=== PATIENT | female | born 1955 | race Caucasian/White ===

== ENCOUNTER 2016-11-28 22:41 | Emergency (ER) | payer BC, OTHER ==
[~2016-11-28] VITALS: Ht 161.3 cm; Wt 67.1 kg
[~2016-11-28 22:41] MED LIST: ALPR1TAB3 PO; ASPI325T39 PO; ATV5 PO; CALCTAB65 PO; EFF75 PO; GABA-112 PO; LEVO50TA PO; MULT-506 PO; ONDA4TAB46 PO; POTA10CA28 PO; PRLSR20 PO; RANI150T3 PO; TOPI200T14 PO; TRAM-10 PO; VALA500T60 PO; VENL150C56 PO
[2016-11-28 22:42] VITALS: TEMP 37.3; Ht 161.3 cm; Wt 67.1 kg
--- NOTE | 2016-11-28 23:17 | EMERGENCY ROOM VISIT NOTE ---
History Report prepared by Jairo: Marlon Rosado Under the Supervision of: Dr. Leanna Chery M.D. First contact with patient: 23:07 Chief Complaint: HEADACHE Stated Complaint: HEADACHE, NAUSEA, VOMITING History of Present Illness The patient is a 61 year old female who presents to the Emergency Room with complaints of a severe and worsening migraine headache that began yesterday. The patient states that her headache began yesterday, as her headaches usually do but it worsened significantly today. This headache is unlike her usual headaches in severity and its radiation. She states that the headache pain covered her entire head initially, and then concentrated to the left side. This afternoon the pain began to radiate into her jaw and down the back of her neck, which is unusual. The patient also vomited today secondary to the pain, which she has never experienced with her headaches before. There was no blood in her vomit. The patient received pain medications from EMS prior to arrival, which improved her condition slightly. The patient does have a history of a migraine induced stroke. Source of History: patient Onset: One day [employer] Position: head Symptom Intensity: severe Timing: worsening Associated Symptoms: + neck pain, + vomiting Note: Pain radiating into her jaw Review of Systems See HPI for pertinent positives & negatives. A total of 10 systems reviewed and were otherwise negative. Past Medical & Surgical Medical Problems: (1) Anxiety State Nos (2) Appendectomy (3) CVA (cerebral vascular accident) (4) Cystocele (5) Depressive Disorder Nec (6) Ectopic (7) Facial paresthesia (8) Hx-Venous Thrombosis&Embolism (9) Hysterectomy (10) Irritable Bowel Syndrome (11) Migraine Unspecified W/O Intractable Migraine (12) Mitral Valve Disorder (13) Old Myocardial Infarct (14) Paresthesia of both lower extremities (15) Pure Hypercholesterolem (16) RECTOCELE (17) Removal of ovarian cyst (18) Restless Legs Syndrome Family History Diabetes mellitus FHx: heart disease Social History Smoking Status: Never Smoker Drug Use: none Marital Status: Occupation Status: employed Current/Historical Medications Scheduled Aspirin (Aspirin Ec), 325 MG PO DAILY Calcium Carbonate-Vitamin D (Calcium 500 + D), 2 TAB PO DAILY Gabapentin (Gabapentin), 300 MG PO AMHS Gabapentin (Gabapentin), 200 MG PO AMHS Gabapentin (Neurontin), 200 MG PO BIDM Gabapentin (Neurontin), 100 MG PO QPM Levothyroxine Sodium (Synthroid), 50 MCG PO DAILY Multivitamin (Multivitamin), 1 TAB PO DAILY Omeprazole (Prilosec), 20 MG PO BID Potassium Chloride (Potassium Chloride Sr), 10 MEQ PO DAILY Ranitidine Hcl (Zantac), 150 MG PO BID Valacyclovir (Valtrex), 500 MG PO HS Venlafaxine Hcl (Effexor), 75 MG PO QPM Venlafaxine Hcl (Effexor Extended Rel), 150 MG PO QAM Scheduled PRN Alprazolam (Xanax), 1 MG PO DAILY PRN for Anxiety Lorazepam (Lorazepam), 0.5-1 MG PO HS PRN for Sleep Ondansetron Hcl (Zofran), 4 MG PO Q8 PRN for Nausea Tramadol (Ultram), 100 MG PO Q6H PRN for Pain Allergies Coded Allergies: Erythromycin (Unverified Allergy, Unknown, UNKNOWN, 11/28/16) Macrolides (Verified Adverse Reaction, Unknown, STOMACH UPSET, 11/28/16) Physical Exam Vital Signs Date Time Temp Pulse Resp B/P Pulse Ox O2 Delivery O2 Flow Rate FiO2 11/29/16 05:03 64 14 95 11/29/16 04:59 106/80 11/29/16 04:58 63 22 96 11/29/16 04:53 64 13 95 11/29/16 04:48 63 17 95 11/29/16 04:43 63 17 95 11/29/16 04:38 65 14 95 11/29/16 04:33 62 14 95 11/29/16 04:28 63 14 95 11/29/16 04:23 62 18 94 11/29/16 04:18 60 17 94 11/29/16 04:13 59 17 95 11/29/16 04:09 61 11/29/16 04:08 61 16 94 11/29/16 04:03 62 18 94 11/29/16 03:58 62 13 117/68 94 11/29/16 03:53 65 14 94 11/29/16 03:48 70 14 94 11/29/16 03:43 62 15 93 11/29/16 03:38 64 15 93 11/29/16 03:33 65 18 93 Room Air 11/29/16 03:03 63 15 96 Room Air 11/29/16 02:58 118/64 11/29/16 02:46 65 15 94 Room Air 11/29/16 02:41 64 17 94 Room Air 11/29/16 01:58 126/77 11/29/16 01:41 69 22 93 Room Air 11/29/16 01:31 63 16 127/74 94 Room Air 11/29/16 01:25 127/74 11/29/16 00:41 65 21 95 11/29/16 00:14 60 11/29/16 00:11 62 19 148/83 96 Room Air 11/29/16 00:09 148/83 11/28/16 22:42 37.3 69 18 153/83 96 Room Air Physical Exam Vital signs reviewed. General: Elderly well-appearing female, in some discomfort. No meningeal sings. HEENT: No scleral icterus, PERRLA, neck supple. Atraumatic. Cardiovascular: Regular rate and rhythm, no extra sounds. Pulmonary: Clear to auscultation bilaterally, normal work of breathing. Abdomen: Soft, nontender, nondistended, positive bowel sounds. Musculoskeletal: Atraumatic, no peripheral edema. Neurologic: Patient awake alert and oriented x 3, full strength in all 4 extremities. Cranial nerves 2 through 12 grossly intact. Skin: Warm, dry, no rash Medical Decision & Procedures ER Provider Diagnostic Interpretation: Radiology results as stated below per my interpretation and radiologist interpretation. Other radiology results as stated below per my review and radiologist interpretation: CT HEAD: No acute intracranial abnormality. No ICH, mass effect or edema. No evidence of acute cortical stroke. Cortical atrophy and white matter changes most consistent with chronic small vessel disease. Radiologist Poli Crawford MD Study ready at 0009 and initial results transmitted at 0035. Laboratory Results 11/28/16 21:56 Red Blood Count 4.12, Mean Corpuscular Volume 91.3, Mean Corpuscular Hemoglobin 31.3, Mean Corpuscular Hemoglobin Concent 34.3, Mean Platelet Volume 9.7, Neutrophils (%) (Auto) 87.3, Lymphocytes (%) (Auto) 9.6, Monocytes (%) (Auto) 2.5, Eosinophils (%) (Auto) 0.0, Basophils (%) (Auto) 0.3, Neutrophils # (Auto) 6.58, Lymphocytes # (Auto) 0.72, Monocytes # (Auto) 0.19, Eosinophils # (Auto) 0.00, Basophils # (Auto) 0.02 11/28/16 21:56 Test 11/28/16 21:56 White Blood Count 7.53 K/uL (4.8-10.8) Red Blood Count 4.12 M/uL (4.2-5.4) Hemoglobin 12.9 g/dL (12.0-16.0) Hematocrit 37.6 % (37-47) Mean Corpuscular Volume 91.3 fL (80-100) Mean Corpuscular Hemoglobin 31.3 pg (25-34) Mean Corpuscular Hemoglobin Concent 34.3 g/dl (32-36) Platelet Count 279 K/uL (130-400) Mean Platelet Volume 9.7 fL (7.4-10.4) Neutrophils (%) (Auto) 87.3 % Lymphocytes (%) (Auto) 9.6 % Monocytes (%) (Auto) 2.5 % Eosinophils (%) (Auto) 0.0 % Basophils (%) (Auto) 0.3 % Neutrophils # (Auto) 6.58 K/uL (1.4-6.5) Lymphocytes # (Auto) 0.72 K/uL (1.2-3.4) Monocytes # (Auto) 0.19 K/uL (0.11-0.59) Eosinophils # (Auto) 0.00 K/uL (0-0.5) Basophils # (Auto) 0.02 K/uL (0-0.2) RDW Standard Deviation 42.9 fL (36.4-46.3) RDW Coefficient of Variation 12.8 % (11.5-14.5) Immature Granulocyte % (Auto) 0.3 % Immature Granulocyte # (Auto) 0.02 K/uL (0.00-0.02) Anion Gap 12.0 mmol/L (3-11) Est Creatinine Clear Calc Drug Dose 74.3 ml/min Estimated GFR () 100.4 Estimated GFR (Non- 86.6 BUN/Creatinine Ratio 9.9 (10-20) Calcium Level 9.6 mg/dl (8.5-10.1) Total Bilirubin 0.2 mg/dl (0.2-1) Direct Bilirubin < 0.1 mg/dl (0-0.2) Aspartate Amino Transf (AST/SGOT) 16 U/L (15-37) Alanine Aminotransferase (ALT/SGPT) 28 U/L (12-78) Alkaline Phosphatase 111 U/L (45-117) Total Protein 7.7 gm/dl (6.4-8.2) Albumin 4.1 gm/dl (3.4-5.0) Laboratory results per my review. Medications Administered Medications (Trade) Dose Ordered Sig/Liane Route Start Time Stop Time Status Last Admin Dose Admin Sodium Chloride (Nss 1000ml) 1,000 ml @ 150 mls/hr Q6H40M STAT IV 11/28/16 23:27 11/29/16 05:37 DC 11/29/16 00:08 150 MLS/HR Morphine Sulfate 2 mg 2 mg NOW STAT IV 11/29/16 00:56 11/29/16 00:57 DC 11/29/16 01:25 2 MG Promethazine HCl/ Sodium Chloride (Phenergan Inj/ Nss 50ml) 50.5 ml @ 204 mls/hr NOW STAT IV 11/29/16 01:13 11/29/16 01:27 DC 11/29/16 01:25 204 MLS/HR ED Course 2310: Past medical records reviewed. The patient was evaluated in room A10. A complete history and physical examination was performed. 2327: Ordered Sodium Chloride 1000 mL @ 150 mL/hr IV. 0051: I reevaluated the patient at this time. Her headachy symptoms have improved, but her son has left for work. The patient does not have a way home without her son and she lives 30 minutes away from the hospital. We are trying to find transportation home for the patient. 0056: Ordered Morphine Sulfate 2 mg IV. 0113: Ordered Promethazine HCl 50.5 mL @ 204 mL/hr IV. 0144: Upon reevaluation the patient has shown improvement of her symptoms and is ready for discharge. The patient will wait in the Emergency Department until her son arrives to pick her up. The patient will be discharged home under self- care. Medical Decision The patient's history was concerning for headache. Differential diagnosis: Etiologies such as migraine headache, meningitis, sinusitis, CO exposure, ICH, SAH, infection, tumor, headache, sinus thrombosis, arterial dissection, as well as others were entertained. This patient was evaluated and appeared to be in some discomfort. IV access was obtained and laboratory work was drawn. The patient was hydrated with normal saline solution. She was medicated with IV morphine and Phenergan for her headache. CT scan of the head was obtained and is negative for acute intracranial abnormality. The patient was informed of the findings. She had significant relief of her symptoms. The patient was discharged follow-up with her primary care provider and to return to the ER for worsening of symptoms or any medical concerns. Impression Primary Impression: Headache, migraine, intractable Scribe Attestation The scribe's documentation has been prepared under my direction and personally reviewed by me in its entirety. I confirm that the note above accurately reflects all work, treatment, procedures, and medical decision making performed by me. Departure Information Dispostion Home / Self-Care Referrals Angelina Hobbs C.R.N.P (PCP) Forms HOME CARE DOCUMENTATION FORM, IMPORTANT VISIT INFORMATION Patient Instructions My [facility] Additional Instructions Diagnosis: Migraine headache Drink plenty of clear fluids. Continue your medications as prescribed. Follow-up with your physician for reevaluation this week. Return to the ER for worsening symptoms or any medical concerns. Problem Qualifiers Primary Impression: Headache, migraine, intractable Migraine type: unspecified Status migrainosus presence: with status migrainosus Qualified Codes: G43.911 - Migraine, unspecified, intractable, with status migrainosus
[2016-11-28] MEDS ORDERED: SODIUM CHLORIDE 0.9% 1000ML 1,000 ML IV STA (23:27)
[2016-11-28 23:36] LABS: BASO % 0.3 %; BASO ABS # 0.02 K/uL (0-0.2); COMPLETE YES; HEMATOCRIT 37.6 % (37-47); IG% 0.3 %; LYMPH % 9.6 %; LYMPH ABS # 0.72 K/uL (1.2-3.4); MEAN CELL VOLUME 91.3 fL (80-100); MEAN CORPUSCULAR HEMOGLOBIN 31.3 pg (25-34); MEAN CORPUSCULAR HGB CONC 34.3 g/dl (32-36); MEAN PLATELET VOLUME 9.7 fL (7.4-10.4); MONO % 2.5 %; NEUT % 87.3 %; PLATELET COUNT 279 K/uL (130-400); RED BLOOD COUNT 4.12 M/uL (4.2-5.4); WHITE BLOOD COUNT 7.53 K/uL (4.8-10.8)
[2016-11-28] MEDS ORDERED: POTA10TA33 PO (23:45)
[2016-11-28] MEDS ORDERED: ATV5X PO (23:46)
[2016-11-28] MEDS ORDERED: GABA1CAP4 PO (23:50)
[2016-11-28] MEDS ORDERED: NRN100 PO (23:50)
[2016-11-28 23:54] LABS: ALT/SGPT 28 U/L (12-78); AST/SGOT 16 U/L (15-37); BLOOD UREA NITROGEN 7 mg/dl (7-18); BUN/CREATININE RATIO 9.9 (10-20); CALCIUM 9.6 mg/dl (8.5-10.1); CARBON DIOXIDE 28 mmol/L (21-32); CHLORIDE 102 mmol/L (98-107); CREATININE 0.75 mg/dl (0.60-1.20); GLUCOSE 116 mg/dl (70-99); POTASSIUM 3.9 mmol/L (3.5-5.1); SODIUM 142 mmol/L (136-145)
[2016-11-28] MEDS ORDERED: GABA-112 PO ×2 (23:54)
[2016-11-28 23:57] LABS: ALKALINE PHOSPHATASE 111 U/L (45-117)
[2016-11-29] MEDS ORDERED: MoRPHine SULFATE 2 MG/ML CARP IV STA (00:56)
[2016-11-29] MEDS ORDERED: PROMETHAZINE HCL INJ 12.5 MG in SODIUM CHLORIDE 0.9% 50ML 50 ML IV STA (01:13)
[2016-11-29 04:59] VITALS: BP 106/80
[2016-11-29 05:03] VITALS: PULSE 64; O2SAT 95
--- NOTE | 2016-11-29 06:35 | DIAGNOSTIC IMAGING REPORT ---
CT HEAD WITHOUT CONTRAST (CT) CLINICAL HISTORY: Severe headache COMPARISON STUDY: 07/31/2016 TECHNIQUE: Axial CT of the brain is performed from the vertex to the skull base. IV contrast was not administered for this examination. CT DOSE: 537.48 mGy.cm FINDINGS: No intra or extra-axial mass lesions are visualized. There is no CT evidence of acute cortical infarction. There is no evidence of midline shift. There is no acute hemorrhage. No calvarial fractures are visualized. There are patchy white matter hypodensities likely on a small vessel basis. There is no evidence of pathologic ventricular dilatation. There is no evidence of acute sinusitis IMPRESSION: No acute intracranial findings Electronically signed by: Benny Rosales M.D. 11/29/2016 6:33 AM Dictated Date/Time: 11/29/2016 6:30 AM
[2017-03-17] MEDS ORDERED: VERA120T65 PO (13:37)
== END 2016-11-29 05:10 | disposition home or self-care (01) ==
LOC: EDBD 22:41 → C.EDA 22:44
DX: G43.919 Migraine, unspecified, intractable, without status migrainosus (principal); E78.00 Pure hypercholesterolemia, unspecified; Z86.73 Personal history of transient ischemic attack (TIA), and cerebral infarction without residual deficits; K58.9 Irritable bowel syndrome, unspecified; I25.2 Old myocardial infarction; Z79.82 Long term (current) use of aspirin

== ENCOUNTER → 2017-03-10 | Outpatient (CLI) | payer BC, OTHER ==
[~2017-03-10] MED LIST changes: +AMX875 PO; +ASPI-589 PO; -ATV5 PO; +ATV5X PO; +CALC-20 PO; +FLUT0.15 NAE; +GABA1CAP4 PO; +GABA1CAP5 PO; +GNTOPO OP; +LORA-741 PO; +MAGN400T6 PO; +MELATAB2 PO; +NRN100 PO; +OMEG10007 PO; -POTA10CA28 PO; +POTA10TA32 PO; +POTA10TA33 PO; +RIBO1TAB4 PO; -TOPI200T14 PO; +VERA120T65 PO
== END | disposition home or self-care (01) ==
LOC: C.LABPVFM 11:24
PROVIDERS: ATTEND Family Medicine
DX: J02.9 Acute pharyngitis, unspecified (principal)

== ENCOUNTER 2017-03-13 22:15 | Inpatient (IN) | payer OTHER ==
[~2017-03-13] VITALS: Ht 160 cm; Wt 64.4 kg
[~2017-03-13 22:15] MED LIST changes: -AMX875 PO; -ASPI-589 PO; -CALC-20 PO; -FLUT0.15 NAE; -GABA1CAP5 PO; -GNTOPO OP; -LORA-741 PO; -MAGN400T6 PO; -MELATAB2 PO; -OMEG10007 PO; -POTA10TA32 PO; -RIBO1TAB4 PO; -VERA120T65 PO
[2017-03-13] MEDS ORDERED: SODIUM CHLORIDE 0.9% 1000ML 1,000 ML IV SCH (22:34)
--- NOTE | 2017-03-13 22:38 | EMERGENCY ROOM VISIT NOTE ---
History Report prepared by Jairo: Ish Blas Under the Supervision of: Dr. Jignesh Mclaughlin D.O. First contact with patient: 22:29 Chief Complaint: STROKE SYMPTOMS Stated Complaint: LF ARM NUMBNESS, WEAKNESS History of Present Illness The patient is a 61 year old female who presents to the Emergency Room with complaints of persistent neurologic symptoms that started at approximately 2100 tonight. The patient complains of facial numbness and some tingling in her left leg. She denies headache, speech slurring, or changes in her vision. The patient has a history of CVA. She is not currently on blood thinners but does take aspirin daily. She did take aspirin earlier today. Source of History: patient Onset: 2100 tonight Position: other (facial) Quality: numbness (numbness) Timing: other (persistent) Associated Symptoms: No headache Review of Systems See HPI for pertinent positives and negatives. A total of ten systems were reviewed and were otherwise negative. Past Medical & Surgical Medical Problems: (1) Anxiety State Nos (2) Appendectomy (3) CVA (cerebral vascular accident) (4) Cystocele (5) Depressive Disorder Nec (6) Ectopic (7) Facial paresthesia (8) Hx-Venous Thrombosis&Embolism (9) Hysterectomy (10) Irritable Bowel Syndrome (11) Migraine Unspecified W/O Intractable Migraine (12) Mitral Valve Disorder (13) Old Myocardial Infarct (14) Paresthesia of both lower extremities (15) Pure Hypercholesterolem (16) RECTOCELE (17) Removal of ovarian cyst (18) Restless Legs Syndrome Family History Diabetes mellitus FHx: heart disease Social History Smoking Status: Never Smoker Drug Use: none Marital Status: Occupation Status: employed Current/Historical Medications Scheduled Amoxicillin (Amoxicillin), 1 TAB PO Q12 Aspirin (Aspirin Adult Low Dose), 81 MG PO DAILY Calcium Carbonate-Vitamin D (Calcium 600 + D), 1 TAB PO DAILY Fish Oil ([place]-3), 1-2 CAP PO DAILY Fluticasone Propionate (Nasal) (Flonase Allergy Relief), 1 SPRAY DENA BID Gabapentin (Neurontin), 400 MG PO QID Gentamicin Sulfate (Gentak), 1 APPLN OP TID Levothyroxine Sodium (Synthroid), 50 MCG PO DAILY Magnesium Oxide (Mag-Ox), 400 MG PO DAILY Melatonin (Melatonin Maximum Strengt), 10 MG PO HS Multivitamin (Multivitamin), 1 TAB PO DAILY Omeprazole (Prilosec), 20 MG PO BID Potassium Chloride Microencaps (Potassium Chloride Er), 10 MEQ PO DAILY Ranitidine Hcl (Zantac), 150 MG PO BID Riboflavin (Riboflavin), 400 MG PO DAILY Valacyclovir (Valtrex), 500 MG PO HS Venlafaxine Hcl (Effexor), 75 MG PO QPM Venlafaxine Hcl (Effexor Extended Rel), 150 MG PO QAM Scheduled PRN Lorazepam (Lorazepam), 0.5-1 MG PO HS PRN for Sleep Lorazepam (Ativan), 0.5 MG PO DAILY PRN for Anxiety Ondansetron Hcl (Zofran), 4 MG PO Q8 PRN for Nausea Allergies Coded Allergies: Erythromycin (Unverified Allergy, Unknown, UNKNOWN, 11/28/16) Macrolides (Verified Adverse Reaction, Unknown, STOMACH UPSET, 11/28/16) Physical Exam Vital Signs Date Time Temp Pulse Resp B/P Pulse Ox O2 Delivery O2 Flow Rate FiO2 03/13/17 23:07 98 Room Air 03/13/17 22:26 37.0 68 16 167/98 97 Room Air 03/13/17 22:21 73 Physical Exam GENERAL: Awake, alert, well-appearing, in no distress HENT: Normocephalic, atraumatic. Oropharynx unremarkable. EYES: Normal conjunctiva. Sclera non-icteric. NECK: Supple. No nuchal rigidity. FROM. No JVD. RESPIRATORY: Clear to auscultation. CARDIAC: Regular rate, normal rhythm. Extremities warm and well perfused. Pulses equal. ABDOMEN: Soft, non-distended. No tenderness to palpation. No rebound or guarding. No masses. RECTAL: Deferred. MUSCULOSKELETAL: Chest examination reveals no tenderness. The back is symmetrical on inspection without obvious abnormality. There is no CVA tenderness to palpation. No joint edema. LOWER EXTREMITIES: Calves are equal size bilaterally and non-tender. No edema. No discoloration. NEURO: Normal sensorium. No sensory or motor deficits noted. NIH 0. SKIN: No rash or jaundice noted. Medical Decision & Procedures ER Provider Diagnostic Interpretation: CT: Radiology results as stated below per my review and radiologist interpretation CT OF THE HEAD WITHOUT CONTRAST CLINICAL HISTORY: Left arm numbness and weakness. Stroke. COMPARISON STUDY: Head CT November 29, 2016. CT DOSE: 537.48 mGy.cm TECHNIQUE: Helical axial images of the head were obtained without IV contrast. Automated exposure control was utilized for the study. FINDINGS: No acute intracranial hemorrhage, midline shift or mass effect is present. Ventricular system is normal. Basilar cisterns are patent. There are no extra-axial collections. Cruz-white differentiation is preserved. White matter hypodensities are unchanged. There are no findings to suggest acute dural sinus thrombosis or acute territorial infarct. There are no calvarial abnormalities. Visualized portions of the sinuses and the mastoid air cells are clear. IMPRESSION: No acute intracranial findings. Electronically signed by: Nathaniel Hamilton M.D. 03/13/2017 10:57 PM Dictated Date/Time: 03/13/2017 10:52 PM Laboratory Results 03/13/17 21:57 Red Blood Count 4.14, Mean Corpuscular Volume 91.1, Mean Corpuscular Hemoglobin 30.4, Mean Corpuscular Hemoglobin Concent 33.4, Mean Platelet Volume 9.4, Neutrophils (%) (Auto) 34.5, Lymphocytes (%) (Auto) 51.0, Monocytes (%) (Auto) 11.7, Eosinophils (%) (Auto) 2.2, Basophils (%) (Auto) 0.4, Neutrophils # (Auto ) 1.70, Lymphocytes # (Auto) 2.52, Monocytes # (Auto) 0.58, Eosinophils # (Auto ) 0.11, Basophils # (Auto) 0.02 03/13/17 21:57 Test 03/13/17 21:57 03/13/17 23:06 03/13/17 23:30 White Blood Count 4.94 K/uL (4.8-10.8) Red Blood Count 4.14 M/uL (4.2-5.4) Hemoglobin 12.6 g/dL (12.0-16.0) Hematocrit 37.7 % (37-47) Mean Corpuscular Volume 91.1 fL (80-100) Mean Corpuscular Hemoglobin 30.4 pg (25-34) Mean Corpuscular Hemoglobin Concent 33.4 g/dl (32-36) Platelet Count 253 K/uL (130-400) Mean Platelet Volume 9.4 fL (7.4-10.4) Neutrophils (%) (Auto) 34.5 % Lymphocytes (%) (Auto) 51.0 % Monocytes (%) (Auto) 11.7 % Eosinophils (%) (Auto) 2.2 % Basophils (%) (Auto) 0.4 % Neutrophils # (Auto) 1.70 K/uL (1.4-6.5) Lymphocytes # (Auto) 2.52 K/uL (1.2-3.4) Monocytes # (Auto) 0.58 K/uL (0.11-0.59) Eosinophils # (Auto) 0.11 K/uL (0-0.5) Basophils # (Auto) 0.02 K/uL (0-0.2) RDW Standard Deviation 43.5 fL (36.4-46.3) RDW Coefficient of Variation 13.1 % (11.5-14.5) Immature Granulocyte % (Auto) 0.2 % Immature Granulocyte # (Auto) 0.01 K/uL (0.00-0.02) Red Blood Cell Morphology Unremarkable Prothrombin Time 9.9 SECONDS (9.0-12.0) Prothromb Time International Ratio 0.9 (0.9-1.1) Activated Partial Thromboplast Time 26.3 SECONDS (21.0-31.0) Partial Thromboplastin Ratio 1.0 Anion Gap 7.0 mmol/L (3-11) Est Creatinine Clear Calc Drug Dose 70.5 ml/min Estimated GFR () 95.8 Estimated GFR (Non- 82.6 BUN/Creatinine Ratio 17.8 (10-20) Calcium Level 9.1 mg/dl (8.5-10.1) Troponin I < 0.015 ng/ml (0-0.045) Bedside Prothrombin Time INR 0.9 (0.9-1.1) Bedside Glucose 99 mg/dl (70-90) Laboratory results reviewed by me Medications Administered Medications (Trade) Dose Ordered Sig/Liane Route Start Time Stop Time Status Last Admin Dose Admin Sodium Chloride (Nss 1000ml) 1,000 ml @ 50 mls/hr Q20H IV 03/13/17 22:34 04/12/17 22:33 03/13/17 23:48 50 MLS/HR ECG Indication: other (numbness) Rate (beats per minute): 72 Rhythm: normal sinus Findings: no acute ischemic change, other (normal axis) ED Course 2230: The patient was evaluated in room A11A. A complete history and physical exam was performed. 2234: NSS 1000 ml @ 50 mls/hr. 5: Aspirin 162 mg PO. 0000: [facility] The [facility] be [facility]. Medical Decision Differential diagnosis includes TIA, CVA, paraesthesias, anxiety, metabolic derangement. Patient has an NIH score of 0, patient is not a TPA candidate at this time. Patient was given aspirin. Patient was admitted to the hospitalist for further evaluation of neurologic symptoms at 12:05 AM Consults Time Called: 2350 Consulting Physician[facility] Return[facility] Call: 0000 The patient will be evaluated. Impression Primary Impression: TIA (transient ischemic attack) Scribe Attestation The scribe's documentation has been prepared under my direction and personally reviewed by me in its entirety. I confirm that the note above accurately reflects all work, treatment, procedures, and medical decision making performed by me. Departure Information Dispostion Being Evaluated By Hospitalist Referrals No Doctor, Assigned (PCP) Patient Instructions My [facility] Stroke t-PA Criteria Reviewed Does NOT meet criteria for t-PA Reason t-PA Not Given Treatment not indicated Problem Qualifiers Primary Impression: TIA (transient ischemic attack) Transient cerebral ischemia type: unspecified Qualified Codes: G45.9 - Transient cerebral ischemic attack, unspecified
[2017-03-13 22:46] LABS: HEMATOCRIT 37.7 % (37-47); MEAN CELL VOLUME 91.1 fL (80-100); MEAN CORPUSCULAR HEMOGLOBIN 30.4 pg (25-34); MEAN CORPUSCULAR HGB CONC 33.4 g/dl (32-36); MEAN PLATELET VOLUME 9.4 fL (7.4-10.4); PLATELET COUNT 253 K/uL (130-400); RED BLOOD COUNT 4.14 M/uL (4.2-5.4); WHITE BLOOD COUNT 4.94 K/uL (4.8-10.8)
[2017-03-13 22:57] LABS: INR 0.9 (0.9-1.1); PROTHROMBIN TIME (PATIENT) 9.9 SECONDS (9.0-12.0)
--- NOTE | 2017-03-13 22:58 | DIAGNOSTIC IMAGING REPORT ---
CT OF THE HEAD WITHOUT CONTRAST CLINICAL HISTORY: Left arm numbness and weakness. Stroke. COMPARISON STUDY: Head CT November 29, 2016. CT DOSE: 537.48 mGy.cm TECHNIQUE: Helical axial images of the head were obtained without IV contrast. Automated exposure control was utilized for the study. FINDINGS: No acute intracranial hemorrhage, midline shift or mass effect is present. Ventricular system is normal. Basilar cisterns are patent. There are no extra-axial collections. Cruz-white differentiation is preserved. White matter hypodensities are unchanged. There are no findings to suggest acute dural sinus thrombosis or acute territorial infarct. There are no calvarial abnormalities. Visualized portions of the sinuses and the mastoid air cells are clear. IMPRESSION: No acute intracranial findings. Electronically signed by: Nathaniel Hamilton M.D. 03/13/2017 10:57 PM Dictated Date/Time: 03/13/2017 10:52 PM
[2017-03-13 23:02] LABS: BLOOD UREA NITROGEN 14 mg/dl (7-18); BUN/CREATININE RATIO 17.8 (10-20); CALCIUM 9.1 mg/dl (8.5-10.1); CARBON DIOXIDE 31 mmol/L (21-32); CHLORIDE 105 mmol/L (98-107); CREATININE 0.78 mg/dl (0.60-1.20); GLUCOSE 97 mg/dl (70-99); POTASSIUM 3.8 mmol/L (3.5-5.1); SODIUM 143 mmol/L (136-145)
[2017-03-13 23:06] LABS: BASO % 0.4 %; BASO ABS # 0.02 K/uL (0-0.2); COMPLETE YES; EOS % 2.2 %; IG% 0.2 %; LYMPH ABS # 2.52 K/uL (1.2-3.4); MONO % 11.7 %; NEUT % 34.5 %
[2017-03-13] MEDS ORDERED: LORA-741 PO (23:24)
[2017-03-13] MEDS ORDERED: POTA10TA32 PO (23:27)
[2017-03-13] MEDS ORDERED: MELATAB2 PO (23:32)
[2017-03-13] MEDS ORDERED: GABA1CAP5 PO (23:32)
[2017-03-13] MEDS ORDERED: MAGN400T6 PO (23:33)
[2017-03-13] MEDS ORDERED: CALC-20 PO (23:33)
[2017-03-13] MEDS ORDERED: AMX875 PO (23:40)
[2017-03-13] MEDS ORDERED: ASPI-589 PO (23:41)
[2017-03-13] MEDS ORDERED: FLUT0.15 NAE (23:42)
[2017-03-13] MEDS ORDERED: OMEG10007 PO (23:42)
[2017-03-13] MEDS ORDERED: GNTOPO OP (23:43)
[2017-03-13] MEDS ORDERED: RIBO1TAB4 PO (23:44)
[2017-03-13] MEDS ORDERED: ASPIRIN 81 MG CHEW PO SCH (23:45)
[2017-03-14] VITALS (11 sets, daily range): BP systolic 130–173; BP diastolic 80–95; PULSE 62–75; TEMP 36.4–36.8; O2SAT 93–100; Ht 160 cm; Wt 64.4 kg
--- NOTE | 2017-03-14 00:36 | History and Physical ---
History & Physical Date & Time of Service: March 14, 2017 at 00:31 Chief Complaint: Lf Arm Numbness, Weakness Primary Care Physician: Angelina Hobbs C.R.N.P History of Present Illness Source: patient 61 y/o F w/Hx SLE and complex migraines. She reports a history of 3 prior CVAs the last of which was in 07/30. She presents with acute L sided numbness and parasthesias which began on the L side of her face and then extended to her L arm and L leg. She denies weakness although she does have a degree of facial asymmetry on arrival involving the L side of her mouth. She denies any CP, SOB , N/V or fevers. She has not recently had a migraine. In 07/30 the pt was admitted with L numbness and additionally had an impaired gait with LLE weakness. An MRI was most consistent with an acute parietal CVA however a demyelinating process was viewed as an alternative diagnosis. She has not been treated for SLE for 2 years. She takes daily ASA and fish oil. She is Statin intolerant. Past Medical/Surgical History Medical Problems: (1) Anxiety State Nos Status: Chronic (2) Appendectomy Status: Resolved (3) Cystocele Status: Resolved (4) Depressive Disorder Nec Status: Chronic (5) Ectopic Status: Resolved (6) Hx-Venous Thrombosis&Embolism Status: Resolved (7) Hysterectomy Status: Resolved (8) Irritable Bowel Syndrome Status: Chronic (9) Migraine Unspecified W/O Intractable Migraine Status: Chronic (10) Mitral Valve Disorder Status: Chronic (11) Old Myocardial Infarct Status: Chronic (12) Pure Hypercholesterolem Status: Chronic (13) RECTOCELE Status: Resolved (14) Removal of ovarian cyst Status: Resolved (15) Restless Legs Syndrome Status: Chronic 16) CVA x 3 - age 32 - states she lost sight for 3 days - age 56 - foot drop - 07/30 - impaired gait Family History Diabetes mellitus FHx: heart disease Mother owing to a CVA at age 81 Father alive - dementia Grandmother with CVA at age 62 Social History Smoking Status: Never Smoker Drug Use: none Marital Status: Housing status: lives with family Occupational Status: employed Immunizations History of Influenza Vaccine: No History of Tetanus Vaccine?: Yes Tetanus Immunization Date: Feb 24, 2004 History of Pneumococcal: No History of Hepatitis B Vaccine: No Multi-Drug Resistant Organisms History of MDRO: No Allergies Coded Allergies: Erythromycin (Unverified Allergy, Unknown, UNKNOWN, 11/28/16) Macrolides (Verified Adverse Reaction, Unknown, STOMACH UPSET, 11/28/16) Home Medications Scheduled Amoxicillin (Amoxicillin), 1 TAB PO Q12 Aspirin (Aspirin Adult Low Dose), 81 MG PO DAILY Calcium Carbonate-Vitamin D (Calcium 600 + D), 1 TAB PO DAILY Fish Oil ([place]-3), 1-2 CAP PO DAILY Fluticasone Propionate (Nasal) (Flonase Allergy Relief), 1 SPRAY DENA BID Gabapentin (Neurontin), 400 MG PO QID Gentamicin Sulfate (Gentak), 1 APPLN OP TID Levothyroxine Sodium (Synthroid), 50 MCG PO DAILY Magnesium Oxide (Mag-Ox), 400 MG PO DAILY Melatonin (Melatonin Maximum Strengt), 10 MG PO HS Multivitamin (Multivitamin), 1 TAB PO DAILY Omeprazole (Prilosec), 20 MG PO BID Potassium Chloride Microencaps (Potassium Chloride Er), 10 MEQ PO DAILY Ranitidine Hcl (Zantac), 150 MG PO BID Riboflavin (Riboflavin), 400 MG PO DAILY Valacyclovir (Valtrex), 500 MG PO HS Venlafaxine Hcl (Effexor), 75 MG PO QPM Venlafaxine Hcl (Effexor Extended Rel), 150 MG PO QAM Scheduled PRN Lorazepam (Lorazepam), 0.5-1 MG PO HS PRN for Sleep Lorazepam (Ativan), 0.5 MG PO DAILY PRN for Anxiety Ondansetron Hcl (Zofran), 4 MG PO Q8 PRN for Nausea Review of Systems Constitutional: No chills, No fever, No sweats Eyes: No worsening of vision ENT: No hearing loss, No nasal symptoms, No unusual epistaxis Respiratory: No cough, No sputum, No wheezing Cardiovascular: No PND, No chest pain, No orthopnea Abdomen: No nausea, No pain, No vomiting Musculoskeletal: No joint pain, No muscle pain Genitourinary - Female: No dysuria, No urinary frequency, No urinary urgency Neurologic: + numbness/tingling, No memory loss, No paralysis, No weakness Psychiatric: + depression symptoms Endocrine: No fatigue Hematologic / Lymphatic: No abnormal bleeding/bruising Integumentary: No rash Allergic / Immunologic: No environmental allergies Physical Exam Vital Signs Date Time Temp Pulse Resp B/P Pulse Ox O2 Delivery O2 Flow Rate FiO2 03/13/17 23:07 98 Room Air 03/13/17 22:26 37.0 68 16 167/98 97 Room Air 03/13/17 22:21 73 General Appearance: WD/WN, no apparent distress Head: normocephalic, atraumatic Eyes: normal inspection, PERRL, EOMI ENT: normal ENT inspection, hearing grossly normal, TMs normal, pharynx normal Neck: supple, no JVD Respiratory/Chest: chest non-tender, lungs clear, normal breath sounds, no respiratory distress, no accessory muscle use Cardiovascular: regular rate, rhythm, no edema, no gallop, no JVD, no murmur, normal peripheral pulses Abdomen/GI: normal bowel sounds, non tender, soft Back: normal inspection, no CVA tenderness, no muscle spasm, normal range of motion Extremities/Musculoskelatal: normal inspection, no calf tenderness, normal capillary refill, no pedal edema, normal range of motion Neurologic/Psych: + pertinent finding (Pertinent findings: AAO x 3, L lower facial doop - mild, no pronator drift or LE weakness, numbness to light touch L extremities, impaired coordination with intention tremor of LUE) Skin: normal color, warm/dry, no rash Diagnostics Laboratory Results Results Past 24 Hours Test 03/13/17 21:57 03/13/17 23:06 03/13/17 23:30 Range/Units White Blood Count 4.94 4.8-10.8 K/uL Red Blood Count 4.14 4.2-5.4 M/uL Hemoglobin 12.6 12.0-16.0 g/dL Hematocrit 37.7 37-47 % Mean Corpuscular Volume 91.1 80-100 fL Mean Corpuscular Hemoglobin 30.4 25-34 pg Mean Corpuscular Hemoglobin Concent 33.4 32-36 g/dl Platelet Count 253 130-400 K/uL Mean Platelet Volume 9.4 7.4-10.4 fL Neutrophils (%) (Auto) 34.5 % Lymphocytes (%) (Auto) 51.0 % Monocytes (%) (Auto) 11.7 % Eosinophils (%) (Auto) 2.2 % Basophils (%) (Auto) 0.4 % Neutrophils # (Auto) 1.70 1.4-6.5 K/uL Lymphocytes # (Auto) 2.52 1.2-3.4 K/uL Monocytes # (Auto) 0.58 0.11-0.59 K/uL Eosinophils # (Auto) 0.11 0-0.5 K/uL Basophils # (Auto) 0.02 0-0.2 K/uL RDW Standard Deviation 43.5 36.4-46.3 fL RDW Coefficient of Variation 13.1 11.5-14.5 % Immature Granulocyte % (Auto) 0.2 % Immature Granulocyte # (Auto) 0.01 0.00-0.02 K/uL Red Blood Cell Morphology Unremarkable Prothrombin Time 9.9 9.0-12.0 SECONDS Prothromb Time International Ratio 0.9 0.9-1.1 Activated Partial Thromboplast Time 26.3 21.0-31.0 SECONDS Partial Thromboplastin Ratio 1.0 Sodium Level 143 136-145 mmol/L Potassium Level 3.8 3.5-5.1 mmol/L Chloride Level 105 98-107 mmol/L Carbon Dioxide Level 31 21-32 mmol/L Anion Gap 7.0 3-11 mmol/L Blood Urea Nitrogen 14 7-18 mg/dl Creatinine 0.78 0.60-1.20 mg/dl Est Creatinine Clear Calc Drug Dose 70.5 ml/min Estimated GFR () 95.8 Estimated GFR (Non- 82.6 BUN/Creatinine Ratio 17.8 10-20 Random Glucose 97 70-99 mg/dl Calcium Level 9.1 8.5-10.1 mg/dl Troponin I < 0.015 0-0.045 ng/ml Bedside Prothrombin Time INR 0.9 0.9-1.1 Bedside Glucose 99 70-90 mg/dl Diagnostic Radiology CT brain: No acute findings Previous MRI 07/30 1. Nonspecific 7 mm focus of restricted water diffusion within the right anterior parietal white matter. This demonstrates post gadolinium enhancement. This could represent either an enhancing subacute infarct, or enhancing demyelinating plaque. Neoplasm is considered much less likely. 2. Progressive foci of increased T2 and FLAIR signal within the white matter.The findings are nonspecific and could be on a small vessel basis or secondary to other leukoencephalopathies. Clinical correlation and short-term follow-up MRI scanning is recommended. EKG NSR Impression Assessment and Plan 61 y/o F w/Hx SLE and complex migraines. She reports a history of 3 prior CVAs the last of which was in 07/30. She presents with acute L sided numbness and parasthesias which began on the L side of her face and then extended to her L arm and L leg. She denies weakness although she does have a degree of facial asymmetry on arrival involving the L side of her mouth. She denies any CP, SOB , N/V or fevers. She has not recently had a migraine. In 07/30 the pt was admitted with L numbness and additionally had an impaired gait with LLE weakness. An MRI was most consistent with an acute parietal CVA however a demyelinating process was viewed as an alternative diagnosis. She has not been treated for SLE for 2 years. She takes daily ASA and fish oil. She is Statin intolerant. 1) CVA - similar symptoms to previous admission 07/30 - Likely had a CVA at the time although diagnosis was not definitive. As demyelination was a possible diagnosis, we will obtain an MRI with and without Isak. A neurology consult is requested and she is admitted to telemetry under a CVA protocol. As she is taking daily ASA we have started her on Plavix as well. She is statin intolerant. The pt has a history of SLE - her current presentation is not consistent with vasculitis however we will obtain an ESR. 2) SLE - does not have typical flare symptoms - she was last treated 2 years prior. 3) Hypothyroidism - TSH pending - cont Synthroid 4) Depression - cont Venlafaxine 5) Record states history of NH - we could not confirm this Full code - Heparin prophylaxis - total time for this admit including review of records, meds, labs, CT, EKG - discussion with pt and ER attending - 40 min Level of Care Telemetry Resuscitation Status FULL RESUSCITATION VTE Prophylaxis Given or contraindicated: Unfractionated heparin SQ
[2017-03-14] MEDS ORDERED: LORAZEPAM 1 MG TAB PO PRN (01:00)
[2017-03-14] MEDS ORDERED: PHARMACIST DISCHARGE MED REC CONSULT PRN ×2 (01:00→10:15)
[2017-03-14] MEDS ORDERED: POLYETHYLENE (MIRALAX) 17 GM PACK PO PRN (01:00)
[2017-03-14] MEDS ORDERED: ALUMINUM/MAGNESIUM/SIMETH (MAALOX MAX) 30 ML UDC PO PRN (01:00)
[2017-03-14] MEDS ORDERED: MAGNESIUM HYDROXIDE SUSP 30 ML UDC PO PRN (01:00)
[2017-03-14] MEDS ORDERED: PNEUMOCOCCAL ADMINISTRATION CHARGE ONE (03:15)
[2017-03-14] MEDS ORDERED: PNEUMOCOCCAL POLYSACCHARIDES 25 MCG/0.5 ML VIAL/SYR IM. ONE (03:15)
[2017-03-14] MEDS: HEPARIN SOD 5000 UNIT/0.5 ML CARP SQ SCH ×3 (06:07→23:29)
[2017-03-14 08:29] LABS: BUN/CREATININE RATIO 17.5 (10-20); CREATININE 0.64 mg/dl (0.60-1.20)
[2017-03-14 08:30] LABS: CALCIUM 8.6 mg/dl (8.5-10.1)
[2017-03-14] MEDS ORDERED: CLOPIDOGREL BISULFATE 75 MG TAB PO SCH (09:00)
--- NOTE | 2017-03-14 09:22 | Neurology Consultation ---
Neurology Consultation Date of Consultation: March 14, 2017. Attending Physician: Lizy Fuller M.D. Primary Care Physician: Angelina Hobbs C.R.N.P Reason for Consultation: Numbness History of Present Illness Source: patient, hospital records The patient is a 61-year-old female who presented to the emergency department yesterday with a chief complaint of numbness. He complains of numbness affecting the left side of her face as well as the left arm and leg. These symptoms began acutely, last night at around 8:30. She also reports some associated left arm heaviness and discomfort as well as a subtle feeling of weakness affecting the left side of her face. Although the symptoms were reportedly mild, they have been fairly persistent since their onset. She does report a vague frontal headache with some associated nausea as well. She denies photophobia or sonophobia at this time. The patient does report a past medical history of complex migraine but feels that her current episode is somewhat different as her current headache is not that severe. Upon further questioning, she does complain of some associated blurry vision with the left eye only. She denies illness or fever. She denies significant neck or spinal pain. The patient was admitted to [facility] this past July with headache, left-sided weakness, and perhaps some confusion. A brain MRI at that time revealed a subtle area of restricted diffusion within the subcortical right parietal lobe potentially consistent with a subacute ischemic infarct versus focus of demyelination. I did review these images as well as the radiologist's interpretation. There also is evidence of chronic-appearing, confluent, patchy, white matter hyperintensity within both cerebral hemispheres , especially in the periventricular regions but some subcortical distribution as well, greater on the right. Past medical history also notable for lupus for which she has followed with rheumatology. In addition to last falls brain MRI reviewed the images pertaining to the recent CT of the head. There is no evidence of acute pathology. No hemorrhage, no hydrocephalus. There is some periventricular white matter lucency consistent with the previous MRI findings. Past Medical/Surgical History Medical Problems: (1) Ataxia Status: Acute (2) Headache Status: Acute (3) Headache, migraine, intractable Status: Acute (4) Left sided chest pain Status: Acute (5) Migraine Status: Acute (6) Precordial chest pain Status: Acute (7) TIA (transient ischemic attack) Status: Acute (8) Vomiting Status: Acute Family History Family history notable for stroke and dementia. Father: pertinent history of Mother: heart disease, pertinent history of Sibling(s): no pertinent history Grandmother: heart disease, pertinent history of Social History Smoking Status: Former smoker Drug Use: none Marital Status: Occupation Status: employed Allergies Coded Allergies: Erythromycin (Unverified Allergy, Unknown, UNKNOWN, 11/28/16) Macrolides (Verified Adverse Reaction, Unknown, STOMACH UPSET, 11/28/16) Current Inpatient Medications Current Inpatient Medications Medications (Trade) Dose Ordered Sig/Liane Route Start Time Stop Time Status Last Admin Dose Admin Aspirin (Ecotrin Tab) 162 mg QAM PO 03/14/17 09:00 04/13/17 08:59 Miscellaneous Information (Pharmacist Discharge Med Rec Consult) 1 ea UD PRN N/A 03/14/17 01:00 04/13/17 00:59 Heparin Sodium (Porcine) (Heparin Sq 5000 Unit/0.5ml) 5,000 unit Q8H SQ 03/14/17 06:00 04/13/17 05:59 03/14/17 06:07 5,000 UNIT Acetaminophen (Tylenol Tab) 650 mg Q4H PRN PO 03/14/17 01:00 04/13/17 00:59 Al Hydrox/Mg Hydrox/Simethicone (Maalox Max Susp) 15 ml Q4H PRN PO 03/14/17 01:00 04/13/17 00:59 Magnesium Hydroxide (Milk Of Magnesia Susp) 30 ml Q12H PRN PO 03/14/17 01:00 04/13/17 00:59 Ondansetron HCl (Zofran Inj) 4 mg Q6H PRN IV 03/14/17 01:00 04/13/17 00:59 Polyethylene (Miralax Powder Packet) 17 gm DAILY PRN PO 03/14/17 01:00 04/13/17 00:59 Fish Oil ([place]-3 (Purified Fish Oil) Cap) 2 gm DAILY PO 03/14/17 09:00 04/13/17 08:59 Gabapentin (Neurontin Cap) 400 mg QID PO 03/14/17 09:00 04/13/17 08:59 Levothyroxine Sodium (Synthroid Tab) 50 mcg DAILYBB PO 03/14/17 06:00 04/13/17 05:59 Lorazepam (Ativan Tab) 1 mg HS PRN PO 03/14/17 01:00 04/13/17 00:59 Lorazepam (Ativan Tab) 0.5 mg DAILY PRN PO 03/14/17 01:00 04/13/17 00:59 Magnesium Oxide (Mag-Ox Tab) 400 mg DAILY PO 03/14/17 09:00 04/13/17 08:59 Potassium Chloride (Klor-Con M10) 10 meq DAILY PO 03/14/17 09:00 04/13/17 08:59 Ranitidine HCl (zANTac TAB) 150 mg BID PO 03/14/17 09:00 04/13/17 08:59 Valacyclovir HCl (Valtrex Tab) 500 mg HS PO 03/14/17 21:00 03/24/17 20:59 Venlafaxine HCl (effeXOR EXTENDED REL CAP) 150 mg QAM PO 03/14/17 09:00 04/13/17 08:59 Venlafaxine HCl (effeXOR TAB) 75 mg QPM PO 03/14/17 21:00 04/13/17 20:59 Calcium/Vitamin D (Caltrate Plus Tab) 1 tab DAILY PO 03/14/17 09:00 04/13/17 08:59 Pantoprazole Sodium (Protonix Tab) 40 mg BID PO 03/14/17 09:00 04/13/17 08:59 Clopidogrel Bisulfate (plAVix TAB) 75 mg QAM PO 03/14/17 09:00 04/13/17 08:59 Review of Systems The patient denies fever, chills, hearing loss, vertigo, chest pain, palpitations, shortness of breath, coughing, wheezing, abdominal pain, diarrhea , dysuria, incontinence, muscle pain, spinal pain, rash, skin lesion, swollen glands, depression or anxiety. A full 10 point review of systems was obtained from this patient with pertinent positives and negatives described in the history of present illness and otherwise listed above. Physical Exam Vital Signs (Past 24 Hrs): Date Time Temp Pulse Resp B/P Pulse Ox O2 Delivery O2 Flow Rate FiO2 03/14/17 07:27 36.8 64 16 157/84 95 Room Air 03/14/17 04:00 Room Air 03/14/17 03:50 62 149/90 03/14/17 03:24 36.6 62 16 173/95 97 Room Air 03/14/17 02:00 36.4 18 150/80 97 Room Air 03/14/17 01:15 64 18 98 03/14/17 01:00 153/82 03/14/17 00:45 64 16 97 03/14/17 00:37 148/57 03/14/17 00:15 66 19 03/13/17 23:45 22 03/13/17 23:15 65 19 03/13/17 23:07 98 Room Air 03/13/17 22:26 37.0 68 16 167/98 97 Room Air 03/13/17 22:21 73 03/13/17 22:17 167/98 The patient is a well-developed elderly female, well-nourished, no acute distress. She is alert and oriented to person place and time and exhibits normal attention and concentration. She is able to name objects and repeat phrases without difficulty. She reads text without difficulty. Speech is fluent. She exhibits an age-appropriate fund of knowledge and normal vocabulary as well as intact recent and remote memory. Visual leigh full to confrontation. Visual acuity normal. Pupils equal round reactive to light and accommodation. Eye movements normal. No nystagmus. There is subtle relative diminished sensation along the left side of the face, primarily upper and mid face as compared to the left. There is subtle flattening of the left nasolabial fold although inconsistently observed. Palate elevates to midline. Tongue protrudes to midline. Shoulder shrug and hearing intact bilaterally. Sensation intact in all 4 limbs to light touch, temperature, proprioception, and vibration. Deep tendon reflexes are 2+ for the triceps, biceps, and brachial radialis bilaterally. 3+ at the patellar tendons bilaterally, 2+ at the Achilles tendons bilaterally. Plantar responses downgoing bilaterally. The patient has subtle difficulty with finger to nose on the left as compared to the right. She performs heel to saucedo normal bilaterally. No difficulty with rapid alternating movements. Ophthalmoscopic examination reveals normal- appearing optic nerves and posterior elements. No papilledema, no hemorrhages. Carotid pulses normal bilaterally, no bruits to auscultation. Musculoskeletal examination reveals normal strength in all 4 limbs proximally and distally. Muscle tone normal throughout. No atrophy. No abnormal movements observed. Gait and station normal. Laboratory Results Past 24 Hours: 03/14/17 07:05 Test 03/13/17 21:57 03/13/17 23:06 03/13/17 23:30 03/14/17 07:05 RDW Standard Deviation 43.5 fL (36.4-46.3) RDW Coefficient of Variation 13.1 % (11.5-14.5) White Blood Count 4.94 K/uL (4.8-10.8) Red Blood Count 4.14 M/uL (4.2-5.4) Hemoglobin 12.6 g/dL (12.0-16.0) Hematocrit 37.7 % (37-47) Mean Corpuscular Volume 91.1 fL (80-100) Mean Corpuscular Hemoglobin 30.4 pg (25-34) Mean Corpuscular Hemoglobin Concent 33.4 g/dl (32-36) Platelet Count 253 K/uL (130-400) Mean Platelet Volume 9.4 fL (7.4-10.4) Neutrophils (%) (Auto) 34.5 % Lymphocytes (%) (Auto) 51.0 % Monocytes (%) (Auto) 11.7 % Eosinophils (%) (Auto) 2.2 % Basophils (%) (Auto) 0.4 % Neutrophils # (Auto) 1.70 K/uL (1.4-6.5) Lymphocytes # (Auto) 2.52 K/uL (1.2-3.4) Monocytes # (Auto) 0.58 K/uL (0.11-0.59) Eosinophils # (Auto) 0.11 K/uL (0-0.5) Basophils # (Auto) 0.02 K/uL (0-0.2) Immature Granulocyte % (Auto) 0.2 % Immature Granulocyte # (Auto) 0.01 K/uL (0.00-0.02) Red Blood Cell Morphology Unremarkable Prothrombin Time 9.9 SECONDS (9.0-12.0) Prothromb Time International Ratio 0.9 (0.9-1.1) Activated Partial Thromboplast Time 26.3 SECONDS (21.0-31.0) Partial Thromboplastin Ratio 1.0 Troponin I < 0.015 ng/ml (0-0.045) Bedside Prothrombin Time INR 0.9 (0.9-1.1) Bedside Glucose 99 mg/dl (70-90) Anion Gap 7.0 mmol/L (3-11) Est Creatinine Clear Calc Drug Dose 84.2 ml/min Estimated GFR () 112.4 Estimated GFR (Non- 97.0 BUN/Creatinine Ratio 17.5 (10-20) Calcium Level 8.6 mg/dl (8.5-10.1) Test 03/14/17 07:26 Impression Fairly mild but persistent left-sided numbness and subtle weakness beginning yesterday evening at around 8:30 with an associated headache frontal headache and nausea. These symptoms could be consistent with either a small ischemic right hemispheric stroke or possibly complex migraine in light of her history. Demyelinating disease is also possible. TEMPLATE CUTTER lupus could also be considered given her past medical history although this diagnosis is not strongly suspected. Cerebritis probably unlikely. Plan MRI of the brain with and without contrast. Continue antiplatelet therapy. However, patient should probably be transitioned to a single antiplatelet agent in the long run. Transthoracic echocardiogram. Would obtain an up-to-date lab work for lupus and other associated autoimmune diseases. Include sedimentation rate. Case discussed with hospitalist resident physician. As this patient completed an MRA of the head and neck this past fall, I do not think she needs additional angiography at this time. I will make further recommendations pending my review of the MRI.
--- NOTE | 2017-03-14 10:23 | Family Medicine Progress Note ---
Progress Note Date of Service March 14, 2017. Subjective Pt evaluation today including: conversation w/ patient, physical exam, chart review, lab review Pain: denies pain PO Intake: NPO for now Voiding: no voiding problems 61-year-old female with past medical history of SLE, completed migraines, 3 prior CVAs presents with left-sided numbness and paresthesias which started on the face and progressed to her arm and leg which started last night. She was admitted last July with a headache, left-sided weakness and pain MRI at that time was consistent with subacute ischemic infarct versus demyelinating process . Today, she complained of left-sided facial numbness but the numbness in her arm and leg had resolved. Denied any weakness, slurring of speech. She complained about vague headache but she felt that was secondary to not eating. Continued to have some blurriness in her left eye. Denied any fevers/ chills, tick bites, rashes. Denied any chest pain, palpitations, shortness of breath, dizziness or lightheadedness Constitutional: No chills, No fever Eyes: + problem reported (blurriness in left eye improved from yesterday) ENT: + problem reported (headache), No hearing loss Respiratory: No cough, No shortness of breath, No sputum, No wheezing Cardiovascular: No chest pain Abdomen: No nausea, No pain, No vomiting Female : No dysuria Neurologic: + numbness/tingling (left side of face. ), No memory loss, No paralysis, No vertigo, No weakness Psychiatric: No depression symptoms Heme: No abnormal bleeding/bruising Medications Current Inpatient Medications Medications (Trade) Dose Ordered Sig/Liane Route Start Time Stop Time Status Last Admin Dose Admin Aspirin (Ecotrin Tab) 162 mg QAM PO 03/14/17 09:00 04/13/17 08:59 Miscellaneous Information (Pharmacist Discharge Med Rec Consult) 1 ea UD PRN N/A 03/14/17 01:00 04/13/17 00:59 Heparin Sodium (Porcine) (Heparin Sq 5000 Unit/0.5ml) 5,000 unit Q8H SQ 03/14/17 06:00 04/13/17 05:59 03/14/17 06:07 5,000 UNIT Acetaminophen (Tylenol Tab) 650 mg Q4H PRN PO 03/14/17 01:00 04/13/17 00:59 Al Hydrox/Mg Hydrox/Simethicone (Maalox Max Susp) 15 ml Q4H PRN PO 03/14/17 01:00 04/13/17 00:59 Magnesium Hydroxide (Milk Of Magnesia Susp) 30 ml Q12H PRN PO 03/14/17 01:00 04/13/17 00:59 Ondansetron HCl (Zofran Inj) 4 mg Q6H PRN IV 03/14/17 01:00 04/13/17 00:59 Polyethylene (Miralax Powder Packet) 17 gm DAILY PRN PO 03/14/17 01:00 04/13/17 00:59 Fish Oil (Benedict-3 (Purified Fish Oil) Cap) 2 gm DAILY PO 03/14/17 09:00 04/13/17 08:59 Gabapentin (Neurontin Cap) 400 mg QID PO 03/14/17 09:00 04/13/17 08:59 Levothyroxine Sodium (Synthroid Tab) 50 mcg DAILYBB PO 03/14/17 06:00 04/13/17 05:59 Lorazepam (Ativan Tab) 1 mg HS PRN PO 03/14/17 01:00 04/13/17 00:59 Lorazepam (Ativan Tab) 0.5 mg DAILY PRN PO 03/14/17 01:00 04/13/17 00:59 Magnesium Oxide (Mag-Ox Tab) 400 mg DAILY PO 03/14/17 09:00 04/13/17 08:59 Potassium Chloride (Klor-Con M10) 10 meq DAILY PO 03/14/17 09:00 04/13/17 08:59 Ranitidine HCl (zANTac TAB) 150 mg BID PO 03/14/17 09:00 04/13/17 08:59 Valacyclovir HCl (Valtrex Tab) 500 mg HS PO 03/14/17 21:00 03/24/17 20:59 Venlafaxine HCl (effeXOR EXTENDED REL CAP) 150 mg QAM PO 03/14/17 09:00 04/13/17 08:59 Venlafaxine HCl (effeXOR TAB) 75 mg QPM PO 03/14/17 21:00 04/13/17 20:59 Calcium/Vitamin D (Caltrate Plus Tab) 1 tab DAILY PO 03/14/17 09:00 04/13/17 08:59 Pantoprazole Sodium (Protonix Tab) 40 mg BID PO 03/14/17 09:00 04/13/17 08:59 Clopidogrel Bisulfate (plAVix TAB) 75 mg QAM PO 03/14/17 09:00 04/13/17 08:59 Objective Vital Signs Date Time Temp Pulse Resp B/P Pulse Ox O2 Delivery O2 Flow Rate FiO2 03/14/17 07:27 36.8 64 16 157/84 95 Room Air 03/14/17 04:00 Room Air 03/14/17 03:50 62 149/90 03/14/17 03:24 36.6 62 16 173/95 97 Room Air 03/14/17 02:00 36.4 18 150/80 97 Room Air 03/14/17 01:15 64 18 98 03/14/17 01:00 153/82 03/14/17 00:45 64 16 97 03/14/17 00:37 148/57 03/14/17 00:15 66 19 03/13/17 23:45 22 03/13/17 23:15 65 19 03/13/17 23:07 98 Room Air 03/13/17 22:26 37.0 68 16 167/98 97 Room Air 03/13/17 22:21 73 03/13/17 22:17 167/98 Physical Exam General Appearance: WD/WN, no apparent distress Eyes: normal inspection ENT: normal ENT inspection, hearing grossly normal Neck: supple Respiratory/Chest: lungs clear, normal breath sounds, no respiratory distress, no accessory muscle use Cardiovascular: regular rate, rhythm Abdomen: normal bowel sounds, non tender, soft 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: 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, alert, normal mood/affect, oriented x 3, + facial droop (left sided), + sensory deficit (on left side of face) Skin: normal color, warm/dry Laboratory Results 03/14/17 07:05 Test 03/13/17 21:57 03/13/17 23:06 03/13/17 23:30 03/14/17 07:05 RDW Standard Deviation 43.5 fL (36.4-46.3) RDW Coefficient of Variation 13.1 % (11.5-14.5) White Blood Count 4.94 K/uL (4.8-10.8) Red Blood Count 4.14 M/uL (4.2-5.4) Hemoglobin 12.6 g/dL (12.0-16.0) Hematocrit 37.7 % (37-47) Mean Corpuscular Volume 91.1 fL (80-100) Mean Corpuscular Hemoglobin 30.4 pg (25-34) Mean Corpuscular Hemoglobin Concent 33.4 g/dl (32-36) Platelet Count 253 K/uL (130-400) Mean Platelet Volume 9.4 fL (7.4-10.4) Neutrophils (%) (Auto) 34.5 % Lymphocytes (%) (Auto) 51.0 % Monocytes (%) (Auto) 11.7 % Eosinophils (%) (Auto) 2.2 % Basophils (%) (Auto) 0.4 % Neutrophils # (Auto) 1.70 K/uL (1.4-6.5) Lymphocytes # (Auto) 2.52 K/uL (1.2-3.4) Monocytes # (Auto) 0.58 K/uL (0.11-0.59) Eosinophils # (Auto) 0.11 K/uL (0-0.5) Basophils # (Auto) 0.02 K/uL (0-0.2) Immature Granulocyte % (Auto) 0.2 % Immature Granulocyte # (Auto) 0.01 K/uL (0.00-0.02) Red Blood Cell Morphology Unremarkable Prothrombin Time 9.9 SECONDS (9.0-12.0) Prothromb Time International Ratio 0.9 (0.9-1.1) Activated Partial Thromboplast Time 26.3 SECONDS (21.0-31.0) Partial Thromboplastin Ratio 1.0 Troponin I < 0.015 ng/ml (0-0.045) Bedside Prothrombin Time INR 0.9 (0.9-1.1) Bedside Glucose 99 mg/dl (70-90) Anion Gap 7.0 mmol/L (3-11) Est Creatinine Clear Calc Drug Dose 84.2 ml/min Estimated GFR () 112.4 Estimated GFR (Non- 97.0 BUN/Creatinine Ratio 17.5 (10-20) Calcium Level 8.6 mg/dl (8.5-10.1) Hepatitis C Antibody Screen NEG (NEG) Test 03/14/17 07:26 03/14/17 10:05 03/14/17 10:15 Assessment and Plan 61-year-old female with past medical history of SLE, completed migraines, 3 prior CVAs presents with left-sided numbness and paresthesias which started on the face and progressed to her arm and leg which started last night. She was admitted last July with a headache, left-sided weakness and pain MRI at that time was consistent with subacute ischemic infarct versus demyelinating process . Left sided facial numbness ,CVA versus demyelination vs complex migraine -Head CT: no acute intracranial findings. - Neurology consult: Appreciate recommendations - MRI brain and MRI cervical and thoracic spine ordered - Lyme serology pending - Lupus anticoagulant, homocystinemia, beta 2 microglobulin, antiphospholipid antibody studies pending - B12 level, TSH pending - Echo ordered - Continue aspirin and Plavix for now. Will likely be d/gentry home on one antiplatelet - She is statin intolerant History of SLE: - Was last treated 2 years ago - Positive OLEKSANDR titers - Lupus anticoagulant, homocystinemia, beta 2 microglobulin, antiphospholipid antibodies pending - ESR 20 Run of Narrow complex tachycardia on monitor - asymptomatic - Continue monitoring on tele - electrolytes normal. Hypothyroidism: - Continue Synthroid Depression: -Continue Effexor DVT prophylaxis: Heparin Full code Disposition: Monitor in telemetry Resident Tracking Resident Involvement: Resident Care Provided Care Provided: Adult Hospital Medicine (room) Reviewed: Pt Seen/Exam by Me History persistent left facial numbness also complaining of headache nonsustained beats of narrow complex tachycardia on monitor Constitutional: denies: fever Cardiovascular: denies chest pain, denies palpitations Gastrointestinal/Abdominal: negative: abdominal pain General Appearance: no apparent distress Respiratory: lungs clear, no respiratory distress Cardiovascular: regular rate, rhythm 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: no motor/sensory deficits, alert, oriented x 3 Skin Characteristics: warm/dry Assessment/Plan I have reviewed the medical record and performed a history and physical examination of this patient today. I have discussed the case with Dr. Chung. The above note reflects my findings, conclusions, and recommendations.
[2017-03-14] MEDS: LEVOTHYROXINE 50 MCG TAB PO SCH (10:24)
[2017-03-14] MEDS: CALCIUM 600MG + VIT D 400 IU TAB PO SCH (10:25)
[2017-03-14] MEDS: CLOPIDOGREL BISULFATE 75 MG TAB PO SCH (10:25)
[2017-03-14] MEDS: PANTOprazole SOD 40 MG TAB PO SCH ×2 (10:25→23:30)
[2017-03-14] MEDS: OMEGA-3 (PURIFIED FISH OIL) 1 GM CAP PO SCH (10:25)
[2017-03-14] MEDS: ASPIRIN 81 MG ECTAB PO SCH (10:26)
[2017-03-14] MEDS: MAGNESIUM OXIDE 400 MG TAB PO SCH (10:26)
[2017-03-14] MEDS: POTASSIUM CHLORIDE 10 MEQ TABCR PO SCH (10:26)
[2017-03-14] MEDS: RANITIDINE HCL 150 MG TAB PO SCH ×2 (10:27→23:30)
[2017-03-14] MEDS: VENLAFAXINE HCL XR 150 MG CAPXR PO SCH (10:27)
[2017-03-14] MEDS: GABAPENTIN 400 MG CAP PO SCH ×4 (10:27→23:30)
[2017-03-14 10:43] LABS: BASO % 0.6 %; BASO ABS # 0.03 K/uL (0-0.2); COMPLETE YES; EOS % 1.6 %; HEMATOCRIT 39.7 % (37-47); IG% 0.2 %; LYMPH % 31.8 %; LYMPH ABS # 1.55 K/uL (1.2-3.4); MEAN CELL VOLUME 89.8 fL (80-100); MEAN CORPUSCULAR HEMOGLOBIN 29.4 pg (25-34); MEAN CORPUSCULAR HGB CONC 32.7 g/dl (32-36); MEAN PLATELET VOLUME 9.2 fL (7.4-10.4); MONO % 8.6 %; NEUT % 57.2 %; PLATELET COUNT 212 K/uL (130-400); RED BLOOD COUNT 4.42 M/uL (4.2-5.4); WHITE BLOOD COUNT 4.88 K/uL (4.8-10.8)
--- NOTE | 2017-03-14 12:11 | ECHOCARDIOGRAM REPORT ---
*NOTICE TO RECEIVING [employer] This information is strictly Confidential and protected under [place] law. [place] law prohibits you from making any further disclosure of this information unless further disclosure is expressly permitted by the written consent of the person to whom it pertains or is authorized by law. A general authorization for the release of medical or other information is not sufficient for this purpose. Hospital accepts no responsibility if the information is made available to any other person, INCLUDING THE PATIENT. Interpretation Summary * Name: JUAN LUIS GUEVARA Study Date: 03/14/2017 10:24 AM BP: 157/84 mmHg * Patient Location: .2T\S\E222\S\1 HR: 67 * : 1955 (M/d/yyyy) Gender: Female Height: 63 in * Age: 61 yrs Ethnicity: CA Weight: 141 lb * Ordering Physician: Maryse Chung * Referring Physician: Self, Referred * Performed By: Margy Llanos, [facility] * * Reason For Study: R/O CVA * BSA: 1.7 m2 * -- Conclusions -- * 1. Normal LV size. Borderline concentric LVH. * 2. Normal LV systolic function. LVEF 60-65%. No regional wall motion abnormalities. * 3. Normal RV size and function. * 4. Mild aortic regurgitation. Trace mitral regurgitation. * 5. Negative saline contrast study for interatrial shunt. * 6. Compared with prior study on 09/21/2011: No significant changes. Procedure Details * A complete two-dimensional transthoracic echocardiogram was performed (2D, M-mode, Doppler and color flow Doppler). * A saline contrast injection was performed to assess for cardiac shunting. * The injection was performed through an intravenous line in the right arm. * The attending nurse who injected the saline contrast was RICARDO LEAL CPL, RN. * A total of 20 cc of agitated saline was given. Left Ventricle * The left ventricle is grossly normal size. * There is borderline concentric left ventricular hypertrophy. * Ejection Fraction = 60-65%. * No regional wall motion abnormalities noted. Right Ventricle * The right ventricle is grossly normal size. * The right ventricular systolic function is normal as assessed by tricuspid annular plane systolic excursion (TAPSE) (normal >1.5 cm). Atria * The left atrial size is normal. * Borderline right atrial enlargement. * Injection of contrast documented no interatrial shunt. Mitral Valve * The mitral valve is grossly normal. * There is no mitral valve stenosis. * There is mild mitral regurgitation. Tricuspid Valve * The tricuspid valve is not well visualized, but is grossly normal. * There is no tricuspid stenosis. * Significant tricuspid regurgitation is absent. Aortic Valve * The aortic valve opens well. * The aortic valve is trileaflet. * No hemodynamically significant valvular aortic stenosis. * Mild aortic regurgitation. Pulmonic Valve * The pulmonary valve is inadequately visualized, but the Doppler data is adequate for interpretation. * Pulmonic stenosis is absent. * There is no significant pulmonary regurgitation. Great Vessels * The aortic root and proximal ascending aorta are normal sized. * No Doppler or imaging evidence of an aortic coarctation. Pericardium/Pleural * There is no pericardial effusion. Great Vessels * There is no evidence of pulmonary hypertension. The PA systolic pressure is less than 36 mmHg. * Normal inferior vena cava size and collapsability with sniff indicates a normal right atrial pressure of 3 mmHg MMode 2D Measurements and Calculations IVSd 1.2 cm IVSs 1.1 cm LVIDd 4.2 cm LVIDs 3.0 cm LVPWd 0.95 cm LVPWs 1.1 cm IVS/LVPW 1.2 FS 29.5 % EDV(Teich) 80.8 ml ESV(Teich) 34.8 ml EF(Teich) 56.9 % EDV(cubed) 76.7 ml ESV(cubed) 26.8 ml EF(cubed) 65.0 % % IVS thick -3.87 % % LVPW thick 14.1 % LV mass(C)d 150.5 grams LV mass(C)dI 90.3 grams/m\S\2 LV mass(C)s 94.6 grams LV mass(C)sI 56.8 grams/m\S\2 SV(Teich) 45.9 ml SI(Teich) 27.5 ml/m\S\2 SV(cubed) 49.9 ml SI(cubed) 29.9 ml/m\S\2 Ao root diam 3.3 cm Ao root area 8.5 cm\S\2 ACS 1.9 cm LA dimension 2.5 cm LA/Ao 0.75 LVOT diam 1.9 cm LVOT area 2.9 cm\S\2 Doppler Measurements and Calculations MV E max ashley 62.0 cm/sec MV A max ashley 65.8 cm/sec MV E/A 0.94 MV P1/2t max ashley 77.6 cm/sec MV P1/2t 106.8 msec MVA(P1/2t) 2.1 cm\S\2 MV dec slope 213.0 cm/sec\S\2 MV dec time 0.38 sec Ao V2 max 138.7 cm/sec Ao max PG 7.7 mmHg Ao max PG (full) 1.8 mmHg CHRISTEL(V,A) 2.6 cm\S\2 CHRISTEL(V,D) 2.6 cm\S\2 AI max ashley 546.1 cm/sec AI max PG 119.3 mmHg AI dec slope 198.7 cm/sec\S\2 AI P1/2t 805.2 msec LV V1 max PG 5.9 mmHg LV V1 max 121.3 cm/sec MR max ashley 590.7 cm/sec MR max PG 139.6 mmHg
[2017-03-14] MEDS: LORAZEPAM 0.5 MG TAB PO PRN ×2 (13:37→18:03)
[2017-03-14] MEDS: ACETAMINOPHEN 325 MG TAB PO PRN (13:37)
[2017-03-14 15:32] LABS: LYME DISEASE AB IGG NEG (NEG); LYME DISEASE AB IGM NEG (NEG)
[2017-03-14] MEDS ORDERED: KETOROLAC TROMETHAMINE 30 MG/ML VIAL IV STA (16:20)
[2017-03-14] MEDS: ONDANSETRON INJ 2 MG/ML 2 ML VIAL IV PRN (18:02)
--- NOTE | 2017-03-14 21:18 | DIAGNOSTIC IMAGING REPORT ---
ORBIT RADIOGRAPHS 3 VIEWS HISTORY: pre-MRI screening. COMPARISON: None. FINDINGS: There are no radiopaque foreign bodies identified within the orbits. IMPRESSION: No radiopaque foreign bodies identified within the orbits. Electronically signed by: Nathaniel Hamilton M.D. 03/14/2017 9:16 PM Dictated Date/Time: 03/14/2017 9:15 PM
[2017-03-14] MEDS ORDERED: GADAVIST IV PRN (23:00)
[2017-03-15] VITALS (15 sets, daily range): BP systolic 124–165; BP diastolic 74–96; PULSE 55–73; TEMP 36.5–36.8; O2SAT 93–100
[2017-03-15] MEDS: VENLAFAXINE HCL 50 MG TAB PO SCH ×2 (00:07→20:56)
[2017-03-15] MEDS: LEVOTHYROXINE 50 MCG TAB PO SCH (06:15)
[2017-03-15] MEDS: HEPARIN SOD 5000 UNIT/0.5 ML CARP SQ SCH ×3 (06:16→21:00)
[2017-03-15 06:35] LABS: BASO % 1.1 %; BASO ABS # 0.05 K/uL (0-0.2); COMPLETE YES; IG% 0.2 %; LYMPH % 36.4 %; LYMPH ABS # 1.64 K/uL (1.2-3.4); MEAN CELL VOLUME 89.6 fL (80-100); MEAN CORPUSCULAR HEMOGLOBIN 29.6 pg (25-34); MEAN CORPUSCULAR HGB CONC 33.1 g/dl (32-36); MEAN PLATELET VOLUME 8.9 fL (7.4-10.4); MONO % 11.3 %; PLATELET COUNT 230 K/uL (130-400); RED BLOOD COUNT 4.02 M/uL (4.2-5.4)
--- NOTE | 2017-03-15 06:42 | DIAGNOSTIC IMAGING REPORT ---
MRI CERVICAL SPINE COMBO CLINICAL HISTORY: Numbness in the left body and face. TECHNIQUE: Sagittal and axial T1, T2 and STIR images were obtained. Imaging was performed before and after the administration of 6 cc of intravenous Gadavist COMPARISON STUDY: No previous studies for comparison. There are no suspicious areas of marrow replacement. No intrinsic cervical cord lesions are visualized. C2-3: There is no evidence of disc bulge or focal herniation. There is no spinal or foraminal stenosis. C3-4: There is no evidence of disc bulge or focal herniation. There is no spinal or foraminal stenosis. C4-5: There are no disc bulges or focal herniations. There is no spinal or foraminal stenosis. C5-6 :There are no disc bulges or focal herniations. There is no spinal or foraminal stenosis. C6-7: There is no evidence of disc bulge or focal herniation. There is no evidence of spinal or foraminal stenosis. C7-T1: There is no evidence of disc bulge or focal herniation. There is no evidence of spinal or foraminal stenosis. Post gadolinium images reveal no pathologic enhancement. IMPRESSION:Normal MRI of the cervical spine. Electronically signed by: Benny Rosales M.D. 03/15/2017 6:41 AM Dictated Date/Time: 03/15/2017 6:38 AM
[2017-03-15 07:06] LABS: BUN/CREATININE RATIO 17.7 (10-20); CALCIUM 8.8 mg/dl (8.5-10.1); CREATININE 0.67 mg/dl (0.60-1.20); POTASSIUM 3.9 mmol/L (3.5-5.1)
--- NOTE | 2017-03-15 07:09 | DIAGNOSTIC IMAGING REPORT ---
Brain MRI WITH AND WITHOUT CONTRAST HISTORY: Mental status change with and without contrast - eval for CVA vs demyelination TECHNIQUE: Multiplanar multisequence MRI of the brain was performed both before and after the intravenous administration of contrast. COMPARISON STUDY: 07/31/2016 FINDINGS: Multiple foci of increased signal within the periventricular deep white matter regions. This is in general is similar as compared to the prior study. There are no new or interval findings. Produces described 7 mm focus of signal within the right anterior parietal region is not identified. There are no new or interval plaques. There is no abnormal postcontrast enhancement. IMPRESSION: Stable MRI of the brain compared to the prior exam with no major change. Electronically signed by: Adithya George M.D. 03/15/2017 7:08 AM Dictated Date/Time: 03/15/2017 6:58 AM
--- NOTE | 2017-03-15 07:11 | DIAGNOSTIC IMAGING REPORT ---
THORACIC SPINE MRI WITH AND WITHOUT CONTRAST HISTORY: Mental status change CVA. ?demyelinating Dz. TECHNIQUE: Multiplanar multisequence MRI of the thoracic spine was performed both before and after the intravenous administration of contrast. COMPARISON: None. FINDINGS: Alignment and curvature are intact. No fracture or subluxation. No significant central canal or neural foraminal narrowing. IMPRESSION: Negative study Electronically signed by: Adithya George M.D. 03/15/2017 7:10 AM Dictated Date/Time: 03/15/2017 7:08 AM
[2017-03-15] MEDS: VENLAFAXINE HCL XR 150 MG CAPXR PO SCH (07:52)
[2017-03-15] MEDS: GABAPENTIN 400 MG CAP PO SCH ×4 (07:52→20:57)
[2017-03-15] MEDS: CALCIUM 600MG + VIT D 400 IU TAB PO SCH (07:53)
[2017-03-15] MEDS: OMEGA-3 (PURIFIED FISH OIL) 1 GM CAP PO SCH (07:53)
[2017-03-15] MEDS: POTASSIUM CHLORIDE 10 MEQ TABCR PO SCH (07:53)
[2017-03-15] MEDS: MAGNESIUM OXIDE 400 MG TAB PO SCH (07:54)
[2017-03-15] MEDS: ASPIRIN 81 MG ECTAB PO SCH (07:54)
[2017-03-15] MEDS: CLOPIDOGREL BISULFATE 75 MG TAB PO SCH (07:54)
[2017-03-15] MEDS: PANTOprazole SOD 40 MG TAB PO SCH ×2 (07:54→20:56)
[2017-03-15] MEDS: RANITIDINE HCL 150 MG TAB PO SCH ×2 (07:54→20:57)
[2017-03-15] MEDS: ACETAMINOPHEN 325 MG TAB PO PRN ×3 (08:10→23:58)
--- NOTE | 2017-03-15 10:55 | Neurology Progress Notes ---
Neurology Progress Note Date of Service March 15, 2017. Subjective Follow-up for numbness and weakness The patient reports modest improvement in her left-sided numbness and weakness compared with yesterday. She did experience a significant frontal headache with associated nausea and light sensitivity yesterday afternoon as well. The patient has had this constellation of symptoms before, consistent with her diagnosis of complex migraine. The patient completed the requested brain MRI yesterday. I reviewed the images as well as the radiologist's interpretation of this test. There is evidence of extensive, confluent and patchy increased signal on T2 and FLAIR sequences is unchanged from her previous MRI done last year. The finding is nonspecific. Differential diagnosis includes demyelinating disease, chronic small vessel ischemic change, sequelae of complex migraine. C-spine and T-spine MRI is also completed, no evidence of spinal cord demyelination or significant pathology. Objective Date Time Temp Pulse Resp B/P Pulse Ox O2 Delivery O2 Flow Rate FiO2 03/15/17 08:00 99 Room Air 03/15/17 07:30 36.8 66 18 124/74 99 Room Air 03/15/17 04:00 Room Air 03/15/17 03:10 36.7 66 16 135/83 98 Room Air 03/14/17 23:59 Room Air 03/14/17 23:53 36.4 62 16 130/80 97 Room Air 03/14/17 20:00 Room Air 03/14/17 19:06 36.8 67 18 149/82 93 Room Air 03/14/17 16:00 98 Room Air 03/14/17 15:38 36.6 75 16 153/86 98 Room Air 03/14/17 12:06 36.8 65 18 155/89 100 Room Air 03/14/17 12:00 97 Room Air Last 24 Hours Test 03/14/17 12:49 03/15/17 06:11 Erythrocyte Sedimentation Rate 20 mm/hr Vitamin B12 Level 554 pg/mL Thyroid Stimulating Hormone (TSH) 1.400 uIu/ml Lyme Disease IgG Antibody NEG Lyme Disease IgM Antibody NEG White Blood Count 4.50 K/uL Red Blood Count 4.02 M/uL Hemoglobin 11.9 g/dL Hematocrit 36.0 % Mean Corpuscular Volume 89.6 fL Mean Corpuscular Hemoglobin 29.6 pg Mean Corpuscular Hemoglobin Concent 33.1 g/dl Platelet Count 230 K/uL Mean Platelet Volume 8.9 fL Neutrophils (%) (Auto) 47.0 % Lymphocytes (%) (Auto) 36.4 % Monocytes (%) (Auto) 11.3 % Eosinophils (%) (Auto) 4.0 % Basophils (%) (Auto) 1.1 % Neutrophils # (Auto) 2.11 K/uL Lymphocytes # (Auto) 1.64 K/uL Monocytes # (Auto) 0.51 K/uL Eosinophils # (Auto) 0.18 K/uL Basophils # (Auto) 0.05 K/uL RDW Standard Deviation 42.4 fL RDW Coefficient of Variation 12.9 % Immature Granulocyte % (Auto) 0.2 % Immature Granulocyte # (Auto) 0.01 K/uL Sodium Level 140 mmol/L Potassium Level 3.9 mmol/L Chloride Level 107 mmol/L Carbon Dioxide Level 26 mmol/L Anion Gap 7.0 mmol/L Blood Urea Nitrogen 12 mg/dl Creatinine 0.67 mg/dl Est Creatinine Clear Calc Drug Dose 80.4 ml/min Estimated GFR () 110.7 Estimated GFR (Non- 95.5 BUN/Creatinine Ratio 17.7 Random Glucose 99 mg/dl Calcium Level 8.8 mg/dl Exam: The patient is a well-appearing, well-nourished female, no acute distress. She is alert and oriented to person place and time. Attention and concentration normal. She is able to name objects and repeat phrases. She reads text without difficulty. Recent and remote memory intact. Vocabulary and fund of knowledge normal. Visual leigh full to confrontation. Visual acuity normal. Pupils equal round reactive to light and accommodation. Eye movements normal. No nystagmus. Facial sensation intact. There is no facial droop or facial weakness observed. Shoulder shrug and hearing intact bilaterally. Sensation intact to light touch, vibration, and temperature for all 4 limbs. There is no pronator drift with outstretched arms. No dysmetria or ataxia with finger to nose or heel to saucedo. No difficulty with rapid alternating movements. Strength normal for all 4 limbs. No hemiparesis. Muscle tone normal. No abnormal movements. Current Inpatient Medications Medications (Trade) Dose Ordered Sig/Liane Route Start Time Stop Time Status Last Admin Dose Admin Aspirin (Ecotrin Tab) 162 mg QAM PO 03/14/17 09:00 04/13/17 08:59 03/15/17 07:54 162 MG Heparin Sodium (Porcine) (Heparin Sq 5000 Unit/0.5ml) 5,000 unit Q8H SQ 03/14/17 06:00 04/13/17 05:59 03/15/17 06:16 5,000 UNIT Acetaminophen (Tylenol Tab) 650 mg Q4H PRN PO 03/14/17 01:00 04/13/17 00:59 03/15/17 08:10 650 MG Al Hydrox/Mg Hydrox/Simethicone (Maalox Max Susp) 15 ml Q4H PRN PO 03/14/17 01:00 04/13/17 00:59 Magnesium Hydroxide (Milk Of Magnesia Susp) 30 ml Q12H PRN PO 03/14/17 01:00 04/13/17 00:59 Ondansetron HCl (Zofran Inj) 4 mg Q6H PRN IV 03/14/17 01:00 04/13/17 00:59 03/14/17 18:02 4 MG Polyethylene (Miralax Powder Packet) 17 gm DAILY PRN PO 03/14/17 01:00 04/13/17 00:59 Fish Oil ([place]-3 (Purified Fish Oil) Cap) 2 gm DAILY PO 03/14/17 09:00 04/13/17 08:59 03/15/17 07:53 2 GM Gabapentin (Neurontin Cap) 400 mg QID PO 03/14/17 09:00 04/13/17 08:59 03/15/17 07:52 400 MG Levothyroxine Sodium (Synthroid Tab) 50 mcg DAILYBB PO 03/14/17 06:00 04/13/17 05:59 03/15/17 06:15 50 MCG Lorazepam (Ativan Tab) 1 mg HS PRN PO 03/14/17 01:00 04/13/17 00:59 03/14/17 23:37 1 MG Lorazepam (Ativan Tab) 0.5 mg DAILY PRN PO 03/14/17 01:00 04/13/17 00:59 03/14/17 18:03 0.5 MG Magnesium Oxide (Mag-Ox Tab) 400 mg DAILY PO 03/14/17 09:00 04/13/17 08:59 03/15/17 07:54 400 MG Potassium Chloride (Klor-Con M10) 10 meq DAILY PO 03/14/17 09:00 04/13/17 08:59 03/15/17 07:53 10 MEQ Ranitidine HCl (zANTac TAB) 150 mg BID PO 03/14/17 09:00 04/13/17 08:59 03/15/17 07:54 150 MG Valacyclovir HCl (Valtrex Tab) 500 mg HS PO 03/14/17 21:00 03/24/17 20:59 03/14/17 23:30 500 MG Venlafaxine HCl (effeXOR EXTENDED REL CAP) 150 mg QAM PO 03/14/17 09:00 04/13/17 08:59 03/15/17 07:52 150 MG Venlafaxine HCl (effeXOR TAB) 75 mg QPM PO 03/14/17 21:00 04/13/17 20:59 03/15/17 00:07 75 MG Calcium/Vitamin D (Caltrate Plus Tab) 1 tab DAILY PO 03/14/17 09:00 04/13/17 08:59 03/15/17 07:53 1 TAB Pantoprazole Sodium (Protonix Tab) 40 mg BID PO 03/14/17 09:00 04/13/17 08:59 03/15/17 07:54 40 MG Clopidogrel Bisulfate (plAVix TAB) 75 mg QAM PO 03/14/17 09:00 04/13/17 08:59 03/15/17 07:54 75 MG Miscellaneous Information (Pharmacist Discharge Med Rec Consult) 1 ea UD PRN N/A 03/14/17 10:15 04/13/17 10:14 Gadobutrol (Gadavist) 6 mmol UD PRN IV 03/14/17 23:00 03/18/17 22:59 Impression This patient's left-sided numbness and weakness seems to be largely resolved this morning. I do not find any focal deficits on this morning's neurological examination. Patient's recently completed brain MRI is potentially consistent with an underlying demyelinating disease. Recent lab work not suggestive of vasculitis. This patient does have a history of lupus, however. Presentation not suggestive of cerebritis. The observed white matter changes could also be consistent with patient's history of complex migraine phenomena. Plan At this point, I would recommend a lumbar puncture with MS profile to further evaluate possible demyelinating disease. I discussed this recommendation with the patient and she is agreeable to proceed. My preference would be for this procedure to be completed in radiology. This patient may also benefit from a trial of verapamil for treatment of complex migraine. I would typically start with verapamil SR 120 mg at bedtime. Monitor for symptomatic bradycardia or other side effects.
--- NOTE | 2017-03-15 14:51 | DIAGNOSTIC IMAGING REPORT ---
FLUOROSCOPICALLY GUIDED DIAGNOSTIC LUMBAR PUNCTURE CLINICAL HISTORY: demyelinating disease COMPARISON STUDY: No previous studies for comparison. FINDINGS: A timeout was performed. The risks the procedure were explained the patient and informed consent was obtained. The patient was prepped and draped in sterile fashion. The skin was anesthetized with 1% lidocaine. Under fluoroscopic guidance, lumbar puncture was performed the L4-5 level with a 22-gauge spinal needle. Approximate 6 cc of clear CSF was removed under gravity drip and into 4 tubes. The fluid was sent for laboratory analysis as specified by the referring clinician. There were no immediate locations. IMPRESSION: Successful fluoroscopically guided diagnostic lumbar puncture performed at the L4-5 level. Electronically signed by: Benny Rosales M.D. 03/15/2017 2:50 PM Dictated Date/Time: 03/15/2017 2:48 PM
[2017-03-15 15:03] LABS: CSF CHEMISTRY TUBE # #1
[2017-03-15] MEDS: LORAZEPAM 0.5 MG TAB PO PRN ×2 (15:24→19:36)
[2017-03-15 15:29] LABS: CSF APPEARANCE CLEAR; CSF COLOR COLORLESS; CSF XANTHOCHROMIC NO XANTHOCHROMIA
[2017-03-15 15:36] LABS: CSF TOTAL PROTEIN 56.8 mg/dl (15.0-45.0)
--- NOTE | 2017-03-15 18:31 | Family Medicine Progress Note ---
Progress Note Date of Service March 15, 2017. Subjective Pt evaluation today including: conversation w/ patient, physical exam, chart review, lab review Pain: has a mild headache PO Intake: good Voiding: no voiding problems 61-year-old female with past medical history of SLE, completed migraines, 3 prior CVAs presents with left-sided numbness and paresthesias which started on the face and progressed to her arm and leg which started last night. She was admitted last July with a headache, left-sided weakness and pain MRI at that time was consistent with subacute ischemic infarct versus demyelinating process . Yesterday afternoon she complained about a headache which was a 10 on 10 in severity which had improved after Toradol. Today she continues to complain of a mild headache with nausea. Numbness on the left side of face is improved and stated that she developed numbness in her left arm while in the MRI yesterday. Blurriness in her left eye is also improved. Denies any weakness, slurring of speech, chest pain, palpitations, fevers/chills Constitutional: No chills, No fever Eyes: + problem reported (blurriness in her left eye improved) ENT: No hearing loss Respiratory: No cough, No sputum Cardiovascular: No chest pain Abdomen: No nausea, No pain, No vomiting Female : No dysuria Neurologic: + numbness/tingling (left face), No memory loss Psychiatric: No depression symptoms Heme: No abnormal bleeding/bruising Skin: No rash Medications Current Inpatient Medications Medications (Trade) Dose Ordered Sig/Liane Route Start Time Stop Time Status Last Admin Dose Admin Aspirin (Ecotrin Tab) 162 mg QAM PO 03/14/17 09:00 04/13/17 08:59 03/15/17 07:54 162 MG Heparin Sodium (Porcine) (Heparin Sq 5000 Unit/0.5ml) 5,000 unit Q8H SQ 03/14/17 06:00 04/13/17 05:59 03/15/17 06:16 5,000 UNIT Acetaminophen (Tylenol Tab) 650 mg Q4H PRN PO 03/14/17 01:00 04/13/17 00:59 03/15/17 15:25 650 MG Al Hydrox/Mg Hydrox/Simethicone (Maalox Max Susp) 15 ml Q4H PRN PO 03/14/17 01:00 04/13/17 00:59 Magnesium Hydroxide (Milk Of Magnesia Susp) 30 ml Q12H PRN PO 03/14/17 01:00 04/13/17 00:59 Ondansetron HCl (Zofran Inj) 4 mg Q6H PRN IV 03/14/17 01:00 04/13/17 00:59 03/14/17 18:02 4 MG Polyethylene (Miralax Powder Packet) 17 gm DAILY PRN PO 03/14/17 01:00 04/13/17 00:59 Fish Oil ([place]-3 (Purified Fish Oil) Cap) 2 gm DAILY PO 03/14/17 09:00 04/13/17 08:59 03/15/17 07:53 2 GM Gabapentin (Neurontin Cap) 400 mg QID PO 03/14/17 09:00 04/13/17 08:59 03/15/17 15:26 400 MG Levothyroxine Sodium (Synthroid Tab) 50 mcg DAILYBB PO 03/14/17 06:00 04/13/17 05:59 03/15/17 06:15 50 MCG Lorazepam (Ativan Tab) 1 mg HS PRN PO 03/14/17 01:00 04/13/17 00:59 03/14/17 23:37 1 MG Lorazepam (Ativan Tab) 0.5 mg DAILY PRN PO 03/14/17 01:00 04/13/17 00:59 03/15/17 15:24 0.5 MG Magnesium Oxide (Mag-Ox Tab) 400 mg DAILY PO 03/14/17 09:00 04/13/17 08:59 03/15/17 07:54 400 MG Potassium Chloride (Klor-Con M10) 10 meq DAILY PO 03/14/17 09:00 04/13/17 08:59 03/15/17 07:53 10 MEQ Ranitidine HCl (zANTac TAB) 150 mg BID PO 03/14/17 09:00 04/13/17 08:59 03/15/17 07:54 150 MG Valacyclovir HCl (Valtrex Tab) 500 mg HS PO 03/14/17 21:00 03/24/17 20:59 03/14/17 23:30 500 MG Venlafaxine HCl (effeXOR EXTENDED REL CAP) 150 mg QAM PO 03/14/17 09:00 04/13/17 08:59 03/15/17 07:52 150 MG Venlafaxine HCl (effeXOR TAB) 75 mg QPM PO 03/14/17 21:00 04/13/17 20:59 03/15/17 00:07 75 MG Calcium/Vitamin D (Caltrate Plus Tab) 1 tab DAILY PO 03/14/17 09:00 04/13/17 08:59 03/15/17 07:53 1 TAB Pantoprazole Sodium (Protonix Tab) 40 mg BID PO 03/14/17 09:00 04/13/17 08:59 03/15/17 07:54 40 MG Clopidogrel Bisulfate (plAVix TAB) 75 mg QAM PO 03/14/17 09:00 04/13/17 08:59 03/15/17 07:54 75 MG Miscellaneous Information (Pharmacist Discharge Med Rec Consult) 1 ea UD PRN N/A 03/14/17 10:15 04/13/17 10:14 Gadobutrol (Gadavist) 6 mmol UD PRN IV 03/14/17 23:00 03/18/17 22:59 Objective Vital Signs Date Time Temp Pulse Resp B/P Pulse Ox O2 Delivery O2 Flow Rate FiO2 03/15/17 15:39 36.6 67 18 165/96 97 Room Air 03/15/17 14:57 36.6 66 18 149/92 97 Room Air 03/15/17 12:00 99 Room Air 03/15/17 11:19 70 100 03/15/17 11:09 36.6 70 18 135/85 100 Room Air 03/15/17 08:00 99 Room Air 03/15/17 07:30 36.8 66 18 124/74 99 Room Air 03/15/17 04:00 Room Air 03/15/17 03:10 36.7 66 16 135/83 98 Room Air 03/14/17 23:59 Room Air 03/14/17 23:53 36.4 62 16 130/80 97 Room Air 03/14/17 20:00 Room Air 03/14/17 19:06 36.8 67 18 149/82 93 Room Air Physical Exam General Appearance: WD/WN, no apparent distress Eyes: normal inspection ENT: normal ENT inspection, hearing grossly normal Neck: supple Respiratory/Chest: chest non-tender, lungs clear, normal breath sounds, no respiratory distress, no accessory muscle use Cardiovascular: regular rate, rhythm Abdomen: normal bowel sounds, non tender, soft Extremities: normal range of motion 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: team coordinator II-XII nml as tested, alert, normal mood/affect, oriented x 3, + sensory deficit (left side of face) Skin: normal color Laboratory Results 03/15/17 06:11 Red Blood Count 4.02, Mean Corpuscular Volume 89.6, Mean Corpuscular Hemoglobin 29.6, Mean Corpuscular Hemoglobin Concent 33.1, Mean Platelet Volume 8.9, Neutrophils (%) (Auto) 47.0, Lymphocytes (%) (Auto) 36.4, Monocytes (%) (Auto) 11.3, Eosinophils (%) (Auto) 4.0, Basophils (%) (Auto) 1.1, Neutrophils # (Auto ) 2.11, Lymphocytes # (Auto) 1.64, Monocytes # (Auto) 0.51, Eosinophils # (Auto ) 0.18, Basophils # (Auto) 0.05 03/15/17 06:11 03/15/17 15:13 Test 03/15/17 06:11 03/15/17 14:32 White Blood Count 4.50 K/uL (4.8-10.8) Red Blood Count 4.02 M/uL (4.2-5.4) Hemoglobin 11.9 g/dL (12.0-16.0) Hematocrit 36.0 % (37-47) Mean Corpuscular Volume 89.6 fL (80-100) Mean Corpuscular Hemoglobin 29.6 pg (25-34) Mean Corpuscular Hemoglobin Concent 33.1 g/dl (32-36) Platelet Count 230 K/uL (130-400) Mean Platelet Volume 8.9 fL (7.4-10.4) Neutrophils (%) (Auto) 47.0 % Lymphocytes (%) (Auto) 36.4 % Monocytes (%) (Auto) 11.3 % Eosinophils (%) (Auto) 4.0 % Basophils (%) (Auto) 1.1 % Neutrophils # (Auto) 2.11 K/uL (1.4-6.5) Lymphocytes # (Auto) 1.64 K/uL (1.2-3.4) Monocytes # (Auto) 0.51 K/uL (0.11-0.59) Eosinophils # (Auto) 0.18 K/uL (0-0.5) Basophils # (Auto) 0.05 K/uL (0-0.2) RDW Standard Deviation 42.4 fL (36.4-46.3) RDW Coefficient of Variation 12.9 % (11.5-14.5) Immature Granulocyte % (Auto) 0.2 % Immature Granulocyte # (Auto) 0.01 K/uL (0.00-0.02) Anion Gap 7.0 mmol/L (3-11) Est Creatinine Clear Calc Drug Dose 80.4 ml/min Estimated GFR () 110.7 Estimated GFR (Non- 95.5 BUN/Creatinine Ratio 17.7 (10-20) Calcium Level 8.8 mg/dl (8.5-10.1) CSF Color COLORLESS CSF Appearance CLEAR CSF WBC 0 /uL (0-5) CSF RBC 0 /uL (0) CSF Xanthrochromic NO XANTHOCHROMIA CSF Cell Count Tube # 3 CSF Chemistry Tube # #1 CSF Glucose 51 mg/dl (40-70) CSF Total Protein 56.8 mg/dl (15.0-45.0) Date/Time Source Procedure Growth Status 03/15/17 14:32 Cerebral Spinal Fluid Cryptococcal Antigen - Final NO CRYPTOCOCCAL ANTIGEN DETECTED Complete Assessment and Plan 61-year-old female with past medical history of SLE, complicated migraines, 3 prior CVAs presents with left-sided numbness and paresthesias which started on the face and progressed to her arm and leg which started last night. She was admitted last July with a headache, left-sided weakness and pain MRI at that time was consistent with subacute ischemic infarct versus demyelinating process . Left sided facial numbness ,CVA versus demyelination vs complex migraine -Head CT: no acute intracranial findings. - Neurology consult: Appreciate recommendations - MRI brain : confluent and patchy increased signal on T2 and FLAIR sequences is unchanged from her previous MRI done last year. The finding is nonspecific. - MRI cervical and thoracic spine: unremarkable - lyme serology negative - Lupus anticoagulant, homocystinemia, beta 2 microglobulin, antiphospholipid antibody studies pending - B12 level, TSH within normal limits - Echo ordered: * 1. Normal LV size. Borderline concentric LVH. * 2. Normal LV systolic function. LVEF 60-65%. No regional wall motion abnormalities. * 3. Normal RV size and function. * 4. Mild aortic regurgitation. Trace mitral regurgitation. * 5. Negative saline contrast study for interatrial shunt. - Continue aspirin and Plavix for now. Will likely be d/gentry home on one antiplatelet - She is statin intolerant Lumbar puncture under fluoroscopy done today- CSF studies pending - Verapamil 120 mg at bedtime ordered History of SLE: - Was last treated 2 years ago - Positive OLEKSANDR titers - Lupus anticoagulant, homocystinemia, beta 2 microglobulin, antiphospholipid antibodies pending - ESR 20 Run of Narrow complex tachycardia on monitor - asymptomatic - Continue monitoring on tele - electrolytes normal. Hypothyroidism: - Continue Synthroid Depression: -Continue Effexor DVT prophylaxis: Heparin Full code Disposition: Monitor in telemetry Resident Tracking Resident Involvement: Resident Care Provided Care Provided: Adult Hospital Medicine Reviewed: Pt Seen/Exam by Me History still having headache. left facial numbness still present Constitutional: denies: fever Respiratory: negative: short of breath Cardiovascular: denies chest pain Neurological/Psych: positive: headache General Appearance: no apparent distress Respiratory: no respiratory distress Cardiovascular: regular rate, rhythm 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: no motor/sensory deficits, alert, oriented x 3 Skin Characteristics: warm/dry Assessment/Plan I have reviewed the medical record and performed a history and physical examination of this patient today. I have discussed the case with Dr. Chung. The above note reflects my findings, conclusions, and recommendations.
[2017-03-15] MEDS: VERAPAMIL HCL 120 MG TABCR PO SCH (20:55)
[2017-03-16 03:21] VITALS: BP 119/74; PULSE 70; TEMP 36.7; O2SAT 96
[2017-03-16] MEDS: ACETAMINOPHEN 325 MG TAB PO PRN ×2 (05:26→18:44)
[2017-03-16] MEDS: LEVOTHYROXINE 50 MCG TAB PO SCH (05:26)
[2017-03-16] MEDS: HEPARIN SOD 5000 UNIT/0.5 ML CARP SQ SCH ×3 (05:27→20:55)
[2017-03-16 07:37] LABS: BASO % 0.7 %; BASO ABS # 0.03 K/uL (0-0.2); COMPLETE YES; EOS % 4.1 %; HEMATOCRIT 35.1 % (37-47); IG% 0.2 %; LYMPH % 41.7 %; LYMPH ABS # 1.72 K/uL (1.2-3.4); MEAN CELL VOLUME 88.9 fL (80-100); MEAN CORPUSCULAR HEMOGLOBIN 29.9 pg (25-34); MEAN CORPUSCULAR HGB CONC 33.6 g/dl (32-36); MEAN PLATELET VOLUME 9.1 fL (7.4-10.4); MONO % 9.7 %; NEUT % 43.6 %; PLATELET COUNT 224 K/uL (130-400); RED BLOOD COUNT 3.95 M/uL (4.2-5.4); WHITE BLOOD COUNT 4.12 K/uL (4.8-10.8)
[2017-03-16] MEDS: VENLAFAXINE HCL XR 150 MG CAPXR PO SCH (07:46)
[2017-03-16] MEDS: RANITIDINE HCL 150 MG TAB PO SCH ×2 (07:46→20:52)
[2017-03-16] MEDS: CALCIUM 600MG + VIT D 400 IU TAB PO SCH (07:46)
[2017-03-16] MEDS: PANTOprazole SOD 40 MG TAB PO SCH ×2 (07:47→20:53)
[2017-03-16] MEDS: POTASSIUM CHLORIDE 10 MEQ TABCR PO SCH (07:47)
[2017-03-16] MEDS: OMEGA-3 (PURIFIED FISH OIL) 1 GM CAP PO SCH (07:47)
[2017-03-16] MEDS: GABAPENTIN 400 MG CAP PO SCH ×4 (07:48→20:53)
[2017-03-16] MEDS: CLOPIDOGREL BISULFATE 75 MG TAB PO SCH (07:48)
[2017-03-16] MEDS: MAGNESIUM OXIDE 400 MG TAB PO SCH (07:48)
[2017-03-16] MEDS: ASPIRIN 81 MG ECTAB PO SCH (07:48)
[2017-03-16 07:54] VITALS: BP 146/81; PULSE 59; TEMP 36.6; O2SAT 96
[2017-03-16] MEDS: ONDANSETRON INJ 2 MG/ML 2 ML VIAL IV PRN (07:56)
[2017-03-16 08:43] LABS: BUN/CREATININE RATIO 15.8 (10-20); CALCIUM 8.7 mg/dl (8.5-10.1); CREATININE 0.73 mg/dl (0.60-1.20)
[2017-03-16] MEDS ORDERED: KETOROLAC TROMETHAMINE 30 MG/ML VIAL IV ONE (08:45)
[2017-03-16] MEDS ORDERED: SODIUM CHLORIDE 0.9% IV ONE (09:45)
[2017-03-16] MEDS ORDERED: METHYLPREDNISOLONE IV ONE (09:45)
--- NOTE | 2017-03-16 10:02 | Neurology Progress Notes ---
Neurology Progress Note Date of Service March 16, 2017. Subjective Follow up for weakness/ numbness the patient's weakness and numbness of the UE and left face has resolved however she is suffering from an exacerbation of her "typical" migraine headache. The headache involves the frontal region and is currently an 8/10. it is described as throbbing and did slightly worsen when sitting up. Did not worsen in the supine position. She was treated in the past with short courses of prednisone and compazine for her migraines which have been able to abort the migraine in the past. She is s/p lumbar puncture. She had been up and walking around this morning with assistance. Objective Date Time Temp Pulse Resp B/P Pulse Ox O2 Delivery O2 Flow Rate FiO2 03/16/17 08:00 Room Air 03/16/17 07:54 36.6 59 18 146/81 96 Room Air 03/16/17 04:00 Room Air 03/16/17 03:21 36.7 70 16 119/74 96 Room Air 03/15/17 23:59 Room Air 03/15/17 22:56 36.5 55 18 136/74 96 Room Air 03/15/17 19:30 36.7 65 16 163/90 93 Room Air 03/15/17 18:00 64 159/81 96 Room Air 03/15/17 17:00 73 142/77 97 Room Air 03/15/17 16:30 68 149/93 99 Room Air 03/15/17 16:00 98 Room Air 03/15/17 16:00 66 151/87 100 Room Air 03/15/17 15:45 67 137/79 99 Room Air 03/15/17 15:39 36.6 67 18 165/96 97 Room Air 03/15/17 14:57 36.6 66 18 149/92 97 Room Air 03/15/17 12:00 99 Room Air 03/15/17 11:19 70 100 03/15/17 11:09 36.6 70 18 135/85 100 Room Air Last 24 Hours Test 03/15/17 14:32 03/15/17 15:13 03/16/17 07:20 CSF Color COLORLESS CSF Appearance CLEAR CSF WBC 0 /uL CSF RBC 0 /uL CSF Xanthrochromic NO XANTHOCHROMIA CSF Cell Count Tube # 3 CSF Chemistry Tube # #1 CSF Glucose 51 mg/dl CSF Total Protein 56.8 mg/dl Random Glucose 89 mg/dl 92 mg/dl White Blood Count 4.12 K/uL Red Blood Count 3.95 M/uL Hemoglobin 11.8 g/dL Hematocrit 35.1 % Mean Corpuscular Volume 88.9 fL Mean Corpuscular Hemoglobin 29.9 pg Mean Corpuscular Hemoglobin Concent 33.6 g/dl Platelet Count 224 K/uL Mean Platelet Volume 9.1 fL Neutrophils (%) (Auto) 43.6 % Lymphocytes (%) (Auto) 41.7 % Monocytes (%) (Auto) 9.7 % Eosinophils (%) (Auto) 4.1 % Basophils (%) (Auto) 0.7 % Neutrophils # (Auto) 1.79 K/uL Lymphocytes # (Auto) 1.72 K/uL Monocytes # (Auto) 0.40 K/uL Eosinophils # (Auto) 0.17 K/uL Basophils # (Auto) 0.03 K/uL RDW Standard Deviation 42.1 fL RDW Coefficient of Variation 12.9 % Immature Granulocyte % (Auto) 0.2 % Immature Granulocyte # (Auto) 0.01 K/uL Sodium Level 140 mmol/L Potassium Level 4.0 mmol/L Chloride Level 107 mmol/L Carbon Dioxide Level 27 mmol/L Anion Gap 6.0 mmol/L Blood Urea Nitrogen 12 mg/dl Creatinine 0.73 mg/dl Est Creatinine Clear Calc Drug Dose 73.5 ml/min Estimated GFR () 103.8 Estimated GFR (Non- 89.5 BUN/Creatinine Ratio 15.8 Calcium Level 8.7 mg/dl Exam: General: ambulatory however with assistance, not in acute distress, oriented x3 Skin: no rashes noted, no suspicious lesions, no areas of inflammations/ lacerations/ erythema noted, bandage on lower back is noted from LP Neck: inspection WNL, full ROM of neck MSK: inspection of all limbs WNL, motor and sensation intact in all limbs, no swelling of joints NVS: PERRL, EOMI, sensation intact in all extremities, no dysdiadochokinesia, no pronator drift, coordination intact, no facial drooping noted, facial sensation intact Current Inpatient Medications Medications (Trade) Dose Ordered Sig/Liane Route Start Time Stop Time Status Last Admin Dose Admin Aspirin (Ecotrin Tab) 162 mg QAM PO 03/14/17 09:00 04/13/17 08:59 5/3/17 07:48 162 MG Heparin Sodium (Porcine) (Heparin Sq 5000 Unit/0.5ml) 5,000 unit Q8H SQ 03/14/17 06:00 04/13/17 05:59 03/16/17 05:27 5,000 UNIT Acetaminophen (Tylenol Tab) 650 mg Q4H PRN PO 03/14/17 01:00 04/13/17 00:59 03/16/17 05:26 650 MG Al Hydrox/Mg Hydrox/Simethicone (Maalox Max Susp) 15 ml Q4H PRN PO 03/14/17 01:00 04/13/17 00:59 Magnesium Hydroxide (Milk Of Magnesia Susp) 30 ml Q12H PRN PO 03/14/17 01:00 04/13/17 00:59 Ondansetron HCl (Zofran Inj) 4 mg Q6H PRN IV 03/14/17 01:00 04/13/17 00:59 03/16/17 07:56 4 MG Polyethylene (Miralax Powder Packet) 17 gm DAILY PRN PO 03/14/17 01:00 04/13/17 00:59 Fish Oil ([place]-3 (Purified Fish Oil) Cap) 2 gm DAILY PO 03/14/17 09:00 04/13/17 08:59 03/16/17 07:47 2 GM Gabapentin (Neurontin Cap) 400 mg QID PO 03/14/17 09:00 04/13/17 08:59 03/16/17 07:48 400 MG Levothyroxine Sodium (Synthroid Tab) 50 mcg DAILYBB PO 03/14/17 06:00 04/13/17 05:59 03/16/17 05:26 50 MCG Lorazepam (Ativan Tab) 1 mg HS PRN PO 03/14/17 01:00 04/13/17 00:59 03/14/17 23:37 1 MG Lorazepam (Ativan Tab) 0.5 mg DAILY PRN PO 03/14/17 01:00 04/13/17 00:59 03/15/17 19:36 0.5 MG Magnesium Oxide (Mag-Ox Tab) 400 mg DAILY PO 03/14/17 09:00 04/13/17 08:59 03/16/17 07:48 400 MG Potassium Chloride (Klor-Con M10) 10 meq DAILY PO 03/14/17 09:00 04/13/17 08:59 03/16/17 07:47 10 MEQ Ranitidine HCl (zANTac TAB) 150 mg BID PO 03/14/17 09:00 04/13/17 08:59 03/16/17 07:46 150 MG Valacyclovir HCl (Valtrex Tab) 500 mg HS PO 03/14/17 21:00 03/24/17 20:59 03/15/17 20:57 500 MG Venlafaxine HCl (effeXOR EXTENDED REL CAP) 150 mg QAM PO 03/14/17 09:00 04/13/17 08:59 03/16/17 07:46 150 MG Venlafaxine HCl (effeXOR TAB) 75 mg QPM PO 03/14/17 21:00 04/13/17 20:59 03/15/17 20:56 75 MG Calcium/Vitamin D (Caltrate Plus Tab) 1 tab DAILY PO 03/14/17 09:00 04/13/17 08:59 03/16/17 07:46 1 TAB Pantoprazole Sodium (Protonix Tab) 40 mg BID PO 03/14/17 09:00 04/13/17 08:59 03/16/17 07:47 40 MG Clopidogrel Bisulfate (plAVix TAB) 75 mg QAM PO 03/14/17 09:00 04/13/17 08:59 03/16/17 07:48 75 MG Gadobutrol (Gadavist) 6 mmol UD PRN IV 03/14/17 23:00 03/18/17 22:59 Verapamil HCl ([place]-Sr Tab) 120 mg HS PO 03/15/17 21:00 04/14/17 20:59 03/15/17 20:55 120 MG Impression Patient is s/p lumbar puncture and was completed to evaluate to rule out a demyelinating disorder. She does have a slight elevation in her protein however may be incidental. Will have to wait for final CSF results to determine if this is demyelinating. Based on the patient's symptoms however this may very well be a complex migraine and we believe she will have improved control of these headaches with the Verapamil. Patient can follow up her final CSF results in the office. She has an ongoing headache this morning however it is unlikely related to the lumbar puncture based on characteristics. Patient may benefit from a high dose of steroids to help break the migraine. Plan 1. Weakness/ numbness in the presence of white matter changes on imaging- improved weakness - LP results are pending - ok to follow up these results in the office 2. Complex migraine - verapamil for prophylaxis - 250mg methylpred x 1 - otherwise pain control per primary team Resident Physician Supervision Note: I was present with Dr. Walker during the history and exam. I discussed the case with the resident and agree with the findings and plan as documented in the note. Any exceptions or clarifications are listed here: [None] Documented By: Stevie Neely Patient likely has a persistent migraine headache. Does not have a postural component. Spinal headache probably unlikely. I have recommended methylprednisolone 250 mg IV as a treatment for her refractory headache. Plan to follow with a Medrol Dosepak taper depending on clinical response at time of discharge. May treat associated nausea with appropriate anti-emetics. Have patient continue with verapamil for complex migraine prevention. Further dosage adjustments may be made in the outpatient setting. Initial CSF analysis is generally unremarkable, mild elevation in protein noted. MS profile pending, results will likely be available early next week. Again, patient should follow-up in the outpatient clinic for ongoing management. She does not really have a history of relapses and remissions or progressive accumulation of neurological disability that would otherwise suggest a progressive demyelinating condition such as multiple sclerosis.
[2017-03-16 12:03] VITALS: BP 126/71; PULSE 66; TEMP 36.5; O2SAT 95
[2017-03-16 15:15] VITALS: BP 124/72; PULSE 67; TEMP 36.8; O2SAT 96
--- NOTE | 2017-03-16 16:08 | Family Medicine Progress Note ---
Progress Note Date of Service March 16, 2017. Subjective Pt evaluation today including: conversation w/ patient, physical exam, chart review, lab review Pain: complains of a headache PO Intake: dictated Voiding: no voiding problems 61-year-old female with past medical history of SLE, completed migraines, 3 prior CVAs presents with left-sided numbness and paresthesias which started on the face and progressed to her arm and leg which started last night. She was admitted last July with a headache, left-sided weakness and pain MRI at that time was consistent with subacute ischemic infarct versus demyelinating process . Underwent a lumbar puncture yesterday which she tolerated well. Continues to complain of headache. Also received verapamil last night. Numbness on the left side of her face is improved but she still complains about left hand" feeling thick" Denies any weakness, blurriness of vision, slurring of speech. Denies chest pain, palpitations, dizziness, gait disturbance Constitutional: No chills, No fever Eyes: + problem reported (headache), No worsening of vision ENT: No hearing loss Respiratory: No cough, No sputum Cardiovascular: No chest pain Abdomen: + nausea, No pain, No vomiting Musculoskeletal: No joint pain Female : No dysuria Medications Current Inpatient Medications Medications (Trade) Dose Ordered Sig/Liane Route Start Time Stop Time Status Last Admin Dose Admin Aspirin (Ecotrin Tab) 162 mg QAM PO 03/14/17 09:00 04/13/17 08:59 03/16/17 07:48 162 MG Heparin Sodium (Porcine) (Heparin Sq 5000 Unit/0.5ml) 5,000 unit Q8H SQ 03/14/17 06:00 04/13/17 05:59 03/16/17 13:38 5,000 UNIT Acetaminophen (Tylenol Tab) 650 mg Q4H PRN PO 03/14/17 01:00 04/13/17 00:59 03/16/17 05:26 650 MG Al Hydrox/Mg Hydrox/Simethicone (Maalox Max Susp) 15 ml Q4H PRN PO 03/14/17 01:00 04/13/17 00:59 Magnesium Hydroxide (Milk Of Magnesia Susp) 30 ml Q12H PRN PO 03/14/17 01:00 04/13/17 00:59 Ondansetron HCl (Zofran Inj) 4 mg Q6H PRN IV 03/14/17 01:00 04/13/17 00:59 03/16/17 07:56 4 MG Polyethylene (Miralax Powder Packet) 17 gm DAILY PRN PO 03/14/17 01:00 04/13/17 00:59 Fish Oil ([place]-3 (Purified Fish Oil) Cap) 2 gm DAILY PO 03/14/17 09:00 04/13/17 08:59 03/16/17 07:47 2 GM Gabapentin (Neurontin Cap) 400 mg QID PO 03/14/17 09:00 04/13/17 08:59 03/16/17 16:24 400 MG Levothyroxine Sodium (Synthroid Tab) 50 mcg DAILYBB PO 03/14/17 06:00 04/13/17 05:59 03/16/17 05:26 50 MCG Lorazepam (Ativan Tab) 1 mg HS PRN PO 03/14/17 01:00 04/13/17 00:59 03/14/17 23:37 1 MG Lorazepam (Ativan Tab) 0.5 mg DAILY PRN PO 03/14/17 01:00 04/13/17 00:59 03/15/17 19:36 0.5 MG Magnesium Oxide (Mag-Ox Tab) 400 mg DAILY PO 03/14/17 09:00 04/13/17 08:59 03/16/17 07:48 400 MG Potassium Chloride (Klor-Con M10) 10 meq DAILY PO 03/14/17 09:00 04/13/17 08:59 03/16/17 07:47 10 MEQ Ranitidine HCl (zANTac TAB) 150 mg BID PO 03/14/17 09:00 04/13/17 08:59 03/16/17 07:46 150 MG Valacyclovir HCl (Valtrex Tab) 500 mg HS PO 03/14/17 21:00 03/24/17 20:59 03/15/17 20:57 500 MG Venlafaxine HCl (effeXOR EXTENDED REL CAP) 150 mg QAM PO 03/14/17 09:00 04/13/17 08:59 03/16/17 07:46 150 MG Venlafaxine HCl (effeXOR TAB) 75 mg QPM PO 03/14/17 21:00 04/13/17 20:59 03/15/17 20:56 75 MG Calcium/Vitamin D (Caltrate Plus Tab) 1 tab DAILY PO 03/14/17 09:00 04/13/17 08:59 03/16/17 07:46 1 TAB Pantoprazole Sodium (Protonix Tab) 40 mg BID PO 03/14/17 09:00 04/13/17 08:59 03/16/17 07:47 40 MG Clopidogrel Bisulfate (plAVix TAB) 75 mg QAM PO 03/14/17 09:00 04/13/17 08:59 03/16/17 07:48 75 MG Gadobutrol (Gadavist) 6 mmol UD PRN IV 03/14/17 23:00 03/18/17 22:59 Verapamil HCl (Calan-Sr Tab) 120 mg HS PO 03/15/17 21:00 04/14/17 20:59 03/15/17 20:55 120 MG Objective Vital Signs Date Time Temp Pulse Resp B/P Pulse Ox O2 Delivery O2 Flow Rate FiO2 03/16/17 15:15 36.8 67 18 124/72 96 Room Air 03/16/17 12:03 36.5 66 18 126/71 95 Room Air 03/16/17 12:00 Room Air 03/16/17 08:00 Room Air 03/16/17 07:54 36.6 59 18 146/81 96 Room Air 03/16/17 04:00 Room Air 03/16/17 03:21 36.7 70 16 119/74 96 Room Air 03/15/17 23:59 Room Air 03/15/17 22:56 36.5 55 18 136/74 96 Room Air 03/15/17 19:30 36.7 65 16 163/90 93 Room Air 03/15/17 18:00 64 159/81 96 Room Air 03/15/17 17:00 73 142/77 97 Room Air 03/15/17 16:30 68 149/93 99 Room Air Physical Exam General Appearance: WD/WN, + mild distress Eyes: normal inspection ENT: normal ENT inspection, hearing grossly normal Neck: supple Respiratory/Chest: chest non-tender, lungs clear, normal breath sounds, no respiratory distress, no accessory muscle use Cardiovascular: regular rate, rhythm Abdomen: normal bowel sounds, non tender, soft 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: 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, alert, normal mood/affect, oriented x 3, + sensory deficit (left-sided numbness improved) Skin: normal color Laboratory Results 03/16/17 07:20 Red Blood Count 3.95, Mean Corpuscular Volume 88.9, Mean Corpuscular Hemoglobin 29.9, Mean Corpuscular Hemoglobin Concent 33.6, Mean Platelet Volume 9.1, Neutrophils (%) (Auto) 43.6, Lymphocytes (%) (Auto) 41.7, Monocytes (%) (Auto) 9.7, Eosinophils (%) (Auto) 4.1, Basophils (%) (Auto) 0.7, Neutrophils # (Auto) 1.79, Lymphocytes # (Auto) 1.72, Monocytes # (Auto) 0.40, Eosinophils # (Auto) 0.17, Basophils # (Auto) 0.03 03/16/17 07:20 Test 03/16/17 07:20 White Blood Count 4.12 K/uL (4.8-10.8) Red Blood Count 3.95 M/uL (4.2-5.4) Hemoglobin 11.8 g/dL (12.0-16.0) Hematocrit 35.1 % (37-47) Mean Corpuscular Volume 88.9 fL (80-100) Mean Corpuscular Hemoglobin 29.9 pg (25-34) Mean Corpuscular Hemoglobin Concent 33.6 g/dl (32-36) Platelet Count 224 K/uL (130-400) Mean Platelet Volume 9.1 fL (7.4-10.4) Neutrophils (%) (Auto) 43.6 % Lymphocytes (%) (Auto) 41.7 % Monocytes (%) (Auto) 9.7 % Eosinophils (%) (Auto) 4.1 % Basophils (%) (Auto) 0.7 % Neutrophils # (Auto) 1.79 K/uL (1.4-6.5) Lymphocytes # (Auto) 1.72 K/uL (1.2-3.4) Monocytes # (Auto) 0.40 K/uL (0.11-0.59) Eosinophils # (Auto) 0.17 K/uL (0-0.5) Basophils # (Auto) 0.03 K/uL (0-0.2) RDW Standard Deviation 42.1 fL (36.4-46.3) RDW Coefficient of Variation 12.9 % (11.5-14.5) Immature Granulocyte % (Auto) 0.2 % Immature Granulocyte # (Auto) 0.01 K/uL (0.00-0.02) Anion Gap 6.0 mmol/L (3-11) Est Creatinine Clear Calc Drug Dose 73.5 ml/min Estimated GFR () 103.8 Estimated GFR (Non- 89.5 BUN/Creatinine Ratio 15.8 (10-20) Calcium Level 8.7 mg/dl (8.5-10.1) Assessment and Plan 61-year-old female with past medical history of SLE, complicated migraines, 3 prior CVAs presents with left-sided numbness and paresthesias which started on the face and progressed to her arm and leg which started last night. She was admitted last July with a headache, left-sided weakness and pain. MRI at that time was consistent with subacute ischemic infarct versus demyelinating process . Left sided facial numbness : - CVA ruled out. LP - mild elevation in protein noted. MS profile pending, results will likely be available early next week. To f/u with neurology as outpatient -Head CT: neg - MRI brain : confluent and patchy increased signal on T2 and FLAIR sequences is unchanged from her previous MRI done last year. The finding is nonspecific. - MRI cervical and thoracic spine: unremarkable - lyme serology negative - Lupus anticoagulant, homocystinemia, beta 2 microglobulin, antiphospholipid antibody studies pending - B12 level, TSH within normal limits - Echo neg - Continue aspirin and Plavix for now. Will likely be d/gentry home on one antiplatelet - She is statin intolerant Complex Headaches - Verapamil 120 mg at bedtime ordered - worse today but not postural - likely not spinal headache. - continue Toradol, - 250 mg methylprednisone given as per neurology - follow History of SLE: - Was last treated 2 years ago - Positive OLEKSANDR titers - Lupus anticoagulant, homocystinemia, beta 2 microglobulin, antiphospholipid antibodies pending - ESR 20 Run of [place] complex tachycardia on monitor - asymptomatic - Continue monitoring on tele - electrolytes normal. Hypothyroidism: - Continue Synthroid Depression: -Continue Effexor PT/OT DVT prophylaxis: Heparin Full code Disposition: Monitor in telemetry Anticipate d/c home in am if headache improved Resident Tracking Resident Involvement: Resident Care Provided Care Provided: Adult Hospital Medicine Reviewed: Pt Seen/Exam by Me History pounding headache - worse today Constitutional: denies: fever Respiratory: negative: short of breath Cardiovascular: denies chest pain General Appearance: no apparent distress Respiratory: lungs clear, no respiratory distress Cardiovascular: regular rate, rhythm 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: no motor/sensory deficits, alert, oriented x 3 Skin Characteristics: warm/dry Assessment/Plan I have reviewed the medical record and performed a history and physical examination of this patient today. I have discussed the case with Dr. Chung. The above note reflects my findings, conclusions, and recommendations.
[2017-03-16] MEDS: LORAZEPAM 0.5 MG TAB PO PRN (16:37)
[2017-03-16 18:56] VITALS: BP 125/73; PULSE 73; TEMP 36.5; O2SAT 97
[2017-03-16] MEDS: VERAPAMIL HCL 120 MG TABCR PO SCH (20:52)
[2017-03-16] MEDS: VENLAFAXINE HCL 50 MG TAB PO SCH (20:53)
[2017-03-16 23:31] LABS: B2 GLYCOPROTEIN IGA <9 SAU (<=20); B2 GLYCOPROTEIN IGG <9 SGU (<=20); B2 GLYCOPROTEIN IGM <9 SMU (<=20); DRVVT MIX INTERPRETAION Not Indicated; LAC PTT SCREEN 39 sec (<=40); LUPUS ANTICOAGULANT** TC36573X Negative (Negative); PHOSPHATIDYLSERINE IGA <20 U/mL (<20); PHOSPHATIDYLSERINE IGG <10 U/mL (<10); PHOSPHATIDYLSERINE IGM <25 U/mL (<25)
[2017-03-17] VITALS: BP 130/80; PULSE 70; TEMP 36.3; O2SAT 96
[2017-03-17 04:00] VITALS: BP 130/71; PULSE 75; TEMP 36.8; O2SAT 95
[2017-03-17 06:07] LABS: BASO % 0.1 %; BASO ABS # 0.01 K/uL (0-0.2); COMPLETE YES; EOS % 0.1 %; HEMATOCRIT 34.7 % (37-47); IG% 0.2 %; LYMPH % 14.6 %; LYMPH ABS # 1.27 K/uL (1.2-3.4); MEAN CELL VOLUME 88.5 fL (80-100); MEAN CORPUSCULAR HEMOGLOBIN 29.3 pg (25-34); MEAN CORPUSCULAR HGB CONC 33.1 g/dl (32-36); MEAN PLATELET VOLUME 9.1 fL (7.4-10.4); MONO % 8.9 %; NEUT % 76.1 %; PLATELET COUNT 232 K/uL (130-400); RED BLOOD COUNT 3.92 M/uL (4.2-5.4); WHITE BLOOD COUNT 8.72 K/uL (4.8-10.8)
[2017-03-17] MEDS: HEPARIN SOD 5000 UNIT/0.5 ML CARP SQ SCH ×2 (06:13→13:22)
[2017-03-17] MEDS: LEVOTHYROXINE 50 MCG TAB PO SCH (06:13)
[2017-03-17 06:36] LABS: BUN/CREATININE RATIO 19.9 (10-20); CALCIUM 9.3 mg/dl (8.5-10.1); CREATININE 0.73 mg/dl (0.60-1.20); POTASSIUM 4.4 mmol/L (3.5-5.1)
[2017-03-17] MEDS: OMEGA-3 (PURIFIED FISH OIL) 1 GM CAP PO SCH (08:08)
[2017-03-17] MEDS: CALCIUM 600MG + VIT D 400 IU TAB PO SCH (08:08)
[2017-03-17] MEDS: PANTOprazole SOD 40 MG TAB PO SCH (08:08)
[2017-03-17] MEDS: VENLAFAXINE HCL XR 150 MG CAPXR PO SCH (08:08)
[2017-03-17] MEDS: RANITIDINE HCL 150 MG TAB PO SCH (08:09)
[2017-03-17] MEDS: GABAPENTIN 400 MG CAP PO SCH ×3 (08:09→16:25)
[2017-03-17] MEDS: POTASSIUM CHLORIDE 10 MEQ TABCR PO SCH (08:09)
[2017-03-17] MEDS: CLOPIDOGREL BISULFATE 75 MG TAB PO SCH (08:09)
[2017-03-17] MEDS: MAGNESIUM OXIDE 400 MG TAB PO SCH (08:09)
[2017-03-17] MEDS: ASPIRIN 81 MG ECTAB PO SCH (08:10)
[2017-03-17 08:19] VITALS: BP 138/63; PULSE 76; TEMP 37; O2SAT 98
[2017-03-17 12:06] VITALS: BP 129/66; PULSE 64; TEMP 36.5; O2SAT 99
[2017-03-17] MEDS ORDERED: VERA120T65 PO (13:37)
--- NOTE | 2017-03-17 13:46 | Discharge Instructions ---
Discharge Instructions Date of Service March 17, 2017. Admission Reason for Admission: CVA Discharge Discharge Diagnosis / Problem: Weakness and numbness of Upper extremity and face, ruled out stroke Discharge Goals Goal(s): Improve disease control (Work up pending on discharge) Activity Recommendations Activity Limitations: as noted below (Limit use of strairs - Has falled multiple times on the stairs) Physical recommends home health therapy services since there is safety concerns as you have fallen multiple times on them since the stairs are high and very narrow. . Instructions / Follow-Up Instructions / Follow-Up With family physician in one week With neurology - Dr. Neely in 2 weeks Current Hospital Diet Patient's current hospital diet: AHA Diet (Heart Healthy) Discharge Diet Recommended Diet: AHA Diet (Heart Healthy) Pending Studies Studies pending at discharge: yes List of pending studies: CSF studies Medical Emergencies . Who to Call and When: Medical Emergencies: If at any time you feel your situation is an emergency, please call 911 immediately. . Non-Emergent Contact Non-Emergency issues call your: Primary Care Provider . . "Provider Documentation" section prepared by Lizy Fuller. . VTE Core Measure Inpt VTE Proph given/why not?: Unfractionated heparin SQ
--- NOTE | 2017-03-17 13:48 | Discharge Summary ---
Discharge Summary Date of Service March 17, 2017. Discharge Summary Admission Date: March 14, 2017 at 00:55 Discharge Date: March 17, 2017 Discharge Disposition: Home with services Principal Diagnosis: Weakness and numbness in UE and face, work up pending. r/ o stroke Immunizations: Have You Had Influenza Vaccine: No History of Tetanus Vaccine?: Yes Tetanus Immunization Date: Feb 24, 2004 History of Pneumococcal: No History of Hepatitis B Vaccine: No [place] [facility] [place] Medication Reconciliation New Medications: Verapamil HCl (Verapamil HCl ER) 120 Mg Tabcr 120 MG PO HS for 30 Days, #30 TAB Continued Medications: Aspirin (Aspirin Adult Low Dose) 81 Mg Tab 81 MG PO DAILY Calcium Carbonate-Vitamin D (Calcium 600 + D) 1 Tab Tab 1 TAB PO DAILY Fish Oil ([place]-3) 1 Ea Cap 1-2 CAP PO DAILY, CAP Fluticasone Propionate (Nasal) (Flonase Allergy Relief) 50 Mcg/Act Spr 1 SPRAY DENA BID Gabapentin (Neurontin) 400 Mg Cap 400 MG PO QID, CAP Gentamicin Sulfate (Gentak) 12 Appln/3.5 Gm Oint 1 APPLN OP TID APPLY A SMALL AMOUNT TO AFFECTED EYES Levothyroxine Sodium (Synthroid) 50 Mcg Tab 50 MCG PO DAILY Lorazepam (Lorazepam) 0.5 Mg Tab 0.5-1 MG PO HS PRN for Sleep Lorazepam (Ativan) 0.5 Mg Tab 0.5 MG PO DAILY PRN for Anxiety, TAB Magnesium Oxide (Mag-Ox) 400 Mg Tab 400 MG PO DAILY, TAB Melatonin (Melatonin Maximum Strengt) 5 Mg Tab 10 MG PO HS, #30 TAB 1 Refill Multivitamin (Multivitamin) Tab 1 TAB PO DAILY, 0 Refills Omeprazole (Prilosec) 20 Mg Capcr 20 MG PO BID Ondansetron Hcl (Zofran) 4 Mg Tab 4 MG PO Q8 PRN for Nausea, TAB Potassium Chloride Microencaps (Potassium Chloride Er) 10 Meq Tab 10 MEQ PO DAILY Ranitidine Hcl (Zantac) 150 Mg Tab 150 MG PO BID, TAB Riboflavin (Riboflavin) 400 Mg Tab 400 MG PO DAILY Valacyclovir (Valtrex) 500 Mg Tab 500 MG PO HS Venlafaxine Hcl (Effexor) 75 Mg Tab 75 MG PO QPM Venlafaxine Hcl (Effexor Extended Rel) 150 Mg Cap 150 MG PO QAM Discontinued Medications: Amoxicillin (Amoxicillin) 875 Mg Tab 1 TAB PO Q12 for 10 Days START MARCH 14, 2017 FOR 10 DAYS Discharge Exam Review of Systems: Constitutional: No fever Respiratory: No shortness of breath Cardiovascular: No chest pain Abdomen: No nausea, No pain Neurologic: No paralysis, No weakness Endocrine: No fatigue Physical Exam: General Appearance: no apparent distress Respiratory/Chest: lungs clear, no respiratory distress Cardiovascular: regular rate, rhythm Abdomen / GI: normal bowel sounds, non tender, soft 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: alert, oriented x 3 Skin: warm/dry Hospital Course 61-year-old female with past medical history of SLE, complicated migraines, 3 prior CVAs presents with left-sided numbness and paresthesias which started on the face and progressed to her arm and leg which started last night. She was admitted last July with a headache, left-sided weakness and pain. MRI at that time was consistent with subacute ischemic infarct versus demyelinating process . Kept on PCU. Had Head CT: neg. Neurology consulted. Had MRI brain showing confluent and patchy increased signal on T2 and FLAIR sequences is unchanged from her previous MRI done last year. The finding is nonspecific. MRI cervical and thoracic spine were neg. Lyme test came back negative and B12, TSH within normal range. Echo was negative as well. Lupus anticoagulant, homocystinemia, beta 2 microglobulin, antiphospholipid antibody studies pending LP - mild elevation in protein noted. MS profile pending, results will likely be available early next week. To f/u with neurology as outpatient She also had Headaches which were complex migraines. - Added Verapamil 120 mg at bedtime - Also received 250 mg methylprednisone with significant improvement in headaches. History of SLE: - Was last treated 2 years ago - Positive OLEKSANDR titers - Lupus anticoagulant, homocystinemia, beta 2 microglobulin, antiphospholipid antibodies pending - ESR 20 PAT on monitor - asymptomatic Total Time Spent: Greater than 30 minutes (40) This includes examination of the patient, discharge planning, medication reconciliation, and communication with other providers. Discharge Instructions Please refer to the electronic Patient Visit Report (Discharge Instructions) for additional information. Additional Copies To Margret Alejandro M.D.
[2017-03-17 13:58] VITALS: BP 129/66; PULSE 64; TEMP 36.5; O2SAT 99
[2017-03-19 11:32] LABS: ALBUMIN 3.6 g/dL (3.5-4.9); IGG CSF 2.7 mg/dL (0.8-7.7); IGG SERUM 758 mg/dL (694-1618); LYME DNA PCR CSF OR SYNOVIAL Not detected (Not Detected); LYME DNA SOURCE CSF; MYELIN BASIC PROTEIN 663 <2.0 mcg/L (0.0-4.0)
--- NOTE | 2017-03-20 09:21 | EDITING REQUIRED CODING QUERY ---
CODING QUERY To promote full compliance with coding requirements relating to patient care, provider participation is requested in all cases of appeals and generalist clerk uncertainty. Please assist us with the question(s) below: Coding Question(s): Patient admitted with weakness and numbness of upper extremity and face. Stroke ruled out per 03/16 progress note. Cerebrospinal studies negative. Please document, if known or suspected the etiology of the patient's presenting symptoms. Thank you . Chago Rene [facility] Physician's Response(s): Would like to defer to neurology. Thanks. Thank you Chago Rene Principal Diagnosis: "_that condition established after study, to be chiefly responsible for occasioning the admission of the patient to the hospital for care." Co-Existing Principal Diagnosis: "_when two or more diagnoses equally meet the criteria for principal diagnosis as determined by the circumstances of admission, diagnostic work up, and/or therapy provided, and the Alphabetic Index, Tabular List, or another coding guideline does not provide sequencing direction, any one of the diagnoses may be sequenced first." "When the physician has documented what appears to be a current diagnosis in the body of the record, but has not included the diagnosis in the final diagnostic statement, the physician should be asked whether the diagnosis should be added." (Source [facility]oding [facility] 2 QTR90. p3-4)
--- NOTE | 2017-03-23 12:05 | EDITING REQUIRED CODING QUERY ---
CODING QUERY To promote full compliance with coding requirements relating to patient care, provider participation is requested in all cases of mixer whipped topping uncertainty. Please assist us with the question(s) below: Coding Question(s): Patient admitted with weakness and numbness of upper extremity and face. Stroke ruled out per 03/16 progress note. Cerebrospinal fluid negative. Please document, if known or suspected, the etiology of the patient's presenting symptoms. Thanks for your help! Chago CHAVEZ [facility] Physician's Response(s): Suspect complex migraine Principal Diagnosis: "_that condition established after study, to be chiefly responsible for occasioning the admission of the patient to the hospital for care." Co-Existing Principal Diagnosis: "_when two or more diagnoses equally meet the criteria for principal diagnosis as determined by the circumstances of admission, diagnostic work up, and/or therapy provided, and the Alphabetic Index, Tabular List, or another coding guideline does not provide sequencing direction, any one of the diagnoses may be sequenced first." "When the physician has documented what appears to be a current diagnosis in the body of the record, but has not included the diagnosis in the final diagnostic statement, the physician should be asked whether the diagnosis should be added." (Source Coding Clinic 2 QTR90. p3-4)
== END 2017-03-17 17:16 | disposition home health service (06) | DRG 103 ==
LOC: ENRESERVTM → ENRESERVDT → EDBD 22:15 → C.EDA 22:15 → C.2T 03-14 00:55
PROVIDERS: ADMIT Internal Medicine; ATTEND Family Medicine
DX: G43.109 Migraine with aura, not intractable, without status migrainosus (principal); F32.9 Major depressive disorder, single episode, unspecified; G25.81 Restless legs syndrome; I25.2 Old myocardial infarction; Z83.3 Family history of diabetes mellitus; I34.8 Other nonrheumatic mitral valve disorders; M32.9 Systemic lupus erythematosus, unspecified; E03.9 Hypothyroidism, unspecified; Z86.73 Personal history of transient ischemic attack (TIA), and cerebral infarction without residual deficits; Z86.718 Personal history of other venous thrombosis and embolism

== ENCOUNTER → 2017-03-22 | Outpatient (CLI) | payer OTHER ==
[~2017-03-22] MED LIST changes: -ALPR1TAB3 PO; +ASPI-589 PO; -ASPI325T39 PO; +CALC-20 PO; -CALCTAB65 PO; +FLUT0.15 NAE; -GABA-112 PO; -GABA1CAP4 PO; +GABA1CAP5 PO; +GNTOPO OP; +LORA-741 PO; +MAGN400T6 PO; +MELATAB2 PO; -NRN100 PO; +OMEG10007 PO; +POTA10TA32 PO; -POTA10TA33 PO; +RIBO1TAB4 PO; -TRAM-10 PO; +VERA120T65 PO
--- NOTE | 2017-03-22 16:13 | DIAGNOSTIC IMAGING REPORT ---
LEFT HAND MIN 3 VIEWS ROUTINE CLINICAL HISTORY: LEUKOPENIA, POSITIVE OLEKSANDR pain COMPARISON: None. DISCUSSION: Generalized decrease in bony mineralization. Mild degenerative change of the interphalangeal joints. No significant marginal erosions. Minimal degenerative change of the articular services of the wrist. There is no evidence for soft tissue swelling. IMPRESSION: Moderate generalized osteopenia. Mild degenerative change. Electronically signed by: Adithya George M.D. 03/22/2017 4:12 PM Dictated Date/Time: 03/22/2017 4:11 PM
--- NOTE | 2017-03-22 16:14 | DIAGNOSTIC IMAGING REPORT ---
RIGHT HAND MIN 3 VIEWS ROUTINE CLINICAL HISTORY: LEUKOPENIA, POSITIVE OLEKSANDR, right hand pain COMPARISON: None. DISCUSSION: The bones are osteopenic. No acute fractures are visualized. There are no erosive or destructive changes. IMPRESSION: Osteopenia. No evidence of erosive disease. Electronically signed by: Benny Rosales M.D. 03/22/2017 4:12 PM Dictated Date/Time: 03/22/2017 4:12 PM
[2017-03-22 17:27] LABS: C-REACTIVE PROTEIN < 0.29 mg/dl (0-0.29); RHEUMATOID FACTOR < 10.0 U/mL (0-15)
[2017-03-27 16:11] LABS: ANTI-CENTROMERE AB <1.0 NEG AI (<1.0 NEG); ANTI-SS-A <1.0 NEG AI (<1.0 NEG); ANTI-SS-B <1.0 NEG AI (<1.0 NEG); DNA ds CRITHIDIA NEGATIVE (NEGATIVE); MICROSOMAL AB 2 IU/ML (<9); Sm Antibody <1.0 NEG AI (<1.0 NEG)
== END | disposition home or self-care (01) ==
LOC: C.LAB1850 15:43
PROVIDERS: ATTEND Internal Medicine Rheumatology
DX: D72.819 Decreased white blood cell count, unspecified (principal); R76.8 Other specified abnormal immunological findings in serum; M85.842 Other specified disorders of bone density and structure, left hand

== ENCOUNTER → 2017-04-14 | Outpatient (CLI) | payer OTHER ==
[2017-04-14 15:45] LABS: URINE APPEARANCE CLEAR (CLEAR); URINE BILIRUBIN NEG (NEG); URINE COLOR YELLOW; URINE EPITHELIAL CELL AUTO 0-5 /lpf (0-5); URINE NITRITE NEG (NEG); URINE PH 6.5 (4.5-7.5); URINE SPECIFIC GRAVITY 1.009 (1.000-1.030); UROBILINOGEN NEG (NEG)
[2017-04-14 15:51] LABS: MANUAL MICROSCOPIC REQUIRED? NO; REVIEW REQ? NO
== END | disposition home or self-care (01) ==
LOC: C.LAB1850 14:18
PROVIDERS: ATTEND Internal Medicine Rheumatology
DX: R76.8 Other specified abnormal immunological findings in serum (principal)

== ENCOUNTER → 2017-08-26 | Outpatient (CLI) | payer OTHER ==
--- NOTE | 2017-08-26 13:40 | DIAGNOSTIC IMAGING REPORT ---
KUB CLINICAL HISTORY: CONSTIPATION K59.00 COMPARISON STUDY: CT scan dated 10/02/2013 FINDINGS: There is scattered stool within the colon. There are no transition zones indicate bowel obstruction. There are nonspecific pelvic basin calcifications likely resulting a phlebolith. The renal shadows are largely obscured. IMPRESSION: 1. No evidence of pathologic bowel dilatation 2. Mild fecal retention. Electronically signed by: Benny Rosales M.D. 08/26/2017 1:39 PM Dictated Date/Time: 08/26/2017 1:39 PM
== END | disposition home or self-care (01) ==
LOC: C.RADPV 13:22
PROVIDERS: ATTEND Nurse Practitioner
DX: K59.00 Constipation, unspecified (principal)

== ENCOUNTER 2017-12-10 18:58 | Emergency (ER) | payer OTHER ==
[~2017-12-10] VITALS: Ht 160 cm; Wt 72.2 kg
[2017-12-10 19:08] VITALS: TEMP 36.8; Ht 160 cm; Wt 72.2 kg
[2017-12-10] MEDS ORDERED: ACETAMINOPHEN 500 MG TAB PO STA (19:31)
[2017-12-10] MEDS ORDERED: IBUPROFEN 600 MG TAB PO STA (19:31)
--- NOTE | 2017-12-10 20:13 | EMERGENCY ROOM VISIT NOTE ---
History First contact with patient: 19:15 Chief Complaint: RESPIRATORY PROBLEMS Stated Complaint: CAN'T BREATH, STUFFED UP,HEADACHE,HURT ALL OVER History of Present Illness The patient is a 62 year old female who presents to the Emergency Room with complaints of sinus congestion, productive cough, chills and body aches for approximately 1 week. The patient's [id number] has been sick with similar symptoms. She did not take her temperature at home. She has been trying [facility]- [place] with minimal relief. She denies any shortness of breath or chest pain. No significant headache or neck pain. Review of Systems 10 system review performed and negative unless noted in HPI or below Past Medical/Surgical History Medical Problems: (1) Anxiety State Nos (2) Appendectomy (3) CVA (cerebral vascular accident) (4) Cystocele (5) Depressive Disorder Nec (6) Ectopic (7) Facial paresthesia (8) Hx-Venous Thrombosis&Embolism (9) Hysterectomy (10) Irritable Bowel Syndrome (11) Migraine Unspecified W/O Intractable Migraine (12) Mitral Valve Disorder (13) Old Myocardial Infarct (14) Paresthesia of both lower extremities (15) Pure Hypercholesterolem (16) RECTOCELE (17) Removal of ovarian cyst (18) Restless Legs Syndrome Family History Diabetes mellitus FHx: heart disease Social History Smoking Status: Never Smoker Drug Use: none Marital Status: Occupation Status: employed Current/Historical Medications Scheduled Amitriptyline Hcl (Elavil), 25 MG PO HS Amoxicillin & Pot Clavulanate (Augmentin 875-125 mg), 1 TAB PO BID Aspirin (Aspirin Adult Low Dose), 81 MG PO DAILY Calcium Carbonate-Vitamin D (Calcium 600 + D), 1 TAB PO DAILY Fish Oil ([place]-3), 1-2 CAP PO DAILY Gabapentin (Neurontin), 400 MG PO QID Levothyroxine Sodium (Synthroid), 50 MCG PO DAILY Magnesium Oxide (Mag-Ox), 400 MG PO DAILY Melatonin (Melatonin Maximum Strengt), 10 MG PO HS Multivitamin (Multivitamin), 1 TAB PO DAILY Omeprazole (Prilosec), 20 MG PO BID Potassium Chloride Microencaps (Potassium Chloride Er), 10 MEQ PO DAILY Prednisone (Prednisone), 50 MG PO DAILY Riboflavin (Riboflavin), 400 MG PO DAILY Valacyclovir (Valtrex), 500 MG PO HS Venlafaxine Hcl (Effexor), 75 MG PO QPM Venlafaxine Hcl (Effexor Extended Rel), 150 MG PO QAM Verapamil HCl (Verapamil HCl ER), 120 MG PO HS Scheduled PRN Fluticasone Propionate (Nasal) (Flonase Allergy Relief), 1 SPRAY DENA BID PRN for Allergic Reaction Hydrocodone W/ Homatropine (Hycodan 5/1.5MG 5 Ml), 5-10 ML PO Q4H PRN for Cough Lorazepam (Lorazepam), 0.5-1 MG PO HS PRN for Sleep Lorazepam (Ativan), 0.5 MG PO DAILY PRN for Anxiety Ondansetron Hcl (Zofran), 4 MG PO Q8 PRN for Nausea Physical Exam Vital Signs Date Time Temp Pulse Resp B/P (MAP) Pulse Ox O2 Delivery O2 Flow Rate FiO2 12/10/17 21:40 79 20 129/83 98 12/10/17 19:08 36.8 72 20 118/75 97 Room Air Physical Exam VITALS: Vitals are noted on the nurse's note and reviewed by myself. Vital signs stable. GENERAL: 62-year-old female, mildly ill in appearance,, SKIN: The skin was without rashes, erythema, edema, or bruising. HEAD: Normocephalic atraumatic. EYES: . Conjunctivae without injection, sclerae without icterus. Extraocular movements intact. NOSE: Tenderness over the frontal and maxillary sinuses bilaterally. MOUTH: Mucous membranes moist. Tonsils are not enlarged. Pharynx without erythema or exudate. Uvula midline. Airway patent. Tongue does not deviate. NECK: Supple without nuchal rigidity. No lymphadenopathy. Cervical spine is nontender. No JVD. HEART: Regular rate and rhythm without murmurs gallops or rubs. LUNGS: Clear to auscultation bilaterally without wheezes, rales or rhonchi. No accessory muscle use. ABDOMEN: Positive bowel sounds x 4.Soft, nontender, without organomegaly. No guarding or rebound tenderness. MUSCULOSKELETAL: No muscle atrophy, erythema, or edema noted. Strength 5/5 throughout. NEURO: Patient was alert and oriented to person place and time. Normal sensation to touch. No focal neurological deficits. Medical Decision & Procedures ER Provider Diagnostic Interpretation: CXR IMPRESSION: No acute process. Electronically signed by: Jose Caban M.D. 12/10/2017 8:52 PM Dictated Date/Time: 12/10/2017 8:51 PM The status of this report is Signed. Draft = Not yet reviewed or approved by Radiologist. Signed = Reviewed and approved by Radiologist. Laboratory Results Test 12/10/17 19:30 Influenza Type A (RT-PCR) Neg for Influ A (NEG) Influenza Type B (RT-PCR) Neg for Influ B (NEG) Medications Administered Medications (Trade) Dose Ordered Sig/Liane Route Start Time Stop Time Status Last Admin Dose Admin Acetaminophen (Tylenol Tab) 1,000 mg NOW STAT PO 12/10/17 19:31 12/10/17 19:32 DC 12/10/17 19:41 1,000 MG Ibuprofen (Motrin Tab) 600 mg ONE STAT PO 12/10/17 19:31 12/10/17 19:32 DC 12/10/17 19:41 600 MG Amoxicillin/ Clavulanate Potassium (Augmentin Tab) 875 mg NOW ONCE PO 12/10/17 21:15 12/10/17 21:16 DC 12/10/17 21:36 875 MG Prednisone (PredniSONE TAB) 60 mg NOW STAT PO 12/10/17 21:06 12/10/17 21:07 DC 12/10/17 21:35 60 MG Amoxicillin/ Clavulanate Potassium (Augmentin 875MG Home Pack) 1 homepack UD ONCE PO 12/10/17 21:30 12/10/17 21:31 DC 12/10/17 21:35 1 HOMEPACK Prednisone (PredniSONE TAB) 60 mg NOW STAT PO 12/10/17 21:28 12/10/17 21:29 DC 12/10/17 21:35 60 MG ED Course The patient was seen and examined Imaging was performed She was given Tylenol and Motrin. She was also given a dose of Decadron and Augmentin. Upon reevaluation, the patient was resting comfortably in bed We reviewed her workup. She voiced understanding. Discharge instructions were reviewed, and she was discharged in good condition Medical Decision Differential diagnosis: Bronchitis, pneumonia, strep pharyngitis, viral pharyngitis, influenza , sinusitis This patient is a 62-year-old female that presents to the emergency department complaining of sinus congestion and productive cough for approximately 1 week. She is also complaining of fever. On exam, she was mildly acutely ill. She had some tenderness over his sinuses. Her lungs sounded clear. She was nontoxic in appearance. She did not have any nuchal rigidity. I did not find blood work necessary. The patient was negative for influenza. Chest x-ray is negative for pneumonia. I believe she likely has a sinusitis. She'll be treated with antibiotics in addition to steroids. She will also be given a short course of cough suppressant. She was encouraged to follow up closely with her primary care physician, and will return here with any new or worsening symptoms. This chart was completed in part utilizing [employer] Speech Voice Recognition software. Attempts were made to minimize the grammatical errors, random word insertions, pronoun errors and incomplete sentences. Any formal questions or concerns about the content, text or information contained within the body of this dictation should be directly addressed to the provider for clarification. Impression Primary Impression: Sinusitis Departure Information Dispostion Home / Self-Care Condition GOOD Prescriptions Hydrocodone W/ Homatropine (HYCODAN 5/1.5MG 5 ML) 1 Syp Syp 5-10 ML PO Q4H Y for Cough, #200 ML Prov: Teresa Soriano PA-C 12/10/17 Amoxicillin & Pot Clavulanate (Augmentin 875-125 mg) 1 Tab Tab 1 TAB PO BID, #19 TAB Prov: Teresa Soriano PA-C 12/10/17 Prednisone (Prednisone) 50 Mg Tab 50 MG PO DAILY for 4 Days, #4 TAB Prov: Teresa Soriano PA-C 12/10/17 Referrals Angelina Hobbs C.R.N.P (PCP) Patient Instructions ED Sinusitis Abx Tx, My [facility] Additional Instructions You have been evaluated in the emergency department for fever, cough and congestion. This is likely due to sinusitis. Chest x-ray did not show any signs of pneumonia. An influenza swab was also performed, and negative. Please take entire course of antibiotics Please take entire course of prednisone Please stay well hydrated. Increase fluid intake over the next several days Ibuprofen 800 mg and/or Tylenol 1000 mg every 8 hours for pain/fever You may also alternate these medications for more effective pain relief: Ibuprofen --4 HRS--> Tylenol --4 HRS--> ibuprofen --4 HRS--> Tylenol .... These follow up with your primary care physician as soon as possible. Call Tuesday for a follow-up appointment. Do not hesitate to return to the emergency department with any new, worsening or concerning symptoms; especially, severe headache, fever greater than 104F or difficulty breathing
--- NOTE | 2017-12-10 20:53 | DIAGNOSTIC IMAGING REPORT ---
CHEST 2 VIEWS ROUTINE HISTORY: productive cough, fever COMPARISON: Chest 07/31/2016. FINDINGS: The lungs are clear. Cardiac silhouette is normal in size. No pleural effusions. No pneumothorax. IMPRESSION: No acute process. Electronically signed by: Jose Caban M.D. 12/10/2017 8:52 PM Dictated Date/Time: 12/10/2017 8:51 PM
[2017-12-10 20:57] LABS: INFLUENZA A PCR Neg for Influ A (NEG); INFLUENZA B PCR Neg for Influ B (NEG)
[2017-12-10] MEDS ORDERED: PRED50TA PO (21:08)
[2017-12-10] MEDS ORDERED: AMOX875T PO (21:08)
[2017-12-10] MEDS ORDERED: AMOXICILLIN/CLAVULANATE TAB 875 MG TAB PO ONE (21:15)
[2017-12-10] MEDS ORDERED: AMIT25TA9 PO (21:27)
[2017-12-10] MEDS ORDERED: AMOXICIL/CLAVU 875MG HOME PACK PO ONE (21:30)
[2017-12-10] MEDS ORDERED: HYDR5SYP11 PO (21:30)
[2017-12-10 21:40] VITALS: BP 129/83; PULSE 79; O2SAT 98
== END 2017-12-10 21:41 | disposition home or self-care (01) ==
LOC: C.EDB 18:59 → C.EDC 21:41
DX: J32.9 Chronic sinusitis, unspecified (principal); F32.9 Major depressive disorder, single episode, unspecified; I25.2 Old myocardial infarction; Z86.73 Personal history of transient ischemic attack (TIA), and cerebral infarction without residual deficits; Z86.718 Personal history of other venous thrombosis and embolism; Z90.710 Acquired absence of both cervix and uterus; Z90.89 Acquired absence of other organs; Z83.3 Family history of diabetes mellitus; Z79.82 Long term (current) use of aspirin; Z79.899 Other long term (current) drug therapy

== ENCOUNTER → 2018-01-20 | Outpatient (CLI) | payer OTHER ==
[~2018-01-20] MED LIST changes: +AMIT25TA9 PO; +GABA-1220 PO; -GABA1CAP5 PO; -GNTOPO OP; -RANI150T3 PO
[2018-01-20 14:13] LABS: BLOOD UREA NITROGEN 11 mg/dl (7-18); CALCIUM 9.1 mg/dl (8.5-10.1); CARBON DIOXIDE 27 mmol/L (21-32); CHOLESTEROL 306 mg/dl (0-200); CREATININE 0.83 mg/dl (0.60-1.20); GLUCOSE 98 mg/dl (70-99); POTASSIUM 3.7 mmol/L (3.5-5.1); SODIUM 134 mmol/L (136-145)
[2018-01-20 14:17] LABS: LDL CHOLESTEROL CALCULATED 215 mg/dl
== END | disposition home or self-care (01) ==
LOC: C.LABPVFM 08:31
PROVIDERS: ATTEND Nurse Practitioner
DX: E78.00 Pure hypercholesterolemia, unspecified (principal); G45.9 Transient cerebral ischemic attack, unspecified

== ENCOUNTER 2018-01-28 16:48 | Observation (INO) | payer OTHER ==
[~2018-01-28] VITALS: Ht 160 cm; Wt 74.1 kg
[2018-01-28] MEDS ORDERED: ASPIRIN 81 MG CHEW PO STA (17:34)
[2018-01-28] MEDS ORDERED: ONDANSETRON INJ 2 MG/ML 2 ML VIAL IV STA (17:34)
--- NOTE | 2018-01-28 17:37 | EMERGENCY ROOM VISIT NOTE ---
History Report prepared by Jairo: Justina Workman Under the Supervision of: Dr. Urbano Paula M.D. First contact with patient: 17:28 Chief Complaint: CHEST PAIN Stated Complaint: SEVERE CHEST PAIN,CONSTIPATION Nursing Triage Summary: Constipated x3 weeks, last night finally moved bowels. This afternoon developed CP radiating to her back that feels "like a gas bubble". Hx [place]. Also c/o dyspnea that is worse with ambulation. History of Present Illness The patient is a 62 year old female who presents to the Emergency Room with complaints of chest pain beginning this afternoon. She rates the pain at a 9/10 and describes it as a sharp pain. The patient also reports having nausea, shortness of breath, and sweating. The patient reports that walking and bending over exacerbates her pain. The patient reports having constipation over the last 3 weeks and states that her abdomen feels full, but states that she has been urinating normally. The patient reports a history of a mini heart attack almost 30 years ago and states that she has had 4 strokes. She reports that she has hypertension and hyperlipidemia, but denies a history of diabetes. The patient states that she is not a smoker and has not had a recent stress test. Source of History: patient Onset: this afternoon Position: chest Symptom Intensity: rated at a 9/10 Quality: sharp Modifying Factors (Worsening): movement (walking, bending over ) Associated Symptoms: + diaphoresis, + SOB, + nausea Review of Systems See HPI for pertinent positives & negatives. A total of 10 systems reviewed and were otherwise negative. Past Medical & Surgical Medical Problems: (1) Anxiety State Nos (2) Appendectomy (3) CVA (cerebral vascular accident) (4) Cystocele (5) Depressive Disorder Nec (6) Ectopic (7) Facial paresthesia (8) Hx-Venous Thrombosis&Embolism (9) Hyperlipidemia (10) Hypertension (11) Hysterectomy (12) Irritable Bowel Syndrome (13) Migraine Unspecified W/O Intractable Migraine (14) Mitral Valve Disorder (15) Old Myocardial Infarct (16) Paresthesia of both lower extremities (17) Pure Hypercholesterolem (18) RECTOCELE (19) Removal of ovarian cyst (20) Restless Legs Syndrome Family History Diabetes mellitus FHx: heart disease Social History Smoking Status: Never Smoker Drug Use: none Marital Status: Occupation Status: employed Current/Historical Medications Scheduled Amitriptyline Hcl (Elavil), 25 MG PO HS Aspirin (Aspirin Adult Low Dose), 81 MG PO DAILY Gabapentin (Neurontin), 600 MG PO TID Levothyroxine Sodium (Synthroid), 50 MCG PO DAILY Magnesium Oxide (Mag-Ox), 400 MG PO DAILY Melatonin (Melatonin Maximum Strengt), 10 MG PO HS Riboflavin (Riboflavin), 400 MG PO DAILY Valacyclovir (Valtrex), 500 MG PO HS Venlafaxine Hcl (Effexor), 75 MG PO QAM Venlafaxine Hcl (Effexor Extended Rel), 150 MG PO QAM Verapamil (Calan), 120 MG PO HS Scheduled PRN Fluticasone Propionate (Nasal) (Flonase Allergy Relief), 1 SPRAY DENA BID PRN for Allergic Reaction Lorazepam (Lorazepam), 0.5-1 MG PO HS PRN for Sleep Lorazepam (Ativan), 0.5 MG PO DAILY PRN for Anxiety Ondansetron Hcl (Zofran), 4 MG PO Q8 PRN for Nausea Allergies Coded Allergies: Erythromycin (Verified Allergy, Unknown, UNKNOWN, 01/28/18) Macrolides (Verified Adverse Reaction, Unknown, STOMACH UPSET, 01/28/18) Physical Exam Vital Signs Date Time Temp Pulse Resp B/P (MAP) Pulse Ox O2 Delivery O2 Flow Rate FiO2 01/28/18 18:49 80 18 129/80 98 Room Air 01/28/18 17:51 69 01/28/18 16:53 36.6 70 18 120/78 96 Room Air Physical Exam GENERAL: Patient is in no acute distress. HEENT: No acute trauma, normocephalic atraumatic, mucous membranes moist, no nasal congestion, no scleral icterus. NECK: No stridor, no adenopathy, no meningismus, trachea is midline. LUNGS: Clear to auscultation bilaterally, no wheeze, no rhonchi, breath sounds equal. HEART: 2/6 systolic murmur, regular rate and rhythm Chest: Tender over the anterior mid sternum. ABDOMEN: Soft, tender primarily in epigastrium, bowel sounds positive, no hernias, no peritonitis. Some bloating noted. EXTREMITIES: No cyanosis or edema, full range of motion of all the joints without pain or difficulty, no signs for acute trauma. NEUROLOGIC: Oriented x 3, no acute motor or sensory deficits, no focal weakness. SKIN: No rash, no jaundice, no diaphoresis. Medical Decision & Procedures ER Provider Diagnostic Interpretation: Radiology results as stated below per my review and radiologist interpretation: CHEST ONE VIEW PORTABLE CLINICAL HISTORY: ABDOMINAL PAIN/GI pain COMPARISON STUDY: 12/10/2017 FINDINGS: The bones soft tissues and hemidiaphragms are normal. The cardiomediastinal silhouette is normal. The lungs are clear. The pulmonary vasculature is normal. IMPRESSION: Negative chest. The above report was generated using voice recognition software. It may contain grammatical, syntax or spelling errors. Electronically signed by: Adithya George M.D. 01/28/2018 5:48 PM Dictated Date/Time: 01/28/2018 5:48 PM ABD/PELVIS NO IV OR ORAL CONT CT DOSE: 451.05 mGy.cm HISTORY: Pain ABD PAIN, POSSIBLE OBSTRUCTION, NO CONTRAST TECHNIQUE: Multiaxial CT images of the abdomen and pelvis were performed without contrast. A dose lowering technique was utilized adhering to the principles of ALARA. COMPARISON STUDY: 10/02/2013 FINDINGS: The lung bases are clear. The unenhanced liver, spleen, gallbladder, pancreas, kidneys, and adrenal glands are within normal limits. No bowel wall thickening or obstruction. The pelvic organs are unremarkable. No suspicious lytic or blastic osseous lesions. IMPRESSION: No significant abnormality identified within the abdomen or pelvis. The above report was generated using voice recognition software. It may contain grammatical, syntax or spelling errors. Electronically signed by: Adithya George M.D. 01/28/2018 6:46 PM Dictated Date/Time: 01/28/2018 6:44 PM Laboratory Results 01/28/18 18:05 Red Blood Count 4.01, Mean Corpuscular Volume 88.5, Mean Corpuscular Hemoglobin 30.2, Mean Corpuscular Hemoglobin Concent 34.1, Mean Platelet Volume 8.5, Neutrophils (%) (Auto) 58.7, Lymphocytes (%) (Auto) 28.3, Monocytes (%) (Auto) 9.6, Eosinophils (%) (Auto) 2.5, Basophils (%) (Auto) 0.6, Neutrophils # (Auto) 3.98, Lymphocytes # (Auto) 1.92, Monocytes # (Auto) 0.65, Eosinophils # (Auto) 0.17, Basophils # (Auto) 0.04 01/28/18 18:05 Test 01/28/18 18:05 01/28/18 18:50 White Blood Count 6.78 K/uL (4.8-10.8) Red Blood Count 4.01 M/uL (4.2-5.4) Hemoglobin 12.1 g/dL (12.0-16.0) Hematocrit 35.5 % (37-47) Mean Corpuscular Volume 88.5 fL (80-100) Mean Corpuscular Hemoglobin 30.2 pg (25-34) Mean Corpuscular Hemoglobin Concent 34.1 g/dl (32-36) Platelet Count 252 K/uL (130-400) Mean Platelet Volume 8.5 fL (7.4-10.4) Neutrophils (%) (Auto) 58.7 % Lymphocytes (%) (Auto) 28.3 % Monocytes (%) (Auto) 9.6 % Eosinophils (%) (Auto) 2.5 % Basophils (%) (Auto) 0.6 % Neutrophils # (Auto) 3.98 K/uL (1.4-6.5) Lymphocytes # (Auto) 1.92 K/uL (1.2-3.4) Monocytes # (Auto) 0.65 K/uL (0.11-0.59) Eosinophils # (Auto) 0.17 K/uL (0-0.5) Basophils # (Auto) 0.04 K/uL (0-0.2) RDW Standard Deviation 44.8 fL (36.4-46.3) RDW Coefficient of Variation 13.7 % (11.5-14.5) Immature Granulocyte % (Auto) 0.3 % Immature Granulocyte # (Auto) 0.02 K/uL (0.00-0.02) Anion Gap 6.0 mmol/L (3-11) Est Creatinine Clear Calc Drug Dose 64.0 ml/min Estimated GFR () 81.1 Estimated GFR (Non- 70.0 BUN/Creatinine Ratio 14.8 (10-20) Calcium Level 8.7 mg/dl (8.5-10.1) Magnesium Level 2.4 mg/dl (1.8-2.4) Total Bilirubin 0.3 mg/dl (0.2-1) Aspartate Amino Transf (AST/SGOT) 20 U/L (15-37) Alanine Aminotransferase (ALT/SGPT) 38 U/L (12-78) Alkaline Phosphatase 137 U/L (45-117) Troponin I < 0.015 ng/ml (0-0.045) Total Protein 7.6 gm/dl (6.4-8.2) Albumin 4.1 gm/dl (3.4-5.0) Globulin 3.5 gm/dl (2.5-4.0) Albumin/Globulin Ratio 1.2 (0.9-2) Lipase 73 U/L (73-393) Thyroid Stimulating Hormone (TSH) 1.370 uIu/ml (0.300-4.500) Free Thyroxine 1.08 ng/dl (0.80-1.60) Urine Color YELLOW Urine Appearance CLEAR (CLEAR) Urine pH 7.5 (4.5-7.5) Urine Specific [place] 1.007 (1.000-1.030) Urine Protein NEG (NEG) Urine Glucose (UA) NEG (NEG) Urine Ketones NEG (NEG) Urine Occult Blood NEG (NEG) Urine Nitrite NEG (NEG) Urine Bilirubin NEG (NEG) Urine Urobilinogen NEG (NEG) Urine Leukocyte Esterase TRACE (NEG) Urine WBC (Auto) 1-5 /hpf (0-5) Urine RBC (Auto) 0-4 /hpf (0-4) Urine Hyaline Casts (Auto) 0 /lpf (0-5) Urine Epithelial Cells (Auto) 0-5 /lpf (0-5) Urine Bacteria (Auto) NEG (NEG) Laboratory results reviewed by me. Medications Administered Medications (Trade) Dose Ordered Sig/Liane Route Start Time Stop Time Status Last Admin Dose Admin Ondansetron HCl (Zofran Inj) 4 mg NOW STAT IV 18 17:34 18 17:37 DC 18 18:23 4 MG Aspirin (Aspirin Chew) 324 mg NOW STAT PO 01/28/18 17:34 18 17:37 DC 18 18:23 324 MG ECG Per My Interpretation Rate (beats per minute): 71 Rhythm: normal sinus Findings: other (some diffuse non-specific ST change, no ST elevation) Comparison ECG Date: no prior available ED Course 1729: The patient was evaluated in room B11B. A complete history and physical exam was performed. 1734: Ordered Aspirin 324 mg PO, Zofran Inj 4 mg IV. 1940: Upon reexamination the patient is resting. I discussed results and treatment plan with the patient. She verbalizes agreement and understanding. I spoke with Dr. Prather of the [facility] hospitalist service. We discussed the patient's results and findings. The patient will be evaluated by her for further management. Medical Decision The patient is a 62 year old female who presents to the ED with complaints of chest pain. Differential diagnoses considered include bowel obstruction, constipation, pancreatitis, reflux, ulcer, pneumonia, and cardiac ischemia. There is no leukocytosis or concerning anemia. No significant electrolyte abnormality, kidney failure or hepatitis. The patient appears to be in a euthyroid state. EKG shows a normal sinus rhythm with some nonspecific ST change, no acute ischemic change. Cardiac enzyme testing 1 is not consistent with acute cardiac injury. Abdominal and pelvis CT does not show bowel obstruction or significant constipation. No acute surgical process by CT. Chest film does not show pneumonia, free air or mediastinal widening. The patient presents with 2 complaints. She has had abdominal bloating and some epigastric pain. More recently, she has noted some chest pain especially, she has noticed some chest pain with exertion which does get better with rest. She has cardiac risk factors. With the patient's age, her complaints, her cardiac risk factors, I did think further cardiac workup was warranted. I spoke to the patient and case management. I discussed the case with the on-call hospitalist. Medication Reconcilliation Current Medication List: was personally reviewed by me Blood Pressure Screening Patient's blood pressure: Normal blood pressure Consults Time Called: 1928 Consulting Physician[facility] Returned Call: 1940 Discussed the patient's case. The patient will be evaluated for further management. Impression Primary Impression: Precordial chest pain Additional Impression: Abdominal distension Scribe Attestation The scribe's documentation has been prepared under my direction and personally reviewed by me in its entirety. I confirm that the note above accurately reflects all work, treatment, procedures, and medical decision making performed by me. Departure Information Dispostion Being Evaluated By Hospitalist Referrals Angelina Hobbs, C.R.N.P (PCP) Patient Instructions My [facility] Problem Qualifiers
--- NOTE | 2018-01-28 17:50 | DIAGNOSTIC IMAGING REPORT ---
CHEST ONE VIEW PORTABLE CLINICAL HISTORY: ABDOMINAL PAIN/GI pain COMPARISON STUDY: 12/10/2017 FINDINGS: The bones soft tissues and hemidiaphragms are normal. The cardiomediastinal silhouette is normal. The lungs are clear. The pulmonary vasculature is normal. IMPRESSION: Negative chest. The above report was generated using voice recognition software. It may contain grammatical, syntax or spelling errors. Electronically signed by: Adithya George M.D. 01/28/2018 5:48 PM Dictated Date/Time: 01/28/2018 5:48 PM
[2018-01-28] MEDS ORDERED: VERA120T15 PO (18:08)
[2018-01-28] MEDS ORDERED: GABA600T PO (18:08)
[2018-01-28 18:21] LABS: BASO % 0.6 %; BASO ABS # 0.04 K/uL (0-0.2); EOS % 2.5 %; EOS ABS # 0.17 K/uL (0-0.5); HEMATOCRIT 35.5 % (37-47); HEMOGLOBIN 12.1 g/dL (12.0-16.0); IG# 0.02 K/uL (0.00-0.02); LYMPH % 28.3 %; LYMPH ABS # 1.92 K/uL (1.2-3.4); MEAN CELL VOLUME 88.5 fL (80-100); MEAN CORPUSCULAR HEMOGLOBIN 30.2 pg (25-34); MEAN CORPUSCULAR HGB CONC 34.1 g/dl (32-36); MEAN PLATELET VOLUME 8.5 fL (7.4-10.4); MONO % 9.6 %; MONO ABS # 0.65 K/uL (0.11-0.59); NEUT % 58.7 %; NEUT ABS # 3.98 K/uL (1.4-6.5); PLATELET COUNT 252 K/uL (130-400); RED CELL DISTRIBUTION WIDTH CV 13.7 % (11.5-14.5); RED CELL DISTRIBUTION WIDTH SD 44.8 fL (36.4-46.3); WHITE BLOOD COUNT 6.78 K/uL (4.8-10.8)
[2018-01-28 18:38] LABS: ALBUMIN 4.1 gm/dl (3.4-5.0); ALT/SGPT 38 U/L (12-78); BLOOD UREA NITROGEN 13 mg/dl (7-18); CALCIUM 8.7 mg/dl (8.5-10.1); CARBON DIOXIDE 31 mmol/L (21-32); CREATININE 0.89 mg/dl (0.60-1.20); GLUCOSE 90 mg/dl (70-99); LIPASE 73 U/L (73-393); POTASSIUM 3.3 mmol/L (3.5-5.1); SODIUM 134 mmol/L (136-145)
[2018-01-28 18:47] LABS: ALKALINE PHOSPHATASE 137 U/L (45-117); AST/SGOT 20 U/L (15-37); TOTAL PROTEIN 7.6 gm/dl (6.4-8.2)
--- NOTE | 2018-01-28 18:48 | DIAGNOSTIC IMAGING REPORT ---
ABD/PELVIS NO IV OR ORAL CONT CT DOSE: 451.05 mGy.cm HISTORY: Pain ABD PAIN, POSSIBLE OBSTRUCTION, NO CONTRAST TECHNIQUE: Multiaxial CT images of the abdomen and pelvis were performed without contrast. A dose lowering technique was utilized adhering to the principles of ALARA. COMPARISON STUDY: 10/02/2013 FINDINGS: The lung bases are clear. The unenhanced liver, spleen, gallbladder, pancreas, kidneys, and adrenal glands are within normal limits. No bowel wall thickening or obstruction. The pelvic organs are unremarkable. No suspicious lytic or blastic osseous lesions. IMPRESSION: No significant abnormality identified within the abdomen or pelvis. The above report was generated using voice recognition software. It may contain grammatical, syntax or spelling errors. Electronically signed by: Adithya George M.D. 01/28/2018 6:46 PM Dictated Date/Time: 01/28/2018 6:44 PM
[2018-01-28] MEDS ORDERED: POLYETHYLENE (MIRALAX) 17 GM PACK PO PRN (20:00)
[2018-01-28] MEDS ORDERED: ONDANSETRON 4 MG TAB PO PRN (20:00)
[2018-01-28] MEDS ORDERED: ACETAMINOPHEN 325 MG TAB PO PRN (20:00)
[2018-01-28] MEDS ORDERED: NITROGLYCERIN 0.4 MG SL PER TAB CHARGE SL PRN (20:00)
[2018-01-28] MEDS ORDERED: ONDANSETRON INJ 2 MG/ML 2 ML VIAL IV PRN (20:00)
[2018-01-28] MEDS ORDERED: MAGNESIUM HYDROXIDE SUSP 30 ML UDC PO PRN (20:00)
[2018-01-28] MEDS ORDERED: MoRPHine SULFATE 2 MG/ML CARP IV PRN (20:00)
[2018-01-28] MEDS ORDERED: ALUMINUM/MAGNESIUM/SIMETH (MAALOX MAX) 30 ML UDC PO PRN (20:00)
[2018-01-28] MEDS ORDERED: LORAZEPAM 0.5 MG TAB PO PRN (20:00)
[2018-01-28] MEDS ORDERED: FLUTICASONE PROPIONATE NA SPR 16 GM BTL NAE PRN (20:00)
--- NOTE | 2018-01-28 20:10 | History and Physical ---
History & Physical Date & Time of Service: Jan 28, 2018 at 20:10 Chief Complaint: Severe Chest Pain,Constipation Primary Care Physician: Angelina Hobbs C.R.N.P History of Present Illness This is a 62 y/o F who presents with persistent chest pain that started 2 days ago. She describes it as a sharp pain and rates it a 9/10. She does also have some nausea and shortness of breath. Pain and shortness of breath is worse with exertion. She denies a history of smoking. She does have a hyperlipidemia but does not tolerate statins. Therefore her PCP no longer monitors her cholesterol. She does have a family history of CAD. She has a personal history of 3 strokes, with minimal residual deficits. Denies h/o diabetes. She also reports that she has had significant constipation over the last 3 weeks including bloating. She did see her PCP and was advised to take stool softeners. She did have a small bowel movement yesterday. She discloses that she's under a lot of stress because her is actively dying. He has a large aneurysm that can rupture at any time and was discharged from [facility] 2 days ago. Her was given 2 days to live and the "wait" has been stressful. Past Medical/Surgical History Medical Problems: (1) Anxiety State Nos (2) Appendectomy (3) Ataxia (4) CVA (cerebral vascular accident) (5) Cystocele (6) Depressive Disorder Nec (7) Ectopic (8) Facial paresthesia (9) Headache (10) Headache (11) Headache, migraine, intractable (12) Hx-Venous Thrombosis&Embolism (13) Hyperlipidemia (14) Hypertension (15) Hysterectomy (16) Irritable Bowel Syndrome (17) Left sided chest pain (18) Migraine (19) Migraine Unspecified W/O Intractable Migraine (20) Mitral Valve Disorder (21) Old Myocardial Infarct (22) Paresthesia of both lower extremities (23) Precordial chest pain (24) Pure Hypercholesterolem (25) RECTOCELE (26) Removal of ovarian cyst (27) Restless Legs Syndrome (28) Sinusitis (29) Sinusitis (30) TIA (transient ischemic attack) (31) Vomiting Family History Diabetes mellitus FHx: heart disease Social History Smoking Status: Never Smoker Drug Use: none Marital Status: Housing status: lives with family Occupational Status: employed Immunizations History of Influenza Vaccine: No History of Tetanus Vaccine?: Yes Tetanus Immunization Date: Feb 24, 2004 History of Pneumococcal: No History of Hepatitis B Vaccine: No Allergies Coded Allergies: Erythromycin (Verified Allergy, Unknown, UNKNOWN, 01/28/18) Macrolides (Verified Adverse Reaction, Unknown, STOMACH UPSET, 01/28/18) Home Medications Scheduled Amitriptyline Hcl (Elavil), 25 MG PO HS Aspirin (Aspirin Adult Low Dose), 81 MG PO DAILY Gabapentin (Neurontin), 600 MG PO TID Levothyroxine Sodium (Synthroid), 50 MCG PO DAILY Magnesium Oxide (Mag-Ox), 400 MG PO DAILY Melatonin (Melatonin Maximum Strengt), 10 MG PO HS Riboflavin (Riboflavin), 400 MG PO DAILY Valacyclovir (Valtrex), 500 MG PO HS Venlafaxine Hcl (Effexor), 75 MG PO QAM Venlafaxine Hcl (Effexor Extended Rel), 150 MG PO QAM Verapamil (Calan), 120 MG PO HS Scheduled PRN Fluticasone Propionate (Nasal) (Flonase Allergy Relief), 1 SPRAY DENA BID PRN for Allergic Reaction Lorazepam (Lorazepam), 0.5-1 MG PO HS PRN for Sleep Lorazepam (Ativan), 0.5 MG PO DAILY PRN for Anxiety Ondansetron Hcl (Zofran), 4 MG PO Q8 PRN for Nausea Review of Systems Constitutional: No fever, No chills, No sweats Eyes: No worsening of vision ENT: No hearing loss Respiratory: + shortness of breath, + dyspnea on exertion, No cough, No sputum Cardiovascular: No chest pain Abdomen: + pain, + nausea, + constipation Musculoskeletal: + joint pain, + swelling, No calf pain Genitourinary - Female: No dysuria, No urinary frequency, No urinary urgency Physical Exam Vital Signs Date Time Temp Pulse Resp B/P (MAP) Pulse Ox O2 Delivery O2 Flow Rate FiO2 01/28/18 18:49 80 18 129/80 98 Room Air 01/28/18 17:51 69 01/28/18 16:53 36.6 70 18 120/78 96 Room Air General Appearance: no apparent distress Head: normocephalic Eyes: normal inspection, PERRL, EOMI ENT: hearing grossly normal Respiratory/Chest: lungs clear, normal breath sounds, no respiratory distress, no accessory muscle use Cardiovascular: regular rate, rhythm, no murmur, normal peripheral pulses Abdomen/GI: normal bowel sounds, non tender, soft Back: no CVA tenderness Extremities/Musculoskelatal: no calf tenderness, + pedal edema (trace) Neurologic/Psych: no motor/sensory deficits, alert, normal reflexes, + depressed affect Diagnostics Laboratory Results Results Past 24 Hours Test 01/28/18 18:05 01/28/18 18:50 Range/Units White Blood Count 6.78 4.8-10.8 K/uL Red Blood Count 4.01 4.2-5.4 M/uL Hemoglobin 12.1 12.0-16.0 g/dL Hematocrit 35.5 37-47 % Mean Corpuscular Volume 88.5 80-100 fL Mean Corpuscular Hemoglobin 30.2 25-34 pg Mean Corpuscular Hemoglobin Concent 34.1 32-36 g/dl Platelet Count 252 130-400 K/uL Mean Platelet Volume 8.5 7.4-10.4 fL Neutrophils (%) (Auto) 58.7 % Lymphocytes (%) (Auto) 28.3 % Monocytes (%) (Auto) 9.6 % Eosinophils (%) (Auto) 2.5 % Basophils (%) (Auto) 0.6 % Neutrophils # (Auto) 3.98 1.4-6.5 K/uL Lymphocytes # (Auto) 1.92 1.2-3.4 K/uL Monocytes # (Auto) 0.65 0.11-0.59 K/uL Eosinophils # (Auto) 0.17 0-0.5 K/uL Basophils # (Auto) 0.04 0-0.2 K/uL RDW Standard Deviation 44.8 36.4-46.3 fL RDW Coefficient of Variation 13.7 11.5-14.5 % Immature Granulocyte % (Auto) 0.3 % Immature Granulocyte # (Auto) 0.02 0.00-0.02 K/uL Sodium Level 134 136-145 mmol/L Potassium Level 3.3 3.5-5.1 mmol/L Chloride Level 97 98-107 mmol/L Carbon Dioxide Level 31 21-32 mmol/L Anion Gap 6.0 3-11 mmol/L Blood Urea Nitrogen 13 7-18 mg/dl Creatinine 0.89 0.60-1.20 mg/dl Est Creatinine Clear Calc Drug Dose 64.0 ml/min Estimated GFR () 81.1 Estimated GFR (Non- 70.0 BUN/Creatinine Ratio 14.8 10-20 Random Glucose 90 70-99 mg/dl Calcium Level 8.7 8.5-10.1 mg/dl Magnesium Level 2.4 1.8-2.4 mg/dl Total Bilirubin 0.3 0.2-1 mg/dl Aspartate Amino Transf (AST/SGOT) 20 15-37 U/L Alanine Aminotransferase (ALT/SGPT) 38 12-78 U/L Alkaline Phosphatase 137 45-117 U/L Troponin I < 0.015 0-0.045 ng/ml Total Protein 7.6 6.4-8.2 gm/dl Albumin 4.1 3.4-5.0 gm/dl Globulin 3.5 2.5-4.0 gm/dl Albumin/Globulin Ratio 1.2 0.9-2 Lipase 73 73-393 U/L Thyroid Stimulating Hormone (TSH) 1.370 0.300-4.500 uIu/ml Free Thyroxine 1.08 0.80-1.60 ng/dl Urine Color YELLOW Urine Appearance CLEAR CLEAR Urine pH 7.5 4.5-7.5 Urine Specific [place] 1.007 1.000-1.030 Urine Protein NEG NEG Urine Glucose (UA) NEG NEG Urine Ketones NEG NEG Urine Occult Blood NEG NEG Urine Nitrite NEG NEG Urine Bilirubin NEG NEG Urine Urobilinogen NEG NEG Urine Leukocyte Esterase TRACE NEG Urine WBC (Auto) 1-5 0-5 /hpf Urine RBC (Auto) 0-4 0-4 /hpf Urine Hyaline Casts (Auto) 0 0-5 /lpf Urine Epithelial Cells (Auto) 0-5 0-5 /lpf Urine Bacteria (Auto) NEG NEG Impression Assessment and Plan This is a 62 y/o F who presents with chest pain. DDx includes, Angina (atypical) , Gerd, Pneumonia, Anxiety etc Chest pain r/o Initial troponin negative, trend x [address] abd/ pelvis unremarkable Dobutamine Stress echo Anxiety/depression/chronic pain Continue amitriptyline, gabapentin, effexor Ativan 1mg PRN hs HTN Verapamil Hypothyroid Levothyroxine DVT proph Heparin Sq 5000 u Code: Full Resident Physician Supervision Note: Pt evaluated independently. I discussed the case with the resident and agree with the findings and plan as documented in the note. Any exceptions or clarifications are listed here: 62 y/o F Hx CVA, HTN, HPL, hypothyroid. Presents with acute central CP. Initial labs, EKG do not support ischemia - pain resolved in ER and recurred - more mildly - when she ate something. OE AAO x 3 S1,2 R CTAB NT, ND, BS+ No CCE P: Monitor on tele - serial enzymes - ASA provided - NTG/Morphine PRN presumably she is statin-intolerant Cont Verapamil for HTN Cont Synthroid Would address GI etiology if she rules out Documented By: Moises Grier Resuscitation Status VTE Prophylaxis Will order VTE Prophylaxis: Yes
[2018-01-28 20:21] VITALS: BP 145/83; PULSE 65; TEMP 36.4; O2SAT 95; Ht 160 cm; Wt 74.1 kg
[2018-01-28] MEDS ORDERED: IV FLUIDS COMPLETED PRN (20:30)
[2018-01-28 20:33] VITALS: O2SAT 98
[2018-01-28] MEDS ORDERED: VERAPAMIL 120 MG PO SCH (21:00)
[2018-01-28] MEDS: AMITRIPTYLINE HCL 25 MG TAB PO SCH (21:38)
[2018-01-28] MEDS: GABAPENTIN 600 MG TAB PO SCH (21:38)
[2018-01-28] MEDS: LORAZEPAM 0.5 MG TAB PO PRN (21:39)
[2018-01-28] MEDS ORDERED: VERAPAMIL HCL 120 MG TABCR PO ONE (22:00)
[2018-01-28] MEDS: HEPARIN SOD 5000 UNIT/0.5 ML CARP SQ SCH (22:03)
[2018-01-28 23:47] VITALS: BP 111/71; PULSE 68; TEMP 36.7; O2SAT 95
[2018-01-29 02:33] LABS: BLOOD UREA NITROGEN 13 mg/dl (7-18); CALCIUM 8.9 mg/dl (8.5-10.1); CARBON DIOXIDE 30 mmol/L (21-32); CREATININE 0.89 mg/dl (0.60-1.20); GLUCOSE 103 mg/dl (70-99); POTASSIUM 3.3 mmol/L (3.5-5.1); SODIUM 137 mmol/L (136-145)
[2018-01-29 02:38] LABS: CHOLESTEROL 253 mg/dl (0-200); LDL CHOLESTEROL CALCULATED 167 mg/dl
[2018-01-29 03:05] VITALS: BP 99/63; PULSE 68; TEMP 36.5; O2SAT 93
[2018-01-29 07:19] VITALS: BP 109/67; PULSE 66; TEMP 36.7; O2SAT 93
[2018-01-29] MEDS: VENLAFAXINE HCL XR 150 MG CAPXR PO SCH (07:53)
[2018-01-29] MEDS: LEVOTHYROXINE 50 MCG TAB PO SCH (07:53)
[2018-01-29] MEDS: GABAPENTIN 600 MG TAB PO SCH ×3 (07:53→20:46)
[2018-01-29] MEDS: VENLAFAXINE HCL XR 75 MG CAPXR PO SCH (07:53)
[2018-01-29] MEDS: HEPARIN SOD 5000 UNIT/0.5 ML CARP SQ SCH ×2 (07:58→20:49)
[2018-01-29] MEDS: ASPIRIN 81 MG ECTAB PO SCH (08:58)
[2018-01-29] MEDS: MAGNESIUM OXIDE 400 MG TAB PO SCH (08:58)
[2018-01-29] MEDS ORDERED: VENLAFAXINE HCL 50 MG TAB PO SCH (09:00)
[2018-01-29 11:38] VITALS: BP 122/76; PULSE 68; O2SAT 93
[2018-01-29] MEDS ORDERED: POTASSIUM CHLORIDE 10 MEQ TABCR PO STA (13:57)
--- NOTE | 2018-01-29 13:58 | Family Medicine Progress Note ---
Progress Note Date of Service Jan 29, 2018. Subjective Pt evaluation today including: conversation w/ patient, physical exam, chart review, lab review Patient was seen and examined at bedside. Tele was sinus in the 70s and 80s. Pt had another episode of chest pressure this AM when she stood up. She was NPO for a dobutamine stress echo. She was resting comfortably. Stated that she has been stressed recently and the calm hospital room has been good for her . She is hungry. Otherwise no complaints. Constitutional: No fever, No chills, No sweats ENT: No hearing loss Respiratory: No cough, No sputum, No wheezing, No shortness of breath Cardiovascular: + chest pain Abdomen: No pain, No nausea, No vomiting, No diarrhea, No constipation Female : No dysuria Neurologic: No memory loss Psychiatric: No depression symptoms Objective Physical Exam Notes: General Appearance: no apparent distress Head: normocephalic Eyes: normal inspection, PERRL, EOMI ENT: hearing grossly normal Respiratory/Chest: lungs clear, normal breath sounds, no respiratory distress, no accessory muscle use Cardiovascular: regular rate, rhythm, no murmur, normal peripheral pulses Abdomen/GI: normal bowel sounds, non tender, soft Back: no CVA tenderness Extremities/Musculoskelatal: no calf tenderness, 1+ pedal edema Neurologic/Psych: no motor/sensory deficits, alert, normal reflexes, mood is good today. Assessment and Plan 62F with a PMHx of HLD, knee OA p/w a two day history of abrupt onset substernal chest pressure. Pt has had a previous cath that was normal. Pt has been under a lot of stress recently with the being diagnosed with a ?leaking AAA and been given a few days to live. Non specific T wave abnormality on EKG. Trops negative x 3. Pt will undergo a dobutamine stress echo on Tuesday. Chest Pain Rule Out Pt has been very stressed recently. Nonspecific EKG Changes. Trops negative x 3. CT abd/ pelvis unremarkable Dobutamine Stress echo on Tuesday (pt could not tolerate exercise stress test due to her knees) EKG tomorrow AM. Anxiety/depression/chronic pain Continue amitriptyline, gabapentin, effexor Ativan 1mg PRN QHS Hypokalemia given 40meq today, will check tomorrow. HTN Normotensive thus far. c/w Verapamil Pt states she takes Dyazide as well for HTN, she has been normotensive thus far so will hold. HLD Statin Intolerant. 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 FULL CODE Resident Involvement: Resident Care Provided Care Provided: Adult Hospital Medicine Reviewed: Pt Seen/Exam by Me History chest pain still present off and on in the mid-sternal area lasting Constitutional: denies: fever Respiratory: negative: short of breath General Appearance: no apparent distress Respiratory: lungs clear, no respiratory distress Cardiovascular: regular rate, rhythm 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: alert, oriented x 3 Skin Characteristics: warm/dry Assessment/Plan Resident Physician Supervision Note: I independently interviewed and examined the patient and verified the gonzalez history and physical, reviewed labs and image studies, discussed the case with the resident Dr. Bishop and agree with the findings and care plan.
[2018-01-29 14:54] VITALS: BP 125/69; PULSE 69; TEMP 35.8; O2SAT 91
[2018-01-29 19:05] VITALS: BP 127/55; PULSE 66; TEMP 36.6; O2SAT 92
[2018-01-29] MEDS: VERAPAMIL HCL 120 MG TABCR PO SCH (20:46)
[2018-01-29] MEDS: AMITRIPTYLINE HCL 25 MG TAB PO SCH (20:46)
[2018-01-29] MEDS: LORAZEPAM 0.5 MG TAB PO PRN (20:53)
[2018-01-29] MEDS ORDERED: TAMSULOSIN HCL 0.4 MG CAP PO SCH (21:00)
[2018-01-30] VITALS (7 sets, daily range): BP systolic 95–147; BP diastolic 55–82; PULSE 61–72; TEMP 36.4–37; O2SAT 91–96
[2018-01-30 06:59] LABS: HEMATOCRIT 35.1 % (37-47); HEMOGLOBIN 11.3 g/dL (12.0-16.0); MEAN CELL VOLUME 90.5 fL (80-100); MEAN CORPUSCULAR HEMOGLOBIN 29.1 pg (25-34); MEAN CORPUSCULAR HGB CONC 32.2 g/dl (32-36); MEAN PLATELET VOLUME 8.9 fL (7.4-10.4); PLATELET COUNT 242 K/uL (130-400); RED CELL DISTRIBUTION WIDTH CV 13.6 % (11.5-14.5); RED CELL DISTRIBUTION WIDTH SD 45.4 fL (36.4-46.3); WHITE BLOOD COUNT 3.92 K/uL (4.8-10.8)
[2018-01-30 07:17] LABS: CALCIUM 8.7 mg/dl (8.5-10.1); CREATININE 0.93 mg/dl (0.60-1.20); POTASSIUM 4.6 mmol/L (3.5-5.1)
[2018-01-30] MEDS ORDERED: METOPROLOL TARTRATE 1 MG/ML VIAL ONE ×2 (09:20)
[2018-01-30] MEDS ORDERED: DOBUTamine HCL 12.5 MG/ML 20 ML VIAL ONE (09:20)
[2018-01-30] MEDS ORDERED: ATROPINE SULFATE 0.1 MG/ML 5ML SYR ONE ×2 (09:20→09:21)
--- NOTE | 2018-01-30 10:57 | DOBUTAMINE ECHO ---
*NOTICE TO RECEIVING CONSTITUTION PARTY AGENCY This information is strictly Confidential and protected under [place] law. [place] law prohibits you from making any further disclosure of this information unless further disclosure is expressly permitted by the written consent of the person to whom it pertains or is authorized by law. A general authorization for the release of medical or other information is not sufficient for this purpose. Hospital accepts no responsibility if the information is made available to any other person, INCLUDING THE PATIENT. Interpretation Summary * Name: JUAN LUIS VELASQUEZ Study Date: 01/30/2018 08:35 AM BP: 138/58 mmHg * Patient Location: [facility]\S\N281\S\2 HR: 66 * : 1955 (M/d/yyyy) Gender: Female Height: 63 in * Age: 62 yrs Ethnicity: [place] Weight: 163 lb * Ordering Physician: Estefania Prather * Referring Physician: Self, Referred * Performed By: Roberto Lee RCS * * Reason For Study: Chest Pain * BSA: 1.8 m2 * -- Conclusions -- * Dobutamine Stress Echo: * 1. Negative Dobutamine stress echo for ischemia at 84 % MPHR; cannot rule out ischemic changes at faster heart rates. * 2. Nondiagnostic dobutamine ECG for ischemia as target heart rate was not attained. * 3. Appropriate blood pressure response. * 4. No arrhythmia. * 5. No chest pain reported. * Echo: * 1. Normal left ventricular size and systolic function. EF 65-70%. No regional wall motion abnormalities. No left ventricular hypertrophy. * 2. Mild mitral regurgitation. * 3. Normal estimated right ventricular systolic pressure. Procedure Details * DOBUTAMINE ECHO, CPT#[id number] * ECHO COLOR FLOW, CPT #[id number] * ECHO DOPPLER, CPT #[id number] Left Ventricle * The left ventricle is normal in size. * There is normal left ventricular wall thickness. * Ejection Fraction = 65-70%. * Resting wall motion: Normal. Stress wall motion: Appropriate increase in Left ventricular systolic function and decrease in cavity size. No stress induced segmental wall motion abnormalities. * The left ventricular ejection fraction increases normally with stress. The left ventricular end-systolic cavity size reduces post-stress (normal response). The left ventricular wall motion with stress is normal. Right Ventricle * The right ventricle is normal in size and function. Atria * The left atrial size is normal. * Right atrial size is normal. * There is no evidence of atrial septal defect, but resolution does not allow assessment for a patent foramen ovale. Mitral Valve * The mitral valve is grossly normal. * There is no mitral valve stenosis. * There is mild mitral regurgitation. Tricuspid Valve * The tricuspid valve is not well visualized, but is grossly normal. * There is no tricuspid stenosis. * There is trace tricuspid regurgitation. Aortic Valve * The aortic valve is trileaflet. * No hemodynamically significant valvular aortic stenosis. * Trace aortic regurgitation. Pulmonic Valve * The pulmonary valve is inadequately visualized, but the Doppler data is adequate for interpretation. * Trace pulmonic valvular regurgitation. Great Vessels * The aortic root is normal size. * Ascending aorta of normal dimension * Aortic arch of normal dimension. * Normal pulmonary venous flow pattern. Normal IVC size and inspiratory collapse. Pericardium * There is no pericardial effusion. Stress Parameters * Sinus rhythm at 66 bpm. * Stress ECG: No ST changes. No arrhythmias. * No arrhythmia were noted with stress. * Rest heart rate was '66' BPM. * Rest blood pressure was '138/58' * Maximum heart rate achieved was 134 bpm. * Maximum heart rate was 84 % of maximum age-predicted heart rate. * Maximum blood pressure was '138/58' * Maximum Dobutamine infusion rate was '50' mcg/kg/min. * A total of 1 mg of intravenous Atropine was used to supplement Dobutamine for heart rate response. * Dobutamine infusion was terminated due to achieving target heart rate * A total of 5 mg of IV Metoprolol was administered to reverse Dobutamine-induced tachycardia. MMode 2D Measurements and Calculations IVSd 1.0 cm IVSs 1.3 cm LVIDd 3.8 cm LVIDs 2.3 cm LVPWd 1.0 cm LVPWs 1.3 cm IVS/LVPW 1.0 FS 38.7 % EDV(Teich) 63.2 ml ESV(Teich) 19.1 ml EF(Teich) 69.8 % EDV(cubed) 56.3 ml ESV(cubed) 13.0 ml EF(cubed) 77.0 % % IVS thick 24.8 % % LVPW thick 25.7 % LV mass(C)d 122.1 grams LV mass(C)dI 68.9 grams/m\S\2 LV mass(C)s 87.8 grams LV mass(C)sI 49.5 grams/m\S\2 SV(Teich) 44.1 ml SI(Teich) 24.9 ml/m\S\2 SV(cubed) 43.4 ml SI(cubed) 24.5 ml/m\S\2 Ao root diam 2.9 cm Ao root area 6.5 cm\S\2 ACS 1.5 cm LA dimension 3.4 cm asc Aorta Diam 2.8 cm LA/Ao 1.2 LVAd ap4 26.0 cm\S\2 LVLd ap4 7.6 cm EDV(MOD-sp4) 78.6 ml EDV(sp4-el) 75.2 ml LVAs ap4 12.8 cm\S\2 LVLs ap4 5.8 cm ESV(MOD-sp4) 24.4 ml ESV(sp4-el) 23.9 ml EF(MOD-sp4) 69.0 % EF(sp4-el) 68.2 % EDV(MOD-sp2) 91.0 ml ESV(MOD-sp2) 30.0 ml EF(MOD-sp2) 67.0 % SV(MOD-sp4) 54.2 ml SI(MOD-sp4) 30.6 ml/m\S\2 SV(MOD-sp2) 61.0 ml SI(MOD-sp2) 34.4 ml/m\S\2 SV(sp4-el) 51.3 ml SI(sp4-el) 29.0 ml/m\S\2 Doppler Measurements and Calculations MV E max ashley 84.1 cm/sec MV A max ashley 80.9 cm/sec MV E/A 1.0 MV P1/2t max ashley 107.3 cm/sec MV P1/2t 78.9 msec MVA(P1/2t) 2.8 cm\S\2 MV dec slope 398.5 cm/sec\S\2 MV dec time 0.31 sec Ao V2 max 137.2 cm/sec Ao max PG 7.5 mmHg Ao max PG (full) 1.0 mmHg AI max ashley 432.9 cm/sec AI max PG 75.0 mmHg AI dec slope 189.0 cm/sec\S\2 AI P1/2t 670.9 msec LV V1 max PG 6.5 mmHg LV V1 max 127.4 cm/sec PA V2 max 94.5 cm/sec PA max PG 3.6 mmHg PI max ashley 163.1 cm/sec PI max PG 10.6 mmHg PI dec slope 164.7 cm/sec\S\2 PI P1/2t 289.9 msec TR max ashley 249.1 cm/sec RVSP(TR) 27.8 mmHg RAP systole 3.0 mmHg
[2018-01-30] MEDS: GABAPENTIN 600 MG TAB PO SCH ×3 (12:22→21:07)
[2018-01-30] MEDS: MAGNESIUM OXIDE 400 MG TAB PO SCH (12:23)
[2018-01-30] MEDS: HEPARIN SOD 5000 UNIT/0.5 ML CARP SQ SCH ×2 (12:23→21:19)
[2018-01-30] MEDS: VENLAFAXINE HCL XR 75 MG CAPXR PO SCH (12:23)
[2018-01-30] MEDS: LEVOTHYROXINE 50 MCG TAB PO SCH (12:23)
[2018-01-30] MEDS: VENLAFAXINE HCL XR 150 MG CAPXR PO SCH (12:23)
[2018-01-30] MEDS: ASPIRIN 81 MG ECTAB PO SCH (12:23)
--- NOTE | 2018-01-30 15:44 | Family Medicine Progress Note ---
Progress Note Date of Service Jan 30, 2018. Subjective Pt evaluation today including: conversation w/ patient, physical exam, chart review, lab review Pain: had some chest pain while eating Voiding: no voiding problems 62F with a PMHx of HLD, knee OA p/w a two day history of abrupt onset substernal chest pressure. Pt has had a previous cath that was normal. Non specific T wave abnormality on EKG. Trops negative x 3. underwent dobutamine stress test this morning and had no chest pain. c/o chest pain which started while eating lunch after the stress test. felt like something was stuck in her chest when she tried eating beef and hard fruit. states that her father has a h/o esophageal strictures and wonders if her pain is sec to those as well. also c/o constipation. last BM was 3 days ago Constitutional: No fever, No chills Eyes: No worsening of vision ENT: No hearing loss Respiratory: No cough, No sputum, No wheezing, No shortness of breath Cardiovascular: + chest pain (on eating , which is now resolved), No orthopnea, No PND, No edema Abdomen: + constipation, No nausea, No vomiting, No diarrhea Musculoskeletal: No joint pain Female : No dysuria Neurologic: No memory loss Psychiatric: + anxiety Medications Current Inpatient Medications Medications (Trade) Dose Ordered Sig/Liane Route Start Time Stop Time Status Last Admin Dose Admin Acetaminophen (Tylenol Tab) 650 mg Q4H PRN PO 01/28/18 20:00 02/27/18 19:59 Al Hydrox/Mg Hydrox/Simethicone (Maalox Max Susp) 15 ml Q4H PRN PO 01/28/18 20:00 02/27/18 19:59 Magnesium Hydroxide (Milk Of Magnesia Susp) 30 ml Q12H PRN PO 01/28/18 20:00 02/27/18 19:59 Ondansetron HCl (Zofran Inj) 4 mg Q6H PRN IV 01/28/18 20:00 02/27/18 19:59 Nitroglycerin (Nitrostat Tab) 0.4 mg UD PRN SL 01/28/18 20:00 02/27/18 19:59 Morphine Sulfate (MoRPHine SULFATE INJ) 2 mg Q30M PRN IV 01/28/18 20:00 02/11/18 19:59 Polyethylene (Miralax Powder Packet) 17 gm DAILY PRN PO 01/28/18 20:00 02/27/18 19:59 Fluticasone Propionate (Flonase Nasal [place]) 2 sprays BID PRN DENA 01/28/18 20:00 02/27/18 19:59 Gabapentin (Neurontin Tab) 600 mg TID PO 01/28/18 21:00 01/30/18 16:00 01/30/18 12:22 600 MG Lorazepam (Ativan Tab) 1 mg HS PRN PO 01/28/18 20:00 02/27/18 19:59 01/29/18 20:53 1 MG Lorazepam (Ativan Tab) 0.5 mg DAILY PRN PO 01/28/18 20:00 02/27/18 19:59 Ondansetron HCl (Zofran Tab) 4 mg Q8 PRN PO 01/28/18 20:00 02/27/18 19:59 Miscellaneous (Iv Fluids Completed) 1 ea PRN PRN N/A 01/28/18 20:30 01/28/19 20:29 Verapamil HCl (Calan-Sr Tab) 120 mg HS PO 01/29/18 21:00 02/27/18 20:59 01/29/18 20:46 120 MG Amitriptyline HCl (Elavil Tab) 25 mg HS PO 01/30/18 21:00 03/01/18 20:59 Aspirin (Ecotrin Tab) 81 mg DAILY PO 01/31/18 09:00 03/02/18 08:59 Heparin Sodium (Porcine) (Heparin Sq 5000 Unit/0.5ml) 5,000 unit Q12 SQ 01/30/18 21:00 03/01/18 20:59 Gabapentin (Neurontin Tab) 600 mg TID PO 01/30/18 21:00 03/01/18 20:59 Levothyroxine Sodium (Synthroid Tab) 50 mcg DAILY PO 01/31/18 09:00 03/02/18 08:59 Magnesium Oxide (Mag-Ox Tab) 400 mg DAILY PO 01/31/18 09:00 03/02/18 08:59 Valacyclovir HCl (Valtrex Tab) 500 mg HS PO 01/30/18 21:00 02/09/18 20:59 Venlafaxine HCl (effeXOR EXTENDED REL CAP) 150 mg QAM PO 01/31/18 09:00 03/02/18 08:59 Venlafaxine HCl (effeXOR EXTENDED REL CAP) 75 mg QAM PO 01/31/18 09:00 03/02/18 08:59 Tamsulosin HCl (Flomax Cap) 0.4 mg HS PO 01/30/18 21:00 03/01/18 20:59 Objective Vital Signs Date Time Temp Pulse Resp B/P (MAP) Pulse Ox O2 Delivery O2 Flow Rate FiO2 01/30/18 14:54 36.5 64 18 128/82 (97) 96 Room Air 01/30/18 12:30 Room Air 01/30/18 11:15 36.6 61 18 110/73 (85) 91 Room Air 01/30/18 08:30 Room Air 01/30/18 07:17 36.5 64 18 105/66 (79) 92 Room Air 01/30/18 04:57 36.7 62 16 95/55 (68) 94 Room Air 01/30/18 04:00 Room Air 01/30/18 04:00 36.4 63 20 105/68 (80) 94 Room Air 01/30/18 00:14 37.0 65 17 100/59 (73) 93 Room Air 01/30/18 00:00 Room Air 01/29/18 20:00 Room Air 01/29/18 19:05 36.6 66 20 127/55 (79) 92 Room Air 01/29/18 16:00 Room Air Physical Exam General Appearance: WD/WN, no apparent distress ENT: hearing grossly normal Neck: supple Respiratory/Chest: chest non-tender, lungs clear, normal breath sounds, no respiratory distress, no accessory muscle use Cardiovascular: regular rate, rhythm Abdomen: normal bowel sounds, non tender, soft Extremities: + pedal edema (trace) 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: alert, normal mood/affect, oriented x 3 Laboratory Results 01/30/18 06:28 01/30/18 06:28 Test 01/30/18 06:28 Red Blood Count 3.88 M/uL (4.2-5.4) Mean Corpuscular Volume 90.5 fL (80-100) Mean Corpuscular Hemoglobin 29.1 pg (25-34) Mean Corpuscular Hemoglobin Concent 32.2 g/dl (32-36) RDW Standard Deviation 45.4 fL (36.4-46.3) RDW Coefficient of Variation 13.6 % (11.5-14.5) Mean Platelet Volume 8.9 fL (7.4-10.4) Anion Gap 6.0 mmol/L (3-11) Est Creatinine Clear Calc Drug Dose 61.3 ml/min Estimated GFR () 76.9 Estimated GFR (Non- 66.3 BUN/Creatinine Ratio 17.6 (10-20) Calcium Level 8.7 mg/dl (8.5-10.1) Magnesium Level 2.4 mg/dl (1.8-2.4) * Dobutamine Stress Echo: * 1. Negative Dobutamine stress echo for ischemia at 84 % MPHR; cannot rule out ischemic changes at faster heart rates. * 2. Nondiagnostic dobutamine ECG for ischemia as target heart rate was not attained. * 3. Appropriate blood pressure response. * 4. No arrhythmia. * 5. No chest pain reported. * Echo: * 1. Normal left ventricular size and systolic function. EF 65-70%. No regional wall motion abnormalities. No left ventricular hypertrophy. * 2. Mild mitral regurgitation. * 3. Normal estimated right ventricular systolic pressure. Assessment and Plan 62F with a PMHx of HLD, knee OA p/w a two day history of abrupt onset substernal chest pressure. Pt has had a previous cath that was normal. Non specific T wave abnormality on EKG. Trops negative x 3. C/o chest pain on eating after the stress test today. concerned about esophageal stricture as her father was diagnosed with it Precordial chest pain: likely sec to esophageal spasms Nonspecific EKG Changes. Trops negative x 3. CT abd/ pelvis unremarkable Dobutamine stress echo: Negative Dobutamine stress echo for ischemia at 84 % MPHR; EF 65-70% , no wall motion abnormalities barium swallow in AM, NPO after midnight Constipation: h/o IBS - Continue Miralax Anxiety/depression/chronic pain Continue amitriptyline, gabapentin, effexor Ativan 1mg PRN QHS HTN c/w Verapamil Pt states she takes Dyazide as well for HTN, she has been normotensive thus far so will hold. 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 barium swallow tomorrow Full code Resident Physician Supervision Note: I interviewed and examined the patient. Discussed with Dr. Chung and agree with findings and plan as documented in the note. Any exceptions or clarifications are listed here: None Documented By: Kojo Plummer pain returned after eating vitals noted nad breathing unlabored no pallor or icterus dysphagia - chest pain appearing esophageal - barium swallow - GI eval constipation - miralax, more proactive approach otherwise as above Resident Tracking Resident Involvement: Resident Care Provided Care Provided: Adult Hospital Medicine
[2018-01-30] MEDS ORDERED: POLYETHYLENE (MIRALAX) 17 GM PACK PO PRN (19:30)
[2018-01-30] MEDS ORDERED: AMITRIPTYLINE HCL 25 MG TAB PO SCH (21:00)
[2018-01-30] MEDS ORDERED: TAMSULOSIN HCL 0.4 MG CAP PO SCH (21:00)
[2018-01-30] MEDS: VERAPAMIL HCL 120 MG TABCR PO SCH (21:09)
[2018-01-30] MEDS: LORAZEPAM 0.5 MG TAB PO PRN (22:33)
[2018-01-31 00:24] VITALS: BP 117/71; PULSE 66; TEMP 36.4; O2SAT 93
[2018-01-31 04:13] VITALS: BP 104/57; PULSE 66; TEMP 36.4; O2SAT 93
[2018-01-31 05:50] LABS: HEMATOCRIT 32.9 % (37-47); HEMOGLOBIN 11.1 g/dL (12.0-16.0); MEAN CELL VOLUME 89.2 fL (80-100); MEAN CORPUSCULAR HEMOGLOBIN 30.1 pg (25-34); MEAN CORPUSCULAR HGB CONC 33.7 g/dl (32-36); MEAN PLATELET VOLUME 8.6 fL (7.4-10.4); PLATELET COUNT 234 K/uL (130-400); RED CELL DISTRIBUTION WIDTH CV 13.5 % (11.5-14.5); RED CELL DISTRIBUTION WIDTH SD 44.5 fL (36.4-46.3); WHITE BLOOD COUNT 4.68 K/uL (4.8-10.8)
[2018-01-31 06:29] LABS: CALCIUM 8.3 mg/dl (8.5-10.1); CREATININE 0.79 mg/dl (0.60-1.20)
[2018-01-31 07:27] VITALS: BP 115/72; PULSE 70; TEMP 36.6; O2SAT 94
--- NOTE | 2018-01-31 08:02 | DIAGNOSTIC IMAGING REPORT ---
(BARIUM SWALLOW) ESOPHAGUS CLINICAL HISTORY: "something stuck " in esophagus feelingdysphagia COMPARISON STUDY: None FLUOROSCOPY TIME: 1.4 minutes. FINDINGS: Findings suggesting normal initiation of the swallowing function. Persistent moderate prominence the cricopharyngeus. Mild esophageal dysmotility/spasm.. Small lateral hernia. Mild reflux. Tablet passed to the stomach easily. IMPRESSION: 1. Mild/moderate cricopharyngeal achalasia. 2. Mild generalized esophageal spasm/irritability. 3. Small hiatal hernia. 4. Mild reflux. The above report was generated using voice recognition software. It may contain grammatical, syntax or spelling errors. Electronically signed by: Adithya George M.D. 01/31/2018 8:01 AM Dictated Date/Time: 01/31/2018 7:51 AM
[2018-01-31] MEDS ORDERED: AMLODIPINE BESYLATE 5 MG TAB PO SCH (09:00)
[2018-01-31] MEDS ORDERED: POLYETHYLENE (MIRALAX) 17 GM PACK PO SCH (09:00)
[2018-01-31] MEDS ORDERED: VENLAFAXINE HCL XR 75 MG CAPXR PO SCH (09:00)
[2018-01-31] MEDS ORDERED: VENLAFAXINE HCL XR 150 MG CAPXR PO SCH (09:00)
[2018-01-31] MEDS: HEPARIN SOD 5000 UNIT/0.5 ML CARP SQ SCH (09:00)
[2018-01-31] MEDS ORDERED: MAGNESIUM OXIDE 400 MG TAB PO SCH (09:00)
[2018-01-31] MEDS ORDERED: LEVOTHYROXINE 50 MCG TAB PO SCH (09:00)
[2018-01-31] MEDS ORDERED: ASPIRIN 81 MG ECTAB PO SCH (09:00)
[2018-01-31] MEDS: GABAPENTIN 600 MG TAB PO SCH ×2 (09:12→14:26)
[2018-01-31] MEDS ORDERED: NRV5 PO (10:43)
[2018-01-31 10:47] VITALS: BP 115/72; PULSE 70; TEMP 36.6; O2SAT 94
--- NOTE | 2018-01-31 11:30 | Discharge Instructions ---
Discharge Instructions Date of Service Jan 31, 2018. Admission Reason for Admission: Precordial Chest Pain Discharge Discharge Diagnosis / Problem: Precordial chest pian, esophageal spasm Discharge Goals Goal(s): Decrease discomfort Activity Recommendations Activity Limitations: resume your previous activity . Instructions / Follow-Up Instructions / Follow-Up You were admitted with chest pain and were monitored and evaluated for cardiac causes , dobutamine stress echo was done which was negative. It is likely the cause of your chest pain is esophageal spasm and motility issues with your food pipe as evidenced by the barium swallow. Esophageal spasm: please use amlodipine 2.5 mg daily to help relieve the spasm Modify your diet to eat more soft foods and try to avoid hard food like meat, toast etc follow up with gastroenterology as scheduled Constipation: h/o IBS - Continue to use Miralax as needed to avoid constipation. you may go up to 4 capfuls of miralax until you have a BM Anxiety/depression/chronic pain Continue amitriptyline, gabapentin, effexor Continue to use Ativan 1mg PRN QHS High blood pressure - Continue Verapamil as scheduled. - You are also on amlodipine which might affect your blood pressure. If you feel light headed or dizzy, discuss with your PCP to modify the dosage of your verapamil to better control your BP Stop using Dyazide Hyperlipidemia Would recommend to watch your diet and get plenty of exercise as you are intolerant Hypothyroid - Continue Levothyroxine Bladder Outlet Obstruction - Continue Flomax 0.4mg Please follow up with PCP in about a week Follow up with Gastroenterology for further evaluation as scheduled Current Hospital Diet Patient's current hospital diet: AHA Diet (Heart Healthy) Discharge Diet Recommended Diet: AHA Diet (Heart Healthy) (soft food ) Procedures Procedures Performed: Dobutamine stress echo Barium swallow Pending Studies Studies pending at discharge: no Laboratory Results Lipid Panel Test 01/29/18 01:57 Range/Units Triglycerides Level 228 H 0-150 mg/dl Cholesterol Level 253 H 0-200 mg/dl HDL Cholesterol 40 mg/dl Cholesterol/HDL Ratio 6.3 LDL Cholesterol, Calculated 167 mg/dl Medical Emergencies . Who to Call and When: Medical Emergencies: If at any time you feel your situation is an emergency, please call 911 immediately. . Non-Emergent Contact Non-Emergency issues call your: Primary Care Provider . . "Provider Documentation" section prepared by Maryse Chung. . Network Architect Recommendations Network Architect Recommendations:
--- NOTE | 2018-01-31 17:06 | Discharge Summary ---
Discharge Summary Date of Service Jan 31, 2018. Discharge Summary Admission Date: Jan 28, 2018 at 20:08 Discharge Date: Jan 31, 2018 Discharge Disposition: Home Principal Diagnosis: chest pain due to esophageal spasm/achalasia Immunizations: Have You Had Influenza Vaccine: No History of Tetanus Vaccine?: Yes Tetanus Immunization Date: Feb 24, 2004 History of Pneumococcal: No History of Hepatitis B Vaccine: No Procedures: stress echo: Interpretation Summary * Name: JUAN LUIS VELASQUEZ Study Date: 01/30/2018 08:35 AM BP: 138/58 mmHg * Patient Location: [facility]\\S\\[id number]\\[id number]\\[id number] HR: 66 * : 1955 (M/d/yyyy) Gender: Female Height: 63 in * Age: 62 yrs Ethnicity: [place] Weight: 163 lb * Ordering Physician: Estefania Prather * Referring Physician: Self, Referred * Performed By: Roberto Lee RCS * * Reason For Study: Chest Pain * BSA: 1.8 m2 * -- Conclusions -- * Dobutamine Stress Echo: * 1. Negative Dobutamine stress echo for ischemia at 84 % MPHR; cannot rule out ischemic changes at faster heart rates. * 2. Nondiagnostic dobutamine ECG for ischemia as target heart rate was not attained. * 3. Appropriate blood pressure response. * 4. No arrhythmia. * 5. No chest pain reported. * Echo: * 1. Normal left ventricular size and systolic function. EF 65-70%. No regional wall motion abnormalities. No left ventricular hypertrophy. * 2. Mild mitral regurgitation. * 3. Normal estimated right ventricular systolic pressure. Procedure Details * DOBUTAMINE ECHO, CPT#[id number] * ECHO COLOR FLOW, CPT #[id number] * ECHO DOPPLER, CPT #[id number] Left Ventricle * The left ventricle is normal in size. * There is normal left ventricular wall thickness. * Ejection Fraction = 65-70%. * Resting wall motion: Normal. Stress wall motion: Appropriate increase in Left ventricular systolic function and decrease in cavity size. No stress induced segmental wall motion abnormalities. * The left ventricular ejection fraction increases normally with stress. The left ventricular end-systolic cavity size reduces post-stress (normal response). The left ventricular wall motion with stress is normal. Right Ventricle * The right ventricle is normal in size and function. Atria * The left atrial size is normal. * Right atrial size is normal. * There is no evidence of atrial septal defect, but resolution does not allow assessment for a patent foramen ovale. Mitral Valve * The mitral valve is grossly normal. * There is no mitral valve stenosis. * There is mild mitral regurgitation. Tricuspid Valve * The tricuspid valve is not well visualized, but is grossly normal. * There is no tricuspid stenosis. * There is trace tricuspid regurgitation. Aortic Valve * The aortic valve is trileaflet. * No hemodynamically significant valvular aortic stenosis. * Trace aortic regurgitation. Pulmonic Valve * The pulmonary valve is inadequately visualized, but the Doppler data is adequate for interpretation. * Trace pulmonic valvular regurgitation. Great Vessels * The aortic root is normal size. * Ascending aorta of normal dimension * Aortic arch of normal dimension. * Normal pulmonary venous flow pattern. Normal IVC size and inspiratory collapse. Pericardium * There is no pericardial effusion. Stress Parameters * Sinus rhythm at 66 bpm. * Stress ECG: No ST changes. No arrhythmias. * No arrhythmia were noted with stress. * Rest heart rate was '66' BPM. * Rest blood pressure was '138/58' * Maximum heart rate achieved was 134 bpm. * Maximum heart rate was 84 % of maximum age-predicted heart rate. * Maximum blood pressure was '138/58' * Maximum Dobutamine infusion rate was '50' mcg/kg/min. * A total of 1 mg of intravenous Atropine was used to supplement Dobutamine for heart rate response. * Dobutamine infusion was terminated due to achieving target heart rate * A total of 5 mg of IV Metoprolol was administered to reverse Dobutamine- induced tachycardia. barium swallow: DIAGNOSTIC IMAGING [~ rep ct add3]] (BARIUM SWALLOW) ESOPHAGUS CLINICAL HISTORY: "something stuck " in esophagus feelingdysphagia COMPARISON STUDY: None FLUOROSCOPY TIME: 1.4 minutes. FINDINGS: Findings suggesting normal initiation of the swallowing function. Persistent moderate prominence the cricopharyngeus. Mild esophageal dysmotility/spasm.. Small lateral hernia. Mild reflux. Tablet passed to the stomach easily. IMPRESSION: 1. Mild/moderate cricopharyngeal achalasia. 2. Mild generalized esophageal spasm/irritability. 3. Small hiatal hernia. 4. Mild reflux. The above report was generated using voice recognition software. It may contain grammatical, syntax or spelling errors. Electronically signed by: Adithya George M.D. Lipid Panel Test 01/29/18 01:57 Range/Units Triglycerides Level 228 H 0-150 mg/dl Cholesterol Level 253 H 0-200 mg/dl HDL Cholesterol 40 mg/dl Cholesterol/HDL Ratio 6.3 LDL Cholesterol, Calculated 167 mg/dl ABD/PELVIS NO IV OR ORAL CONT CT DOSE: 451.05 mGy.cm HISTORY: Pain ABD PAIN, POSSIBLE OBSTRUCTION, NO CONTRAST TECHNIQUE: Multiaxial CT images of the abdomen and pelvis were performed without contrast. A dose lowering technique was utilized adhering to the principles of ALARA. COMPARISON STUDY: 10/02/2013 FINDINGS: The lung bases are clear. The unenhanced liver, spleen, gallbladder, pancreas, kidneys, and adrenal glands are within normal limits. No bowel wall thickening or obstruction. The pelvic organs are unremarkable. No suspicious lytic or blastic osseous lesions. IMPRESSION: No significant abnormality identified within the abdomen or pelvis. The above report was generated using voice recognition software. It may contain grammatical, syntax or spelling errors. Electronically signed by: Adithya George M.D. 01/28/2018 6:46 PM [~ rep ct add3]] CHEST ONE VIEW PORTABLE CLINICAL HISTORY: ABDOMINAL PAIN/GI pain COMPARISON STUDY: 12/10/2017 FINDINGS: The bones soft tissues and hemidiaphragms are normal. The cardiomediastinal silhouette is normal. The lungs are clear. The pulmonary vasculature is normal. IMPRESSION: Negative chest. The above report was generated using voice recognition software. It may contain grammatical, syntax or spelling errors. Electronically signed by: Adithya George M.D. 01/28/2018 5:48 PM cardiac enzymes were negative Last Resulted CBC 01/31/18 05:32 Last Resulted BMP 01/31/18 05:32 Medication Reconciliation New Medications: Amlodipine Besylate (Amlodipine Besylate) 5 Mg Tab 2.5 MG PO QAM for 30 Days, #15 TAB Continued Medications: Amitriptyline Hcl (Elavil) 25 Mg Tab 25 MG PO HS, TAB Aspirin (Aspirin Adult Low Dose) 81 Mg Tab 81 MG PO DAILY Fluticasone Propionate (Nasal) (Flonase Allergy Relief) 50 Mcg/Act Spr 1 SPRAY DENA BID PRN for Allergic Reaction Gabapentin (Neurontin) 600 Mg Tab 600 MG PO TID, TAB Levothyroxine Sodium (Synthroid) 50 Mcg Tab 50 MCG PO DAILY Lorazepam (Lorazepam) 0.5 Mg Tab 0.5-1 MG PO HS PRN for Sleep Lorazepam (Ativan) 0.5 Mg Tab 0.5 MG PO DAILY PRN for Anxiety, TAB Magnesium Oxide (Mag-Ox) 400 Mg Tab 400 MG PO DAILY, TAB Melatonin (Melatonin Maximum Strengt) 5 Mg Tab 10 MG PO HS, #30 TAB 1 Refill Ondansetron Hcl (Zofran) 4 Mg Tab 4 MG PO Q8 PRN for Nausea, TAB Riboflavin (Riboflavin) 400 Mg Tab 400 MG PO DAILY Valacyclovir (Valtrex) 500 Mg Tab 500 MG PO HS Venlafaxine Hcl (Effexor) 75 Mg Tab 75 MG PO QAM TOTAL DOSE 225 MG. Venlafaxine Hcl (Effexor Extended Rel) 150 Mg Cap 150 MG PO QAM TOTAL DOSE 225 MG. 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, alert, normal mood/affect Skin: normal color, warm/dry Hospital Course chest pain -admitted wt chest pain concern on ACS -cardiac enzymes were negative, stress echo negative for ischemia (not quite goal HR but otherwise negative test) -lunch after stress test pt got repeated sx - feeling like something stuck in chest - barium swallow confirmed esophageal motility issues - added amlodipine -since no stricture/food bolus - no indications for emergent EGD - GI f/u as outpt in near future arranged by KATRINA Becerra constipation -chronic sounding constipation -discussed using proactive approach rather than waiting until constipated and having to "catch up" - discussed use of miralax in this regard hyperlipid -noted to be statin intolerant - would have ongoing discussions w PCP in regards to alternative therapies given markedly elevated non-HDL; also would consider re-try of statin given risks/benefits and overall data suggesting statin intolerance may not be as common as believed. Total Time Spent: Less than 30 minutes This includes examination of the patient, discharge planning, medication reconciliation, and communication with other providers. Discharge Instructions Please refer to the electronic Patient Visit Report (Discharge Instructions) for additional information. Additional Copies To Angelina Hobbs C.R.N.P
== END 2018-01-31 14:38 | disposition home or self-care (01) ==
LOC: C.EDB 16:49 → C.MED 20:08 → ENRESERV 20:16
PROVIDERS: ADMIT Internal Medicine; ATTEND Family Medicine
DX: K22.4 Dyskinesia of esophagus (principal); F32.9 Major depressive disorder, single episode, unspecified; E78.5 Hyperlipidemia, unspecified; I10 Essential (primary) hypertension; I25.2 Old myocardial infarction; M17.10 Unilateral primary osteoarthritis, unspecified knee; Z90.89 Acquired absence of other organs; Z90.710 Acquired absence of both cervix and uterus; Z79.899 Other long term (current) drug therapy; Z79.82 Long term (current) use of aspirin; Z86.73 Personal history of transient ischemic attack (TIA), and cerebral infarction without residual deficits; Z88.1 Allergy status to other antibiotic agents; Z83.3 Family history of diabetes mellitus; Z82.49 Family history of ischemic heart disease and other diseases of the circulatory system

== ENCOUNTER 2019-06-12 12:03 | Observation (INO) ==
[2019-06-12 12:58] LABS: Basophils # (auto) 0.03 K/uL (0-0.2); Basophils % (auto) 0.8 %; Eosinophils # (auto) 0.08 K/uL (0-0.5); Eosinophils % (auto) 2.2 %; Hematocrit (blood only) 35.1 % (37-47); Immature Granulocytes # (auto) 0.01 K/uL (0.00-0.02); Immature Granulocytes % (auto) 0.3 %; Lymphocytes # (auto) 1.33 K/uL (1.2-3.4); Lymphocytes % (auto) 35.8 %; Mean Corpuscular Hgb Conc 34.2 g/dL (32-36); Mean Corpuscular Volume 89.1 fL (80-100); Mean Platelet Volume 8.7 fL (7.4-10.4); Monocytes # (auto) 0.39 K/uL (0.11-0.59); Monocytes % (auto) 10.5 %; Neutrophils # (auto) 1.87 K/uL (1.4-6.5); Neutrophils % (auto) 50.4 %; Platelet Count 245 K/uL (130-400); RDW Coefficient of Variation 13.2 % (11.5-14.5); RDW Standard Deviation 43.4 fL (36.4-46.3); Red Blood Count 3.94 M/uL (4.2-5.4); White Blood Count 3.71 K/uL (4.8-10.8)
[2019-06-12 13:07] LABS: Partial Thromboplastin Time 26.8 Seconds (21.0-31.0); Prothrombin Time 10.1 Seconds (9.0-12.0)
[2019-06-12 13:17] LABS: BUN Creatinine Ratio 11.2 (10-20); Calcium 9.1 mg/dl (8.5-10.1); Est GFR (African American) 75.4
[2019-06-12] MEDS ORDERED: OPTIRAY 320 125ml IV PRN (13:50)
[2019-06-12 13:54] LABS: Albumin Globulin Ratio 1.1 (0.9-2); Bilirubin,Total 0.3 mg/dl (0.2-1); Globulin 3.5 gm/dl (2.5-4.0); Potassium 3.5 mmol/L (3.5-5.1); Total Protein 7.5 gm/dl (6.4-8.2)
--- NOTE | 2019-06-12 14:03 | CT Scan Report ---
CT angio chest PE protocol HISTORY: 63 years-old Female with Chest Pain, eval for PE. Acute shortness of breath with chest rivera n TECHNIQUE: Multiple CTA images of the chest were obtained after the intravenous administration of 120 ml Optiray 320. Coronal and sagittal MIPS were obtained from the axial data set and were submitted for review. All measurements were obtained according to NASCET criteria. A dose lowering technique w as utilized adhering to the principles of ALARA. COMPARISON: Chest radiograph 01/28/2018, CT chest 10/02/2013. FINDINGS: CTA: Heart is normal in size without pericardial effusion. No thoracic aortic aneurysm or dissection. Ther e is patency of the imaged great vessels. The pulmonary arterial tree is opacified to the level of th e subsegmental branches and demonstrates no focal filling defects to suggest pulmonary thromboembolic disease. CT CHEST: No focal thyroid nodule or adenopathy. No pneumothorax or pleural effusion. Mild dependent bibasilar opacities suggest atelectasis. No overt pulmonary edema, suspicious pulmonary nodule or mass identifi ed. There is mild bibasilar bronchial wall thickening. Central airways appear to be patent. Decreased attenuation of the liver is suggestive of mild hepatic steatosis. No acute process of the i simran upper abdomen. Mild nonspecific wall thickening of the distal esophagus. Soft tissues and breas t parenchyma appear unremarkable. Bones of the chest appear unremarkable. There is mild degenerative changes about the shoulders and spine. IMPRESSION: 1. No evidence of pulmonary thromboembolic disease. 2. No adenopathy or focal airspace consolidation typical for pneumonia. 3. Mild bibasilar bronchial wall thickening suggests bronchitis or reactive airway disease with mild associated subsegmental bibasilar atelectasis. 4. Mild nonspecific wall thickening of the distal esophagus. The above report was generated using voice recognition software. It may contain grammatical, syntax o r spelling errors. Electronically signed by: Sha Knight M.D. 06/12/2019 2:02 PM
[2019-06-12] MEDS ORDERED: NITROGLYCERIN 2% OINTMENT 30GM TUBE EXT ONE (14:20)
--- NOTE | 2019-06-12 14:54 | Ultrasound Report ---
US venous doppler LE LT HISTORY: 63 years-old Female calf pain eval for dvt acute left-sided calf pain COMPARISON: CTA of the chest of same day TECHNIQUE: Multiple real time sonographic images of the left lower extremity deep venous structures w ere obtained assessing grayscale appearance and color flow FINDINGS: Normal flow, possibility, phasicity and augmentation of the left lower extremity deep venous structur es. Ill-defined area of increased echogenicity is noted about the left calf subcutaneous tissues, 2.2 x 2.1 x 0.9 cm deep to the area of patient's reported cutaneous bruising. IMPRESSION: 1. No sonographic evidence of deep venous thrombosis. 2. Ill-defined area of increased echogenicity about the subcutaneous tissues of the left calf, 2.2 cm is suggestive of a probable small hematoma. The above report was generated using voice recognition software. It may contain grammatical, syntax o r spelling errors. Electronically signed by: Sha Knight M.D. 06/12/2019 2:52 PM
--- NOTE | 2019-06-12 16:03 | History & Physical Report ---
Date of Service June 12, 2019 Assessment & Plan (1) Atypical chest pain: Clinically she has costochondritis. Observation with telemetry. Serial troponins and EKGs. Cardiac echo. Consult cardiology. Continue aspirin therapy and topical nitrates. Administer several doses of Solu-Medrol to see if the reproducible chest discomfort resolves Present on Admission?: Yes (2) Hypothyroidism: Continue thyroid replacement therapy Present on Admission?: Yes (3) Depression: Treated with amitriptyline, buspirone, venlafaxine Present on Admission?: Yes (4) DVT prophylaxis: Lovenox subcu History of Present Illness Chief Complaint: Chest pain Primary Care Provider: BRIEN Chahal 63-year-old female with vague upper chest discomfort that started Tuesday evening that she describes as tightness and heaviness associated with shortness of breath. The symptoms however are palpable and the symptoms wax and wane. No radiation. No diaphoresis. Again, the symptoms are reproducible with pressure on the left upper lateral sternal border. Chest CTA is negative for PE. EKG reveals no acute changes. Initial troponin negative. Venous Doppler study negative for DVT but she does have a left calf hematoma. I suspect she has costochondritis but will be placed in observation for further assessment. She will receive several doses of IV Solu-Medrol to see if the palpable chest dis comfort response to treatment. Allergies Allergy/AdvReac Type Severity Reaction Status Date / Time erythromycin base Allergy Unknown VOMITTING Verified 06/12/19 13:15 Macrolide Antibiotics AdvReac Unknown STOMACH Verified 06/12/19 13:15 UPSET Home Medications Home Medications Medication Instructions Recorded Confirmed Type [id number] 1 - 2 cap PO UD #20 cap 03/28/19 06/12/19 History 50 mg-325 mg-40 mg capsule ondansetron 4 mg disintegrating 4 mg PO Q6H PRN #20 tab 03/28/19 06/12/19 History tablet tamsulosin 0.4 mg capsule 0.4 mg PO DAILY #30 cap 03/28/19 06/12/19 History verapamil ER 240 mg 24 hr 240 mg PO DAILY #30 cap 03/28/19 06/12/19 History capsule,extended release amitriptyline 50 mg tablet 50 mg PO DAILY #30 tab 04/27/19 06/12/19 History fluticasone propionate 50 1 sprays INTRANASAL DAILY #16 gm 04/27/19 06/12/19 Rx mcg/actuation nasal spray,suspension levothyroxine 50 mcg tablet 50 mcg PO DAILY #30 tab 04/27/19 06/12/19 Rx polyethylene glycol 3350 17 17 gm PO DAILY #119 gm 04/27/19 06/12/19 Rx gram/dose oral powder venlafaxine ER 150 mg 150 mg PO QAM #30 cap 04/27/19 06/12/19 Rx capsule,extended release 24 hr fexofenadine 180 mg tablet 180 mg PO DAILY #30 tab 05/03/19 06/12/19 Rx pantoprazole 40 mg tablet,delayed 40 mg PO DAILY #30 tab 05/24/19 06/12/19 Rx release valacyclovir 500 mg tablet 500 mg PO DAILY #30 tab 05/24/19 06/12/19 Rx triamterene 37.5 1 cap PO DAILY #90 cap 05/28/19 06/12/19 Rx mg-hydrochlorothiazide 25 mg capsule aspirin 81 mg PO DAILY 06/12/19 06/12/19 History buspirone 10 mg PO BID 06/12/19 06/12/19 History lorazepam 0.5 mg PO DAILY 06/12/19 06/12/19 History lorazepam [Ativan] 1 mg PO HS 06/12/19 06/12/19 History Past Med/Surg History Medical History Vaginal prolapse (Acute) Urinary frequency (Acute) URTI (acute upper respiratory infection) (Acute) Slow transit constipation (Acute) Peripheral edema (Acute) Palpitations (Acute) Pain and numbness of right upper extremity (Acute) Osteoarthritis of hands, bilateral (Acute) Muscle pain (Acute) Incomplete bladder emptying (Acute) Hypokalemia (Acute) Headache, hemiplegic migraine (Acute) Grief reaction (Acute) Foot erythema (Acute) Fatigue (Acute) Esophageal dysmotility (Acute) Concussion (Acute) Chest tightness or pressure (Acute) Cervical radiculopathy (Acute) Bladder retention of urine (Acute) Arthralgia of multiple sites (Acute) Ankle swelling (Acute) Anemia (Acute) Acute bronchitis with bronchospasm (Acute) Acid reflux (Acute) Achalasia, esophageal (Acute) Abdominal pain of multiple sites (Acute) Surgical History H/O ovarian cystectomy H/O rectocele repair H/O varicose vein ligation and stripping History of appendectomy History of bladder surgery S/P total abdominal hysterectomy Social History Preferred Language: Romanian Feels Safe at Home: Yes Smoking Status: Never smoker Review of Systems Review of Systems: Constitutional-no fever or chills ENT-no blurred vision, no double vision, no epistaxis, no sore throat Respiratory-no cough, no wheezing, no shortness of breath Cardiac-no palpitations, no syncope. Chest discomfort as described above GI-no nausea, vomiting, diarrhea, melena, hematochezia -no urinary retention, no urinary incontinence, no dysuria, no hematuria Musculoskeletal-no joint pain, no muscle tenderness Skin-no bruising, no rashes, no pruritus Neuro-no isolated weakness, no paresthesia, no weakness Psych-no depression, no anxiety Physical Exam Physical Exam: General-alert and oriented x3, no fevers, no chills HEENT-head atraumatic and normocephalic, TMs intact bilaterally, pupils equal and reactive to light, extraocular muscles intact Neck-no lymphadenopathy or thyromegaly, trachea midline Chest-clear to auscultation percussion. No rales wheezing or rhonchi. Tender left upper parasternal area Cardiac-regular rate and rhythm, normal S1 and S2, no JVD. Grade 1/6 systolic murmur at the apex Abdomen-normal bowel sounds, nontender, no hepatosplenomegaly Extremities-no cyanosis, clubbing, or edema Neuro-cranial nerves II through XII intact, motor and sensory function within normal limits, strength symmetrical 5/5, no focal deficits Psych-normal affect, normal mood Results & Data Vital Signs (Past 12 Hours) Vital Signs Temp Pulse Pulse Resp BP BP Pulse Ox 06/12/19 14:23 75 18 135/66 97 06/12/19 12:50 98 06/12/19 12:08 36.7 C 63 18 120/73 96 Laboratory Results 06/12/19 12:42 06/12/19 12:42 PG Care Time/CCT Total # of Minutes Spent Total Time Spent with Patient: Total time spent is greater than 50% in coordination of care (as documented) at patient's floor/unit and/or counseling patient:
[2019-06-12] MEDS ORDERED: ONDANSETRON INJ 2 MG/ML 2 ML VIAL IV PRN (17:34)
[2019-06-12] MEDS ORDERED: ALUMINUM/MAGNESIUM SUSP 30 ML UDC PO PRN (17:34)
[2019-06-12] MEDS ORDERED: MoRPHine SULFATE 2 MG/ML CARP IV PRN (17:34)
[2019-06-12] MEDS ORDERED: ACETAMINOPHEN 325 MG TAB PO PRN (17:34)
[2019-06-12] MEDS: methylPREDNISolone 40 MG in SYRINGE 0 ML IV SCH (18:46)
[2019-06-12] MEDS: NITROGLYCERIN 2% OINTMENT 30GM TUBE EXT SCH ×2 (18:46→23:50)
[2019-06-12] MEDS ORDERED: ENOXAPARIN INJ 40 MG/0.4 ML SYR SQ SCH (20:00)
--- NOTE | 2019-06-12 20:35 | Emergency Department Note ---
Entered by Rosmery López acting as a scribe for History of Present Illness General Chief complaint: Chest Pain Stated complaint: POSS BLOOD CLOT IN L LEG, CHEST PAIN Source: patient History of Present Illness Onset (ago): day(s) 3 Location: chest (central) Radiation: non-radiation Pain Consistency: + constant Maximum Pain Intensity: 8 Exacerbated By: + movement; not by eating Associated symptoms: + shortness of breath and + other (+left leg discomfort; +lump/bruise on left calf; +red/warm/swollen left ankle; -diarrhea; -abdominal pain); no cough, no diaphoresis and no nausea/vomiting Treatments prior to arrival: aspirin The patient is a 63 year old female who presents to the Emergency Room with complaints of constant central chest pain that began 3 days ago. The patient states the chest pain began when she was sitting down, and she describes the chest pain as causing her chest to feel heavy. The patient reports that the chest pain worsens with exertion and and is associated with short of breath. The patient denies the chest pain worsening with eating or accompanied with diaphoresis. The patient also denies the chest pain radiating anywhere. The patient also reports of left leg discomfort. The patient notes a lump and bruise on left calf that she noticed last night. The patient reports her left ankle has been red, warm, and swollen for the past two weeks. She does have a history of left leg DVT many years ago which was provoked by hormone replacement therapy. She is not on any significant blood thinners at this time. She only takes aspirin. The patient denies coughing, vomiting, diarrhea, or abdominal pain. The patient reports that she has been icing her ankle to keep the pain down and to make it easier to walk. The patient denies a fever, cough, vomiting, diarrhea, or abdominal pain. Home Medications Home Medications Medication Instructions Recorded Confirmed Type [id number]-[id number] 1 - 2 cap PO UD #20 cap 03/28/19 06/12/19 History 50 mg-325 mg-40 mg capsule ondansetron 4 mg disintegrating 4 mg PO Q6H PRN #20 tab 03/28/19 06/12/19 History tablet tamsulosin 0.4 mg capsule 0.4 mg PO DAILY #30 cap 03/28/19 06/12/19 History verapamil ER 240 mg 24 hr 240 mg PO DAILY #30 cap 03/28/19 06/12/19 History capsule,extended release amitriptyline 50 mg tablet 50 mg PO DAILY #30 tab 04/27/19 06/12/19 History fluticasone propionate 50 1 sprays INTRANASAL DAILY #16 gm 04/27/19 06/12/19 Rx mcg/actuation nasal spray,suspension levothyroxine 50 mcg tablet 50 mcg PO DAILY #30 tab 04/27/19 06/12/19 Rx polyethylene glycol 3350 17 17 gm PO DAILY #119 gm 04/27/19 06/12/19 Rx gram/dose oral powder venlafaxine ER 150 mg 150 mg PO QAM #30 cap 04/27/19 06/12/19 Rx capsule,extended release 24 hr fexofenadine 180 mg tablet 180 mg PO DAILY #30 tab 05/03/19 06/12/19 Rx pantoprazole 40 mg tablet,delayed 40 mg PO DAILY #30 tab 05/24/19 06/12/19 Rx release valacyclovir 500 mg tablet 500 mg PO DAILY #30 tab 05/24/19 06/12/19 Rx triamterene 37.5 1 cap PO DAILY #90 cap 05/28/19 06/12/19 Rx mg-hydrochlorothiazide 25 mg capsule aspirin 81 mg PO DAILY 06/12/19 06/12/19 History buspirone 10 mg PO BID 06/12/19 06/12/19 History lorazepam 0.5 mg PO DAILY 06/12/19 06/12/19 History lorazepam [Ativan] 1 mg PO HS 06/12/19 06/12/19 History Allergies Allergy/AdvReac Type Severity Reaction Status Date / Time erythromycin base Allergy Unknown VOMITTING Verified 06/12/19 13:15 Macrolide Antibiotics AdvReac Unknown STOMACH Verified 06/12/19 13:15 UPSET Past Med/Surg History Medical History Depression (Chronic) Atypical chest pain (Acute) Hypothyroidism (Chronic) Vaginal prolapse (Acute) Urinary frequency (Acute) URTI (acute upper respiratory infection) (Acute) Slow transit constipation (Acute) Peripheral edema (Acute) Palpitations (Acute) Pain and numbness of right upper extremity (Acute) Osteoarthritis of hands, bilateral (Acute) Muscle pain (Acute) Incomplete bladder emptying (Acute) Hypokalemia (Acute) Headache, hemiplegic migraine (Acute) Grief reaction (Acute) Foot erythema (Acute) Fatigue (Acute) Esophageal dysmotility (Acute) Concussion (Acute) Chest tightness or pressure (Acute) Cervical radiculopathy (Acute) Bladder retention of urine (Acute) Arthralgia of multiple sites (Acute) Ankle swelling (Acute) Anemia (Acute) Acute bronchitis with bronchospasm (Acute) Acid reflux (Acute) Achalasia, esophageal (Acute) Abdominal pain of multiple sites (Acute) Surgical History H/O ovarian cystectomy H/O rectocele repair H/O varicose vein ligation and stripping History of appendectomy History of bladder surgery S/P total abdominal hysterectomy Social History Preferred Language: [place] Beliefs That Will Affect Care: None Current Living Situation: Family Current Living Situation Comment: lives w/ son Feels Safe at Home: Yes Smoking Status: Never smoker Hx Alcohol Use: No Hx Substance Use: No Review of Systems See HPI for pertinent positives & negatives. and A total of 10 systems reviewed and were otherwise negative Physical Exam Vital Signs Vital Signs - 24 hr 06/12/19 12:08 06/12/19 12:50 06/12/19 14:23 Temperature 36.7 C Temperature Source Oral Sepsis Recent Fever Within 48 Hours No Sepsis New/Unexplained Change in Mental Status No Sepsis Action Taken by Nursing No Action Required Pulse Rate 63 Pulse Rate [Apical] 75 Respiratory Rate 18 18 Respiratory Depth Normal Blood Pressure 120/73 Blood Pressure [Left Arm] 135/66 Blood Pressure Mean 88 Blood Pressure Mean [Left Arm] 89 Blood Pressure Position Sitting Pulse Oximetry 96 98 97 Oxygen Delivery Method Room Air Room Air Constitutional: Vital signs reviewed. Eyes: Pupils are equal round reactive to light. Conjunctiva are noninjected. ENT: Pharynx is clear without erythema or exudate. Mucous membranes are moist. Neck supple without meningeal signs. Respiratory: Clear to auscultation bilaterally. Breath sounds are equal bilaterally. Cardiovascular: Regular rate and rhythm. No rubs or gallops. GI: Soft, nondistended and nontender. Bowel sounds are present. Musculoskeletal: Edema to left ankle. Mild erythema to ankle without increased warmth and joint tenderness. FROM of left ankle. Normal distal pulse. Calf tenderness with bruising. Integumentary: No cyanosis. Neurological: The patient is awake and alert. No focal deficits. Psychiatric: Normal affect. Course 1220: Past medical records reviewed. The patient was evaluated in room C11. A complete history and physical exam was performed. 1528: I reevaluated the patient. The patient reports the chest pain has resolved after receiving NG. I discussed her test results with her. She is agreeable to hospitalization. 1531: I [facility] the [facility]. Lauren will further evaluate the patient. Consultations Consultation #1: I discussed the patient's [facility]. Lauren will further evaluate the patient. Time: 15:31 Administered Medications Buspirone HCl (Buspar) 10 mg PO BID@0800,1200 MILLI Stop: 07/13/19 07:59 Last Admin: 06/12/19 19:33 Dose: 10 mg Documented by: [id number] Enoxaparin Sodium (Lovenox) 40 mg SQ Q24H MILLI Stop: 07/12/19 19:59 Last Admin: 06/12/19 19:31 Dose: 40 mg Documented by: [id number] Methylprednisolone 40 mg/ (Syringe) 0.64 mls @ 1.5 mls/min IV Q8H MILLI Stop: 06/13/19 10:01 Last Admin: 06/12/19 18:46 Dose: 1.5 mls/min Documented by: [id number] Ioversol (Optiray 320 125ml) 120 ml IV ONCE PRN PRN Reason: Interaction Checking Stop: 06/16/19 13:49 Last Admin: 06/12/19 13:50 Dose: 120 ml Documented by: [id number] Lorazepam (Ativan) 1 mg PO HS MILLI Stop: 07/12/19 20:59 Last Admin: 06/12/19 20:09 Dose: 1 mg Documented by: [id number] Nitroglycerin (Nitro-Bid 2%) 1 inch EXT Q6 MILLI Stop: 07/12/19 17:59 Last Admin: 06/12/19 18:46 Dose: 1 inch Documented by: [id number] Discontinued Medications Nitroglycerin (Nitro-Bid 2%) 0.5 inch EXT NOW ONE Stop: 06/12/19 14:21 Last Admin: 06/12/19 14:29 Dose: 0.5 inch Documented by: [id number] Medical Decision Making Differential Diagnosis Differential diagnoses include pulmonary embolism, deep vein thrombosis, Roberts's cyst, superficial thrombophlebitis, ACS, GERD, amongst others. Medical Records Attestation: I reviewed the patient's medical records. The patient was admitted in January 2018. She came in for chest pain that was found to be from esophageal spasms and achalasia. Home Medications Current Medication List: was personally reviewed by me Laboratory Data Attestation: I reviewed the patient's lab results. Result diagrams: 06/12/19 12:42 06/12/19 12:42 Lab Results 06/12/19 06/12/19 06/12/19 Range/Units 12:42 12:42 12:42 WBC 3.71 L (4.8-10.8) K/uL RBC 3.94 L (4.2-5.4) M/uL Hgb 12.0 (12.0-16.0) g/dL Hct 35.1 L (37-47) % MCV 89.1 (80-100) fL MCH 30.5 (25-34) pg MCHC 34.2 (32-36) g/dL RDW Std Deviation 43.4 (36.4-46.3) fL RDW Coeff of Ana 13.2 (11.5-14.5) % Plt Count 245 (130-400) K/uL MPV 8.7 (7.4-10.4) fL Immature Gran % (Auto) 0.3 % Neut % (Auto) 50.4 % Lymph % (Auto) 35.8 % [place] % (Auto) 10.5 % Eos % (Auto) 2.2 % Baso % (Auto) 0.8 % Immature Gran # (Auto) 0.01 (0.00-0.02) K/uL Neut # (Auto) 1.87 (1.4-6.5) K/uL Lymph # (Auto) 1.33 (1.2-3.4) K/uL [place] # (Auto) 0.39 (0.11-0.59) K/uL Eos # (Auto) 0.08 (0-0.5) K/uL Baso # (Auto) 0.03 (0-0.2) K/uL PT 10.1 (9.0-12.0) Seconds INR 1.0 (0.9-1.1) APTT 26.8 (21.0-31.0) Seconds PTT Ratio 1.0 POC D-Dimer (0-450) ng/mlFEU Sodium 132 L (136-145) mmol/L Potassium 3.5 (3.5-5.1) mmol/L Chloride 98 (98-107) mmol/L Carbon Dioxide 29 (21-32) mmol/L Anion Gap 5.0 (3-11) BUN 11 (7-18) mg/dl Creatinine 0.94 (0.6-1.2) mg/dl Est Cr Clr Drug Dosing 58.0 ml/min Est GFR ( Amer) 75.4 Est GFR (Non-Af Amer) 65.0 BUN/Creatinine Ratio 11.2 (10-20) Glucose 102 H (70-99) mg/dl Calcium 9.1 (8.5-10.1) mg/dl Total Bilirubin 0.3 (0.2-1) mg/dl AST 24 (15-37) U/L ALT 38 (12-78) U/L Alkaline Phosphatase 104 (45-117) U/L POC Troponin I (0-0.045) ng/ml Total Protein 7.5 (6.4-8.2) gm/dl Albumin 4.0 (3.4-5.0) gm/dl Globulin 3.5 (2.5-4.0) gm/dl Albumin/Globulin Ratio 1.1 (0.9-2) 06/12/19 Range/Units 12:52 WBC (4.8-10.8) K/uL RBC (4.2-5.4) M/uL Hgb (12.0-16.0) g/dL Hct (37-47) % MCV (80-100) fL MCH (25-34) pg MCHC (32-36) g/dL RDW Std Deviation (36.4-46.3) fL RDW Coeff of Ana (11.5-14.5) % Plt Count (130-400) K/uL MPV (7.4-10.4) fL Immature Gran % (Auto) % Neut % (Auto) % Lymph % (Auto) % [place] % (Auto) % Eos % (Auto) % Baso % (Auto) % Immature Gran # (Auto) (0.00-0.02) K/uL Neut # (Auto) (1.4-6.5) K/uL Lymph # (Auto) (1.2-3.4) K/uL [place] # (Auto) (0.11-0.59) K/uL Eos # (Auto) (0-0.5) K/uL Baso # (Auto) (0-0.2) K/uL PT (9.0-12.0) Seconds INR (0.9-1.1) APTT (21.0-31.0) Seconds PTT Ratio POC D-Dimer > 450 H* (0-450) ng/mlFEU Sodium (136-145) mmol/L Potassium (3.5-5.1) mmol/L Chloride (98-107) mmol/L Carbon Dioxide (21-32) mmol/L Anion Gap (3-11) BUN (7-18) mg/dl Creatinine (0.6-1.2) mg/dl Est Cr Clr Drug Dosing ml/min Est GFR ( Amer) Est GFR (Non-Af Amer) BUN/Creatinine Ratio (10-20) Glucose (70-99) mg/dl Calcium (8.5-10.1) mg/dl Total Bilirubin (0.2-1) mg/dl AST (15-37) U/L ALT (12-78) U/L Alkaline Phosphatase (45-117) U/L POC Troponin I < 0.03 (0-0.045) ng/ml Total Protein (6.4-8.2) gm/dl Albumin (3.4-5.0) gm/dl Globulin (2.5-4.0) gm/dl Albumin/Globulin Ratio (0.9-2) Imaging Data Radiologist's Impression: Radiology results as stated below per my review and the radiologist's interpretation: CT angio chest PE protocol HISTORY: 63 years-old Female with Chest Pain, eval for PE. Acute shortness of breath with chest pain TECHNIQUE: Multiple CTA images of the chest were obtained after the intravenous administration of 120 ml Optiray 320. Coronal and sagittal MIPS were obtained from the axial data set and were submitted for review. All measurements were obtained according to NASCET criteria. A dose lowering technique was utilized adhering to the principles of ALARA. COMPARISON: Chest radiograph 01/28/2018, CT chest 10/02/2013. FINDINGS: CTA: Heart is normal in size without pericardial effusion. No thoracic aortic aneurysm or dissection. There is patency of the imaged great vessels. The pulmonary arterial tree is opacified to the level of the subsegmental branches and demonstrates no focal filling defects to suggest pulmonary thromboembolic disease. CT CHEST: No focal thyroid nodule or adenopathy. No pneumothorax or pleural effusion. Mild dependent bibasilar opacities suggest atelectasis. No overt pulmonary edema, suspicious pulmonary nodule or mass identified. There is mild bibasilar bronchial wall thickening. Central airways appear to be patent. Decreased attenuation of the liver is suggestive of mild hepatic steatosis. No acute process of the imaged upper abdomen. Mild nonspecific wall thickening of the distal esophagus. Soft tissues and breast parenchyma appear unremarkable. Bones of the chest appear unremarkable. There is mild degenerative changes about the shoulders and spine. IMPRESSION: 1. No evidence of pulmonary thromboembolic disease. 2. No adenopathy or focal airspace consolidation typical for pneumonia. 3. Mild bibasilar bronchial wall thickening suggests bronchitis or reactive airway disease with mild associated subsegmental bibasilar atelectasis. 4. Mild nonspecific wall thickening of the distal esophagus. The above report was generated using voice recognition software. It may contain grammatical, syntax or spelling errors. Electronically signed by: Sha Knight M.D. 06/12/2019 2:02 PM US venous doppler LE HISTORY: 63 years-old Female calf pain eval for dvt acute left-sided calf pain COMPARISON: CTA of the chest of same day TECHNIQUE: Multiple real time sonographic images of the left lower extremity deep venous structures were obtained assessing grayscale appearance and color flow FINDINGS: Normal flow, possibility, phasicity and augmentation of the left lower extremity deep venous structures. Ill-defined area of increased echogenicity is noted about the left calf subcutaneous tissues, 2.2 x 2.1 x 0.9 cm deep to the area of patient's reported cutaneous bruising. IMPRESSION: 1. No sonographic evidence of deep venous thrombosis. 2. Ill-defined area of increased echogenicity about the subcutaneous tissues of the left calf, 2.2 cm is suggestive of a probable small hematoma. The above report was generated using voice recognition software. It may contain grammatical, syntax or spelling errors. Electronically signed by: Sha Knight M.D. 06/12/2019 2:52 PM ECG Data Attestation: I personally reviewed and interpreted this ECG as follows: Indication: chest pain Rate (beats per minute): 58 Rhythm: sinus bradycardia Findings: no PVC and no ST elevation Blood Pressure Blood Pressure Findings: Normal blood pressure MDM Narrative I did evaluate the patient as noted above. The patient is presenting with exertional chest pain for the past several days. There is no radiation of pain but she does have shortness of breath. She has a prior history of DVT and states that she has had leg pain and swelling as well as shortness of breath. IV access was established. The patient was placed on a continuous esthetician/owner. I did order and personally review the patient's 12-lead EKG as described above. She has no evidence of STEMI on twelve-lead EKG. she does have some nonspecific ST changes. I did order and review the patient's blood work as noted in the electronic medical record. Troponin is negative. White count is 3.7. Sodium is 132. D-dimer is elevated. I did order a CT angiogram of the chest. I did review the images myself as well as the radiology report as described above. There is no evidence of pulmonary embolism. I did order a Doppler ultrasound of the left leg. She does not have any signs of DVT. She does have a small hematoma where her bruises. I did discuss the test results with the patient. I did treat her with nitroglycerin paste. She had complete resolution of her chest discomfort with the nitroglycerin. I did recommend hospitalization for further evaluation as well as repeat cardiac biomarkers. I did discuss case with the hospitalist and therapeutic case manager. Impression & Plan Chest pain, exertional, Abnormal ECG, Hematoma of left lower extremity, Acute hyponatremia Discharge Plan Visit Data *Final* Discharge Date/Time: 06/12/19 17:20 Chief Complaint: Chest Pain Stated Complaint: POSS BLOOD CLOT IN L LEG, CHEST PAIN ED Provider: Scott Reed Discharge Problem: Chest pain, exertional, Abnormal ECG, Hematoma of left lower extremity, Acute hyponatremia Patient Disposition: Admitted As Inpatient Discharge Instructions Interventions: ED Discharge Assessment Last Done: 06/12/19 17:20 Discharge Problem: Hematoma of left lower extremity Qualifiers: Encounter type: initial encounter Qualified Code(s): S80.12XA - Contusion of left lower leg, initial encounter The scribe's documentation has been prepared under my direction and personally reviewed by me in its entirety. I confirm that the note above accurately ref lects all work, treatment, procedures, and medical decision making performed by me.
[2019-06-12] MEDS ORDERED: LORazepam 1 MG TAB PO SCH (21:00)
[2019-06-12] MEDS: NITROGLYCERIN SL 0.4 MG/TAB TAB SL PRN ×4 (21:08→21:25)
[2019-06-12] MEDS ORDERED: FAMOTIDINE 20MG/5ML IV PUSH IV STA (21:30)
[2019-06-12] MEDS ORDERED: FAMOTIDINE 20 MG in SYRINGE 3 ML IV ONE (21:45)
[2019-06-12] MEDS ORDERED: ALUMINUM/MAGNESIUM SUSP 18 ML, LIDOCAINE HCL VISCOUS 2% 6 ML, BARCODE IDENTIFIER 1 EA PO ONE (22:00)
--- NOTE | 2019-06-12 22:10 | XRay Report ---
XR chest 1V portable CLINICAL HISTORY: chest pain pain COMPARISON STUDY: 01/28/2018 FINDINGS: The bones soft tissues and hemidiaphragms are normal. The cardiomediastinal silhouette is n ormal. The lungs are clear. The pulmonary vasculature is normal. IMPRESSION: Negative chest. The above report was generated using voice recognition software. It may contain grammatical, syntax or spelling errors. Electronically signed by: Adithya George M.D. 06/12/2019 10:09 PM
[2019-06-13] MEDS: methylPREDNISolone 40 MG in SYRINGE 0 ML IV SCH ×2 (02:00→08:15)
[2019-06-13 04:52] LABS: BUN Creatinine Ratio 9.8 (10-20); Blood Urea Nitrogen 11 mg/dl (7-18); Carbon Dioxide 25 mmol/L (21-32); Chloride 97 mmol/L (98-107); Creatinine Clr Calc Pharmacy 49.6 ml/min; Est GFR (African American) 62.3; Est GFR (Non-African American) 53.8; Glucose 151 mg/dl (70-99); Potassium 4.5 mmol/L (3.5-5.1); Sodium 133 mmol/L (136-145); Troponin I < 0.015 ng/ml (0-0.045)
[2019-06-13] MEDS: NITROGLYCERIN 2% OINTMENT 30GM TUBE EXT SCH ×2 (06:08→12:29)
[2019-06-13] MEDS ORDERED: LEVOTHYROXINE SODIUM 50 MCG TABLET PO SCH (06:30)
[2019-06-13] MEDS ORDERED: ASPIRIN 81 MG ECTAB PO SCH (09:00)
[2019-06-13] MEDS ORDERED: AMITRIPTYLINE HCL 50 MG TAB PO SCH (09:00)
[2019-06-13] MEDS ORDERED: TAMSULOSIN HCL 0.4 MG CAP PO SCH (09:00)
[2019-06-13] MEDS ORDERED: FLUTICASONE PROPIONATE NA SPR 16 GM BTL NAE SCH (09:00)
[2019-06-13] MEDS ORDERED: FEXOFENADINE HCL 180 MG TAB PO SCH (09:00)
[2019-06-13] MEDS ORDERED: LORazepam 0.5 MG TAB PO SCH (09:00)
[2019-06-13] MEDS ORDERED: VENLAFAXINE HCL XR 150 MG CAPXR PO SCH (09:00)
[2019-06-13] MEDS ORDERED: PANTOprazole 40 MG TAB PO SCH (09:00)
[2019-06-13] MEDS ORDERED: VALACYCLOVIR HCL 500 MG TABLET PO SCH (09:00)
[2019-06-13] MEDS ORDERED: POLYETHYLENE (MIRALAX) 17 GM PACK PO SCH (09:00)
[2019-06-13] MEDS ORDERED: VERAPAMIL HCL 240 MG TABCR PO SCH (09:00)
[2019-06-13] MEDS ORDERED: TRIAMTERENE/HCTZ 37.5/25MG CAP PO SCH (09:00)
--- NOTE | 2019-06-13 10:41 | Cardiology Consultation ---
Date of Consultation June 13, 2019 Assessment & Plan (1) Atypical chest pain: Her chest discomfort was somewhat prolonged and has resolved, there is no evidence of this being ischemic and that her electrocardiogram, echocardiogram and troponin measurements are all normal. In addition her dobutamine echo shows no ischemia. I would not pursue any further ischemic evaluation, I do not believe her symptoms were cardiac in origin. History of Present Illness Reason for Consultation: Chest discomfort Attending Physician: Nish Lauren MD History of Present Illness This is a 63-year-old woman who has a history of hypothyroidism and depression and presents with atypical chest discomfort. Her symptoms began 3 days prior to admission, wax and wane and are described as a heaviness in association with shortness of breath. At the time of my evaluation today she was feeling better, her chest heaviness had resolved and she is not experiencing shortness of breath. Her emergency room visit on June 12, 2019 included a negative venous Doppler study and a negative chest CT for PE. Initial electrocardiography and troponin measurements were unremarkable. Allergies Allergy/AdvReac Type Severity Reaction Status Date / Time erythromycin base Allergy Unknown VOMITTING Verified 06/12/19 13:15 Macrolide Antibiotics AdvReac Unknown STOMACH Verified 06/12/19 13:15 UPSET Home Medications Home Medications Medication Instructions Recorded Confirmed Type tqkfwuyzua-odtwxufzzhadb-cyrvilul 1 - 2 cap PO UD #20 cap 03/28/19 06/12/19 History 50 mg-325 mg-40 mg capsule ondansetron 4 mg disintegrating 4 mg PO Q6H PRN #20 tab 03/28/19 06/12/19 History tablet tamsulosin 0.4 mg capsule 0.4 mg PO DAILY #30 cap 03/28/19 06/12/19 History verapamil ER 240 mg 24 hr 240 mg PO DAILY #30 cap 03/28/19 06/12/19 History capsule,extended release amitriptyline 50 mg tablet 50 mg PO DAILY #30 tab 04/27/19 06/12/19 History fluticasone propionate 50 1 sprays INTRANASAL DAILY #16 gm 04/27/19 06/12/19 Rx mcg/actuation nasal spray,suspension levothyroxine 50 mcg tablet 50 mcg PO DAILY #30 tab 04/27/19 06/12/19 Rx polyethylene glycol 3350 17 17 gm PO DAILY #119 gm 04/27/19 06/12/19 Rx gram/dose oral powder venlafaxine ER 150 mg 150 mg PO QAM #30 cap 04/27/19 06/12/19 Rx capsule,extended release 24 hr fexofenadine 180 mg tablet 180 mg PO DAILY #30 tab 05/03/19 06/12/19 Rx pantoprazole 40 mg tablet,delayed 40 mg PO DAILY #30 tab 05/24/19 06/12/19 Rx release valacyclovir 500 mg tablet 500 mg PO DAILY #30 tab 05/24/19 06/12/19 Rx triamterene 37.5 1 cap PO DAILY #90 cap 05/28/19 06/12/19 Rx mg-hydrochlorothiazide 25 mg capsule aspirin 81 mg PO DAILY 06/12/19 06/12/19 History buspirone 10 mg PO BID 06/12/19 06/12/19 History lorazepam 0.5 mg PO DAILY 06/12/19 06/12/19 History lorazepam [Ativan] 1 mg PO HS 06/12/19 06/12/19 History Patient History Medical History Depression (Chronic) Atypical chest pain (Acute) Hypothyroidism (Chronic) Vaginal prolapse (Acute) Urinary frequency (Acute) URTI (acute upper respiratory infection) (Acute) Slow transit constipation (Acute) Peripheral edema (Acute) Palpitations (Acute) Pain and numbness of right upper extremity (Acute) Osteoarthritis of hands, bilateral (Acute) Muscle pain (Acute) Incomplete bladder emptying (Acute) Hypokalemia (Acute) Headache, hemiplegic migraine (Acute) Grief reaction (Acute) Foot erythema (Acute) Fatigue (Acute) Esophageal dysmotility (Acute) Concussion (Acute) Chest tightness or pressure (Acute) Cervical radiculopathy (Acute) Bladder retention of urine (Acute) Arthralgia of multiple sites (Acute) Ankle swelling (Acute) Anemia (Acute) Acute bronchitis with bronchospasm (Acute) Acid reflux (Acute) Achalasia, esophageal (Acute) Abdominal pain of multiple sites (Acute) Surgical History H/O ovarian cystectomy H/O rectocele repair H/O varicose vein ligation and stripping History of appendectomy History of bladder surgery S/P total abdominal hysterectomy Social History Preferred Language: Occitan Beliefs That Will Affect Care: None Current Living Situation: Family Current Living Situation Comment: lives w/ son Feels Safe at Home: Yes Smoking Status: Never smoker Hx Alcohol Use: No Hx Substance Use: No Physical Exam Physical Exam: Constitutional: Alert, cooperative and in no distress. HEENT: Unremarkable Neck: No jugular venous distention, carotid pulses are normal and equal bilaterally without bruits. Pulmonary: Clear to auscultation bilaterally. Cardiac: Regular rhythm with no murmur, gallop or rub. Abdomen: Soft, nontender with normal bowel sounds. Extremities: No edema. Distal pulses intact. Neurologic: No focal findings. Gait is steady. Skin: No rash, ecchymoses or petechiae. Results & Data Vital Signs (Past 12 Hours) Vital Signs Temp Pulse Pulse Resp BP Pulse Ox 06/13/19 10:23 36.9 C 80 19 135/76 93 06/13/19 07:20 36.8 C 73 18 163/81 H 95 06/13/19 03:17 36.9 C 58 L 16 112/68 95 06/13/19 00:00 36.9 C 58 L 71 18 113/66 94 Laboratory Results Abnormal lab results 06/13/19 Range/Units 04:18 Sodium 133 L (136-145) mmol/L Chloride 97 L (98-107) mmol/L BUN/Creatinine Ratio 9.8 L (10-20) Glucose 151 H (70-99) mg/dl Troponin measurements x3 are normal. Diagnostic Findings Her electrocardiogram on June 12, 2019 at 12:18 PM shows sinus bradycardia at 58 bpm but is otherwise unremarkable. This was repeated at 2054 on June 12, 2019 with similar findings, and again this morning at 7 AM and is very similar with a heart rate slightly higher at 63 bpm. An echocardiogram done this morning shows normal left ventricular size and function with no regional wall motion abnormalities and no pericardial effusion. A dobutamine stress echo was negative for ischemia.
[2019-06-13] MEDS ORDERED: DOBUTamine HCL 12.5 MG/ML 20 ML VIAL IV ONE (10:56)
[2019-06-13] MEDS ORDERED: METOPROLOL TARTRATE 1 MG/ML VIAL IV ONE (10:56)
[2019-06-13] MEDS ORDERED: ATROPINE SULFATE 0.1 MG/ML 10ML SYR IV ONE (10:57)
--- NOTE | 2019-06-13 17:49 | Discharge Summary ---
Date of Service June 13, 2019 Admission HPI Per Admitting Provider 63-year-old female with vague upper chest discomfort that started Tuesday evening that she describes as tightness and heaviness associated with shortness of breath. The symptoms however are palpable and the symptoms wax and wane. No radiation. No diaphoresis. Again, the symptoms are reproducible with pressure on the left upper lateral sternal border. Chest CTA is negative for PE. EKG reveals no acute changes. Initial troponin negative. Venous Doppler study negative for DVT but she does have a left calf hematoma. I suspect she has costochondritis but will be placed in observation for further assessment. She will receive several doses of IV Solu-Medrol to see if the palpable chest discomfort response to treatment. Principal Diagnosis Musculoskeletal chest pain Discharge Exam In general she is awake and alert pleasant no distress. HEENT normocephalic atraumatic mucous members are moist. Breathing unlabored no accessory muscle use good effort. Skin shows no rashes no pallor or icterus. Neuro shows no focal deficits. Mental status shows good recent and remote recall normal mood and affect good judgment and insight. Discharge Data Allergies Allergy/AdvReac Type Severity Reaction Status Date / Time erythromycin base Allergy Unknown VOMITTING Verified 06/12/19 13:15 Macrolide Antibiotics AdvReac Unknown STOMACH Verified 06/12/19 13:15 UPSET Consultations 06/12/19 15:41 ED Decision to Admit Stat 06/12/19 17:34 Consult Cardiology Routine Ordered Studies 06/12/19 12:26 US venous doppler LE LT Stat no DVT 06/12/19 12:27 CT angio chest PE protocol Stat no PE Stress echo shows a degree of ischemic type ST depressions, but her wall motion augments well with absolutely no ischemic type wall motion abnormalities. Resting echo with no wall motion abnormalities Hospital Course (1) Atypical chest pain: Presented with atypical chest pain most consistent with biomechanical/rib related pain -With prior venous thromboembolic disease history, ER appropriately ruled out DVT/PE -With risk factors, UT was ruled out with serial enzymes. Her EKG showed some nonspecific T wave changes. Stress echo was echo portion negative for ischemia, EKG with some ischemic type changes, but given that the echo not only was not showing any wall motion abnormalities but augmented well, as well as the fact that her pain was much more characteristic of rib pain that ischemic chest pain, she was quite stable for discharge home. -Outpatient follow-up Total Time Total Time Spent Total Time Spent (In Minutes): Less than 30 Discharge Plan Discharge Items Patient Disposition: Home - Self-Care Reason For Visit: CHEST PAIN Discharge Diagnosis: Atypical Chest Pain Condition: Good Discharge Goals: Decrease discomfort and Improve disease control Activity: Resume your previous activity Non-emergency contact: Primary Care Provider Call non-emergency contact if: you have any medication questions, your symptoms worsen and you have a fever Follow-up/Referrals: Angelina Hobbs CRNP [Nurse Practitioner] - 06/21/19 10:30 am (Please, follow up at [facility] with Angelina TESFAYE on June 21 at 10:30 am. *If you need to change this appointment, call the office at [phone].) Diet: Heart Healthy Addtl Provider Instructions: Ms. Correa you had presented to the ED on 06/12/19 with chief complaint of chest pain and L leg pain and swelling. While there you underwent imaging studies of CT of your chest and Doppler studies of your Left leg. Both of the studies showed negative signs for you having a Pulmonary Embolism (clot in your lungs) or a DVT (clot in your leg). You were transferred to a room in the hospital and given medication to help with your pain and steroids to help with inflammation and pain. You were also put on Telemetry to record your heart which showed you to have Sinus Rhythm at rate 60-70bpm throughout the night. You also underwent a Stress Echocardiogram to rule out any angina or ischemia of your heart. Since your chest pain is reproducible to the touch on the lower left sternal border, it is likely that your pain was more associated with Costochondritis (rib pain). -Please follow up with your PCP in the next 2-3 days. -Please continue your home medications as prescribed. -If you have any signs or symptoms of your chest pain worsening, changing, or returning, please contact your PCP or come to the ED. Prescriptions: Continued pantoprazole 40 mg tablet,delayed release (DR/EC) 40 mg PO DAILY Qty: 30 RF: 5 valacyclovir 500 mg tablet 500 mg PO DAILY Qty: 30 RF: 5 triamterene-hydrochlorothiazid 37.5-25 mg capsule 1 cap PO DAILY Qty: 90 RF: 1 verapamil 240 mg capsule,ext rel. pellets 24 hr 240 mg PO DAILY Qty: 30 RF: 0 tamsulosin 0.4 mg capsule 0.4 mg PO DAILY Qty: 30 RF: 0 oarfdxhcei-yxqcohviqcxxn-kbwk 50-325-40 mg capsule 1 - 2 cap PO UD Qty: 20 RF: 0 ondansetron 4 mg tablet,disintegrating 4 mg PO Q6H PRN (Reason: Nausea And Vomiting) Qty: 20 RF: 0 amitriptyline 50 mg tablet 50 mg PO DAILY Qty: 30 RF: 0 fluticasone propionate 50 mcg/actuation spray,suspension 1 sprays intranasal DAILY Qty: 16 RF: 2 levothyroxine 50 mcg tablet 50 mcg PO DAILY Qty: 30 RF: 5 polyethylene glycol 3350 17 gram/dose powder 17 gm PO DAILY Qty: 119 RF: 5 venlafaxine 150 mg capsule,extended release 24hr 150 mg PO QAM Qty: 30 RF: 5 fexofenadine [[place] Allergy] 180 mg tablet 180 mg PO DAILY Qty: 30 RF: 3 aspirin 81 mg Tablet,Delayed Release (Dr/Ec) 81 mg PO DAILY RF: 0 lorazepam [Ativan] 1 mg Tablet 1 mg PO HS RF: 0 lorazepam 0.5 mg tablet 0.5 mg PO DAILY RF: 0 buspirone 10 mg tablet 10 mg PO BID RF: 0 Stand-Alone Forms: Call Back Authorization Discharge Orders: Discharge Order (Routine); Ordered 06/13/19 Ordered By: Kojo Plummer Admission Data Admit Date/Time: 06/12/19 16:00 Attending Provider: Nish Lauren Admit Provider: Nish Lauren Primary Care Provider: Kojo Plummer Other Providers: Nish Lauren ; Vernon To ; Ever Hanley ; Everton Jhaveri ; Jerry Wiley ; Cornell Skaggs Jr ; Alfonso Ann ; Kate Pittman ; Adilene Brewer ; Miguel Abbasi ; Miguel Connolly ; Fawad Brown ; Nish Manley ; Alejandra Storey ; Brittany Harmon ; Angelina Hobbs Service: Telemetry Other Interventions: Discharge Summary Assessment (RN) Last Done: 06/13/19 14:27 DC Date/Time DO NOT enter until pt leaves facility: 06/13/19 14:40
== END 2019-06-13 14:40 | disposition home or self-care (01) ==
LOC: ED 12:03 → 2S 12:03 → SUPCPDRO 16:00 → 2S 17:20

== ENCOUNTER 2021-10-22 14:59 | Inpatient (IN) ==
--- NOTE | 2021-10-22 15:20 | CT Scan Report ---
CT head/brain wo con CLINICAL HISTORY: Stroke Like Symptoms .*Speech COMPARISON STUDY: No previous studies for comparison. CT DOSE: 638.56 mGycm TECHNIQUE: Standard CT of the Brain was performed without IV contrast. A dose lowering technique was utilized adhering to the principles of ALARA. FINDINGS: Extraaxial space: There is no evidence for subdural hematoma. There are no extra-axial fluid collecti ons. Ventricles and cisterns: The ventricles are normal in size and configuration. There is no evidence f or midline shift or mass effect. Parenchyma: There is no subarachnoid or intraparenchymal hemorrhage. There is no evidence for an acu te infarct or cerebral edema. There is mild cerebral cortical atrophy and decreased attenuation in th e periventricular white matter representing remote small vessel disease. There are no gross mass lesi ons. Osseous structures: There is no evidence for an acute fracture. The visualized paranasal sinuses are clear. The mastoid air cells are clear bilaterally. Soft tissues: There is no evidence for focal soft tissue swelling. IMPRESSION: No acute intracerebral pathology. Cerebral cortical atrophy and remote small vessel disea se. ACT 112: Negative or not required by law. Electronically signed by: Rakesh Hernandez M.D. 10/22/2021 3:18 PM
[2021-10-22] MEDS ORDERED: OPTIRAY 320 125ml IV ONE (15:27)
--- NOTE | 2021-10-22 15:30 | Emergency Department Note ---
Impression & Plan AMS (altered mental status), Leukopenia, Acute hyponatremia, Slurring of speech ED Provider Note NAME: JUAN LUIS VELASQUEZ AGE: 65 SEX: F : 1955 ARRIVES VIA: Ambulance INFORMANT: Patient ED PROVIDER(S): Kojo Bailey DO CHIEF COMPLAINT: Confusion and expressive aphasia HPI: Patient is a 65-year-old female with a past medical history significant for anxiety, migraines, anemia and previous CVA as well as hyperlipidemia presents the ER for confusion which started around 2 PM. EMS was able to initially talked with her and she was conversing but they note she was slightly confused. She admits to a mild headache. She denies any chest pain or shortness of breath. No nausea, vomiting, or diarrhea. She denies any focal weakness of her arms or legs. EMS notes that her speech deteriorated throughout transport but she had no focal deficit. They believe that she did come back from the doctor's office somewhere around 1:00 and she was in fact found to be confused by a neighbor per report. ROS: See above HPI for pertinent positives & negatives. A total of 10 systems reviewed and were otherwise negative. PAST MEDICAL HISTORY:See Below PAST SURGICAL HISTORY:See Below FAMILY HISTORY:See Below SOCIAL HISTORY:See Below HOME MEDICATIONS:See Below ALLERGIES:See Below VITALS:See Below PHYSICAL EXAMINATION: GENERAL: Sitting up in bed, alert, well appearing, well nourished, no distress, non-toxic EYE EXAM: normal conjunctiva. PERRL and EOM's intact. OROPHARYNX: no exudate, no erythema, lips, buccal mucosa, and tongue normal and mucous membranes are moist NECK: supple, no nuchal rigidity, no adenopathy, non-tender LUNGS: Clear to auscultation. Normal chest wall mechanics HEART: no murmurs, S1 normal and S2 normal ABDOMEN: abdomen soft, non-tender, normo-active bowel sounds, no masses, no rebound or guarding. BACK: Back is symmetrical on inspection and there is no deformity, no midline tenderness, no CVA tenderness. SKIN: no rashes and no bruising UPPER EXTREMITIES: upper extremities are grossly normal. LOWER EXTREMITIES: No pitting edema. NEURO EXAM: Awake oriented to person but not place or year, cranial nerves II- XII intact, garbled speech and difficulty following commands no weakness of arms, no weakness of legs. No drift. MEDICAL DECISION MAKING: Patient is a 65-year-old female who presents the ER brought in by EMS who was made a stroke alert for confusion and slurred speech. IV was established blood work was obtained. Labs show mild leukopenia 4000. No significant anemia. BMP with mild hyponatremia at 133. LFTs bilirubin and troponin was negative. UA was clean. Covid influenza and RSV was negative. CT as well as CT angios the head and neck showed concern for possible vasospasm. Patient was seen and evaluated by [facility] (formerly [facility] They believe that this is likely consistent wi th a stroke. She does have an extensive history of migraines and takes multiple anxiety medications. Last known well was indeterminable and she was not a TPA candidate. She was discussed with the hospitalist admitted for further work-up. She was hypertensive and we did allow for permissive hypertensive as neurology did favor that this was likely a stroke. Aspirin was held initially secondary to confusion and trouble speaking.ASA was held initially secondary to the confusion and trouble talking. Triage Nursing notes reviewed. Limited review of prior medical records performed Vital Signs: reviewed and remarkable for no significant abnormalities Differential diagnosis: Differential Diagnosis includes but is not limited to ischemic Stroke, hemorrhagic stroke, bells palsy, mass, neoplasm, migraine headache, seizure, subarachnoid hemorrhage, TIA, and transient global amnesia. ER treatment provided: See below Diagnostics interpreted by me: ECG: Sinus rhythm rate 86 Normal axis No PVCs Nonspecific ST wave changes in lateral leads Poor baseline in lateral leads Does not appear to be significantly changed from August 17 2021 Cardiac Monitoring: An order was placed for continuous cardiac monitoring. The monitor shows a rate of 72 with sinus rhythm. Laboratory studies: As stated above and show below. Imaging studies: CT of the head as well as angios of the head and neck showed possible vasospasm Portable AP upright 1 view the chest was unremarkable Consultation(s): Patient was seen evaluated by [facility] ([facility] neurologist who reviewed the images and does believe that this is a stroke. Recommended conservative management. Discussed with Dr. Rafael Suero for further evaluation Procedures: none Critical Care: None Past Med/Surg History Medical History Abnormal brain MRI Achalasia, esophageal Acid reflux Arthralgia of multiple sites Bladder retention of urine Cervical radiculopathy Esophageal dysmotility Headache, hemiplegic migraine Hx of venous thrombosis and embolism (09/20/11) Incomplete bladder emptying Old myocardial infarct (09/20/11) Osteoarthritis of hands, bilateral Peripheral edema Plantar fasciitis Slow transit constipation Vaginal prolapse Surgical History H/O hysterectomy for benign disease (09/20/11) H/O ovarian cystectomy H/O rectocele repair H/O varicose vein ligation and stripping History of appendectomy (09/20/11) History of appendectomy History of bladder surgery History of removal of ovarian cyst (09/20/11) S/P total abdominal hysterectomy Family History Mother Myocardial infarction Denies family history of Ovarian cancer Prostate cancer Breast cancer Colorectal cancer Social History Smoking Status: Never smoker Second Hand Exposure: No; Hx Alcohol Use: No Hx Substance Use: No Preferred Language: Yemeni Overnight Caregiver Required: No Beliefs That Will Affect Care: None marital status: / Current Living Situation: Alone current occupational status: employed 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 How many Children do You have: 2 Feels Safe at Home: Yes Childhood Exposure to Second-Hand Smoke: No caffeine: Yes Dental Care, Regularly: No Physical Activity Frequency: Daily Seatbelt Use: always Sunscreen Use: Yes (sometimes) Assistive Devices: None Allergies Allergies Allergy/AdvReac Type Severity Reaction Status Date / Time erythromycin base Allergy Unknown VOMITTING Verified 10/22/21 15:37 ciprofloxacin [From Cipro] AdvReac Severe nausea Verified 10/22/21 15:37 Macrolide Antibiotics AdvReac Unknown STOMACH Verified 10/22/21 15:37 UPSET Home Meds Home Medications Medication Instructions Recorded Confirmed aspirin 81 mg tablet,delayed 81 mg PO HS 06/12/19 10/22/21 release cyanocobalamin (vitamin B-12) 1,000 mcg SUBLINGUAL QAM 05/03/20 10/22/21 1,000 mcg sublingual lozenge latanoprost 0.005 % eye drops 1 drp OPHTHALMIC (EYE) UD 10/22/21 10/22/21 Previous Rx's Medication Instructions Recorded famotidine 20 mg tablet 20 mg PO DAILY #30 tab 12/11/20 levothyroxine 50 mcg tablet 50 mcg PO QAM #30 tab 12/11/20 meclizine 25 mg tablet 25 mg PO TID PRN #30 tab 12/30/20 tamsulosin 0.4 mg capsule 0.4 mg PO HS #30 cap 01/13/21 venlafaxine 225 mg tablet,extended 225 mg PO DAILY #30 tab 01/13/21 release 24 hr ondansetron 4 mg disintegrating 4 mg PO Q8H PRN #30 tab 02/05/21 tablet pantoprazole 40 mg tablet,delayed 40 mg PO QAM #30 tab 03/12/21 release valacyclovir 500 mg tablet 500 mg PO HS #30 tab 03/12/21 furosemide 20 mg tablet 10 mg PO DAILY #30 tab 04/10/21 estradiol (Estrace) 1 g VAGINAL .COMPLEX #42.5 g 05/19/21 fexofenadine 180 mg tablet 180 mg PO QAM #30 tab 05/25/21 (Gaviota Allergy) verapamil 240 mg 24 hr 240 mg PO HS 30 Days #30 cap 06/17/21 capsule,extended release fremanezumab-vfrm 225 mg/1.5 mL 675 mg SQ .COMPLEX #4.5 ml 07/01/21 subcutaneous auto-injector (Ajovy) amitriptyline 50 mg tablet 50 mg PO HS #30 tab 09/09/21 potassium chloride 10 mEq 10 meq PO DAILY #30 tab 10/12/21 tablet,extended release (Klor-Con) lorazepam 0.5 mg tablet 0.5 mg PO QID PRN #120 tab 10/13/21 fluticasone propionate 50 1 spray INTRANASAL QAM PRN #16 g 10/15/21 mcg/actuation nasal spray,suspension rkeljbmrch-tffghwiowvbkg-wcnfozfy 1 - 2 cap PO UD PRN #20 cap 10/16/21 50 mg-325 mg-40 mg capsule buspirone 15 mg tablet 15 mg PO TID #90 tab 10/19/21 Results & Data (ED) Vital Signs Vital Signs - 24 hr 10/22/21 15:38 10/22/21 16:00 10/22/21 16:30 Temperature 36.7 C Temperature Source Oral Pulse Rate 90 75 Pulse Rate [Finger] 64 Pulse Rate from SpO2 Sensor Respiratory Rate 20 19 16 Respiratory Effort / Characteristics Respiratory Depth Respiratory Pattern Blood Pressure 196/114 H 165/108 H Blood Pressure [Left Arm] 188/92 H Blood Pressure Mean 141 127 Blood Pressure Mean [Left Arm] 124 Pulse Oximetry 100 99 Oxygen Delivery Method Room Air Room Air Sepsis Recent Fever Within 48 Hours No Sepsis New/Unexplained Change in Mental Status No Sepsis Action Taken by Nursing No Action Required 10/22/21 17:00 10/22/21 17:31 10/22/21 18:00 Temperature Temperature Source Pulse Rate 74 Pulse Rate [Finger] 73 76 Pulse Rate from SpO2 Sensor 73 Respiratory Rate 20 18 24 Respiratory Effort / Characteristics Non-Labored Spontaneous Respiratory Depth Normal Respiratory Pattern Regular Blood Pressure 186/94 H Blood Pressure [Left Arm] 201/103 H 189/91 H Blood Pressure Mean 124 Blood Pressure Mean [Left Arm] 135 123 Pulse Oximetry 99 98 Oxygen Delivery Method Room Air Room Air Room Air Sepsis Recent Fever Within 48 Hours Sepsis New/Unexplained Change in Mental Status Sepsis Action Taken by Nursing Laboratory Data Result diagrams: 10/22/21 15:25 10/22/21 15:25 Lab Results 10/22/21 10/22/21 10/22/21 Range/Units 15:25 15:25 15:25 WBC 4.00 L (4.8-10.8) K/uL RBC 3.98 L (4.2-5.4) M/uL Hgb 12.4 (12.0-16.0) g/dL Hct 36.8 L (37-47) % MCV 92.5 (80-100) fL MCH 31.2 (25-34) pg MCHC 33.7 (32-36) g/dL RDW Std Deviation 44.8 (36.4-46.3) fL RDW Coeff of Ana 13.2 (11.5-14.5) % Plt Count 250 (130-400) K/uL MPV 8.8 (7.4-10.4) fL Immature Gran % (Auto) 0.3 % Neut % (Auto) 51.2 % Lymph % (Auto) 35.0 % [place] % (Auto) 11.0 % Eos % (Auto) 2.0 % Baso % (Auto) 0.5 % Neut # (Auto) 2.05 (1.4-6.5) K/uL Lymph # (Auto) 1.40 (1.2-3.4) K/uL [place] # (Auto) 0.44 (0.11-0.59) K/uL Eos # (Auto) 0.08 (0-0.5) K/uL Baso # (Auto) 0.02 (0-0.2) K/uL Immature Gran # (Auto) 0.01 (0.00-0.02) K/uL PT 10.4 (9.0-12.0) Seconds INR 1.0 (0.9-1.1) APTT 28.2 (21.0-31.0) Seconds PTT Ratio 1.1 Sodium 133 L (136-145) mmol/L Potassium 3.6 (3.5-5.1) mmol/L Chloride 102 (98-107) mmol/L Carbon Dioxide 26 (21-32) mmol/L Anion Gap 5.0 (3-11) BUN 13 (7-18) mg/dl Creatinine 0.97 (0.6-1.2) mg/dl Est Cr Clr Drug Dosing 61.2 ml/min Est GFR ( Amer) 71.5 ml/min Est GFR (Non-Af Amer) 61.7 ml/min BUN/Creatinine Ratio 13.4 (10-20) Glucose 103 H (70-99) mg/dl POC Glucose (70-99) mg/dl Calcium 8.6 (8.5-10.1) mg/dl Total Bilirubin 0.3 (0.2-1) mg/dl AST 18 (15-37) U/L ALT 32 (12-78) Alkaline Phosphatase 96 (45-117) U/L Troponin I < 0.015 (0-0.045) ng/ml Total Protein 7.3 (6.4-8.2) gm/dl Albumin 3.8 (3.4-5.0) gm/dl Globulin 3.5 (2.5-4.0) gm/dl Albumin/Globulin Ratio 1.1 (0.9-2) Urine Color Urine Appearance (Clear) Urine pH (4.5-7.5) Ur Specific [place] (1.000-1.030) Urine Protein (Negative) Urine Glucose (UA) (Negative) Urine Ketones (Negative) Urine Blood (Negative) Urine Nitrite (Negative) Urine Bilirubin (Negative) Urine Urobilinogen (Negative) Ur Leukocyte Esterase (Negative) SARS-CoV-2 (PCR) (Negative) Influenza Type A (PCR) (Neg) Influenza Type B (PCR) (Neg) RSV (RT-PCR) (Neg) 10/22/21 10/22/21 10/22/21 Range/Units 15:27 15:38 16:25 WBC (4.8-10.8) K/uL RBC (4.2-5.4) M/uL Hgb (12.0-16.0) g/dL Hct (37-47) % MCV (80-100) fL MCH (25-34) pg MCHC (32-36) g/dL RDW Std Deviation (36.4-46.3) fL RDW Coeff of Ana (11.5-14.5) % Plt Count (130-400) K/uL MPV (7.4-10.4) fL Immature Gran % (Auto) % Neut % (Auto) % Lymph % (Auto) % [place] % (Auto) % Eos % (Auto) % Baso % (Auto) % Neut # (Auto) (1.4-6.5) K/uL Lymph # (Auto) (1.2-3.4) K/uL [place] # (Auto) (0.11-0.59) K/uL Eos # (Auto) (0-0.5) K/uL Baso # (Auto) (0-0.2) K/uL Immature Gran # (Auto) (0.00-0.02) K/uL PT (9.0-12.0) Seconds INR (0.9-1.1) APTT (21.0-31.0) Seconds PTT Ratio Sodium (136-145) mmol/L Potassium (3.5-5.1) mmol/L Chloride (98-107) mmol/L Carbon Dioxide (21-32) mmol/L Anion Gap (3-11) BUN (7-18) mg/dl Creatinine (0.6-1.2) mg/dl Est Cr Clr Drug Dosing ml/min Est GFR ( Amer) ml/min Est GFR (Non-Af Amer) ml/min BUN/Creatinine Ratio (10-20) Glucose (70-99) mg/dl POC Glucose 101 H (70-99) mg/dl Calcium (8.5-10.1) mg/dl Total Bilirubin (0.2-1) mg/dl AST (15-37) U/L ALT (12-78) Alkaline Phosphatase (45-117) U/L Troponin I (0-0.045) ng/ml Total Protein (6.4-8.2) gm/dl Albumin (3.4-5.0) gm/dl Globulin (2.5-4.0) gm/dl Albumin/Globulin Ratio (0.9-2) Urine Color Yellow Urine Appearance Clear (Clear) Urine pH 8.0 H (4.5-7.5) Ur Specific [place] 1.019 (1.000-1.030) Urine Protein Negative (Negative) Urine Glucose (UA) Negative (Negative) Urine Ketones Negative (Negative) Urine Blood Negative (Negative) Urine Nitrite Negative (Negative) Urine Bilirubin Negative (Negative) Urine Urobilinogen Negative (Negative) Ur Leukocyte Esterase Negative (Negative) SARS-CoV-2 (PCR) NEGATIVE (Negative) Influenza Type A (PCR) Negative (Neg) Influenza Type B (PCR) Negative (Neg) RSV (RT-PCR) Negative (Neg) Administered Medications Discontinued Medications Ioversol (Optiray 320 125ml) 120 ml IV ONCE ONE Stop: 10/22/21 15:28 Last Admin: 10/22/21 15:27 Dose: 120 ml Documented by: [id number] Ondansetron HCl (Ondansetron Inj 2 Mg/Ml 2 Ml Vial) 4 mg IV NOW STA Stop: 10/22/21 17:39 Last Admin: 10/22/21 17:42 Dose: 4 mg Documented by: [id number] Imaging Data Radiologist's Impression: Chest X-Ray 10/22/21 15:09 XR chest 1V portable CLINICAL HISTORY: Stroke Like Symptoms TECHNIQUE: Single frontal radiograph of the chest was obtained. Comparison: Comparison is made to chest one view 05/03/2020 FINDINGS: No lines and tubes are seen. The cardiomediastinal silhouette is normal. The lungs are clear. No evidence of pleural effusion or pneumothorax. IMPRESSION: No acute chest disease. ACT 112: Negative or not required by law. Electronically signed by: Diogenes Kurtz M.D. 10/22/2021 3:[address] 10/22/21 15:09 CT head/brain wo con CLINICAL HISTORY: Stroke Like Symptoms .*Speech COMPARISON STUDY: No previous studies for comparison. CT DOSE: 638.56 mGycm TECHNIQUE: Standard CT of the Brain was performed without IV contrast. A dose lowering technique was utilized adhering to the principles of ALARA. FINDINGS: Extraaxial space: There is no evidence for subdural hematoma. There are no extra-axial fluid collections. Ventricles and cisterns: The ventricles are normal in size and configuration. There is no evidence for midline shift or mass effect. Parenchyma: There is no subarachnoid or intraparenchymal hemorrhage. There is no evidence for an acute infarct or cerebral edema. There is mild cerebral cortical atrophy and decreased attenuation in the periventricular white matter representing remote small vessel disease. There are no gross mass lesions. Osseous structures: There is no evidence for an acute fracture. The visualized paranasal sinuses are clear. The mastoid air cells are clear bilaterally. Soft tissues: There is no evidence for focal soft tissue swelling. IMPRESSION: No acute intracerebral pathology. Cerebral cortical atrophy and remote small vessel disease. ACT 112: Negative or not required by law. Electronically signed by: Rakesh Hernandez M.D. 10/22/2021 3:18 PM Head CTA 10/22/21 15:09 HEAD CTA HISTORY: Slurred speech. Stroke Like Symptoms TECHNIQUE: Multiaxial CT images of the head were performed both before and after the intravenous administration of contrast to evaluate the major cerebral vessels. Maximum intensity projection images were also obtained. A dose lowering technique was utilized adhering to the principles of ALARA. COMPARISON: Head CT 8 08/17/2021. FINDINGS: There is no mass, hematoma, midline shift, or acute infarct. Visualized intracranial internal carotid arteries, distal vertebral arteries, and basilar artery are widely patent. There is no occlusion or aneurysm within the bilateral ACAs, MCAs, administrative dietitian. There is near diffuse moderate focal narrowing seen throughout the bilateral administrative dietitian. There is also mild near diffuse narrowing of the bilateral M2 segments. The bilateral ACAs are widely patent. The major dural venous sinuses are patent IMPRESSION: 1. Near diffuse mild to moderate narrowing of the bilateral administrative dietitian and distal MCAs. This is new from the prior study and suggests vasospasm. 2. No occlusion or aneurysm within the [place]. ACT 112: Negative or not required by law. Electronically signed by: Jose Caban M.D. 10/22/2021 3:50 PM Neck CTA 10/22/21 15:09 CT angio neck with con CLINICAL HISTORY: Stroke Like Symptoms COMPARISON STUDY: 08/17/2021 TECHNIQUE: CT Angio of the neck was performed.followed by image post processing with coronal, and sagittal MIP reformats.. Stenosis assessment by NASCET criteria. Contrast Volume: Optiray 320, 120 ml FINDINGS: Vascular findings: Right common carotid artery: Patent without significant stenosis. Right internal carotid artery: Patent without significant stenosis.Mild atherosclerotic calcification is seen at its origin. Right vertebral artery: Patent without significant stenosis. Incidental note is made of a dominant right vertebral artery when compared to the left. Left common carotid artery: Patent without significant stenosis. Left internal carotid artery: Patent without significant stenosis.Mild atherosclerotic calcification is seen at its origin. Left vertebral artery: Patent without significant stenosis. Nonvascular findings: The parotid and submandibular salivary glands appear normal. There is no enlarged cervical adenopathy noted. The airway appears patent. There is again evidence for a hypoechoic nodule of the right lobe of the thyroid. The lung apices appear within normal limits. Impression: 1. Essentially negative CTA of the neck with no significant interval change from the previous study. No evidence for significant atherosclerotic plaque or stenosis. ACT 112: Negative or not required by law. Electronically signed by: Rakesh Hernandez M.D. 10/22/2021 3:40 PM Brain MRI 10/22/21 16:32 MR brain wo con CLINICAL HISTORY: Altered mental status. Confusion, aphasia and slurred speech. COMPARISON STUDY: CT brain from 10/22/2021 TECHNIQUE: Multiplanar multisequence images of the Brain were performed without IV contrast. Diffusion weighted imaging and ADC mapping was also performed. FINDINGS: Extra-axial space: There is no evidence for a subdural hematoma, There are no extra-axial fluid collections. Ventricles and cisterns: The ventricles are normal in size and configuration. There is no evidence for midline shift or mass effect. Parenchyma: There is no evidence for an acute hemorrhage or infarct. No acute diffusion abnormalities are noted on diffusion weighted imaging or ADC mapping. There is normal presley-white differentiation. There is bright signal seen on FLAIR weighted sequences within the centrum semiovale and periventricular white matter characteristic of remote small vessel disease. The sulci and gyri appear normal without effacement. The midline structures are unremarkable. The posterior fossa structures appear normal. There is no evidence for mass lesion. Osseous structures: The paranasal sinuses are well aerated. The mastoid air c ells are well aerated. Soft tissues: No focal soft tissue abnormalities are identified. IMPRESSION: No acute intracranial abnormalities. Evidence for remote small vessel disease ACT 112: Negative or not required by law. Electronically signed by: Rakesh Hernandez M.D. 10/22/2021 6:51 PM Discharge Plan Visit Data Chief Complaint: Stroke/CVA Symptoms Stated Complaint: CONFUSION, DIZZINESS, ED Provider: Kojo Bailey Discharge Problem: AMS (altered mental status), Leukopenia, Acute hyponatremia, Slurring of speech Forms Stand Alone Forms: My [facility] [place] [employer] Prescriptions Prescriptions: No Action famotidine 20 mg tablet 20 mg PO DAILY Qty: 30 RF: 11 levothyroxine 50 mcg tablet 50 mcg PO QAM Qty: 30 RF: 11 meclizine 25 mg tablet 25 mg PO TID PRN (Reason: motion sickness) Qty: 30 RF: 1 tamsulosin 0.4 mg capsule 0.4 mg PO HS Qty: 30 RF: 11 venlafaxine 225 mg tablet extended release 24hr 225 mg PO DAILY Qty: 30 RF: 11 valacyclovir 500 mg tablet 500 mg PO HS Qty: 30 RF: 11 pantoprazole 40 mg tablet,delayed release (DR/EC) 40 mg PO QAM Qty: 30 RF: 11 verapamil 240 mg capsule,ext rel. pellets 24 hr 240 mg PO HS 30 Days Qty: 30 RF: 5 Ajovy Autoinjector 225 mg/1.5 mL auto-injector 675 mg SQ .COMPLEX Qty: 4.5 RF: 3 amitriptyline 50 mg tablet 50 mg PO HS Qty: 30 RF: 2 potassium chloride [Klor-Con 10] 10 mEq tablet extended release 10 meq PO DAILY Qty: 30 RF: 11 lorazepam 0.5 mg tablet 0.5 mg PO QID PRN (Reason: Anxiety) Qty: 120 RF: 0 fluticasone propionate 50 mcg/actuation spray,suspension 1 spray intranasal QAM PRN (Reason: Allergy Symptoms) Qty: 16 RF: 3 dtswxwkzax-mmkeypekmaclr-zpqm 50-325-40 mg capsule 1 - 2 cap PO UD PRN (Reason: pain) Qty: 20 RF: 0 buspirone 15 mg tablet 15 mg PO TID Qty: 90 RF: 0 estradiol [Estrace] 0.01 % (0.1 mg/gram) cream 1 g vaginal .COMPLEX Qty: 42.5 RF: 2 ondansetron 4 mg tablet,disintegrating 4 mg PO Q8H PRN (Reason: Nausea And Vomiting) Qty: 30 RF: 3 furosemide 20 mg tablet 10 mg PO DAILY Qty: 30 RF: 3 fexofenadine [Gaviota Allergy] 180 mg tablet 180 mg PO QAM Qty: 30 RF: 3 aspirin 81 mg Tablet,Delayed Release (Dr/Ec) 81 mg PO HS RF: 0 cyanocobalamin (vitamin B-12) 1,000 mcg Lozenge 1,000 mcg SUBLINGUAL QAM RF: 0 latanoprost 0.005 % drops 1 drp ophthalmic (eye) UD RF: 0 Referrals Referrals: Stacey Aguero MD [Primary Care Provider] - Discharge Problem: AMS (altered mental status) Qualifiers: Altered mental status type: unspecified Qualified Code(s): R41.82 - Altered mental status, unspecified Leukopenia Qualifiers: Leukopenia type: unspecified Qualified Code(s): D72.819 - Decreased white blood cell count, unspecified
[2021-10-22 15:39] LABS: Basophils # (auto) 0.02 K/uL (0-0.2); Basophils % (auto) 0.5 %; Eosinophils # (auto) 0.08 K/uL (0-0.5); Hematocrit (blood only) 36.8 % (37-47); Hemoglobin 12.4 g/dL (12.0-16.0); Immature Granulocytes # (auto) 0.01 K/uL (0.00-0.02); Immature Granulocytes % (auto) 0.3 %; Mean Corpuscular Hemoglobin 31.2 pg (25-34); Mean Corpuscular Hgb Conc 33.7 g/dL (32-36); Mean Corpuscular Volume 92.5 fL (80-100); Mean Platelet Volume 8.8 fL (7.4-10.4); Monocytes # (auto) 0.44 K/uL (0.11-0.59); Neutrophils # (auto) 2.05 K/uL (1.4-6.5); Neutrophils % (auto) 51.2 %; Platelet Count 250 K/uL (130-400); RDW Coefficient of Variation 13.2 % (11.5-14.5); RDW Standard Deviation 44.8 fL (36.4-46.3); Red Blood Count 3.98 M/uL (4.2-5.4)
--- NOTE | 2021-10-22 15:41 | XRay Report ---
XR chest 1V portable CLINICAL HISTORY: Stroke Like Symptoms TECHNIQUE: Single frontal radiograph of the chest was obtained. Comparison: Comparison is made to chest one view 05/03/2020 FINDINGS: No lines and tubes are seen. The cardiomediastinal silhouette is normal. The lungs are clear. No evid ence of pleural effusion or pneumothorax. IMPRESSION: No acute chest disease. ACT 112: Negative or not required by law. Electronically signed by: Diogeens Kurtz M.D. 10/22/2021 3:40 PM
--- NOTE | 2021-10-22 15:41 | CT Scan Report ---
CT angio neck with con CLINICAL HISTORY: Stroke Like Symptoms COMPARISON STUDY: 08/17/2021 TECHNIQUE: CT Angio of the neck was performed.followed by image post processing with coronal, and sa gittal MIP reformats.. Stenosis assessment by NASCET criteria. Contrast Volume: Optiray 320, 120 ml FINDINGS: Vascular findings: Right common carotid artery: Patent without significant stenosis. Right internal carotid artery: Patent without significant stenosis.Mild atherosclerotic calcification is seen at its origin. Right vertebral artery: Patent without significant stenosis. Incidental note is made of a dominant ri ght vertebral artery when compared to the left. Left common carotid artery: Patent without significant stenosis. Left internal carotid artery: Patent without significant stenosis.Mild atherosclerotic calcification is seen at its origin. Left vertebral artery: Patent without significant stenosis. Nonvascular findings: The parotid and submandibular salivary glands appear normal. There is no enlarged cervical adenopathy noted. The airway appears patent. There is again evidence for a hypoechoic nodule of the right lobe of the thyroid. The lung apices appear within normal limits. Impression: 1. Essentially negative CTA of the neck with no significant interval change from the previous study. No evidence for significant atherosclerotic plaque or stenosis. ACT 112: Negative or not required by law. Electronically signed by: Rakesh Hernandez M.D. 10/22/2021 3:40 PM
--- NOTE | 2021-10-22 15:51 | CT Scan Report ---
HEAD CTA HISTORY: Slurred speech. Stroke Like Symptoms TECHNIQUE: Multiaxial CT images of the head were performed both before and after the intravenous admi nistration of contrast to evaluate the major cerebral vessels. Maximum intensity projection images we re also obtained. A dose lowering technique was utilized adhering to the principles of ALARA. COMPARISON: Head CT 8 08/17/2021. FINDINGS: There is no mass, hematoma, midline shift, or acute infarct. Visualized intracranial r d internship al carotid arteries, distal vertebral arteries, and basilar artery are widely patent. There is no occ lusion or aneurysm within the bilateral ACAs, MCAs, alpaca farmer. There is near diffuse moderate focal narrow ing seen throughout the bilateral alpaca farmer. There is also mild near diffuse narrowing of the bilateral M2 segments. The bilateral ACAs are widely patent. The major dural venous sinuses are patent IMPRESSION: 1. Near diffuse mild to moderate narrowing of the bilateral alpaca farmer and distal MCAs. This is new from th e prior study and suggests vasospasm. 2. No occlusion or aneurysm within the [place]. ACT 112: Negative or not required by law. Electronically signed by: Jose Caban M.D. 10/22/2021 3:50 PM
[2021-10-22 15:52] LABS: Partial Thromboplastin Ratio 1.1; Partial Thromboplastin Time 28.2 Seconds (21.0-31.0); Prothrombin Time 10.4 Seconds (9.0-12.0)
[2021-10-22 15:57] LABS: Alanine Aminotransferase 32 (12-78); Albumin Level 3.8 gm/dl (3.4-5.0); Aspartate Aminotransferase 18 U/L (15-37); BUN Creatinine Ratio 13.4 (10-20); Blood Urea Nitrogen 13 mg/dl (7-18); Calcium 8.6 mg/dl (8.5-10.1); Carbon Dioxide 26 mmol/L (21-32); Chloride 102 mmol/L (98-107); Creatinine Clr Calc Pharmacy 61.2 ml/min; Est GFR (African American) 71.5 ml/min; Est GFR (Non-African American) 61.7 ml/min; Glucose 103 mg/dl (70-99); Potassium 3.6 mmol/L (3.5-5.1); Sodium 133 mmol/L (136-145)
[2021-10-22 16:01] LABS: Albumin Globulin Ratio 1.1 (0.9-2); Alkaline Phosphatase 96 U/L (45-117); Bilirubin,Total 0.3 mg/dl (0.2-1); Globulin 3.5 gm/dl (2.5-4.0); Total Protein 7.3 gm/dl (6.4-8.2); Troponin I < 0.015 ng/ml (0-0.045)
--- NOTE | 2021-10-22 16:15 | Medical Student Progress Note ---
Date of Service October 22, 2021 Results & Data ([facility]) Vital Signs (Past 12 Hours) Vital Signs Temp Pulse Resp BP Pulse Ox 10/22/21 15:38 36.7 C 90 20 196/114 H 100
[2021-10-22 16:40] LABS: Influenza A virus by PCR Negative (Neg); Influenza B virus by PCR Negative (Neg); RSV by PCR Negative (Neg); SARS CoV2 RNA(COVID-19) InHosp NEGATIVE (Negative)
[2021-10-22 16:44] LABS: Appearance Urine Clear (Clear); Bilirubin Urine Negative (Negative); Blood Urine Negative (Negative); Color Urine Yellow; Glucose Urine UA Negative (Negative); Ketones Urine Negative (Negative); Leukocyte Esterase Urine Negative (Negative); Nitrite Urine Negative (Negative); Protein Urine Negative (Negative); Specific Gravity Urine 1.019 (1.000-1.030); Urobilinogen Urine Negative (Negative)
--- NOTE | 2021-10-22 17:17 | History & Physical Report ---
Date of Service October 22, 2021 Assessment & Plan (1) Stroke-like symptoms: Plan: Symptoms most likely correlated with complex migraine given history of this, bilateral symptoms and associated with severe headache. We will complete stroke work-up per telemetry stroke recommendations with MRI brain without contrast, lipid panel, HbA1c with a.m. labs. Will defer consulting neurology unless MRI is positive. PT/OT eval's (2) Migraine: Plan: Defer migraine treatment pending MRI results. (3) AMS (altered mental status): Plan: As above (4) Slurring of speech: Plan: With expressive dysphagia. As above. Speech consult (5) Restless legs syndrome: Plan: Ferritin and transferrin saturation with a.m. labs On no specific medications for this (6) Depression with anxiety: Plan: Lorazepam 0.5 mg p.o. 4 times daily as needed Continue venlafaxine to 25 mg p.o. daily Continue BuSpar 15 mg p.o. 3 times daily (7) Hypothyroidism: Plan: TSH WNL March 2021 Continue levothyroxine 50 mcg p.o. daily Plan: VTE prophylaxis -chemical prophylaxis deferred pending clinical course, suspect low risk and short admission Diet -heart healthy Disposition -observation status to [facility] telemetry Admission and Anticipated Discharge Date Admission Date: October 22, 2021 History of Present Illness Chief Complaint: Confusion, slurred speech, bilateral hand weakness and numbness Primary Care Provider: Stacey Aguero MD Charley Correa is a 65 year old right-handed female with past medical history of TIAs and complex migraine who presents to the ER with confusion, slurred speech, intermittent weakness and numbness in both arms and legs. The patient reports getting her Ajovy injection today. She felt dizzy coming back to her house but was able to make herself some pork on the stove. While sitting down to eat this she remembers dropping the plate with a right hand due to weakness in this arm. She went to clean this up but was very unbalanced and fell onto the floor. She became very confused and was slurring her words. Her neighbor found her and called EMS. Per ER night EMS noted her speech deteriorating throughout the transport. Since coming to the emergency room she reports worsening severe pulsating headache bilaterally with associated nausea and vomiting. She is having intermittent bilateral extremity numbness more so in her right upper extremity. She denies any current weakness. She is still having some difficulty with word finding ability. No diplopia or loss of vision however lights aggravate her headache. She denies any chest pain, shortness of breath, fever, chills, urinary symptoms, abdominal pain, diarrhea, constipation, melena, bright red blood in stool. In the ER a stroke alert was called. Last known well was indeterminable therefore she was not a TPA candidate. Telestroke neurologist recommended further work-up for a stroke. She was referred to medicine for admission ongoing management of this. I suspect since the stroke call she is much less confused and I am able to gain a much more detailed history than the ER note. Allergies Allergy/AdvReac Type Severity Reaction Status Date / Time erythromycin base Allergy Unknown VOMITTING Verified 10/22/21 15:37 ciprofloxacin [From Cipro] AdvReac Severe nausea Verified 10/22/21 15:37 Macrolide Antibiotics AdvReac Unknown STOMACH Verified 10/22/21 15:37 UPSET Home Medications Medication Instructions Recorded Confirmed Type aspirin 81 mg tablet,delayed 81 mg PO HS 06/12/19 10/22/21 History release cyanocobalamin (vitamin B-12) 1,000 mcg SUBLINGUAL QAM 05/03/20 10/22/21 History 1,000 mcg sublingual lozenge famotidine 20 mg tablet 20 mg PO DAILY #30 tab 12/11/20 10/22/21 Rx levothyroxine 50 mcg tablet 50 mcg PO QAM #30 tab 12/11/20 10/22/21 Rx meclizine 25 mg tablet 25 mg PO TID PRN #30 tab 12/30/20 10/22/21 Rx tamsulosin 0.4 mg capsule 0.4 mg PO HS #30 cap 01/13/21 10/22/21 Rx venlafaxine 225 mg tablet,extended 225 mg PO DAILY #30 tab 01/13/21 10/22/21 Rx release 24 hr ondansetron 4 mg disintegrating 4 mg PO Q8H PRN #30 tab 02/05/21 10/22/21 Rx tablet pantoprazole 40 mg tablet,delayed 40 mg PO QAM #30 tab 03/12/21 10/22/21 Rx release valacyclovir 500 mg tablet 500 mg PO HS #30 tab 03/12/21 10/22/21 Rx furosemide 20 mg tablet 10 mg PO DAILY #30 tab 05/28/21 12/09/21 Rx estradiol (Estrace) 1 g VAGINAL .COMPLEX #42.5 g 05/19/21 10/22/21 Rx fexofenadine 180 mg tablet 180 mg PO QAM #30 tab 05/25/21 10/22/21 Rx ([facility]) verapamil 240 mg 24 hr 240 mg PO HS 30 Days #30 cap 06/17/21 10/22/21 Rx capsule,extended release fremanezumab-vfrm 225 mg/1.5 mL 675 mg SQ .COMPLEX #4.5 ml 07/01/21 10/22/21 Rx subcutaneous auto-injector (Ajovy) amitriptyline 50 mg tablet 50 mg PO HS #30 tab 09/09/21 10/22/21 Rx potassium chloride 10 mEq 10 meq PO DAILY #30 tab 10/12/21 10/22/21 Rx tablet,extended release (Klor-Con) lorazepam 0.5 mg tablet 0.5 mg PO QID PRN #120 tab 10/13/21 10/22/21 Rx fluticasone propionate 50 1 spray INTRANASAL QAM PRN #16 g 10/15/21 10/22/21 Rx mcg/actuation nasal spray,suspension onzhqqliku-mabxvcsnebqzi-anahbnvi 1 - 2 cap PO UD PRN #20 cap 10/16/21 10/22/21 Rx 50 mg-325 mg-40 mg capsule buspirone 15 mg tablet 15 mg PO TID #90 tab 10/19/21 10/22/21 Rx latanoprost 0.005 % eye drops 1 drp OPHTHALMIC (EYE) UD 10/22/21 10/22/21 History Past Med/Surg History Medical History Abnormal brain MRI Achalasia, esophageal Acid reflux Arthralgia of multiple sites Bladder retention of urine Cervical radiculopathy Esophageal dysmotility Headache, hemiplegic migraine Hx of venous thrombosis and embolism (09/20/11) Incomplete bladder emptying Old myocardial infarct (09/20/11) Osteoarthritis of hands, bilateral Peripheral edema Plantar fasciitis Slow transit constipation Vaginal prolapse Surgical History H/O hysterectomy for benign disease (09/20/11) H/O ovarian cystectomy H/O rectocele repair H/O varicose vein ligation and stripping History of appendectomy (09/20/11) History of appendectomy History of bladder surgery History of removal of ovarian cyst (09/20/11) S/P total abdominal hysterectomy Family History Mother Myocardial infarction Denies family history of Ovarian cancer Prostate cancer Breast cancer Colorectal cancer Social History Smoking Status: Never smoker Second Hand Exposure: No; Hx Alcohol Use: No Hx Substance Use: No Preferred Language: Telugu Gang Leader Required: No Beliefs That Will Affect Care: None marital status: / Current Living Situation: Alone current occupational status: employed 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 How many Children do You have: 2 Feels Safe at Home: Yes Childhood Exposure to Second-Hand Smoke: No caffeine: Yes Dental Care, Regularly: No Physical Activity Frequency: Daily Seatbelt Use: always Sunscreen Use: Yes (sometimes) Assistive Devices: None Review of Systems Review of Systems: All systems reviewed & are unremarkable except as noted in HPI & below Physical Exam Constitutional: well developed and + acute distress (Severe headache); + not well nourished Eyes: + anicteric sclerae and EOM intact bilaterally (No diplopia); + no PERRL (Unable to perform due to light sensitivity) and normal pupil size ENMT: external ear and nose normal, oropharynx normal Neck: trachea midline, no thyromegaly Respiratory: normal respiratory effort, lungs clear to auscultation Cardiovascular: RRR, no murmur, no edema Gastrointestinal (Abdomen): normal bowel sounds, soft, nontender, no hepatosplenomegaly Musculoskeletal: no cyanosis or clubbing, extremities motor strength 5/5 Skin: no rashes, warm and dry Neurologic: moves all extremities, awake and + confused; no focal motor deficits Motor/Sensory: + sensory deficit (Numbness of right arm from fingers to elbow); no pronator drift Cranial Nerves: EOM intact bilaterally (No diplopia), normal facial strength, tongue midline, able to rotate head bilaterally and able to elevate shoulders bilaterally; + no PERRL (Unable to test due to light sensitivity) Psychiatric: Orientation: alert and oriented x 3 Affect: + anxious affect and + tearful affect Results & Data Results & Data ([facility]) Vital Signs (Past 12 Hours) Vital Signs Temp Pulse Pulse Resp BP BP Pulse Ox 10/22/21 16:30 64 16 188/92 H 99 10/22/21 15:38 36.7 C 90 20 196/114 H 100 Laboratory Results Abnormal lab results 10/22/21 10/22/21 10/22/21 Range/Units 15:25 15:25 15:27 WBC 4.00 L (4.8-10.8) K/uL RBC 3.98 L (4.2-5.4) M/uL Hct 36.8 L (37-47) % Sodium 133 L (136-145) mmol/L Glucose 103 H (70-99) mg/dl POC Glucose 101 H (70-99) mg/dl Urine pH (4.5-7.5) 10/22/21 Range/Units 16:25 WBC (4.8-10.8) K/uL RBC (4.2-5.4) M/uL Hct (37-47) % Sodium (136-145) mmol/L Glucose (70-99) mg/dl POC Glucose (70-99) mg/dl Urine pH 8.0 H (4.5-7.5) Diagnostic Findings XR chest 1V portable CLINICAL HISTORY: Stroke Like Symptoms TECHNIQUE: Single frontal radiograph of the chest was obtained. Comparison: Comparison is made to chest one view 05/03/2020 FINDINGS: No lines and tubes are seen. The cardiomediastinal silhouette is normal. The lungs are clear. No evidence of pleural effusion or pneumothorax. IMPRESSION: No acute chest disease. CT head/brain wo con CLINICAL HISTORY: Stroke Like Symptoms .*Speech COMPARISON STUDY: No previous studies for comparison. CT DOSE: 638.56 mGycm TECHNIQUE: Standard CT of the Brain was performed without IV contrast. A dose lowering technique was utilized adhering to the principles of ALARA. FINDINGS: Extraaxial space: There is no evidence for subdural hematoma. There are no extra-axial fluid collections. Ventricles and cisterns: The ventricles are normal in size and configuration. There is no evidence for midline shift or mass effect. Parenchyma: There is no subarachnoid or intraparenchymal hemorrhage. There is no evidence for an acute infarct or cerebral edema. There is mild cerebral cortical atrophy and decreased attenuation in the periventricular white matter representing remote small vessel disease. There are no gross mass lesions. Osseous structures: There is no evidence for an acute fracture. The visualized paranasal sinuses are clear. The mastoid air cells are clear bilaterally. Soft tissues: There is no evidence for focal soft tissue swelling. IMPRESSION: No acute intracerebral pathology. Cerebral cortical atrophy and remote small vessel disease. HEAD CTA HISTORY: Slurred speech. Stroke Like Symptoms TECHNIQUE: Multiaxial CT images of the head were performed both before and after the intravenous administration of contrast to evaluate the major cerebral vessels. Maximum intensity projection images were also obtained. A dose lowering technique was utilized adhering to the principles of ALARA. COMPARISON: Head CT 8 08/17/2021. FINDINGS: There is no mass, hematoma, midline shift, or acute infarct. Visualized intracranial internal carotid arteries, distal vertebral arteries, and basilar artery are widely patent. There is no occlusion or aneurysm within the bilateral ACAs, MCAs, lift truck mechanic. There is near diffuse moderate focal narrowing seen throughout the bilateral lift truck mechanic. There is also mild near diffuse narrowing of the bilateral M2 segments. The bilateral ACAs are widely patent. The major dural venous sinuses are patent IMPRESSION: 1. Near diffuse mild to moderate narrowing of the bilateral lift truck mechanic and distal MCAs. This is new from the prior study and suggests vasospasm. 2. No occlusion or aneurysm within the [place]. CT angio neck with con CLINICAL HISTORY: Stroke Like Symptoms COMPARISON STUDY: 08/17/2021 TECHNIQUE: CT Angio of the neck was performed.followed by image post processing with coronal, and sagittal MIP reformats.. Stenosis assessment by NASCET criteria. Contrast Volume: Optiray 320, 120 ml FINDINGS: Vascular findings: Right common carotid artery: Patent without significant stenosis. Right internal carotid artery: Patent without significant stenosis.Mild atherosclerotic calcification is seen at its origin. Right vertebral artery: Patent without significant stenosis. Incidental note is made of a dominant right vertebral artery when compared to the left. Left common carotid artery: Patent without significant stenosis. Left internal carotid artery: Patent without significant stenosis.Mild atherosclerotic calcification is seen at its origin. Left vertebral artery: Patent without significant stenosis. Nonvascular findings: The parotid and submandibular salivary glands appear normal. There is no enlarged cervical adenopathy noted. The airway appears patent. There is again evidence for a hypoechoic nodule of the right lobe of the thyroid. The lung apices appear within normal limits. Impression: 1. Essentially negative CTA of the neck with no significant interval change from the previous study. No evidence for significant atherosclerotic plaque or stenosis. Medications Administered ER medications given: Ondansetron 4 mg IV ECG Indication: altered mental status Rate (beats per minute): 86 Rhythm: normal sinus Findings: + nonspecific-ST abn Comparison ECG Date: from (August 17, 2021) Change: no significant change Code Status & VTE Plan Code Status DNR/DNI per patient wishes VTE Prophylaxis Plan VTE Prophylaxis will be ordered: No Reason for no VTE drug order: Treatment not indicated Reason for no VTE mechanical prophylaxis: Treatment not indicated PG Care Time/CCT Total # of Minutes Spent Total Time Spent with Patient: Total time spent is greater than 50% in coordination of care (as documented) at patient's floor/unit and/or counseling patient: Coding Level of Care Code INT OBSERVATION CARE 70M LVL 3 Diagnoses AMS (altered mental status) R41.82 Altered mental status type: unspecified Slurring of speech R47.81 Restless legs syndrome G25.81 Migraine G43.009 Intractability: not intractable Migraine type: without aura Status migrainosus presence: without status migrainosus Depression with anxiety F41.8 Hypothyroidism E03.9 Stroke-like symptoms R29.90 (1) Migraine Intractability: not intractable Migraine type: without aura Status migrainosus presence: without status migrainosus Qualified Code(s): G43.009 - Migraine without aura, not intractable, without status migrainosus (2) AMS (altered mental status) Altered mental status type: unspecified Qualified Code(s): R41.82 - Altered mental status, unspecified
[2021-10-22] MEDS ORDERED: ONDANSETRON INJ 2 MG/ML 2 ML VIAL IV STA ×2 (17:38→20:01)
--- NOTE | 2021-10-22 18:53 | Magnetic Resonance Report ---
MR brain wo con CLINICAL HISTORY: Altered mental status. Confusion, aphasia and slurred speech. COMPARISON STUDY: CT brain from 10/22/2021 TECHNIQUE: Multiplanar multisequence images of the Brain were performed without IV contrast. Diffusi on weighted imaging and ADC mapping was also performed. FINDINGS: Extra-axial space: There is no evidence for a subdural hematoma, There are no extra-axial fluid benoit ections. Ventricles and cisterns: The ventricles are normal in size and configuration. There is no evidence f or midline shift or mass effect. Parenchyma: There is no evidence for an acute hemorrhage or infarct. No acute diffusion abnormalities are noted on diffusion weighted imaging or ADC mapping. There is normal presley-white differentiation. There is bright signal seen on FLAIR weighted sequences within the centrum semiovale and periventric ular white matter characteristic of remote small vessel disease. The sulci and gyri appear normal wit hout effacement. The midline structures are unremarkable. The posterior fossa structures appear giovanni l. There is no evidence for mass lesion. Osseous structures: The paranasal sinuses are well aerated. The mastoid air cells are well aerated. Soft tissues: No focal soft tissue abnormalities are identified. IMPRESSION: No acute intracranial abnormalities. Evidence for remote small vessel disease ACT 112: Negative or not required by law. Electronically signed by: Rakesh Hernandez M.D. 10/22/2021 6:51 PM
[2021-10-22 19:44] LABS: Magnesium 2.3 mg/dl (1.8-2.4)
[2021-10-22] MEDS ORDERED: SUMAtriptan succinate 6 MG/0.5 ML VIAL SQ STA (19:49)
[2021-10-22] MEDS ORDERED: BUTALBITAL/ACETAMIN/CAFFEINE TAB PO STA ×2 (19:49→22:09)
[2021-10-22] MEDS ORDERED: LORazepam 0.5 MG/1 ML VIAL IV STA (19:52)
[2021-10-22] MEDS ORDERED: PHARMACIST DISCHARGE MED REC CONSULT PRN (22:30)
[2021-10-22] MEDS ORDERED: ONDANSETRON 4 MG OD TAB PO PRN (23:10)
[2021-10-22] MEDS: AMITRIPTYLINE HCL 50 MG TAB PO SCH (23:35)
[2021-10-22] MEDS: busPIRone 15 MG TAB PO SCH (23:35)
[2021-10-22] MEDS: ASPIRIN 81 MG ECTAB PO SCH (23:35)
[2021-10-22] MEDS: TAMSULOSIN HCL 0.4 MG CAP PO SCH (23:36)
[2021-10-22] MEDS: valACYclovir HCL 500 MG TABLET PO SCH (23:36)
[2021-10-22] MEDS: VERAPAMIL HCL 240 MG TABCR PO SCH (23:37)
[2021-10-23] MEDS: LORazepam 0.5 MG TAB PO PRN ×2 (01:41→15:17)
--- NOTE | 2021-10-23 02:20 | Communication Note ---
Date of Service: October 22, 2021 MRI brain without contrast with no acute intracranial abnormalities. The patient has ongoing expressive dysphagia with severe pulsating headache made wo rse by light, nausea and vomiting mild right upper extremity numbness. Per prior neurology notes we will avoid triptans. Patient given Fioricet for migraine and lorazepam for anxiety/nausea. She appeared markedly improved after this although reports a burning, pulsating pain when she opens her left eye. Bilateral extremity numbness resolved. Headache still present but much improved. Will give second dose of Fioricet. Given negative MRI and improvement of symptoms with treatment for migraine I do not see a reason for neurology consult or further stroke work-up at this time.
[2021-10-23 05:46] LABS: Basophils # (auto) 0.02 K/uL (0-0.2); Basophils % (auto) 0.3 %; Eosinophils # (auto) 0.01 K/uL (0-0.5); Eosinophils % (auto) 0.1 %; Hemoglobin 13.1 g/dL (12.0-16.0); Immature Granulocytes # (auto) 0.01 K/uL (0.00-0.02); Immature Granulocytes % (auto) 0.1 %; Lymphocytes # (auto) 1.73 K/uL (1.2-3.4); Lymphocytes % (auto) 23.1 %; Mean Corpuscular Hemoglobin 30.8 pg (25-34); Mean Corpuscular Hgb Conc 33.6 g/dL (32-36); Mean Corpuscular Volume 91.8 fL (80-100); Mean Platelet Volume 9.1 fL (7.4-10.4); Monocytes # (auto) 0.71 K/uL (0.11-0.59); Monocytes % (auto) 9.5 %; Neutrophils # (auto) 5.02 K/uL (1.4-6.5); Neutrophils % (auto) 66.9 %; Platelet Count 288 K/uL (130-400); RDW Coefficient of Variation 13.3 % (11.5-14.5); RDW Standard Deviation 44.4 fL (36.4-46.3); Red Blood Count 4.25 M/uL (4.2-5.4)
[2021-10-23 06:08] LABS: BUN Creatinine Ratio 14.1 (10-20); Calcium 9.2 mg/dl (8.5-10.1); Creatinine Clr Calc Pharmacy 66.7 ml/min; Est GFR (African American) 79.4 ml/min; Est GFR (Non-African American) 68.5 ml/min; Potassium 3.4 mmol/L (3.5-5.1)
[2021-10-23 06:13] LABS: Ferritin 49.7 ng/ml (8-388)
[2021-10-23] MEDS: LEVOTHYROXINE SODIUM 50 MCG TABLET PO SCH (06:29)
[2021-10-23 06:31] LABS: Estimated Average Glucose 128 mg/dl; Hemoglobin A1C 6.1 % (4.5-5.6)
[2021-10-23] MEDS: VENLAFAXINE HCL XR 75 MG CAPXR PO SCH (09:33)
[2021-10-23] MEDS: PANTOprazole 40 MG TAB PO SCH (09:33)
[2021-10-23] MEDS: POTASSIUM CHLORIDE 10 MEQ TABCR PO SCH (09:34)
[2021-10-23] MEDS: CYANOCOBALAMIN 500 MCG TABLET (VITAMIN B-12) PO SCH (09:34)
[2021-10-23] MEDS: busPIRone 15 MG TAB PO SCH ×3 (09:34→20:29)
[2021-10-23] MEDS: FEXOFENADINE HCL 180 MG TAB PO SCH (09:34)
[2021-10-23] MEDS: FAMOTIDINE 20 MG TAB PO SCH (09:34)
[2021-10-23] MEDS: BUTALBITAL/ACETAMIN/CAFFEINE TAB PO PRN ×3 (09:37→18:18)
[2021-10-23] MEDS ORDERED: diphenhydrAMINE 50 MG/ML VIAL IV ONE (11:45)
[2021-10-23] MEDS ORDERED: diphenhydrAMINE 50 MG/ML VIAL ONE (11:56)
[2021-10-23] MEDS ORDERED: PROCHLORPERAZINE 5 MG/ML 2 ML VIAL ONE (11:57)
[2021-10-23] MEDS ORDERED: PROCHLORPERAZINE 10 MG in SYRINGE 8 ML IV ONE (12:15)
--- NOTE | 2021-10-23 14:49 | Electrocardiogram Report ---
Test Reason : Blood Pressure : / mmHG Vent. Rate : 086 BPM Atrial Rate : 086 BPM P-R Int : 158 ms QRS Dur : 082 ms QT Int : 400 ms P-R-T Axes : 062 010 039 degrees QTc Int : 478 ms Poor data quality, interpretation may be adversely affected Normal sinus rhythm Possible Left atrial enlargement Nonspecific ST and T wave abnormality Abnormal ECG When compared with ECG of 17-AUG-2021 12:35, No significant change was found Confirmed by Everton Jhaveri ([id number]) on 10/23/2021 2:49:25 PM Referred By: REFERRED SELF Confirmed By:Everton Jhaveri
--- NOTE | 2021-10-23 18:23 | Hospitalist Progress Note ---
Date of Service October 23, 2021 Assessment & Plan (1) Stroke-like symptoms: Plan: Patient with history of complex migraine, generally well controlled on Ajovy Symptoms improved last night, have again returned today persistent. Have not improved with Fioricet Trial Benadryl with Compazine infusion Vasospasm appreciated on CTA, avoid triptans Patient on verapamil 240 nightly - MRI: IMPRESSION: No acute intracranial abnormalities. Evidence for remote small vessel disease - CTA: 1. Essentially negative CTA of the neck with no significant interval change from the previous study. No evidence for significant atherosclerotic plaque or stenosis. - CTA-Head: 1. Near diffuse mild to moderate narrowing of the bilateral general agent and distal MCAs. This is new from the prior study and suggests vasospasm. 2. No occlusion or aneurysm within the [place]. Stroke work-up ordered admission. Triglycerides normal, cholesterol 369, LDL 279. -Patient with extremely high LDL, 379. On chart review was recently in 190s. Patient reports some family members with high cholesterol but that they do "okay with meds ". She reports that she has been trialed on multiple statins, developed severe myopathy and aches with severe proximal leg weakness that made it difficult for her to walk. Reports her district administrative assistant had attempted to try her on multiple formulations, 1 of which she tolerated for about 2 weeks before again developing severe muscle weakness and pain. 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 Recommend adding Zetia at this time, and follow-up for Repatha as an outpatient. Patient agreeable to this. -Remains with intermittent inadequate migraine control, but starting to improve. somewhat improving in evening. Continue Fioricet, IV Zofran versus Compazine plus Benadryl as needed. (2) Migraine: Plan: Defer migraine treatment pending MRI results. (3) AMS (altered mental status): Plan: As above (4) Slurring of speech: Plan: With expressive dysphagia. As above. Speech consult (5) Restless legs syndrome: Plan: Ferritin and transferrin saturation with a.m. labs On no specific medications for this (6) Depression with anxiety: Plan: Lorazepam 0.5 mg p.o. 4 times daily as needed Continue venlafaxine to 25 mg p.o. daily Continue BuSpar 15 mg p.o. 3 times daily (7) Hypothyroidism: Plan: TSH WNL March 2021 Continue levothyroxine 50 mcg p.o. daily Plan: VTE prophylaxis -chemical prophylaxis deferred pending clinical course, suspect low risk and short admission Diet -heart healthy Disposition -observation status to [facility] telemetry Admission and Anticipated Discharge Date Admission Date: October 22, 2021 Subjective She reports that she was okay overnight, and had a rate had started to improve but has again returned at near full intensity this morning at time of assessment. Taking Fioricet about an hour before provider visit, no benefit yet. She feels her headache is a pressure pain above her eyebrow. She has experienced vision change and a feeling of her eyes going sideways with migraines, this returned this morning although she feels her vision is relatively okay at time of assessment. Some nausea, no vomiting this morning. Reviewed MRI results, CT results. Patient is very concerned as the last time she had a very severe migraine attack she had a stroke follow-up after. Review of Systems Review of Systems: All systems reviewed & are unremarkable except as noted in Subjective Physical Exam Physical Exam: General: A&Ox3. NAD. Cooperative. Appears uncomfortable, light sensitive. HEENT: Atraumatic, normocephalic. Conjugate gaze. Pupils equal and reactive to light. Visual acuity and hearing grossly intact. Pulm: CTAB A&P. -wheezes, -rales, -rhonchi. Symmetrical chest rise. No increase work of breathing. No respiratory distress. Cardiac: RRR, -mrg. Radial pulses intact and symmetrical. Abdominal: Nontender, nondistended, soft. BS present. Extremities: Moving all extremities equally. Results & Data Results & Data ([facility]) Vital Signs (Past 12 Hours) Vital Signs Temp Pulse Pulse Resp BP BP BP 10/23/21 15:33 61 10/23/21 15:00 36.8 C 64 16 165/80 H 10/23/21 13:40 72 16 118/71 10/23/21 10:46 63 20 145/83 H 10/23/21 10:00 63 17 139/74 10/23/21 09:00 70 17 124/64 10/23/21 08:00 71 19 130/72 10/23/21 07:37 37.2 C 85 18 154/51 H 10/23/21 07:00 59 L 16 127/62 Pulse Ox 10/23/21 15:33 10/23/21 15:00 98 10/23/21 13:40 96 10/23/21 10:46 95 10/23/21 10:00 10/23/21 09:00 10/23/21 08:00 10/23/21 07:37 93 10/23/21 07:00 PG Care Time/CCT Total # of Minutes Spent Total Time Spent with Patient: Total time spent is greater than 50% in coordination of care (as documented) at patient's floor/unit and/or counseling patient: Coding Level of Care Code 24455 Subseq Hosp Care Lvl 2 Diagnoses Stroke-like symptoms R29.90 Migraine G43.009 Migraine type: without aura Status migrainosus presence: without status migrainosus Intractability: not intractable AMS (altered mental status) R41.82 Altered mental status type: unspecified Slurring of speech R47.81 Restless legs syndrome G25.81 Depression with anxiety F41.8 Hypothyroidism E03.9 (1) Migraine Migraine type: without aura Status migrainosus presence: without status migrainosus Intractability: not intractable Qualified Code(s): G43.009 - Migraine without aura, not intractable, without status migrainosus (2) AMS (altered mental status) Altered mental status type: unspecified Qualified Code(s): R41.82 - Altered mental status, unspecified
[2021-10-23] MEDS: VERAPAMIL HCL 240 MG TABCR PO SCH (19:46)
[2021-10-23] MEDS: valACYclovir HCL 500 MG TABLET PO SCH (20:28)
[2021-10-23] MEDS: ASPIRIN 81 MG ECTAB PO SCH (20:28)
[2021-10-23] MEDS: AMITRIPTYLINE HCL 50 MG TAB PO SCH (20:29)
[2021-10-23] MEDS: TAMSULOSIN HCL 0.4 MG CAP PO SCH (20:29)
[2021-10-24] MEDS: LEVOTHYROXINE SODIUM 50 MCG TABLET PO SCH (05:59)
[2021-10-24 06:57] LABS: Basophils # (auto) 0.03 K/uL (0-0.2); Basophils % (auto) 0.6 %; Eosinophils # (auto) 0.09 K/uL (0-0.5); Eosinophils % (auto) 1.8 %; Hematocrit (blood only) 37.8 % (37-47); Hemoglobin 12.5 g/dL (12.0-16.0); Immature Granulocytes # (auto) 0.01 K/uL (0.00-0.02); Immature Granulocytes % (auto) 0.2 %; Lymphocytes # (auto) 1.95 K/uL (1.2-3.4); Lymphocytes % (auto) 39.6 %; Mean Corpuscular Hgb Conc 33.1 g/dL (32-36); Mean Corpuscular Volume 93.8 fL (80-100); Mean Platelet Volume 9.1 fL (7.4-10.4); Monocytes # (auto) 0.53 K/uL (0.11-0.59); Monocytes % (auto) 10.8 %; Neutrophils # (auto) 2.32 K/uL (1.4-6.5); Platelet Count 267 K/uL (130-400); RDW Standard Deviation 45.1 fL (36.4-46.3); Red Blood Count 4.03 M/uL (4.2-5.4); White Blood Count 4.93 K/uL (4.8-10.8)
[2021-10-24 07:30] LABS: BUN Creatinine Ratio 15.8 (10-20); Calcium 8.8 mg/dl (8.5-10.1); Creatinine Clr Calc Pharmacy 61.6 ml/min; Est GFR (African American) 71.5 ml/min; Est GFR (Non-African American) 61.7 ml/min; Potassium 3.9 mmol/L (3.5-5.1)
[2021-10-24] MEDS: busPIRone 15 MG TAB PO SCH ×3 (08:34→20:24)
[2021-10-24] MEDS: CYANOCOBALAMIN 500 MCG TABLET (VITAMIN B-12) PO SCH (08:35)
[2021-10-24] MEDS: PANTOprazole 40 MG TAB PO SCH (08:35)
[2021-10-24] MEDS: FAMOTIDINE 20 MG TAB PO SCH (08:35)
[2021-10-24] MEDS: VENLAFAXINE HCL XR 75 MG CAPXR PO SCH (08:35)
[2021-10-24] MEDS: POTASSIUM CHLORIDE 10 MEQ TABCR PO SCH (08:35)
[2021-10-24] MEDS: FEXOFENADINE HCL 180 MG TAB PO SCH (08:35)
[2021-10-24] MEDS: EZETIMIBE 10 MG TABLET PO SCH (08:35)
[2021-10-24] MEDS: BUTALBITAL/ACETAMIN/CAFFEINE TAB PO PRN (10:28)
--- NOTE | 2021-10-24 11:11 | Hospitalist Progress Note ---
Date of Service October 24, 2021 Assessment & Plan (1) Complicated migraine with status migrainosus: Plan: refractory migraine despite prn fioricet and usual chronic migraine meds CTA head with multiple areas of narrowing c/w spasm will avoid triptans start solumedrol 40mg TID if no response consider IV depakote consider neurology consult if migraine persists NO MRI evidence of acute stroke (2) Hypothyroidism: Plan: TSH in 03/2021 wnl cont synthroid (3) Hyperlipidemia: Plan: long h/o severely elevated LDL but statin-intolerant previous MD ordered zetia cont such (4) Stroke-like symptoms: Plan: MRI brain neg for acute CVA neuro symptoms largely improved/resolved symptoms most c/w complicated migraine see #1 above (5) Acute metabolic encephalopathy: Plan: likely 2nd to #1 for severe delirium - haldol 0.5mg HS prn no evidence of any infectious process at this time (6) GERD (gastroesophageal reflux disease): Plan: PPI (7) Hx of venous thrombosis and embolism: Plan: should be on chemical DVT proph while here Plan: left message for family on voicemail this evening Admission and Anticipated Discharge Date Admission Date: October 22, 2021 Subjective patient still having bifrontal throbbing headache with photophobia and phonophobia not as severe as at admission but still present fiorcet prn does help b/l arm numbness resolved except for right hand numbness no weakness of any limb still with occasional thought blocking/word finding difficulty and feeling a bit off eating ok tele overnight wnl Review of Systems Review of Systems: gen - no fever cv - no cp pulm - no cough or dyspnea GI - no nausea or emesis Physical Exam Physical Exam: gen - NAD, awake, alert, occasional word finding difficulty face - no droop mouth - MM dry heart - RRR, s1 s2, no murmur lungs - mild dry rales bases abd - soft NT ND BS+ ext - no edema neuro - strength 5/5 x 4 exts sensation intact to light touch x 4 exts Results & Data Results & Data ([facility]) Vital Signs (Past 12 Hours) Vital Signs Temp Pulse Resp BP Pulse Ox 10/24/21 06:56 37.2 C 55 L 14 109/65 92 10/24/21 03:17 37 C 60 16 108/55 L 96 Laboratory Results Laboratory Results - last 24 hr 10/24/21 10/24/21 05:59 05:59 WBC 4.93 RBC 4.03 L Hgb 12.5 Hct 37.8 MCV 93.8 MCH 31.0 MCHC 33.1 RDW Std Deviation 45.1 RDW Coeff of Ana 13.0 Plt Count 267 MPV 9.1 Immature Gran % (Auto) 0.2 Neut % (Auto) 47.0 Lymph % (Auto) 39.6 Beckham % (Auto) 10.8 Eos % (Auto) 1.8 Baso % (Auto) 0.6 Neut # (Auto) 2.32 Lymph # (Auto) 1.95 Beckham # (Auto) 0.53 Eos # (Auto) 0.09 Baso # (Auto) 0.03 Immature Gran # (Auto) 0.01 Sodium 137 Potassium 3.9 Chloride 105 Carbon Dioxide 24 Anion Gap 7.0 BUN 15 Creatinine 0.97 Est Cr Clr Drug Dosing 61.6 Est GFR ( Amer) 71.5 Est GFR (Non-Af Amer) 61.7 BUN/Creatinine Ratio 15.8 Glucose 94 Calcium 8.8 PG Care Time/CCT Total # of Minutes Spent Total Time Spent with Patient: Total time spent is greater than 50% in coordination of care (as documented) at patient's floor/unit and/or counseling patient: Coding Level of Care Code 94721 Subseq Hosp Care Lvl 2 Diagnoses Complicated migraine with status migrainosus G43.101 Hypothyroidism E03.9 Hyperlipidemia E78.5 Stroke-like symptoms R29.90 Acute metabolic encephalopathy G93.41 GERD (gastroesophageal reflux disease) K21.9 Hx of venous thrombosis and embolism Z86.718
[2021-10-24] MEDS: SODIUM CHLORIDE 0.9% 1000ML 1,000 ML IV SCH (11:37)
--- NOTE | 2021-10-24 11:48 | XRay Report ---
XR chest 2V PA/lateral CLINICAL HISTORY: bibasilar rales. COMPARISON STUDY: 10/22/2021 TECHNIQUE: 2 views of the chest FINDINGS: Frontal and lateral radiographs of the chest demonstrate the cardiomediastinal silhouette to be withi n normal limits. The lungs are clear of alveolar opacities. There is no evidence for effusion bilater ally. There is no evidence for vascular congestion. There is no acute osseous pathology. IMPRESSION: No acute cardiopulmonary disease. ACT 112: Negative or not required by law. Electronically signed by: Rakesh Hernandez M.D. 10/24/2021 11:46 AM
[2021-10-24] MEDS: methylPREDNISolone 40 MG in SYRINGE 0 ML IV SCH ×2 (11:59→19:18)
[2021-10-24] MEDS ORDERED: haloperidoL 0.5 MG TAB PO PRN (19:30)
[2021-10-24] MEDS: valACYclovir HCL 500 MG TABLET PO SCH (20:23)
[2021-10-24] MEDS: VERAPAMIL HCL 240 MG TABCR PO SCH (20:23)
[2021-10-24] MEDS: ASPIRIN 81 MG ECTAB PO SCH (20:24)
[2021-10-24] MEDS: AMITRIPTYLINE HCL 50 MG TAB PO SCH (20:25)
[2021-10-24] MEDS: TAMSULOSIN HCL 0.4 MG CAP PO SCH (20:27)
[2021-10-25] MEDS: SODIUM CHLORIDE 0.9% 1000ML 1,000 ML IV SCH (01:25)
[2021-10-25] MEDS: methylPREDNISolone 40 MG in SYRINGE 0 ML IV SCH ×2 (04:34→13:08)
[2021-10-25] MEDS: LEVOTHYROXINE SODIUM 50 MCG TABLET PO SCH (05:47)
[2021-10-25 06:37] LABS: BUN Creatinine Ratio 16.9 (10-20); Calcium 9.2 mg/dl (8.5-10.1); Creatinine Clr Calc Pharmacy 71.8 ml/min; Est GFR (African American) 85.1 ml/min; Est GFR (Non-African American) 73.4 ml/min; Potassium 4.2 mmol/L (3.5-5.1)
[2021-10-25] MEDS: PANTOprazole 40 MG TAB PO SCH (08:12)
[2021-10-25] MEDS: VENLAFAXINE HCL XR 75 MG CAPXR PO SCH (08:12)
[2021-10-25] MEDS: CYANOCOBALAMIN 500 MCG TABLET (VITAMIN B-12) PO SCH (08:12)
[2021-10-25] MEDS: EZETIMIBE 10 MG TABLET PO SCH (08:12)
[2021-10-25] MEDS: FEXOFENADINE HCL 180 MG TAB PO SCH (08:13)
[2021-10-25] MEDS: FAMOTIDINE 20 MG TAB PO SCH (08:13)
[2021-10-25] MEDS: busPIRone 15 MG TAB PO SCH ×3 (08:13→20:51)
[2021-10-25] MEDS: POTASSIUM CHLORIDE 10 MEQ TABCR PO SCH (08:14)
[2021-10-25] MEDS ORDERED: HALOPERIDOL LACTATE 5 MG/ML 1 ML VIAL ONE ×2 (12:48→13:01)
[2021-10-25] MEDS ORDERED: HALOPERIDOL LACTATE 5 MG/ML 1 ML VIAL IM STA (13:07)
[2021-10-25] MEDS ORDERED: HALOPERIDOL LACTATE 5 MG/ML 1 ML VIAL IM PRN (13:08)
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
--- NOTE | 2021-10-25 13:19 | Communication Note ---
Date of Service: October 25, 2021 Patient seen after slick presley called when she attempted to elope. She was noted to be significantly confused and making illogical statements with significant psychomotor agitation, posturing, pacing around her room, forgetting recent events. Per discussion with Dr. Merlos she was admitted for complicated migraine and has been receiving treatment including with steroids.Abrupt change in behavior with mood lability starting this morning. A/P: Most likely psychoactive delirium in context of recent steroid use for complicated migraine. At this point she does not have decision making capacity to leave AMA due to acute delirium and cannot leave AMA. -Given behavioral emergency she was given haldol 2.5 mg x1. Can have up 10mg haldol in 24 hour period. Avoid ativan as this can worsen delirium. -Will assess further later today when she is better able to tolerate interview
[2021-10-25] MEDS: BUTALBITAL/ACETAMIN/CAFFEINE TAB PO PRN (14:41)
[2021-10-25] MEDS: AMITRIPTYLINE HCL 50 MG TAB PO SCH (20:50)
[2021-10-25] MEDS: VERAPAMIL HCL 240 MG TABCR PO SCH (20:51)
[2021-10-25] MEDS: LATANOPROST 0.005% OP SOLN 2.5 ML BTL OP SCH (20:51)
[2021-10-25] MEDS: ASPIRIN 81 MG ECTAB PO SCH (20:52)
[2021-10-25] MEDS: TAMSULOSIN HCL 0.4 MG CAP PO SCH (20:56)
[2021-10-25] MEDS: valACYclovir HCL 500 MG TABLET PO SCH (20:56)
[2021-10-26] MEDS: LEVOTHYROXINE SODIUM 50 MCG TABLET PO SCH (06:03)
[2021-10-26] MEDS: CYANOCOBALAMIN 500 MCG TABLET (VITAMIN B-12) PO SCH (08:01)
[2021-10-26] MEDS: FEXOFENADINE HCL 180 MG TAB PO SCH (08:02)
[2021-10-26] MEDS: FAMOTIDINE 20 MG TAB PO SCH (08:02)
[2021-10-26] MEDS: busPIRone 15 MG TAB PO SCH ×3 (08:02→21:44)
[2021-10-26] MEDS: EZETIMIBE 10 MG TABLET PO SCH (08:02)
[2021-10-26] MEDS: VENLAFAXINE HCL XR 75 MG CAPXR PO SCH (08:02)
[2021-10-26] MEDS: PANTOprazole 40 MG TAB PO SCH (08:02)
[2021-10-26] MEDS: BUTALBITAL/ACETAMIN/CAFFEINE TAB PO PRN ×3 (08:15→21:43)
[2021-10-26] MEDS: POTASSIUM CHLORIDE 10 MEQ TABCR PO SCH (09:47)
--- NOTE | 2021-10-26 10:52 | XRay Report ---
LEFT FOOT 3 VIEWS HISTORY: foot trauma,swelling COMPARISON: Left foot 05/15/2018. FINDINGS: The bones are osteopenic. The Lisfranc joint is intact. Mild soft tissue swelling at the fi fth MTP joint. There is nondisplaced fracture at the fifth metatarsal head/neck. No radiopaque foreig n bodies. Small plantar heel spur, unchanged. IMPRESSION: Nondisplaced fracture at the fifth metatarsal head/neck. No dislocation. ACT 112: Negative or not required by law. Electronically signed by: Jose Caban M.D. 10/26/2021 10:50 AM
--- NOTE | 2021-10-26 12:37 | Psychiatric Consultation ---
Date of Consultation October 26, 2021 Impression / Recommendations Impression Charley Correa is a 65 yo woman with history of anxiety, depression, CVAs, TIAs, complex migraines and mitral valve disease admitted medically for complex migraines. Diagnostically consistent with hyperactive delirium-likely steroid induced. Differential includes other medical causes leading to delirium versus acute monserrat though highly unlikely given no psychiatric history of monserrat and collateral information from hospitalist's discussion with family which supports that this is a dramatic change from her baseline. Given ongoing fluctuations in attention/confusion today consistent with persisting delirium it seems appropriate at this time to begin scheduled haldol. QTc from EKG on 10/22 was 478 ms and usually desire less than or equal to 480 ms so recommend repeat EKG and daily EKG while on haldol. Ok to continue her other psychiatric medications but hold ativan and other delirium-provoking medications. She is deemed to be at low acute and chronic risk of self-harm due to denial of SI and most significant modifiable risk factor is treatment of acute delirium which is leading to mood lability. She continues to have lack of decision making capacity regarding leaving AMA due to acute delirium/altered mental status. (1) Acute encephalopathy: -She may not leave AMA due to lack of decision making capacity in setting of acute delirium -Daily EKGs to monitor QTc interval (goal <480 ms/day) -Begin scheduled haldol 2.5 mg BID for delirium (Not to exceed maximum of 10 mg via all sources-po and IM in 24 hours) -For behavioral emergency haldol 2.5 mg IM x1 (Not to exceed maximum of 5 mg via IM in 24 hours) -Continue 1-on-1 for agitation -Continue delirium prevention/management strategies-frequent re-orientation, raising blinds during day/lowering at night, etc -Psych liason will attempt to contact patient's sister Annmarie for further collateral Risk Factors Assessment Do You Have Access To A Gun?: No Psych History Identifying Data 65 yo woman with history of anxiety, depression, CVAs, TIAs, complex migraines and mitral valve disease admitted medically for complex migraines. Psychiatry was consulted after code presley for behavioral agitation. Chief Complaint "We need to be quiet so they don't hear". History of Present Illness Charley Correa is a 65 yo woman with history of anxiety, depression, CVAs, TIAs, complex migraines and mitral valve disease admitted medically for complex migraines. She responded well to treatment, including use of steroids, but then suddenly had an abrupt change in mood and behavior yesterday morning with tearfulness then panic then agitation and attempted to leave believing that someone was waiting for her downstairs. This resulted in a code presley and on my assessment she was deemed to not have DMC to leave AMA due to acute hyperactive delirium. She received haldol 2.5 mg IM yesterday afternoon and then one additional haldol 0.5 mg po dose. Today she remains labile, going from tearfulness to paranoid to smiling and laughing and wanting to give me a hug. She remains confused, forgetting names and asking about people's phone numbers and is quite perseverative about calling a doctor that she believes saw her during her inpatient stay (name is unfamiliar to me and nursing staff). She makes statements about "I need to text my other grandma's grandma's grandma" and then becomes tearful. She is fully oriented. Significant psychomotor activation. Asks me to whisper at one point and only responds to me in whispers after she points to hallway and states "I don't want them to hear us". 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 Reviewed psychiatric history and she notes mood stability for the last 2-3 years, since her , on buspar and Effexor. She denies depressed mood today and adamantly denies SI stating "I would never do that" and "I could never do that to my grandbabies". Past Psychiatric History Outpatient Services: none currently, PCP manages her medications Previous Psych Admissions: none Do You Have Access To A Gun?: No History of Previous Suicide Attempt: No Allergies Allergy/AdvReac Type Severity Reaction Status Date / Time erythromycin base Allergy Unknown VOMITTING Verified 10/22/21 15:37 ciprofloxacin [From Cipro] AdvReac Severe nausea Verified 10/22/21 15:37 Macrolide Antibiotics AdvReac Unknown STOMACH Verified 10/22/21 15:37 UPSET Home Medications Medication Instructions Recorded Confirmed Type aspirin 81 mg tablet,delayed 81 mg PO HS 06/12/19 10/22/21 History release cyanocobalamin (vitamin B-12) 1,000 mcg SUBLINGUAL QAM 05/03/20 10/22/21 History 1,000 mcg sublingual lozenge famotidine 20 mg tablet 20 mg PO DAILY #30 tab 12/11/20 10/22/21 Rx levothyroxine 50 mcg tablet 50 mcg PO QAM #30 tab 12/11/20 10/22/21 Rx meclizine 25 mg tablet 25 mg PO TID PRN #30 tab 12/30/20 10/22/21 Rx tamsulosin 0.4 mg capsule 0.4 mg PO HS #30 cap 01/13/21 10/22/21 Rx venlafaxine 225 mg tablet,extended 225 mg PO DAILY #30 tab 01/13/21 10/22/21 Rx release 24 hr ondansetron 4 mg disintegrating 4 mg PO Q8H PRN #30 tab 02/05/21 10/22/21 Rx tablet pantoprazole 40 mg tablet,delayed 40 mg PO QAM #30 tab 03/12/21 10/22/21 Rx release valacyclovir 500 mg tablet 500 mg PO HS #30 tab 03/12/21 10/22/21 Rx furosemide 20 mg tablet 10 mg PO DAILY #30 tab 04/10/21 10/22/21 Rx estradiol (Estrace) 1 g VAGINAL .COMPLEX #42.5 g 05/19/21 10/22/21 Rx fexofenadine 180 mg tablet 180 mg PO QAM #30 tab 05/25/21 10/22/21 Rx (Gaviota Allergy) verapamil 240 mg 24 hr 240 mg PO HS 30 Days #30 cap 06/17/21 10/22/21 Rx capsule,extended release fremanezumab-vfrm 225 mg/1.5 mL 675 mg SQ .COMPLEX #4.5 ml 07/01/21 10/22/21 Rx subcutaneous auto-injector (Ajovy) amitriptyline 50 mg tablet 50 mg PO HS #30 tab 09/09/21 10/22/21 Rx potassium chloride 10 mEq 10 meq PO DAILY #30 tab 10/12/21 10/22/21 Rx tablet,extended release (Klor-Con) lorazepam 0.5 mg tablet 0.5 mg PO QID PRN #120 tab 10/13/21 10/22/21 Rx fluticasone propionate 50 1 spray INTRANASAL QAM PRN #16 g 10/15/21 10/22/21 Rx mcg/actuation nasal spray,suspension [id number]-xjhnzmezcvzzc-lbhfnqei 1 - 2 cap PO UD PRN #20 cap 10/16/21 10/22/21 Rx 50 mg-325 mg-40 mg capsule buspirone 15 mg tablet 15 mg PO TID #90 tab 10/19/21 10/22/21 Rx latanoprost 0.005 % eye drops 1 drp OPHTHALMIC (EYE) UD 10/22/21 10/22/21 History Family History Father with alzhemier's disease Substance Abuse History denies Personal History Living Arrangements: Home Highest Grade Completed: High School Graduate Beliefs That Will Affect Care: Orthodoxy Patient History Medical History Abnormal brain MRI Achalasia, esophageal Acid reflux Arthralgia of multiple sites Bladder retention of urine Cervical radiculopathy Esophageal dysmotility Headache, hemiplegic migraine Hx of venous thrombosis and embolism (09/20/11) Incomplete bladder emptying Old myocardial infarct (09/20/11) Osteoarthritis of hands, bilateral Peripheral edema Plantar fasciitis Slow transit constipation Vaginal prolapse Surgical History H/O hysterectomy for benign disease (09/20/11) H/O ovarian cystectomy H/O rectocele repair H/O varicose vein ligation and stripping History of appendectomy (09/20/11) History of appendectomy History of bladder surgery History of removal of ovarian cyst (09/20/11) S/P total abdominal hysterectomy Family History Mother Myocardial infarction Denies family history of Ovarian cancer Prostate cancer Breast cancer Colorectal cancer Social History Smoking Status: Never smoker Second Hand Exposure: No; Hx Alcohol Use: No Hx Substance Use: No Preferred Language: Romanian Communication Ability: Effective Transport Driver Required: No Beliefs That Will Affect Care: Orthodoxy Orthodoxy Beliefs: "God's missionary" marital status: / Current Living Situation: Alone current occupational status: employed 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 How many Children do You have: 2 Feels Safe at Home: Yes and No Is there a partner from a previous relationship who is making you feel unsafe now?: No Childhood Exposure to Second-Hand Smoke: No caffeine: Yes Dental Care, Regularly: No Physical Activity Frequency: Daily Seatbelt Use: always Sunscreen Use: Yes (sometimes) Assistive Devices: Glasses Physical Exam Psychiatric: Orientation: alert and oriented x 3 Apperance: + disheveled Eye Contact: good eye contact Motor Behavior: + psychomotor agitation Speech: normal rate/rhythm/volume of speech (whispering at times, talkative ) Affect: + labile affect Mood: + anxious mood; no depressed mood Thought Process: + tangential thought process and + looseness of associations Thought Content: + preoccupation and + paranoid Suicidal Thoughts: denies suicidal thoughts Homicidal Thoughts: denies homicidal thoughts Hallucinations: no auditory hallucinations and no visual hallucinations Cognition: recent memory grossly intact and language grossly intact; + attention not intact Insight: + impaired insight Judgement: + impaired judgement Vital Signs (Past 24 Hours): Last Vital Signs Temp 36.6 C 10/26/21 07:51 Pulse 70 10/26/21 07:51 Resp 20 10/26/21 07:51 BP 161/76 H 10/26/21 07:51 Pulse Ox 97 10/26/21 07:51 Review of Systems All systems reviewed & are unremarkable except as noted in HPI & below (she endorses left foot pain which she attributes to injury on door when she attempte d to elope yesterday) Results & Data (PSY) Medications Administered Acetaminophen/Butalbital/Caffeine (Butalbital/Acetamin/Caffeine Tab) 2 tab PO Q4H PRN PRN Reason: Headache Stop: 11/21/21 22:08 Last Admin: 10/26/21 08:15 Dose: 2 tab Documented by: [id number] Admin: 10/25/21 14:41 Dose: 2 tab Documented by: [id number] Admin: 10/24/21 10:28 Dose: 2 tab Documented by: [id number] Admin: 10/23/21 18:18 Dose: 2 tab Documented by: [id number] Admin: 10/23/21 13:45 Dose: 2 tab Documented by: [id number] Admin: 10/23/21 09:37 Dose: 2 tab Documented by: [id number] Amitriptyline HCl (Amitriptyline Hcl 50 Mg Tab) 50 mg PO [facility] Stop: 11/21/21 22:29 Last Admin: 10/25/21 20:50 Dose: 50 mg Documented by: [id number] Admin: 10/24/21 20:25 Dose: 50 mg Documented by: [id number] Admin: 10/23/21 20:29 Dose: 50 mg Documented by: [id number] Admin: 10/22/21 23:35 Dose: 50 mg Documented by: [id number] Aspirin (Aspirin 81 Mg Ectab) 81 mg PO [facility] Stop: 11/21/21 22:29 Last Admin: 10/25/21 20:52 Dose: 81 mg Documented by: [id number] Admin: 10/24/21 20:24 Dose: 81 mg Documented by: [id number] Admin: 10/23/21 20:28 Dose: 81 mg Documented by: [id number] Admin: 10/22/21 23:35 Dose: 81 mg Documented by: [id number] Buspirone HCl (Buspirone 15 Mg Tab) 15 mg PO TID [facility] Stop: 11/21/21 22:29 Last Admin: 10/26/21 08:02 Dose: 15 mg Documented by: [id number] Admin: 10/25/21 20:51 Dose: 15 mg Documented by: [id number] Admin: 10/25/21 14:41 Dose: 15 mg Documented by: [id number] Admin: 10/25/21 08:13 Dose: 15 mg Documented by: [id number] Admin: 10/24/21 20:24 Dose: 15 mg Documented by: [id number] Admin: 10/24/21 13:03 Dose: 15 mg Documented by: [id number] Admin: 10/24/21 08:34 Dose: 15 mg Documented by: [id number] Admin: 10/23/21 20:29 Dose: 15 mg Documented by: [id number] Admin: 10/23/21 13:45 Dose: 15 mg Documented by: [id number] Admin: 10/23/21 09:34 Dose: 15 mg Documented by: [id number] Admin: 10/22/21 23:35 Dose: 15 mg Documented by: [id number] Cyanocobalamin (Cyanocobalamin 500 Mcg Tablet (Vitamin B-12)) 1,000 mcg PO [facility] Stop: 11/22/21 08:59 Last Admin: 10/26/21 08:01 Dose: 1,000 mcg Documented by: [id number] Admin: 10/25/21 08:12 Dose: 1,000 mcg Documented by: [id number] Admin: 10/24/21 08:35 Dose: 1,000 mcg Documented by: [id number] Admin: 10/23/21 09:34 Dose: 1,000 mcg Documented by: [id number] Ezetimibe (Ezetimibe 10 Mg Tablet) 10 mg PO [facility] Stop: 11/23/21 08:59 Last Admin: 10/26/21 08:02 Dose: 10 mg Documented by: [id number] Admin: 10/25/21 08:12 Dose: 10 mg Documented by: [id number] Admin: 10/24/21 08:35 Dose: 10 mg Documented by: [id number] Famotidine (Famotidine 20 Mg Tab) 20 mg PO DAILY [facility] Stop: 11/22/21 08:59 Last Admin: 10/26/21 08:02 Dose: 20 mg Documented by: [id number] Admin: 10/25/21 08:13 Dose: 20 mg Documented by: [id number] Admin: 10/24/21 08:35 Dose: 20 mg Documented by: [id number] Admin: 10/23/21 09:34 Dose: 20 mg Documented by: [id number] Fexofenadine HCl (Fexofenadine Hcl 180 Mg Tab) 180 mg PO [facility] Stop: 11/22/21 08:59 Last Admin: 10/26/21 08:02 Dose: 180 mg Documented by: [id number] Admin: 10/25/21 08:13 Dose: 180 mg Documented by: [id number] Admin: 10/24/21 08:35 Dose: 180 mg Documented by: [id number] Admin: 10/23/21 09:34 Dose: 180 mg Documented by: [id number] Haloperidol (Haloperidol 0.5 Mg Tab) 0.5 mg PO HS PRN PRN Reason: confusion/delirium Stop: 11/23/21 19:29 Last Admin: 10/25/21 08:12 Dose: 0.5 mg Documented by: [id number] Latanoprost (Latanoprost 0.005% Op Soln 2.5 Ml Btl) 1 drops OP HS [facility] Stop: 11/24/21 20:59 Last Admin: 10/25/21 20:51 Dose: 1 drops Documented by: [id number] Levothyroxine Sodium ([facility]othyroxine Sodium 50 Mcg Tablet) [facility]: 11/22/21 06:29 Last Admin: 10/26/21 06:03 Dose: 50 mcg Documented by: [id number] Admin: 10/25/21 05:47 Dose: 50 mcg Documented by: [id number] Admin: 10/24/21 05:59 Dose: 50 mcg Documented by: [id number] Admin: 10/23/21 06:29 Dose: 50 mcg Documented by: [id number] Lorazepam (Lorazepam 0.5 Mg Tab) 0.5 mg PO QID PRN PRN Reason: Anxiety Stop: 11/21/21 22:29 Last Admin: 10/23/21 15:17 Dose: 0.5 mg Documented by: [id number] Admin: 10/23/21 01:41 Dose: 0.5 mg Documented by: [id number] Ondansetron HCl (Ondansetron 4 Mg Od Tab) 4 mg PO Q8H PRN PRN Reason: Nausea And Vomiting Stop: 11/21/21 23:09 Last Admin: 10/23/21 01:41 Dose: 4 mg Documented by: [id number] Pantoprazole Sodium (Pantoprazole 40 Mg Tab) [facility] Stop: 11/22/21 08:59 Last Admin: 10/26/21 08:02 Dose: 40 mg Documented by: [id number] Admin: 10/25/21 08:12 Dose: 40 mg Documented by: [id number] Admin: 10/24/21 08:35 Dose: 40 mg Documented by: [id number] Admin: 10/23/21 09:33 Dose: 40 mg Documented by: [id number] Potassium Chloride (Potassium Chloride 10 Meq Tabcr) 10 meq PO DAILY [facility] Stop: 11/22/21 08:59 Last Admin: 10/26/21 09:47 Dose: 10 meq Documented by: [id number] Admin: 10/25/21 08:14 Dose: 10 meq Documented by: [id number] Admin: 10/24/21 08:35 Dose: 10 meq Documented by: [id number] Admin: 10/23/21 09:34 Dose: 10 meq Documented by: [id number] Tamsulosin HCl (Tamsulosin Hcl 0.4 Mg Cap) 0.4 mg PO [facility] Stop: 11/21/21 22:29 Last Admin: 10/25/21 20:56 Dose: 0.4 mg Documented by: [id number] Admin: 10/24/21 20:27 Dose: 0.4 mg Documented by: [id number] Admin: 10/23/21 20:29 Dose: 0.4 mg Documented by: [id number] Admin: 10/22/21 23:36 Dose: 0.4 mg Documented by: [id number] Valacyclovir HCl (Valacyclovir Hcl 500 Mg Tablet) 500 mg PO [facility] Stop: 11/21/21 22:29 Last Admin: 10/25/21 20:56 Dose: 500 mg Documented by: [id number] Admin: 10/24/21 20:23 Dose: 500 mg Documented by: [id number] Admin: 10/23/21 20:28 Dose: 500 mg Documented by: [id number] Admin: 10/22/21 23:36 Dose: 500 mg Documented by: [id number] Venlafaxine HCl (Venlafaxine Hcl Xr 75 Mg Capxr) 225 mg PO DAILY [facility] Stop: 11/22/21 08:59 Last Admin: 10/26/21 08:02 Dose: 225 mg Documented by: [id number] Admin: 10/25/21 08:12 Dose: 225 mg Documented by: [id number] Admin: 10/24/21 08:35 Dose: 225 mg Documented by: [id number] Admin: 10/23/21 09:33 Dose: 225 mg Documented by: [id number] Verapamil HCl (Verapamil Hcl 240 Mg Tabcr) 240 mg PO [facility] Stop: 11/21/21 22:29 Last Admin: 10/25/21 20:51 Dose: 240 mg Documented by: [id number] Admin: 10/24/21 20:23 Dose: 240 mg Documented by: [id number] Admin: 10/23/21 19:46 Dose: 240 mg Documented by: [id number] Admin: 10/22/21 23:37 Dose: 240 mg Documented by: [id number] Coding Level of Care Code 68399 Inpt Consult Level 3 Diagnoses Acute encephalopathy G93.40
[2021-10-26] MEDS ORDERED: HALOPERIDOL LACTATE 5 MG/ML 1 ML VIAL IM PRN (13:31)
[2021-10-26] MEDS ORDERED: DOCUSATE SODIUM 100 MG CAP PO ONE (14:09)
[2021-10-26] MEDS ORDERED: bisacodyL 5 MG TABEC PO ONE (14:09)
--- NOTE | 2021-10-26 14:11 | Orthopedic Consultation ---
Date of Consultation October 26, 2021 Assessment & Plan (1) Nondisplaced fracture of fifth left metatarsal bone: X-rays reviewed. Nondisplaced fracture of the left fifth metatarsal head/neck. Ice to the left foot off and on. Elevation of the left foot when in bed. We will order her a cast shoe for ambulation. She can be weightbearing as tolerated on the left foot. If this is too uncomfortable, she can be heel weightbearing. He can follow-up with Dr. Osorio in 2 weeks for further x-rays and a checkup. History of Present Illness Reason for Consultation: Left fifth metacarpal head/neck nondisplaced fracture Attending Physician: Nan Barragan MD History of Present Illness Patient is a 65-year-old white female who was admitted for ruling out CVA. Stroke was ruled out with MRI and symptoms that she was having felt to be secondary to complicated migraine headache. She was being treated for this wh ich included IV steroids 3 times daily. Last night the patient became somewhat aggravated and combative. She apparently tried to leave and was very confused. She had developed acute encephalopathy which was felt to be possibly secondary to steroid psychosis. Her steroids were later discontinued. During the time that she was trying to leave her room, a code presley was called and several of the staff are keeping her from leaving. Psychiatry had come over to see her as well and felt that she was unable to leave AMA secondary to her mentation. At some point in time, either bumped her foot or her foot was stepped on however the patient developed bruising over the left foot at the fifth metatarsal and was complaining of discomfort. An x-ray was taken and it was found that she had a nondisplaced fracture of the fifth metatarsal head and neck. Currently, Dr. Barragan and a one-on-one nursing staff is present in the room. The patient is very pleasant and not combative. We discussed her foot and she also talks about previous surgery that she has had with our group. We have been asked to see her for her fracture. Allergies Allergy/AdvReac Type Severity Reaction Status Date / Time erythromycin base Allergy Unknown VOMITTING Verified 10/22/21 15:37 ciprofloxacin [From Cipro] AdvReac Severe nausea Verified 10/22/21 15:37 Macrolide Antibiotics AdvReac Unknown STOMACH Verified 10/22/21 15:37 UPSET Home Medications Medication Instructions Recorded Confirmed Type aspirin 81 mg tablet,delayed 81 mg PO HS 06/12/19 10/22/21 History release cyanocobalamin (vitamin B-12) 1,000 mcg SUBLINGUAL QAM 05/03/20 10/22/21 History 1,000 mcg sublingual lozenge famotidine 20 mg tablet 20 mg PO DAILY #30 tab 12/11/20 10/22/21 Rx levothyroxine 50 mcg tablet 50 mcg PO QAM #30 tab 12/11/20 10/22/21 Rx meclizine 25 mg tablet 25 mg PO TID PRN #30 tab 12/30/20 10/22/21 Rx tamsulosin 0.4 mg capsule 0.4 mg PO HS #30 cap 01/13/21 10/22/21 Rx venlafaxine 225 mg tablet,extended 225 mg PO DAILY #30 tab 01/13/21 10/22/21 Rx release 24 hr ondansetron 4 mg disintegrating 4 mg PO Q8H PRN #30 tab 02/05/21 10/22/21 Rx tablet pantoprazole 40 mg tablet,delayed 40 mg PO QAM #30 tab 03/12/21 10/22/21 Rx release valacyclovir 500 mg tablet 500 mg PO HS #30 tab 03/12/21 10/22/21 Rx furosemide 20 mg tablet 10 mg PO DAILY #30 tab 04/10/21 10/22/21 Rx estradiol (Estrace) 1 g VAGINAL .COMPLEX #42.5 g 05/19/21 10/22/21 Rx fexofenadine 180 mg tablet 180 mg PO QAM #30 tab 05/25/21 10/22/21 Rx (Gaviota Allergy) verapamil 240 mg 24 hr 240 mg PO HS 30 Days #30 cap 06/17/21 10/22/21 Rx capsule,extended release fremanezumab-vfrm 225 mg/1.5 mL 675 mg SQ .COMPLEX #4.5 ml 07/01/21 10/22/21 Rx subcutaneous auto-injector (Ajovy) amitriptyline 50 mg tablet 50 mg PO HS #30 tab 09/09/21 10/22/21 Rx potassium chloride 10 mEq 10 meq PO DAILY #30 tab 10/12/21 10/22/21 Rx tablet,extended release (Klor-Con) lorazepam 0.5 mg tablet 0.5 mg PO QID PRN #120 tab 10/13/21 10/22/21 Rx fluticasone propionate 50 1 spray INTRANASAL QAM PRN #16 g 10/15/21 10/22/21 Rx mcg/actuation nasal spray,suspension [id number]-myjznxqvjmtad-gwhwdpoj 1 - 2 cap PO UD PRN #20 cap 10/16/21 10/22/21 Rx 50 mg-325 mg-40 mg capsule buspirone 15 mg tablet 15 mg PO TID #90 tab 10/19/21 10/22/21 Rx latanoprost 0.005 % eye drops 1 drp OPHTHALMIC (EYE) UD 10/22/21 10/22/21 History Patient History Medical History Abnormal brain MRI Achalasia, esophageal Acid reflux Arthralgia of multiple sites Bladder retention of urine Cervical radiculopathy Esophageal dysmotility Headache, hemiplegic migraine Hx of venous thrombosis and embolism (09/20/11) Incomplete bladder emptying Old myocardial infarct (09/20/11) Osteoarthritis of hands, bilateral Peripheral edema Plantar fasciitis Slow transit constipation Vaginal prolapse Surgical History H/O hysterectomy for benign disease (09/20/11) H/O ovarian cystectomy H/O rectocele repair H/O varicose vein ligation and stripping History of appendectomy (09/20/11) History of appendectomy History of bladder surgery History of removal of ovarian cyst (09/20/11) S/P total abdominal hysterectomy Family History Mother Myocardial infarction Denies family history of Ovarian cancer Prostate cancer Breast cancer Colorectal cancer Social History Smoking Status: Never smoker Second Hand Exposure: No; Hx Alcohol Use: No Hx Substance Use: No Preferred Language: Portuguese Communication Ability: Effective Car Chaser Required: No Beliefs That Will Affect Care: Adventist Adventist Beliefs: "God's missionary" marital status: / Current Living Situation: Alone current occupational status: employed 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 She is pleasant and cooperative. She answers most questions appropriately but seems slightly confused at this point in time yet. She states that the top of her left foot is very painful. No other complaints. On examination of her left foot, she does have an ecchymotic area over the left fifth metatarsal. This area is quite tender on palpation. There is no er ythema. She has much less pain on palpation on the plantar aspect. Deeper palpation does cause her some discomfort near the fifth metatarsal head. Her fifth toe is pink and warm and cap refill is less than 2 seconds. She states she does have some slight decrease sensation of the left fifth toe compared to the right. He has no pain on palpation over the dorsum of the foot incorporating the fourth third second and first toes. No obvious pain on palpation going proximally to the ankle. Results & Data ([facility]) Vital Signs (Past 12 Hours) Vital Signs Temp Pulse Resp BP Pulse Ox 10/26/21 07:51 36.6 C 70 20 161/76 H 97 Diagnostic Findings Patient:JUAN LUIS VELASQUEZ Admit Date:10/24/21 MR#:[id number] Address1:[address] [place] [address] Acct ID:[id number] Address2:[facility] [address] Date:1955 [facility] Zip:[place] [address] Age:65 Location:3E Sex:F Room/Bed:[facility] Att Phy:Nan Barragan MD Diagnosis:STROKE-LIKE SYMPTOMS Breanne Phy:Stacey Aguero MD Service Date:10/26/21 Fam Phy: Interpreting Phy:Jose Caban [facility] Phy:Rafael Suero MD Ordering Phy:Nan Barragan MD cc: ~ LEFT FOOT 3 VIEWS HISTORY: foot trauma,swelling COMPARISON: Left foot 05/15/2018. FINDINGS: The bones are osteopenic. The Lisfranc joint is intact. Mild soft tissue swelling at the fifth MTP joint. There is nondisplaced fracture at the fifth metatarsal head/neck. No radiopaque foreign bodies. Small plantar heel s pur, unchanged. IMPRESSION: Nondisplaced fracture at the fifth metatarsal head/neck. No dislocation.
--- NOTE | 2021-10-26 14:14 | Hospitalist Progress Note ---
Date of Service October 26, 2021 Assessment & Plan (1) Acute encephalopathy: Plan: Toxic and/or metabolic patient was confused on 10/25 with word finding difficulties/thought blocking, etc. she appeared to be in the midst of an ongoing complicated status migraine and was treated with IV steroids which seems to be the likely cause of her encephalopathy Solumedrol has been completely discontinued and she has been treated with haloperidol on 2 occasions-seems certainly improved today but still with psychomotor agitation, flight of ideas, and paranoia -Currently does not have capacity to make informed medical decisions - due to her encephalopathy/delirium - and she is unsafe to leave the hospital. -It is also noted that she typically takes lorazepam 4 times a day scheduled at home long-term and has not received any lorazepam since 10/23-starting to develop some hypertension but no tachycardia-could be having some benzodiazepine withdrawal Could give lorazepam sparingly as needed for anxiety-discussed with psychiatry -Start Haldol 2.5 mg p.o. twice daily scheduled and can give 2.5 mg IM every 12 hours as needed severe agitation -Check daily ECG-QTC today is normal at 439 -Continue to provide supportive care, one-on-one sitter for safety (2) Complicated migraine with status migrainosus: Plan: refractory migraine despite prn fioricet and usual chronic migraine meds CTA head with multiple areas of narrowing c/w spasm avoiding triptans solumedrol 40mg TID given x24 hours with successful resolution of her headache, but because steroid psychosis as above-steroids now discontinued NO MRI evidence of acute stroke neuro exam remains normal/stable today -Continue Fioricet as needed Continue verapamil (3) Hypothyroidism: Plan: TSH in 03/2021 wnl cont synthroid (4) Hyperlipidemia: Plan: long h/o severely elevated LDL but statin-intolerant Total cholesterol 369, LDL 279 Continue zetia Consider adding on gemfibrozil as an outpatient (5) Stroke-like symptoms: Plan: MRI brain neg for acute CVA neuro symptoms resolved symptoms most c/w complicated migraine see above (6) GERD (gastroesophageal reflux disease): Plan: PPI (7) Hx of venous thrombosis and embolism: Plan: Add on once daily Lovenox now that she is less agitated (8) Depression: Plan: appears to have underlying depression and/or anxiety patient alluded to multiple stressors including several people who have in her family in the last few years, difficulties with her 2 sons (poor relationship with both), etc I cannot rule out depression with psychosis but will defer that to psychiatry appreciate psych assistance typically takes ativan qid at home-none given here since 10/23, watch for benzo withdrawal -Continue venlafaxine, amitriptyline, buspirone (9) Nondisplaced fracture of fifth left metatarsal bone: Plan: -Nondisplaced, no surgery needed -Appreciate orthopedics consultation -Continue icing -Tylenol as needed for pain -Postop hard shoe to be ordered to be warm while walking -Weight-bear as tolerated or heel weightbearing (10) Anxiety: Plan: As above Plan: Patient is estranged from her sons and previous hospitalist tried to contact them without success Disposition-continued stay on medical/surgical until delirium resolves, will order PT/OT now that she has a broken foot and ensure that she is safe for discharged home in the next 1 to 2 days The patient's sister Annmarie (Annmarie's number - [phone]) would be her point of contact Admission and Anticipated Discharge Date Admission Date: October 24, 2021 Subjective Patient very pleasant talkative. Reports pain in her left foot with swelling that she thinks started at 3 in the morning. X-ray revealed a fracture of the left fifth metatarsal distally. She reports having a little bit of pain at times from the right side of her jaw to the back of her head but overall improved. Some occasional nausea. No headache. She states "my jaw popped out of joint" but she is able to chew and has no obvious deformity. When I asked her about her lorazepam use at home, she burst into tears and s tarted tell me about how her [id number]-vek then her son's best friend , and then her son was dependent on her financially because he could not work out of depression. She then cut him off financially as she was having trouble keeping up with working 70 hours and reports that her son then cut her out of his life. This is all set for her but she states that she feels she did the right thing but this causes her a lot of anxiety. I discussed her care with psychiatry today. I also discussed her care with the orthopedic surgery PA at the bedside. Review of Systems Review of Systems: All systems reviewed & are unremarkable except as noted in HPI & below Physical Exam Constitutional: WD/WN, vitals as above Eyes: PERRL, conjunctivae normal, anicteric sclerae ENMT: external ear and nose normal, oropharynx normal Neck: trachea midline, no thyromegaly Respiratory: normal respiratory effort, lungs clear to auscultation Cardiovascular: RRR, no murmur, no edema Chest (Breasts): Chest: normal inspection of chest Gastrointestinal (Abdomen): normal bowel sounds, soft, nontender, no hepatosplenomegaly Musculoskeletal: Extremities: + extremities abnormal to inspection (Left dorsal lateral foot with edema and bruising), no cyanosis and no clubbing Positive tenderness to palpation over distal left fifth metatarsal both dorsally and on plantar surface, mild decreased to light touch over the left fifth toe 2+ dorsalis pedis pulses bilaterally Skin: no rashes, warm and dry Neurologic: moves all extremities and awake; no focal motor deficits Psychiatric: Orientation: alert, oriented to person, oriented to place and cooperative Apperance: appropriately dressed Eye Contact: good eye contact Motor Behavior: + psychomotor agitation Speech: + pressured speech Affect: + labile affect Mood: + depressed mood and + anxious mood Thought Process: + flight of ideas Lymphatic: no lymphedema Results & Data Results & Data ([facility]) Vital Signs (Past 12 Hours) Vital Signs Temp Pulse Resp BP Pulse Ox 10/26/21 07:51 36.6 C 70 20 161/76 H 97 PG Care Time/CCT Total # of Minutes Spent Total Time Spent with Patient: Total time spent is greater than 50% in coordination of care (as documented) at patient's floor/unit and/or counseling patient: Coding Level of Care Code 72488 Subseq Hosp Care Lvl 3 Diagnoses Acute encephalopathy G93.40 Complicated migraine with status migrainosus G43.101 Hypothyroidism E03.9 Hyperlipidemia E78.5 Stroke-like symptoms R29.90 GERD (gastroesophageal reflux disease) K21.9 Hx of venous thrombosis and embolism Z86.718 Depression F32.A Nondisplaced fracture of fifth left metatarsal bone S92.355A Anxiety F41.9
[2021-10-26] MEDS: haloperidoL 5 MG TAB PO SCH ×2 (15:45→21:44)
[2021-10-26] MEDS: VERAPAMIL HCL 240 MG TABCR PO SCH (21:43)
[2021-10-26] MEDS: valACYclovir HCL 500 MG TABLET PO SCH (21:43)
[2021-10-26] MEDS: ASPIRIN 81 MG ECTAB PO SCH (21:44)
[2021-10-26] MEDS: TAMSULOSIN HCL 0.4 MG CAP PO SCH (21:44)
[2021-10-26] MEDS: AMITRIPTYLINE HCL 50 MG TAB PO SCH (21:45)
[2021-10-26] MEDS: LATANOPROST 0.005% OP SOLN 2.5 ML BTL OP SCH (21:45)
[2021-10-27] MEDS: LEVOTHYROXINE SODIUM 50 MCG TABLET PO SCH (05:53)
[2021-10-27] MEDS: EZETIMIBE 10 MG TABLET PO SCH (08:08)
[2021-10-27] MEDS: CYANOCOBALAMIN 500 MCG TABLET (VITAMIN B-12) PO SCH (08:08)
[2021-10-27] MEDS: VENLAFAXINE HCL XR 75 MG CAPXR PO SCH (08:08)
[2021-10-27] MEDS: FEXOFENADINE HCL 180 MG TAB PO SCH (08:08)
[2021-10-27] MEDS: haloperidoL 5 MG TAB PO SCH ×2 (08:10→20:01)
[2021-10-27] MEDS: busPIRone 15 MG TAB PO SCH ×3 (08:10→20:02)
[2021-10-27] MEDS: PANTOprazole 40 MG TAB PO SCH (08:10)
[2021-10-27] MEDS: POTASSIUM CHLORIDE 10 MEQ TABCR PO SCH (09:52)
[2021-10-27] MEDS: ENOXAPARIN INJ 40 MG/0.4 ML SYR SQ SCH (09:52)
[2021-10-27] MEDS: FAMOTIDINE 20 MG TAB PO SCH (09:52)
--- NOTE | 2021-10-27 11:20 | Psychiatric Progress Note ---
Date of Service October 27, 2021 Impression / Recommendations Impression Charley Correa is a 65 yo woman with history of anxiety, depression, CVAs, TIAs, complex migraines and mitral valve disease admitted medically for complex migraines. Diagnostically consistent with hyperactive delirium-likely steroid induced. Differential includes other medical causes leading to delirium versus acute monserrat though highly unlikely given no psychiatric history of monserrat and collateral information from hospitalist's discussion with family which supports that this is a dramatic change from her baseline. 10/27/21-Showing significant improvement, delirium appears to be resolving though still some mild mood lability. Continue with haldol for one more day. No EPS, akathisia noted. Anticholinergic effects from haldol could be contributing to urinary retention but apparently improving today. No concerns for acute risk of harm to self given no consistent reports of no SI as delirium has improved. (1) Acute encephalopathy: 10/27/21: -Improved decision making capacity as delirium improves -Daily EKGs -Continue haldol 2.5 mg BID -Will attempt to set her up with outpatient therapy after discharge 10/26/21: -She may not leave AMA due to lack of decision making capacity in setting of acute delirium -Daily EKGs to monitor QTc interval (goal <480 ms/day) -Begin scheduled haldol 2.5 mg BID for delirium (Not to exceed maximum of 10 mg via all sources-po and IM in 24 hours) -For behavioral emergency haldol 2.5 mg IM x1 (Not to exceed maximum of 5 mg via IM in 24 hours) -Continue 1-on-1 for agitation -Continue delirium prevention/management strategies-frequent re-orientation, raising blinds during day/lowering at night, etc -Psych liason will attempt to contact patient's sister Annmarie for further collateral Risk Factors Assessment Do You Have Access To A Gun?: No Interval History Identifying Information 65 yo woman with history of anxiety, depression, CVAs, TIAs, complex migraines and mitral valve disease admitted medically for complex migraines. Psychiatry was consulted after slick [facility]ley for behavioral agitation. Chief Complaint "I thought I was going crazy, I hadn't slept for two days". Review of Systems Notes Slept well. Having some urinary retention. No muscle stiffness or EPS. Subjective Subjective Patient was seen & assessed and interval progress reviewed. Slept well overnight. 1-on-1 discontinued. No behavioral events overnight. Today Charley is fully oriented and able to speak to the distress that occurred as she started to not sleep on the steroids and that she felt "crazy". She recalls that discussing delirium yesterday made her feel much better and she be comes tearful discussing this as well as some of the familial stressors she has been dealing with. She recalls seeing the tail end of a dog in her room two days and is relieved this has resolved. She's open to outpatient therapy. No side effects from haldol. Physical Exam Psychiatric Orientation: alert and oriented x 3 Apperance: appropriately dressed Eye Contact: good eye contact Motor Behavior: no abnormal motor movements; n EPS, n akathisia and n tremor Speech: normal rate/rhythm/volume of speech Affect: + tearful affect and + labile affect Mood: + anxious mood Thought Process: + circumstantial thought process Thought Content: reality based without delusions Suicidal Thoughts: denies suicidal thoughts Homicidal Thoughts: denies homicidal thoughts Hallucinations: no auditory hallucinations and no visual hallucinations Cognition: recent memory grossly intact and language grossly intact Insight: good insight Judgement: + fair judgement Vital Signs (Past 24 Hours) Last Vital Signs Temp 37.1 C 10/27/21 08:19 Pulse 66 10/27/21 08:19 Resp 16 10/27/21 08:19 BP 146/80 H 10/27/21 08:19 Pulse Ox 96 10/27/21 08:19 Results & Data ([facility]) Current Inpatient Medications Current Inpatient Medications: Current Inpatient Medications Acetaminophen/Butalbital/Caffeine (Butalbital/Acetamin/Caffeine Tab) 2 tab PO Q4H PRN PRN Reason: Headache Stop: 11/21/21 22:08 Last Admin: 10/26/21 21:43 Dose: 2 tab Documented by: Amitriptyline HCl (Amitriptyline Hcl 50 Mg Tab) 50 mg PO HS [facility] Stop: 11/21/21 22:29 Last Admin: 10/26/21 21:45 Dose: 50 mg Documented by: Aspirin (Aspirin 81 Mg Ectab) 81 mg PO HS [facility] Stop: 11/21/21 22:29 Last Admin: 10/26/21 21:44 Dose: 81 mg Documented by: Buspirone HCl (Buspirone 15 Mg Tab) 15 mg PO TID [facility]ILL[facility] Stop: 11/21/21 22:29 Last Admin: 10/27/21 08:10 Dose: 15 mg Documented by: Cyanocobalamin (Cyanocobalamin 500 Mcg Tablet (Vitamin B-12)) 1,000 mcg PO QAM [facility] Stop: 11/22/21 08:59 Last Admin: 10/27/21 08:08 Dose: 1,000 mcg Documented by: Ezetimibe (Ezetimibe 10 Mg Tablet) 10 mg PO QAM [facility] Stop: 11/23/21 08:59 Last Admin: 10/27/21 08:08 Dose: 10 mg Documented by: Enoxaparin Sodium (Enoxaparin Inj 40 Mg/0.4 Ml Syr) 40 mg SQ QAM [facility] Stop: 11/26/21 08:59 Last Admin: 10/27/21 09:52 Dose: 40 mg Documented by: Famotidine (Famotidine 20 Mg Tab) 20 mg PO DAILY [facility] Stop: 11/22/21 08:59 Last Admin: 10/27/21 09:52 Dose: 20 mg Documented by: Fexofenadine HCl (Fexofenadine Hcl 180 Mg Tab) 180 mg PO QAM [facility] Stop: 11/22/21 08:59 Last Admin: 10/27/21 08:08 Dose: 180 mg Documented by: Haloperidol (Haloperidol 0.5 Mg Tab) 0.5 mg PO HS PRN PRN Reason: confusion/delirium Stop: 11/23/21 19:29 Last Admin: 10/25/21 08:12 Dose: 0.5 mg Documented by: Haloperidol (Haloperidol 5 Mg Tab) 2.5 mg PO BID [facility] Stop: 11/25/21 13:34 Last Admin: 10/27/21 08:10 Dose: 2.5 mg Documented by: Haloperidol Lactate (Haloperidol Lactate 5 Mg/Ml 1 Ml Vial) 2.5 mg IM Q12 PRN PRN Reason: Agitation Stop: 11/24/21 13:07 Latanoprost (Latanoprost 0.005% Op Soln 2.5 Ml Btl) 1 drops OP HS [facility] Stop: 11/24/21 20:59 Last Admin: 10/26/21 21:45 Dose: 1 drops Documented by: Levothyroxine Sodium (Levothyroxine Sodium 50 Mcg Tablet) 50 mcg PO DAILYBB [facility] Stop: 11/22/21 06:29 Last Admin: 10/27/21 05:53 Dose: 50 mcg Documented by: Lorazepam (Lorazepam 0.5 Mg Tab) 0.5 mg PO QID PRN PRN Reason: Anxiety Stop: 11/21/21 22:29 Last Admin: 10/23/21 15:17 Dose: 0.5 mg Documented by: Ondansetron HCl (Ondansetron 4 Mg Od Tab) 4 mg PO Q8H PRN PRN Reason: Nausea And Vomiting Stop: 11/21/21 23:09 Last Admin: 10/23/21 01:41 Dose: 4 mg Documented by: Pantoprazole Sodium (Pantoprazole 40 Mg Tab) [facility] [place] Stop: 11/22/21 08:59 Last Admin: 10/27/21 08:10 Dose: 40 mg Documented by: Potassium Chloride (Potassium Chloride 10 Meq Tabcr) 10 meq PO DAILY [facility] Stop: 11/22/21 08:59 Last Admin: 10/27/21 09:52 Dose: 10 meq Documented by: Tamsulosin HCl (Tamsulosin Hcl 0.4 Mg Cap) 0.4 mg PO [facility] Stop: 11/21/21 22:29 Last Admin: 10/26/21 21:44 Dose: 0.4 mg Documented by: Valacyclovir HCl (Valacyclovir Hcl 500 Mg Tablet) 500 mg PO [facility] Stop: 11/21/21 22:29 Last Admin: 10/26/21 21:43 Dose: 500 mg Documented by: Venlafaxine HCl (Venlafaxine Hcl Xr 75 Mg Capxr) 225 mg PO DAILY [facility] Stop: 11/22/21 08:59 Last Admin: 10/27/21 08:08 Dose: 225 mg Documented by: Verapamil HCl (Verapamil Hcl 240 Mg Tabcr) 240 mg PO [facility] Stop: 11/21/21 22:29 Last Admin: 10/26/21 21:43 Dose: 240 mg Documented by:
[2021-10-27] MEDS ORDERED: ACETAMINOPHEN 325 MG TAB PO PRN (11:26)
[2021-10-27] MEDS ORDERED: DOCUSATE SODIUM 100 MG CAP PO ONE (11:50)
[2021-10-27] MEDS ORDERED: bisacodyL 5 MG TABEC PO ONE (11:50)
--- NOTE | 2021-10-27 11:59 | Hospitalist Progress Note ---
Date of Service October 27, 2021 Assessment & Plan (1) Acute encephalopathy: Plan: Toxic and/or metabolic patient was confused on 10/25 with word finding difficulties/thought blocking, etc. she appeared to be in the midst of an ongoing complicated status migraine and was treated with IV steroids which seems to be the likely cause of her encephalopathy Solumedrol has been completely discontinued and she has been treated with haloperidol on 2 occasions IM and then started on po haldol scheduled bid on 10/26--> significantly improved today -almost completely resolved psychomotor agitation, flight of ideas, pressured speech, and paranoia Now off 1:1 -It is also noted that she typically takes lorazepam 4 times a day scheduled at home long-term and has not received any lorazepam since 10/23-starting to develop some hypertension but no tachycardia-could be having some benzodiazepine withdrawal Could give lorazepam sparingly as needed for anxiety-discussed with psychiatry -cont Haldol 2.5 mg p.o. twice daily scheduled for 1 more day as per Psych -can give 2.5 mg IM every 12 hours as needed for severe agitation - ECG-QTC is normal at 439 -Continue to provide supportive care, but most likely can dc to home tomorrow (2) Complicated migraine with status migrainosus: Plan: refractory migraine despite prn fioricet and usual chronic migraine meds CTA head with multiple areas of narrowing c/w spasm avoiding triptans solumedrol 40mg TID given x24 hours with successful resolution of her headache, but because steroid psychosis as above-steroids now discontinued NO MRI evidence of acute stroke neuro exam remains normal/stable today -Continue Fioricet as needed Continue verapamil Migraine now completely resolved (3) Hypothyroidism: Plan: TSH in 03/2021 wnl cont synthroid (4) Hyperlipidemia: Plan: long h/o severely elevated LDL but statin-intolerant Total cholesterol 369, LDL 279 Continue zetia Consider adding on gemfibrozil as an outpatient (5) Stroke-like symptoms: Plan: MRI brain neg for acute CVA neuro symptoms resolved symptoms most c/w complicated migraine see above (6) GERD (gastroesophageal reflux disease): Plan: PPI (7) Hx of venous thrombosis and embolism: Plan: continue daily Lovenox (8) Depression: Plan: appears to have underlying depression and/or anxiety patient alluded to multiple stressors including several people who have in her family in the last few years, difficulties with her 2 sons (poor relationship with both), etc I cannot rule out depression with psychosis but will defer that to psychiatry appreciate psych assistance typically takes ativan qid at home-none given here since 10/23, watch for benzo withdrawal -Continue venlafaxine, amitriptyline, buspirone Psych consult appreciated-plans to get set up with outpt therapy (9) Nondisplaced fracture of fifth left metatarsal bone: Plan: -Nondisplaced, no surgery needed -Appreciate orthopedics consultation -Continue icing -Tylenol as needed for pain-ordered today -Postop hard shoe to be ordered to be warm while walking -Weight-bear as tolerated or heel weightbearing worked with PT (10) Anxiety: Plan: As above (11) Constipation: Plan: no BM since admission, is a chronic issue continue daily bisacodyl 5mg now and docusate 200mg daily which is what she takes at home (12) Urinary retention: Plan: straight cathed for 750mL on night of 05/25 no urine output today asked RN to bladder scan now and straight cath if needed for PVR>350 mL constipation and medication SE from haldol could be contributing Plan: Patient is estranged from her son and previous hospitalist tried to contact them without success Disposition-continued stay on medical/surgical until delirium resolves, but is overall much improved and likely can dc to home tomorrow The patient's sister Annmarie (Annmarie's number - [phone]) would be her point of contact Admission and Anticipated Discharge Date Admission Date: October 24, 2021 Subjective Feeling better today, was able to sleep all night, less anxious. Has not had a BM in many days and also reports she has not urinated since 8 PM last night. SHe has no urge to void and no abd pain. She is eating and drinking. Ambulated on her heel today with PT. Has some pain in left foot but is icing it and it feels better, wants tylenol. Has no headache at all, nausea resolved Review of Systems Review of Systems: All systems reviewed & are unremarkable except as noted in HPI & below Physical Exam Constitutional: WD/WN, vitals as above Eyes: + anicteric sclerae ENMT: external ear and nose normal, oropharynx normal Neck: trachea midline, no thyromegaly Respiratory: normal respiratory effort, lungs clear to auscultation Cardiovascular: RRR, no murmur, no edema Chest (Breasts): Chest: normal inspection of chest Gastrointestinal (Abdomen): normal bowel sounds, soft, nontender, no hepatosplenomegaly Musculoskeletal: Extremities: + extremities abnormal to inspection (Left dorsal lateral foot with edema and bruising but improved), no cyanosis and no clubbing Skin: no rashes, warm and dry Neurologic: moves all extremities and awake; no focal motor deficits Psychiatric: Orientation: alert, oriented x 3 and cooperative Apperance: appropriately dressed Eye Contact: good eye contact Motor Behavior: no psychomotor agitation (resolved) Speech: normal rate/rhythm/volume of speech; no pressured speech Affect: euthymic affect Thought Process: no flight of ideas Insight: good insight Lymphatic: no lymphedema Results & Data Results & Data ([facility]) Vital Signs (Past 12 Hours) Vital Signs Temp Pulse Pulse Resp BP Pulse Ox 10/27/21 08:19 37.1 C 66 16 146/80 H 96 10/27/21 04:34 83 131/78 95 PG Care Time/CCT Total # of Minutes Spent Total Time Spent with Patient: Total time spent is greater than 50% in coordination of care (as documented) at patient's floor/unit and/or counseling patient: Coding Level of Care Code 32941 Subseq Hosp Care Lvl 2 Diagnoses Acute encephalopathy G93.40 Complicated migraine with status migrainosus G43.101 Hypothyroidism E03.9 Hyperlipidemia E78.5 Stroke-like symptoms R29.90 GERD (gastroesophageal reflux disease) K21.9 Hx of venous thrombosis and embolism Z86.718 Depression F32.A Nondisplaced fracture of fifth left metatarsal bone S92.355A Anxiety F41.9 Constipation K59.00 Urinary retention R33.9
--- NOTE | 2021-10-27 16:30 | Electrocardiogram Report ---
Test Reason : Blood Pressure : / mmHG Vent. Rate : 077 BPM Atrial Rate : 077 BPM P-R Int : 144 ms QRS Dur : 080 ms QT Int : 388 ms P-R-T Axes : 044 -04 055 degrees QTc Int : 439 ms Normal sinus rhythm Normal ECG When compared with ECG of 22-OCT-2021 15:27, No significant change was found Confirmed by Jerry Wiley ([id number]) on 10/27/2021 4:30:29 PM Referred By: REFERRED SELF Confirmed By:Jerry Wiley
[2021-10-27] MEDS: ASPIRIN 81 MG ECTAB PO SCH (20:01)
[2021-10-27] MEDS: TAMSULOSIN HCL 0.4 MG CAP PO SCH (20:01)
[2021-10-27] MEDS: VERAPAMIL HCL 240 MG TABCR PO SCH (20:01)
[2021-10-27] MEDS: LATANOPROST 0.005% OP SOLN 2.5 ML BTL OP SCH (20:02)
[2021-10-27] MEDS: valACYclovir HCL 500 MG TABLET PO SCH (20:02)
[2021-10-27] MEDS: AMITRIPTYLINE HCL 50 MG TAB PO SCH (20:02)
[2021-10-28] MEDS: LEVOTHYROXINE SODIUM 50 MCG TABLET PO SCH (06:23)
[2021-10-28] MEDS: busPIRone 15 MG TAB PO SCH ×2 (07:48→12:47)
[2021-10-28] MEDS: haloperidoL 5 MG TAB PO SCH (07:48)
[2021-10-28] MEDS: FEXOFENADINE HCL 180 MG TAB PO SCH (07:49)
[2021-10-28] MEDS: EZETIMIBE 10 MG TABLET PO SCH (07:49)
[2021-10-28] MEDS: CYANOCOBALAMIN 500 MCG TABLET (VITAMIN B-12) PO SCH (07:50)
[2021-10-28] MEDS: ENOXAPARIN INJ 40 MG/0.4 ML SYR SQ SCH (07:50)
[2021-10-28] MEDS: VENLAFAXINE HCL XR 75 MG CAPXR PO SCH (07:50)
[2021-10-28] MEDS: PANTOprazole 40 MG TAB PO SCH (07:50)
[2021-10-28] MEDS: FAMOTIDINE 20 MG TAB PO SCH (07:59)
[2021-10-28] MEDS: POTASSIUM CHLORIDE 10 MEQ TABCR PO SCH (07:59)
--- NOTE | 2021-10-28 11:38 | Discharge Summary ---
Date of Service October 28, 2021 Admission HPI Per Admitting Provider Charley Correa is a 65 year old right-handed female with past medical history of TIAs and complex migraine who presents to the ER with confusion, slurred speech, intermittent weakness and numbness in both arms and legs. The patient reports getting her Ajovy injection today. She felt dizzy coming back to her house but was able to make herself some pork on the stove. While sitting down to eat this she remembers dropping the plate with a right hand due to weakness in this arm. She went to clean this up but was very unbalanced and fell onto the floor. She became very confused and was slurring her words. Her neighbor found her and called EMS. Per ER night EMS noted her speech deteriorating throughout the transport. Since coming to the emergency room she reports worsening severe pulsating headache bilaterally with associated nausea and vomiting. She is having intermittent bilateral extremity numbness more so in her right upper extremity. She denies any current weakness. She is still having some d ifficulty with word finding ability. No diplopia or loss of vision however lights aggravate her headache. She denies any chest pain, shortness of breath, fever, chills, urinary symptoms, abdominal pain, diarrhea, constipation, melena, bright red blood in stool. In the ER a stroke alert was called. Last known well was indeterminable therefore she was not a TPA candidate. Telestroke neurologist recommended further work-up for a stroke. She was referred to medicine for admission ongoing management of this. I suspect since the stroke call she is much less confused and I am able to gain a much more detailed history than the ER note. Principal Diagnosis Complex migraine, Steroid psychosis, left 5th metatarsal fracture Discharge Exam Constitutional WD/WN, vitals as above Eyes + anicteric sclerae ENMT external ear and nose normal, oropharynx normal Neck trachea midline, no thyromegaly Respiratory normal respiratory effort, lungs clear to auscultation Cardiovascular RRR, no murmur, no edema Chest (Breasts) Chest: normal inspection of chest Gastrointestinal (Abdomen) normal bowel sounds, soft, nontender, no hepatosplenomegaly Musculoskeletal Extremities: + extremities abnormal to inspection (Left dorsal lateral foot with edema and bruising but improved), no cyanosis and no clubbing Skin no rashes, warm and dry Neurologic moves all extremities and awake; no focal motor deficits Psychiatric Orientation: alert, oriented x 3 and cooperative Apperance: appropriately dressed Eye Contact: good eye contact Motor Behavior: no psychomotor agitation (resolved) Speech: normal rate/rhythm/volume of speech; no pressured speech Affect: euthymic affect Thought Process: no flight of ideas Insight: good insight Lymphatic no lymphedema Discharge Data Allergies Allergy/AdvReac Type Severity Reaction Status Date / Time erythromycin base Allergy Unknown VOMITTING Verified 10/22/21 15:37 ciprofloxacin [From Cipro] AdvReac Severe nausea Verified 10/22/21 15:37 methylprednisolone AdvReac Severe Psychosis Verified 10/28/21 11:26 Macrolide Antibiotics AdvReac Unknown STOMACH Verified 10/22/21 15:37 UPSET Consultations 10/22/21 16:25 ED Decision to Admit Stat 10/25/21 13:08 Consult Psychiatry Routine 10/26/21 11:26 Consult Orthopedic Surgery Routine Ordered Studies 10/22/21 15:09 CT angio head w con Stat CT angio neck with con Stat CT head/brain wo con Stat 10/22/21 16:32 MR brain wo con Stat Hospital Course (1) Acute encephalopathy: Toxic and/or metabolic patient was confused on 10/25 with word finding difficulties/thought blocking, etc. she appeared to be in the midst of an ongoing complicated status migraine and was treated with IV steroids which seems to be the likely cause of her encephalopathy -had psychomotor agitation, flight of ideas, pressured speech, and paranoia Now off 1:1 Solumedrol has been completely discontinued and she has been treated with haloperidol on 2 occasions IM and then started on po haldol scheduled bid on 10/26--> encephalopathy now resolved -It is also noted that she typically takes lorazepam 4 times a day scheduled at home long-term and has not received any lorazepam since 10/23-starting to develop some hypertension but no tachycardia-could be having some benzodiazepine withdrawal Gave po haldol x 2 days and now much improved, dc haldol - ECG-QTC is normal at 447 -stable for dc to home (2) Complicated migraine with status migrainosus: refractory migraine despite prn fioricet and usual chronic migraine meds CTA head with multiple areas of narrowing c/w spasm avoiding triptans solumedrol 40mg TID given x24 hours with successful resolution of her headache, but because steroid psychosis as above-steroids now discontinued NO MRI evidence of acute stroke neuro exam remains normal/stable today -Continue Fioricet as needed Continue verapamil Migraine now completely resolved f/u with Neuro as outpt (3) Hypothyroidism: TSH in 03/2021 wnl cont synthroid (4) Hyperlipidemia: long h/o severely elevated LDL but statin-intolerant Total cholesterol 369, LDL 279 started zetia Consider adding on gemfibrozil as an outpatient f/u PCP (5) Stroke-like symptoms: MRI brain neg for acute CVA neuro symptoms resolved symptoms most c/w complicated migraine see above (6) GERD (gastroesophageal reflux disease): PPI (7) Hx of venous thrombosis and embolism: received daily Lovenox (8) Depression: appears to have underlying depression and/or anxiety patient alluded to multiple stressors including several people who have in her family in the last few years, difficulties with her 2 sons (poor relationship with both), etc I cannot rule out depression with psychosis but will defer that to psychiatry appreciate psych assistance typically takes ativan qid at home-none given here since 10/23, watch for benzo withdrawal -Continue venlafaxine, amitriptyline, buspirone Psych consult appreciated-plans to get set up with outpt therapy (9) Nondisplaced fracture of fifth left metatarsal bone: -Nondisplaced, no surgery needed -Appreciate orthopedics consultation -Continue icing -Tylenol as needed for pain -Postop hard shoe to be ordered to be warm while walking -Weight-bear as tolerated or heel weightbearing worked with PT f/u with Ortho in 2 weeks for repeat xray (10) Anxiety: As above (11) Constipation: chronic issue finally had small BM on 10/28 with daily bisacodyl, docusate, and prune juice (12) Urinary retention: straight cathed for 750mL on night of 05/25 now resolved work on constipation does also take Flomax and sees [employer] for h/o bladder sling Disposition-dc to home today Total Time Total Time Spent Total Time Spent (In Minutes): 40 min Discharge Plan Discharge Items Patient Disposition: Home - Self-Care Reason For Visit: STROKE-LIKE SYMPTOMS Discharge Diagnosis: Complex migraine, steroid-induced psychosis/encephalopathy-resolved, left fractured metatarsal-nondisplaced, urinary retention Condition on Discharge: Good Activity: As commented below Bathing: No limitations Exercise Comment: Left foot heel weight bear as tolerated Non-emergency contact: Primary Care Provider, Surgeon and Therapist Call non-emergency contact if: you have any medication questions, your symptoms worsen, your pain is not controlled, your pain is worsening and your pain is unusual for you Follow-up/Referrals: Stacey Aguero MD [Primary Care Provider] - 11/04/21 11:30 am (APPT WITH DR STACEY FLORES) Maximilian Osorio DO [Surgeon] - (Follow up in 2 weeks for your left foot fracture) Diet: Regular Addtl Attending Provider Instructions: You were admitted for stroke-like symptoms and were found to NOT have a stroke. These symptoms were caused by a migraine headache which resolved with steroids. Your brain MRI was normal. Unfortunately, the steroids cause you to have a severe delirium which resolved with time and with a medication called Haldol. You no longer need to take Haldol, but it is recommended that you follow up with a therapist for counseling as an outpatient as we discussed. As part of your workup for stroke, your cholesterol was checked and was found to be severely elevated. Because you have had trouble with statin drugs in the past, you were started on a medication called Zetia to help lower your cholesterol. This drug does not tend to cause the same side effects as the statin drugs do. Please follow up with your PCP regarding this issue. Unfortunately, you also broke your left foot at some point during your hospitalization. This does not require surgery. Please continue icing the left foot, keep it elevated when you are sitting down, and take acetaminophen as needed for pain. Wear the cast shoe when you are walking, but it can be removed for sleeping/lying down. You can bear weight on the foot as tolerated or walk on your heel. Follow up with the Orthopedic Surgeon in 2 weeks. Pending Studies at Discharge: No Stand-Alone Forms: [employer], Smoking Cessation Medications and DC Order Prescriptions: New ezetimibe 10 mg Tablet 10 mg PO QAM Qty: 30 RF: 0 acetaminophen 325 mg Tablet 650 mg PO Q4H PRN (Reason: pain) Qty: 30 RF: 0 Continued famotidine 20 mg tablet 20 mg PO DAILY Qty: 30 RF: 11 levothyroxine 50 mcg tablet 50 mcg PO QAM Qty: 30 RF: 11 meclizine 25 mg tablet 25 mg PO TID PRN (Reason: motion sickness) Qty: 30 RF: 1 tamsulosin 0.4 mg capsule 0.4 mg PO HS Qty: 30 RF: 11 venlafaxine 225 mg tablet extended release 24hr 225 mg PO DAILY Qty: 30 RF: 11 valacyclovir 500 mg tablet 500 mg PO HS Qty: 30 RF: 11 pantoprazole 40 mg tablet,delayed release (DR/EC) 40 mg PO QAM Qty: 30 RF: 11 verapamil 240 mg capsule,ext rel. pellets 24 hr 240 mg PO HS 30 Days Qty: 30 RF: 5 Ajovy Autoinjector 225 mg/1.5 mL auto-injector 675 mg SQ .COMPLEX Qty: 4.5 RF: 3 amitriptyline 50 mg tablet 50 mg PO HS Qty: 30 RF: 2 potassium chloride [Klor-Con 10] 10 mEq tablet extended release 10 meq PO DAILY Qty: 30 RF: 11 lorazepam 0.5 mg tablet 0.5 mg PO QID PRN (Reason: Anxiety) Qty: 120 RF: 0 fluticasone propionate 50 mcg/actuation spray,suspension 1 spray intranasal QAM PRN (Reason: Allergy Symptoms) Qty: 16 RF: 3 [id number]-[id number]-hhkz 50-325-40 mg capsule 1 - 2 cap PO UD PRN (Reason: pain) Qty: 20 RF: 0 buspirone 15 mg tablet 15 mg PO TID Qty: 90 RF: 0 estradiol [Estrace] 0.01 % (0.1 mg/gram) cream 1 g vaginal .COMPLEX Qty: 42.5 RF: 2 ondansetron 4 mg tablet,disintegrating 4 mg PO Q8H PRN (Reason: Nausea And Vomiting) Qty: 30 RF: 3 furosemide 20 mg tablet 10 mg PO DAILY Qty: 30 RF: 3 fexofenadine [[place] Allergy] 180 mg tablet 180 mg PO QAM Qty: 30 RF: 3 aspirin 81 mg Tablet,Delayed Release (Dr/Ec) 81 mg PO HS RF: 0 cyanocobalamin (vitamin B-12) 1,000 mcg Lozenge 1,000 mcg SUBLINGUAL QAM RF: 0 latanoprost 0.005 % drops 1 drp ophthalmic (eye) UD RF: 0 Discharge Orders: Discharge Order (Routine); Ordered 10/28/21 Ordered By: Nan Barragan/Other Patient Handouts: Prediabetes, 5 Steps for Eating Healthier Admission Data Admit Date/Time: 10/24/21 11:10 Attending Provider: Nan Barragan Admit Provider: Rafael Suero Primary Care Provider: Stacey Aguero Other Providers: Rafael Suero ; Loulou Estrada ; Angelina Ventura ; Teresa Wong ; Jacky Cole ; Maximilian Osorio Coding Level of Care Code D/C DAY MANAGEMENT >30 MINS Diagnoses Acute encephalopathy G93.40 Complicated migraine with status migrainosus G43.101 Hypothyroidism E03.9 Hyperlipidemia E78.5 Stroke-like symptoms R29.90 GERD (gastroesophageal reflux disease) K21.9 Hx of venous thrombosis and embolism Z86.718 Depression F32.A Nondisplaced fracture of fifth left metatarsal bone S92.355A Anxiety F41.9 Constipation K59.00 Urinary retention R33.9
--- NOTE | 2021-10-28 11:48 | Communication Note ---
Date of Service: October 28, 2021 Attempted to see Charley multiple times this morning but she was in the bathroom getting ready for the day. Per review of chart and discussion with psych liaketty she continues to do well with only minimal confusion at one point overnight but behavior remains organized and appropriate. With renee liaketty this morning there was no confusion and she reported good sleep and mood stability. Delirium resolving so from a psychiatric standpoint stable for discharge once medically ready. Would discontinue haldol at discharge given resolution of delirium. Psychiatric liaketty has provided her with outpatient therapy resources as she wishes to set up her internet and then begin teletherapy rather than driving for in-person visits. Renee adam also communicated therapy recommendations to patient's PCP office so they can follow-up with her on this.
--- NOTE | 2021-10-30 19:59 | Electrocardiogram Report ---
Test Reason : Blood Pressure : / mmHG Vent. Rate : 069 BPM Atrial Rate : 069 BPM P-R Int : 148 ms QRS Dur : 080 ms QT Int : 418 ms P-R-T Axes : 062 048 079 degrees QTc Int : 447 ms Normal sinus rhythm Nonspecific T wave abnormality Abnormal ECG When compared with ECG of 26-OCT-2021 13:36, No significant change was found Confirmed by Jerry Wiley ([id number]) on 10/30/2021 7:59:14 PM Referred By: REFERRED SELF Confirmed By:Jerry Wiley
== END 2021-10-28 14:24 | disposition home or self-care (01) | DRG 102 ==
LOC: ED 14:59 → EDINP 14:59 → SUATTDRO 17:34 → EDINP 22:12 → 2S 10-23 15:01 → SUATTDRO 10-24 11:10 → 2S 10-25 13:51 → 3E 10-26 01:12

== ENCOUNTER 2021-12-20 17:49 | Observation (INO) ==
[2021-12-20] MEDS ORDERED: SODIUM CHLORIDE 0.9% 1000ML 1,000 ML IV SCH (18:15)
[2021-12-20 18:19] LABS: Basophils # (auto) 0.02 K/uL (0-0.2); Basophils % (auto) 0.4 %; Eosinophils # (auto) 0.08 K/uL (0-0.5); Eosinophils % (auto) 1.5 %; Hematocrit (blood only) 41.4 % (37-47); Hemoglobin 13.9 g/dL (12.0-16.0); Immature Granulocytes # (auto) 0.01 K/uL (0.00-0.02); Immature Granulocytes % (auto) 0.2 %; Lymphocytes # (auto) 1.63 K/uL (1.2-3.4); Mean Corpuscular Hemoglobin 31.4 pg (25-34); Mean Corpuscular Hgb Conc 33.6 g/dL (32-36); Mean Corpuscular Volume 93.5 fL (80-100); Mean Platelet Volume 9.2 fL (7.4-10.4); Monocytes % (auto) 7.4 %; Neutrophils % (auto) 60.5 %; Platelet Count 287 K/uL (130-400); RDW Coefficient of Variation 13.1 % (11.5-14.5); RDW Standard Deviation 45.4 fL (36.4-46.3); Red Blood Count 4.43 M/uL (4.2-5.4); White Blood Count 5.44 K/uL (4.8-10.8)
[2021-12-20 18:30] LABS: Partial Thromboplastin Time 26.5 Seconds (21.0-31.0); Prothrombin Time 9.8 Seconds (9.0-12.0)
--- NOTE | 2021-12-20 18:38 | XRay Report ---
XR chest 1V portable CLINICAL HISTORY: Stroke Like Symptoms. Evaluate cardiopulmonary status COMPARISON STUDY: 10/24/2021 TECHNIQUE: 1 view of the chest FINDINGS: Single frontal view of the chest demonstrates the cardiomediastinal silhouette to be within normal li mits. The lungs are clear of alveolar opacities. There is no evidence for pleural effusion. There is no evidence for vascular congestion. There is no acute osseous pathology. IMPRESSION: No acute cardiopulmonary disease. ACT 112: Negative or not required by law. Electronically signed by: Rakesh Hernandez M.D. 12/20/2021 6:37 PM
[2021-12-20 18:39] LABS: Alanine Aminotransferase 24 U/L (7-52); Albumin Globulin Ratio 1.7 (0.9-2); Albumin Level 4.8 gm/dl (3.4-5.0); Alkaline Phosphatase 101 U/L (34-104); Anion Gap 8 (3-11); Aspartate Aminotransferase 21 U/L (13-39); BUN Creatinine Ratio 10.9 (10-20); Bilirubin,Total 0.3 mg/dl (0.2-1.0); Blood Urea Nitrogen 10 mg/dl (6-23); Calcium 9.4 mg/dl (8.5-10.1); Carbon Dioxide 28 mmol/L (21-32); Chloride 100 mmol/L (98-107); Creatinine Clr Calc Pharmacy 58.9 ml/min; Est GFR (African American) 75.7 ml/min; Est GFR (Non-African American) 65.3 ml/min; Globulin 2.8 gm/dl (2.5-4.0); Glucose 93 mg/dl (70-99(Fasting)); Potassium 3.5 mmol/L (3.5-5.1); Sodium 136 mmol/L (136-145); Total Protein 7.6 gm/dl (6.0-8.3); Troponin I < 0.03 ng/ml (0-0.04)
[2021-12-20] MEDS ORDERED: VERAPAMIL HCL 120 MG TABCR PO STA (18:39)
[2021-12-20] MEDS ORDERED: lisinopril 5 MG TAB PO ONE (18:39)
--- NOTE | 2021-12-20 19:20 | Emergency Department Note ---
Impression & Plan Stroke-like symptoms, Right sided numbness, Acute right-sided weakness, Fall ED Provider Note INFORMANT: Patient ED PROVIDER(S): Austin Marin MD CHIEF COMPLAINT: Strokelike symptoms PLAN: Disposition: Admitted Condition: Good Outpatient prescription management: none Referral: None MEDICAL DECISION MAKING: Patient presented because of strokelike symptoms. They were resolved upon arrival. Her history was concerning. Patient was also very hypertensive. She has not taken her blood pressure medications due to the inability to get to the pharmacy secondary to the bad weather. ECG, blood work, and neuroimaging performed. Patient was given her verapamil and lisinopril. CT imaging including angiography was negative. Patient's blood work was unremarkable. Troponin negative. ECG did show some changes but the patient was not having any chest pain. Patient was given a dose of aspirin. Given her symptoms and situation further management in the hospital was felt to be appropriate. Consultation was made with Dr. Jonathan Dong of the [facility] service. Patient was evaluated in the ER for further management. . Triage Nursing notes reviewed and agree them. Vital Signs: reviewed and remarkable for significant hypertension Differential diagnosis: CVA, TIA, hypertensive emergency, complex migraine, infection, dehydration, metabolic abnormality, hypo/hyperglycemia, electrolyte disturbance, anemia, h ypoxia, cardiac sources, intracerebral event, toxicologic, neurologic, as well as other pathologies. Diagnostics interpreted by me: ECG: Twelve-lead ECG reveals a sinus rhythm with PVCs at 73 bpm. There is mild anterior T wave inversion present. No ST elevation. When compared to 28 October 2021 the T wave inversion and ectopy is new. Cardiac Monitoring: Cardiac monitoring ordered by me: The patient was placed on continuous cardiac monitoring and observed. It revealed a normal sinus rhythm at 62 beats per minute without ectopy or evidence of dysrhythmia. Imaging studies: Chest x-ray. Findings: A chest x-ray was performed and revealed no pneumothorax, effusion, infiltrate, pulmonary edema, free air under the diaphragm, or wide mediastinum. Impression: No acute disease. CT of the head and CT angiography of the head and neck negative for acute pathology. I refer you to the EMR for further details. HPI: The patient is a 66 year old female who presents to the Emergency Room with complaints of strokelike symptoms. This started around noon today and is currently resolved after about 5 hours. Patient states that she had right-sided numbness of her arm and leg. The patient also notes the following associated symptoms, weakness in the right side. Patient states that she developed the symptoms and that caused a fall. She did strike her head. She had headache afterwards. She does have a history of hypertension, TIA, and complex migraine. Patient states that she has had a stroke. She was recently hospitalized for similar issues. She was also followed up by her primary physician. The patient's prescription medications have not been refilled yet because she was unable to get to the pharmacy secondary to the icy conditions. She has not taken her blood pressure medication in several days and has not picked up her newer blood pressure prescription. Patient is supposed to be on verapamil daily as well as baby aspirin. She did not take those. Her PCP prescribed her lisinopril 10 mg. Upon arrival patient was significantly hypertensive. The patient has been given no medication prehospital for relieving factors. Current pain is rated as zero/10. Upon arrival her symptoms resolved and stroke scale was zero. Pt denies LOC, current headache, fevers, chills, diaphoresis, visual changes, neck pain, chest pain, breathing difficulties, nausea, vomiting, abdominal pain, back pain, melena, hematochezia, urinary symptoms, l ymphadenopathy, rash, or other complaints. ROS: See above HPI for pertinent positives & negatives. A total of 10 systems reviewed and were otherwise negative. PAST MEDICAL HISTORY:See Below , CVA, TIA PAST SURGICAL HISTORY:See Below, FAMILY HISTORY:See Below SOCIAL HISTORY:See Below, lives alone HOME MEDICATIONS:See Below ALLERGIES:See Below VITALS:See Below PHYSICAL EXAMINATION: GENERAL: Awake, alert, well appearing, no distress HENT: Normocephalic, atraumatic. Oropharynx unremarkable. EYES: PERRL. EOMI. Normal conjunctiva. Sclera non-icteric. NECK: Supple. Normal inspection. Non-tender. No nuchal rigidity. FROM. No bruit. RESPIRATORY: Breath sounds equal. No wheezes. No rhonchi. Normal respiratory effort. CARDIAC: Normal rate. Regular rhythm. No murmurs. No rubs. No JVD. GI: Soft, non distended. No tenderness to palpation. No rebound or guarding. No masses. RECTAL: Deferred. MUSCULOSKELETAL: Unremarkable. No edema. No discoloration. Gross motor strength symmetric. NEURO: Cranial nerves 2-12 grossly intact. Normal sensorium. No sensory or motor deficits noted. Speech normal. No pronator drift. SKIN: No rash or jaundice noted. LYMPH: No adenopathy. Austin Marin MD Past Med/Surg History Medical History Abnormal brain MRI Achalasia, esophageal Acid reflux Arthralgia of multiple sites Bladder retention of urine Cervical radiculopathy Esophageal dysmotility Headache, hemiplegic migraine Hx of venous thrombosis and embolism (09/20/11) Incomplete bladder emptying Old myocardial infarct (09/20/11) Osteoarthritis of hands, bilateral Peripheral edema Plantar fasciitis Slow transit constipation Vaginal prolapse Surgical History H/O hysterectomy for benign disease (09/20/11) H/O ovarian cystectomy H/O rectocele repair H/O varicose vein ligation and stripping History of appendectomy (09/20/11) History of appendectomy History of bladder surgery History of removal of ovarian cyst (09/20/11) S/P total abdominal hysterectomy Family History Mother Myocardial infarction Denies family history of Ovarian cancer Prostate cancer Breast cancer Colorectal cancer Social History Smoking Status: Never smoker Second Hand Exposure: No; Hx Alcohol Use: No Hx Substance Use: No Preferred Language: Peruvian Communication Ability: Effective Employment Training Specialist Required: No Beliefs That Will Affect Care: None marital status: / Current Living Situation: Alone current occupational status: employed 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 How many Children do You have: 2 Other Information That Helps Us Care for You: No Feels Safe at Home: Yes Safety Concerns: Feels Safe At This Time Childhood Exposure to Second-Hand Smoke: No caffeine: Yes Dental Care, Regularly: No Physical Activity Frequency: Daily Seatbelt Use: always Sunscreen Use: Yes (sometimes) Assistive Devices: Glasses Allergies Allergies Allergy/AdvReac Type Severity Reaction Status Date / Time erythromycin base Allergy Unknown VOMITTING Verified 12/20/21 18:52 ciprofloxacin [From Cipro] AdvReac Severe nausea Verified 12/20/21 18:52 methylprednisolone AdvReac Severe Psychosis Verified 12/20/21 18:52 Macrolide Antibiotics AdvReac Unknown STOMACH Verified 12/20/21 18:52 UPSET Home Meds Home Medications Medication Instructions Recorded Confirmed aspirin 81 mg tablet,delayed 81 mg PO HS 06/12/19 12/20/21 release cyanocobalamin (vitamin B-12) 1,000 mcg SUBLINGUAL QAM 05/03/20 12/20/21 1,000 mcg sublingual lozenge latanoprost 0.005 % eye drops 1 drp OPHTHALMIC (EYE) UD 10/22/21 12/20/21 Previous Rx's Medication Instructions Recorded famotidine 20 mg tablet 20 mg PO DAILY #30 tab 12/11/20 meclizine 25 mg tablet 25 mg PO TID PRN #30 tab 12/30/20 tamsulosin 0.4 mg capsule 0.4 mg PO HS #30 cap 01/13/21 venlafaxine 225 mg tablet,extended 225 mg PO DAILY #30 tab 01/13/21 release 24 hr ondansetron 4 mg disintegrating 4 mg PO Q8H PRN #30 tab 02/05/21 tablet pantoprazole 40 mg tablet,delayed 40 mg PO QAM #30 tab 03/12/21 release valacyclovir 500 mg tablet 500 mg PO HS #30 tab 03/12/21 estradiol (Estrace) 1 g VAGINAL .COMPLEX #42.5 g 05/19/21 fexofenadine 180 mg tablet 180 mg PO QAM #30 tab 05/25/21 ([facility]) fremanezumab-vfrm 225 mg/1.5 mL 675 mg SQ .COMPLEX #4.5 ml 07/01/21 subcutaneous auto-injector (Ajovy) potassium chloride 10 mEq 10 meq PO DAILY #30 tab 10/12/21 tablet,extended release (Klor-Con) fluticasone propionate 50 1 spray INTRANASAL QAM PRN #16 g 10/15/21 mcg/actuation nasal spray,suspension vpzdxfckuh-uvrfwkzrwtayn-esvryesa 1 - 2 cap PO UD PRN #20 cap 10/16/21 50 mg-325 mg-40 mg capsule ezetimibe 10 mg tablet 10 mg PO QAM #30 tab 10/28/21 buspirone 10 mg tablet 10 mg PO TID #90 tab 11/05/21 amitriptyline 50 mg tablet 50 mg PO HS #30 tab 12/03/21 furosemide 20 mg tablet 10 mg PO DAILY #30 tab 12/03/21 levothyroxine 50 mcg tablet 50 mcg PO QAM #30 tab 12/03/21 verapamil 240 mg 24 hr 240 mg PO HS 30 Days #30 cap 12/03/21 capsule,extended release lorazepam 0.5 mg tablet 0.5 mg PO TID PRN #60 tab 12/11/21 lisinopril 10 mg tablet 10 mg PO DAILY #30 tab 12/18/21 Results & Data (ED) Vital Signs Vital Signs - 24 hr 12/20/21 17:42 12/20/21 17:59 12/20/21 18:00 Temperature 36.8 C Temperature Source Oral Pulse Rate 80 74 76 Pulse Rate [Apical] Pulse Rate from SpO2 Sensor 75 77 Respiratory Rate 17 18 18 Respiratory Effort / Characteristics Non-Labored Respiratory Depth Normal Blood Pressure 190/101 H 173/99 H Blood Pressure [Left Arm] Blood Pressure Mean 130 123 Blood Pressure Mean [Left Arm] Blood Pressure Position Sitting Blood Pressure Position [Left Arm] Pulse Oximetry 98 96 96 Oxygen Delivery Method Room Air Sepsis Recent Fever Within 48 Hours No Sepsis New/Unexplained Change in Mental Status No Sepsis Action Taken by Nursing No Action Required 12/20/21 18:10 12/20/21 18:20 12/20/21 18:30 Temperature Temperature Source Pulse Rate 71 73 71 Pulse Rate [Apical] Pulse Rate from SpO2 Sensor 72 73 72 Respiratory Rate 20 24 24 Respiratory Effort / Characteristics Respiratory Depth Blood Pressure 167/92 H Blood Pressure [Left Arm] Blood Pressure Mean 117 Blood Pressure Mean [Left Arm] Blood Pressure Position Blood Pressure Position [Left Arm] Pulse Oximetry 100 98 97 Oxygen Delivery Method Sepsis Recent Fever Within 48 Hours Sepsis New/Unexplained Change in Mental Status Sepsis Action Taken by Nursing 12/20/21 18:40 12/20/21 18:50 12/20/21 19:30 Temperature Temperature Source Pulse Rate 70 74 77 Pulse Rate [Apical] Pulse Rate from SpO2 Sensor 70 70 Respiratory Rate 22 24 Respiratory Effort / Characteristics Respiratory Depth Blood Pressure Blood Pressure [Left Arm] Blood Pressure Mean Blood Pressure Mean [Left Arm] Blood Pressure Position Blood Pressure Position [Left Arm] Pulse Oximetry 98 96 Oxygen Delivery Method Sepsis Recent Fever Within 48 Hours Sepsis New/Unexplained Change in Mental Status Sepsis Action Taken by Nursing 12/20/21 19:33 12/20/21 19:37 12/20/21 19:40 Temperature Temperature Source Pulse Rate 74 70 71 Pulse Rate [Apical] Pulse Rate from SpO2 Sensor 73 70 71 Respiratory Rate 22 21 20 Respiratory Effort / Characteristics Respiratory Depth Blood Pressure 177/85 H 177/96 H Blood Pressure [Left Arm] Blood Pressure Mean 115 123 Blood Pressure Mean [Left Arm] Blood Pressure Position Blood Pressure Position [Left Arm] Pulse Oximetry 100 97 99 Oxygen Delivery Method Sepsis Recent Fever Within 48 Hours Sepsis New/Unexplained Change in Mental Status Sepsis Action Taken by Nursing 12/20/21 19:50 12/20/21 20:00 12/20/21 20:10 Temperature Temperature Source Pulse Rate 70 67 69 Pulse Rate [Apical] Pulse Rate from SpO2 Sensor 70 68 68 Respiratory Rate 20 21 25 H Respiratory Effort / Characteristics Respiratory Depth Blood Pressure 175/92 H Blood Pressure [Left Arm] Blood Pressure Mean 119 Blood Pressure Mean [Left Arm] Blood Pressure Position Blood Pressure Position [Left Arm] Pulse Oximetry 95 96 99 Oxygen Delivery Method Sepsis Recent Fever Within 48 Hours Sepsis New/Unexplained Change in Mental Status Sepsis Action Taken by Nursing 12/20/21 20:20 12/20/21 20:25 12/20/21 20:30 Temperature Temperature Source Pulse Rate 67 66 Pulse Rate [Apical] 62 Pulse Rate from SpO2 Sensor 68 66 Respiratory Rate 21 20 19 Respiratory Effort / Characteristics Respiratory Depth Blood Pressure 162/94 H Blood Pressure [Left Arm] 175/92 H Blood Pressure Mean 116 Blood Pressure Mean [Left Arm] 119 Blood Pressure Position Blood Pressure Position [Left Arm] Sitting Pulse Oximetry 96 98 96 Oxygen Delivery Method Room Air Sepsis Recent Fever Within 48 Hours Sepsis New/Unexplained Change in Mental Status Sepsis Action Taken by Nursing 12/20/21 20:40 12/20/21 20:54 12/20/21 21:00 Temperature Temperature Source Pulse Rate 66 70 62 Pulse Rate [Apical] Pulse Rate from SpO2 Sensor 65 68 63 Respiratory Rate 23 21 20 Respiratory Effort / Characteristics Respiratory Depth Blood Pressure 174/91 H Blood Pressure [Left Arm] Blood Pressure Mean 118 Blood Pressure Mean [Left Arm] Blood Pressure Position Blood Pressure Position [Left Arm] Pulse Oximetry 99 98 99 Oxygen Delivery Method Sepsis Recent Fever Within 48 Hours Sepsis New/Unexplained Change in Mental Status Sepsis Action Taken by Nursing 12/20/21 21:10 12/20/21 21:20 12/20/21 21:30 Temperature Temperature Source Pulse Rate 69 71 65 Pulse Rate [Apical] Pulse Rate from SpO2 Sensor 69 70 65 Respiratory Rate 17 19 17 Respiratory Effort / Characteristics Respiratory Depth Blood Pressure 159/91 H Blood Pressure [Left Arm] Blood Pressure Mean 113 Blood Pressure Mean [Left Arm] Blood Pressure Position Blood Pressure Position [Left Arm] Pulse Oximetry 98 98 98 Oxygen Delivery Method Sepsis Recent Fever Within 48 Hours Sepsis New/Unexplained Change in Mental Status Sepsis Action Taken by Nursing Laboratory Data Result diagrams: 12/20/21 18:00 12/20/21 18:00 Lab Results 12/20/21 12/20/21 12/20/21 Range/Units 18:00 18:00 18:00 WBC 5.44 (4.8-10.8) K/uL RBC 4.43 (4.2-5.4) M/uL Hgb 13.9 (12.0-16.0) g/dL Hct 41.4 (37-47) % MCV 93.5 (80-100) fL MCH 31.4 (25-34) pg MCHC 33.6 (32-36) g/dL RDW Std Deviation 45.4 (36.4-46.3) fL RDW Coeff of Ana 13.1 (11.5-14.5) % Plt Count 287 (130-400) K/uL MPV 9.2 (7.4-10.4) fL Immature Gran % (Auto) 0.2 % Neut % (Auto) 60.5 % Lymph % (Auto) 30.0 % Beauregard % (Auto) 7.4 % Eos % (Auto) 1.5 % Baso % (Auto) 0.4 % Neut # (Auto) 3.30 (1.4-6.5) K/uL Lymph # (Auto) 1.63 (1.2-3.4) K/uL Beauregard # (Auto) 0.40 (0.11-0.59) K/uL Eos # (Auto) 0.08 (0-0.5) K/uL Baso # (Auto) 0.02 (0-0.2) K/uL Immature Gran # (Auto) 0.01 (0.00-0.02) K/uL PT 9.8 (9.0-12.0) Seconds INR 1.0 (0.9-1.1) APTT 26.5 (21.0-31.0) Seconds PTT Ratio 1.0 Sodium 136 (136-145) mmol/L Potassium 3.5 (3.5-5.1) mmol/L Chloride 100 (98-107) mmol/L Carbon Dioxide 28 (21-32) mmol/L Anion Gap 8 (3-11) BUN 10 (6-23) mg/dl Creatinine 0.92 (0.6-1.2) mg/dl Est Cr Clr Drug Dosing 58.9 ml/min Est GFR ( Amer) 75.7 ml/min Est GFR (Non-Af Amer) 65.3 ml/min BUN/Creatinine Ratio 10.9 (10-20) Glucose 93 (70-99(Fasting)) mg/dl Calcium 9.4 (8.5-10.1) mg/dl Magnesium 2.0 (1.7-2.4) mg/dl Total Bilirubin 0.3 (0.2-1.0) mg/dl AST 21 (13-39) U/L ALT 24 (7-52) U/L Alkaline Phosphatase 101 (34-104) U/L Troponin I < 0.03 (0-0.04) ng/ml Total Protein 7.6 (6.0-8.3) gm/dl Albumin 4.8 (3.4-5.0) gm/dl Globulin 2.8 (2.5-4.0) gm/dl Albumin/Globulin Ratio 1.7 (0.9-2) SARS-CoV-2, RNA, NAAT (NEGATIVE) 12/20/21 Range/Units 19:32 WBC (4.8-10.8) K/uL RBC (4.2-5.4) M/uL Hgb (12.0-16.0) g/dL Hct (37-47) % MCV (80-100) fL MCH (25-34) pg MCHC (32-36) g/dL RDW Std Deviation (36.4-46.3) fL RDW Coeff of Ana (11.5-14.5) % Plt Count (130-400) K/uL MPV (7.4-10.4) fL Immature Gran % (Auto) % Neut % (Auto) % Lymph % (Auto) % Beauregard % (Auto) % Eos % (Auto) % Baso % (Auto) % Neut # (Auto) (1.4-6.5) K/uL Lymph # (Auto) (1.2-3.4) K/uL Beauregard # (Auto) (0.11-0.59) K/uL Eos # (Auto) (0-0.5) K/uL Baso # (Auto) (0-0.2) K/uL Immature Gran # (Auto) (0.00-0.02) K/uL PT (9.0-12.0) Seconds INR (0.9-1.1) APTT (21.0-31.0) Seconds PTT Ratio Sodium (136-145) mmol/L Potassium (3.5-5.1) mmol/L Chloride (98-107) mmol/L Carbon Dioxide (21-32) mmol/L Anion Gap (3-11) BUN (6-23) mg/dl Creatinine (0.6-1.2) mg/dl Est Cr Clr Drug Dosing ml/min Est GFR ( Amer) ml/min Est GFR (Non-Af Amer) ml/min BUN/Creatinine Ratio (10-20) Glucose (70-99(Fasting)) mg/dl Calcium (8.5-10.1) mg/dl Magnesium (1.7-2.4) mg/dl Total Bilirubin (0.2-1.0) mg/dl AST (13-39) U/L ALT (7-52) U/L Alkaline Phosphatase (34-104) U/L Troponin I (0-0.04) ng/ml Total Protein (6.0-8.3) gm/dl Albumin (3.4-5.0) gm/dl Globulin (2.5-4.0) gm/dl Albumin/Globulin Ratio (0.9-2) SARS-CoV-2, RNA, NAAT NEGATIVE (NEGATIVE) Administered Medications Sodium Chloride (Nss 1000ml) 1,000 mls @ 50 mls/hr IV .Q20H MILLI Stop: 01/19/22 18:14 Last Admin: 12/20/21 18:31 Dose: 50 mls/hr Documented by: [id number] Lorazepam (Lorazepam 0.5 Mg Tab) 0.5 mg PO TID PRN PRN Reason: Anxiety Stop: 01/19/22 22:29 Last Admin: 12/21/21 00:47 Dose: 0.5 mg Documented by: [id number] Miscellaneous (Estrace Cream - Order Awaiting Action) 1 ea N/A QS MILLI Stop: 01/20/22 00:00 Last Admin: 12/21/21 00:48 Dose: Not Given Documented by: [id number] Miscellaneous (Latanoprost 0.005% - Order Awaiting Action) 1 ea N/A QS MILLI Stop: 01/20/22 00:00 Last Admin: 12/21/21 00:48 Dose: Not Given Documented by: [id number] Discontinued Medications Aspirin (Aspirin Chew 324 Mg) 324 mg PO NOW STA Stop: 12/20/21 21:06 Last Admin: 12/20/21 21:15 Dose: 324 mg Documented by: [id number] Ioversol (Optiray 320 125ml) 121 ml IV ONCE ONE Stop: 12/20/21 19:23 Last Admin: 12/20/21 19:22 Dose: 121 ml Documented by: [id number] Lisinopril (Lisinopril 5 Mg Tab) 10 mg PO NOW ONE Stop: 12/20/21 18:40 Last Admin: 12/20/21 19:17 Dose: 10 mg Documented by: [id number] Verapamil HCl (Verapamil Hcl 120 Mg Tabcr) 240 mg PO NOW STA Stop: 12/20/21 18:40 Last Admin: 12/20/21 19:17 Dose: 240 mg Documented by: [id number] Imaging Data Radiologist's Impression: Chest X-Ray 12/20/21 18:07 XR chest 1V portable CLINICAL HISTORY: Stroke Like Symptoms. Evaluate cardiopulmonary status COMPARISON STUDY: 10/24/2021 TECHNIQUE: 1 view of the chest FINDINGS: Single frontal view of the chest demonstrates the cardiomediastinal silhouette to be within normal limits. The lungs are clear of alveolar opacities. There is no evidence for pleural effusion. There is no evidence for vascular congestion. There is no acute osseous pathology. IMPRESSION: No acute cardiopulmonary disease. ACT 112: Negative or not required by law. Electronically signed by: Rakesh Hernandez M.D. 12/20/2021 6:[address] 12/20/21 18:07 CT head/brain wo con CLINICAL HISTORY: Stroke Like Symptoms, right extremity numbness COMPARISON STUDY: 10/22/2021 CT DOSE: TECHNIQUE: Standard CT of the Brain was performed without IV contrast. A dose lowering technique was utilized adhering to the principles of ALARA. FINDINGS: Extraaxial space: There is no evidence for subdural hematoma. There are no extra-axial fluid collections. Ventricles and cisterns: The ventricles are normal in size and configuration. There is no evidence for midline shift or mass effect. Parenchyma: There is no subarachnoid or intraparenchymal hemorrhage. There is no evidence for an acute infarct or cerebral edema. There is mild cerebral cortical atrophy and decreased attenuation in the periventricular white matter representing remote small vessel disease. There are no gross mass lesions. Osseous structures: There is no evidence for an acute fracture. The visualized paranasal sinuses are clear. The mastoid air cells are clear bilaterally. Soft tissues: There is no evidence for focal soft tissue swelling. IMPRESSION: No acute intracerebral pathology. Cerebral cortical atrophy and remote small vessel disease are again seen. ACT 112: Negative or not required by law. Electronically signed by: Rakesh Hernandez M.D. 12/20/2021 7:58 PM Head CTA 12/20/21 18:07 CT angio head w con CLINICAL HISTORY: Stroke Like Symptoms . Right extremity weakness COMPARISON STUDY: CT brain without contrast from 12/20/2021 CT DOSE: TECHNIQUE: CT Angio of the brain was performed.followed by image post processing with coronal, and sagittal MIP reformats. Contrast Volume: Optiray 320, 121 ml FINDINGS: Vascular findings: There is normal enhancement within the internal carotid arteries bilaterally. There is normal enhancement noted within the anterior, middle and posterior cerebral arteries. Nonvascular findings: There is homogeneous attenuation of the brain parenchyma bilaterally. There is no evidence for an acute infarct or cerebral edema. IMPRESSION: Negative CT angiogram of the brain with contrast. ACT 112: Negative or not required by law. Electronically signed by: Rakesh Hernandez M.D. 12/20/2021 8:29 PM Neck CTA 12/20/21 18:07 CT angio neck with con CLINICAL HISTORY: Stroke Like Symptoms . Right-sided weakness COMPARISON STUDY: 10/22/2021 CT DOSE: 1048.24 mGy.cm TECHNIQUE: CT Angio of the neck was performed.followed by image post processing with coronal, and sagittal MIP reformats.. Stenosis assessment by NASCET criteria. Contrast Volume: Optiray 320, 120 ml FINDINGS: Vascular findings: Right common carotid artery: Patent without significant stenosis. Right internal carotid artery: Patent without significant stenosis.There is again mild atherosclerotic calcification at its origin. Right vertebral artery: Patent without significant stenosis. Right vertebral artery is again dominant when compared to the left. Left common carotid artery: Patent without significant stenosis. Left internal carotid artery: Patent without significant stenosis.There is again mild atherosclerotic calcification at its origin. Left vertebral artery: Patent without significant stenosis. There is also atherosclerotic calcification narrowing of the origin of the left subclavian artery. Nonvascular findings: The parotid and submandibular salivary glands appear normal. There is no enlarged cervical adenopathy noted. The airway appears patent. The thyroid gland appears within normal limits. The lung apices appear within normal limits. Impression: Essentially negative CT angiogram of the neck with contrast. No significant interval change from the previous study. ACT 112: Negative or not required by law. Electronically signed by: Rakesh Hernandez M.D. 12/20/2021 8:37 PM Discharge Plan Visit Data Chief Complaint: TIA Symptoms Stated Complaint: TIA Symptoms ED Provider: Austin Marin Discharge Problem: Stroke-like symptoms, Right sided numbness, Acute right-sided weakness, Fall Patient Disposition: Admitted As Inpatient Discharge Instructions Interventions: ED Discharge Assessment Last Done: 12/20/21 22:06
[2021-12-20] MEDS ORDERED: OPTIRAY 320 125ml IV ONE (19:22)
--- NOTE | 2021-12-20 20:00 | CT Scan Report ---
CT head/brain wo con CLINICAL HISTORY: Stroke Like Symptoms, right extremity numbness COMPARISON STUDY: 10/22/2021 CT DOSE: TECHNIQUE: Standard CT of the Brain was performed without IV contrast. A dose lowering technique was utilized adhering to the principles of ALARA. FINDINGS: Extraaxial space: There is no evidence for subdural hematoma. There are no extra-axial fluid collecti ons. Ventricles and cisterns: The ventricles are normal in size and configuration. There is no evidence f or midline shift or mass effect. Parenchyma: There is no subarachnoid or intraparenchymal hemorrhage. There is no evidence for an acu te infarct or cerebral edema. There is mild cerebral cortical atrophy and decreased attenuation in th e periventricular white matter representing remote small vessel disease. There are no gross mass lesi ons. Osseous structures: There is no evidence for an acute fracture. The visualized paranasal sinuses are clear. The mastoid air cells are clear bilaterally. Soft tissues: There is no evidence for focal soft tissue swelling. IMPRESSION: No acute intracerebral pathology. Cerebral cortical atrophy and remote small vessel disea se are again seen. ACT 112: Negative or not required by law. Electronically signed by: Rakesh Hernandez M.D. 12/20/2021 7:58 PM
--- NOTE | 2021-12-20 20:30 | CT Scan Report ---
CT angio head w con CLINICAL HISTORY: Stroke Like Symptoms . Right extremity weakness COMPARISON STUDY: CT brain without contrast from 12/20/2021 CT DOSE: TECHNIQUE: CT Angio of the brain was performed.followed by image post processing with coronal, and s agittal MIP reformats. Contrast Volume: Optiray 320, 121 ml FINDINGS: Vascular findings: There is normal enhancement within the internal carotid arteries bilaterally. The re is normal enhancement noted within the anterior, middle and posterior cerebral arteries. Nonvascular findings: There is homogeneous attenuation of the brain parenchyma bilaterally. There is no evidence for an acute infarct or cerebral edema. IMPRESSION: Negative CT angiogram of the brain with contrast. ACT 112: Negative or not required by law. Electronically signed by: Rakesh Hernandez M.D. 12/20/2021 8:29 PM
--- NOTE | 2021-12-20 20:39 | CT Scan Report ---
CT angio neck with con CLINICAL HISTORY: Stroke Like Symptoms . Right-sided weakness COMPARISON STUDY: 10/22/2021 CT DOSE: 1048.24 mGy.cm TECHNIQUE: CT Angio of the neck was performed.followed by image post processing with coronal, and sa gittal MIP reformats.. Stenosis assessment by NASCET criteria. Contrast Volume: Optiray 320, 120 ml FINDINGS: Vascular findings: Right common carotid artery: Patent without significant stenosis. Right internal carotid artery: Patent without significant stenosis.There is again mild atheroscleroti c calcification at its origin. Right vertebral artery: Patent without significant stenosis. Right vertebral artery is again dominant when compared to the left. Left common carotid artery: Patent without significant stenosis. Left internal carotid artery: Patent without significant stenosis.There is again mild atherosclerotic calcification at its origin. Left vertebral artery: Patent without significant stenosis. There is also atherosclerotic calcification narrowing of the origin of the left subclavian artery. Nonvascular findings: The parotid and submandibular salivary glands appear normal. There is no enlarged cervical adenopathy noted. The airway appears patent. The thyroid gland appears within normal limits. The lung apices ap pear within normal limits. Impression: Essentially negative CT angiogram of the neck with contrast. No significant interval rajni nge from the previous study. ACT 112: Negative or not required by law. Electronically signed by: Rakesh Hernandez M.D. 12/20/2021 8:37 PM
[2021-12-20] MEDS ORDERED: ASPIRIN CHEW 324 MG PO STA (21:05)
[2021-12-20] MEDS ORDERED: ONDANSETRON INJ 2 MG/ML 2 ML VIAL IV PRN (21:34)
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
[2021-12-20] MEDS ORDERED: ONDANSETRON 4 MG OD TAB PO PRN (22:30)
[2021-12-20] MEDS ORDERED: FLUTICASONE PROPIONATE NA SPR 16 GM BTL PRN (22:30)
[2021-12-20] MEDS ORDERED: MECLIZINE HCL 25 MG TAB PO PRN (22:38)
[2021-12-20] MEDS ORDERED: BUTALBITAL/ACETAMIN/CAFFEINE TAB PO PRN (22:49)
[2021-12-21] MEDS: LORazepam 0.5 MG TAB PO PRN ×2 (00:47→11:27)
[2021-12-21] MEDS ORDERED: LEVOTHYROXINE SODIUM 50 MCG TABLET PO SCH (06:30)
--- NOTE | 2021-12-21 06:36 | Electrocardiogram Report ---
Test Reason : Blood Pressure : / mmHG Vent. Rate : 073 BPM Atrial Rate : 073 BPM P-R Int : 166 ms QRS Dur : 082 ms QT Int : 406 ms P-R-T Axes : 049 021 070 degrees QTc Int : 447 ms Poor data quality, interpretation may be adversely affected Sinus rhythm with occasional Premature ventricular complexes and Premature atrial complexes Possible Left atrial enlargement Nonspecific ST and T wave abnormality Abnormal ECG When compared with ECG of 28-OCT-2021 10:00, Premature ventricular complexes are now Present Premature atrial complexes are now Present Nonspecific T wave abnormality is now present in anterior leads Confirmed by Alfonso Ann ([id number]) on 12/21/2021 6:36:11 AM Referred By: REFERRED SELF Confirmed By:Alfonso Ann
[2021-12-21 07:06] LABS: BUN Creatinine Ratio 13.6 (10-20); Chol HDL Ratio 6.4 (0-5); Creatinine Clr Calc Pharmacy 60.2 ml/min; Est GFR (African American) 79.9 ml/min; Est GFR (Non-African American) 68.9 ml/min; Potassium 3.9 mmol/L (3.5-5.1)
[2021-12-21 07:59] LABS: Estimated Average Glucose 126 mg/dl
[2021-12-21] MEDS: ACETAMINOPHEN 325 MG TAB PO PRN ×2 (08:17→13:13)
[2021-12-21] MEDS: busPIRone 5 MG TAB PO SCH ×2 (08:18→13:13)
[2021-12-21] MEDS ORDERED: FUROSEMIDE 20 MG TAB PO SCH (09:00)
[2021-12-21] MEDS ORDERED: VENLAFAXINE HCL XR 75 MG CAPXR PO SCH (09:00)
[2021-12-21] MEDS ORDERED: EZETIMIBE 10 MG TABLET PO SCH (09:00)
[2021-12-21] MEDS ORDERED: POTASSIUM CHLORIDE 10 MEQ TABCR PO SCH (09:00)
[2021-12-21] MEDS ORDERED: FAMOTIDINE 20 MG TAB PO SCH (09:00)
[2021-12-21] MEDS ORDERED: CYANOCOBALAMIN (B-12) 500 MCG TABLET PO SCH (09:00)
[2021-12-21] MEDS ORDERED: FEXOFENADINE HCL 180 MG TAB PO SCH (09:00)
[2021-12-21] MEDS ORDERED: PANTOprazole 40 MG TAB PO SCH (09:00)
[2021-12-21] MEDS ORDERED: lisinopril 10 MG TAB PO SCH (09:00)
[2021-12-21 11:55] VITALS: TEMP 98.1
--- NOTE | 2021-12-21 13:55 | Magnetic Resonance Report ---
MRI OF THE BRAIN WITHOUT CONTRAST CLINICAL HISTORY: RUE/RLE sensory abn, TIA COMPARISON STUDY: MRI of the brain October 22, 2021. Head CT and CTA of the head December 20, 2021. TECHNIQUE: Utilizing a 1.5 Cindy magnet and dedicated coil, multiplanar, multiecho imaging of the bra in was performed without IV contrast. FINDINGS: There are no foci of restricted diffusion to suggest acute infarct. No acute intracranial h emorrhage, midline shift or mass effect is present. Ventricular system is unremarkable. Basal cistern s are patent. There are no extra-axial collections. No intracranial masses are identified on this une nhanced exam. Moderate white matter T2 hyperintense foci are unchanged as MRI October 22, 2021. These have mildly increased since MRI of May 03, 2020. Calvarial signal is normal. Orbits are unremarkabl e on this unenhanced exam. No evidence for sinusitis. There is no mastoid fluid. Old right basal gang reina infarct is unchanged. T2 hyperintensity within the evan is unchanged. IMPRESSION: 1. No acute intracranial findings. No evidence for acute infarct. 2. Moderate white matter T2 hyperintense foci. These are unchanged since MRI November 01, 2021 but in creased since MRI of May 03, 2020. These statistically reflect small vessel disease but are indeterm inate. ACT 112: Negative or not required by law. Electronically signed by: Nathaniel Hamilton M.D. 12/21/2021 1:54 PM
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
[2021-12-21 15:49] VITALS: PULSE 67; O2SAT 98
[2021-12-21 16:18] VITALS: BP 101/63
[2021-12-21] MEDS ORDERED: VERAPAMIL HCL 240 MG TABCR PO SCH (21:00)
[2021-12-21] MEDS ORDERED: valACYclovir HCL 500 MG TABLET PO SCH (21:00)
[2021-12-21] MEDS ORDERED: ASPIRIN 81 MG ECTAB PO SCH (21:00)
[2021-12-21] MEDS ORDERED: TAMSULOSIN HCL 0.4 MG CAP PO SCH (21:00)
[2021-12-21] MEDS ORDERED: AMITRIPTYLINE HCL 50 MG TAB PO SCH (21:00)
[2021-12-23 06:14] LABS: B2 Glycoprotein IgG <2.0 U/mL (<20.0); B2 Glycoprotein IgM <2.0 U/mL (<20.0); Protein S Functional(Activity) 90 % (60-140)
[2021-12-25 00:16] LABS: Anti Cardiolipin Ab IgG <2.0 GPL-U/mL; Anti Cardiolipin Ab IgM <2.0 MPL-U/mL; Anti-Thrombin III Activity 118 % normal (80-135); PTT LA Screen 33 sec (<=40)
[2021-12-26 01:16] LABS: Factor 5 Mutation NEGATIVE
--- NOTE | 2021-12-28 19:40 | Billing Data ---
Date of Service December 28, 2021 Coding Level of Care Code INT OBSERVATION CARE 70M LVL 3
== END 2021-12-21 16:42 | disposition home or self-care (01) ==
LOC: ED 17:49 → 2S 17:49 → SUATTDRO 21:34 → 2S 22:06

== ENCOUNTER 2023-05-09 16:30 | Observation (INO) ==
--- NOTE | 2023-05-09 18:33 | XRay Report ---
XR chest 1V portable CLINICAL HISTORY: trauma TECHNIQUE: Single frontal radiograph of the chest was obtained. Comparison: Comparison is made to chest radiograph 12/20/2021 FINDINGS: No lines and tubes are seen. The cardiomediastinal silhouette is normal. The lungs are clear. No evid ence of pleural effusion or pneumothorax. IMPRESSION: No acute chest disease. ACT 112: Negative or not required by law. Electronically signed by: Diogenes Kurtz M.D. 05/09/2023 6:31 PM
--- NOTE | 2023-05-09 18:39 | XRay Report ---
XR pelvis 1-2V routine CLINICAL HISTORY: trauma TECHNIQUE: A single frontal view of the pelvis was obtained. Comparison: None available at the time of this dictation. FINDINGS: There is no evidence of an acute fracture. Degenerative changes are seen in the hip joints and lumbar spine. No soft tissue abnormality is seen. IMPRESSION: No evidence of acute osseous injury. ACT 112: Negative or not required by law. Electronically signed by: Diogenes Kurtz M.D. 05/09/2023 6:37 PM
[2023-05-09 18:54] LABS: Hematocrit (blood only) 30.8 % (37.0-47.0); Hemoglobin 10.8 g/dl (12.0-16.0); Mean Corpuscular Hemoglobin 30.9 pg (25.0-34.0); Mean Corpuscular Hgb Conc 35.1 g/dL (32.0-36.0); Mean Corpuscular Volume 88.3 fL (80.0-100.0); Mean Platelet Volume 8.9 fL (9.4-12.4); Platelet Count 147 K/uL (130-400); RDW Coefficient of Variation 13.3 % (11.5-14.5); RDW Standard Deviation 43.1 fL (36.4-46.3); Red Blood Count 3.49 M/uL (4.20-5.40); White Blood Count 1.96 K/ul (4.8-10.8)
[2023-05-09 19:12] LABS: Albumin Globulin Ratio 1.5 (0.9-2); Albumin Level 4.1 gm/dl (3.4-5.0); BUN Creatinine Ratio 18.6 (10-20); Bilirubin,Total 0.5 mg/dl (0.2-1.0); Calcium 8.6 mg/dl (8.6-10.3); Creatinine Clr Calc Pharmacy 51.2 ml/min; Est GFR (African American) 66.4 ml/min; Est GFR (Non-African American) 57.3 ml/min; Globulin 2.7 gm/dl (2.5-4.0); Magnesium 1.9 mg/dl (1.7-2.4); Potassium 3.7 mmol/L (3.5-5.1); Total Protein 6.8 gm/dl (6.0-8.3)
[2023-05-09 19:18] LABS: Basophils # (auto) 0.02 K/uL (0-0.2); Eosinophils # (auto) 0.04 K/uL (0-0.50); Immature Granulocytes # (auto) 0.01 K/uL (0.01-0.20); Immature Granulocytes % (auto) 0.5 %; Lymphocytes # (auto) 0.57 K/uL (1.2-3.4); Lymphocytes % (auto) 29.1 %; Monocytes # (auto) 0.23 K/uL (0.11-0.59); Monocytes % (auto) 11.7 %; Neutrophils # (auto) 1.09 K/uL (1.40-6.50); Neutrophils % (auto) 55.7 %
[2023-05-09 19:19] LABS: Troponin I High Sensitivity 3.9 pg/ml (0-14)
--- NOTE | 2023-05-09 19:30 | CT Scan Report ---
Exam(s): CT HEAD Without Contrast EXAM: CT Head Without Intravenous Contrast CLINICAL HISTORY: Reason for exam: trauma. TECHNIQUE: Axial computed tomography images of the head/brain without intravenous contrast. CTDI is 37.87 mGy and DLP is 546.36 mGy-cm. Automated exposure control was utilized for the study. A dose lowering technique was utilized adhering to the principles of ALARA. COMPARISON: MRI brain on 08/02/2022. CT head on 12/20/2021. FINDINGS: Brain: No acute infarct or hemorrhage identified. No extra-axial fluid collection. No mass effect or midline shift. Scattered areas of hypoattenuation in the supratentorial white matter likely represent chronic small vessel ischemic changes. Ventricles and sulci: Prominence of the ventricles and sulci is likely secondary to cerebral volume loss. Bones: Normal. No bony lesion or acute fracture. Subcutaneous tissues: Normal. Sinuses: Normal. No air-fluid levels or mucosal thickening. Mastoid air cells: Normal. Orbits: Grossly unremarkable. Other: Atherosclerotic calcifications in the intracranial vasculature. IMPRESSION: 1. No acute intracranial abnormality. 2. Chronic small vessel ischemic changes and cerebral volume loss. Electronically signed by: Frank Nieves M.D. 05/09/23 19:29 PM
--- NOTE | 2023-05-09 19:31 | CT Scan Report ---
Exam(s): CT C SPINE EXAM: CT Cervical Spine Without Intravenous Contrast CLINICAL HISTORY: Reason for exam: trauma. TECHNIQUE: Axial computed tomography images of the cervical spine without intravenous contrast. CTDI is 20.7 mGy and DLP is 447.85 mGy-cm. Automated exposure control was utilized for the study. A dose lowering technique was utilized adhering to the principles of ALARA. COMPARISON: None FINDINGS: Bones: Normal alignment. No acute fracture or bony lesion. Disc spaces: No subluxation. No spinal canal stenosis or neuroforaminal stenosis. Soft tissues: Normal. Other: Atherosclerotic changes of the vasculature. IMPRESSION: No acute traumatic abnormality. Electronically signed by: Frank Nieves M.D. 05/09/23 19:30 PM
--- NOTE | 2023-05-09 19:37 | Emergency Department Note ---
Impression & Plan Weakness, Parkinsonism, CHI (closed head injury), Falls, Hyponatremia, Anemia, Leukopenia, Abnormal LFTs ED Provider Note ED Provider Note NAME: JUAN LUIS VELASQUEZ AGE:67 SEX: Female : 1955 ARRIVES VIA: Private vehicle INFORMANT: Patient ED PROVIDER(s): Bryanna Calvin DO CHIEF COMPLAINT: Frequent falls HPI: This is a 67-year-old female presents emergency department due to concern for multiple falls over the course of the weekend. Patient states she has difficulty walking and becomes suddenly weak and will fall. She states this happened multiple times and was concerned as she lives by herself. Patient sta avery she does have a prior history of a stroke as well as Parkinson's disease. She follows with Dr. Neely of neurology. Patient also takes a blood thinner. Patient states she did see Dr. Neely recently and he wanted to repeat an MRI on her. She states she did call the office today due to her concern for all the falls and was referred here for additional evaluation and likely admission with MRI. Patient denies any recent fevers, chills, or illness. No recent change in any medications. Patient states she did hit her head 3 times over the course of the numerous falls this weekend. She denies any paresthesias. Denies any other concern for focal injury. PAST MEDICAL HISTORY:See Below PAST SURGICAL HISTORY:See Below FAMILY HISTORY:See Below SOCIAL HISTORY:See Below HOME MEDICATIONS:See Below ALLERGIES:See Below VITALS:See Below PHYSICAL EXAMINATION: GENERAL: alert, well appearing, well nourished, no distress, non-toxic HEAD: nc/at, no evidence of facial trauma, no christensen signs, no raccoon eyes EYE EXAM: normal conjunctiva, PERRL and EOM's grossly intact OROPHARYNX: no exudate, no erythema, lips, buccal mucosa, and tongue normal and mucous membranes are moist NECK: supple, no nuchal rigidity, no adenopathy, non-tender LUNGS: Clear to auscultation. Normal chest wall mechanics, no w/r/r HEART: no murmurs, S1 normal and S2 normal CHEST WALL: No crepitus, nontender with palpation ABDOMEN: abdomen soft, non-tender, normo-active bowel sounds, no masses, no rebound or guarding. BACK: Back is symmetrical on inspection and there is no deformity, no midline tenderness, no CVA tenderness. SKIN: no rashes, petechiae, orbruising UPPER EXTREMITIES: upper extremities are grossly normal. FROM, nml pulses b/l. No evidence of trauma or deformities LOWER EXTREMITIES: No pitting edema. FROM, nml pulses b/l. No evidence of trauma or deformities NEURO EXAM: Normal sensorium, cranial nerves II-XII grossly intact, normal speech, no facial droop,nogross weakness of arms, no gross weakness of legs. Gross sensation intact. No ataxia. Tremors noted in bilateral upper extremities. Vital Signs: reviewed and remarkable Differential Diagnosis: Closed head injury, worsening Parkinson, TIA/CVA, ICH, electrolyte abnormality, dehydration, UTI, as well as others were considered MEDICAL DECISION MAKING: This is a 67-year-old female presents emergency department due to multiple falls over the weekend. Patient afebrile and vital signs stable. No obvious evidence of trauma on exam. Labs drawn and sent, IV established, EKG and x-rays performed at bedside and interpreted by me and patient monitored on telemetry. She was sent for additional CT imaging as a precaution which was reassuring. Patient noted to have significant hyponatremia new for her on review of EMR. This may be contributing to some of her falls on top of her history of Parkinson's. Patient also noted to have leukopenia and anemia which is new compared to prior. She denies any prior history of anemia, denied any black or bloody stools. After noting this as well as mild elevation of her LFTs, tickbo rne labs were sent as a precaution. Due to concern for her hyponatremia as well as the recurrent falls and her safety as she lives alone, case discussed with the hospitalist for additional evaluation and management. Consultation(s): [] ER Treatment Provided: See below Diagnostics Interpreted By Me: -ECG: Sinus bradycardia 51, normal axis, normal intervals, no acute ST/T wave changes -Cardiac Monitoring: An order was placed for continuous cardiac monitoring. The monitor shows a rate of 56 with sinus bradycardia rhythm. -Laboratory studies: As stated above and show below. -Imaging studies: X-ray Chest: A single view study of the chest was reviewed and was negative for cardiomegaly, focal infiltrate, effusion, pulmonary edema, or wide mediastinum. No evidence of fracture or pneumothorax. X-ray pelvis: No acute fracture or dislocation Triage Nursing Note Reviewed Prior/Outside Records Reviewed Procedures: [] Critical Care: [] Past Med/Surg History Medical History Achalasia, esophageal Arthralgia of multiple sites Cervical radiculopathy Depression with anxiety Esophageal dysmotility GERD (gastroesophageal reflux disease) Glaucoma History of anesthesia reaction unsure of the medication drug; reports getting a locked jaw after a surgery (~) (unsure if it was vein stripping surgery or hysterectomy) History of COVID-19 Aug 17, 2020. no current issues History of shingles takes valtrex daily. no active shingles currently Hx of venous thrombosis and embolism (09/20/11) unsure of exact date. related to HRT. placed on anticoagulant since. Hypertension Hypothyroidism Irritable bowel syndrome (09/20/11) Memory impairment mild - alert and oriented x3 Nausea and vomiting after administration of anesthetic agent Old myocardial infarct (09/20/11) no stents -- no current cardiology, follows with pcp On anticoagulant therapy Osteoarthritis of hands, bilateral Osteoarthritis of right knee Palpitations "irreegular heart beat" Parkinson disease Peripheral edema Restless legs syndrome (09/20/11) Stroke migraine stroke (unsure of date -- within the last 7 years (since 2014) -> deficits include mild/minor dementia, finding right words, memory loss, right arm and leg weakness. follows with [facility]. Stroke October 22, 2021 -> treated at [facility]. right side weakness. December 21, 2021 Stroke-like symptoms Tear of medial meniscus of right knee Transient ischemic attack (TIA) August 2021. Vertigo Surgical History H/O ovarian cystectomy H/O rectocele repair cystocele and rectocele H/O varicose vein ligation and stripping History of appendectomy History of cardiac cath SYLVIA Salazar. no stents History of colonoscopy History of esophagogastroduodenoscopy (EGD) History of laparoscopy Hx of cataract extraction RT. S/P total abdominal hysterectomy with BSO Family History Mother Myocardial infarction Other No family history of adverse response to anesthesia Denies family history of Ovarian cancer Prostate cancer Breast cancer Colorectal cancer Social History Smoking Status: Never smoker Second Hand Exposure: No; Do You Dip or Chew Tobacco: No; Hx Alcohol Use: No Hx Substance Use: No Preferred Language: Mongolian Communication Ability: Effective Visual Impairment: No Limitations Skidway Worker Required: No Beliefs That Will Affect Care: None marital status: / Current Living Situation: Alone current occupational status: employed 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 How many Children do You have: 2 Feels Safe at Home: Yes Childhood Exposure to Second-Hand Smoke: No Diet: regular caffeine: Yes Dental Care, Regularly: No Physical Activity Frequency: Daily Seatbelt Use: always Sunscreen Use: Yes (sometimes) Assistive Devices: Cane, Glasses and Walker Allergies Allergies Allergy/AdvReac Type Severity Reaction Status Date / Time methylprednisolone AdvReac Severe Psychosis Verified 05/09/23 19:32 ciprofloxacin [From Cipro] AdvReac Intermediate nausea Verified 05/09/23 19:32 erythromycin base AdvReac Intermediate VOMITTING Verified 05/09/23 19:32 Macrolide Antibiotics AdvReac Intermediate STOMACH Verified 05/09/23 19:32 UPSET Home Meds Home Medications Medication Instructions Recorded Confirmed cyanocobalamin (vitamin B-12) 1,000 mcg sublingual QAM 05/03/20 05/09/23 1,000 mcg sublingual lozenge latanoprost 0.005 % eye drops 1 drp ophthalmic (eye) UD 10/22/21 05/09/23 diclofenac sodium 1 % topical gel 2 g topical QID PRN Pain 05/09/23 05/09/23 (Arthritis Pain (diclofenac)) venlafaxine 75 mg capsule,extended 75 mg PO QAM 05/09/23 05/09/23 release 24 hr Previous Rx's Medication Instructions Recorded fexofenadine 180 mg tablet 180 mg PO QAM #30 tabs 05/25/21 (Gaviota Allergy) compression stockings #1 ea 05/13/22 wheeled walker with seat #1 ea 07/22/22 huybvteznh-rjenknyyqycgh-xeiqqwoj 1 - 2 tab PO UD PRN pain #20 tabs 08/13/22 50 mg-325 mg-40 mg tablet ketoconazole 2 % topical cream 1 applic topical BID #30 grams 01/18/23 levothyroxine 50 mcg tablet 50 mcg PO QAM #30 tabs 02/25/23 lisinopril 10 mg tablet 10 mg PO QAM #90 tabs 02/25/23 meclizine 25 mg tablet 25 mg PO TID PRN motion sickness 02/25/23 #30 tabs pantoprazole 40 mg tablet,delayed 40 mg PO QAM #30 tabs 02/25/23 release potassium chloride 10 mEq 10 meq PO QAM #30 tabs 02/25/23 tablet,extended release (Klor-Con) tamsulosin 0.4 mg capsule 0.4 mg PO HS #30 caps 02/25/23 valacyclovir 500 mg tablet 500 mg PO HS #90 tabs 03/08/23 amitriptyline 50 mg tablet 50 mg PO HS #30 tabs 04/21/23 buspirone 15 mg tablet 15 mg PO .COMPLEX 90 days #90 tabs 04/21/23 clopidogrel 75 mg tablet (Plavix) 75 mg PO QAM #30 tabs 04/21/23 furosemide 20 mg tablet 20 mg PO QAM #30 tabs 04/21/23 venlafaxine 150 mg 150 mg PO QAM #90 caps 04/21/23 capsule,extended release 24 hr verapamil 240 mg 24 hr 240 mg PO HS 30 days #30 caps 04/21/23 capsule,extended release clonazepam 0.5 mg tablet 0.5 mg PO TID #90 tabs 04/28/23 fluticasone propionate 50 1 spray intranasal QAM PRN Allergy 05/02/23 mcg/actuation nasal Symptoms #16 grams spray,suspension Results & Data (ED) Vital Signs Vital Signs - 24 hr 05/09/23 16:40 05/09/23 18:50 05/09/23 19:27 Temperature 36.8 C Temperature Source Oral Pulse Rate 57 L 48 L Pulse Rate [Bilateral] 48 L Respiratory Rate 20 18 Respiratory Effort / Characteristics Non-Labored Spontaneous Respiratory Depth Normal Respiratory Pattern Regular Blood Pressure 101/65 Blood Pressure Mean 77 Pulse Oximetry 98 98 Oxygen Delivery Method Room Air Room Air Sepsis Recent Fever Within 48 Hours No Sepsis New/Unexplained Change in Mental Status N/A Sepsis Action Taken by Nursing No Action Required 05/09/23 23:27 05/09/23 22:57 Temperature Temperature Source Pulse Rate 55 L Pulse Rate [Bilateral] Respiratory Rate Respiratory Effort / Characteristics Respiratory Depth Respiratory Pattern Blood Pressure Blood Pressure Mean Pulse Oximetry Oxygen Delivery Method Room Air Sepsis Recent Fever Within 48 Hours Sepsis New/Unexplained Change in Mental Status Sepsis Action Taken by Nursing Laboratory Data 05/09/23 18:34 05/09/23 18:34 Lab Results 05/09/23 05/09/23 05/09/23 Range/Units 18:34 18:34 18:34 WBC 1.96 L (4.8-10.8) K/ul RBC 3.49 L (4.20-5.40) M/uL Hgb 10.8 L (12.0-16.0) g/dl Hct 30.8 L (37.0-47.0) % MCV 88.3 (80.0-100.0) fL MCH 30.9 (25.0-34.0) pg MCHC 35.1 (32.0-36.0) g/dL RDW Std Deviation 43.1 (36.4-46.3) fL RDW Coeff of Ana 13.3 (11.5-14.5) % Plt Count 147 (130-400) K/uL MPV 8.9 L (9.4-12.4) fL Immature Gran % (Auto) 0.5 % Neut % (Auto) 55.7 % Lymph % (Auto) 29.1 % Wise % (Auto) 11.7 % Eos % (Auto) 2.0 % Baso % (Auto) 1.0 % Neut # (Auto) 1.09 L (1.40-6.50) K/uL Lymph # (Auto) 0.57 L (1.2-3.4) K/uL Wise # (Auto) 0.23 (0.11-0.59) K/uL Eos # (Auto) 0.04 (0-0.50) K/uL Baso # (Auto) 0.02 (0-0.2) K/uL Immature Gran # (Auto) 0.01 (0.01-0.20) K/uL Sodium 123 L (136-145) mmol/L Potassium 3.7 (3.5-5.1) mmol/L Chloride 92 L (98-107) mmol/L Carbon Dioxide 24 (21-32) mmol/L Anion Gap 7 (3-11) BUN 19 (6-23) mg/dl Creatinine 1.02 (0.6-1.2) mg/dl Est Cr Clr Drug Dosing 51.2 ml/min Est GFR ( Amer) 66.4 ml/min Est GFR (Non-Af Amer) 57.3 ml/min BUN/Creatinine Ratio 18.6 (10-20) Glucose 97 (70-99(Fasting)) mg/dl Calcium 8.6 (8.6-10.3) mg/dl Magnesium 1.9 (1.7-2.4) mg/dl Total Bilirubin 0.5 (0.2-1.0) mg/dl AST 99 H (13-39) U/L ALT 134 H (7-52) U/L Alkaline Phosphatase 120 H (34-104) U/L Troponin I High Sens 3.9 (0-14) pg/ml Total Protein 6.8 (6.0-8.3) gm/dl Albumin 4.1 (3.4-5.0) gm/dl Globulin 2.7 (2.5-4.0) gm/dl Albumin/Globulin Ratio 1.5 (0.9-2) Lipase 8 L (11-82) U/L TSH 3.654 (0.300-4.500) uIu/ml Urine Color Urine Appearance (Clear) Urine pH (4.5-7.5) Ur Specific [place] (1.000-1.030) Urine Protein (Negative) Urine Glucose (UA) (Negative) Urine Ketones (Negative) Urine Blood (Negative) Urine Nitrite (Negative) Urine Bilirubin (Negative) Urine Urobilinogen (Negative) Ur Leukocyte Esterase (Negative) Adenovirus (PCR) (NotDetected) Anaplasma Smear B. pertussis DNA (PCR) (NotDetected) B.parapertussis DNA PCR (NotDetected) Lyme Disease IgG Ab (Negative) Lyme Disease IgM Ab (Negative) C. pneumoniae DNA (PCR) (NotDetected) Coronavirus OC43 (PCR) (NotDetected) Coronavirus HKU1 (PCR) (NotDetected) Coronavirus 229E (PCR) (NotDetected) SARS-CoV-2 (PCR) (NotDetected) Coronavirus NL63 (PCR) (NotDetected) Human Metapneumovir PCR (NotDetected) Influenza Type A (PCR) (NotDetected) Influenza Type B (PCR) (NotDetected) M. pneumoniae (PCR) (NotDetected) Parainfluenza 1 (PCR) (NotDetected) Parainfluenza 2 (PCR) (NotDetected) Parainfluenza 3 (PCR) (NotDetected) Parainfluenza 4 (PCR) (NotDetected) RSV (PCR) (NotDetected) Entero/Rhino (PCR) (NotDetected) 05/09/23 05/09/23 05/09/23 Range/Units 18:34 18:34 20:22 WBC (4.8-10.8) K/ul RBC (4.20-5.40) M/uL Hgb (12.0-16.0) g/dl Hct (37.0-47.0) % MCV (80.0-100.0) fL MCH (25.0-34.0) pg MCHC (32.0-36.0) g/dL RDW Std Deviation (36.4-46.3) fL RDW Coeff of Ana (11.5-14.5) % Plt Count (130-400) K/uL MPV (9.4-12.4) fL Immature Gran % (Auto) % Neut % (Auto) % Lymph % (Auto) % Wise % (Auto) % Eos % (Auto) % Baso % (Auto) % Neut # (Auto) (1.40-6.50) K/uL Lymph # (Auto) (1.2-3.4) K/uL Wise # (Auto) (0.11-0.59) K/uL Eos # (Auto) (0-0.50) K/uL Baso # (Auto) (0-0.2) K/uL Immature Gran # (Auto) (0.01-0.20) K/uL Sodium (136-145) mmol/L Potassium (3.5-5.1) mmol/L Chloride (98-107) mmol/L Carbon Dioxide (21-32) mmol/L Anion Gap (3-11) BUN (6-23) mg/dl Creatinine (0.6-1.2) mg/dl Est Cr Clr Drug Dosing ml/min Est GFR ( Amer) ml/min Est GFR (Non-Af Amer) ml/min BUN/Creatinine Ratio (10-20) Glucose (70-99(Fasting)) mg/dl Calcium (8.6-10.3) mg/dl Magnesium (1.7-2.4) mg/dl Total Bilirubin (0.2-1.0) mg/dl AST (13-39) U/L ALT (7-52) U/L Alkaline Phosphatase (34-104) U/L Troponin I High Sens (0-14) pg/ml Total Protein (6.0-8.3) gm/dl Albumin (3.4-5.0) gm/dl Globulin (2.5-4.0) gm/dl Albumin/Globulin Ratio (0.9-2) Lipase (11-82) U/L TSH (0.300-4.500) uIu/ml Urine Color Urine Appearance (Clear) Urine pH (4.5-7.5) Ur Specific [place] (1.000-1.030) Urine Protein (Negative) Urine Glucose (UA) (Negative) Urine Ketones (Negative) Urine Blood (Negative) Urine Nitrite (Negative) Urine Bilirubin (Negative) Urine Urobilinogen (Negative) Ur Leukocyte Esterase (Negative) Adenovirus (PCR) Not Detected (NotDetected) Anaplasma Smear See Comment B. pertussis DNA (PCR) Not Detected (NotDetected) B.parapertussis DNA PCR Not Detected (NotDetected) Lyme Disease IgG Ab Negative (Negative) Lyme Disease IgM Ab Negative (Negative) C. pneumoniae DNA (PCR) Not Detected (NotDetected) Coronavirus OC43 (PCR) Not Detected (NotDetected) Coronavirus HKU1 (PCR) Not Detected (NotDetected) Coronavirus 229E (PCR) Not Detected (NotDetected) SARS-CoV-2 (PCR) Not Detected (NotDetected) Coronavirus NL63 (PCR) Not Detected (NotDetected) Human Metapneumovir PCR Not Detected (NotDetected) Influenza Type A (PCR) Not Detected (NotDetected) Influenza Type B (PCR) Not Detected (NotDetected) M. pneumoniae (PCR) Not Detected (NotDetected) Parainfluenza 1 (PCR) Not Detected (NotDetected) Parainfluenza 2 (PCR) Not Detected (NotDetected) Parainfluenza 3 (PCR) Not Detected (NotDetected) Parainfluenza 4 (PCR) Not Detected (NotDetected) RSV (PCR) Not Detected (NotDetected) Entero/Rhino (PCR) Not Detected (NotDetected) 05/09/23 Range/Units 22:25 WBC (4.8-10.8) K/ul RBC (4.20-5.40) M/uL Hgb (12.0-16.0) g/dl Hct (37.0-47.0) % MCV (80.0-100.0) fL MCH (25.0-34.0) pg MCHC (32.0-36.0) g/dL RDW Std Deviation (36.4-46.3) fL RDW Coeff of Ana (11.5-14.5) % Plt Count (130-400) K/uL MPV (9.4-12.4) fL Immature Gran % (Auto) % Neut % (Auto) % Lymph % (Auto) % Wise % (Auto) % Eos % (Auto) % Baso % (Auto) % Neut # (Auto) (1.40-6.50) K/uL Lymph # (Auto) (1.2-3.4) K/uL Wise # (Auto) (0.11-0.59) K/uL Eos # (Auto) (0-0.50) K/uL Baso # (Auto) (0-0.2) K/uL Immature Gran # (Auto) (0.01-0.20) K/uL Sodium (136-145) mmol/L Potassium (3.5-5.1) mmol/L Chloride (98-107) mmol/L Carbon Dioxide (21-32) mmol/L Anion Gap (3-11) BUN (6-23) mg/dl Creatinine (0.6-1.2) mg/dl Est Cr Clr Drug Dosing ml/min Est GFR ( Amer) ml/min Est GFR (Non-Af Amer) ml/min BUN/Creatinine Ratio (10-20) Glucose (70-99(Fasting)) mg/dl Calcium (8.6-10.3) mg/dl Magnesium (1.7-2.4) mg/dl Total Bilirubin (0.2-1.0) mg/dl AST (13-39) U/L ALT (7-52) U/L Alkaline Phosphatase (34-104) U/L Troponin I High Sens (0-14) pg/ml Total Protein (6.0-8.3) gm/dl Albumin (3.4-5.0) gm/dl Globulin (2.5-4.0) gm/dl Albumin/Globulin Ratio (0.9-2) Lipase (11-82) U/L TSH (0.300-4.500) uIu/ml Urine Color Yellow Urine Appearance Clear (Clear) Urine pH 6.5 (4.5-7.5) Ur Specific [place] 1.009 (1.000-1.030) Urine Protein Negative (Negative) Urine Glucose (UA) Negative (Negative) Urine Ketones Negative (Negative) Urine Blood Negative (Negative) Urine Nitrite Negative (Negative) Urine Bilirubin Negative (Negative) Urine Urobilinogen Negative (Negative) Ur Leukocyte Esterase Negative (Negative) Adenovirus (PCR) (NotDetected) Anaplasma Smear B. pertussis DNA (PCR) (NotDetected) B.parapertussis DNA PCR (NotDetected) Lyme Disease IgG Ab (Negative) Lyme Disease IgM Ab (Negative) C. pneumoniae DNA (PCR) (NotDetected) Coronavirus OC43 (PCR) (NotDetected) Coronavirus HKU1 (PCR) (NotDetected) Coronavirus 229E (PCR) (NotDetected) SARS-CoV-2 (PCR) (NotDetected) Coronavirus NL63 (PCR) (NotDetected) Human Metapneumovir PCR (NotDetected) Influenza Type A (PCR) (NotDetected) Influenza Type B (PCR) (NotDetected) M. pneumoniae (PCR) (NotDetected) Parainfluenza 1 (PCR) (NotDetected) Parainfluenza 2 (PCR) (NotDetected) Parainfluenza 3 (PCR) (NotDetected) Parainfluenza 4 (PCR) (NotDetected) RSV (PCR) (NotDetected) Entero/Rhino (PCR) (NotDetected) Imaging Data Radiologist's Impression: Cervical Spine CT 05/09/23 18:04 Exam(s): CT C SPINE EXAM: CT Cervical Spine Without Intravenous Contrast CLINICAL HISTORY: Reason for exam: trauma. TECHNIQUE: Axial computed tomography images of the cervical spine without intravenous contrast. CTDI is 20.7 mGy and DLP is 447.85 mGy-cm. Automated exposure control was utilized for the study. A dose lowering technique was utilized adhering to the principles of ALARA. COMPARISON: None FINDINGS: Bones: Normal alignment. No acute fracture or bony lesion. Disc spaces: No subluxation. No spinal canal stenosis or neuroforaminal stenosis. Soft tissues: Normal. Other: Atherosclerotic changes of the vasculature. IMPRESSION: No acute traumatic abnormality. Electronically signed by: Frank Nieves M.D. 05/09/23 19:30 PM Chest X-Ray 05/09/23 18:04 XR chest 1V portable CLINICAL HISTORY: trauma TECHNIQUE: Single frontal radiograph of the chest was obtained. Comparison: Comparison is made to chest radiograph 12/20/2021 FINDINGS: No lines and tubes are seen. The cardiomediastinal silhouette is normal. The lungs are clear. No evidence of pleural effusion or pneumothorax. IMPRESSION: No acute chest disease. ACT 112: Negative or not required by law. Electronically signed by: Diogenes Kurtz M.D. 05/09/2023 6:[address] 05/09/23 18:04 Exam(s): CT HEAD Without Contrast EXAM: CT Head Without Intravenous Contrast CLINICAL HISTORY: Reason for exam: trauma. TECHNIQUE: Axial computed tomography images of the head/brain without intravenous contrast. CTDI is 37.87 mGy and DLP is 546.36 mGy-cm. Automated exposure control was utilized for the study. A dose lowering technique was utilized adhering to the principles of ALARA. COMPARISON: MRI brain on 08/02/2022. CT head on 12/20/2021. FINDINGS: Brain: No acute infarct or hemorrhage identified. No extra-axial fluid collection. No mass effect or midline shift. Scattered areas of hypoattenuation in the supratentorial white matter likely represent chronic small vessel ischemic changes. Ventricles and sulci: Prominence of the ventricles and sulci is likely secondary to cerebral volume loss. Bones: Normal. No bony lesion or acute fracture. Subcutaneous tissues: Normal. Sinuses: Normal. No air-fluid levels or mucosal thickening. Mastoid air cells: Normal. Orbits: Grossly unremarkable. Other: Atherosclerotic calcifications in the intracranial vasculature. IMPRESSION: 1. No acute intracranial abnormality. 2. Chronic small vessel ischemic changes and cerebral volume loss. Electronically signed by: Frank Nieves M.D. 05/09/23 19:29 PM Pelvis X-Ray 05/09/23 18:04 XR pelvis 1-2V routine CLINICAL HISTORY: trauma TECHNIQUE: A single frontal view of the pelvis was obtained. Comparison: None available at the time of this dictation. FINDINGS: There is no evidence of an acute fracture. Degenerative changes are seen in the hip joints and lumbar spine. No soft tissue abnormality is seen. IMPRESSION: No evidence of acute osseous injury. ACT 112: Negative or not required by law. Electronically signed by: Diogenes Kurtz M.D. 05/09/2023 6:37 PM Discharge Plan Visit Data Chief Complaint: Fall Stated Complaint: FALLEN A FEW TIMES,[place] ED Provider: Bryanna Calvin Discharge Problem: Weakness, Parkinsonism, CHI (closed head injury), Falls, Hyponatremia, Anemia, Leukopenia, Abnormal LFTs Discharge Instructions Interventions: ED Discharge Assessment Last Done: 05/09/23 23:27 Prescriptions Prescriptions: No Action ketoconazole 2 % cream 1 applic topical BID Qty: 30 0RF tamsulosin 0.4 mg capsule 0.4 mg PO HS Qty: 30 11RF Rx Instructions: TAKE 1 CAPSULE BY MOUTH DAILY potassium chloride [Klor-Con 10] 10 mEq tablet extended release 10 meq PO QAM Qty: 30 11RF meclizine 25 mg tablet 25 mg PO TID PRN (Reason: motion sickness) Qty: 30 3RF levothyroxine 50 mcg tablet 50 mcg PO QAM Qty: 30 11RF Rx Instructions: TAKE 1 TABLET DAILY. lisinopril 10 mg tablet 10 mg PO QAM Qty: 90 1RF pantoprazole 40 mg tablet,delayed release (DR/EC) 40 mg PO QAM Qty: 30 11RF valacyclovir 500 mg tablet 500 mg PO HS Qty: 90 4RF amitriptyline 50 mg tablet 50 mg PO HS Qty: 30 2RF venlafaxine 150 mg capsule,extended release 24hr 150 mg PO QAM Qty: 90 1RF Rx Instructions: TOTAL DOSE 225 MG--TAKES WITH 75 MG CAP. furosemide 20 mg tablet 20 mg PO QAM Qty: 30 2RF buspirone 15 mg tablet 15 mg PO .COMPLEX 90 Days Qty: 90 3RF Rx Instructions: 15 mg orally daily , mid afterrnoon; clopidogrel [Plavix] 75 mg tablet 75 mg PO QAM Qty: 30 2RF verapamil 240 mg capsule,ext rel. pellets 24 hr 240 mg PO HS 30 Days Qty: 30 5RF clonazepam 0.5 mg tablet 0.5 mg PO TID Qty: 90 0RF Rx Instructions: temp increase (DME) compression stockings See Rx Instructions .Route .MEDSUPPLY Qty: 1 0RF Rx Instructions: As directed fluticasone propionate 50 mcg/actuation spray,suspension 1 spray intranasal QAM PRN (Reason: Allergy Symptoms) Qty: 16 3RF fexofenadine [[place] Allergy] 180 mg tablet 180 mg PO QAM Qty: 30 3RF ywecavyzjs-dmbbwfneeatys-slnu 50-325-40 mg tablet 1 - 2 tab PO UD PRN (Reason: pain) Qty: 20 0RF Rx Instructions: every 4- 5 hours as needed for severe headache. No more than 2-3 days per week, max 6 tabs in 24 hours (DME) wheeled walker with seat See Rx Instructions .Route .MEDSUPPLY Qty: 1 0RF Rx Instructions: As directed cyanocobalamin (vitamin B-12) 1,000 mcg Lozenge 1,000 mcg SUBLINGUAL QAM venlafaxine 75 mg capsule,extended release 24hr 75 mg PO QAM Rx Instructions: TOTAL DOSE 225 MG--TAKES WITH 150 MG CAP. diclofenac sodium [Arthritis Pain (diclofenac)] 1 % gel 2 g topical QID PRN (Reason: Pain) Rx Instructions: apply to low back pain latanoprost 0.005 % drops 1 drp ophthalmic (eye) UD
[2023-05-09 19:39] LABS: Lyme Ab IgG w/WB Rflx Negative (Negative)
[2023-05-09 19:40] LABS: Lyme Ab IgM w/WB Rflx Negative (Negative)
--- NOTE | 2023-05-09 21:23 | History & Physical Report ---
Date of Service May 09, 2023 Assessment & Plan (1) Falls: Plan: 67yo female with history of frequent falls presenting with several days of generalized weakness, body aches and increased frequency of falls. She reports some head trauma associated with the falls. No focal deficits. Some concern for laboratory abnormalities - low Na, low blood counts and mildly elevated LFTs - ?tick illness, viral illness contributing to patients generalized weakness and increased frequency of falls. -Fall precautions -Await tick studies -Empiric doxycycline 100mg IV BID -Patient lives alone - PT/OT evaluation -Fall precautions -Check CK -Neuro checks with GCS q 4 hours given reported history of head trauma -Check MRI brain -Neurology consultation appreciated (2) Hyponatremia: Plan: [id number]. Unclear if this is contributing to patient's falls. She appears mildly dry on physical exam -Check urine and serum osmolality -Check Urine Na -NSS at 80mL/hr x 1L -Repeat chemistry in AM (3) Abnormal liver enzymes: Plan: AST=99, COU=944, FG=317 Normal bilirubin -Repeat LFTs in AM -If worse, obtain RUQUS, hepatitis panel (4) Abnormal CBC: Plan: Patient with bicytopenia. WBC=1.96 with neutropenia and lymphopenia, normochromic/normocytic anemia with Hgb=10.8, Hct=30.8. ?Tick borne illness vs viral illness. Workup pending -Repeat CBC in AM (5) Acid reflux: Plan: Chronic. Stable. -Protonix 40mg (6) Depression with anxiety: Plan: Chronic. Stable. -Buspirone 10mg po q afternoon -Clonazepam 0.5mg po TID -Venlafaxine 225mg po daily -Amitryptyline 50mg po qHS (7) Hypertension: Plan: Chronic. Blood pressure stable -Lisinopril 10mg po qAM -Verapamil 240mg po qHS F/E/N - NSS at 80mL/hr x 1 liter, monitor Na as above, remainder of electrolyte are WNL. Regular diet as tolerated Ppx - SCDs to bilateral LE Code - DNR/DNI per discussion with patient Dispo -Admit to medical History of Present Illness Chief Complaint: frequent falls Primary Care Provider: BRIEN Chahal Charley Correa is a 67yo female with history of GERD, HTN, HLP, and frequent falls. She follows with Neurology for her ongoing unspecified gait disorder and frequent falls. No formal diagnosis of Parkinson's Disease per review of most recent Neurology note 04/27/23. She has had multiple strokelike episodes in the past - possibly secondary to complicated migraine. She had an MRI of the brain on July 23, 2022 which revealed chronic microvascular ischemic changes and no acute process. Patient states she has not been feeling well all week. She has been very tired with body aches. She reports significant increase in her frequency of falls over the last 3-4 days. She states she fell 6 times on 05/07/23 and over 12 times yesterday 05/08/23. She doesn't think that she's tripping over things or losing her balance. She simply falls. She has no associated dizziness, lightheadedness, chest pain, palpitations, seizure activity preceding or following the falls. She has hit her head several times. No LOC. She reports some difficulty getting up due to weakness - states sometimes it takes her 15 - 20 minutes to get herself up off the floor. Patient was concerned that she was having another stroke-like episode due to the increased frequency of falls. She had some slurred speech but denies any focal numbness, tingling or weakness. No recent illness, travel or sick contacts. She denies any tick bites. She does have pets but has not noted any ticks on them. In the ER she is afebrile, sinus bradycardia at 48bpm Allergies Allergy/AdvReac Type Severity Reaction Status Date / Time methylprednisolone AdvReac Severe Psychosis Verified 05/09/23 19:32 ciprofloxacin [From Cipro] AdvReac Intermediate nausea Verified 05/09/23 19:32 erythromycin base AdvReac Intermediate VOMITTING Verified 05/09/23 19:32 Macrolide Antibiotics AdvReac Intermediate STOMACH Verified 05/09/23 19:32 UPSET Home Medications Medication Instructions Recorded Confirmed Type cyanocobalamin (vitamin B-12) 1,000 mcg sublingual QAM 05/03/20 05/09/23 History 1,000 mcg sublingual lozenge fexofenadine 180 mg tablet 180 mg PO QAM #30 tabs 05/25/21 05/09/23 Rx ([facility]) latanoprost 0.005 % eye drops 1 drp ophthalmic (eye) UD 10/22/21 05/09/23 History compression stockings #1 ea 05/13/22 05/02/23 Rx wheeled walker with seat #1 ea 07/22/22 05/02/23 Rx [id number] 1 - 2 tab PO UD PRN pain #20 tabs 08/13/22 05/09/23 Rx 50 mg-325 mg-40 mg tablet ketoconazole 2 % topical cream 1 applic topical BID #30 grams 01/18/23 05/09/23 Rx levothyroxine 50 mcg tablet 50 mcg PO QAM #30 tabs 02/25/23 05/09/23 Rx lisinopril 10 mg tablet 10 mg PO QAM #90 tabs 02/25/23 05/09/23 Rx meclizine 25 mg tablet 25 mg PO TID PRN motion sickness 02/25/23 05/09/23 Rx #30 tabs pantoprazole 40 mg tablet,delayed 40 mg PO QAM #30 tabs 02/25/23 05/09/23 Rx release potassium chloride 10 mEq 10 meq PO QAM #30 tabs 02/25/23 05/09/23 Rx tablet,extended release (Klor-Con) tamsulosin 0.4 mg capsule 0.4 mg PO HS #30 caps 02/25/23 05/09/23 Rx valacyclovir 500 mg tablet 500 mg PO HS #90 tabs 03/08/23 05/09/23 Rx amitriptyline 50 mg tablet 50 mg PO HS #30 tabs 04/21/23 05/09/23 Rx buspirone 15 mg tablet 15 mg PO .COMPLEX 90 days #90 tabs 04/21/23 05/09/23 Rx clopidogrel 75 mg tablet (Plavix) 75 mg PO QAM #30 tabs 04/21/23 05/09/23 Rx furosemide 20 mg tablet 20 mg PO QAM #30 tabs 04/21/23 05/09/23 Rx venlafaxine 150 mg 150 mg PO QAM #90 caps 04/21/23 05/09/23 Rx capsule,extended release 24 hr verapamil 240 mg 24 hr 240 mg PO HS 30 days #30 caps 04/21/23 05/09/23 Rx capsule,extended release clonazepam 0.5 mg tablet 0.5 mg PO TID #90 tabs 04/28/23 05/09/23 Rx fluticasone propionate 50 1 spray intranasal QAM PRN Allergy 05/02/23 05/09/23 Rx mcg/actuation nasal Symptoms #16 grams spray,suspension diclofenac sodium 1 % topical gel 2 g topical QID PRN Pain 05/09/23 05/09/23 History (Arthritis Pain (diclofenac)) venlafaxine 75 mg capsule,extended 75 mg PO QAM 05/09/23 05/09/23 History release 24 hr Past Med/Surg History Medical History Achalasia, esophageal Arthralgia of multiple sites Cervical radiculopathy Depression with anxiety Esophageal dysmotility GERD (gastroesophageal reflux disease) Glaucoma History of anesthesia reaction unsure of the medication drug; reports getting a locked jaw after a surgery (~) (unsure if it was vein stripping surgery or hysterectomy) History of COVID-19 Aug 17, 2020. no current issues History of shingles takes valtrex daily. no active shingles currently Hx of venous thrombosis and embolism (09/20/11) unsure of exact date. related to HRT. placed on anticoagulant since. Hypertension Hypothyroidism Irritable bowel syndrome (09/20/11) Memory impairment mild - alert and oriented x3 Nausea and vomiting after administration of anesthetic agent Old myocardial infarct (09/20/11) no stents -- no current cardiology, follows with pcp On anticoagulant therapy Osteoarthritis of hands, bilateral Osteoarthritis of right knee Palpitations "irreegular heart beat" Parkinson disease Peripheral edema Restless legs syndrome (09/20/11) Stroke migraine stroke (unsure of date -- within the last 7 years (since 2014) -> deficits include mild/minor dementia, finding right words, memory loss, right arm and leg weakness. follows with [facility]. Stroke October 22, 2021 -> treated at [facility]. right side weakness. December 21, 2021 Stroke-like symptoms Tear of medial meniscus of right knee Transient ischemic attack (TIA) August 2021. Vertigo Surgical History H/O ovarian cystectomy H/O rectocele repair cystocele and rectocele H/O varicose vein ligation and stripping History of appendectomy History of cardiac cath [facility] Salazar. no stents History of colonoscopy History of esophagogastroduodenoscopy (EGD) History of laparoscopy Hx of cataract extraction RT. S/P total abdominal hysterectomy with BSO Family History Mother Myocardial infarction Other No family history of adverse response to anesthesia Denies family history of Ovarian cancer Prostate cancer Breast cancer Colorectal cancer Social History Smoking Status: Never smoker Second Hand Exposure: No; Do You Dip or Chew Tobacco: No; Hx Alcohol Use: No Hx Substance Use: No Preferred Language: Vietnamese Communication Ability: Effective Visual Impairment: No Limitations Oracle Sql Developer Required: No Beliefs That Will Affect Care: None marital status: / Current Living Situation: Alone current occupational status: employed 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 How many Children do You have: 2 Feels Safe at Home: Yes Childhood Exposure to Second-Hand Smoke: No Diet: regular caffeine: Yes Dental Care, Regularly: No Physical Activity Frequency: Daily Seatbelt Use: always Sunscreen Use: Yes (sometimes) Assistive Devices: Cane, Glasses and Walker Review of Systems Review of Systems: All systems reviewed & are unremarkable except as noted in HPI & below Physical Exam Physical Exam: General: patient resting comfortably, NAD, non-toxic in appearance, AA&O x 4 Skin: warm, dry, intact, no rashes or lesions HEENT: NC/AT, PERRL, EOMI, anicteric sclera, conjunctiva without injection, external ear normal to inspection and nontender, nares patent, moist mucus membranes, dentition intact, no oropharyngeal lesions, neck supple, trachea midline, no LAD, no thyromegaly, no JVD Heart: +S1/S2, regular, bradycardic, no m/r/g Lungs: equal air entry bilaterally, no rales/rhonchi/wheezes Abd: +BS, soft, NT/ND, no masses/organomegaly/ascites Ext: warm, 2+ pulses in UE/LE bilaterally, no clubbing/cyanosis or edema Neuro: nonfocal, patient AA&O x 4, speech intact, no facial droop, moving all extremities on command with equal strength 5/5 Results & Data Results & Data Vital Signs (Past 12 Hours) Vital Signs Temp Pulse Pulse Resp BP Pulse Ox O2 Del Method 05/09/23 19:27 48 L 18 98 Room Air 05/09/23 18:50 48 L 05/09/23 16:40 36.8 C 57 L 20 101/65 98 Room Air Laboratory Results Laboratory Results WBC 1.96 K/ul (4.8-10.8) L 05/09/23 18:34 RBC 3.49 M/uL (4.20-5.40) L 05/09/23 18:34 Hgb 10.8 g/dl (12.0-16.0) L 05/09/23 18:34 Hct 30.8 % (37.0-47.0) L 05/09/23 18:34 MCV 88.3 fL (80.0-100.0) 05/09/23 18:34 MCH 30.9 pg (25.0-34.0) 05/09/23 18:34 MCHC 35.1 g/dL (32.0-36.0) 05/09/23 18:34 RDW Std Deviation 43.1 fL (36.4-46.3) 05/09/23 18:34 RDW Coeff of Ana 13.3 % (11.5-14.5) 05/09/23 18:34 Plt Count 147 K/uL (130-400) 05/09/23 18:34 MPV 8.9 fL (9.4-12.4) L 05/09/23 18:34 Immature Gran % (Auto) 0.5 % 05/09/23 18:34 Neut % (Auto) 55.7 % 05/09/23 18:34 Lymph % (Auto) 29.1 % 05/09/23 18:34 Waldo % (Auto) 11.7 % 05/09/23 18:34 Eos % (Auto) 2.0 % 05/09/23 18:34 Baso % (Auto) 1.0 % 05/09/23 18:34 Neut # (Auto) 1.09 K/uL (1.40-6.50) L 05/09/23 18:34 Lymph # (Auto) 0.57 K/uL (1.2-3.4) L 05/09/23 18:34 Waldo # (Auto) 0.23 K/uL (0.11-0.59) 05/09/23 18:34 Eos # (Auto) 0.04 K/uL (0-0.50) 05/09/23 18:34 Baso # (Auto) 0.02 K/uL (0-0.2) 05/09/23 18:34 Immature Gran # (Auto) 0.01 K/uL (0.01-0.20) 05/09/23 18:34 Sodium 123 mmol/L (136-145) L 05/09/23 18:34 Potassium 3.7 mmol/L (3.5-5.1) 05/09/23 18:34 Chloride 92 mmol/L (98-107) L 05/09/23 18:34 Carbon Dioxide 24 mmol/L (21-32) 05/09/23 18:34 Anion Gap 7 (3-11) 05/09/23 18:34 BUN 19 mg/dl (6-23) 05/09/23 18:34 Creatinine 1.02 mg/dl (0.6-1.2) 05/09/23 18:34 Est Cr Clr Drug Dosing 51.2 ml/min 05/09/23 18:34 Est GFR ( Amer) 66.4 ml/min 05/09/23 18:34 Est GFR (Non-Af Amer) 57.3 ml/min 05/09/23 18:34 BUN/Creatinine Ratio 18.6 (10-20) 05/09/23 18:34 Glucose 97 mg/dl (70-99(Fasting)) 05/09/23 18:34 Calcium 8.6 mg/dl (8.6-10.3) 05/09/23 18:34 Magnesium 1.9 mg/dl (1.7-2.4) 05/09/23 18:34 Total Bilirubin 0.5 mg/dl (0.2-1.0) 05/09/23 18:34 AST 99 U/L (13-39) H 05/09/23 18:34 ALT 134 U/L (7-52) H 05/09/23 18:34 Alkaline Phosphatase 120 U/L (34-104) H 05/09/23 18:34 Troponin I High Sens 3.9 pg/ml (0-14) 05/09/23 18:34 Total Protein 6.8 gm/dl (6.0-8.3) 05/09/23 18:34 Albumin 4.1 gm/dl (3.4-5.0) 05/09/23 18:34 Globulin 2.7 gm/dl (2.5-4.0) 05/09/23 18:34 Albumin/Globulin Ratio 1.5 (0.9-2) 05/09/23 18:34 Lipase 8 U/L (11-82) L 05/09/23 18:34 TSH 3.654 uIu/ml (0.300-4.500) 05/09/23 18:34 Anaplasma Smear See Comment 05/09/23 18:34 Lyme Disease IgG Ab Negative (Negative) 05/09/23 18:34 Lyme Disease IgM Ab Negative (Negative) 05/09/23 18:[address] 05/09/23 18:04 Exam(s): CT C SPINE EXAM: CT Cervical Spine Without Intravenous Contrast CLINICAL HISTORY: Reason for exam: trauma. TECHNIQUE: Axial computed tomography images of the cervical spine without intravenous contrast. CTDI is 20.7 mGy and DLP is 447.85 mGy-cm. Automated exposure control was utilized for the study. A dose lowering technique was utilized adhering to the principles of ALARA. COMPARISON: None FINDINGS: Bones: Normal alignment. No acute fracture or bony lesion. Disc spaces: No subluxation. No spinal canal stenosis or neuroforaminal stenosis. Soft tissues: Normal. Other: Atherosclerotic changes of the vasculature. IMPRESSION: No acute traumatic abnormality. Electronically signed by: Frank Nieves M.D. 05/09/23 19:30 PM Chest X-Ray 05/09/23 18:04 XR chest 1V portable CLINICAL HISTORY: trauma TECHNIQUE: Single frontal radiograph of the chest was obtained. Comparison: Comparison is made to chest radiograph 12/20/2021 FINDINGS: No lines and tubes are seen. The cardiomediastinal silhouette is normal. The lungs are clear. No evidence of pleural effusion or pneumothorax. IMPRESSION: No acute chest disease. ACT 112: Negative or not required by law. Electronically signed by: Diogenes Kurtz M.D. 05/09/2023 6:[address] 05/09/23 18:04 Exam(s): CT HEAD Without Contrast EXAM: CT Head Without Intravenous Contrast CLINICAL HISTORY: Reason for exam: trauma. TECHNIQUE: Axial computed tomography images of the head/brain without intravenous contrast. CTDI is 37.87 mGy and DLP is 546.36 mGy-cm. Automated exposure control was utilized for the study. A dose lowering technique was utilized adhering to the principles of ALARA. COMPARISON: MRI brain on 08/02/2022. CT head on 12/20/2021. FINDINGS: Brain: No acute infarct or hemorrhage identified. No extra-axial fluid collection. No mass effect or midline shift. Scattered areas of hypoattenuation in the supratentorial white matter likely represent chronic small vessel ischemic changes. Ventricles and sulci: Prominence of the ventricles and sulci is likely secondary to cerebral volume loss. Bones: Normal. No bony lesion or acute fracture. Subcutaneous tissues: Normal. Sinuses: Normal. No air-fluid levels or mucosal thickening. Mastoid air cells: Normal. Orbits: Grossly unremarkable. Other: Atherosclerotic calcifications in the intracranial vasculature. IMPRESSION: 1. No acute intracranial abnormality. 2. Chronic small vessel ischemic changes and cerebral volume loss. Electronically signed by: Frank Nieves M.D. 05/09/23 19:29 PM Pelvis X-Ray 05/09/23 18:04 XR pelvis 1-2V routine CLINICAL HISTORY: trauma TECHNIQUE: A single frontal view of the pelvis was obtained. Comparison: None available at the time of this dictation. FINDINGS: There is no evidence of an acute fracture. Degenerative changes are seen in the hip joints and lumbar spine. No soft tissue abnormality is seen. IMPRESSION: No evidence of acute osseous injury. ACT 112: Negative or not required by law. Electronically signed by: Diogenes Kurtz M.D. 05/09/2023 6:37 PM ECG Additional Comments: EKG -per my interpretation - study reveals sinus bradycardia at 51bpm, normal axis, DK=201, QRS=84, LBe=605, no acute ischemic changes, no conduction abnormalities PG Care Time/CCT Total # of Minutes Spent Total Time Spent with Patient: Total time spent is greater than 50% in coordination of care (as documented) at patient's floor/unit and/or counseling patient: Coding Level of Care Code 03808 INT INP/OBS CARE 3/75MIN Diagnoses Falls W19.XXXA Hyponatremia E87.1 Abnormal liver enzymes R74.8 Abnormal CBC R79.89 Acid reflux K21.9 Depression with anxiety F41.8 Hypertension I10
[2023-05-09 22:09] LABS: Adenovirus PCR Not Detected (NotDetected); Bordetella parapertussis PCR Not Detected (NotDetected); Bordetella pertussis PCR Not Detected (NotDetected); Chlamydia pneumoniae PCR Not Detected (NotDetected); Coronavirus 229E PCR Not Detected (NotDetected); Coronavirus CoV-2 (COVID19)PCR Not Detected (NotDetected); Coronavirus HKU1 PCR Not Detected (NotDetected); Coronavirus NL63 PCR Not Detected (NotDetected); Coronavirus OC43PCR Not Detected (NotDetected); Human Metapneumovirus PCR Not Detected (NotDetected); Influenza A PCR Not Detected (NotDetected); Influenza B PCR Not Detected (NotDetected); Mycoplasma pneumoniae PCR Not Detected (NotDetected); Parainfluenza Virus 1 PCR Not Detected (NotDetected); Parainfluenza Virus 2 PCR Not Detected (NotDetected); Parainfluenza Virus 3 PCR Not Detected (NotDetected); Parainfluenza Virus 4 PCR Not Detected (NotDetected); Respiratory Syncytial VirusPCR Not Detected (NotDetected); Rhinovirus/Enterovirus PCR Not Detected (NotDetected)
[2023-05-09 22:47] LABS: Appearance Urine Clear (Clear); Bilirubin Urine Negative (Negative); Blood Urine Negative (Negative); Color Urine Yellow; Glucose Urine UA Negative (Negative); Ketones Urine Negative (Negative); Leukocyte Esterase Urine Negative (Negative); Nitrite Urine Negative (Negative); Protein Urine Negative (Negative); Specific Gravity Urine 1.009 (1.000-1.030); Urobilinogen Urine Negative (Negative); pH Urine 6.5 (4.5-7.5)
[2023-05-10] MEDS ORDERED: POLYETHYLENE (MIRALAX) 17 GM PACK PO PRN ×2 (00:51→19:50)
[2023-05-10] MEDS ORDERED: ONDANSETRON INJ 2 MG/ML 2 ML VIAL IV PRN (00:51)
[2023-05-10] MEDS ORDERED: SODIUM CHLORIDE 0.9% 1000ML 1,000 ML IV SCH (00:51)
[2023-05-10] MEDS: AMITRIPTYLINE HCL 50 MG TAB PO SCH ×2 (01:27→20:54)
[2023-05-10] MEDS: VERAPAMIL HCL 240 MG TABCR PO SCH ×2 (01:28→21:13)
[2023-05-10] MEDS: valACYclovir HCL 500 MG TABLET PO SCH ×2 (01:28→20:55)
[2023-05-10] MEDS: TAMSULOSIN HCL 0.4 MG CAP PO SCH ×2 (01:29→20:54)
[2023-05-10] MEDS: clonazePAM 0.5 MG TAB PO SCH ×4 (01:31→21:10)
[2023-05-10] MEDS ORDERED: DOXYCYCLINE HYCLATE 100 MG in DEXTROSE 5% 100 ML IV SCH (02:00)
[2023-05-10] MEDS ORDERED: GADOBUTROL 65ML VIAL IV ONE (04:56)
[2023-05-10 05:58] LABS: Hematocrit (blood only) 30.7 % (37.0-47.0); Hemoglobin 10.7 g/dl (12.0-16.0); Mean Corpuscular Hgb Conc 34.9 g/dL (32.0-36.0); Mean Platelet Volume 8.9 fL (9.4-12.4); Platelet Count 145 K/uL (130-400); RDW Coefficient of Variation 13.2 % (11.5-14.5); RDW Standard Deviation 43.7 fL (36.4-46.3); Red Blood Count 3.45 M/uL (4.20-5.40); White Blood Count 1.83 K/ul (4.8-10.8)
[2023-05-10 06:17] LABS: Albumin Level 3.6 gm/dl (3.4-5.0); BUN Creatinine Ratio 17.2 (10-20); Bilirubin Direct 0.1 mg/dl (0-0.2); Bilirubin,Total 0.4 mg/dl (0.2-1.0); Calcium 8.4 mg/dl (8.6-10.3); Est GFR (African American) 80.5 ml/min; Est GFR (Non-African American) 69.4 ml/min; Phosphorus 3.3 mg/dl (2.5-4.9); Potassium 4.2 mmol/L (3.5-5.1); Total Protein 6.1 gm/dl (6.0-8.3)
[2023-05-10] MEDS: ACETAMINOPHEN 325 MG TAB PO PRN ×3 (06:36→20:57)
[2023-05-10] MEDS: LEVOTHYROXINE SODIUM 50 MCG TABLET PO SCH (06:37)
--- NOTE | 2023-05-10 07:02 | Magnetic Resonance Report ---
MRI OF THE BRAIN WITHOUT AND WITH IV CONTRAST CLINICAL HISTORY: frequent falls - ?CVA COMPARISON STUDY: MRI of the brain July 23, 2022. Head CT May 09, 2023. TECHNIQUE: Utilizing a 1.5 Cindy magnet and dedicated coil, multiplanar, multiecho imaging of the br ain was performed pre and postcontrast administration. IV administration of 7 mL of Gadavist contras t was uneventful. FINDINGS: There are no foci of restricted diffusion to suggest acute infarct. No acute intracranial h emorrhage, midline shift or mass effect is present. Ventricular system is stable. Basal cisterns are patent. No extra-axial collections. Flow-voids for the major intracranial vessels are present. Modera te white matter T2 hyperintense foci are unchanged since MRI of July 23, 2022. There is no intrac ranial mass or pathologic enhancement. The appearance of the brain is unchanged. Calvarial signal is normal. IMPRESSION: 1. No acute intracranial findings. 2. No intracranial mass or pathologic enhancement. 3. No change in appearance of the brain since MRI of July 23, 2022. Stable white matter T2 hyperi ntense foci suggest small vessel disease. ACT 112: Negative or not required by law. Electronically signed by: Nathaniel Hamilton M.D. 05/10/2023 6:59 AM
[2023-05-10] MEDS: VENLAFAXINE HCL XR 75 MG CAPXR PO SCH (07:54)
[2023-05-10] MEDS: busPIRone 15 MG TAB PO SCH ×2 (07:54→13:42)
[2023-05-10] MEDS: VENLAFAXINE HCL XR 150 MG CAPXR PO SCH (07:54)
[2023-05-10] MEDS: CLOPIDOGREL BISULFATE 75 MG TAB PO SCH (07:55)
[2023-05-10] MEDS: PANTOprazole 40 MG TAB PO SCH (07:55)
[2023-05-10] MEDS: FEXOFENADINE HCL 180 MG TAB PO SCH (07:55)
[2023-05-10] MEDS ORDERED: lisinopril 10 MG TAB PO SCH (09:00)
--- NOTE | 2023-05-10 09:20 | Neurology Consultation ---
Date of Consultation May 10, 2023 Assessment & Plan (1) Falls: (2) Gait disorder: (3) Hyponatremia: (4) Anemia: (5) Leukopenia: (6) Abnormal LFTs: Plan 67-year-old female with a history of chronic gait disorder, frequent falls. Patient does not have Parkinson's disease. Her gait dysfunction may be related to chronic, moderately extensive cerebrovascular disease as depicted on MRI. Imaging not suggestive of normal pressure hydrocephalus. No cerebellar or other focal atrophy pattern. I do not think she has progressive supranuclear palsy or other atypical parkinsonian syndrome. Her recent imaging is negative for subdural hematoma, hemorrhage, or other acute process. She does not have a history suggestive of seizures. I do not think she is having drop attacks due to vertebrobasilar insufficiency. A CTA of the head and neck completed in July 2022 revealed stable moderate to high-grade focal stenosis of both posterior cerebral arteries but was otherwise unremarkable. It would not be unreasonable to obtain an up-to-date CTA of the head and neck to reassess her vertebrobasilar circulation. I do not think she needs an EEG. I would not recommend another trial of carbidopa levodopa. Continue medical management of hyponatremia, anemia, leukopenia, and abnormal LFTs. Patient may follow-up with either myself or one of our advanced practice providers in neurology clinic for ongoing monitoring of her gait dysfunction in 2 to 3 weeks. Please contact me if you have any questions regarding this neurological assessment. History of Present Illness Reason for Consultation: frequent falls, Parkinson's? Requesting Physician: Dr. Rodriguez Attending Physician: Royal Beatty MD History of Present Illness The patient is a 67-year-old female who is known to me. She has a history of gait disorder, flexed posture, frequent falls, strokelike episodes, chronic cerebrovascular disease, no hydrocephalus, no specific or focal atrophy pattern on MRI, no benefit with previous Sinemet trial. I last saw her in clinic April 27, 2023 and had referred her to physical therapy for gait and balance at that time. Her blood pressure does tend to run low at times. She had contacted our office yesterday complaining of several recent falls with associated head injury, no loss of consciousness, no associated dizziness. She indicates that her legs simply give out from under her, she either falls forward or backwards. She had difficulty getting up on her own. She denies any associated focal strokelike symptoms such as slurred speech, focal weakness, or vision disturbance. A CT of the head completed yesterday during her ED assessment was negative for hemorrhage or acute process. A follow-up brain MRI was also fairly unremarkable. I did independently review these images. No evidence of acute or subacute stroke. No evidence of hemorrhage. No hydrocephalus. No abnormal postcontrast enhancement. There is stable chronic small vessel ischemic disease. She has been afebrile. Her blood pressure does tend to run a little low, 95/57 this morning. Labs reveal a leukopenia, mild anemia, hyponatremia, mild elevation in transaminases, normal CK, normal TSH, low urine osmolality. An ECG revealed sinus bradycardia. This morning the patient is without specific or focal neurological complaint. No headache, vision disturbance, slurred speech, numbness or focal weakness. Her balance remains poor. She has a rolling walker at bedside, she needs assistance from nursing when using the bathroom. Allergies Allergy/AdvReac Type Severity Reaction Status Date / Time methylprednisolone AdvReac Severe Psychosis Verified 05/09/23 19:32 ciprofloxacin [From Cipro] AdvReac Intermediate nausea Verified 05/09/23 19:32 erythromycin base AdvReac Intermediate VOMITTING Verified 05/09/23 19:32 Macrolide Antibiotics AdvReac Intermediate STOMACH Verified 05/09/23 19:32 UPSET Home Medications Medication Instructions Recorded Confirmed Type cyanocobalamin (vitamin B-12) 1,000 mcg sublingual QAM 05/03/20 05/09/23 History 1,000 mcg sublingual lozenge fexofenadine 180 mg tablet 180 mg PO QAM #30 tabs 05/25/21 05/09/23 Rx ([facility]) latanoprost 0.005 % eye drops 1 drp ophthalmic (eye) UD 10/22/21 05/09/23 History compression stockings #1 ea 05/13/22 05/02/23 Rx wheeled walker with seat #1 ea 07/22/22 05/02/23 Rx ibkacyyryq-mebdhbtdkkdrg-kwsivdvg 1 - 2 tab PO UD PRN pain #20 tabs 08/13/22 05/09/23 Rx 50 mg-325 mg-40 mg tablet ketoconazole 2 % topical cream 1 applic topical BID #30 grams 01/18/23 05/09/23 Rx levothyroxine 50 mcg tablet 50 mcg PO QAM #30 tabs 02/25/23 05/09/23 Rx lisinopril 10 mg tablet 10 mg PO QAM #90 tabs 02/25/23 05/09/23 Rx meclizine 25 mg tablet 25 mg PO TID PRN motion sickness 02/25/23 05/09/23 Rx #30 tabs pantoprazole 40 mg tablet,delayed 40 mg PO QAM #30 tabs 02/25/23 05/09/23 Rx release potassium chloride 10 mEq 10 meq PO QAM #30 tabs 02/25/23 05/09/23 Rx tablet,extended release (Klor-Con) tamsulosin 0.4 mg capsule 0.4 mg PO HS #30 caps 02/25/23 05/09/23 Rx valacyclovir 500 mg tablet 500 mg PO HS #90 tabs 03/08/23 05/09/23 Rx amitriptyline 50 mg tablet 50 mg PO HS #30 tabs 04/21/23 05/09/23 Rx buspirone 15 mg tablet 15 mg PO .COMPLEX 90 days #90 tabs 04/21/23 05/09/23 Rx clopidogrel 75 mg tablet (Plavix) 75 mg PO QAM #30 tabs 04/21/23 05/09/23 Rx furosemide 20 mg tablet 20 mg PO QAM #30 tabs 04/21/23 05/09/23 Rx venlafaxine 150 mg 150 mg PO QAM #90 caps 04/21/23 05/09/23 Rx capsule,extended release 24 hr verapamil 240 mg 24 hr 240 mg PO HS 30 days #30 caps 04/21/23 05/09/23 Rx capsule,extended release clonazepam 0.5 mg tablet 0.5 mg PO TID #90 tabs 04/28/23 05/09/23 Rx fluticasone propionate 50 1 spray intranasal QAM PRN Allergy 05/02/23 05/09/23 Rx mcg/actuation nasal Symptoms #16 grams spray,suspension diclofenac sodium 1 % topical gel 2 g topical QID PRN Pain 05/09/23 05/09/23 History (Arthritis Pain (diclofenac)) venlafaxine 75 mg capsule,extended 75 mg PO QAM 05/09/23 05/09/23 History release 24 hr Patient History Medical History Achalasia, esophageal Arthralgia of multiple sites Cervical radiculopathy Depression with anxiety Esophageal dysmotility GERD (gastroesophageal reflux disease) Glaucoma History of anesthesia reaction unsure of the medication drug; reports getting a locked jaw after a surgery (~) (unsure if it was vein stripping surgery or hysterectomy) History of COVID-19 Aug 17, 2020. no current issues History of shingles takes valtrex daily. no active shingles currently Hx of venous thrombosis and embolism (09/20/11) unsure of exact date. related to HRT. placed on anticoagulant since. Hypertension Hypothyroidism Irritable bowel syndrome (09/20/11) Memory impairment mild - alert and oriented x3 Nausea and vomiting after administration of anesthetic agent Old myocardial infarct (09/20/11) no stents -- no current cardiology, follows with pcp On anticoagulant therapy Osteoarthritis of hands, bilateral Osteoarthritis of right knee Palpitations "irreegular heart beat" Parkinson disease Peripheral edema Restless legs syndrome (09/20/11) Stroke migraine stroke (unsure of date -- within the last 7 years (since 2014) -> deficits include mild/minor dementia, finding right words, memory loss, right arm and leg weakness. follows with [facility]. Stroke October 22, 2021 -> treated at [facility]. right side weakness. December 21, 2021 Stroke-like symptoms Tear of medial meniscus of right knee Transient ischemic attack (TIA) August 2021. Vertigo Surgical History H/O ovarian cystectomy H/O rectocele repair cystocele and rectocele H/O varicose vein ligation and stripping History of appendectomy History of cardiac cath [facility]. no stents History of colonoscopy History of esophagogastroduodenoscopy (EGD) History of laparoscopy Hx of cataract extraction RT. S/P total abdominal hysterectomy with BSO Family History Mother Myocardial infarction Other No family history of adverse response to anesthesia Denies family history of Ovarian cancer Prostate cancer Breast cancer Colorectal cancer Social History Smoking Status: Never smoker Second Hand Exposure: No; Do You Dip or Chew Tobacco: No; Hx Alcohol Use: No Hx Substance Use: No Preferred Language: Slovak Communication Ability: Effective Visual Impairment: No Limitations Switch Repairer Required: No Beliefs That Will Affect Care: None marital status: / Current Living Situation: Alone current occupational status: employed 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 How many Children do You have: 2 Feels Safe at Home: Yes Safety Concerns: Feels Safe At This Time Childhood Exposure to Second-Hand Smoke: No Diet: regular caffeine: Yes Dental Care, Regularly: No Physical Activity Frequency: Daily Seatbelt Use: always Sunscreen Use: Yes (sometimes) Assistive Devices: Wheelchair Review of Systems Constitutional: no fever and no chills Eyes: no blind spots and no diplopia Ear, Nose, Mouth, Throat: no hearing loss Respiratory: no cough and no dyspnea Cardiovascular: no chest pain and no palpitations Gastrointestinal: no nausea and no vomiting Genitourinary: no urinary incontinence Musculoskeletal: no neck pain and no myalgia Integumentary: no rash and no lesions Neurologic: as per Subjective / HPI, + gait abnormality and + falls; no tremor(s) Psychiatric: no depression and no anxiety Hematologic / Lymphatic: no easy bleeding and no easy bruising Exam (Neuro) Constitutional: + frail appearing; no acute distress Eyes: normal visual leigh by confrontation, PERRL and EOM intact bilaterally; no papilledema Cardiovascular: Vessels: no carotid bruit Neurologic: Oriented to:: Person, Place and Time Memory: Short Term Intact and Remote Intact Attention: Span Intact and Concentration Intact Speech Fluency: negative Dysarthria or Dysfluency Fund of Knowledge: Current Events, Past History and Vocabulary Cranial Nerves: Normal II, III, IV, , V, VII, VIII, IX, X, XI and XII Motor Strength: Normal Lower Extremities and Normal Upper Extremities Motor Tone: Normal Lower Extremities and Normal Upper Extremities Rigidity: None Muscle Bulk/Involuntary Movements: No Involuntary Movements; negative Muscle Atrophy Sensation: Light Touch Intact, Pain/Temperature Intact, Vibration Intact and Proprioception Intact Coordination: negative Finger-Nose Abnormal or Heel-Slaughter Abnormal Deep Tendon Reflexes: Rt Triceps: 2+, Lt Triceps: 2+, Rt Biceps: 2+, Lt Biceps: 2+, Rt Brachioradialis: 2+, Lt Brachioradialis: 2+, Rt Patellar: 2+, Lt Patellar: 2+, Rt Ankle: 1+ and Lt Ankle: 1+ Special Tests: negative Babinski Present Details: Mild intention tremor noted bilaterally with [id number]. Gait could not be safely tested. Results & Data Vital Signs (Past 12 Hours) Vital Signs Temp Pulse Pulse Resp BP Pulse Ox O2 Del Method 05/10/23 07:38 36.5 C 52 L 18 95/57 L 94 Room Air 05/10/23 00:55 36.3 C L 83 20 108/71 97 Room Air 05/09/23 22:57 55 L 05/09/23 23:27 Room Air Laboratory Results WBC 1.83, hemoglobin 10.7, hematocrit 30.7, platelet count 145, sodium 129, potassium 4.2, BUN 15, creatinine 0.87, glucose 99, osmolality 276, calcium 8.4, AST 98, ALT 135, total CK 75, TSH 3.654, urine osmolality 183 Coding Level of Care Code 40930 INT INP/OBS CARE 75MIN Diagnoses Falls W19.XXXA Gait disorder R26.9 Hyponatremia E87.1 Anemia D64.9 Leukopenia D72.819 Abnormal LFTs R79.89
--- NOTE | 2023-05-10 10:55 | Electrocardiogram Report ---
Test Reason : Blood Pressure : / mmHG Vent. Rate : 051 BPM Atrial Rate : 051 BPM P-R Int : 164 ms QRS Dur : 084 ms QT Int : 466 ms P-R-T Axes : 054 022 057 degrees QTc Int : 429 ms Sinus bradycardia Otherwise normal ECG When compared with ECG of 23-JUL-2022 12:46, Nonspecific T wave abnormality Anterior leads no longer present Confirmed by Ever Hanley ([id number]) on 05/10/2023 10:55:10 AM Referred By: Stevie Neely Confirmed By:Ever Hanley
--- NOTE | 2023-05-10 16:00 | Hospitalist Progress Note ---
Date of Service May 10, 2023 Assessment & Plan (1) Falls: Plan: 67yo female with history of frequent falls presenting with several days of generalized weakness, body aches and increased frequency of falls. According to patient, she says her legs just give and she drops to the floor, no dizziness or numbness. Etiology is uncertain, MRI brain shows evidence of chronic ischemic disease Followed by neurology, has been extensively worked up, no evidence of Parkinson, supranuclear palsy, NPH, seizure Patient claims her gait is stronger today following PT Outpatient follow up with neurology (2) Hyponatremia: Plan: Mild hyponatremia, could be SIADH Fluid restriction to 1.5L/24 hrs salt tablets Hold Lasix (3) Abnormal liver enzymes: Plan: AST=99, GBL=271, JL=720 Normal bilirubin will obtain hepatitis viral panel (4) Abnormal CBC: Plan: Patient with bicytopenia. WBC=1.96 with neutropenia and lymphopenia, normochromic/normocytic anemia with Hgb=10.8, Hct=30.8. ?Tick borne illness vs viral illness. Vitamin B12, Iron levels wnl (5) Acid reflux: Plan: Chronic. Stable. -Protonix 40mg (6) Depression with anxiety: Plan: Chronic. Stable. -Buspirone 10mg po q afternoon -Clonazepam 0.5mg po TID -Venlafaxine 225mg po daily -Amitryptyline 50mg po qHS (7) Hypertension: Plan: Low BP Will hold anti hypertensives -Lisinopril 10mg po qAM -Verapamil 240mg po qHS l Plan F/E/N - NSS at 80mL/hr x 1 liter, monitor Na as above, remainder of electrolyte are WNL. Regular diet as tolerated Ppx - SCDs to bilateral LE Code - DNR/DNI per discussion with patient Dispo -Patient will benefit from rehab Admission and Anticipated Discharge Date Admission Date: May 09, 2023 Subjective patient seen and examined, says her weakness is better, participating in PT Review of Systems Review of Systems: All systems reviewed are negative, apart from the ones contained in the history. Physical Exam Physical Exam: The patient is awake, alert and oriented 3, well developed and well nourished, normocephalic and atraumatic, lying in bed and in no acute distress. HEENT--PERRL, EOMI, mucous membranes and oropharynx mildly dry Neck--supple. No JVD. No bruits. Thyroid normal, trachea midline, no adenopathy. Heart--normal S1 and S2. No murmurs, rubs or gallops. Lungs--clear bilaterally, no respiratory distress, no accessory muscle use. Abdomen--normal bowel sounds and soft. Mild epigastric and left sided abdominal pain Extremities--no cyanosis or clubbing. No edema. Dermatologic--normal skin turgor, normal color, no abnormal lymph nodes, no rash. Neurologic--cranial nerves II through XII grossly intact. Rheumatologic--normal range of motion. Psychiatric--normal affect. Results & Data Results & Data Vital Signs (Past 12 Hours) Vital Signs Temp Pulse Resp BP Pulse Ox O2 Del Method 05/10/23 07:38 97.7 F 52 L 18 95/57 L 94 Room Air PG Care Time/CCT Total # of Minutes Spent Total Time Spent with Patient: Total time spent is greater than 50% in coordination of care (as documented) at patient's floor/unit and/or counseling patient: Coding Level of Care Code 81263 SUB INP/OBS CARE 2/35MIN Diagnoses Falls W19.XXXA Hyponatremia E87.1 Abnormal liver enzymes R74.8 Abnormal CBC R79.89 Acid reflux K21.9 Depression with anxiety F41.8 Hypertension I10 Time Spent (min) 35
[2023-05-10] MEDS ORDERED: ARTIFICIAL TEARS OP PRN (19:47)
[2023-05-10] MEDS: LATANOPROST 0.005% OP SOLN 2.5 ML BTL OP SCH (20:54)
[2023-05-10] MEDS: SODIUM CHLORIDE 1 GM TABLET PO SCH (20:57)
[2023-05-10] MEDS ORDERED: LATANOPROST 0.005% OP SOLN 2.5 ML BTL OP SCH (21:00)
[2023-05-11] MEDS: LEVOTHYROXINE SODIUM 50 MCG TABLET PO SCH (06:10)
[2023-05-11 07:18] LABS: BUN Creatinine Ratio 15.7 (10-20); Calcium 8.6 mg/dl (8.6-10.3); Creatinine Clr Calc Pharmacy 58.7 ml/min; Est GFR (African American) 78.3 ml/min; Est GFR (Non-African American) 67.5 ml/min; Potassium 4.6 mmol/L (3.5-5.1)
[2023-05-11 07:28] LABS: Hematocrit (blood only) 31.2 % (37.0-47.0); Mean Corpuscular Hemoglobin 31.1 pg (25.0-34.0); Mean Corpuscular Hgb Conc 35.3 g/dL (32.0-36.0); Mean Corpuscular Volume 88.1 fL (80.0-100.0); Mean Platelet Volume 9.2 fL (9.4-12.4); Platelet Count 176 K/uL (130-400); RDW Coefficient of Variation 13.5 % (11.5-14.5); RDW Standard Deviation 44.2 fL (36.4-46.3); Red Blood Count 3.54 M/uL (4.20-5.40)
[2023-05-11] MEDS: ACETAMINOPHEN 325 MG TAB PO PRN (08:12)
[2023-05-11] MEDS: LATANOPROST 0.005% OP SOLN 2.5 ML BTL OP SCH (08:15)
[2023-05-11] MEDS: busPIRone 15 MG TAB PO SCH ×2 (08:15→13:59)
[2023-05-11] MEDS: CLOPIDOGREL BISULFATE 75 MG TAB PO SCH (08:16)
[2023-05-11] MEDS: FEXOFENADINE HCL 180 MG TAB PO SCH (08:17)
[2023-05-11] MEDS: PANTOprazole 40 MG TAB PO SCH (08:17)
[2023-05-11] MEDS: SODIUM CHLORIDE 1 GM TABLET PO SCH (08:17)
[2023-05-11] MEDS: VENLAFAXINE HCL XR 75 MG CAPXR PO SCH (08:18)
[2023-05-11] MEDS: VENLAFAXINE HCL XR 150 MG CAPXR PO SCH (08:18)
[2023-05-11] MEDS: clonazePAM 0.5 MG TAB PO SCH ×2 (08:24→13:58)
--- NOTE | 2023-05-12 10:38 | Discharge Summary ---
Date of Service May 11, 2023 Admission HPI Per Admitting Provider Charley Correa is a 67yo female with history of GERD, HTN, HLP, and frequent falls. She follows with Neurology for her ongoing unspecified gait disorder and frequent falls. No formal diagnosis of Parkinson's Disease per review of most recent Neurology note 04/27/23. She has had multiple strokelike episodes in the past - possibly secondary to complicated migraine. She had an MRI of the brain on July 23, 2022 which revealed chronic microvascular ischemic changes and no acute process. Patient states she has not been feeling well all week. She has been very tired with body aches. She reports significant increase in her frequency of falls over the last 3-4 days. She states she fell 6 times on 05/07/23 and over 12 times yesterday 05/08/23. She doesn't think that she's tripping over things or losing her balance. She simply falls. She has no associated dizziness, lightheadedness, chest pain, palpitations, seizure activity preceding or following the falls. She has hit her head several times. No LOC. She reports some difficulty getting up due to weakness - states sometimes it takes her 15 - 20 minutes to get herself up off the floor. Patient was concerned that she was having another stroke-like episode due to the increased frequency of falls. She had some slurred speech but denies any focal numbness, tingling or weakness. No recent illness, travel or sick contacts. She denies any tick bites. She does have pets but has not noted any ticks on them. In the ER she is afebrile, sinus bradycardia at 48bpm Principal Diagnosis hyponatremia Discharge Exam The patient is awake, alert and oriented 3, well developed and well nourished, normocephalic and atraumatic, lying in bed and in no acute distress. HEENT--PERRL, EOMI, mucous membranes and oropharynx mildly dry Neck--supple. No JVD. No bruits. Thyroid normal, trachea midline, no adenopathy. Heart--normal S1 and S2. No murmurs, rubs or gallops. Lungs--clear bilaterally, no respiratory distress, no accessory muscle use. Abdomen--normal bowel sounds and soft. Mild epigastric and left sided abdominal pain Extremities--no cyanosis or clubbing. No edema. Dermatologic--normal skin turgor, normal color, no abnormal lymph nodes, no rash. Neurologic--cranial nerves II through XII grossly intact. Rheumatologic--normal range of motion. Psychiatric--normal affect. Discharge Data Allergies Allergy/AdvReac Type Severity Reaction Status Date / Time methylprednisolone AdvReac Severe Psychosis Verified 05/09/23 19:32 ciprofloxacin [From Cipro] AdvReac Intermediate nausea Verified 05/09/23 19:32 erythromycin base AdvReac Intermediate VOMITTING Verified 05/09/23 19:32 Macrolide Antibiotics AdvReac Intermediate STOMACH Verified 05/09/23 19:32 UPSET Consultations 05/09/23 20:18 ED Decision to Admit Stat 05/10/23 00:51 Consult Neurology Routine Ordered Studies 05/09/23 18:04 CT cervical spine wo con Stat CT head/brain wo con Stat 05/10/23 00:51 MRI Brain [MR brain wo/w con] Routine Hospital Course (1) Falls: 67yo female with history of frequent falls presenting with several days of generalized weakness, body aches and increased frequency of falls. According to patient, she says her legs just give and she drops to the floor, no dizziness or numbness. Etiology is uncertain, MRI brain shows evidence of chronic ischemic disease Followed by neurology, has been extensively worked up, no evidence of Parkinson, supranuclear palsy, NPH, seizure Patient claims her gait is stronger today following PT Outpatient follow up with neurology (2) Hyponatremia: Mild hyponatremia, could be SIADH Fluid restriction to 1.5L/24 hrs salt tablets Hold Lasix (3) Abnormal liver enzymes: AST=99, GCO=327, JR=378 Normal bilirubin will obtain hepatitis viral panel (4) Abnormal CBC: Patient with bicytopenia. WBC=1.96 with neutropenia and lymphopenia, normochromic/normocytic anemia with Hgb=10.8, Hct=30.8. ?Tick borne illness vs viral illness. Vitamin B12, Iron levels wnl (5) Acid reflux: Chronic. Stable. -Protonix 40mg (6) Depression with anxiety: Chronic. Stable. -Buspirone 10mg po q afternoon -Clonazepam 0.5mg po TID -Venlafaxine 225mg po daily -Amitryptyline 50mg po qHS (7) Hypertension: Resume your home meds Lisinopril Plan F/E/N - NSS at 80mL/hr x 1 liter, monitor Na as above, remainder of electrolyte are WNL. Regular diet as tolerated Ppx - SCDs to bilateral LE Code - DNR/DNI per discussion with patient Dispo -Patient will benefit from rehab Total Time Total Time Spent Total Time Spent (In Minutes): 35 Discharge Plan Discharge Items Patient Disposition: Home - Home Health Services Reason For Visit: FREQUENT FALLS Discharge Diagnosis: Osteoarthritis, frequent falls Activity: Resume your previous activity Non-emergency contact: Primary Care Provider Call non-emergency contact if: you have any medication questions Follow-up/Referrals: Angelina Hobbs CRNP [Primary Care Provider] - 05/16/23 11:00 am Diet: Regular Addtl Attending Provider Instructions: please follow up with your regular doctors Pending Studies at Discharge: No Stand-Alone Forms: My deskwolf, Smoking Cessation Medications and DC Order Prescriptions: New sodium chloride 1,000 mg Tablet,Soluble 1,000 mg PO BID Qty: 10 0RF Continued ketoconazole 2 % cream 1 applic topical BID Qty: 30 0RF tamsulosin 0.4 mg capsule 0.4 mg PO HS Qty: 30 11RF Rx Instructions: TAKE 1 CAPSULE BY MOUTH DAILY potassium chloride [Klor-Con 10] 10 mEq tablet extended release 10 meq PO QAM Qty: 30 11RF meclizine 25 mg tablet 25 mg PO TID PRN (Reason: motion sickness) Qty: 30 3RF levothyroxine 50 mcg tablet 50 mcg PO QAM Qty: 30 11RF Rx Instructions: TAKE 1 TABLET DAILY. lisinopril 10 mg tablet 10 mg PO QAM Qty: 90 1RF pantoprazole 40 mg tablet,delayed release (DR/EC) 40 mg PO QAM Qty: 30 11RF valacyclovir 500 mg tablet 500 mg PO HS Qty: 90 4RF amitriptyline 50 mg tablet 50 mg PO HS Qty: 30 2RF venlafaxine 150 mg capsule,extended release 24hr 150 mg PO QAM Qty: 90 1RF Rx Instructions: TOTAL DOSE 225 MG--TAKES WITH 75 MG CAP. buspirone 15 mg tablet 15 mg PO .COMPLEX 90 Days Qty: 90 3RF Rx Instructions: 15 mg orally daily , mid afterrnoon; clopidogrel [Plavix] 75 mg tablet 75 mg PO QAM Qty: 30 2RF verapamil 240 mg capsule,ext rel. pellets 24 hr 240 mg PO HS 30 Days Qty: 30 5RF clonazepam 0.5 mg tablet 0.5 mg PO TID Qty: 90 0RF Rx Instructions: temp increase (DME) compression stockings See Rx Instructions .Route .MEDSUPPLY Qty: 1 0RF Rx Instructions: As directed fluticasone propionate 50 mcg/actuation spray,suspension 1 spray intranasal QAM PRN (Reason: Allergy Symptoms) Qty: 16 3RF sudwjzbqus-fptbcvlzolhmh-wuqp 50-325-40 mg tablet 1 - 2 tab PO UD PRN (Reason: pain) Qty: 20 0RF Rx Instructions: every 4- 5 hours as needed for severe headache. No more than 2-3 days per week, max 6 tabs in 24 hours (DME) wheeled walker with seat See Rx Instructions .Route .MEDSUPPLY Qty: 1 0RF Rx Instructions: As directed cyanocobalamin (vitamin B-12) 1,000 mcg Lozenge 1,000 mcg SUBLINGUAL QAM venlafaxine 75 mg capsule,extended release 24hr 75 mg PO QAM Rx Instructions: TOTAL DOSE 225 MG--TAKES WITH 150 MG CAP. diclofenac sodium [Arthritis Pain (diclofenac)] 1 % gel 2 g topical QID PRN (Reason: Pain) Rx Instructions: apply to low back pain latanoprost 0.005 % drops 1 drp ophthalmic (eye) UD Discontinued furosemide 20 mg tablet 20 mg PO QAM Qty: 30 2RF Discharge Orders: Discharge Order (Routine); Ordered 05/11/23 Ordered By: Royal Barragan/Other Patient Handouts: ED Dehydration (Adult), ED Hyponatremia Admission Data Admit Date/Time: 05/09/23 20:58 Attending Provider: Royal Beatty Admit Provider: Carol Rodriguez Primary Care Provider: Angelina Hobbs. Other Providers: Carol Rodriguez ; Stevie Neely ; [facility],Home Health Other Interventions: Discharge Summary Assessment (RN) Last Done: 05/11/23 12:56 Coding Level of Care Code 09599 INP/OBS DISCH >30 MIN Diagnoses Falls W19.XXXA Hyponatremia E87.1 Abnormal liver enzymes R74.8 Abnormal CBC R79.89 Acid reflux K21.9 Depression with anxiety F41.8 Hypertension I10 Time Spent (min) 35
[2023-05-17 14:07] LABS: Ehrlichia chaff DNA Bld Negative (Negative)
== END 2023-05-11 14:11 | disposition home health service (06) ==
LOC: ED 16:30 → SUATTDRO 20:58 → 3W 20:58 → INTOOBSV 20:58 → 3W 23:27

== ENCOUNTER 2023-06-15 20:07 | Observation (INO) ==
[2023-06-15] MEDS ORDERED: ONDANSETRON INJ 2 MG/ML 2 ML VIAL IV STA (20:42)
[2023-06-15] MEDS ORDERED: MoRPHine SULFATE 4 MG/ML 1 ML CARP\\VIAL IV STA (20:42)
--- NOTE | 2023-06-15 20:45 | Emergency Department Note ---
Impression & Plan Numbness ADMIT ED Provider Note HPI: The patient is a 67-year-old female with history of hemiplegic migraines, TIA, parkinsonism, presents emergency department with a chief complaint of headache. Patient states that she developed a headache at around 5:30 PM. She states it was associated with some tingling and numbness on the R side of her lips, tongue, and the right part of her face and right upper extremity. Patient denies any motor weakness. On arrival here to the ED the patient is in no acute distress, she is alert, she is hemodynamically stable. She states her headache is improved from previous but she still does have a generalized headache. Patient denies any recent fevers. ROS: - Per HPI Differential Diagnosis: Complex migraine, acute ischemic stroke, intracranial hemorrhage to include subarachnoid hemorrhage, subdural hemorrhage, intr aparenchymal hemorrhage, amongst other potential pathologies. *Outpatient medications and allergy history reviewed. *Pertinent external medical records reviewed. PE: General: Alert HEENT: Normocephalic, trachea midline Eyes: Extraocular eye movement is intact, no scleral erythema Pulmonary: Clear to auscultation bilaterally, no wheezing Cardio: Regular rate and rhythm GI: Abdomen is soft to palpation : No suprapubic tenderness MSK: No evidence of trauma or malformation of the extremities, no edema Skin: No evidence of rash Neuro: Alert, no focal deficits, symmetrical facial movements are appreciated, no ataxia on finger-nose testing bilaterally, no drift of the upper extremities or lower extremities with testing against gravity Psychiatric: Cooperative potline monitor: (As interpreted by myself): - An order was placed for continuous cardiac monitoring - Patient was noted to be in sinus rhythm with a rate of 65 EKG: (As interpreted by myself): Rate: 54 Rhythm: Sinus bradycardia Intervals: Within normal limits ST changes: No ST elevation Time: 0028 Interventions provided in ED: -IV morphine, IV Zofran, aspirin Medical Decision Making: Shortly after the patient arrived IV was established and lab work obtained, patient was placed on nuclear monitoring technician. Patient has mild symptoms on arrival that are purely sensory, she does not have any motor deficits, she is not considered a tPA candidate as stroke is not the definitive diagnosis (history of hemiplegic migraine headaches) and symptoms at this time are mild. Lab work obtained shows no leukocytosis, hemoglobin is normal, platelet count is normal, CMP shows mild hyponatremia at 134 but otherwise no abnormalities. Troponin is negative, EKG shows sinus rhythm. CT imaging of the head and CT an giography of the head do not show any evidence of any acute ischemic stroke, no large vessel occlusion, there is noted to be some calcified plaque in the bilateral internal carotid arteries. Patient was given IV morphine and IV Zofran as well as aspirin here in the ED. On my reassessment she states she is feeling much improved but she still does feel somewhat off balance now when she gets up to go to the bathroom, headache is still present and she does still have some numbness sensation on the right side of her face and right upper extremity. Overall of low suspicion for acute ischemic stroke as a source of the symptoms with negative imaging and history of hemiplegic migraine headaches, however patient does have some evidence of calcification on CT imaging and if she is not feeling back to baseline I am in agreement for admission for further management and MRI of the brain. Patient s tated preference for this plan, case was discussed with the on-call [facility] hospitalist service admitting resident, and the patient was placed for admission in stable condition. Consultants: Hospitalist service, Dr. Dong Disposition discussion held by myself with: Patient Diagnosis: 1. Headache, acute, non-intractable 2. Right-sided numbness, acute 3. Carotid artery calcifications on CT angiography Disposition: Admission Adithya Ball DO Emergency Medicine Past Med/Surg History Medical History (Updated 06/16/23 @ 01:29 by Adithya Ball DO) Achalasia, esophageal Acid reflux Anemia Anemia Arthralgia of multiple sites Cervical radiculopathy Depression with anxiety Esophageal dysmotility GERD (gastroesophageal reflux disease) Glaucoma History of anesthesia reaction unsure of the medication drug; reports getting a locked jaw after a surgery (~1979's) (unsure if it was vein stripping surgery or hysterectomy) History of COVID-19 Aug 17, 2020. no current issues History of shingles takes valtrex daily. no active shingles currently Hx of venous thrombosis and embolism (09/20/11) unsure of exact date. related to HRT. placed on anticoagulant since. Hypertension Hypothyroidism Irritable bowel syndrome (09/20/11) Memory impairment mild - alert and oriented x3 Migraine Nausea and vomiting after administration of anesthetic agent Old myocardial infarct (09/20/11) no stents -- no current cardiology, follows with pcp On anticoagulant therapy Osteoarthritis of hands, bilateral Osteoarthritis of right knee Palpitations "irreegular heart beat" Parkinson disease Peripheral edema Restless legs syndrome (09/20/11) Stroke migraine stroke (unsure of date -- within the last 7 years (since 2014) -> deficits include mild/minor dementia, finding right words, memory loss, right arm and leg weakness. follows with [facility]. Stroke October 22, 2021 -> treated at [facility]. right side weakness. December 21, 2021 Stroke-like symptoms Tear of medial meniscus of right knee Transient ischemic attack (TIA) August 2021. Vertigo Surgical History H/O ovarian cystectomy H/O rectocele repair cystocele and rectocele H/O varicose vein ligation and stripping History of appendectomy History of cardiac cath [facility] [place]. no stents History of colonoscopy History of esophagogastroduodenoscopy (EGD) History of laparoscopy Hx of cataract extraction RT. S/P total abdominal hysterectomy with BSO Family History Mother Myocardial infarction Other No family history of adverse response to anesthesia Denies family history of Ovarian cancer Prostate cancer Breast cancer Colorectal cancer Social History Smoking Status: Never smoker Second Hand Exposure: No; Do You Dip or Chew Tobacco: No; Hx Alcohol Use: No Hx Substance Use: No Preferred Language: Georgian Communication Ability: Effective Visual Impairment: No Limitations C4 Planner Required: No Beliefs That Will Affect Care: None marital status: / Current Living Situation: Alone current occupational status: employed 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 How many Children do You have: 2 Feels Safe at Home: Yes Childhood Exposure to Second-Hand Smoke: No Diet: regular caffeine: Yes Dental Care, Regularly: No Physical Activity Frequency: Daily Seatbelt Use: always Sunscreen Use: Yes (sometimes) Assistive Devices: Cane, Glasses and Walker Allergies Allergies Allergy/AdvReac Type Severity Reaction Status Date / Time methylprednisolone AdvReac Severe Psychosis Verified 06/15/23 21:56 ciprofloxacin [From Cipro] AdvReac Intermediate nausea Verified 06/15/23 21:56 erythromycin base AdvReac Intermediate VOMITTING Verified 06/15/23 21:56 Macrolide Antibiotics AdvReac Intermediate STOMACH Verified 06/15/23 21:56 UPSET Home Meds Home Medications Medication Instructions Recorded Confirmed cyanocobalamin (vitamin B-12) 1,000 mcg sublingual QAM 05/03/20 06/15/23 1,000 mcg sublingual lozenge latanoprost 0.005 % eye drops 1 drp ophthalmic (eye) HS 10/22/21 06/15/23 diclofenac sodium 1 % topical gel 2 g topical QID PRN Pain 05/09/23 06/15/23 (Arthritis Pain (diclofenac)) venlafaxine 75 mg capsule,extended 75 mg PO HS 05/09/23 06/15/23 release 24 hr buspirone 15 mg tablet 15 mg PO TID 06/15/23 06/15/23 dagwbfhqgk-eehbnljdkpasp-axvljqar 1 - 2 tab PO DIRECTED PRN pain 06/15/23 06/15/23 50 mg-325 mg-40 mg tablet cyclosporine 0.05 % eye drops in a 1 drp OPB Q12H 06/15/23 06/15/23 dropperette (Restasis) ketoconazole 2 % topical cream 1 applic topical BID PRN FLARE UPS 06/15/23 06/15/23 peg 400-propylene glycol 0.4 %-0.3 1 drp OPB QID 06/15/23 06/15/23 % eye drops (Systane (propylene glycol)) Previous Rx's Medication Instructions Recorded compression stockings #1 ea 05/13/22 wheeled walker with seat #1 ea 07/22/22 levothyroxine 50 mcg tablet 50 mcg PO QAM #30 tabs 02/25/23 lisinopril 10 mg tablet 10 mg PO QAM #90 tabs 02/25/23 meclizine 25 mg tablet 25 mg PO TID PRN motion sickness 02/25/23 #30 tabs pantoprazole 40 mg tablet,delayed 40 mg PO QAM #30 tabs 02/25/23 release potassium chloride 10 mEq 10 meq PO QAM #30 tabs 02/25/23 tablet,extended release (Klor-Con) tamsulosin 0.4 mg capsule 0.4 mg PO HS #30 caps 02/25/23 valacyclovir 500 mg tablet 500 mg PO HS #90 tabs 03/08/23 amitriptyline 50 mg tablet 50 mg PO HS #30 tabs 04/21/23 venlafaxine 150 mg 150 mg PO QAM #90 caps 04/21/23 capsule,extended release 24 hr verapamil 240 mg 24 hr 240 mg PO HS 30 days #30 caps 04/21/23 capsule,extended release fluticasone propionate 50 1 spray intranasal QAM PRN Allergy 05/02/23 mcg/actuation nasal Symptoms #16 grams spray,suspension clonazepam 0.5 mg tablet 0.5 mg PO TID #90 tabs 05/30/23 Results & Data (ED) Vital Signs Vital Signs - 24 hr 06/15/23 20:23 06/15/23 20:23 06/15/23 20:30 Temperature 36.8 C Temperature Source Oral Pulse Rate 64 60 Pulse Rate [Apical] 64 Pulse Rate from SpO2 Sensor Pulse Rhythm Regular Pulse Rhythm [Apical] Regular Pulse Strength Normal Pulse Strength [Apical] Normal Respiratory Rate 20 20 Respiratory Effort / Characteristics Non-Labored Non-Labored Respiratory Depth Normal Normal Respiratory Pattern Regular Regular Blood Pressure 200/98 H Blood Pressure [Right Arm] 200/98 H Blood Pressure Mean 132 Blood Pressure Mean [Right Arm] 132 Blood Pressure Position Lying Pulse Oximetry 95 95 Oxygen Delivery Method Room Air Room Air Sepsis Recent Fever Within 48 Hours No Sepsis New/Unexplained Change in Mental Status No Sepsis Action Taken by Nursing No Action Required 06/15/23 22:00 06/15/23 23:00 06/15/23 23:44 Temperature Temperature Source Pulse Rate 57 L Pulse Rate [Apical] 58 L Pulse Rate from SpO2 Sensor 57 L Pulse Rhythm Pulse Rhythm [Apical] Pulse Strength Pulse Strength [Apical] Respiratory Rate 17 16 Respiratory Effort / Characteristics Non-Labored Spontaneous Respiratory Depth Normal Respiratory Pattern Blood Pressure 140/73 138/81 Blood Pressure [Right Arm] 150/85 H Blood Pressure Mean 109 108 Blood Pressure Mean [Right Arm] 106 Blood Pressure Position Pulse Oximetry 95 94 Oxygen Delivery Method Room Air Room Air Sepsis Recent Fever Within 48 Hours Sepsis New/Unexplained Change in Mental Status Sepsis Action Taken by Nursing 06/16/23 00:00 06/16/23 00:48 06/16/23 00:30 Temperature Temperature Source Pulse Rate 53 L 60 57 L Pulse Rate [Apical] Pulse Rate from SpO2 Sensor 53 L 57 L Pulse Rhythm Pulse Rhythm [Apical] Pulse Strength Pulse Strength [Apical] Respiratory Rate 19 13 Respiratory Effort / Characteristics Respiratory Depth Respiratory Pattern Blood Pressure 149/84 H 134/78 Blood Pressure [Right Arm] Blood Pressure Mean 115 101 Blood Pressure Mean [Right Arm] Blood Pressure Position Pulse Oximetry 97 97 Oxygen Delivery Method Room Air Room Air Sepsis Recent Fever Within 48 Hours Sepsis New/Unexplained Change in Mental Status Sepsis Action Taken by Nursing Laboratory Data 06/15/23 21:34 06/15/23 21:34 Lab Results 06/15/23 06/15/23 06/15/23 Range/Units 21:34 21:34 21:34 WBC 4.95 (4.8-10.8) K/ul RBC 4.02 L (4.20-5.40) M/uL Hgb 12.5 (12.0-16.0) g/dl Hct 36.1 L (37.0-47.0) % MCV 89.8 (80.0-100.0) fL MCH 31.1 (25.0-34.0) pg MCHC 34.6 (32.0-36.0) g/dL RDW Std Deviation 44.5 (36.4-46.3) fL RDW Coeff of Ana 13.5 (11.5-14.5) % Plt Count 266 (130-400) K/uL MPV 8.5 L (9.4-12.4) fL Immature Gran % (Auto) 0.2 % Neut % (Auto) 51.1 % Lymph % (Auto) 37.0 % [place] % (Auto) 8.5 % Eos % (Auto) 2.4 % Baso % (Auto) 0.8 % Neut # (Auto) 2.53 (1.40-6.50) K/uL Lymph # (Auto) 1.83 (1.2-3.4) K/uL [place] # (Auto) 0.42 (0.11-0.59) K/uL Eos # (Auto) 0.12 (0-0.50) K/uL Baso # (Auto) 0.04 (0-0.2) K/uL Immature Gran # (Auto) 0.01 (0.01-0.20) K/uL PT 10.7 (9.0-12.0) Seconds INR 1.0 (0.9-1.1) APTT 27.6 (21.0-31.0) Seconds PTT Ratio 1.0 Sodium 134 L (136-145) mmol/L Potassium 4.8 (3.5-5.1) mmol/L Chloride 101 (98-107) mmol/L Carbon Dioxide 27 (21-32) mmol/L Anion Gap 6 (3-11) BUN 10 (6-23) mg/dl Creatinine 0.87 (0.6-1.2) mg/dl Est Cr Clr Drug Dosing 52.6 ml/min Est GFR ( Amer) 80.5 ml/min Est GFR (Non-Af Amer) 69.4 ml/min BUN/Creatinine Ratio 11.5 (10-20) Glucose 95 (70-99(Fasting)) mg/dl Calcium 9.8 (8.6-10.3) mg/dl Magnesium 2.1 (1.7-2.4) mg/dl Total Bilirubin 0.3 (0.2-1.0) mg/dl AST 18 (13-39) U/L ALT 15 (7-52) U/L Alkaline Phosphatase 94 (34-104) U/L Troponin I High Sens 9.0 (0-14) pg/ml Total Protein 7.3 (6.0-8.3) gm/dl Albumin 4.5 (3.4-5.0) gm/dl Globulin 2.8 (2.5-4.0) gm/dl Albumin/Globulin Ratio 1.6 (0.9-2) Administered Medications Discontinued Medications Aspirin (Aspirin Chew 324 Mg) 324 mg PO NOW STA Stop: 06/15/23 23:49 Last Admin: 06/16/23 00:11 Dose: 324 mg Documented By: DALLIN Clonazepam (Clonazepam 0.5 Mg Tab) 0.5 mg PO NOW STA Stop: 06/16/23 01:15 Last Admin: 06/16/23 01:19 Dose: 0.5 mg Documented By: DALLIN Ioversol (Ioversol 350 Mg 125ml Prefilled Syringe) 117 ml IV ONCE ONE Stop: 06/15/23 22:33 Last Admin: 06/15/23 22:32 Dose: 117 ml Documented By: BRYANNA Morphine Sulfate (Morphine Sulfate 4 Mg/Ml 1 Ml Carp\\Vial) 4 mg IV NOW STA Stop: 06/15/23 20:43 Last Admin: 06/15/23 21:12 Dose: 4 mg Documented By: JOE Ondansetron HCl (Ondansetron Inj 2 Mg/Ml 2 Ml Vial) 4 mg IV NOW STA Stop: 06/15/23 20:43 Last Admin: 06/15/23 21:12 Dose: 4 mg Documented By: JOE Imaging Data Radiologist's Impression: Head CT 06/15/23 20:42 Exam(s): CT HEAD Without Contrast EXAM: CT Head Without Intravenous Contrast CLINICAL HISTORY: Reason for exam: neuro deficit, acute stroke suspected. TECHNIQUE: Axial computed tomography images of the head/brain without intravenous contrast. CTDI is 38.03 mGy and DLP is 546.36 mGy-cm. Automated exposure control was utilized for the study. A dose lowering technique was utilized adhering to the principles of ALARA. COMPARISON: 05/09/2023. FINDINGS: Brain: Mild generalized brain atrophy. Decreased attenuation within the periventricular and deep white matter compatible with microangiopathic white matter disease. No hemorrhage. Ventricles: Unremarkable. No ventriculomegaly. Bones/joints: Unremarkable. No acute fracture. Soft tissues: Unremarkable. Sinuses: Unremarkable as visualized. No acute sinusitis. Mastoid air cells: Unremarkable as visualized. No mastoid effusion. IMPRESSION: Chronic changes as described. No acute intracranial hemorrhage or space-occupying lesion. Electronically signed by: Dorita Lopez MD 06/15/23 23:12 PM Head CTA 06/15/23 20:42 Exam(s): CTA HEAD With Contrast IV Amt: 117ML OPTIRAY 350 EXAM: CT Angiography Head With Intravenous Contrast CLINICAL HISTORY: Reason for exam: neuro deficit, acute stroke suspected. TECHNIQUE: Axial computed tomographic angiography images of the head with intravenous contrast. CTDI is 38.03 mGy and DLP is 546.36 mGy-cm. Automated exposure control was utilized for the study. A dose lowering technique was utilized adhering to the principles of ALARA. MIP reconstructed images were created and reviewed. CONTRAST: Patient received 117ML OPTIRAY 350 of IV contrast COMPARISON: None. FINDINGS: Right internal carotid artery: No acute findings. Intracranial segment is patent with no significant stenosis. No aneurysm. Right anterior cerebral artery: Unremarkable. No occlusion or significant stenosis. No aneurysm. Right middle cerebral artery: Unremarkable. No occlusion or significant stenosis. No aneurysm. Right posterior cerebral artery: Unremarkable. No occlusion or significant stenosis. No aneurysm. Right vertebral artery: Unremarkable as visualized. Left internal carotid artery: No acute findings. Intracranial segment is patent with no significant stenosis. No aneurysm. Left anterior cerebral artery: Unremarkable. No occlusion or significant stenosis. No aneurysm. Left middle cerebral artery: Unremarkable. No occlusion or significant stenosis. No aneurysm. Left posterior cerebral artery: Unremarkable. No occlusion or significant stenosis. No aneurysm. Left vertebral artery: Unremarkable as visualized. Basilar artery: Unremarkable. No occlusion or significant stenosis. No aneurysm. IMPRESSION: Negative CT angiogram of the brain with no evidence of focal stenosis, occlusion or aneurysm involving the [place]. Electronically signed by: Dorita Lopez MD 06/15/23 23:16 PM Neck CTA 06/15/23 20:42 Exam(s): CTA NECK With Contrast IV Amt: 117ML OPTIRAY 350 EXAM: CT Angiography Neck With Intravenous Contrast CLINICAL HISTORY: Reason for exam: neuro deficit, acute stroke suspected. TECHNIQUE: Routine carotid CT angiography protocol was performed with intravenous contrast. NASCET criteria using the distal ICAs for comparison were used for evaluation of stenoses. CTDI is 11.35 mGy and DLP is 423.37 mGy-cm. Automated exposure control was utilized for the study. A dose lowering technique was utilized adhering to the principles of ALARA. MIP reconstructed images were created and reviewed. CONTRAST: Patient received 117ML OPTIRAY 350 of IV contrast COMPARISON: 07/23/2022. FINDINGS: VASCULATURE: Right common carotid artery: Unremarkable. No occlusion or significant stenosis. No dissection. Right internal carotid artery: Mild calcified plaque in the proximal right internal carotid artery with less than 50% diameter stenosis. No dissection. Right external carotid artery: Unremarkable. No occlusion. Right vertebral artery: Unremarkable. No occlusion or significant stenosis. No dissection. Left common carotid artery: Unremarkable. No occlusion or significant stenosis. No dissection. Left internal carotid artery: Mild calcified plaque within the proximal left internal carotid artery with less than 50% diameter stenosis. No dissection. Left external carotid artery: Unremarkable. No occlusion. Left vertebral artery: Dominant left-sided vertebral artery otherwise normal bilateral vertebral arteries. No occlusion or significant stenosis. No dissection. Aorta: Mild atherosclerotic disease throughout the aortic arch with no dissection or aneurysm. Mild calcified atherosclerotic disease throughout the origin of the left subclavian artery. NECK: Bones/joints: Unremarkable. Soft tissues: Unremarkable. Lung apices: Clear. CAROTID STENOSIS REFERENCE USING NASCET CRITERIA: % ICA stenosis = (1 - narrowest ICA diameter/diameter of distal cervical ICA) x 100. Mild - <50% stenosis. Moderate - 50-69% stenosis. Severe - 70-94% stenosis. Near occlusion - 95-99% stenosis. Occluded - 100% stenosis. IMPRESSION: Mild calcified plaque in the proximal bilateral internal carotid arteries otherwise no significant stenosis, occlusion or dissection involving the bilateral carotid and vertebral arteries. Electronically signed by: Dorita Lopez MD 06/15/23 23:14 PM Discharge Plan Visit Data Chief Complaint: Headache Stated Complaint: Headache, R Sided Numbness ED Provider: Adithya Ball Discharge Problem: Numbness Forms Stand Alone Forms: [facility] Prescriptions Prescriptions: No Action tamsulosin 0.4 mg capsule 0.4 mg PO HS Qty: 30 11RF Rx Instructions: TAKE 1 CAPSULE BY MOUTH DAILY potassium chloride [Klor-Con 10] 10 mEq tablet extended release 10 meq PO QAM Qty: 30 11RF meclizine 25 mg tablet 25 mg PO TID PRN (Reason: motion sickness) Qty: 30 3RF levothyroxine 50 mcg tablet 50 mcg PO QAM Qty: 30 11RF Rx Instructions: TAKE 1 TABLET DAILY. lisinopril 10 mg tablet 10 mg PO QAM Qty: 90 1RF pantoprazole 40 mg tablet,delayed release (DR/EC) 40 mg PO QAM Qty: 30 11RF valacyclovir 500 mg tablet 500 mg PO HS Qty: 90 4RF amitriptyline 50 mg tablet 50 mg PO HS Qty: 30 2RF venlafaxine 150 mg capsule,extended release 24hr 150 mg PO QAM Qty: 90 1RF verapamil 240 mg capsule,ext rel. pellets 24 hr 240 mg PO HS 30 Days Qty: 30 5RF clonazepam 0.5 mg tablet 0.5 mg PO TID Qty: 90 0RF Rx Instructions: temp increase (DME) compression stockings See Rx Instructions .Route .MEDSUPPLY Qty: 1 0RF Rx Instructions: As directed fluticasone propionate 50 mcg/actuation spray,suspension 1 spray intranasal QAM PRN (Reason: Allergy Symptoms) Qty: 16 3RF (DME) wheeled walker with seat See Rx Instructions .Route .MEDSUPPLY Qty: 1 0RF Rx Instructions: As directed cyanocobalamin (vitamin B-12) 1,000 mcg Lozenge 1,000 mcg SUBLINGUAL QAM venlafaxine 75 mg capsule,extended release 24hr 75 mg PO HS diclofenac sodium [Arthritis Pain (diclofenac)] 1 % gel 2 g topical QID PRN (Reason: Pain) Rx Instructions: apply to low back pain latanoprost 0.005 % drops 1 drp ophthalmic (eye) HS cyclosporine [Restasis] 0.05 % Dropperette 1 drp OPB Q12H Systane (propylene glycol) 0.4-0.3 % Drops 1 drp OPB QID xslqivwipd-vtvjmbhvsnftv-pszp 50-325-40 mg tablet 1 - 2 tab PO DIRECTED PRN (Reason: pain) Rx Instructions: every 4- 5 hours as needed for severe headache. No more than 2-3 days per week, max 6 tabs in 24 hours ketoconazole 2 % cream 1 applic topical BID PRN (Reason: FLARE UPS) buspirone 15 mg tablet 15 mg PO TID Referrals Referrals: Stacey Aguero MD [Primary Care Provider] -
[2023-06-15 21:46] LABS: Basophils # (auto) 0.04 K/uL (0-0.2); Basophils % (auto) 0.8 %; Eosinophils # (auto) 0.12 K/uL (0-0.50); Eosinophils % (auto) 2.4 %; Hematocrit (blood only) 36.1 % (37.0-47.0); Hemoglobin 12.5 g/dl (12.0-16.0); Immature Granulocytes # (auto) 0.01 K/uL (0.01-0.20); Immature Granulocytes % (auto) 0.2 %; Lymphocytes # (auto) 1.83 K/uL (1.2-3.4); Mean Corpuscular Hemoglobin 31.1 pg (25.0-34.0); Mean Corpuscular Hgb Conc 34.6 g/dL (32.0-36.0); Mean Corpuscular Volume 89.8 fL (80.0-100.0); Mean Platelet Volume 8.5 fL (9.4-12.4); Monocytes # (auto) 0.42 K/uL (0.11-0.59); Monocytes % (auto) 8.5 %; Neutrophils # (auto) 2.53 K/uL (1.40-6.50); Neutrophils % (auto) 51.1 %; Platelet Count 266 K/uL (130-400); RDW Coefficient of Variation 13.5 % (11.5-14.5); RDW Standard Deviation 44.5 fL (36.4-46.3); Red Blood Count 4.02 M/uL (4.20-5.40); White Blood Count 4.95 K/ul (4.8-10.8)
[2023-06-15 22:03] LABS: Albumin Globulin Ratio 1.6 (0.9-2); Albumin Level 4.5 gm/dl (3.4-5.0); BUN Creatinine Ratio 11.5 (10-20); Bilirubin,Total 0.3 mg/dl (0.2-1.0); Calcium 9.8 mg/dl (8.6-10.3); Creatinine Clr Calc Pharmacy 52.6 ml/min; Est GFR (African American) 80.5 ml/min; Est GFR (Non-African American) 69.4 ml/min; Globulin 2.8 gm/dl (2.5-4.0); Magnesium 2.1 mg/dl (1.7-2.4); Potassium 4.8 mmol/L (3.5-5.1); Total Protein 7.3 gm/dl (6.0-8.3)
[2023-06-15 22:23] LABS: Partial Thromboplastin Time 27.6 Seconds (21.0-31.0); Prothrombin Time 10.7 Seconds (9.0-12.0)
[2023-06-15] MEDS ORDERED: IOVERSOL 350 MG 125mL Prefilled Syringe IV ONE (22:32)
--- NOTE | 2023-06-15 23:13 | CT Scan Report ---
Exam(s): CT HEAD Without Contrast EXAM: CT Head Without Intravenous Contrast CLINICAL HISTORY: Reason for exam: neuro deficit, acute stroke suspected. TECHNIQUE: Axial computed tomography images of the head/brain without intravenous contrast. CTDI is 38.03 mGy and DLP is 546.36 mGy-cm. Automated exposure control was utilized for the study. A dose lowering technique was utilized adhering to the principles of ALARA. COMPARISON: 05/09/2023. FINDINGS: Brain: Mild generalized brain atrophy. Decreased attenuation within the periventricular and deep white matter compatible with microangiopathic white matter disease. No hemorrhage. Ventricles: Unremarkable. No ventriculomegaly. Bones/joints: Unremarkable. No acute fracture. Soft tissues: Unremarkable. Sinuses: Unremarkable as visualized. No acute sinusitis. Mastoid air cells: Unremarkable as visualized. No mastoid effusion. IMPRESSION: Chronic changes as described. No acute intracranial hemorrhage or space-occupying lesion. Electronically signed by: Dorita Lopez MD 06/15/23 23:12 PM
--- NOTE | 2023-06-15 23:15 | CT Scan Report ---
Exam(s): CTA NECK With Contrast IV Amt: 117ML OPTIRAY 350 EXAM: CT Angiography Neck With Intravenous Contrast CLINICAL HISTORY: Reason for exam: neuro deficit, acute stroke suspected. TECHNIQUE: Routine carotid CT angiography protocol was performed with intravenous contrast. NASCET criteria using the distal ICAs for comparison were used for evaluation of stenoses. CTDI is 11.35 mGy and DLP is 423.37 mGy-cm. Automated exposure control was utilized for the study. A dose lowering technique was utilized adhering to the principles of ALARA. MIP reconstructed images were created and reviewed. CONTRAST: Patient received 117ML OPTIRAY 350 of IV contrast COMPARISON: 07/23/2022. FINDINGS: VASCULATURE: Right common carotid artery: Unremarkable. No occlusion or significant stenosis. No dissection. Right internal carotid artery: Mild calcified plaque in the proximal right internal carotid artery with less than 50% diameter stenosis. No dissection. Right external carotid artery: Unremarkable. No occlusion. Right vertebral artery: Unremarkable. No occlusion or significant stenosis. No dissection. Left common carotid artery: Unremarkable. No occlusion or significant stenosis. No dissection. Left internal carotid artery: Mild calcified plaque within the proximal left internal carotid artery with less than 50% diameter stenosis. No dissection. Left external carotid artery: Unremarkable. No occlusion. Left vertebral artery: Dominant left-sided vertebral artery otherwise normal bilateral vertebral arteries. No occlusion or significant stenosis. No dissection. Aorta: Mild atherosclerotic disease throughout the aortic arch with no dissection or aneurysm. Mild calcified atherosclerotic disease throughout the origin of the left subclavian artery. NECK: Bones/joints: Unremarkable. Soft tissues: Unremarkable. Lung apices: Clear. CAROTID STENOSIS REFERENCE USING NASCET CRITERIA: % ICA stenosis = (1 - narrowest ICA diameter/diameter of distal cervical ICA) x 100. Mild - <50% stenosis. Moderate - 50-69% stenosis. Severe - 70-94% stenosis. Near occlusion - 95-99% stenosis. Occluded - 100% stenosis. IMPRESSION: Mild calcified plaque in the proximal bilateral internal carotid arteries otherwise no significant stenosis, occlusion or dissection involving the bilateral carotid and vertebral arteries. Electronically signed by: Dorita Lopez MD 06/15/23 23:14 PM
--- NOTE | 2023-06-15 23:17 | CT Scan Report ---
Exam(s): CTA HEAD With Contrast IV Amt: 117ML OPTIRAY 350 EXAM: CT Angiography Head With Intravenous Contrast CLINICAL HISTORY: Reason for exam: neuro deficit, acute stroke suspected. TECHNIQUE: Axial computed tomographic angiography images of the head with intravenous contrast. CTDI is 38.03 mGy and DLP is 546.36 mGy-cm. Automated exposure control was utilized for the study. A dose lowering technique was utilized adhering to the principles of ALARA. MIP reconstructed images were created and reviewed. CONTRAST: Patient received 117ML OPTIRAY 350 of IV contrast COMPARISON: None. FINDINGS: Right internal carotid artery: No acute findings. Intracranial segment is patent with no significant stenosis. No aneurysm. Right anterior cerebral artery: Unremarkable. No occlusion or significant stenosis. No aneurysm. Right middle cerebral artery: Unremarkable. No occlusion or significant stenosis. No aneurysm. Right posterior cerebral artery: Unremarkable. No occlusion or significant stenosis. No aneurysm. Right vertebral artery: Unremarkable as visualized. Left internal carotid artery: No acute findings. Intracranial segment is patent with no significant stenosis. No aneurysm. Left anterior cerebral artery: Unremarkable. No occlusion or significant stenosis. No aneurysm. Left middle cerebral artery: Unremarkable. No occlusion or significant stenosis. No aneurysm. Left posterior cerebral artery: Unremarkable. No occlusion or significant stenosis. No aneurysm. Left vertebral artery: Unremarkable as visualized. Basilar artery: Unremarkable. No occlusion or significant stenosis. No aneurysm. IMPRESSION: Negative CT angiogram of the brain with no evidence of focal stenosis, occlusion or aneurysm involving the [place]. Electronically signed by: Dorita Lopez MD 06/15/23 23:16 PM
[2023-06-15] MEDS ORDERED: ASPIRIN CHEW 324 MG PO STA (23:48)
--- NOTE | 2023-06-16 00:14 | History & Physical Report ---
Date of Service June 16, 2023 Assessment & Plan (1) Hypertension: Plan: 67 yo female with PMHx hemiplegic migraines, chronic gait disorder, cerebrovascular disease, frequent falls, depression, anxiety, hypothyroidism, HTN, and GERD presents with stroke like symptoms. #Stroke like symptoms #Cerebrovascular disease, chronic #Gait disorder, chronic #Frequent falls -presented with R face/arm numbness and weakness in the evening. Weakness resolved a few hours later but still with some numbness. She has had episodes such as this in the past without evidence of stroke on imaging although she does have chronic moderately extensive confluent and multifocal white matter hyperintensity likely consistent with age advanced cerebrovascular disease. She follows with [facility]. Ddx CVA, TIA, hemiplegic migraine. She was given ASA 324mg in ED. -CT head unremarkable -CTA head/neck unremarkable -MRI brain pending -echo pending -a1c, lipids pending; she is statin intolerant. Previous labs have been normal. -neuro checks, PT/OT, speech, NPO #H/o migraines, chronic -cont. amitriptyline, verapamil #Depression #Anxiety -cont. buspar, ativan, venlafaxine #HTN -cont. lisinopril, verapamil #Hypothyroidism -cont. levothyroxine #GERD -cont. pantoprazole DVT ppx: SCDs; anticipate short hospital stay FEN/GI: NPO, NSS @ 100 Code Status: DNR/DNI Dispo: PCU, obs (2) GERD (gastroesophageal reflux disease): (3) Hypothyroidism: (4) Depression with anxiety: (5) Gait disorder: (6) Complicated migraine with status migrainosus: (7) Headache, hemiplegic migraine: History of Present Illness Chief Complaint: stroke like symptoms Primary Care Provider: Stacey Aguero MD 67 yo female with PMHx hemiplegic migraines, chronic gait disorder, cerebrovascular disease, frequent falls, depression, anxiety, hypothyroidism, HTN, and GERD presents with stroke like symptoms. Around 630pm patient started feeling her whole face flushed and sob with subsequent R sided facial numbness/weakness which extended down her R neck to her R UE. Her weakness improved a few hours later while in the ED but still with some residual R sided numbness. Also now with R sided headache which started hours after symptoms started. She does have a h/o ?hemiplegic migraines. Denies fever, fatigue, vision changes, chest pain, abd pain, N/V/D, dysuria, LE numbness/weakness. She has reported similar symptoms in the distant past but per records brain MRI has only shown persistent small vessel disease without obvious CVA. She does follow with [facility] and was seen last week during that hospitalization. Neurology stated her chronic symptoms not compatible with Parkinsons. Allergies Allergy/AdvReac Type Severity Reaction Status Date / Time methylprednisolone AdvReac Severe Psychosis Verified 06/15/23 21:56 ciprofloxacin [From Cipro] AdvReac Intermediate nausea Verified 06/15/23 21:56 erythromycin base AdvReac Intermediate VOMITTING Verified 06/15/23 21:56 Macrolide Antibiotics AdvReac Intermediate STOMACH Verified 06/15/23 21:56 UPSET Home Medications Medication Instructions Recorded Confirmed Type cyanocobalamin (vitamin B-12) 1,000 mcg sublingual QAM 05/03/20 06/15/23 History 1,000 mcg sublingual lozenge latanoprost 0.005 % eye drops 1 drp ophthalmic (eye) HS 10/22/21 06/15/23 History compression stockings #1 ea 05/13/22 05/16/23 Rx wheeled walker with seat #1 ea 07/22/22 05/16/23 Rx levothyroxine 50 mcg tablet 50 mcg PO QAM #30 tabs 02/25/23 06/15/23 Rx lisinopril 10 mg tablet 10 mg PO QAM #90 tabs 02/25/23 06/15/23 Rx meclizine 25 mg tablet 25 mg PO TID PRN motion sickness 02/25/23 06/15/23 Rx #30 tabs pantoprazole 40 mg tablet,delayed 40 mg PO QAM #30 tabs 02/25/23 06/15/23 Rx release potassium chloride 10 mEq 10 meq PO QAM #30 tabs 02/25/23 06/15/23 Rx tablet,extended release (Klor-Con) tamsulosin 0.4 mg capsule 0.4 mg PO HS #30 caps 02/25/23 06/15/23 Rx valacyclovir 500 mg tablet 500 mg PO HS #90 tabs 03/08/23 06/15/23 Rx amitriptyline 50 mg tablet 50 mg PO HS #30 tabs 04/21/23 06/15/23 Rx venlafaxine 150 mg 150 mg PO QAM #90 caps 04/21/23 06/15/23 Rx capsule,extended release 24 hr verapamil 240 mg 24 hr 240 mg PO HS 30 days #30 caps 04/21/23 06/15/23 Rx capsule,extended release fluticasone propionate 50 1 spray intranasal QAM PRN Allergy 05/02/23 06/15/23 Rx mcg/actuation nasal Symptoms #16 grams spray,suspension diclofenac sodium 1 % topical gel 2 g topical QID PRN Pain 05/09/23 06/15/23 History (Arthritis Pain (diclofenac)) venlafaxine 75 mg capsule,extended 75 mg PO HS 05/09/23 06/15/23 History release 24 hr clonazepam 0.5 mg tablet 0.5 mg PO TID #90 tabs 05/30/23 06/15/23 Rx [id number]-otczxdstcjubf-lxofptjb 1 - 2 tab PO DIRECTED PRN pain 06/15/23 06/15/23 History 50 mg-325 mg-40 mg tablet cyclosporine 0.05 % eye drops in a 1 drp OPB Q12H 06/15/23 06/15/23 History dropperette (Restasis) ketoconazole 2 % topical cream 1 applic topical BID PRN FLARE UPS 06/15/23 06/15/23 History peg 400-propylene glycol 0.4 %-0.3 1 drp OPB QID 06/15/23 06/15/23 History % eye drops (Systane (propylene glycol)) buspirone 15 mg tablet 15 mg PO TID #90 tabs 06/16/23 Rx Past Med/Surg History Medical History (Updated 06/16/23 @ 01:29 by Adithya Ball DO) Achalasia, esophageal Acid reflux Anemia Anemia Arthralgia of multiple sites Cervical radiculopathy Depression with anxiety Esophageal dysmotility GERD (gastroesophageal reflux disease) Glaucoma History of anesthesia reaction unsure of the medication drug; reports getting a locked jaw after a surgery (~1979's) (unsure if it was vein stripping surgery or hysterectomy) History of COVID-19 Aug 17, 2020. no current issues History of shingles takes valtrex daily. no active shingles currently Hx of venous thrombosis and embolism (09/20/11) unsure of exact date. related to HRT. placed on anticoagulant since. Hypertension Hypothyroidism Irritable bowel syndrome (09/20/11) Memory impairment mild - alert and oriented x3 Migraine Nausea and vomiting after administration of anesthetic agent Old myocardial infarct (09/20/11) no stents -- no current cardiology, follows with pcp On anticoagulant therapy Osteoarthritis of hands, bilateral Osteoarthritis of right knee Palpitations "irreegular heart beat" Parkinson disease Peripheral edema Restless legs syndrome (09/20/11) Stroke migraine stroke (unsure of date -- within the last 7 years (since 2014) -> deficits include mild/minor dementia, finding right words, memory loss, right arm and leg weakness. follows with [facility]. Stroke October 22, 2021 -> treated at [facility]. right side weakness. December 21, 2021 Stroke-like symptoms Tear of medial meniscus of right knee Transient ischemic attack (TIA) August 2021. Vertigo Surgical History H/O ovarian cystectomy H/O rectocele repair cystocele and rectocele H/O varicose vein ligation and stripping History of appendectomy History of cardiac cath [facility]. no stents History of colonoscopy History of esophagogastroduodenoscopy (EGD) History of laparoscopy Hx of cataract extraction RT. S/P total abdominal hysterectomy with BSO Family History Mother Myocardial infarction Other No family history of adverse response to anesthesia Denies family history of Ovarian cancer Prostate cancer Breast cancer Colorectal cancer Social History Smoking Status: Never smoker Second Hand Exposure: No; Do You Dip or Chew Tobacco: No; Hx Alcohol Use: No Hx Substance Use: No Preferred Language: Yi Communication Ability: Effective Visual Impairment: No Limitations Concreting Supervisor Required: No Beliefs That Will Affect Care: Jewish marital status: / Current Living Situation: Alone current occupational status: employed 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 AOx3. Vitals as above. HEENT: No scleral injection or discharge.Moist mucous membranes. Neck: Supple without lymphadenopathy or thyromegaly. Trachea midline. Lungs: Clear to auscultation bilaterally with good effort. No wheezes/rale s/rhonchi Cardiac: Regular rate and rhythm.No murmurs.No extremity edema. 2+ distal peripheral pulses. Abdomen: Bowel sounds present. Soft, nontender, and nondistended.No guarding. No hepatosplenomegaly. MSK: No cyanosis or clubbing. Extremities motor strength 5/5. Skin: No abnormal rashes, warm, dry. Neurologic: Grossly intact motor cranial nerves. Does have decreased sensation on R face and R hand when compared with the left. Does have mild chronic R sided facial droop. No dysarthria. PERRL. Results & Data Results & Data Vital Signs (Past 12 Hours) Vital Signs Temp Pulse Pulse Resp BP BP Pulse Ox 06/16/23 00:00 53 L 19 149/84 H 97 06/15/23 23:44 138/81 06/15/23 23:00 57 L 16 140/73 94 06/15/23 22:00 58 L 17 150/85 H 95 06/15/23 20:30 60 06/15/23 20:23 64 20 200/98 H 95 06/15/23 20:23 36.8 C 64 20 200/98 H 95 O2 Del Method 06/16/23 00:00 Room Air 06/15/23 23:44 06/15/23 23:00 Room Air 06/15/23 22:00 Room Air 06/15/23 20:30 06/15/23 20:23 Room Air 06/15/23 20:23 Room Air Laboratory Results Laboratory Results WBC 4.95 K/ul (4.8-10.8) 06/15/23 21:34 RBC 4.02 M/uL (4.20-5.40) L 06/15/23 21:34 Hgb 12.5 g/dl (12.0-16.0) 06/15/23 21:34 Hct 36.1 % (37.0-47.0) L 06/15/23 21:34 MCV 89.8 fL (80.0-100.0) 06/15/23: MCH 31.1 pg (25.0-34.0) 06/15/23: MCHC 34.6 g/dL (32.0-36.0) 06/15/23: RDW Std Deviation 44.5 fL (36.4-46.3) 06/15/23 21: RDW Coeff of Ana 13.5 % (11.5-14.5) 06/15/23: Plt Count 266 K/uL (130-400) 06/15/23: MPV 8.5 fL (9.4-12.4) L 06/15/23: Immature Gran % (Auto) 0.2 % 06/15/23 21: Neut % (Auto) 51.1 % 06/15/23 21:34 Lymph % (Auto) 37.0 % 06/15/23 21:34 Ector % (Auto) 8.5 % 06/15/23 21:34 Eos % (Auto) 2.4 % 06/15/23:34 Baso % (Auto) 0.8 % 06/15/23: Neut # (Auto) 2.53 K/uL (1.40-6.50) 06/15/23 21: Lymph # (Auto) 1.83 K/uL (1.2-3.4) 06/15/23 21:34 Ector # (Auto) 0.42 K/uL (0.11-0.59) 06/15/23 21:34 Eos # (Auto) 0.12 K/uL (0-0.50) 06/15/23 21:34 Baso # (Auto) 0.04 K/uL (0-0.2) 06/15/23: Immature Gran # (Auto) 0.01 K/uL (0.01-0.20) 06/15/23 21: PT 10.7 Seconds (9.0-12.0) 06/15/23 21:34 INR 1.0 (0.9-1.1) 06/15/23 21:34 APTT 27.6 Seconds (21.0-31.0) 06/15/23 21:34 PTT Ratio 1.0 06/15/23 21:34 Sodium 134 mmol/L (136-145) L 06/15/23 21:34 Potassium 4.8 mmol/L (3.5-5.1) 06/15/23 21:34 Chloride 101 mmol/L (98-107) 06/15/23 21:34 Carbon Dioxide 27 mmol/L (21-32) 06/15/23 21:34 Anion Gap 6 (3-11) 06/15/23 21:34 BUN 10 mg/dl (6-23) 06/15/23 21:34 Creatinine 0.87 mg/dl (0.6-1.2) 06/15/23 21:34 Est Cr Clr Drug Dosing 52.6 ml/min 06/15/23 21:34 Est GFR ( Amer) 80.5 ml/min 06/15/23 21:34 Est GFR (Non-Af Amer) 69.4 ml/min 06/15/23 21:34 BUN/Creatinine Ratio 11.5 (10-20) 06/15/23 21:34 Glucose 95 mg/dl (70-99(Fasting)) 06/15/23 21:34 Calcium 9.8 mg/dl (8.6-10.3) 06/15/23 21:34 Magnesium 2.1 mg/dl (1.7-2.4) 06/15/23 21:34 Total Bilirubin 0.3 mg/dl (0.2-1.0) 06/15/23 21:34 AST 18 U/L (13-39) 06/15/23 21:34 ALT 15 U/L (7-52) 06/15/23 21:34 Alkaline Phosphatase 94 U/L (34-104) 06/15/23 21:34 Troponin I High Sens 9.0 pg/ml (0-14) 06/15/23 21:34 Total Protein 7.3 gm/dl (6.0-8.3) 06/15/23 21:34 Albumin 4.5 gm/dl (3.4-5.0) 06/15/23 21:34 Globulin 2.8 gm/dl (2.5-4.0) 06/15/23 21:34 Albumin/Globulin Ratio 1.6 (0.9-2) 06/15/23 21:[address] 06/15/23 20:42 Exam(s): CT HEAD Without Contrast EXAM: CT Head Without Intravenous Contrast CLINICAL HISTORY: Reason for exam: neuro deficit, acute stroke suspected. TECHNIQUE: Axial computed tomography images of the head/brain without intravenous contrast. CTDI is 38.03 mGy and DLP is 546.36 mGy-cm. Automated exposure control was utilized for the study. A dose lowering technique was utilized adhering to the principles of ALARA. COMPARISON: 05/09/2023. FINDINGS: Brain: Mild generalized brain atrophy. Decreased attenuation within the periventricular and deep white matter compatible with microangiopathic white matter disease. No hemorrhage. Ventricles: Unremarkable. No ventriculomegaly. Bones/joints: Unremarkable. No acute fracture. Soft tissues: Unremarkable. Sinuses: Unremarkable as visualized. No acute sinusitis. Mastoid air cells: Unremarkable as visualized. No mastoid effusion. IMPRESSION: Chronic changes as described. No acute intracranial hemorrhage or space-occupying lesion. Electronically signed by: Dorita Lopez MD 06/15/23 23:12 PM Head CTA 06/15/23 20:42 Exam(s): CTA HEAD With Contrast IV Amt: 117ML OPTIRAY 350 EXAM: CT Angiography Head With Intravenous Contrast CLINICAL HISTORY: Reason for exam: neuro deficit, acute stroke suspected. TECHNIQUE: Axial computed tomographic angiography images of the head with intravenous contrast. CTDI is 38.03 mGy and DLP is 546.36 mGy-cm. Automated exposure control was utilized for the study. A dose lowering technique was utilized adhering to the principles of ALARA. MIP reconstructed images were created and reviewed. CONTRAST: Patient received 117ML OPTIRAY 350 of IV contrast COMPARISON: None. FINDINGS: Right internal carotid artery: No acute findings. Intracranial segment is patent with no significant stenosis. No aneurysm. Right anterior cerebral artery: Unremarkable. No occlusion or significant stenosis. No aneurysm. Right middle cerebral artery: Unremarkable. No occlusion or significant stenosis. No aneurysm. Right posterior cerebral artery: Unremarkable. No occlusion or significant stenosis. No aneurysm. Right vertebral artery: Unremarkable as visualized. Left internal carotid artery: No acute findings. Intracranial segment is patent with no significant stenosis. No aneurysm. Left anterior cerebral artery: Unremarkable. No occlusion or significant stenosis. No aneurysm. Left middle cerebral artery: Unremarkable. No occlusion or significant stenosis. No aneurysm. Left posterior cerebral artery: Unremarkable. No occlusion or significant stenosis. No aneurysm. Left vertebral artery: Unremarkable as visualized. Basilar artery: Unremarkable. No occlusion or significant stenosis. No aneurysm. IMPRESSION: Negative CT angiogram of the brain with no evidence of focal stenosis, occlusion or aneurysm involving the [place]. Electronically signed by: Dorita Lopez MD 06/15/23 23:16 PM Neck CTA 06/15/23 20:42 Exam(s): CTA NECK With Contrast IV Amt: 117ML OPTIRAY 350 EXAM: CT Angiography Neck With Intravenous Contrast CLINICAL HISTORY: Reason for exam: neuro deficit, acute stroke suspected. TECHNIQUE: Routine carotid CT angiography protocol was performed with intravenous contrast. NASCET criteria using the distal ICAs for comparison were used for evaluation of stenoses. CTDI is 11.35 mGy and DLP is 423.37 mGy-cm. Automated exposure control was utilized for the study. A dose lowering technique was utilized adhering to the principles of ALARA. MIP reconstructed images were created and reviewed. CONTRAST: Patient received 117ML OPTIRAY 350 of IV contrast COMPARISON: 07/23/2022. FINDINGS: VASCULATURE: Right common carotid artery: Unremarkable. No occlusion or significant stenosis. No dissection. Right internal carotid artery: Mild calcified plaque in the proximal right internal carotid artery with less than 50% diameter stenosis. No dissection. Right external carotid artery: Unremarkable. No occlusion. Right vertebral artery: Unremarkable. No occlusion or significant stenosis. No dissection. Left common carotid artery: Unremarkable. No occlusion or significant stenosis. No dissection. Left internal carotid artery: Mild calcified plaque within the proximal left internal carotid artery with less than 50% diameter stenosis. No dissection. Left external carotid artery: Unremarkable. No occlusion. Left vertebral artery: Dominant left-sided vertebral artery otherwise normal bilateral vertebral arteries. No occlusion or significant stenosis. No dissection. Aorta: Mild atherosclerotic disease throughout the aortic arch with no dissection or aneurysm. Mild calcified atherosclerotic disease throughout the origin of the left subclavian artery. NECK: Bones/joints: Unremarkable. Soft tissues: Unremarkable. Lung apices: Clear. CAROTID STENOSIS REFERENCE USING NASCET CRITERIA: % ICA stenosis = (1 - narrowest ICA diameter/diameter of distal cervical ICA) x 100. Mild - <50% stenosis. Moderate - 50-69% stenosis. Severe - 70-94% stenosis. Near occlusion - 95-99% stenosis. Occluded - 100% stenosis. IMPRESSION: Mild calcified plaque in the proximal bilateral internal carotid arteries otherwise no significant stenosis, occlusion or dissection involving the bilateral carotid and vertebral arteries. Electronically signed by: Dorita Lopez MD 06/15/23 23:14 PM Supervising Physician Co-Signing Physician Notes Attending addendum: I have physically seen this patient, have supervised the medical residents activities, and agree with the H&P unless as otherwise noted. Assessment and Plan: Strokelike symptoms/Chronic cerebrovascular disease- The patient will be admitted to telemetry for serial cardiac enzymes, serial EKG's, cardiac rhythm monitoring and a 2-D echocardiogram with Dopplers. CT head negative CTA head neck negative MRI brain pending Stroke without tPA order set Consult PT/OT/speech N.p.o. until cleared by speech therapy Check hemoglobin A1c and fasting lipid panel Chronic migraines/depression/anxiety- Resume amitriptyline, verapamil, BuSpar, Ativan and venlafaxine when cleared by speech therapy Hypertension- Resume lisinopril and verapamil with hold parameters when able to take p.o. Hydralazine 10 mg IV every 4 hours as needed systolic blood pressure greater than 180-200 remaining orders and notations as noted Resident Activity Tracking Resident Involvement: Resident Care Provided Care Provided: Adult [facility]
[2023-06-16] MEDS ORDERED: clonazePAM 0.5 MG TAB PO STA (01:14)
[2023-06-16] MEDS ORDERED: PHARMACIST DISCHARGE MED REC CONSULT PRN (01:43)
[2023-06-16] MEDS ORDERED: ONDANSETRON INJ 2 MG/ML 2 ML VIAL IV PRN (01:43)
[2023-06-16] MEDS: SODIUM CHLORIDE 0.9% 1000ML 1,000 ML IV SCH ×3 (02:10→22:10)
[2023-06-16] MEDS: ACETAMINOPHEN 1,000 MG/100 ML VIAL IV PRN ×2 (04:02→21:25)
[2023-06-16 04:20] LABS: Basophils # (auto) 0.05 K/uL (0-0.2); Eosinophils # (auto) 0.14 K/uL (0-0.50); Eosinophils % (auto) 2.9 %; Hemoglobin 12.2 g/dl (12.0-16.0); Immature Granulocytes # (auto) 0.02 K/uL (0.01-0.20); Immature Granulocytes % (auto) 0.4 %; Lymphocytes # (auto) 1.85 K/uL (1.2-3.4); Lymphocytes % (auto) 38.5 %; Mean Corpuscular Hemoglobin 31.2 pg (25.0-34.0); Mean Corpuscular Hgb Conc 34.9 g/dL (32.0-36.0); Mean Corpuscular Volume 89.5 fL (80.0-100.0); Mean Platelet Volume 8.7 fL (9.4-12.4); Monocytes # (auto) 0.47 K/uL (0.11-0.59); Monocytes % (auto) 9.8 %; Neutrophils # (auto) 2.28 K/uL (1.40-6.50); Neutrophils % (auto) 47.4 %; Platelet Count 249 K/uL (130-400); RDW Coefficient of Variation 13.5 % (11.5-14.5); RDW Standard Deviation 44.4 fL (36.4-46.3); Red Blood Count 3.91 M/uL (4.20-5.40); White Blood Count 4.81 K/ul (4.8-10.8)
[2023-06-16 04:35] LABS: BUN Creatinine Ratio 11.1 (10-20); Calcium 9.1 mg/dl (8.6-10.3); Chol HDL Ratio 5.7 (0-5); Creatinine Clr Calc Pharmacy 50.9 ml/min; Est GFR (African American) 77.2 ml/min; Est GFR (Non-African American) 66.6 ml/min; Magnesium 2.1 mg/dl (1.7-2.4); Potassium 4.1 mmol/L (3.5-5.1)
[2023-06-16 04:51] LABS: Thyroid Stimulating Hormone 4.595 uIu/ml (0.300-4.500)
[2023-06-16 05:26] LABS: T4 Free Thyroxine 0.8 ng/dl (0.61-1.60)
[2023-06-16] MEDS: LEVOTHYROXINE SODIUM 50 MCG TABLET PO SCH (07:09)
--- NOTE | 2023-06-16 07:44 | Magnetic Resonance Report ---
MRI OF THE BRAIN WITHOUT CONTRAST CLINICAL HISTORY: Right arm and facial numbness. Evaluate for stroke. COMPARISON STUDY: MRI of the brain May 10, 2023. Head CT and CTA of the head June 15, 2023. TECHNIQUE: Utilizing a 1.5 Cindy magnet and dedicated coil, multiplanar, multiecho imaging of the bra in was performed without IV contrast. FINDINGS: There are no foci of restricted diffusion to suggest acute infarct. No acute intracranial h emorrhage, midline shift or mass effect is present. Ventricular system is stable. Basal cisterns are patent. There are no extra-axial collections. Flow-voids for the major intracranial vessels are prese nt. No intracranial masses identified on this unenhanced study. White matter T2 hyperintense foci are similar to MRI May 10, 2023. Appearance of the brain is unchanged since that exam. There is no evid ence for sinusitis. There is no mastoid fluid. IMPRESSION: No acute intracranial findings. No change in appearance of the brain since MRI of April 152022. ACT 112: Negative or not required by law. Electronically signed by: Nathaniel Hamilton M.D. 06/16/2023 7:43 AM
[2023-06-16 08:04] LABS: Estimated Average Glucose 128 mg/dl; Hemoglobin A1C 6.1 % (4.5-5.6)
[2023-06-16] MEDS: busPIRone 15 MG TAB PO SCH ×3 (09:08→22:09)
[2023-06-16] MEDS: VENLAFAXINE HCL XR 150 MG CAPXR PO SCH (09:09)
[2023-06-16] MEDS: lisinopril 10 MG TAB PO SCH (09:09)
[2023-06-16] MEDS: PANTOprazole 40 MG TAB PO SCH (09:09)
[2023-06-16] MEDS: clonazePAM 0.5 MG TAB PO SCH ×3 (09:09→22:09)
[2023-06-16] MEDS ORDERED: KETOROLAC TROMETHAMINE 15 MG/ML VIAL IV ONE (10:14)
[2023-06-16] MEDS ORDERED: diphenhydrAMINE 50 MG/ML VIAL IV STA (10:14)
[2023-06-16] MEDS ORDERED: BUTALBITAL/ACETAMIN/CAFFEINE TAB PO PRN (14:14)
--- NOTE | 2023-06-16 17:17 | XCELERA ---
[id number] [id number]___[id number]
[2023-06-16] MEDS: ARTIFICIAL TEARS OPB SCH (17:36)
[2023-06-16] MEDS ORDERED: VENLAFAXINE HCL XR 75 MG CAPXR PO SCH (21:00)
[2023-06-16] MEDS ORDERED: LATANOPROST 0.005% OP SOLN 2.5 ML BTL OP SCH (21:00)
[2023-06-16] MEDS ORDERED: TAMSULOSIN HCL 0.4 MG CAP PO SCH (21:00)
[2023-06-16] MEDS ORDERED: AMITRIPTYLINE HCL 50 MG TAB PO SCH (21:00)
[2023-06-16] MEDS ORDERED: VERAPAMIL HCL 240 MG TABCR PO SCH (21:00)
--- NOTE | 2023-06-17 00:54 | Billing Data ---
Date of Service June 17, 2023 Coding Level of Care Code 21243 INT INP/OBS CARE
[2023-06-17] MEDS: ARTIFICIAL TEARS OPB SCH (01:32)
[2023-06-17] MEDS: LEVOTHYROXINE SODIUM 50 MCG TABLET PO SCH (06:15)
[2023-06-17 06:50] LABS: Basophils # (auto) 0.06 K/uL (0-0.2); Basophils % (auto) 1.3 %; Eosinophils # (auto) 0.26 K/uL (0-0.50); Eosinophils % (auto) 5.8 %; Hematocrit (blood only) 34.8 % (37.0-47.0); Immature Granulocytes # (auto) 0.01 K/uL (0.01-0.20); Immature Granulocytes % (auto) 0.2 %; Lymphocytes # (auto) 1.57 K/uL (1.2-3.4); Lymphocytes % (auto) 35.2 %; Mean Corpuscular Hemoglobin 31.3 pg (25.0-34.0); Mean Corpuscular Hgb Conc 34.5 g/dL (32.0-36.0); Mean Corpuscular Volume 90.9 fL (80.0-100.0); Mean Platelet Volume 8.6 fL (9.4-12.4); Monocytes # (auto) 0.41 K/uL (0.11-0.59); Monocytes % (auto) 9.2 %; Neutrophils # (auto) 2.15 K/uL (1.40-6.50); Neutrophils % (auto) 48.3 %; Platelet Count 254 K/uL (130-400); RDW Coefficient of Variation 13.2 % (11.5-14.5); RDW Standard Deviation 44.3 fL (36.4-46.3); Red Blood Count 3.83 M/uL (4.20-5.40); White Blood Count 4.46 K/ul (4.8-10.8)
[2023-06-17 07:11] LABS: BUN Creatinine Ratio 16.1 (10-20); Calcium 8.8 mg/dl (8.6-10.3); Creatinine Clr Calc Pharmacy 47.2 ml/min; Est GFR (African American) 59.3 ml/min; Est GFR (Non-African American) 51.1 ml/min; Potassium 4.8 mmol/L (3.5-5.1)
--- NOTE | 2023-06-17 08:39 | Neurology Consultation ---
Date of Consultation June 17, 2023 Assessment & Plan (1) Complicated migraine: (2) Gait disorder: (3) Hypertension: (4) Hypothyroidism: (5) Memory impairment: Plan this patient has a longstanding history of intermittent classic migraine headaches. They involve more recently to common migraines however she has had a complicated (hemiplegic) migraine in the recent past. The symptoms of June 15 are consistent with a complicated migraine. MRI of the brain shows no stroke. It does show moderate old small vessel ischemic disease. The patient has a gait disorder felt to be secondary to her vascular [employer] changes. She does not, in my opinion, have any evidence of Parkinson's disease or parkinsonism. She is not rigid, bradykinetic, or with a rest tremor. Gait does not appear to be a Parkinson's gait Today. Patient has some mild (only) cognitive impairment likely secondary to her vascular disease. She has hypertension and was markedly elevated on admission. Recently, the verapamil has controlled her vasospasm but, most likely, the hypertension trigge red this complicated migraine. She has hypothyroidism not adequately controlled. Recommendations: 1. continue with clopidogrel 75 mg daily to prevent new stroke TIA. This is not listed on her medicine but the patient states that she takes it. This could be cleared up with Dr. Neely As an outpatient. 2. Recommend increasing levothyroxine to 75 mcg daily and rechecking TSH in 2-3 months. This also could be deferred to outpatient with her PCP. Controlling her thyroid disease more tightly could help with decreasing headaches. 3. The patient has an elevated cholesterol with cannot tolerate statins. Other medication for lipid control could be considered. This would decrease risk of stroke as well. 4. Control blood pressure as you are doing a me for a mean arterial pressure of 95-100. Verapamil is my drug of choice to prevent vasospasm. 5. I am not a fan of the combination of amitriptyline (a tricyclic ) and high doses of venlafaxine ( which also becomes like a tricyclic at higher doses). I will not make any changes but this could be addressed as an outpatient. 6. her glucose has been fairly well controlled and hemoglobin A1c is 6.1. 7. Follow up with Dr. Neely and her PCP as an outpatient. Please contact me if I can be of further assistance on this case. Overall, I spent a total of 90 minutes with this case including review of records, review of MRI films, direct evaluation the patient at bedside, report generation, and discussion of the case with the patient and RN at bedside and Dr. Beatty, including differential diagnosis and treatment options. History of Present Illness Reason for Consultation: patient is a 67-year-old, who I was asked to see the request of Dr. Beatty, for neurologic consultation regarding headaches and other issues. Requesting Physician: Dr. Beatty Attending Physician: Royal Beatty MD History of Present Illness the patient has a longstanding history of migraines. She started getting these in her late 20s after hysterectomy. They have varied over time but tends did to be classic migraines with visual aura followed by headache. More recently she was put on Ajovy for a couple years and this really decreased her headaches. For some reason she had been taken off Ajovy ( possible side effects). Over the last year she has been getting migrainous event perhaps once every 1-2 months. She would not get any auras now and there would be no triggers. She would start with a headache of a stabbing throbbing nature either bi occipitally, radiating around to bifrontally or perhaps 1 side of the head. She does not get nausea or vomiting anymore but still gets photophobia and phonophobia. Fioricet, as needed, does help. She has a history of hypertension and this is helped with verapamil ( which also prevents vaso spasm/migraine) and lisinopril. she has a history of hypothyroidism on levothyroxine 50 mcg daily The patient has been having anxiety and depression for years since the of her . She is currently on buspirone (15 mg 3 times a day), clonazepam (0.5 mg 3 times a day), amitriptyline (50 mg each evening ), and venlafaxine ( 225 mg each evening). In addition, the patient has a gait disturbance and has been labeled with Parkinson's. Dr. Neely, in his most recent note May 10, 2023, says there is no evidence of Parkinson's disease and that her gait disturbance is likely secondary to vascular changes. She has known old small vessel ischemic disease cerebrally. she will use a cane or walker for support. She can fall. On June 15, she was in her usual state of good health when at noon time she had a typical headache on the top of her head. She tolerated this throughout the afternoon and by 1729, she noted tingling of the right face including lips nose and cheek, the right side of the neck, and the right upper extremity diffusely. This numbness and tingling had no pain and there was no weakness on that side. The headache was still going on. She read the emergency room June 15 at 8:23 p.m., with a temperature of 36.8, pulse 64 regular, respiratory rate 20, blood pressure 200/98, and O2 saturation 95%. Her neurologic examination was unremarkable without focal findings. EKG showed sinus bradycardia. the numbness and tingling last most of the day June 15 and was gone by June 16 (and has not returned). CBC and Chem profile were largely unremarkable. Magnesium was normal. CT scan of the head was unremarkable for acute changes. CT angiography of the head showed no vascular stenoses or anomalies. CT angiography of the neck revealed some plaque without significant stenosis in the proximal internal carotid arteries bilaterally. MRI of the brain revealed no acute stroke. There was no change in the old (moderate) small vessel ischemic disease compared to May 10, 2023. she has mild atrophy. I reviewed all of these films. Echocardiogram was largely unremarkable. Laboratory studies also revealed hemoglobin A1c of 6.1, triglycerides 137, and total cholesterol of 304. The patient has a history of intolerance / side effects to statins. Repeat CBC and Chem profile were normal. TSH was elevated at 4.59. Repeat blood pressure today was 134/84 and she is in sinus rhythm in the 70s. Today her headache is mild (4/10) and Fioricet has helped. She has no numbness or tingling . She denies vision problems, cognitive changes, or any weakness or numbness of the arms or legs. Allergies Allergy/AdvReac Type Severity Reaction Status Date / Time methylprednisolone AdvReac Severe Psychosis Verified 06/15/23 21:56 ciprofloxacin [From Cipro] AdvReac Intermediate nausea Verified 06/15/23 21:56 erythromycin base AdvReac Intermediate VOMITTING Verified 06/15/23 21:56 Macrolide Antibiotics AdvReac Intermediate STOMACH Verified 06/15/23 21:56 UPSET Home Medications Medication Instructions Recorded Confirmed Type cyanocobalamin (vitamin B-12) 1,000 mcg sublingual QAM 05/03/20 06/15/23 History 1,000 mcg sublingual lozenge latanoprost 0.005 % eye drops 1 drp ophthalmic (eye) HS 10/22/21 06/15/23 History compression stockings #1 ea 05/13/22 05/16/23 Rx wheeled walker with seat #1 ea 07/22/22 05/16/23 Rx levothyroxine 50 mcg tablet 50 mcg PO QAM #30 tabs 02/25/23 06/15/23 Rx lisinopril 10 mg tablet 10 mg PO QAM #90 tabs 02/25/23 06/15/23 Rx meclizine 25 mg tablet 25 mg PO TID PRN motion sickness 02/25/23 06/15/23 Rx #30 tabs pantoprazole 40 mg tablet,delayed 40 mg PO QAM #30 tabs 02/25/23 06/15/23 Rx release potassium chloride 10 mEq 10 meq PO QAM #30 tabs 02/25/23 06/15/23 Rx tablet,extended release (Klor-Con) tamsulosin 0.4 mg capsule 0.4 mg PO HS #30 caps 02/25/23 06/15/23 Rx valacyclovir 500 mg tablet 500 mg PO HS #90 tabs 03/08/23 06/15/23 Rx amitriptyline 50 mg tablet 50 mg PO HS #30 tabs 04/21/23 06/15/23 Rx venlafaxine 150 mg 150 mg PO QAM #90 caps 04/21/23 06/15/23 Rx capsule,extended release 24 hr verapamil 240 mg 24 hr 240 mg PO HS 30 days #30 caps 04/21/23 06/15/23 Rx capsule,extended release fluticasone propionate 50 1 spray intranasal QAM PRN Allergy 05/02/23 06/15/23 Rx mcg/actuation nasal Symptoms #16 grams spray,suspension diclofenac sodium 1 % topical gel 2 g topical QID PRN Pain 05/09/23 06/15/23 History (Arthritis Pain (diclofenac)) venlafaxine 75 mg capsule,extended 75 mg PO HS 05/09/23 06/15/23 History release 24 hr clonazepam 0.5 mg tablet 0.5 mg PO TID #90 tabs 05/30/23 06/15/23 Rx zvvilsjgdy-fjckxxtnsnkhk-ejnckgpe 1 - 2 tab PO DIRECTED PRN pain 06/15/23 06/15/23 History 50 mg-325 mg-40 mg tablet cyclosporine 0.05 % eye drops in a 1 drp OPB Q12H 06/15/23 06/15/23 History dropperette (Restasis) ketoconazole 2 % topical cream 1 applic topical BID PRN FLARE UPS 06/15/23 06/15/23 History peg 400-propylene glycol 0.4 %-0.3 1 drp OPB QID 06/15/23 06/15/23 History % eye drops (Systane (propylene glycol)) buspirone 15 mg tablet 15 mg PO TID #90 tabs 06/16/23 Rx Patient History Medical History Achalasia, esophageal Acid reflux Anemia Anemia Arthralgia of multiple sites Cervical radiculopathy Depression with anxiety Esophageal dysmotility GERD (gastroesophageal reflux disease) Glaucoma History of anesthesia reaction unsure of the medication drug; reports getting a locked jaw after a surgery (~1979's) (unsure if it was vein stripping surgery or hysterectomy) History of COVID-19 Aug 17, 2020. no current issues History of shingles takes valtrex daily. no active shingles currently Hx of venous thrombosis and embolism (09/20/11) unsure of exact date. related to HRT. placed on anticoagulant since. Hypertension Hypothyroidism Irritable bowel syndrome (09/20/11) Memory impairment mild - alert and oriented x3 Migraine Nausea and vomiting after administration of anesthetic agent Old myocardial infarct (09/20/11) no stents -- no current cardiology, follows with pcp On anticoagulant therapy Osteoarthritis of hands, bilateral Osteoarthritis of right knee Palpitations "irreegular heart beat" Parkinson disease Peripheral edema Restless legs syndrome (09/20/11) Stroke migraine stroke (unsure of date -- within the last 7 years (since 2014) -> deficits include mild/minor dementia, finding right words, memory loss, right arm and leg weakness. follows with [place] [facility]. Stroke October 22, 2021 -> treated at [facility]. right side weakness. December 21, 2021 Stroke-like symptoms Tear of medial meniscus of right knee Transient ischemic attack (TIA) August 2021. Vertigo Surgical History H/O ovarian cystectomy H/O rectocele repair cystocele and rectocele H/O varicose vein ligation and stripping History of appendectomy History of cardiac cath [facility]. no stents History of colonoscopy History of esophagogastroduodenoscopy (EGD) History of laparoscopy Hx of cataract extraction RT. S/P total abdominal hysterectomy with BSO Family History Mother , age 81 of a stroke Myocardial infarction Stroke Heart disease Father , age 89 of a stroke Stroke Other No family history of adverse response to anesthesia Denies family history of Ovarian cancer Prostate cancer Breast cancer Colorectal cancer Social History (Updated 06/17/23 @ 08:53 by Naveed De Leon MD) Smoking Status: Never smoker Second Hand Exposure: No; Do You Dip or Chew Tobacco: No; Hx Alcohol Use: No Hx Substance Use: No Preferred Language: Azeri Communication Ability: Effective Visual Impairment: No Limitations [employer] Required: No Beliefs That Will Affect Care: Yazdanism marital status: / Current Living Situation: Alone current occupational status: retired 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 How many Children do You have: 2 Feels Safe at Home: Yes Childhood Exposure to Second-Hand Smoke: No Diet: regular caffeine: Yes Dental Care, Regularly: No Physical Activity Frequency: Daily Seatbelt Use: always Sunscreen Use: Yes (sometimes) Assistive Devices: Cane, Glasses and Walker Review of Systems Constitutional: no fever, no fatigue and no weakness Eyes: no diplopia, no eye pain and no worsening vision Ear, Nose, Mouth, Throat: no ear pain, no tinnitus, no hearing loss, no dizziness, no snoring, no hoarseness and no dysphagia Respiratory: no cough and no dyspnea Cardiovascular: no chest pain, no palpitations and no lightheadedness Gastrointestinal: no abdominal pain, no nausea and no vomiting Genitourinary: no dysuria, no urinary frequency and no urinary incontinence Musculoskeletal: no back pain, no neck pain, no radicular pain, no joint pain and no myalgia Integumentary: no rash and no lesions Neurologic: + gait abnormality and + headache(s); no localized weakness, no generalized weakness, no tingling, no numbness, no tremor(s), no abnormal movements, no abnormal speech, no confusion and no memory loss Psychiatric: no depression, no irritability, no anxiety, no difficulty concentrating, no confusion and no hallucinations Endocrine: no fatigue and no flushing Hematologic / Lymphatic: no easy bleeding and no easy bruising Allergy / Immunological: no urticaria and no problem reported Exam (Neuro) Physical Exam: The patient is right-handed. The patient is awake, alert, and attentive. Speech is normal without any aphasia or dysarthria. The patient can name objects, repeat phrases, and has normal spontaneous speech. Mentation and thought processes are intact, with orientation to person, place and time, and normal fund of knowledge. Attention and concentration are normal. Mood and affect are normal and appropriate. Gener al appearance and grooming are normal. Short and long-term memory are intact. Pupils are 4 mm bilaterally and reactive to light. Extraocular eye muscles are intact without nystagmus. Visual acuity and visual leigh seem normal grossly to confrontation. There are no deficits to sensation in the face in all 3 distributions of the fifth cranial nerve bilaterally. Corneal reflexes are positive bilaterally. Facial strength and symmetry was normal bilaterally. Hearing seems normal bilaterally. Palate moves well without asymmetry. There is normal sternocleidomastoid and trapezius (shoulder shrug) strength bilaterally. Tongue is midline with good strength bilaterally. Neck has a full range of motion without discomfort. There are no cervical bruits bilaterally. There are no cranial or ocular bruits. Heart is without murmur. There is a regular rhythm and rate. Cervical, thoracic, and lumbar spine are nontender to palpation. Gait is narrow based and very cautious. She has some decreased arm swing and turns very slowly , either needing a walker or the assistance of 1. stance with feet together is quite poor even with eyes open. With outstretched arms there is no drift. There are no resting, postural, or action tremors. There is no ataxia with finger to nose testing. There is good facility in the hands. No other abnormal involuntary movements are noted. Motor strength is 5/5 diffusely in the arms bilaterally including deltoids, biceps, triceps, brachioradialis, wrist flexors and extensors, rn house supervisor, and intrinsic hand muscles. Motor strength is 5/5 diffusely in the legs bilaterally including hip flexors, quadriceps, hamstrings, gastrocnemius, tibialis anterior, tibialis posterior, and Peroneii muscles. Toe extensors are normal and there is good bulk in the extensor digitorum brevis muscles bilaterally. The limbs have good tone without rigidity or spasticity. There is no atrophy noted in the muscles. Muscle bulk is normal, there is no tenderness to palpation, no myotonia to percussion, and no fasciculations seen. Sensory examination is intact to touch and pin throughout all 4 limbs diffusely. Reflexes are 2/4 in the biceps, triceps, brachioradialis, quadriceps, and A chilles tendons bilaterally. There is no clonus bilaterally. Toes are downgoing with plantar stimulation bilaterally. Peripheral pulses are present and of normal quality distally in all 4 limbs. T here is Mild peripheral edema noted in the ankles, left greater than right side. Results & Data Vital Signs (Past 12 Hours) Vital Signs Temp Pulse Pulse Resp BP Pulse Ox Pulse Ox 06/17/23 07:00 51 L 06/17/23 07:00 96 06/17/23 07:47 36.3 C L 67 19 134/84 92 06/17/23 03:00 36.3 C L 56 L 18 126/71 95 06/16/23 23:00 36.4 C L 54 L 18 161/78 H 94 06/16/23 22:56 54 L O2 Del Method O2 Del Method 06/17/23 07:00 06/17/23 07:00 Room Air 06/17/23 07:47 Room Air 06/17/23 03:00 Room Air 06/16/23 23:00 Room Air 06/16/23 22:56 PG Care Time/CCT Total # of Minutes Spent Total Time Spent with Patient: Total time spent is greater than 50% in coordination of care (as documented) at patient's floor/unit and/or counseling patient: Coding Level of Care Code 75583 INT INP/OBS CARE 3/75MIN Diagnoses Complicated migraine G43.109 Gait disorder R26.9 Hypertension I10 Hypothyroidism E03.9 Memory impairment R41.3 Time Spent (min) 90
[2023-06-17] MEDS: VENLAFAXINE HCL XR 150 MG CAPXR PO SCH (08:40)
[2023-06-17] MEDS: lisinopril 10 MG TAB PO SCH (08:40)
[2023-06-17] MEDS: busPIRone 15 MG TAB PO SCH (08:40)
[2023-06-17] MEDS: PANTOprazole 40 MG TAB PO SCH (08:42)
[2023-06-17] MEDS: clonazePAM 0.5 MG TAB PO SCH (08:42)
[2023-06-17] MEDS: SODIUM CHLORIDE 0.9% 1000ML 1,000 ML IV SCH (10:15)
--- NOTE | 2023-06-17 13:06 | Discharge Summary ---
Date of Service June 17, 2023 Admission HPI Per Admitting Provider 67 yo female with PMHx hemiplegic migraines, chronic gait disorder, cerebrovascular disease, frequent falls, depression, anxiety, hypothyroidism, HTN, and GERD presents with stroke like symptoms. Around 630pm patient started feeling her whole face flushed and sob with subsequent R sided facial numbness/weakness which extended down her R neck to her R UE. Her weakness improved a few hours later while in the ED but still with some residual R sided numbness. Also now with R sided headache which started hours after symptoms started. She does have a h/o ?hemiplegic migraines. Denies fever, fatigue, vision changes, chest pain, abd pain, N/V/D, dysuria, LE numbness/weakness. She has reported similar symptoms in the distant past but per records brain MRI has only shown persistent small vessel disease without obvious CVA. She does follow with [place] neurology and was seen last week during that hospitalization. Neurology stated her chronic symptoms not compatible with Parkinsons. Principal Diagnosis Complicated migraines Discharge Exam The patient is awake, alert and oriented 3, well developed and well nourished, normocephalic and atraumatic, lying in bed and in no acute distress. HEENT--PERRL, EOMI, mucous membranes and oropharynx mildly dry Neck--supple. No JVD. No bruits. Thyroid normal, trachea midline, no adenopathy. Heart--normal S1 and S2. No murmurs, rubs or gallops. Lungs--clear bilaterally, no respiratory distress, no accessory muscle use. Abdomen--normal bowel sounds and soft. Mild epigastric and left sided abdominal pain Extremities--no cyanosis or clubbing. No edema. Dermatologic--normal skin turgor, normal color, no abnormal lymph nodes, no rash. Neurologic--cranial nerves II through XII grossly intact. Rheumatologic--normal range of motion. Psychiatric--normal affect. Discharge Data Allergies Allergy/AdvReac Type Severity Reaction Status Date / Time methylprednisolone AdvReac Severe Psychosis Verified 06/15/23 21:56 ciprofloxacin [From Cipro] AdvReac Intermediate nausea Verified 06/15/23 21:56 erythromycin base AdvReac Intermediate VOMITTING Verified 06/15/23 21:56 Macrolide Antibiotics AdvReac Intermediate STOMACH Verified 06/15/23 21:56 UPSET Consultations 06/15/23 23:48 ED Decision to Admit Stat 06/16/23 14:14 Consult Neurology Routine Ordered Studies 06/15/23 20:42 CT angio head w con Stat CT angio neck with con Stat CT head/brain wo con Stat 06/16/23 01:43 MR brain wo con Routine Hospital Course (1) Complicated migraine with status migrainosus: Patient has a history of migraines, complicated migraine is the most likely reason for her symptoms of continued headache with aura and facial numbness CT scan of the head and CTA head and neck did not show any acute pathology. MRI brain also did not show any evidence of acute stroke. Has been evaluated by neurology, usually follows up with Dr. Hensley outpatient We will watch to continue following up with him (2) Hypertension: Blood pressures under good control 134/84 Continue home medications. (3) GERD (gastroesophageal reflux disease): (4) Hypothyroidism: (5) Depression with anxiety: (6) Gait disorder: (7) Headache, hemiplegic migraine: (8) Complicated migraine: Total Time Total Time Spent Total Time Spent (In Minutes): 35 minutes Discharge Plan Discharge Items Patient Disposition: Home - Self-Care Reason For Visit: STROKE LIKE SYMPTOMS Discharge Diagnosis: complicated migraine Activity: Resume your previous activity Non-emergency contact: Primary Care Provider and Neurologist Call non-emergency contact if: you have any medication questions and your symptoms worsen Follow-up/Referrals: Stacey Aguero MD [Primary Care Provider] - 06/21/23 11:30 am Ansley Jennings PA-C [Physician Tv Host] - 09/06/23 11:30 am Diet: Regular Addtl Attending Provider Instructions: please make appointment to follow up with your neurologist Pending Studies at Discharge: No Stand-Alone Forms: My [facility], Smoking Cessation Medications and DC Order Prescriptions: New levothyroxine [Synthroid] 50 mcg Tablet 75 mcg PO DAILYBB 30 Days Qty: 45 0RF Continued tamsulosin 0.4 mg capsule 0.4 mg PO HS Qty: 30 11RF Rx Instructions: TAKE 1 CAPSULE BY MOUTH DAILY potassium chloride [Klor-Con 10] 10 mEq tablet extended release 10 meq PO QAM Qty: 30 11RF meclizine 25 mg tablet 25 mg PO TID PRN (Reason: motion sickness) Qty: 30 3RF lisinopril 10 mg tablet 10 mg PO QAM Qty: 90 1RF pantoprazole 40 mg tablet,delayed release (DR/EC) 40 mg PO QAM Qty: 30 11RF valacyclovir 500 mg tablet 500 mg PO HS Qty: 90 4RF amitriptyline 50 mg tablet 50 mg PO HS Qty: 30 2RF venlafaxine 150 mg capsule,extended release 24hr 150 mg PO QAM Qty: 90 1RF verapamil 240 mg capsule,ext rel. pellets 24 hr 240 mg PO HS 30 Days Qty: 30 5RF clonazepam 0.5 mg tablet 0.5 mg PO TID Qty: 90 0RF Rx Instructions: temp increase buspirone 15 mg tablet 15 mg PO TID Qty: 90 8RF (DME) compression stockings See Rx Instructions .Route .MEDSUPPLY Qty: 1 0RF Rx Instructions: As directed fluticasone propionate 50 mcg/actuation spray,suspension 1 spray intranasal QAM PRN (Reason: Allergy Symptoms) Qty: 16 3RF (DME) wheeled walker with seat See Rx Instructions .Route .MEDSUPPLY Qty: 1 0RF Rx Instructions: As directed cyanocobalamin (vitamin B-12) 1,000 mcg Lozenge 1,000 mcg SUBLINGUAL QAM venlafaxine 75 mg capsule,extended release 24hr 75 mg PO HS diclofenac sodium [Arthritis Pain (diclofenac)] 1 % gel 2 g topical QID PRN (Reason: Pain) Rx Instructions: apply to low back pain latanoprost 0.005 % drops 1 drp ophthalmic (eye) HS cyclosporine [Restasis] 0.05 % Dropperette 1 drp OPB Q12H Systane (propylene glycol) 0.4-0.3 % Drops 1 drp OPB QID wvlahyiuas-qiwqiatwfgwey-snlz 50-325-40 mg tablet 1 - 2 tab PO DIRECTED PRN (Reason: pain) Rx Instructions: every 4- 5 hours as needed for severe headache. No more than 2-3 days per week, max 6 tabs in 24 hours ketoconazole 2 % cream 1 applic topical BID PRN (Reason: FLARE UPS) Discontinued levothyroxine 50 mcg tablet 50 mcg PO QAM Qty: 30 11RF Rx Instructions: TAKE 1 TABLET DAILY. Discharge Orders: Discharge Order (Routine); Ordered 06/17/23 Ordered By: oRyal Barragan/Other Patient Handouts: A1C, 5 Steps for Eating Healthier Admission Data Admit Date/Time: 06/16/23 01:13 Attending Provider: Royal Beatty Admit Provider: Herbert Gutierrez Primary Care Provider: Stacey Aguero Other Providers: Jonathan Dong ; Naveed De Leon Other Interventions: Discharge Summary Assessment (RN) Last Done: 06/17/23 09:51 Coding Level of Care Code 76310 INP/OBS DISCH >30 MIN Diagnoses Complicated migraine with status migrainosus G43.101 Hypertension I10 GERD (gastroesophageal reflux disease) K21.9 Hypothyroidism E03.9 Depression with anxiety F41.8 Gait disorder R26.9 Headache, hemiplegic migraine G43.409 Complicated migraine G43.109 Time Spent (min) 35
--- NOTE | 2023-06-17 20:08 | Electrocardiogram Report ---
Test Reason : Blood Pressure : / mmHG Vent. Rate : 062 BPM Atrial Rate : 062 BPM P-R Int : 176 ms QRS Dur : 078 ms QT Int : 410 ms P-R-T Axes : 043 026 060 degrees QTc Int : 416 ms Poor data quality, interpretation may be adversely affected Normal sinus rhythm Possible Left atrial enlargement Nonspecific ST abnormality Abnormal ECG When compared with ECG of 09-MAY-2023 18:22, No significant change was found Confirmed by Alfonso Ann ([id number]) on 06/17/2023 8:08:24 PM Referred By: REFERRED SELF Confirmed By:Alfonso Ann
--- NOTE | 2023-06-17 20:16 | Electrocardiogram Report ---
Test Reason : Blood Pressure : / mmHG Vent. Rate : 054 BPM Atrial Rate : 054 BPM P-R Int : 156 ms QRS Dur : 080 ms QT Int : 472 ms P-R-T Axes : 057 040 055 degrees QTc Int : 447 ms Sinus bradycardia Nonspecific ST abnormality Abnormal ECG When compared with ECG of 15-JUN-2023 20:20, No significant change was found Confirmed by Alfonso Ann ([id number]) on 06/17/2023 8:16:02 PM Referred By: REFERRED SELF Confirmed By:Alfonso Ann
== END 2023-06-17 13:10 | disposition home or self-care (01) ==
LOC: ED 20:07 → EDINP 20:07 → SUATTDRO 06-16 01:13 → 2S 06-16 01:43

== ENCOUNTER 2023-11-19 11:38 | Observation (INO) ==
--- NOTE | 2023-11-19 12:05 | Emergency Department Note ---
Impression & Plan Acute right-sided weakness, Headache, Visual disturbance ED Provider Note Name: JUAN LUIS VELASQUEZ Age: 67 Sex: Female Arrives Via: Walk-In Informant: Patient ED Provider: Yaniv Wilkerson MD Chief Complaint: strokelike symptoms Impression: as per impressions above Medical Decision Makin-year-old female arrives for evaluation of strokelike symptoms. Patient states she awoke this morning with right sided weakness and paresthesias associated with right visual changes and a headache. Similar to previous strokes but also similar to previous migraine headaches that have had stroke symptoms with them. States she had gone to bed last night feeling well. On evaluation patient does not have any significant weakness nor true neurodeficits appreciated on examination. She is uncomfortable appearing but not in extremis. Given symptoms were a wake-up stroke they have already been going on multiple hours and she notes some improvement in weakness I do not feel she would be a TNKase candidate. I did get a CT angiography which confirms no evidence of large vessel occlusion. Laboratory workup benign. She was at this point treated with migraine cocktail. She states she has had Decadron before without issue. In the setting of stroke symptoms and her history will have to bring her in for further management. Triage/Nursing Notes reviewed by Me Differential:Stroke, migraine, seizure, intracranial hemorrhage, dissection, electrolyte imbalance, many pathologies considered. Vital Signs: reviewed and remarkable for no significant abnormalities Interventions: Benadryl IV, Decadron IV, magnesium IV, Compazine IV, normal saline bolus Labs:ED labs Reviewed by me and remarkable for no significant abnormalities Imaging: CT of the head without contrast as per my informal interpretation reveals no intracranial hemorrhage or mass effect. Confirmed by radiologist. CT angiography of the head and cervical spine revealed no evidence of large vessel occlusion or dissection. This is per radiologist. EKG:As per my interpretation. Indication strokelike symptoms. Normal sinus rhythm at 62 bpm and a QTc of 416. There is no ectopy nor ischemia. When compared to EKG of June 16, 2023 there is no significant change Cardiac/Tele Monitoring: Cardiac Monitoring: An Order was placed for continuous cardiac monitoring. The monitor shows a rate of 60 with a normal sinus rhythm. Consults:Dr Octavio FONSECA Hospitalist Plan: Disposition:Hospitalization. Condition: Good History of Present Illness: 67-year-old female arrives for evaluation of weakness. Patient notes she awoke this morning with right-sided weakness. Associated with weakness in her right eye maybe her face. She states she is having trouble seeing out of her right eye. Associated with tingling throughout her entire right side of her body. The weakness has improved but she still has tingling. Patient with Parkinson's and states she is unsteady at baseline and follows regularly. She does not recall specific head injury recently. Patient states she does have a history of strokes and this feels similar but she also has history of migraines causing strokelike symptoms. No medication prior to arrival. Patient is on clopidogrel as antiplatelet medication no other anticoagulants. Past Medical History:See Below Home Medications:See Below Allergies:See Below Vitals:Blood Pressure: 127/74, Pulse 68, RR 20, T 36.6C, O2 96% on RA Physical Exam: GENERAL: Patient is mildly anxious appearing and in no acute distress. RESPIRATORY: No dyspnea. Clear to auscultation and equal bilaterally. CARDIOVASCULAR: Regular rate and rhythm.No murmur appreciated. GASTROINTESTINAL: Abdomen soft, non-tender, no peritonitis. EXTREMITIES: Normal motion all extremities, no cyanosis, no edema. NEUROLOGIC: Alert and oriented. Mild tremor. No focal neurologic deficits appreciated. Patient has intact cranial nerves. She has perceived decreased visual acuity in the right eye. She has perceived decreased sensation of the entire right side of her body. 5 out of 5 strength all 4 extremities. No ataxia appreciated. SKIN: No rash, no jaundice, no diaphoresis. PSYCH: Appropriate GCS: 15 ED Course: Times/Reassessments: Stable mildly improved agreeable to plan for hospitalization Yaniv Wilkerson MD Past Med/Surg History Medical History (Updated 11/19/23 @ 14:10 by Yaniv Wilkerson MD) Stroke-like symptoms Anemia Tear of medial meniscus of right knee Osteoarthritis of right knee Glaucoma History of shingles takes valtrex daily. no active shingles currently Vertigo Nausea and vomiting after administration of anesthetic agent On anticoagulant therapy Stroke October 22, 2021 -> treated at [facility]. right side weakness. December 21, 2021 Transient ischemic attack (TIA) August 2021. Stroke migraine stroke (unsure of date -- within the last 7 years (since 2014) -> deficits include mild/minor dementia, finding right words, memory loss, right arm and leg weakness. follows with CT Neurology. Parkinson disease History of COVID-19 Aug 17, 2020. no current issues History of anesthesia reaction unsure of the medication drug; reports getting a locked jaw after a surgery (~) (unsure if it was vein stripping surgery or hysterectomy) Hypertension GERD (gastroesophageal reflux disease) Palpitations "irreegular heart beat" Migraine Memory impairment mild - alert and oriented x3 Hypothyroidism Depression with anxiety Hx of venous thrombosis and embolism (09/20/11) unsure of exact date. related to HRT. placed on anticoagulant since. Irritable bowel syndrome (09/20/11) Old myocardial infarct (09/20/11) no stents -- no current cardiology, follows with pcp Restless legs syndrome (09/20/11) Peripheral edema Osteoarthritis of hands, bilateral Esophageal dysmotility Cervical radiculopathy Arthralgia of multiple sites Anemia Acid reflux Achalasia, esophageal Surgical History Hx of cataract extraction RT. History of cardiac cath [facility] Marie. no stents History of esophagogastroduodenoscopy (EGD) History of laparoscopy History of colonoscopy H/O varicose vein ligation and stripping S/P total abdominal hysterectomy with BSO H/O rectocele repair cystocele and rectocele H/O ovarian cystectomy History of appendectomy Family History Mother Myocardial infarction Stroke Heart disease Father Stroke Other No family history of adverse response to anesthesia Denies family history of Ovarian cancer Prostate cancer Breast cancer Colorectal cancer Social History Smoking Status: Never smoker Second Hand Exposure: No; Do You Dip or Chew Tobacco: No; Hx Alcohol Use: No Hx Substance Use: No Preferred Language: Mauritanian Communication Ability: Effective Visual Impairment: No Limitations Management Rep Required: No Beliefs That Will Affect Care: Hoahaoism marital status: / Current Living Situation: Alone current occupational status: retired 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 How many Children do You have: 2 Feels Safe at Home: Yes Childhood Exposure to Second-Hand Smoke: No Diet: regular caffeine: Yes Dental Care, Regularly: No Physical Activity Frequency: Daily Seatbelt Use: always Sunscreen Use: Yes (sometimes) Assistive Devices: Cane Allergies Allergies Allergy/AdvReac Type Severity Reaction Status Date / Time methylprednisolone AdvReac Severe Psychosis Verified 11/15/23 10:53 ciprofloxacin [From Cipro] AdvReac Intermediate nausea Verified 11/15/23 10:53 erythromycin base AdvReac Intermediate VOMITTING Verified 11/15/23 10:53 Macrolide Antibiotics AdvReac Intermediate STOMACH Verified 11/15/23 10:53 UPSET Home Meds Home Medications Medication Instructions Recorded Confirmed cyanocobalamin (vitamin B-12) 1,000 mcg sublingual QAM 05/03/20 11/19/23 1,000 mcg sublingual lozenge latanoprost 0.005 % eye drops 1 drp ophthalmic (eye) HS 10/22/21 11/19/23 pyifvmrxyd-gcwlulukgatsv-xxlhppza 1 - 2 tab PO DIRECTED PRN pain 06/15/23 11/19/23 50 mg-325 mg-40 mg tablet cyclosporine 0.05 % eye drops in a 1 drp OPB Q12H 06/15/23 11/19/23 dropperette (Restasis) ketoconazole 2 % topical cream 1 applic topical BID PRN FLARE UPS 06/15/23 11/19/23 peg 400-propylene glycol 0.4 %-0.3 1 drp OPB QID 06/15/23 11/19/23 % eye drops (Systane (propylene glycol)) Previous Rx's Medication Instructions Recorded compression stockings #1 ea 05/13/22 wheeled walker with seat #1 ea 07/22/22 amitriptyline 25 mg tablet 25 mg PO HS #90 tabs 08/23/23 buspirone 15 mg tablet 15 mg PO TID #90 tabs 08/23/23 clopidogrel 75 mg tablet 75 mg PO DAILY #90 tabs 08/23/23 diclofenac sodium 1 % topical gel 2 g topical QID PRN Pain #100 grams 08/23/23 (Arthritis Pain (diclofenac)) fluticasone propionate 50 1 spray intranasal QAM PRN Allergy 08/23/23 mcg/actuation nasal Symptoms #16 grams spray,suspension levothyroxine 75 mcg capsule 75 mcg PO DAILY #90 caps 08/23/23 lisinopril 10 mg tablet 10 mg PO QAM #90 tabs 08/23/23 meclizine 25 mg tablet 25 mg PO TID PRN motion sickness 08/23/23 #30 tabs potassium chloride 10 mEq 10 meq PO QAM #30 tabs 08/23/23 tablet,extended release (Klor-Con) tamsulosin 0.4 mg capsule 0.4 mg PO HS #90 caps 08/23/23 valacyclovir 500 mg tablet 500 mg PO HS #90 tabs 08/23/23 venlafaxine 150 mg 150 mg PO QAM #90 caps 08/23/23 capsule,extended release 24 hr venlafaxine 75 mg capsule,extended 75 mg PO HS #90 caps 08/23/23 release 24 hr verapamil 240 mg 24 hr 240 mg PO HS 30 days #30 caps 08/26/23 capsule,extended release sodium chloride 1,000 mg soluble 1,000 mg PO BID #60 tabs 10/20/23 tablet pantoprazole 40 mg tablet,delayed 40 mg PO BID #180 tabs 11/15/23 release tobramycin 0.3 % eye drops 1 drp ophthalmic (eye) Q4H 5 days 11/15/23 #5 mL clonazepam 0.5 mg tablet 0.5 mg PO TID #90 tabs 11/17/23 Results & Data (ED) Vital Signs Vital Signs - 24 hr 11/19/23 11:43 11/19/23 12:05 11/19/23 12:44 Temperature 36.6 C Temperature Source Temporal Artery Scan Pulse Rate 68 61 Pulse Rate [Apical] 56 L Pulse Rhythm [Apical] Pulse Strength [Apical] Respiratory Rate 20 18 Respiratory Effort / Characteristics Non-Labored Non-Labored Spontaneous Respiratory Depth Normal Normal Blood Pressure 127/74 Blood Pressure [Left Arm] 128/68 Blood Pressure Mean 91 Blood Pressure Mean [Left Arm] 88 Blood Pressure Position [Left Arm] Semi-fowlers Pulse Oximetry 96 95 Oxygen Delivery Method Room Air Room Air Sepsis Recent Fever Within 48 Hours No Sepsis New/Unexplained Change in Mental Status Yes Sepsis Action Taken by Nursing No Action Required 11/19/23 13:00 Temperature Temperature Source Pulse Rate Pulse Rate [Apical] 58 L Pulse Rhythm [Apical] Regular Pulse Strength [Apical] Normal Respiratory Rate 18 Respiratory Effort / Characteristics Non-Labored Spontaneous Respiratory Depth Normal Blood Pressure Blood Pressure [Left Arm] 116/75 Blood Pressure Mean Blood Pressure Mean [Left Arm] 88 Blood Pressure Position [Left Arm] Semi-fowlers Pulse Oximetry 95 Oxygen Delivery Method Room Air Sepsis Recent Fever Within 48 Hours Sepsis New/Unexplained Change in Mental Status Sepsis Action Taken by Nursing Laboratory Data 11/19/23 12:07 11/19/23 12:07 Lab Results 11/19/23 11/19/23 Range/Units 12:07 12:32 WBC 5.59 (4.8-10.8) K/ul RBC 3.81 L (4.20-5.40) M/uL Hgb 11.9 L (12.0-16.0) g/dl Hct 34.9 L (37.0-47.0) % MCV 91.6 (80.0-100.0) fL MCH 31.2 (25.0-34.0) pg MCHC 34.1 (32.0-36.0) g/dL RDW Std Deviation 42.8 (36.4-46.3) fL RDW Coeff of Ana 12.7 (11.5-14.5) % Plt Count 281 (130-400) K/uL MPV 9.1 L (9.4-12.4) fL Immature Gran % (Auto) 0.4 % Neut % (Auto) 62.8 % Lymph % (Auto) 27.0 % Wright % (Auto) 7.5 % Eos % (Auto) 1.8 % Baso % (Auto) 0.5 % Neut # (Auto) 3.51 (1.40-6.50) K/uL Lymph # (Auto) 1.51 (1.20-3.40) K/uL Wright # (Auto) 0.42 (0.11-0.59) K/uL Eos # (Auto) 0.10 (0.00-0.50) K/uL Baso # (Auto) 0.03 (0.00-0.20) K/uL Immature Gran # (Auto) 0.02 (0.01-0.20) K/uL PT 10.3 (9.0-12.0) Seconds INR 0.9 (0.9-1.1) Sodium 134 L (136-145) mmol/L Potassium 4.3 (3.5-5.1) mmol/L Chloride 101 (98-107) mmol/L Carbon Dioxide 25 (21-32) mmol/L Anion Gap 8 (3-11) BUN 13 (6-23) mg/dl Creatinine 0.85 (0.6-1.2) mg/dl Est Cr Clr Drug Dosing Not Reportable Est GFR ( Amer) 82.8 ml/min Est GFR (Non-Af Amer) 71.4 ml/min BUN/Creatinine Ratio 15.3 (10-20) Glucose 96 (70-99(Fasting)) mg/dl Calcium 9.1 (8.6-10.3) mg/dl Total Bilirubin 0.4 (0.2-1.0) mg/dl Direct Bilirubin 0.1 (0-0.2) mg/dl AST 17 (13-39) U/L ALT 14 (7-52) U/L Alkaline Phosphatase 88 (34-104) U/L Troponin I High Sens 2.5 (0-14) pg/ml Total Protein 7.1 (6.0-8.3) gm/dl Albumin 4.3 (3.4-5.0) gm/dl Lipase 6 L (11-82) U/L TSH 2.351 (0.300-4.500) uIu/ml Urine Color Yellow Urine Appearance Clear (Clear) Urine pH 6.5 (4.5-7.5) Ur Specific [place] 1.012 (1.000-1.030) Urine Protein Negative (Negative) Urine Glucose (UA) Negative (Negative) Urine Ketones Negative (Negative) Urine Blood Negative (Negative) Urine Nitrite Negative (Negative) Urine Bilirubin Negative (Negative) Urine Urobilinogen Negative (Negative) Ur Leukocyte Esterase Negative (Negative) Administered Medications Discontinued Medications Dexamethasone Sodium Phosphate (DexamethasonePf 10 Mg/Ml Vial) 10 mg IV NOW ONE Stop: 11/19/23 13:13 Last Admin: 11/19/23 13:40 Dose: 10 mg Documented By: AMS Diphenhydramine HCl (Diphenhydramine 50 Mg/Ml Vial) 25 mg IV NOW STA Stop: 11/19/23 13:13 Last Admin: 11/19/23 13:35 Dose: 25 mg Documented By: JOE Prochlorperazine (Compazine) 1 mls @ 1 mls/min IV ONE ONE Stop: 11/19/23 13:13 Last Admin: 11/19/23 13:38 Dose: 1 mls/min Documented By: JOE Magnesium Sulfate/Dextrose (Magnesium Sulfate / D5w) 1 gm in 100 mls @ 100 mls/hr IV NOW STA Stop: 11/19/23 14:11 Last Admin: 11/19/23 13:48 Dose: 100 mls/hr Documented By: JOE Sodium Chloride (Nss) 1,000 mls @ 999 mls/hr IV .Q1H1M ONE Stop: 11/19/23 14:12 Last Admin: 11/19/23 13:34 Dose: 999 mls/hr Documented By: JOE Ioversol (Optiray 320 125ml) 115 ml IV ONCE ONE Stop: 11/19/23 12:52 Last Admin: 11/19/23 12:51 Dose: 115 ml Documented By: BLACK Ketorolac Tromethamine (Ketorolac Tromethamine 15 Mg/Ml Vial) 15 mg IV NOW STA Stop: 11/19/23 13:13 Last Admin: 11/19/23 13:39 Dose: 15 mg Documented By: JOE Imaging Data Radiologist's Impression: Head CTA 11/19/23 11:55 CT angio head wo/w CLINICAL HISTORY: Right-sided weakness. Stroke symptoms. COMPARISON STUDY: Head CT August 05, 2023. MRI of the brain June 16, 2023. CTA of the head June 15, 2023. TECHNIQUE: Unenhanced and arterial phase imaging of the head was performed. Intravenous injection of 115 cc of Optiray 320 IV was uneventful. Sagittal and coronal reconstructions were viewed as well as maximal intensity projections on an independent 3-D workstation. Automated exposure control was utilized for the study. A dose lowering technique was utilized adhering to the principles of ALARA. FINDINGS: No acute intracranial hemorrhage, midline shift or mass effect is present. Ventricular system is normal. Basal cisterns are patent. There are no intra-axial collections. White matter hypodensities are unchanged and favor small vessel disease. There are no findings to suggest acute dural sinus thrombosis or acute territorial infarct. The bilateral M1, M2, A1 and A2 segments are patent. Moderate stenoses of the bilateral posterior cerebral arteries are similar to prior CTA. No vessel occlusion within the posterior circulation is present. There is no intracranial aneurysm. IMPRESSION: 1. No acute intracranial findings. No change in appearance of the brain. 2. No central vessel occlusion. No intracranial aneurysm. No change in moderate multifocal stenoses within the bilateral posterior cerebral arteries. ACT 112: Negative or not required by law. Electronically signed by: Nathaniel Hamilton M.D. 11/19/2023 1:16 PM Neck CTA 11/19/23 11:55 CT ANGIOGRAPHY OF THE NECK WITH CONTRAST CLINICAL HISTORY: Stroke. COMPARISON STUDY: CTA of the neck August 15, 2023. Technique: CT angiography of the carotid and vertebral arteries was obtained using Optiray and 3D reconstruction on an independent workstation. NASCET criteria was utilized. Automated exposure control was utilized for the study. A dose lowering technique was utilized adhering to the principles of ALARA. Findings: There is no cervical lymphadenopathy. No acute cervical spine fractures are present. The bilateral common carotid, cervical internal carotid and vertebral arteries are patent. There is mild stenosis at the origin of the left subclavian artery. The right vertebral is dominant and patent. There is no dissection or aneurysm within the neck. There is mild plaque within the proximal bilateral internal carotid arteries without significant stenosis. IMPRESSION: No stenosis or dissection within the bilateral common carotid, cervical internal carotid or vertebral arteries. ACT 112: Negative or not required by law. Electronically signed by: Nathaniel Hamilton M.D. 11/19/2023 1:21 PM Discharge Plan Visit Data Chief Complaint: TIA Symptoms Stated Complaint: RIGHT FACIAL NUMBNESS, LOSS OF VISI ED Provider: Yaniv Wilkerson Discharge Problem: Acute right-sided weakness, Headache, Visual disturbance Forms Stand Alone Forms: [facility] Prescriptions Prescriptions: No Action amitriptyline 25 mg tablet 25 mg PO HS Qty: 90 3RF buspirone 15 mg tablet 15 mg PO TID Qty: 90 8RF clopidogrel 75 mg tablet 75 mg PO DAILY Qty: 90 3RF diclofenac sodium [Arthritis Pain (diclofenac)] 1 % gel 2 g topical QID PRN (Reason: Pain) Qty: 100 11RF Rx Instructions: apply to low back pain fluticasone propionate 50 mcg/actuation spray,suspension 1 spray intranasal QAM PRN (Reason: Allergy Symptoms) Qty: 16 3RF levothyroxine 75 mcg capsule 75 mcg PO DAILY Qty: 90 3RF lisinopril 10 mg tablet 10 mg PO QAM Qty: 90 3RF meclizine 25 mg tablet 25 mg PO TID PRN (Reason: motion sickness) Qty: 30 3RF potassium chloride [Klor-Con 10] 10 mEq tablet extended release 10 meq PO QAM Qty: 30 11RF tamsulosin 0.4 mg capsule 0.4 mg PO HS Qty: 90 3RF Rx Instructions: TAKE 1 CAPSULE BY MOUTH DAILY valacyclovir 500 mg tablet 500 mg PO HS Qty: 90 4RF venlafaxine 150 mg capsule,extended release 24hr 150 mg PO QAM Qty: 90 3RF venlafaxine 75 mg capsule,extended release 24hr 75 mg PO HS Qty: 90 3RF verapamil 240 mg capsule,ext rel. pellets 24 hr 240 mg PO HS 30 Days Qty: 30 5RF sodium chloride 1,000 mg tablet,soluble 1,000 mg PO BID Qty: 60 5RF clonazepam 0.5 mg tablet 0.5 mg PO TID Qty: 90 0RF Rx Instructions: temp increase (DME) compression stockings See Rx Instructions .Route .MEDSUPPLY Qty: 1 0RF Rx Instructions: As directed tobramycin 0.3 % drops 1 drp ophthalmic (eye) Q4H 5 Days Qty: 5 0RF Rx Instructions: PLS DELIVER pantoprazole 40 mg tablet,delayed release (DR/EC) 40 mg PO BID Qty: 180 3RF (DME) wheeled walker with seat See Rx Instructions .Route .MEDSUPPLY Qty: 1 0RF Rx Instructions: As directed cyanocobalamin (vitamin B-12) 1,000 mcg Lozenge 1,000 mcg SUBLINGUAL QAM latanoprost 0.005 % drops 1 drp ophthalmic (eye) HS cyclosporine [Restasis] 0.05 % Dropperette 1 drp OPB Q12H Systane (propylene glycol) 0.4-0.3 % Drops 1 drp OPB QID aodqlxpaii-xntlxwcyatuhi-jwek 50-325-40 mg tablet 1 - 2 tab PO DIRECTED PRN (Reason: pain) Rx Instructions: every 4- 5 hours as needed for severe headache. No more than 2-3 days per week, max 6 tabs in 24 hours ketoconazole 2 % cream 1 applic topical BID PRN (Reason: FLARE UPS) Referrals Referrals: Angelina Hobbs CRNP [Primary Care Provider] - Discharge Problem: Headache Qualifiers: Headache type: unspecified Headache chronicity pattern: acute headache I ntractability: not intractable Qualified Code(s): R51.9 - Headache, unspecified
[2023-11-19 12:25] LABS: Basophils # (auto) 0.03 K/uL (0.00-0.20); Basophils % (auto) 0.5 %; Eosinophils % (auto) 1.8 %; Hematocrit (blood only) 34.9 % (37.0-47.0); Hemoglobin 11.9 g/dl (12.0-16.0); Immature Granulocytes # (auto) 0.02 K/uL (0.01-0.20); Immature Granulocytes % (auto) 0.4 %; Lymphocytes # (auto) 1.51 K/uL (1.20-3.40); Mean Corpuscular Hemoglobin 31.2 pg (25.0-34.0); Mean Corpuscular Hgb Conc 34.1 g/dL (32.0-36.0); Mean Corpuscular Volume 91.6 fL (80.0-100.0); Mean Platelet Volume 9.1 fL (9.4-12.4); Monocytes # (auto) 0.42 K/uL (0.11-0.59); Monocytes % (auto) 7.5 %; Neutrophils # (auto) 3.51 K/uL (1.40-6.50); Neutrophils % (auto) 62.8 %; Platelet Count 281 K/uL (130-400); RDW Coefficient of Variation 12.7 % (11.5-14.5); RDW Standard Deviation 42.8 fL (36.4-46.3); Red Blood Count 3.81 M/uL (4.20-5.40); White Blood Count 5.59 K/ul (4.8-10.8)
[2023-11-19 12:44] LABS: Alanine Aminotransferase 14 U/L (7-52); Albumin Level 4.3 gm/dl (3.4-5.0); Alkaline Phosphatase 88 U/L (34-104); Anion Gap 8 (3-11); Aspartate Aminotransferase 17 U/L (13-39); BUN Creatinine Ratio 15.3 (10-20); Bilirubin Direct 0.1 mg/dl (0-0.2); Bilirubin,Total 0.4 mg/dl (0.2-1.0); Blood Urea Nitrogen 13 mg/dl (6-23); Calcium 9.1 mg/dl (8.6-10.3); Carbon Dioxide 25 mmol/L (21-32); Chloride 101 mmol/L (98-107); Est GFR (African American) 82.8 ml/min; Est GFR (Non-African American) 71.4 ml/min; Glucose 96 mg/dl (70-99(Fasting)); Lipase 6 U/L (11-82); Potassium 4.3 mmol/L (3.5-5.1); Sodium 134 mmol/L (136-145); Total Protein 7.1 gm/dl (6.0-8.3)
[2023-11-19] MEDS ORDERED: OPTIRAY 320 125ml IV ONE (12:51)
[2023-11-19 12:52] LABS: Appearance Urine Clear (Clear); Bilirubin Urine Negative (Negative); Blood Urine Negative (Negative); Color Urine Yellow; Glucose Urine UA Negative (Negative); Ketones Urine Negative (Negative); Leukocyte Esterase Urine Negative (Negative); Nitrite Urine Negative (Negative); Protein Urine Negative (Negative); Specific Gravity Urine 1.012 (1.000-1.030); Urobilinogen Urine Negative (Negative); pH Urine 6.5 (4.5-7.5)
[2023-11-19 12:52] LABS: Troponin I High Sensitivity 2.5 pg/ml (0-14)
[2023-11-19 12:57] LABS: INR 0.9 (0.9-1.1); Prothrombin Time 10.3 Seconds (9.0-12.0)
[2023-11-19 13:01] LABS: Thyroid Stimulating Hormone 2.351 uIu/ml (0.300-4.500)
[2023-11-19] MEDS ORDERED: diphenhydrAMINE 50 MG/ML VIAL IV STA (13:12)
[2023-11-19] MEDS ORDERED: dexAMETHasone**PF** 10 MG/ML VIAL IV ONE (13:12)
[2023-11-19] MEDS ORDERED: MAGNESIUM SULFATE / D5W 1 GM/100 ML BAG IV STA (13:12)
[2023-11-19] MEDS ORDERED: SODIUM CHLORIDE 0.9% 1,000 ML IV ONE (13:12)
[2023-11-19] MEDS ORDERED: KETOROLAC TROMETHAMINE 15 MG/ML VIAL IV STA (13:12)
[2023-11-19] MEDS ORDERED: PROCHLORPERAZINE 1 ML IV ONE (13:12)
--- NOTE | 2023-11-19 13:18 | CT Scan Report ---
CT angio head wo/w CLINICAL HISTORY: Right-sided weakness. Stroke symptoms. COMPARISON STUDY: Head CT August 05, 2023. MRI of the brain June 16, 2023. CTA of the head Augus t 2022. TECHNIQUE: Unenhanced and arterial phase imaging of the head was performed. Intravenous injection of 115 cc of Optiray 320 IV was uneventful. Sagittal and coronal reconstructions were viewed as well as maximal intensity projections on an independent 3-D workstation. Automated exposure control was utili Glyde for the study. A dose lowering technique was utilized adhering to the principles of ALARA. FINDINGS: No acute intracranial hemorrhage, midline shift or mass effect is present. Ventricular syst em is normal. Basal cisterns are patent. There are no intra-axial collections. White matter hypodensi ties are unchanged and favor small vessel disease. There are no findings to suggest acute dural sinus thrombosis or acute territorial infarct. The bilateral M1, M2, A1 and A2 segments are patent. Modera te stenoses of the bilateral posterior cerebral arteries are similar to prior CTA. No vessel occlusio n within the posterior circulation is present. There is no intracranial aneurysm. IMPRESSION: 1. No acute intracranial findings. No change in appearance of the brain. 2. No central vessel occlusion. No intracranial aneurysm. No change in moderate multifocal stenoses w ithin the bilateral posterior cerebral arteries. ACT 112: Negative or not required by law. Electronically signed by: Nathaniel Hamilton M.D. 11/19/2023 1:16 PM
--- NOTE | 2023-11-19 13:22 | CT Scan Report ---
CT ANGIOGRAPHY OF THE NECK WITH CONTRAST CLINICAL HISTORY: Stroke. COMPARISON STUDY: CTA of the neck August 15, 2023. Technique: CT angiography of the carotid and vertebral arteries was obtained using Optiray and 3D rec onstruction on an independent workstation. NASCET criteria was utilized. Automated exposure control was utilized for the study. A dose lowering technique was utilized adhering to the principles of ALA RA. Findings: There is no cervical lymphadenopathy. No acute cervical spine fractures are present. The bi lateral common carotid, cervical internal carotid and vertebral arteries are patent. There is mild st enosis at the origin of the left subclavian artery. The right vertebral is dominant and patent. There is no dissection or aneurysm within the neck. There is mild plaque within the proximal bilateral int ernal carotid arteries without significant stenosis. IMPRESSION: No stenosis or dissection within the bilateral common carotid, cervical internal carotid or vertebral arteries. ACT 112: Negative or not required by law. Electronically signed by: Nathaniel Hamilton M.D. 11/19/2023 1:21 PM
--- NOTE | 2023-11-19 14:07 | History & Physical Report ---
Date of Service November 19, 2023 Assessment & Plan (1) Stroke-like symptoms: Plan: Right-sided weakness and paresthesias upon waking at 0800 on 11/19 LKW at 2100 on 11/18 before bed Patient would not be TNKase eligible given her window of symptoms Hx of multiple migraine strokes and TIAs within the last 7 years (patient reports residual right-sided deficits since 2015) Head CTA revealed no acute intracranial findings, occlusions, or aneurysms Neck CTA revealed no stenosis or dissection of carotids or vertebral arteries Brain MRI ordered, pending Patient takes Plavix 75 mg daily, and reports that she took it the morning of 11/19 Aspirin 324 mg given in the ED Recommend continuing aspirin 81 mg daily while inpatient Neurochecks q4h Continuous telemetry monitoring Dysphagia screen, then advance diet as tolerated Speech therapy eval given mildly slurred speech on arrival PT/OT consulted; she uses a walker/cane at baseline Acetaminophen as needed for pain Zofran as needed for nausea A.m. CBC, BMP, fasting lipid panel, A1c (2) Hypertension: Plan: Continue lisinopril (3) GERD (gastroesophageal reflux disease): Plan: Continue omeprazole or pharmacological equivalent (4) Hypothyroidism: Plan: Continue levothyroxine (5) Depression with anxiety: Plan: Continue venlafaxine, amitriptyline, buspirone (6) Esophageal dysmotility: Plan: Aspiration precautions HOB >30 degrees (7) History of shingles: Plan: x11 episodes Continue valacyclovir for prophylaxis (8) Parkinsonism: Plan Disposition: Admit to [facility] telemetry DNR/DNI Keep n.p.o. pending dysphagia screen, then advance diet as tolerated (aspiration precautions given esophageal dysmotility) VTE PPx: SCDs (hold chemical DVT PPx until brain MRI comes back) History of Present Illness Chief Complaint: TIA symptoms Primary Care Provider: BRIEN Chahal Charley is a 67-year-old female with PMH of HTN, GERD, hypothyroidism, memory impairment, depression, anxiety, TIAs, parkinsonism's, CVD, OA, and esophageal dysmotility. She woke up at 0800 on the morning of 11/19 with blurry vision, and difficulty seeing out of her right eye. She then developed right-sided facial numbness, and right arm numbness and weakness. She denies slurred speech, and facial droop. She denies involvement in the legs. She reports that she has had strokes in the past similar to this 1. She does not remember when her last stroke was. She has had multiple TIAs since 2014 when she lost part of her cogn ition; endorses residual right-sided deficits. Patient took all of her normal morning medications today. She manages her own medications at home. The only recent change in medications was started on sodium tablets twice daily as she had multiple episodes of falls several months ago. She denies recent injuries to the head or neck. She takes valacyclovir at night as she has had recurrence of shingles 11 times. At present, she still has a headache on the right side that is constant, achy. She did not take anything at home for the headache. She denies alcohol use, tobacco use, and recreational drug use. Of note, she had cataract surgery in June, and has had residual visual problems since. Vital stable at time of admission; patient is normotensive at 116/75. ED course: NSS 1000 mL IV Magnesium sulfate 1 g IV Toradol 50 mg IV Compazine 1 mL IV Benadryl 25 mg IV Decadron 10 mg IV ROS: Patient endorses cold intolerance, dry cough, dizziness, lightheadedness, QUARLES, R- sided chest pain, SOB (due to cold weather), nausea,, N/T in rightface and arms, intermittent burning with urination and dysuria. Patient denies fever, chills, nightsweats, vomiting, diarrhea, blood in the urine/stool, and N/T in right legs Allergies Allergy/AdvReac Type Severity Reaction Status Date / Time methylprednisolone AdvReac Severe Psychosis Verified 11/15/23 10:53 ciprofloxacin [From Cipro] AdvReac Intermediate nausea Verified 11/15/23 10:53 erythromycin base AdvReac Intermediate VOMITTING Verified 11/15/23 10:53 Macrolide Antibiotics AdvReac Intermediate STOMACH Verified 11/15/23 10:53 UPSET Home Medications Medication Instructions Recorded Confirmed Type cyanocobalamin (vitamin B-12) 1,000 mcg sublingual QAM 05/03/20 11/19/23 History 1,000 mcg sublingual lozenge latanoprost 0.005 % eye drops 1 drp ophthalmic (eye) HS 10/22/21 11/19/23 His tory compression stockings #1 ea 05/13/22 11/15/23 Rx wheeled walker with seat #1 ea 07/22/22 11/15/23 Rx [id number]-[id number]-[id number] 1 - 2 tab PO DIRECTED PRN pain 06/15/23 11/19/23 History 50 mg-325 mg-40 mg tablet cyclosporine 0.05 % eye drops in a 1 drp OPB Q12H 06/15/23 11/19/23 History dropperette (Restasis) ketoconazole 2 % topical cream 1 applic topical BID PRN FLARE UPS 06/15/23 11/19/23 History peg 400-propylene glycol 0.4 %-0.3 1 drp OPB QID 06/15/23 11/19/23 History % eye drops (Systane (propylene glycol)) amitriptyline 25 mg tablet 25 mg PO HS #90 tabs 08/23/23 11/19/23 Rx buspirone 15 mg tablet 15 mg PO TID #90 tabs 08/23/23 11/19/23 Rx clopidogrel 75 mg tablet 75 mg PO DAILY #90 tabs 08/23/23 11/19/23 Rx diclofenac sodium 1 % topical gel 2 g topical QID PRN Pain #100 grams 08/23/23 11/19/23 Rx (Arthritis Pain (diclofenac)) fluticasone propionate 50 1 spray intranasal QAM PRN Allergy 08/23/23 11/19/23 Rx mcg/actuation nasal Symptoms #16 grams spray,suspension levothyroxine 75 mcg capsule 75 mcg PO DAILY #90 caps 08/23/23 11/19/23 Rx lisinopril 10 mg tablet 10 mg PO QAM #90 tabs 08/23/23 11/19/23 Rx meclizine 25 mg tablet 25 mg PO TID PRN motion sickness 08/23/23 11/19/23 Rx #30 tabs potassium chloride 10 mEq 10 meq PO QAM #30 tabs 08/23/23 11/19/23 Rx tablet,extended release (Klor-Con) tamsulosin 0.4 mg capsule 0.4 mg PO HS #90 caps 08/23/23 11/19/23 Rx valacyclovir 500 mg tablet 500 mg PO HS #90 tabs 08/23/23 11/19/23 Rx venlafaxine 150 mg 150 mg PO QAM #90 caps 08/23/23 11/19/23 Rx capsule,extended release 24 hr venlafaxine 75 mg capsule,extended 75 mg PO HS #90 caps 08/23/23 11/19/23 Rx release 24 hr verapamil 240 mg 24 hr 240 mg PO HS 30 days #30 caps 08/26/23 11/19/23 Rx capsule,extended release sodium chloride 1,000 mg soluble 1,000 mg PO BID #60 tabs 10/20/23 11/19/23 Rx tablet pantoprazole 40 mg tablet,delayed 40 mg PO BID #180 tabs 11/15/23 11/19/23 Rx release tobramycin 0.3 % eye drops 1 drp ophthalmic (eye) Q4H 5 days 11/15/23 11/19/23 Rx #5 mL clonazepam 0.5 mg tablet 0.5 mg PO TID #90 tabs 11/17/23 11/19/23 Rx aspirin 81 mg tablet,delayed 81 mg PO QAM 30 days #30 tabs 11/20/23 Rx release Past Med/Surg History Medical History (Updated 11/19/23 @ 14:52 by Jose Wade PA-C) Stroke-like symptoms Anemia Tear of medial meniscus of right knee Osteoarthritis of right knee Glaucoma History of shingles takes valtrex daily. no active shingles currently Vertigo Nausea and vomiting after administration of anesthetic agent On anticoagulant therapy Stroke October 22, 2021 -> treated at [facility]. right side weakness. December 21, 2021 Transient ischemic attack (TIA) August 2021. Stroke migraine stroke (unsure of date -- within the last 7 years (since 2014) -> deficits include mild/minor dementia, finding right words, memory loss, right arm and leg weakness. follows with [facility]. Parkinson disease History of COVID-19 Aug 17, 2020. no current issues History of anesthesia reaction unsure of the medication drug; reports getting a locked jaw after a surgery (~1979's) (unsure if it was vein stripping surgery or hysterectomy) Hypertension GERD (gastroesophageal reflux disease) Palpitations "irreegular heart beat" Migraine Memory impairment mild - alert and oriented x3 Hypothyroidism Depression with anxiety Hx of venous thrombosis and embolism (09/20/11) unsure of exact date. related to HRT. placed on anticoagulant since. Irritable bowel syndrome (09/20/11) Old myocardial infarct (09/20/11) no stents -- no current cardiology, follows with pcp Restless legs syndrome (09/20/11) Peripheral edema Osteoarthritis of hands, bilateral Esophageal dysmotility Cervical radiculopathy Arthralgia of multiple sites Anemia Acid reflux Achalasia, esophageal Surgical History Hx of cataract extraction RT. History of cardiac cath [facility]. no stents History of esophagogastroduodenoscopy (EGD) History of laparoscopy History of colonoscopy H/O varicose vein ligation and stripping S/P total abdominal hysterectomy with BSO H/O rectocele repair cystocele and rectocele H/O ovarian cystectomy History of appendectomy Family History Mother Myocardial infarction Stroke Heart disease Father Stroke Other No family history of adverse response to anesthesia Denies family history of Ovarian cancer Prostate cancer Breast cancer Colorectal cancer Social History Smoking Status: Never smoker Second Hand Exposure: No; Do You Dip or Chew Tobacco: No; Hx Alcohol Use: No Hx Substance Use: No Preferred Language: German Communication Ability: Effective Visual Impairment: No Limitations Electronics Supervisor Required: No Beliefs That Will Affect Care: None marital status: / Current Living Situation: Alone current occupational status: retired 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 How many Children do You have: 2 Feels Safe at Home: Yes Childhood Exposure to Second-Hand Smoke: No Diet: regular caffeine: Yes Dental Care, Regularly: No Physical Activity Frequency: Daily Seatbelt Use: always Sunscreen Use: Yes (sometimes) Assistive Devices: Cane Review of Systems Review of Systems: See HPI above Physical Exam Physical Exam: General: no acute distress; non-toxic appearing; well-nourished; cooperative HEENT: normocephalic, atraumatic; no scleral icterus; PERRLA w/ EOMs intact; moist mucus membrane; vision and hearing grossly intact; patient demonstrates ability to protrude and wiggle tongue; patient raises eyebrows and smiles without unilateral deficits Neck: supple; no lymphadenopathy; trachea midline; patient is able to shrug shoulders against resistance Skin: warm, dry without signs of tenting; no cyanosis; no rashes, bruising, lesions, or erythema noted CV: chest wall NTP; RRR; S1/S2 normal; no murmurs/rubs/gallops; pulses intact and symmetric at radial, DP, and PT Lungs: no acute respiratory distress; symmetrical chest wall expansion; clear breath sounds across all lung leigh w/o adventitious sounds; no wheezing ABD: Soft, NTP; BS present; no rebound/guarding; no ascites; no distention; negative CVA tenderness MSK: no tics or fasciculations; nonpitting edema in the LLE, nonerythematous (patient reports it has been slightly larger ever since she had veins removed); RLE without edema, nonerythematous; 5/5 neonatal intensive care unit nurse strength bilaterally Neuro: A&Ox3; normal mood and affect; mildly slurred speech; decreased sensation in the right face, and right upper extremity; sensation bilateral, intact, symmetric in the LEs Results & Data Results & Data Vital Signs (Past 12 Hours) Vital Signs Temp Pulse Pulse Resp BP BP Pulse Ox 11/19/23 13:00 58 L 18 116/75 95 11/19/23 12:44 56 L 18 128/68 95 11/19/23 12:05 61 11/19/23 11:43 36.6 C 68 20 127/74 96 O2 Del Method 11/19/23 13:00 Room Air 11/19/23 12:44 Room Air 11/19/23 12:05 11/19/23 11:43 Room Air Laboratory Results Abnormal lab results 11/19/23 Range/Units 12:07 RBC 3.81 L (4.20-5.40) M/uL Hgb 11.9 L (12.0-16.0) g/dl Hct 34.9 L (37.0-47.0) % MPV 9.1 L (9.4-12.4) fL Sodium 134 L (136-145) mmol/L Lipase 6 L (11-82) U/L Diagnostic Findings Head CTA 11/19/23 11:55 CT angio head wo/w CLINICAL HISTORY: Right-sided weakness. Stroke symptoms. COMPARISON STUDY: Head CT August 05, 2023. MRI of the brain June 16, 2023. CTA of the head June 15, 2023. TECHNIQUE: Unenhanced and arterial phase imaging of the head was performed. Intr avenous injection of 115 cc of Optiray 320 IV was uneventful. Sagittal and coronal reconstructions were viewed as well as maximal intensity projections on an independent 3-D workstation. Automated exposure control was utilized for the study. A dose lowering technique was utilized adhering to the principles of ALARA. FINDINGS: No acute intracranial hemorrhage, midline shift or mass effect is pre sent. Ventricular system is normal. Basal cisterns are patent. There are no intra-axial collections. White matter hypodensities are unchanged and favor small vessel disease. There are no findings to suggest acute dural sinus thrombosis or acute territorial infarct. The bilateral M1, M2, A1 and A2 segments are patent. Moderate stenoses of the bilateral posterior cerebral arteries are similar to prior CTA. No vessel occlusion within the posterior circulation is present. There is no intracranial aneurysm. IMPRESSION: 1. No acute intracranial findings. No change in appearance of the brain. 2. No central vessel occlusion. No intracranial aneurysm. No change in moderate multifocal stenoses within the bilateral posterior cerebral arteries. ACT 112: Negative or not required by law. Electronically signed by: Nathaniel Hamilton M.D. 11/19/2023 1:16 PM Neck CTA 11/19/23 11:55 CT ANGIOGRAPHY OF THE NECK WITH CONTRAST CLINICAL HISTORY: Stroke. COMPARISON STUDY: CTA of the neck August 15, 2023. Technique: CT angiography of the carotid and vertebral arteries was obtained using Optiray and 3D reconstruction on an independent workstation. NASCET criteria was utilized. Automated exposure control was utilized for the study. A dose lowering technique was utilized adhering to the principles of ALARA. Findings: There is no cervical lymphadenopathy. No acute cervical spine fractures are present. The bilateral common carotid, cervical internal carotid and vertebral arteries are patent. There is mild stenosis at the origin of the left subclavian artery. The right vertebral is dominant and patent. There is no dissection or aneurysm within the neck. There is mild plaque within the proximal bilateral internal carotid arteries without significant stenosis. IMPRESSION: No stenosis or dissection within the bilateral common carotid, cervical internal carotid or vertebral arteries. ACT 112: Negative or not required by law. Electronically signed by: Nathaniel Hamilton M.D. 11/19/2023 1:21 PM Code Status & VTE Plan Code Status DNR/DNI VTE Prophylaxis Plan VTE Prophylaxis will be ordered: Yes Supervising Physician Co-Signing Physician Notes Patient seen and examined, chart reviewed, case discussed with Jose Wade PA-C and I agree with the assessment and plan as above except as otherwise noted . Labs and images reviewed. C7-year-old with history of hypertension, GERD, hypothyroidism, depression/anxiety, parkinsonism, CVD who presents with right- sided chest pain, shortness of breath, nausea, numbness and tingling in the right face and arms. R weakness this mornign + dysarthia, improved/improving by time of exam. Endorses tingling of the right face with some slurred speech increased from normal. CTA without acute findings, CThead without acute findings. MRI for stroke eval pending. Full dose aspirin given, continue DAPT and secondary stroke management. Permissive hypertension x 24 hours, may disc ontinue permissive hypertension if no stroke seen on MRI. DDx does include complex migraine. 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 PG Care Time/CCT Total # of Minutes Spent Total Time Spent with Patient: Total time spent is greater than 50% in coordination of care (as documented) at patient's floor/unit and/or counseling patient: Coding [place] [address] INT INP/OBS CARE 2/55MIN Patient Type Established Medical Decision Making Moderate Complexity Diagnoses Stroke-like symptoms R29.90 Primary hypertension I10 Hypertension type: primary hypertension Gastroesophageal reflux disease without esophagitis K21.9 Esophagitis presence: without esophagitis Acquired hypothyroidism E03.9 Hypothyroidism type: acquired Depression with anxiety F41.8 Esophageal dysmotility K22.4 History of shingles Z86.19 Parkinson's disease, unspecified whether dyskinesia present, unspecified whether manifestations fluctuate G20.A1 Dyskinesia presence: unspecified whether dyskinesia Fluctuating manifestations: unspecified whether manifestations fluctuate Parkinsonism type: Parkinson's disease (2) Hypertension Hypertension type: primary hypertension Qualified Code(s): I10 - Essential (primary) hypertension (3) GERD (gastroesophageal reflux disease) Esophagitis presence: without esophagitis Qualified Code(s): K21.9 - Gastro- esophageal reflux disease without esophagitis (4) Hypothyroidism Hypothyroidism type: acquired Qualified Code(s): E03.9 - Hypothyroidism, unspecified (8) Parkinsonism Dyskinesia presence: unspecified whether dyskinesia Fluctuating manifestations: unspecified whether manifestations fluctuate Parkinsonism type: Parkinson's disease Qualified Code(s): G20.A1 - Parkinson's disease without dyskinesia, without mention of fluctuations
[2023-11-19] MEDS ORDERED: ASPIRIN 81 MG CHEW PO ONE (14:32)
[2023-11-19] MEDS ORDERED: PHARMACIST DISCHARGE MED REC CONSULT PRN (14:32)
[2023-11-19] MEDS ORDERED: busPIRone 7.5 MG TAB PO ONE (15:01)
[2023-11-19] MEDS ORDERED: clonazePAM 0.5 MG TAB PO ONE (15:02)
[2023-11-19] MEDS ORDERED: ONDANSETRON INJ 2 MG/ML 2 ML VIAL IV PRN (15:17)
[2023-11-19] MEDS ORDERED: FLUTICASONE PROPIONATE NA SPR 16 GM BTL PRN (15:17)
[2023-11-19] MEDS ORDERED: ACETAMINOPHEN 325 MG TAB PO PRN (15:17)
[2023-11-19] MEDS ORDERED: MECLIZINE HCL 25 MG TAB PO PRN (15:17)
[2023-11-19] MEDS ORDERED: DICLOFENAC SOD 1% GEL 100 GM TUBE EXT PRN (15:17)
--- NOTE | 2023-11-19 16:13 | Magnetic Resonance Report ---
MRI OF THE BRAIN WITHOUT CONTRAST CLINICAL HISTORY: TIA symptoms COMPARISON STUDY: MRI of the brain June 16, 2023. CT and CT of the head performed earlier today. TECHNIQUE: Utilizing a 1.5 Cindy magnet and dedicated coil, multiplanar, multiecho imaging of the bra in was performed without IV contrast. FINDINGS: There are no foci of restricted diffusion to suggest acute infarct. No acute intracranial h emorrhage, midline shift or mass effect is present. Ventricular system is unremarkable. Basal cistern s are patent. There are no extra-axial collections. Flow-voids for the major intracranial vessels are present. Numerous white matter T2 hyperintense foci are similar to MRI of June 16, 2023. There has been no significant change in appearance of the brain since that study. Calvarial signal is normal. N o evidence for sinusitis. No mastoid fluid. IMPRESSION: No acute intracranial findings. No change in appearance of the brain since MRI of June 16, 2023. ACT 112: Negative or not required by law. Electronically signed by: Nathaniel Hamilton M.D. 11/19/2023 4:11 PM
[2023-11-19] MEDS: TOBRAMYCIN SULF 0.3% OP SOLN 5 ML BTL OP SCH ×2 (18:09→21:33)
[2023-11-19] MEDS: ARTIFICIAL TEARS OPB SCH (18:12)
[2023-11-19] MEDS: busPIRone 15 MG TAB PO SCH (20:09)
[2023-11-19] MEDS: valACYclovir HCL 500 MG TABLET PO SCH (20:09)
[2023-11-19] MEDS: AMITRIPTYLINE HCL 25 MG TAB PO SCH (20:09)
[2023-11-19] MEDS: SODIUM CHLORIDE 1 GM TABLET PO SCH (20:10)
[2023-11-19] MEDS: TAMSULOSIN HCL 0.4 MG CAP PO SCH (20:10)
[2023-11-19] MEDS: PANTOprazole 40 MG TAB PO SCH (20:10)
[2023-11-19] MEDS: VERAPAMIL HCL 240 MG TABCR PO SCH (20:11)
[2023-11-19] MEDS: VENLAFAXINE HCL XR 75 MG CAPXR PO SCH (20:11)
[2023-11-19] MEDS: LATANOPROST 0.005% OP SOLN 2.5 ML BTL OP SCH (20:11)
[2023-11-19] MEDS: clonazePAM 0.5 MG TAB PO SCH (21:34)
[2023-11-20] MEDS: TOBRAMYCIN SULF 0.3% OP SOLN 5 ML BTL OP SCH ×6 (02:08→21:13)
[2023-11-20 06:18] LABS: Basophils # (auto) 0.01 K/uL (0.00-0.20); Basophils % (auto) 0.2 %; Hematocrit (blood only) 32.3 % (37.0-47.0); Hemoglobin 10.9 g/dl (12.0-16.0); Immature Granulocytes # (auto) 0.03 K/uL (0.01-0.20); Immature Granulocytes % (auto) 0.5 %; Lymphocytes # (auto) 0.72 K/uL (1.20-3.40); Lymphocytes % (auto) 11.4 %; Mean Corpuscular Hemoglobin 31.1 pg (25.0-34.0); Mean Corpuscular Hgb Conc 33.7 g/dL (32.0-36.0); Mean Corpuscular Volume 92.3 fL (80.0-100.0); Mean Platelet Volume 9.1 fL (9.4-12.4); Monocytes # (auto) 0.21 K/uL (0.11-0.59); Monocytes % (auto) 3.3 %; Neutrophils # (auto) 5.36 K/uL (1.40-6.50); Neutrophils % (auto) 84.6 %; Platelet Count 255 K/uL (130-400); RDW Coefficient of Variation 12.5 % (11.5-14.5); White Blood Count 6.33 K/ul (4.8-10.8)
[2023-11-20 06:36] LABS: BUN Creatinine Ratio 21.9 (10-20); Calcium 8.5 mg/dl (8.6-10.3); Chol HDL Ratio 5.1 (0-5); Creatinine Clr Calc Pharmacy 62.7 ml/min; Est GFR (African American) 99.5 ml/min; Est GFR (Non-African American) 85.8 ml/min; Potassium 4.1 mmol/L (3.5-5.1)
[2023-11-20] MEDS: LEVOTHYROXINE SODIUM 75 MCG TABLET PO SCH (06:51)
[2023-11-20] MEDS: ARTIFICIAL TEARS OPB SCH ×2 (06:51→17:09)
[2023-11-20] MEDS: CLOPIDOGREL BISULFATE 75 MG TAB PO SCH ×3 (09:14→09:41)
[2023-11-20] MEDS: busPIRone 15 MG TAB PO SCH ×3 (09:14→20:36)
[2023-11-20] MEDS: POTASSIUM CHLORIDE 10 MEQ TABCR PO SCH ×3 (09:14→09:41)
[2023-11-20] MEDS: PANTOprazole 40 MG TAB PO SCH ×2 (09:14→20:37)
[2023-11-20] MEDS: clonazePAM 0.5 MG TAB PO SCH ×3 (09:14→20:35)
[2023-11-20] MEDS: ASPIRIN 81 MG ECTAB PO SCH (09:40)
[2023-11-20] MEDS: SODIUM CHLORIDE 1 GM TABLET PO SCH ×2 (09:40→20:37)
[2023-11-20] MEDS: VENLAFAXINE HCL XR 150 MG CAPXR PO SCH (09:40)
[2023-11-20] MEDS: lisinopril 10 MG TAB PO SCH (09:40)
--- NOTE | 2023-11-20 15:32 | Hospitalist Progress Note ---
Date of Service November 20, 2023 Assessment & Plan (1) Stroke-like symptoms: Plan: Right-sided weakness and paresthesias have resolved Not a candidate for TNKase History of multiple TIAs and migraine attacks in the past Head CTA negative Neck CTA negative Brain MRI negative Patient takes Plavix 75 mg daily Aspirin 81 mg daily has been added Patient complains of feeling unsteady PT/OT consulted Patient is not willing to go home today (2) Hypertension: Plan: Continue lisinopril (3) GERD (gastroesophageal reflux disease): Plan: Continue omeprazole or pharmacological equivalent (4) Hypothyroidism: Plan: Continue levothyroxine (5) Depression with anxiety: Plan: Continue venlafaxine, amitriptyline, buspirone (6) Esophageal dysmotility: Plan: Aspiration precautions HOB >30 degrees (7) History of shingles: Plan: x11 episodes Continue valacyclovir for prophylaxis (8) Parkinsonism: Plan Disposition: Admit to [facility] telemetry DNR/DNI VTE PPx: SCDs, Lovenox Admission and Anticipated Discharge Date Admission Date: November 19, 2023 Subjective Patient complains of feeling very weak and unsteady. She still has a little bit of headache. But her right arm weakness and facial numbness have resolved. Review of Systems Review of Systems: All systems reviewed & are unremarkable except as noted in Subjective Physical Exam Physical Exam: General: Awake, conversant Heart: S1, S2/regular rate and rhythm, no murmur rubs or gallops Lungs: Clear to auscultation bilaterally. Normal effort Abdomen: Soft/nontender/nondistended. No hepatosplenomegaly Extremities: No clubbing/cyanosis. No edema Behavior: Appropriate, cooperative Results & Data Results & Data Vital Signs (Past 12 Hours) Vital Signs Pulse Resp BP Pulse Ox Pulse Ox O2 Del Method O2 Flow Rate 11/20/23 15:15 66 11/20/23 13:00 96 0 11/20/23 12:00 141/80 H 11/20/23 12:00 63 16 94 11/20/23 11:40 94 11/20/23 11:30 61 17 93 11/20/23 11:00 130/69 11/20/23 11:00 58 L 20 96 11/20/23 10:30 54 L 17 94 11/20/23 10:01 58 L 21 95 11/20/23 10:01 132/73 11/20/23 10:00 55 L 21 94 11/20/23 09:42 62 20 122/68 94 Room Air 11/20/23 07:44 62 11/20/23 04:08 63 22 104/54 L 92 11/20/23 03:30 51 L 13 91 PG Care Time/CCT Total # of Minutes Spent Total Time Spent with Patient: Total time spent is greater than 50% in coordination of care (as documented) at patient's floor/unit and/or counseling patient: Coding Level of Care Code 00004 SUB INP/OBS CARE 2MIN Diagnoses Stroke-like symptoms R29.90 Primary hypertension I10 Hypertension type: primary hypertension Gastroesophageal reflux disease without esophagitis K21.9 Esophagitis presence: without esophagitis Acquired hypothyroidism E03.9 Hypothyroidism type: acquired Depression with anxiety F41.8 Esophageal dysmotility K22.4 History of shingles Z86.19 Parkinson's disease, unspecified whether dyskinesia present, unspecified whether manifestations fluctuate G20.A1 Parkinsonism type: Parkinson's disease Dyskinesia presence: unspecified whether dyskinesia Fluctuating manifestations: unspecified whether manifestations fluctuate (2) Hypertension Hypertension type: primary hypertension Qualified Code(s): I10 - Essential (primary) hypertension (3) GERD (gastroesophageal reflux disease) Esophagitis presence: without esophagitis Qualified Code(s): K21.9 - Gastro-esophageal reflux disease without esophagitis (4) Hypothyroidism Hypothyroidism type: acquired Qualified Code(s): E03.9 - Hypothyroidism, unspecified (8) Parkinsonism Parkinsonism type: Parkinson's disease Dyskinesia presence: unspecified whether dyskinesia Fluctuating manifestations: unspecified whether manifestations fluctuate Qualified Code(s): G20.A1 - Parkinson's disease without dyskinesia, without mention of fluctuations
[2023-11-20] MEDS: POLYETHYLENE (MIRALAX) 17 GM PACK PO SCH (17:08)
[2023-11-20] MEDS ORDERED: KETOROLAC TROMETHAMINE 15 MG/ML VIAL IV ONE (20:07)
[2023-11-20] MEDS: DOCUSATE SODIUM 100 MG CAP PO SCH (20:36)
[2023-11-20] MEDS: AMITRIPTYLINE HCL 25 MG TAB PO SCH (20:36)
[2023-11-20] MEDS: LATANOPROST 0.005% OP SOLN 2.5 ML BTL OP SCH (20:36)
[2023-11-20] MEDS: TAMSULOSIN HCL 0.4 MG CAP PO SCH (20:37)
[2023-11-20] MEDS: VENLAFAXINE HCL XR 75 MG CAPXR PO SCH (20:37)
[2023-11-20] MEDS: valACYclovir HCL 500 MG TABLET PO SCH (20:37)
[2023-11-20] MEDS: VERAPAMIL HCL 240 MG TABCR PO SCH (20:38)
--- NOTE | 2023-11-20 22:18 | Electrocardiogram Report ---
Test Reason : Blood Pressure : / mmHG Vent. Rate : 062 BPM Atrial Rate : 062 BPM P-R Int : 158 ms QRS Dur : 080 ms QT Int : 410 ms P-R-T Axes : 060 033 069 degrees QTc Int : 416 ms Normal sinus rhythm Normal ECG When compared with ECG of 16-JUN-2023 00:00, No significant change was found Confirmed by Alfonso Ann ([id number]) on 11/20/2023 10:17:28 PM Referred By: Confirmed By:Alfonso Ann
[2023-11-21] MEDS: TOBRAMYCIN SULF 0.3% OP SOLN 5 ML BTL OP SCH ×4 (01:27→14:17)
[2023-11-21] MEDS: ARTIFICIAL TEARS OPB SCH (06:03)
[2023-11-21 06:23] LABS: Basophils # (auto) 0.02 K/uL (0.00-0.20); Basophils % (auto) 0.3 %; Eosinophils # (auto) 0.06 K/uL (0.00-0.50); Hematocrit (blood only) 31.3 % (37.0-47.0); Hemoglobin 10.6 g/dl (12.0-16.0); Immature Granulocytes # (auto) 0.02 K/uL (0.01-0.20); Immature Granulocytes % (auto) 0.3 %; Lymphocytes # (auto) 2.37 K/uL (1.20-3.40); Lymphocytes % (auto) 38.9 %; Mean Corpuscular Hemoglobin 31.2 pg (25.0-34.0); Mean Corpuscular Hgb Conc 33.9 g/dL (32.0-36.0); Mean Corpuscular Volume 92.1 fL (80.0-100.0); Mean Platelet Volume 9.1 fL (9.4-12.4); Monocytes # (auto) 0.39 K/uL (0.11-0.59); Monocytes % (auto) 6.4 %; Neutrophils # (auto) 3.24 K/uL (1.40-6.50); Neutrophils % (auto) 53.1 %; Platelet Count 248 K/uL (130-400); RDW Coefficient of Variation 13.1 % (11.5-14.5); RDW Standard Deviation 43.6 fL (36.4-46.3)
[2023-11-21 06:32] LABS: BUN Creatinine Ratio 20.4 (10-20); Calcium 8.7 mg/dl (8.6-10.3); Creatinine Clr Calc Pharmacy 44.4 ml/min; Est GFR (African American) 65.6 ml/min; Est GFR (Non-African American) 56.6 ml/min; Potassium 4.4 mmol/L (3.5-5.1)
[2023-11-21] MEDS: LEVOTHYROXINE SODIUM 75 MCG TABLET PO SCH (06:41)
[2023-11-21 07:40] LABS: Estimated Average Glucose 131 mg/dl; Hemoglobin A1C 6.2 % (4.5-5.6)
[2023-11-21] MEDS: VENLAFAXINE HCL XR 150 MG CAPXR PO SCH (08:41)
[2023-11-21] MEDS: busPIRone 15 MG TAB PO SCH ×2 (08:41→14:17)
[2023-11-21] MEDS: lisinopril 10 MG TAB PO SCH (08:41)
[2023-11-21] MEDS: PANTOprazole 40 MG TAB PO SCH (08:41)
[2023-11-21] MEDS: SODIUM CHLORIDE 1 GM TABLET PO SCH (08:41)
[2023-11-21] MEDS: ASPIRIN 81 MG ECTAB PO SCH (08:41)
[2023-11-21] MEDS: POLYETHYLENE (MIRALAX) 17 GM PACK PO SCH (08:42)
[2023-11-21] MEDS: CLOPIDOGREL BISULFATE 75 MG TAB PO SCH (08:47)
[2023-11-21] MEDS: clonazePAM 0.5 MG TAB PO SCH ×2 (08:52→14:19)
[2023-11-21] MEDS: DOCUSATE SODIUM 100 MG CAP PO SCH (08:52)
[2023-11-21] MEDS: POTASSIUM CHLORIDE 10 MEQ TABCR PO SCH (08:53)
[2023-11-21] MEDS ORDERED: ENOXAPARIN INJ 40 MG/0.4 ML SYR SQ SCH (09:00)
[2023-11-21] MEDS ORDERED: STROKE PATIENT DISCHARGE STA (13:13)
--- NOTE | 2023-11-21 13:15 | Discharge Summary ---
Date of Service November 21, 2023 Admission HPI Per Admitting Provider Charley is a 67-year-old female with PMH of HTN, GERD, hypothyroidism, memory impairment, depression, anxiety, TIAs, parkinsonism's, CVD, OA, and esophageal dysmotility. She woke up at 0800 on the morning of 11/19 with blurry vision, and difficulty seeing out of her right eye. She then developed right-sided facial numbness, and right arm numbness and weakness. She denies slurred speech, and facial droop. She denies involvement in the legs. She reports that she has had strokes in the past similar to this 1. She does not remember when her last stroke was. She has had multiple TIAs since 2014 when she lost part of her cognition; endorses residual right-sided deficits. Patient took all of her normal morning medications today. She manages her own medications at home. The only recent change in medications was started on sodium tablets twice daily as she had multiple episodes of falls several months ago. She denies recent injuries to the head or neck. She takes valacyclovir at night as she has had recurrence of shingles 11 times. At present, she still has a headache on the right side that is constant, achy. She did not take anything at home for the headache. She denies alcohol use, tobacco use, and recreational drug use. Of note, she had cataract surgery in June, and has had residual visual problems since. Vital stable at time of admission; patient is normotensive at 116/75. ED course: NSS 1000 mL IV Magnesium sulfate 1 g IV Toradol 50 mg IV Compazine 1 mL IV Benadryl 25 mg IV Decadron 10 mg IV ROS: Patient endorses cold intolerance, dry cough, dizziness, lightheadedness, QUARLES, R-sided chest pain, SOB (due to cold weather), nausea,, N/T in rightface and arms, intermittent burning with urination and dysuria. Patient denies fever, chills, nightsweats, vomiting, diarrhea, blood in the urine/stool, and N/T in right legs Admission Exam Per Admitting Provider General: no acute distress; non-toxic appearing; well-nourished; cooperative HEENT: normocephalic, atraumatic; no scleral icterus; PERRLA w/ EOMs intact; moist mucus membrane; vision and hearing grossly intact; patient demonstrates ability to protrude and wiggle tongue; patient raises eyebrows and smiles without unilateral deficits Neck: supple; no lymphadenopathy; trachea midline; patient is able to shrug shoulders against resistance Skin: warm, dry without signs of tenting; no cyanosis; no rashes, bruising, lesions, or erythema noted CV: chest wall NTP; RRR; S1/S2 normal; no murmurs/rubs/gallops; pulses intact and symmetric at radial, DP, and PT Lungs: no acute respiratory distress; symmetrical chest wall expansion; clear breath sounds across all lung leigh w/o adventitious sounds; no wheezing ABD: Soft, NTP; BS present; no rebound/guarding; no ascites; no distention; negative CVA tenderness MSK: no tics or fasciculations; nonpitting edema in the LLE, nonerythematous (patient reports it has been slightly larger ever since she had veins removed); RLE without edema, nonerythematous; 5/5 screen printing paster strength bilaterally Neuro: A&Ox3; normal mood and affect; mildly slurred speech; decreased sensation in the right face, and right upper extremity; sensation bilateral, intact, symmetric in the LEs Principal Diagnosis TIA versus complicated migraine Discharge Exam General: Awake, conversant Heart: S1, S2/regular rate and rhythm, no murmur rubs or gallops Lungs: Clear to auscultation bilaterally. Normal effort Abdomen: Soft/nontender/nondistended. No hepatosplenomegaly Extremities: No clubbing/cyanosis. No edema Behavior: Appropriate, cooperative Discharge Data Allergies Allergy/AdvReac Type Severity Reaction Status Date / Time methylprednisolone AdvReac Severe Psychosis Verified 11/15/23 10:53 ciprofloxacin [From Cipro] AdvReac Intermediate nausea Verified 11/15/23 10:53 erythromycin base AdvReac Intermediate VOMITTING Verified 11/15/23 10:53 Macrolide Antibiotics AdvReac Intermediate STOMACH Verified 11/15/23 10:53 UPSET Consultations 11/19/23 14:02 ED Decision to Admit Stat Ordered Studies 11/19/23 11:55 CT angio head wo/w Stat CT angio neck with con Stat 11/19/23 14:32 MR brain wo con Stat Hospital Course (1) Stroke-like symptoms: Right-sided weakness and paresthesias upon waking at 0800 on 11/19 LKW at 2100 on 1 before bed Patient would not be TNKase eligible given her window of symptoms Hx of multiple migraine strokes and TIAs within the last 7 years (patient reports residual right-sided deficits since 2015) Head CTA negative Neck CTA negative Brain MRI negative Patient takes Plavix 75 mg daily Aspirin 81 mg has been added Patient is intolerant to statin. No statin ordered. Neurochecks q4h Continuous telemetry monitoring Patient is back to her baseline today. PT/OT cleared the patient for discharge to home with outpatient PT. Advised her to see her neurologist in 2 weeks and her PCP. (2) Hypertension: Continue lisinopril (3) GERD (gastroesophageal reflux disease): Continue omeprazole or pharmacological equivalent (4) Hypothyroidism: Continue levothyroxine (5) Depression with anxiety: Continue venlafaxine, amitriptyline, buspirone (6) Esophageal dysmotility: Aspiration precautions HOB >30 degrees (7) History of shingles: x11 episodes Continue valacyclovir for prophylaxis (8) Parkinsonism: Plan Discharge to home today Total Time Total Time Spent Total Time Spent (In Minutes): 35 Discharge Plan Discharge Items Patient Disposition: Home - Self-Care Reason For Visit: TIA SYMPTOMS Discharge Diagnosis: possible TIA versus migraine Activity: Resume your previous activity Non-emergency contact: Primary Care Provider Call non-emergency contact if: you have any medication questions and your symptoms worsen Follow-up/Referrals: Angelina Hobbs CRNP [Primary Care Provider] - 11/28/23 10:30 am Diet: Heart Healthy Addtl Attending Provider Instructions: - Advised to follow[facility]up [facility] PCP in 1 week - Advised to follow-up with neurologist in 2 weeks Pending Studies at Discharge: No Stand-Alone Forms: My [employer], Medications to Prevent Stroke Medications and DC Order Prescriptions: New aspirin 81 mg Tablet,Delayed Release (Dr/Ec) 81 mg PO QAM 30 Days Qty: 30 0RF Continued amitriptyline 25 mg tablet 25 mg PO HS Qty: 90 3RF buspirone 15 mg tablet 15 mg PO TID Qty: 90 8RF clopidogrel 75 mg tablet 75 mg PO DAILY Qty: 90 3RF diclofenac sodium [Arthritis Pain (diclofenac)] 1 % gel 2 g topical QID PRN (Reason: Pain) Qty: 100 11RF Rx Instructions: apply to low back pain fluticasone propionate 50 mcg/actuation spray,suspension 1 spray intranasal QAM PRN (Reason: Allergy Symptoms) Qty: 16 3RF levothyroxine 75 mcg capsule 75 mcg PO DAILY Qty: 90 3RF lisinopril 10 mg tablet 10 mg PO QAM Qty: 90 3RF meclizine 25 mg tablet 25 mg PO TID PRN (Reason: motion sickness) Qty: 30 3RF potassium chloride [Klor-Con 10] 10 mEq tablet extended release 10 meq PO QAM Qty: 30 11RF tamsulosin 0.4 mg capsule 0.4 mg PO HS Qty: 90 3RF Rx Instructions: TAKE 1 CAPSULE BY MOUTH DAILY valacyclovir 500 mg tablet 500 mg PO HS Qty: 90 4RF venlafaxine 150 mg capsule,extended release 24hr 150 mg PO QAM Qty: 90 3RF venlafaxine 75 mg capsule,extended release 24hr 75 mg PO HS Qty: 90 3RF verapamil 240 mg capsule,ext rel. pellets 24 hr 240 mg PO HS 30 Days Qty: 30 5RF sodium chloride 1,000 mg tablet,soluble 1,000 mg PO BID Qty: 60 5RF clonazepam 0.5 mg tablet 0.5 mg PO TID Qty: 90 0RF Rx Instructions: temp increase (DME) compression stockings See Rx Instructions .Route .MEDSUPPLY Qty: 1 0RF Rx Instructions: As directed tobramycin 0.3 % drops 1 drp ophthalmic (eye) Q4H 5 Days Qty: 5 0RF Rx Instructions: PLS DELIVER pantoprazole 40 mg tablet,delayed release (DR/EC) 40 mg PO BID Qty: 180 3RF (DME) wheeled walker with seat See Rx Instructions .Route .MEDSUPPLY Qty: 1 0RF Rx Instructions: As directed cyanocobalamin (vitamin B-12) 1,000 mcg Lozenge 1,000 mcg SUBLINGUAL QAM latanoprost 0.005 % drops 1 drp ophthalmic (eye) HS cyclosporine [Restasis] 0.05 % Dropperette 1 drp OPB Q12H Systane (propylene glycol) 0.4-0.3 % Drops 1 drp OPB QID [id number]-dloydpxdszbnp-wqrf 50-325-40 mg tablet 1 - 2 tab PO DIRECTED PRN (Reason: pain) Rx Instructions: every 4- 5 hours as needed for severe headache. No more than 2-3 days per week, max 6 tabs in 24 hours ketoconazole 2 % cream 1 applic topical BID PRN (Reason: FLARE UPS) Discharge Orders: Discharge Order (Routine); Ordered 11/21/23 Ordered By: Thea Barragan/Other Patient Handouts: Prediabetes, 5 Steps for Eating Healthier Admission Data Admit Date/Time: 11/19/23 14:43 Attending Provider: Thea Salas Admit Provider: Jacky Cunningham Primary Care Provider: Angelina Hobbs Other Providers: Jacky Cunningham Other Interventions: Discharge Summary Assessment (RN) Last Done: 11/21/23 14:02 Coding Level of Care Code 88017 INP/OBS DISCH >30 MIN Diagnoses Stroke-like symptoms R29.90 Primary hypertension I10 Hypertension type: primary hypertension Gastroesophageal reflux disease without esophagitis K21.9 Esophagitis presence: without esophagitis Acquired hypothyroidism E03.9 Hypothyroidism type: acquired Depression with anxiety F41.8 Esophageal dysmotility K22.4 History of shingles Z86.19 Parkinson's disease, unspecified whether dyskinesia present, unspecified whether manifestations fluctuate G20.A1 Dyskinesia presence: unspecified whether dyskinesia Fluctuating manifestations: unspecified whether manifestations fluctuate Parkinsonism type: Parkinson's disease
--- NOTE | 2023-11-21 14:21 | Pharmacy Report ---
- Date of Service November 21, 2023 - Pharmacy CVA/TIA Medication Review Medications to Prevent Stroke handout has been added to the patients discharge packet. Antiplatelet(s) * aspirin 81 mg PO daily + clopidogrel 75 mg PO daily Cholesterol * High intensity statin deferred due to intolerance DVT Prophylaxis * Enoxaparin SQ Therapeutic Anticoagulation * No history of Afib/Aflutter noted Type 2 Diabetes * Patient does not have T2DM
== END 2023-11-21 16:12 | disposition home or self-care (01) ==
LOC: ED 11:38 → EDINP 11:38 → SUATTDRO 14:43 → 2N 11-20 15:18

== ENCOUNTER 2024-03-25 11:47 | Observation (INO) ==
--- NOTE | 2024-03-25 13:31 | CT Scan Report ---
CT head/brain wo con CLINICAL HISTORY: fall, struck R head, on plavix Technique: Contiguous axial CT images of the head were acquired from the base of the skull to the nguyen mitra without intravenous contrast administration. Images were viewed in brain, subdural and bone windo ws. Automated dose lowering techniques and/or adjustment according to patient size were utilized for this exam. Comparison: Comparison is made to Findings: The ventricles, basal cisterns, and cerebral sulci are normal. There is no acute intracranial hemorrh age or evidence of acute territorial infarction. Neither mass effect, shift of the midline structures , nor abnormal extra-axial fluid collections are shown. Imaged portions of the paranasal sinuses and mastoid air cells are clear. The orbits appear normal. There are no acute fractures of the calvaria or scalp swelling. Impression: No acute intracranial hemorrhage, no evidence of acute territorial infarction or other acute intracra nial disease process. ACT 112: Negative or not required by law. Electronically signed by: Diogenes Kurtz M.D. 03/25/2024 1:30 PM
[2024-03-25 14:41] LABS: Basophils # (auto) 0.03 K/uL (0.00-0.20); Basophils % (auto) 0.6 %; Eosinophils # (auto) 0.01 K/uL (0.00-0.50); Eosinophils % (auto) 0.2 %; Hematocrit (blood only) 38.3 % (37.0-47.0); Hemoglobin 13.1 g/dl (12.0-16.0); Immature Granulocytes # (auto) 0.02 K/uL (0.01-0.20); Immature Granulocytes % (auto) 0.4 %; Lymphocytes # (auto) 0.99 K/uL (1.20-3.40); Lymphocytes % (auto) 18.6 %; Mean Corpuscular Hemoglobin 31.3 pg (25.0-34.0); Mean Corpuscular Hgb Conc 34.2 g/dL (32.0-36.0); Mean Corpuscular Volume 91.6 fL (80.0-100.0); Mean Platelet Volume 8.4 fL (9.4-12.4); Monocytes # (auto) 0.37 K/uL (0.11-0.59); Monocytes % (auto) 6.9 %; Neutrophils # (auto) 3.91 K/uL (1.40-6.50); Neutrophils % (auto) 73.3 %; Platelet Count 274 K/uL (130-400); RDW Coefficient of Variation 13.2 % (11.5-14.5); RDW Standard Deviation 44.8 fL (36.4-46.3); Red Blood Count 4.18 M/uL (4.20-5.40); White Blood Count 5.33 K/ul (4.8-10.8)
[2024-03-25 14:52] LABS: INR 0.9 (0.9-1.1); Prothrombin Time 10.3 Seconds (9.0-12.0)
[2024-03-25 15:09] LABS: Alanine Aminotransferase 17 U/L (7-52); Albumin Globulin Ratio 1.7 (0.9-2); Albumin Level 4.8 gm/dl (3.4-5.0); Alkaline Phosphatase 84 U/L (34-104); Anion Gap 9 (3-11); BUN Creatinine Ratio 9.9 (10-20); Bilirubin,Total 0.4 mg/dl (0.2-1.0); Blood Urea Nitrogen 10 mg/dl (6-23); Calcium 9.2 mg/dl (8.6-10.3); Carbon Dioxide 22 mmol/L (21-32); Chloride 95 mmol/L (98-107); Est GFR (African American) 66.7 ml/min; Est GFR (Non-African American) 57.6 ml/min; Globulin 2.8 gm/dl (2.5-4.0); Glucose 88 mg/dl (70-99(Fasting)); Sodium 126 mmol/L (136-145); Total Protein 7.6 gm/dl (6.0-8.3); Troponin I High Sensitivity 3.9 pg/ml (0-14)
[2024-03-25 15:16] LABS: Bilirubin Direct 0.1 mg/dl (0-0.2); Thyroid Stimulating Hormone 1.669 uIu/ml (0.300-4.500)
[2024-03-25 15:25] LABS: Aspartate Aminotransferase 17 U/L (13-39)
--- NOTE | 2024-03-25 16:01 | XRay Report ---
XR ribs LT min 2V w CXR1V CLINICAL HISTORY: fall, left rib pain, SOB, bruising anterolateral TECHNIQUE: 3 views of the left ribs were obtained. Single frontal view of the chest was obtained. Comparison: Comparison is made to chest radiograph 05/09/2023 FINDINGS: No acute fractures are seen. The chest wall and soft tissues are normal. No lines and tubes are seen. The cardiomediastinal silhouette is normal. The lungs are clear. No evid ence of pleural effusion or pneumothorax. IMPRESSION: No evidence of acute fracture or other acute abnormalities in the visualized portions of the chest. ACT 112: Negative or not required by law. Electronically signed by: Diogenes Kurtz M.D. 03/25/2024 3:59 PM
--- NOTE | 2024-03-25 16:40 | History & Physical Report ---
Date of Service March 25, 2024 Assessment & Plan (1) Weakness: Plan: Weakness Patient with weakness and 9 falls in 2 days Factorial including potential right knee cellulitis, acute on chronic hyponatremia, parkinsonism, TIA and deconditioning Patient reports chronic right hand deficits however at time of bedside assessment has no new focal neurologic deficits. She does endorse some transient numbness/tingling in her left hand but this is not present and has not had any speech change, facial droop, or other focal symptoms. She is already on Plavix and anticoagulation. MRI-B ordered to r/o recurrent CVA. (2) Hyponatremia: Plan: Hyponatremia Multiple causes. Patient does have chronic hyponatremia on salt tablets In addition to this she is on venlafaxine associated with hyponatremia, and has recently been on Bactrim for? Right knee infection which can cause moderate to severe hyponatremia Patient's knee has not been improving on Bactrim, switched to Rocephin/Dapto with a surface swab sent for culture Patient also reports she has a very high water/fluid intake at home. Fluid restrict to 1300 cc/day, continue sodium tablets. Urine osmolality, urine sodium, serum osmolality are all pending (3) Cellulitis: Plan: ? Right knee cellulitis. There is demarcated erythema which has increased in warmth, tenderness, and has more bright erythema in the last 2 days per patient she is not toxic appearing and does not have leukocytosis. Has been on Bactrim without improvement Bactrim discontinued both due to worsening while on this and risk of potentiating hyponatremia. Rocephin/Doxy added for cellulitis with MRSA coverage. Culture sent. (4) Chest pain: Plan: Progressive angina Patient reports she had a cath 25 years ago which was normal, has had stress test in the past but not recently. Denies history of stents and heart failure She reports over the last several weeks and very noticeably in the last week she has dyspnea limiting exertion after even 10 feet and this is associated with a squeezing-like chest discomfort/pressure/pain in her chest which resolves with rest. Denies any episodes of shortness of breath/chest pain at rest. She notes she does have some sternal/left parasternal pain since she has fallen which is reproducible on palpation, but this is different than the pain she feels when walking. Echo 2022 was with normal EF, no shunt, mild AR, mild MR, mild LAD Troponin is normal on admission and no acute ischemic EKG changes are seen dobutamine stress test tomorrow to risk stratify Plan Chronic Stable Issues: Hypothyroidism Continue Synthroid Hypertension Continue lisinopril/verapamil IBS Symptomatic care Parkinsonism Supportive care Patient is not on pramipexole which can cause salt wasting DVT prophylaxis: Anticoagulated Disposition: Medical telemetry CODE STATUS: DNR/DNI History of Present Illness Primary Care Provider: BRIEN Chahal Charley is a 68-year-old female with past medical history of parkinsonism, frequent falls, anxiety, IBS, TIA on Plavix, hypothyroidism on Synthroid, hypertension on lisinopril/verapamil who presents to the ER for evaluation of Chest x-ray is without acute findings CT of the chest is without acute findings She is with mild chronic hyponatremia around [id number], acute on chronic hyponatremia on admission 126 On sodium 2g daily with it. 9 falls x2 days. Not strong enough to return home. L rib bruise, ?10th rib fxr. Charley reports she fell Tuesday night. She reports she cut her finger on Tuesday and had some bleeding and was cleaning with a mop and went outside to empty the bucket and fell sideways. She did not lose conciousness. She feels her balance has been very poor, has difficulty maintaining balance. She has parkinsons disease but cannot take the medicine due to side effects. Had swelling in the hands and could not tolerate Sinemet and did not want to go on any inhalers. She reprots her tremors make her very off balance and easy to fall. She is also weaker than normal in the last 2 weeks. Cannot even lift her dog. Has had several strokes. R arm is always weak due to past TIA/CVA and has some numbness in it as well chronically.For the last 48 hours noticed her left arm was weak as well which is unusual for her. Has had some numbness/tingling in the L arm while in the shower. She is terrified of being in the shower and falling. No aphasia, dysarthria. No facial tingling. She is on eliquis DVT/PE. She also is o plaavis for stroke/TIA. Endorses L parasternal pain and tenderness with falls. Does endors she gets some chest pressure when trying to walk up a ramp/steps and this is associated with dyspnea. Strong family history of multiple strokes Did have heart problems 40 years ago. No history of stents or heart failure. Did have a cath with reynold 25 years ago which was normal. Dyspnea and chest pressure on exertion have progressively gotten worse and now cannot walk 10-20 feet without stopping due to pain Mother had to have 7 stents Does mix up words sometimes due to old strokes "I might call a refridgerator an air conditioner" but does not have speech deficits. Denies leg swelling St She is on venlafaxine. Medical History: Reviewed Medications: Reviewed Surgical History: Reviewed Family history: Reviewed Allergies: Reviewed Social History: Reviewed Code Status: DNR/DNI Allergies Allergy/AdvReac Type Severity Reaction Status Date / Time methylprednisolone AdvReac Severe Psychosis Verified 03/21/24 11:01 ciprofloxacin [From Cipro] AdvReac Intermediate nausea Verified 03/21/24 11:01 erythromycin base AdvReac Intermediate VOMITTING Verified 03/21/24 11:01 Macrolide Antibiotics AdvReac Intermediate STOMACH Verified 03/21/24 11:01 UPSET Home Medications Medication Instructions Recorded Confirmed Type cyanocobalamin (vitamin B-12) 1,000 mcg sublingual QAM 05/03/20 03/25/24 History 1,000 mcg sublingual lozenge latanoprost 0.005 % eye drops 1 drp ophthalmic (eye) HS 10/22/21 03/25/24 History mpmjwujput-woxtfrvrsixpm-pzxhnywr 1 - 2 tab PO .Q4-5H PRN pain 06/15/23 03/25/24 History 50 mg-325 mg-40 mg tablet cyclosporine 0.05 % eye drops in a 1 drp OPB Q12H 06/15/23 03/25/24 History dropperette (Restasis) ketoconazole 2 % topical cream 1 applic topical BID PRN FLARE UPS 06/15/23 03/25/24 History peg 400-propylene glycol 0.4 %-0.3 1 drp OPB QID 06/15/23 03/25/24 History % eye drops (Systane (propylene glycol)) amitriptyline 25 mg tablet 25 mg PO HS #90 tabs 08/23/23 03/25/24 Rx buspirone 15 mg tablet 15 mg PO TID #90 tabs 08/23/23 03/25/24 Rx clopidogrel 75 mg tablet 75 mg PO DAILY #90 tabs 08/23/23 03/25/24 Rx diclofenac sodium 1 % topical gel 2 g topical QID PRN Pain #100 grams 08/23/23 03/25/24 Rx (Arthritis Pain (diclofenac)) fluticasone propionate 50 1 spray intranasal QAM PRN Allergy 08/23/23 03/25/24 Rx mcg/actuation nasal Symptoms #16 grams spray,suspension levothyroxine 75 mcg capsule 75 mcg PO DAILY #90 caps 08/23/23 03/25/24 Rx lisinopril 10 mg tablet 10 mg PO QAM #90 tabs 08/23/23 03/25/24 Rx meclizine 25 mg tablet 25 mg PO TID PRN motion sickness 08/23/23 03/25/24 Rx #30 tabs potassium chloride 10 mEq 10 meq PO QAM #30 tabs 08/23/23 03/25/24 Rx tablet,extended release (Klor-Con) tamsulosin 0.4 mg capsule 0.4 mg PO HS #90 caps 08/23/23 03/25/24 Rx valacyclovir 500 mg tablet 500 mg PO HS #90 tabs 08/23/23 03/25/24 Rx venlafaxine 150 mg 150 mg PO QAM #90 caps 08/23/23 03/25/24 Rx capsule,extended release 24 hr venlafaxine 75 mg capsule,extended 75 mg PO HS #90 caps 08/23/23 03/25/24 Rx release 24 hr sodium chloride 1,000 mg soluble 1,000 mg PO BID #60 tabs 10/20/23 03/25/24 Rx tablet pantoprazole 40 mg tablet,delayed 40 mg PO BID #180 tabs 11/15/23 03/25/24 Rx release tobramycin 0.3 % eye drops 1 drp ophthalmic (eye) Q4H 5 days 11/15/23 03/25/24 Rx #5 mL verapamil 240 mg 24 hr 240 mg PO HS 30 days #30 caps 01/11/24 03/25/24 Rx capsule,extended release clonazepam 0.5 mg tablet 0.5 mg PO TID #90 tabs 03/08/24 03/25/24 Rx sulfamethoxazole 800 1 tab PO BID 7 days #14 tabs 03/21/24 03/25/24 Rx mg-trimethoprim 160 mg tablet Past Med/Surg History Medical History Stroke-like symptoms Anemia Tear of medial meniscus of right knee Osteoarthritis of right knee Glaucoma History of shingles takes valtrex daily. no active shingles currently Vertigo Nausea and vomiting after administration of anesthetic agent On anticoagulant therapy Stroke October 22, 2021 -> treated at [facility]. right side weakness. December 21, 2021 Transient ischemic attack (TIA) August 2021. Stroke migraine stroke (unsure of date -- within the last 7 years (since 2014) -> deficits include mild/minor dementia, finding right words, memory loss, right arm and leg weakness. follows with CT Neurology. Parkinson disease History of COVID-19 Aug 17, 2020. no current issues History of anesthesia reaction unsure of the medication drug; reports getting a locked jaw after a surgery (~) (unsure if it was vein stripping surgery or hysterectomy) Hypertension GERD (gastroesophageal reflux disease) Palpitations "irreegular heart beat" Migraine Memory impairment mild - alert and oriented x3 Hypothyroidism Depression with anxiety Hx of venous thrombosis and embolism (09/20/11) unsure of exact date. related to HRT. placed on anticoagulant since. Irritable bowel syndrome (09/20/11) Old myocardial infarct (09/20/11) no stents -- no current cardiology, follows with pcp Restless legs syndrome (09/20/11) Peripheral edema Osteoarthritis of hands, bilateral Esophageal dysmotility Cervical radiculopathy Arthralgia of multiple sites Anemia Acid reflux Achalasia, esophageal Surgical History Hx of cataract extraction RT. History of cardiac cath [facility]. no stents History of esophagogastroduodenoscopy (EGD) History of laparoscopy History of colonoscopy H/O varicose vein ligation and stripping S/P total abdominal hysterectomy with BSO H/O rectocele repair cystocele and rectocele H/O ovarian cystectomy History of appendectomy Family History Mother , age 81 of a stroke Myocardial infarction Stroke Heart disease Father , age 89 of a stroke Stroke Other No family history of adverse response to anesthesia Denies family history of Ovarian cancer Prostate cancer Breast cancer Colorectal cancer Social History Smoking Status: Never smoker Second Hand Exposure: No; Do You Dip or Chew Tobacco: No; Hx Alcohol Use: No Hx Substance Use: No Preferred Language: P[place]in[place] Communication Ability: Effective Visual Impairment: Limited Hearing Ability: Use of Hearing Aid Piano Regulator Required: No Beliefs That Will Affect Care: None marital status: / Current Living Situation: Alone current occupational status: retired 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 NAD. Cooperative. HEENT: Atraumatic, normocephalic. Vision and hearing grossly intact. Pupils equal and reactive to light Pulm: CTAB A&P. -wheezes, -rales, -rhonchi. Symmetrical chest rise. No increased work of breathing. No respiratory distress. Cardiac: RRR, -mrg. Radial pulses intact and symmetrical. L parasternal border TTP. Abdominal: Nontender, nondistended, soft. BS present. 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 Left creative writing professor strength, elbow flexion is intact without deficit. Patient denies paresthesias Right knee with anterior demarcated patch of erythema with overlying warmth and tenderness. Marked with surgical pen Results & Data Results & Data Vital Signs (Past 12 Hours) Vital Signs Temp Pulse Pulse Resp BP BP Pulse Ox 03/25/24 14:34 59 L 14 129/73 98 03/25/24 11:54 36.7 C 74 17 123/71 95 O2 Del Method 03/25/24 14:34 Room Air 03/25/24 11:54 Room Air PG Care Time/CCT Total # of Minutes Spent Total Time Spent with Patient: Total time spent is greater than 50% in coordination of care (as documented) at patient's floor/unit and/or counseling patient: Coding Level of Care Code 98743 INT INP/OBS CARE 3/75MIN Diagnoses Weakness R53.1 Hyponatremia E87.1 Cellulitis L03.90 Chest pain R07.9
[2024-03-25] MEDS ORDERED: NITROGLYCERIN SL 0.4 MG/TAB TAB SL PRN (17:22)
--- NOTE | 2024-03-25 17:23 | Emergency Department Note ---
History of Present Illness General Chief complaint: Rib Injury/Pain Stated complaint: RIB INJURY - FALL Time Seen by Provider: 03/25/24 12:25 History of Present Illness Maximum Pain Intensity: 10 This 68-year-old femaleWith a history of multiple strokes, TIAs, migraine headaches, history of hyponatremia, generalized weakness, osteoarthritis, ataxia, restless leg syndrome, IBS, depression with anxiety, hypothyroidism, and Parkinson's, presents today for evaluation of left-sided anterior rib pain after falling 2 days ago, as well as a right knee abrasion and right forehead injury. The patient has an underlying diagnosis of ataxia and Parkinson's. She states she has had more falls recently than she usually does. She estimates 9 falls in the last 14 days. She states the last time she had an increase in her fall rate, she was hyponatremic. She currently takes 1 g of sodium orally twice per day to correct it. During her last fall, she landed on her right knee as well as her left side and struck her right forehead. She denies any loss of consciousness. 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 She has a small area of ecchymosis under her right eye. She is concerned that she fractured a left rib. She is having difficulty taking a deep breath. She called the on-call nurse, and was instructed to bind her chest with an Oc wrap. She has been squeezing a pillow to her chest to assist with breathing and coughing. She denies any change in vision, speech, or hearing. No nausea or vomiting. No numbness or tingling. She states that the abrasion on her right knee occurred from a fall 10 days ago, and is tender. She wants to be sure it is not infected. She says her PCP instructed her to clean it with soap and water and apply Vaseline over it. She states that the Vaseline caused burning, and she switched to triple antibiotic ointment. It is currently bandaged. She denies any loss of motion of the knee. She has a history of several strokes. R arm is always weak due to past TIA/CVA and has some chronic numbness in it as well.For the last 48 hours she noticed her left arm was weak as well which is unusual for her. She takes Plavix daily. No additional complaints. Home Medications Medication Instructions Recorded Confirmed Type cyanocobalamin (vitamin B-12) 1,000 mcg sublingual QAM 05/03/20 03/29/24 History 1,000 mcg sublingual lozenge latanoprost 0.005 % eye drops 1 drp ophthalmic (eye) HS 10/22/21 03/29/24 History pjuppucfld-ipyjjlslsckls-nyeazewm 1 - 2 tab PO .Q4-5H PRN pain 06/15/23 03/29/24 History 50 mg-325 mg-40 mg tablet cyclosporine 0.05 % eye drops in a 1 drp OPB Q12H 06/15/23 03/29/24 History dropperette (Restasis) ketoconazole 2 % topical cream 1 applic topical BID PRN FLARE UPS 06/15/23 03/29/24 History peg 400-propylene glycol 0.4 %-0.3 1 drp OPB QID 06/15/23 03/29/24 History % eye drops (Systane (propylene glycol)) amitriptyline 25 mg tablet 25 mg PO HS #90 tabs 08/23/23 03/29/24 Rx buspirone 15 mg tablet 15 mg PO TID #90 tabs 08/23/23 03/29/24 Rx clopidogrel 75 mg tablet 75 mg PO DAILY #90 tabs 08/23/23 03/29/24 Rx diclofenac sodium 1 % topical gel 2 g topical QID PRN Pain #100 grams 08/23/23 03/29/24 Rx (Arthritis Pain (diclofenac)) fluticasone propionate 50 1 spray intranasal QAM PRN Allergy 08/23/23 03/29/24 Rx mcg/actuation nasal Symptoms #16 grams spray,suspension levothyroxine 75 mcg capsule 75 mcg PO DAILY #90 caps 08/23/23 03/29/24 Rx lisinopril 10 mg tablet 10 mg PO QAM #90 tabs 08/23/23 03/29/24 Rx meclizine 25 mg tablet 25 mg PO TID PRN motion sickness 08/23/23 03/29/24 Rx #30 tabs potassium chloride 10 mEq 10 meq PO QAM #30 tabs 08/23/23 03/29/24 Rx tablet,extended release (Klor-Con) tamsulosin 0.4 mg capsule 0.4 mg PO HS #90 caps 08/23/23 03/29/24 Rx valacyclovir 500 mg tablet 500 mg PO HS #90 tabs 08/23/23 03/29/24 Rx venlafaxine 150 mg 150 mg PO QAM #90 caps 08/23/23 03/29/24 Rx capsule,extended release 24 hr venlafaxine 75 mg capsule,extended 75 mg PO HS #90 caps 08/23/23 03/29/24 Rx release 24 hr sodium chloride 1,000 mg soluble 1,000 mg PO BID #60 tabs 10/20/23 03/29/24 Rx tablet pantoprazole 40 mg tablet,delayed 40 mg PO BID #180 tabs 11/15/23 03/29/24 Rx release tobramycin 0.3 % eye drops 1 drp ophthalmic (eye) Q4H 5 days 11/15/23 03/29/24 Rx #5 mL verapamil 240 mg 24 hr 240 mg PO HS 30 days #30 caps 01/11/24 03/29/24 Rx capsule,extended release clonazepam 0.5 mg tablet 0.5 mg PO TID #90 tabs 03/08/24 03/29/24 Rx cephalexin 500 mg capsule 500 mg PO BID 8 days #16 caps 03/27/24 03/29/24 Rx diclofenac sodium 1 % topical gel 2 g EXT QID #30 grams 03/27/24 03/29/24 Rx (Voltaren Arthritis Pain) doxycycline hyclate 100 mg capsule 100 mg PO BID 8 days #16 caps 03/27/24 03/29/24 Rx lidocaine 5 % topical patch 1 patch transdermal QAM #30 ea 03/27/24 03/29/24 Rx polyethylene glycol 3350 17 gram 17 g PO DAILY #100 ea 03/27/24 03/29/24 Rx oral powder packet (Miralax) Allergies Allergy/AdvReac Type Severity Reaction Status Date / Time methylprednisolone AdvReac Severe Psychosis Verified 03/29/24 10:02 ciprofloxacin [From Cipro] AdvReac Intermediate nausea Verified 03/29/24 10:02 erythromycin base AdvReac Intermediate VOMITTING Verified 03/29/24 10:02 Macrolide Antibiotics AdvReac Intermediate STOMACH Verified 03/29/24 10:02 UPSET Past Med/Surg History Medical History Anemia Glaucoma Vertigo Nausea and vomiting after administration of anesthetic agent On anticoagulant therapy Stroke October 22, 2021 -> treated at [facility]. right side weakness. December 21, 2021 Transient ischemic attack (TIA) August 2021. Parkinson disease History of COVID-19 Aug 17, 2020. no current issues History of anesthesia reaction unsure of the medication drug; reports getting a locked jaw after a surgery (~) (unsure if it was vein stripping surgery or hysterectomy) Migraine Old myocardial infarct (09/20/11) no stents -- no current cardiology, follows with pcp Cervical radiculopathy Arthralgia of multiple sites Anemia Acid reflux Surgical History Hx of cataract extraction RT. History of cardiac cath SYLVIA Salazar. no stents History of esophagogastroduodenoscopy (EGD) History of laparoscopy History of colonoscopy H/O varicose vein ligation and stripping S/P total abdominal hysterectomy with BSO H/O rectocele repair cystocele and rectocele H/O ovarian cystectomy History of appendectomy Family History Mother , age 81 of a stroke Myocardial infarction Stroke Heart disease Father , age 89 of a stroke Stroke Other No family history of adverse response to anesthesia Denies family history of Ovarian cancer Prostate cancer Breast cancer Colorectal cancer Social History Smoking Status: Never smoker Second Hand Exposure: No; Do You Dip or Chew Tobacco: No; Hx Alcohol Use: No Hx Substance Use: No Preferred Language: Citizen [place] Communication Ability: Effective Visual Impairment: Limited Hearing Ability: Use of Hearing Aid Asbestos Worker Required: No Beliefs That Will Affect Care: None marital status: / Current Living Situation: Alone current occupational status: retired 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 How many Children do You have: 2 Feels Safe at Home: Yes Childhood Exposure to Second-Hand Smoke: No Diet: regular caffeine: Yes during the past year weight has: remained stable Dental Care, Regularly: No Physical Activity Frequency: Daily Seatbelt Use: always Sunscreen Use: Yes (sometimes) Assistive Devices: Cane and Walker Review of Systems A total of 10 systems reviewed and were otherwise negative Physical Exam Vital Signs Vital Signs - 24 hr 03/25/24 11:54 03/25/24 14:34 Temperature 36.7 C Temperature Source Temporal Artery Scan Pulse Rate 74 Pulse Rate [Finger] 59 L Respiratory Rate 17 14 Blood Pressure 123/71 Blood Pressure [Right Arm] 129/73 Blood Pressure Mean 88 Blood Pressure Mean [Right Arm] 91 Pulse Oximetry 95 98 Oxygen Delivery Method Room Air Room Air Sepsis Recent Fever Within 48 Hours No Sepsis New/Unexplained Change in Mental Status N/A Sepsis Action Taken by Nursing No Action Required General: Well-developed, well-nourished, middle-aged female, who looks older than her stated age. Laying in bed. Alert and oriented. No acute distress. Skin: Warm and dry with good turgor. No rashes. No erythema. Small area of ecchymosis under her right eye. She also has ecchymosis present over the anterior lateral left chest wall at the tip of her rib. It is approximately the size of a quarter. The patient is not diaphoretic. There is an abrasion on the anterior aspect of her right knee. Scab is present. No purulent drainage. Mild erythema around the edges. HEENT: Normocephalic atraumatic. Eyes PERRLA, EOMI. No conjunctiva or scleral injection. Ears TMs intact bilaterally with good light reflexes. No erythema or bulging. No hemotympanum. Canals are patent. Nares patent bilaterally without turbinate enlargement. No significant drainage. No epistaxis. Oropharynx without erythema or exudate. Uvula midline, oral mucosa moist. No lesions present. Heart: Heart RRR. No MGR. Peripheral pulses are 2+. Lungs: Lungs are clear to auscultation. No crackles rhonchi or wheezing. Good air movement. The patient is able to take a deep breath. Abdomen: Abdomen was inspected, auscultated, and palpated. Bowel sounds present x 4. Soft, nontender to palpation. No hepato-splenomegaly. No masses noted. No rebound. No CVA tenderness. Musculoskeletal: Gross motor function of the upper and lower extremities is intact and unremarkable. 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 Good range of motion of her knees. There is focal pain with palpation over the anterior lateral left chest wall. No palpable crepitus. She has left- sided rib pain with AP compression of the chest as well as medial lateral compression of the chest. It is focal and reproducible. No pain with palpation over her cervical spine, thoracic spine, or lumbar spine. Supple motion of the hips, and knees, and ankles through passive and active motion. Neurologic: Gross sensation is intact across the upper and lower extremities by soft touch. Cranial nerves II through XII are intact. Course Administered Medications Discontinued Medications Acetaminophen (Acetaminophen 325 Mg Tab) 650 mg PO Q4H PRN PRN Reason: Pain or Fever Stop: 04/24/24 22:14 Last Admin: 03/26/24 20:25 Dose: 650 mg Documented By: Admin: 03/26/24 05:52 Dose: 650 mg Documented By: Admin: 03/25/24 22:28 Dose: 650 mg Documented By: BHARATH Acetaminophen/Butalbital/Caffeine (Butalbital/Acetamin/Caffeine Tab) 1 - 2 tab PO Q4H PRN PRN Reason: SEVERE HEADACHE Stop: 04/24/24 18:22 Last Admin: 03/26/24 11:33 Dose: 1 tab Documented By: CARLITOS Amitriptyline HCl (Amitriptyline Hcl 25 Mg Tab) 25 mg PO HS [facility] Stop: 04/24/24 20:59 Last Admin: 03/26/24 20:11 Dose: 25 mg Documented By: Admin: 03/25/24 20:21 Dose: 25 mg Documented By: BHARATH Atropine Sulfate (Atropine Sulfate 0.1 Mg/Ml 10ml Syr) Confirm Administered Dose 2 mg IV .STK-MED ONE Stop: 03/26/24 09:45 Last Admin: 03/26/24 11:06 Dose: 0.25 mg Documented By: VCORY Buspirone HCl (Buspirone 15 Mg Tab) 15 mg PO TID [facility] Stop: 04/24/24 20:59 Last Admin: 03/27/24 08:43 Dose: 15 mg Documented By: Admin: 03/26/24 20:11 Dose: 15 mg Documented By: Admin: 03/26/24 15:15 Dose: 15 mg Documented By: Admin: 03/26/24 11:32 Dose: 15 mg Documented By: Admin: 03/25/24 20:21 Dose: 15 mg Documented By: BHARATH Clonazepam (Clonazepam 0.5 Mg Tab) 0.5 mg PO TID [facility] Stop: 04/24/24 20:59 Last Admin: 03/27/24 08:43 Dose: 0.5 mg Documented By: Admin: 03/26/24 20:25 Dose: 0.5 mg Documented By: Admin: 03/26/24 15:14 Dose: 0.5 mg Documented By: Admin: 03/26/24 11:59 Dose: 0.5 mg Documented By: Admin: 03/25/24 20:29 Dose: 0.5 mg Documented By: BHARATH Clopidogrel Bisulfate (Clopidogrel Bisulfate 75 Mg Tab) 75 mg PO DAILY [facility] Stop: 04/25/24 08:59 Last Admin: 03/27/24 08:46 Dose: 75 mg Documented By: Admin: 03/26/24 11:35 Dose: 75 mg Documented By: CARLITOS Cyanocobalamin (Cyanocobalamin (B-12) 500 Mcg Tablet) 1,000 mcg PO QAM [facility] Stop: 04/25/24 08:59 Last Admin: 03/27/24 08:43 Dose: 1,000 mcg Documented By: Admin: 03/26/24 11:34 Dose: 1,000 mcg Documented By: CARLITOS Diclofenac Sodium (Diclofenac Sod 1% Gel 100 Gm Tube) 2 gm EXT QID [facility]; Protocol Stop: 04/25/24 08:59 Last Admin: 03/27/24 08:47 Dose: 2 gm Documented By: Admin: 03/26/24 20:10 Dose: 2 gm Documented By: Admin: 03/26/24 17:41 Dose: 2 gm Documented By: Admin: 03/26/24 15:15 Dose: 2 gm Documented By: Admin: 03/26/24 11:31 Dose: 2 gm Documented By: CARLITOS Dobutamine HCl (Dobutamine Hcl 12.5 Mg/Ml 20 Ml Vial) Confirm Administered Dose 250 mg IV .STK-MED ONE Stop: 03/26/24 09:45 Last Admin: 03/26/24 11:06 Dose: 1 dose Documented By: SILKE Ceftriaxone Sodium (Rocephin) 2,000 mg in 50 mls @ 100 mls/hr IV Q24H [facility] Stop: 04/01/24 18:44 Last Infusion: 03/26/24 18:16 Dose: Infused Documented By: Admin: 03/26/24 17:41 Dose: 100 mls/hr Documented By: Infusion: 03/25/24 21:22 Dose: Infused Documented By: Admin: 03/25/24 20:25 Dose: 100 mls/hr Documented By: BHARATH Doxycycline Hyclate 100 mg/ (Dextrose) 100 mls @ 50 mls/hr IV Q12H [facility] Stop: 04/01/24 18:59 Last Infusion: 03/27/24 08:47 Dose: Infused Documented By: Admin: 03/27/24 06:23 Dose: 50 mls/hr Documented By: Infusion: 03/26/24 20:25 Dose: Infused Documented By: Admin: 03/26/24 18:16 Dose: 50 mls/hr Documented By: Infusion: 03/26/24 08:55 Dose: Infused Documented By: Admin: 03/26/24 05:46 Dose: 50 mls/hr Documented By: Infusion: 03/25/24 22:41 Dose: Infused Documented By: Admin: 03/25/24 20:25 Dose: 50 mls/hr Documented By: BHARATH Latanoprost (Latanoprost 0.005% Op Soln 2.5 Ml Btl) 1 drops OP HS [facility] Stop: 04/24/24 20:59 Last Admin: 03/26/24 20:11 Dose: 1 drops Documented By: Admin: 03/25/24 20:25 Dose: 1 drops Documented By: BHARATH Levothyroxine Sodium (Levothyroxine Sodium 75 Mcg Tablet) 75 mcg PO DAILYBB [facility] Stop: 04/25/24 06:29 Last Admin: 03/27/24 06:07 Dose: 75 mcg Documented By: Admin: 03/26/24 05:48 Dose: 75 mcg Documented By: BHARATH Lidocaine (Lidocaine 5% 1 Patch) 1 patch TD QAM [facility] Stop: 04/25/24 08:59 Last Admin: 03/27/24 08:44 Dose: 1 patch Documented By: Admin: 03/26/24 11:37 Dose: 1 patch Documented By: CARLITOS Lisinopril (Lisinopril 10 Mg Tab) 10 mg PO QAM [facility] Stop: 04/25/24 08:59 Last Admin: 03/27/24 08:45 Dose: 10 mg Documented By: Admin: 03/26/24 11:35 Dose: 10 mg Documented By: CARLITOS Metoprolol Tartrate (Metoprolol Tartrate 1 Mg/Ml Vial) Confirm Administered Dose 10 mg IV .STK-MED ONE Stop: 03/26/24 09:45 Last Admin: 03/26/24 11:07 Dose: 2.5 mg Documented By: SILKE Miscellaneous (Remove Lidoderm Patch) 1 each N/A DAILY@2100 [facility] Stop: 04/25/24 20:59 Last Admin: 03/26/24 20:12 Dose: 1 each Documented By: BHARATH Morphine Sulfate (Morphine Sulfate 2 Mg/Ml Carp) 2 mg IV NOW STA Stop: 03/25/24 23:47 Last Admin: 03/26/24 00:23 Dose: 2 mg Documented By: BHARATH Pantoprazole Sodium (Pantoprazole 40 Mg Tab) 40 mg PO BID [facility] Stop: 04/24/24 20:59 Last Admin: 03/27/24 08:45 Dose: 40 mg Documented By: Admin: 03/26/24 20:11 Dose: 40 mg Documented By: Admin: 03/26/24 11:32 Dose: 40 mg Documented By: Admin: 03/25/24 20:19 Dose: 40 mg Documented By: BHARATH Polyethylene Glycol (Polyethylene (Miralax) 17 Gm Pack) 17 gm PO DAILY [facility] Stop: 04/25/24 14:29 Last Admin: 03/27/24 08:47 Dose: 17 gm Documented By: Admin: 03/26/24 15:15 Dose: 17 gm Documented By: CARLITOS Potassium Chloride (Potassium Chloride 10 Meq Tabcr) 10 meq PO QAM [facility] Stop: 04/25/24 08:59 Last Admin: 03/27/24 08:43 Dose: 10 meq Documented By: Admin: 03/26/24 11:35 Dose: 10 meq Documented By: CARLITOS Sodium Chloride (Sodium Chloride 1 Gm Tablet) 1 gm PO BID [facility] Stop: 04/24/24 20:59 Last Admin: 03/27/24 08:45 Dose: 1 gm Documented By: Admin: 03/26/24 20:12 Dose: 1 gm Documented By: Admin: 03/26/24 11:33 Dose: 1 gm Documented By: Admin: 03/25/24 20:21 Dose: 1 gm Documented By: BHARATH Tamsulosin HCl (Tamsulosin Hcl 0.4 Mg Cap) 0.4 mg PO HS [facility] Stop: 04/24/24 20:59 Last Admin: 03/26/24 20:11 Dose: 0.4 mg Documented By: Admin: 03/25/24 20:21 Dose: 0.4 mg Documented By: BHARATH Tobramycin Sulfate (Tobramycin Sulf 0.3% Op Soln 5 Ml Btl) 1 drops OP Q4H [facility] Stop: 04/04/24 18:59 Last Admin: 03/27/24 06:07 Dose: 1 drops Documented By: Admin: 03/27/24 02:42 Dose: 1 drops Documented By: Admin: 03/26/24 23:42 Dose: 1 drops Documented By: Admin: 03/26/24 18:17 Dose: 1 drops Documented By: Admin: 03/26/24 15:16 Dose: 1 drops Documented By: Admin: 03/26/24 11:36 Dose: 1 drops Documented By: Admin: 03/26/24 05:48 Dose: 1 drops Documented By: Admin: 03/26/24 03:31 Dose: Not Given Documented By: Admin: 03/26/24 00:23 Dose: 1 drops Documented By: Admin: 03/25/24 20:18 Dose: 1 drops Documented By: BHARATH Venlafaxine HCl (Venlafaxine Hcl Xr 75 Mg Capxr) 75 mg PO [facility] Stop: 04/24/24 20:59 Last Admin: 03/26/24 20:11 Dose: 75 mg Documented By: Admin: 03/25/24 20:21 Dose: 75 mg Documented By: BHARATH Venlafaxine HCl (Venlafaxine Hcl Xr 150 Mg Capxr) 150 mg PO QA [facility] Stop: 04/25/24 08:59 Last Admin: 03/27/24 08:46 Dose: 150 mg Documented By: Admin: 03/26/24 11:33 Dose: 150 mg Documented By: CARLITOS Verapamil HCl (Verapamil Hcl 240 Mg Tabcr) 240 mg PO HS [facility] Stop: 04/24/24 20:59 Last Admin: 03/26/24 20:26 Dose: Not Given Documented By: Admin: 03/25/24 20:20 Dose: 240 mg Documented By: BHARATH Medical Decision Making Differential Diagnosis Hyponatremia, rib fracture, pneumothorax, stroke, rib contusion, anemia, dizziness, worsening Parkinson's Medical Records Attestation: I reviewed the patient's medical records. Home Medications Current Medication List: was personally reviewed by me Laboratory Data CBC obtained today shows a white count of 5.33. H&H of 13.1 and 38.3. Platelets 274,000. INR 0.9. Sodium 126. Potassium 4.0. Chloride 95. Anion gap of 9. BUN 10 and creatinine 1.01. Normal LFTs. Normal TSH. Troponin is normal at 3.9. Osmolality is low at 266. 03/27/24 05:53 03/27/24 05:53 Lab Results 03/25/24 Range/Units 14:30 WBC 5.33 (4.8-10.8) K/ul RBC 4.18 L (4.20-5.40) M/uL Hgb 13.1 (12.0-16.0) g/dl Hct 38.3 (37.0-47.0) % MCV 91.6 (80.0-100.0) fL MCH 31.3 (25.0-34.0) pg MCHC 34.2 (32.0-36.0) g/dL RDW Std Deviation 44.8 (36.4-46.3) fL RDW Coeff of Ana 13.2 (11.5-14.5) % Plt Count 274 (130-400) K/uL MPV 8.4 L (9.4-12.4) fL Immature Gran % (Auto) 0.4 % Neut % (Auto) 73.3 % Lymph % (Auto) 18.6 % [place] % (Auto) 6.9 % Eos % (Auto) 0.2 % Baso % (Auto) 0.6 % Neut # (Auto) 3.91 (1.40-6.50) K/uL Lymph # (Auto) 0.99 L (1.20-3.40) K/uL [place] # (Auto) 0.37 (0.11-0.59) K/uL Eos # (Auto) 0.01 (0.00-0.50) K/uL Baso # (Auto) 0.03 (0.00-0.20) K/uL Immature Gran # (Auto) 0.02 (0.01-0.20) K/uL PT 10.3 (9.0-12.0) Seconds INR 0.9 (0.9-1.1) Sodium 126 L (136-145) mmol/L Potassium 4.0 (3.5-5.1) mmol/L Chloride 95 L (98-107) mmol/L Carbon Dioxide 22 (21-32) mmol/L Anion Gap 9 (3-11) BUN 10 (6-23) mg/dl Creatinine 1.01 (0.6-1.2) mg/dl Est Cr Clr Drug Dosing Not Reportable Est GFR ( Amer) 66.7 ml/min Est GFR (Non-Af Amer) 57.6 ml/min BUN/Creatinine Ratio 9.9 L (10-20) Glucose 88 (70-99(Fasting)) mg/dl Osmolality 266 L (280-300) mOsm/kg Calcium 9.2 (8.6-10.3) mg/dl Total Bilirubin 0.4 (0.2-1.0) mg/dl Direct Bilirubin 0.1 (0-0.2) mg/dl AST 17 (13-39) U/L ALT 17 (7-52) U/L Alkaline Phosphatase 84 (34-104) U/L Troponin I High Sens 3.9 (0-14) pg/ml Total Protein 7.6 (6.0-8.3) gm/dl Albumin 4.8 (3.4-5.0) gm/dl Globulin 2.8 (2.5-4.0) gm/dl Albumin/Globulin Ratio 1.7 (0.9-2) TSH 1.669 (0.300-4.500) uIu/ml Imaging Data My Impression: CT scan imaging of her head was obtained. This was reviewed by me and read by radiology. No acute intracranial hemorrhage or other abnormality. Chest x-ray with rib films was also obtained. These were reviewed by me and read by radiology. There is no evidence of acute fracture by radiology report. I am concerned about a left 10th rib fracture at the tip. No evidence of pneumothorax or pleural effusion. Radiologist's Impression: Head CT 03/25/24 12:42 CT head/brain wo con CLINICAL HISTORY: fall, struck R head, on plavix Technique: Contiguous axial CT images of the head were acquired from the base of the skull to the vertex without intravenous contrast administration. Images were viewed in brain, subdural and bone windows. Automated dose lowering techniques and/or adjustment according to patient size were utilized for this exam. Comparison: Comparison is made to Findings: The ventricles, basal cisterns, and cerebral sulci are normal. There is no acute intracranial hemorrhage or evidence of acute territorial infarction. Neither mass effect, shift of the midline structures, nor abnormal extra-axial fluid collections are shown. Imaged portions of the paranasal sinuses and mastoid air cells are clear. The orbits appear normal. There are no acute fractures of the calvaria or scalp swelling. Impression: No acute intracranial hemorrhage, no evidence of acute territorial infarction or other acute intracranial disease process. ACT 112: Negative or not required by law. Electronically signed by: Diogenes Kurtz M.D. 03/25/2024 1:30 PM Ribs w/Chest X-Ray 03/25/24 12:42 XR ribs LT min 2V w [id number] CLINICAL HISTORY: fall, left rib pain, SOB, bruising anterolateral TECHNIQUE: 3 views of the left ribs were obtained. Single frontal view of the chest was obtained. Comparison: Comparison is made to chest radiograph 05/09/2023 FINDINGS: No acute fractures are seen. The chest wall and soft tissues are normal. No lines and tubes are seen. The cardiomediastinal silhouette is normal. The lungs are clear. No evidence of pleural effusion or pneumothorax. IMPRESSION: No evidence of acute fracture or other acute abnormalities in the visualized portions of the chest. ACT 112: Negative or not required by law. Electronically signed by: Diogenes Kurtz M.D. 03/25/2024 3:59 PM Blood Pressure Blood Pressure Findings: Normal blood pressure MDM Narrative The patient was evaluated in room D4. Conservative care measures were discussed. IV was established. Labs were obtained. The patient was placed on a security monitor and remained in a normal sinus rhythm with a rate in the 70s. CT scan imaging of the head and radiographic imaging of the ribs was also obtained. CT was unremarkable. Ribs were concerning for a possible left 10th rib fracture at the tip. This is in the area of her current ecchymosis. The patient was found to be significantly hyponatremic. She normally has issues with sodium, but this is the lowest she has been in quite some time. This is despite her her supplementation of 2 g of sodium per day. Given her increase in falls, hyponatremia, and visible injuries, admission was recommended to her. She was in agreement. Consultation was obtained from the [facility] hospitalist. Please see Dr. Cunningham's dictation for final management. The patient remained stable while in the ED. Care plan was discussed with Dr. Calvin. Impression & Plan Hyponatremia, Falls Admission to the hospitalist service Discharge Plan Visit Data Chief Complaint: Rib Injury/Pain Stated Complaint: RIB INJURY - FALL ED Provider: Bryanna Calvin ED Midlevel Provider: Juan Manuel Cuba Discharge Problem: Hyponatremia, Falls Patient Disposition: Admitted As Inpatient Discharge Instructions Interventions: ED Discharge Assessment Last Done: 03/25/24 17:58 Discharge Problem: Falls Qualifiers: Encounter type: initial encounter Qualified Code(s): W19.XXXA - Unspecified fall, initial encounter
[2024-03-25] MEDS ORDERED: MECLIZINE HCL 25 MG TAB PO PRN (18:23)
[2024-03-25] MEDS ORDERED: ARTIFICIAL TEARS OP PRN (18:35)
[2024-03-25] MEDS: TOBRAMYCIN SULF 0.3% OP SOLN 5 ML BTL OP SCH (20:18)
[2024-03-25] MEDS: PANTOprazole 40 MG TAB PO SCH (20:19)
[2024-03-25] MEDS: VERAPAMIL HCL 240 MG TABCR PO SCH (20:20)
[2024-03-25] MEDS: TAMSULOSIN HCL 0.4 MG CAP PO SCH (20:21)
[2024-03-25] MEDS: busPIRone 15 MG TAB PO SCH (20:21)
[2024-03-25] MEDS: AMITRIPTYLINE HCL 25 MG TAB PO SCH (20:21)
[2024-03-25] MEDS: VENLAFAXINE HCL XR 75 MG CAPXR PO SCH (20:21)
[2024-03-25] MEDS: SODIUM CHLORIDE 1 GM TABLET PO SCH (20:21)
[2024-03-25] MEDS: cefTRIAXone SODIUM 2,000 MG/50 ML BAG IV SCH (20:25)
[2024-03-25] MEDS: DOXYCYCLINE HYCLATE 100 MG in DEXTROSE 5% MINI-B 100 ML IV SCH (20:25)
[2024-03-25] MEDS: LATANOPROST 0.005% OP SOLN 2.5 ML BTL OP SCH (20:25)
[2024-03-25] MEDS: clonazePAM 0.5 MG TAB PO SCH (20:29)
[2024-03-25] MEDS: ACETAMINOPHEN 325 MG TAB PO PRN (22:28)
[2024-03-25 23:42] LABS: Anion Gap 7 (3-11); Blood Urea Nitrogen 10 mg/dl (6-23); Calcium 8.9 mg/dl (8.6-10.3); Carbon Dioxide 22 mmol/L (21-32); Chloride 99 mmol/L (98-107); Creatinine Clr Calc Pharmacy 51.7 ml/min; Est GFR (African American) 67.5 ml/min; Est GFR (Non-African American) 58.3 ml/min; Glucose 93 mg/dl (70-99(Fasting)); Sodium 128 mmol/L (136-145)
--- NOTE | 2024-03-26 00:15 | Magnetic Resonance Report ---
Exam(s): MRI HEAD Without Contrast EXAM: MR Head Without Intravenous Contrast CLINICAL HISTORY: Reason for exam: CVA r/o. TECHNIQUE: Magnetic resonance images of the head/brain without intravenous contrast in multiple planes. COMPARISON: Comparison made to prior head CT from June 16, 2023. FINDINGS: Brain: Moderate nonspecific changes. There are dilated perivascular spaces or remote lacunar infarcts of the right basal ganglia. The flow voids at the base the brain are intact. No mass. No hemorrhage. No acute infarct. Ventricles: Mild ventriculomegaly. Bones/joints: Unremarkable. No acute fracture. Sinuses: Unremarkable as visualized. No acute sinusitis. Mastoid air cells: Unremarkable as visualized. No mastoid effusion. Orbits: Bilateral lens replacements. IMPRESSION: No evidence of acute intracranial pathology. Electronically signed by: Zuri Lange MD 03/26/24 00:14 AM
[2024-03-26] MEDS: MoRPHine SULFATE 2 MG/ML CARP IV STA (00:23)
[2024-03-26] MEDS: LEVOTHYROXINE SODIUM 75 MCG TABLET PO SCH (05:48)
[2024-03-26 08:12] LABS: Basophils # (auto) 0.03 K/uL (0.00-0.20); Basophils % (auto) 0.8 %; Eosinophils # (auto) 0.06 K/uL (0.00-0.50); Eosinophils % (auto) 1.6 %; Hematocrit (blood only) 34.9 % (37.0-47.0); Hemoglobin 11.7 g/dl (12.0-16.0); Immature Granulocytes # (auto) 0.01 K/uL (0.01-0.20); Immature Granulocytes % (auto) 0.3 %; Lymphocytes # (auto) 0.96 K/uL (1.20-3.40); Mean Corpuscular Hemoglobin 31.1 pg (25.0-34.0); Mean Corpuscular Hgb Conc 33.5 g/dL (32.0-36.0); Mean Corpuscular Volume 92.8 fL (80.0-100.0); Mean Platelet Volume 8.9 fL (9.4-12.4); Monocytes # (auto) 0.38 K/uL (0.11-0.59); Monocytes % (auto) 10.3 %; Neutrophils # (auto) 2.25 K/uL (1.40-6.50); Platelet Count 245 K/uL (130-400); RDW Coefficient of Variation 13.7 % (11.5-14.5); RDW Standard Deviation 47.3 fL (36.4-46.3); Red Blood Count 3.76 M/uL (4.20-5.40); White Blood Count 3.69 K/ul (4.8-10.8)
--- NOTE | 2024-03-26 08:29 | Electrocardiogram Report ---
Test Reason : Blood Pressure : / mmHG Vent. Rate : 062 BPM Atrial Rate : 062 BPM P-R Int : 158 ms QRS Dur : 084 ms QT Int : 428 ms P-R-T Axes : 044 011 068 degrees QTc Int : 434 ms Normal sinus rhythm Normal ECG When compared with ECG of 19-NOV-2023 11:52, No significant change was found Confirmed by Rick Connolly ([id number]) on 03/26/2024 8:29:42 AM Referred By: Angelina Hobbs Confirmed By:Logan Connolly
[2024-03-26] MEDS ORDERED: PNEUMOCOCCAL VACCINE (PCV20) 20-VAL CONJ-DIP CRM/PF 0.5 ML SYR IM ONE (09:00)
[2024-03-26 09:26] LABS: Anion Gap 8 (3-11); BUN Creatinine Ratio 9.2 (10-20); Blood Urea Nitrogen 10 mg/dl (6-23); Carbon Dioxide 23 mmol/L (21-32); Chloride 99 mmol/L (98-107); Creatinine Clr Calc Pharmacy 47.4 ml/min; Est GFR (African American) 60.8 ml/min; Est GFR (Non-African American) 52.5 ml/min; Glucose 107 mg/dl (70-99(Fasting)); Sodium 130 mmol/L (136-145)
--- NOTE | 2024-03-26 10:16 | Hospitalist Progress Note ---
Date of Service March 26, 2024 Assessment & Plan (1) Weakness: Plan: - Patient with weakness and 9 falls in 2 days Suspected multifactorial etiology including right knee cellulitis, acute on chronic hyponatremia, parkinsonism, TIA and deconditioning Chronic right hand deficits. No new focal neurologic deficits. Denies speech change, facial droop, or other focal symptoms. - On Plavix for antiplatelet therapy - MRI Brain without signs of recurrent CVA - Would recommend minimizing polypharmacy and sedating agents - Will consult PT and OT to determine pt's accessibility needs. (2) Chest pain: Plan: - Progressive angina - Denies history of stents and heart failure Pt reported dyspnea on exertion over the last several weeks. Denies any episodes of shortness of breath/chest pain at rest. - Sternal/left parasternal pain since fall, reproducible on palpation. This is different than the pain she feels when walking. Echo 2022 was with normal EF, no shunt, mild AR, mild MR, mild LAD Troponin is normal on admission and no acute ischemic EKG changes appreciated Stress test today was normal. - Will continue to monitor. (3) Hyponatremia: Plan: - Hx of chronic hyponatremia, on salt tablets On venlafaxine and recently Bactrim for right knee infection which can cause moderate to severe hyponatremia. Abx switched to Rocephin/Dapto. Surface swab sent for culture showed no growth. Fluid restrict to 1300 cc/day, continue sodium tablets. Pt's serum sodium up from 126 to 130 mmol/L at this time. - Will continue to monitor lab work. (4) Cellulitis: Plan: - Right knee cellulitis with demarcated erythema, warmth, tenderness. No leukocytosis. - Was on Bactrim without improvement. Bactrim discontinued both due to worsening while on this and risk of potentiating hyponatremia. - Now on Rocephin/Doxy for MRSA coverage. Surface swab sent for culture - NGTD x24, gram stain without organisms - Will continue to monitor lesion for improvement. Plan Chronic Stable Issues: Hypothyroidism Continue Synthroid Hypertension Continue lisinopril/verapamil IBS Symptomatic care Parkinsonism Supportive care Patient is not on pramipexole because it can cause salt wasting - did not tolerate Simemet DVT prophylaxis: Anticoagulated Disposition: Medical telemetry CODE STATUS: DNR/DNI Elmer Seals, MS2, contributed to the history taking, examination, and clinical decision making regarding this patient. Admission and Anticipated Discharge Date Admission Date: March 25, 2024 Supervising Physician Co-Signing Physician Notes I personally examined the patient and verified gonzalez points of history and exam, discussed case, and agree with decision making and plan documented by Dr. Fox with contribution from Moris GOODMAN. Patient lying comfortably in bed during exam. Reviewed that she has had multiple falls in the past few days where she has hit multiple parts of her body. Scabs on right anterior knee with surrounding erythema within marker lines. Patient remains on Rocephin and doxycycline for cellulitis that was not responsive to Bactrim therapy. Wound culture pending. Patient with multiple ecchymoses due to anticoagulation. Stress echo without significant ST or T wave segment changes during infusion, baseline echo with normal LV function and wall motion. Hyponatremia improving, current sodium 130, on fluid restriction and salt tabs. PT will continue while patient hospitalized. Arabella Whitehead is a 68yo Female w/ a pmh of parkinsonism, frequent falls, anxiety, IBS, TIA on Plavix, hypothyroidism on Synthroid, HTN on lisinopril/verapamil who presents to the ER for evaluation of chest and leg pain. Today she states she feels "absolutely horrible" due to her left sided rib pain and right knee cellulitis. Review of Systems 2 Review of Systems: All systems reviewed & are unremarkable except as noted in Subjective Physical Exam 2 Physical Exam: General Alert and oriented x 4, well appearing, in no acute distress. HEENT Normocephalic, atraumatic, pupil equal round reactive to light, moist mucous membranes, neck supple, trachea midline, no lymphadenopathy, no thyromegaly. Respiratory Chest is clear to auscultation bilaterally with no wheezing, rales, or rhonchi. Cardiovascular Heart has regular rate and rhythm with no rubs, murmurs, or gallops. No carotid bruits, JVD, or lower extremity edema. Abdomen Soft, nontender, nondistended, normal bowel sounds, no hepatosplenomegaly, no CVA tenderness. Musculoskeletal 2+ distal pulses palpated in all four ex tremities. No spinal abnormalities or step-offs. Unable to ambulate independently. Extremities: Weakness to right rejoiner strength. Left rejoiner strength, elbow flexion is intact without deficit. Patient denies paresthesias Right knee with anterior demarcated patch of erythema with overlying warmth and tenderness. Borders retreated by ~1cm from surgical pen outline of lesion upon admission. Neurologic Cranial nerves II through XII intact, deep tendon reflexes 2+ bilaterally, coordination, sensation to sharp and dull stimuli. Psychiatric Appropriate mood and affect. Results & Data Results & Data Vital Signs (Past 12 Hours) Vital Signs Temp Pulse Pulse Resp BP Pulse Ox O2 Del Method 03/26/24 07:54 36.7 C 56 L 14 117/76 97 Room Air 03/26/24 07:14 53 L 03/26/24 03:00 36.6 C 52 L 18 93/57 L 94 Room Air 03/26/24 02:32 60 03/25/24 23:17 36.3 C L 60 18 119/75 94 Room Air 03/25/24 21:42 Room Air Laboratory Results 03/26/24 07:31 03/26/24 11:[address] 03/25/24 12:42 CT head/brain wo con CLINICAL HISTORY: fall, struck R head, on plavix Impression: No acute intracranial hemorrhage, no evidence of acute territorial infarction or other acute intracranial disease process. Electronically signed by: Diogenes Kurtz M.D. 03/25/2024 1:30 PM Ribs w/Chest X-Ray 03/25/24 12:42 CLINICAL HISTORY: fall, left rib pain, SOB, bruising anterolateral FINDINGS: No acute fractures are seen. The chest wall and soft tissues are normal. No lines and tubes are seen. The cardiomediastinal silhouette is normal. The lungs are clear. No evidence of pleural effusion or pneumothorax. IMPRESSION: No evidence of acute fracture or other acute abnormalities in the visualized portions of the chest. Electronically signed by: Diogenes Kurtz M.D. 03/25/2024 3:59 PM Brain MRI 03/25/24 17:22 CLINICAL HISTORY: Reason for exam: CVA r/o. FINDINGS: Brain: Moderate nonspecific changes. There are dilated perivascular spaces or remote lacunar infarcts of the right basal ganglia. The flow voids at the base the brain are intact. No mass. No hemorrhage. No acute infarct. Ventricles: Mild ventriculomegaly. Bones/joints: Unremarkable. No acute fracture. Sinuses: Unremarkable as visualized. No acute sinusitis. Mastoid air cells: Unremarkable as visualized. No mastoid effusion. Orbits: Bilateral lens replacements. IMPRESSION: No evidence of acute intracranial pathology. Electronically signed by: Zuri Lange MD 03/26/24 00:14 AM Resident Activity Tracking Resident Involvement: Resident Care Provided Care Provided: Adult Hospital Medicine (2) Chest pain Chest pain type: unspecified Qualified Code(s): R07.9 - Chest pain, unspecified (4) Cellulitis Laterality: right Site of cellulitis: extremity Site of cellulitis of extremity: lower extremity Qualified Code(s): L03.115 - Cellulitis of right lower limb
[2024-03-26] MEDS: ATROPINE SULFATE 0.1 MG/ML 10ML SYR IV ONE (11:06)
[2024-03-26] MEDS: DOBUTamine HCL 12.5 MG/ML 20 ML VIAL IV ONE (11:06)
[2024-03-26] MEDS: METOPROLOL TARTRATE 1 MG/ML VIAL IV ONE (11:07)
[2024-03-26] MEDS: DICLOFENAC SOD 1% GEL 100 GM TUBE EXT SCH (11:31)
[2024-03-26] MEDS: VENLAFAXINE HCL XR 150 MG CAPXR PO SCH (11:33)
[2024-03-26] MEDS: BUTALBITAL/ACETAMIN/CAFFEINE TAB PO PRN (11:33)
[2024-03-26] MEDS: CYANOCOBALAMIN (B-12) 500 MCG TABLET PO SCH (11:34)
[2024-03-26] MEDS: CLOPIDOGREL BISULFATE 75 MG TAB PO SCH (11:35)
[2024-03-26] MEDS: POTASSIUM CHLORIDE 10 MEQ TABCR PO SCH (11:35)
[2024-03-26] MEDS: lisinopril 10 MG TAB PO SCH (11:35)
[2024-03-26] MEDS: LIDOCAINE 5% 1 PATCH TD SCH (11:37)
[2024-03-26] MEDS: POLYETHYLENE (MIRALAX) 17 GM PACK PO SCH (15:15)
--- NOTE | 2024-03-26 15:35 | XCELERA ---
[id number]\[id number]
[2024-03-27 06:53] LABS: Basophils # (auto) 0.03 K/uL (0.00-0.20); Basophils % (auto) 0.7 %; Eosinophils # (auto) 0.08 K/uL (0.00-0.50); Eosinophils % (auto) 1.8 %; Hematocrit (blood only) 34.3 % (37.0-47.0); Hemoglobin 11.5 g/dl (12.0-16.0); Immature Granulocytes # (auto) 0.01 K/uL (0.01-0.20); Immature Granulocytes % (auto) 0.2 %; Lymphocytes # (auto) 1.42 K/uL (1.20-3.40); Lymphocytes % (auto) 32.3 %; Mean Corpuscular Hemoglobin 31.1 pg (25.0-34.0); Mean Corpuscular Hgb Conc 33.5 g/dL (32.0-36.0); Mean Corpuscular Volume 92.7 fL (80.0-100.0); Mean Platelet Volume 8.6 fL (9.4-12.4); Monocytes # (auto) 0.55 K/uL (0.11-0.59); Monocytes % (auto) 12.5 %; Neutrophils % (auto) 52.5 %; Platelet Count 236 K/uL (130-400); RDW Coefficient of Variation 13.6 % (11.5-14.5); RDW Standard Deviation 46.3 fL (36.4-46.3); White Blood Count 4.39 K/ul (4.8-10.8)
[2024-03-27 07:50] LABS: Calcium 9.2 mg/dl (8.6-10.3); Creatinine Clr Calc Pharmacy 51.6 ml/min; Est GFR (African American) 67.5 ml/min; Est GFR (Non-African American) 58.3 ml/min; Potassium 4.9 mmol/L (3.5-5.1)
--- NOTE | 2024-03-27 11:14 | Discharge Summary ---
Date of Service March 27, 2024 Admission HPI Per Admitting Provider Charley is a 68-year-old female with past medical history of parkinsonism, frequent falls, anxiety, IBS, TIA on Plavix, hypothyroidism on Synthroid, hypertension on lisinopril/verapamil who presents to the ER for evaluation of Chest x-ray is without acute findings CT of the chest is without acute findings She is with mild chronic hyponatremia around [id number], acute on chronic hyponatremia on admission 126 On sodium 2g daily with it. 9 falls x2 days. Not strong enough to return home. L rib bruise, ?10th rib fxr. Charley reports she fell Tuesday night. She reports she cut her finger on Tuesday and had some bleeding and was cleaning with a mop and went outside to empty the bucket and fell sideways. She did not lose conciousness. She feels her balance has been very poor, has difficulty maintaining balance. She has parkinsons disease but cannot take the medicine due to side effects. Had swelling in the hands and could not tolerate Sinemet and did not want to go on any inhalers. She reprots her tremors make her very off balance and easy to fall. She is also weaker than normal in the last 2 weeks. Cannot even lift her dog. Has had several strokes. R arm is always weak due to past TIA/CVA and has some numbness in it as well chronically.For the last 48 hours noticed her left arm was weak as well which is unusual for her. Has had some numbness/tingling in the L arm while in the shower. She is terrified of being in the shower and falling. No aphasia, dysarthria. No facial tingling. She is on eliquis DVT/PE. She also is o plaavis for stroke/TIA. Endorses L parasternal pain and tenderness with falls. Does endors she gets some chest pressure when trying to walk up a ramp/steps and this is associated with dyspnea. Strong family history of multiple strokes Did have heart problems 40 years ago. No history of stents or heart failure. Did have a cath with reynold 25 years ago which was normal. Dyspnea and chest pressure on exertion have progressively gotten worse and now cannot walk 10-20 feet without stopping due to pain Mother had to have 7 stents Does mix up words sometimes due to old strokes "I might call a refridgerator an air conditioner" but does not have speech deficits. Denies leg swelling St She is on venlafaxine. Medical History: Reviewed Medications: Reviewed Surgical History: Reviewed Family history: Reviewed Allergies: Reviewed Social History: Reviewed Code Status: DNR/DNI Admission Exam Per Admitting Provider General: A&Ox3. NAD. Cooperative. HEENT: Atraumatic, normocephalic. Vision and hearing grossly intact. Pupils equal and reactive to light Pulm: CTAB A&P. -wheezes, -rales, -rhonchi. Symmetrical chest rise. No increased work of breathing. No respiratory distress. Cardiac: RRR, -mrg. Radial pulses intact and symmetrical. L parasternal border TTP. Abdominal: Nontender, nondistended, soft. BS present. Extremities: Weakness to right teacher asst strength, right hip flexion, ankle dorsiflexion/plantarflexion are intact. Left teacher asst strength, elbow flexion is intact without deficit. Patient denies paresthesias Right knee with anterior demarcated patch of erythema with overlying warmth and tenderness. Marked with surgical pen Principal Diagnosis cellulitis Discharge Exam Gen: well appearing patient in NAD HEENT: AT NC MMM Resp: CTAB no wheezing no increased work of breathing CV: RRR no m/r/g clinically well perfused Abd: non-distended MSK: no obvious deformities Skin: no rashes or bruising Neuro: alert and oriented Psych: appropriate mood and affect Discharge Data Allergies Allergy/AdvReac Type Severity Reaction Status Date / Time methylprednisolone AdvReac Severe Psychosis Verified 03/21/24 11:01 ciprofloxacin [From Cipro] AdvReac Intermediate nausea Verified 03/21/24 11:01 erythromycin base AdvReac Intermediate VOMITTING Verified 03/21/24 11:01 Macrolide Antibiotics AdvReac Intermediate STOMACH Verified 03/21/24 11:01 UPSET Consultations 03/25/24 16:24 ED Decision to Admit Stat Ordered Studies Head CT 03/25/24 12:42 Findings: The ventricles, basal cisterns, and cerebral sulci are normal. There is no acute intracranial hemorrhage or evidence of acute territorial infarction. Neither mass effect, shift of the midline structures, nor abnormal extra-axial fluid collections are shown. Imaged portions of the paranasal sinuses and mastoid air cells are clear. The orbits appear normal. There are no acute fractures of the calvaria or scalp swelling. Impression: No acute intracranial hemorrhage, no evidence of acute territorial infarction or other acute intracranial disease process. Ribs w/Chest X-Ray 03/25/24 12:42 FINDINGS: No acute fractures are seen. The chest wall and soft tissues are normal. No lines and tubes are seen. The cardiomediastinal silhouette is normal. The lungs are clear. No evidence of pleural effusion or pneumothorax. IMPRESSION: No evidence of acute fracture or other acute abnormalities in the visualized portions of the chest. Brain MRI 03/25/24 17:22 FINDINGS: Brain: Moderate nonspecific changes. There are dilated perivascular spaces or remote lacunar infarcts of the right basal ganglia. The flow voids at the base the brain are intact. No mass. No hemorrhage. No acute infarct. Ventricles: Mild ventriculomegaly. Bones/joints: Unremarkable. No acute fracture. Sinuses: Unremarkable as visualized. No acute sinusitis. Mastoid air cells: Unremarkable as visualized. No mastoid effusion. Orbits: Bilateral lens replacements. IMPRESSION: No evidence of acute intracranial pathology. Hospital Course (1) Weakness: Patient reportedly with multiple falls over the last few months. MRI without signs of new infarct. PT/OT did work with her and deemed her safe to return home. Unclear how many are true falls vs unsteadiness. May be merely progression of parkinsonism with some aspect of deconditioning. Would recommend minimizing polypharmacy and other sedating agents. Would also recommend outpatient PT for balance/strengthening. Would defer to PCP on medication changes. (2) Chest pain: Progressive angina symptoms with TSANG. No symptoms at rest. Stress ECHO without signs of ischemia. Continue to monitor. Patient is on Plavix outpatient. Does have MSK chest pain from where she struck the ground. There is no rib fracture on imaging. (3) Hyponatremia: Patient with chronic hyponatremia. Back at baseline. Likely acute on chronic hyponatremia complicated by Bactrim treatment and SNRI usage. Likely SIADH. Continue sodium tablets and fluid restriction. (4) Cellulitis: Right knee cellulitis non-responsive to outpatient MRSA coverage. Improvement with CTX/Doxy therapy. WCx NGTD x 48H. Likely streptococcal organism. Transition to PO abx with doxy 100 mg BID and keflex 500 mg BID. 10 days total. Plan Chronic Stable Issues: Hypothyroidism Continue Synthroid Hypertension Continue lisinopril/verapamil IBS Symptomatic care Parkinsonism Supportive care Patient is not on pramipexole because it can cause salt wasting - did not tolerate Simemet Total Time Total Time Spent Total Time Spent (In Minutes): See attending attestation Discharge Plan Discharge Items Patient Disposition: Home - Self-Care Reason For Visit: HYPONATREMIA, FALLS, WEAKNESS Discharge Diagnosis: cellulitis Activity: Per Instructions section Non-emergency contact: Primary Care Provider Call non-emergency contact if: your temperature is above 101, your wound has increased redness and your wound has increased drainage Follow-up/Referrals: Angelina Hobbs CRNP [Primary Care Provider] - 04/05/24 10:30 am Diet: Heart Healthy Fluids: 1200ml (5 cups) Addtl Attending Provider Instructions: You were seen here in the hospital for worsening pain/redness of your right knee wound. We started you on a different antibiotic and your symptoms improved. We will continue with 10 days total of antibiotics. You'll take doxycycline 100 mg every 12 hours. You will also take cefalexin (Keflex) 500 mg every 12 hours. Take the entire course of these antibiotics. We did also evaluate your weakness/frequent falls. MRI brain without any signs of new stroke. Stress ECHO without signs of ischemic/decreased flood supply to the heart. We had PT/OT come to see you. They worked with you and recommended return home. You might want to consider outpatient PT for balance/strengthening. Discuss this with your primary care provider. It will be important to follow up with your primary care provider within the next 1-2 weeks. Pending Studies at Discharge: No Stand-Alone Forms: My [facility], Smoking Cessation Medications and DC Order Prescriptions: New diclofenac sodium [Voltaren Arthritis Pain] 1 % Gel 2 g EXT QID Qty: 30 0RF lidocaine 5 % Adhesive Patch,Medicated 1 patch transdermal QAM Qty: 30 0RF cephalexin 500 mg capsule 500 mg PO BID 8 Days Qty: 16 0RF polyethylene glycol 3350 [Miralax] 17 gram Powder In Packet 17 g PO DAILY Qty: 100 0RF doxycycline hyclate 100 mg capsule 100 mg PO BID 8 Days Qty: 16 0RF Continued amitriptyline 25 mg tablet 25 mg PO HS Qty: 90 3RF buspirone 15 mg tablet 15 mg PO TID Qty: 90 8RF clopidogrel 75 mg tablet 75 mg PO DAILY Qty: 90 3RF diclofenac sodium [Arthritis Pain (diclofenac)] 1 % gel 2 g topical QID PRN (Reason: Pain) Qty: 100 11RF Rx Instructions: apply to low back pain fluticasone propionate 50 mcg/actuation spray,suspension 1 spray intranasal QAM PRN (Reason: Allergy Symptoms) Qty: 16 3RF levothyroxine 75 mcg capsule 75 mcg PO DAILY Qty: 90 3RF lisinopril 10 mg tablet 10 mg PO QAM Qty: 90 3RF meclizine 25 mg tablet 25 mg PO TID PRN (Reason: motion sickness) Qty: 30 3RF potassium chloride [Klor-Con 10] 10 mEq tablet extended release 10 meq PO QAM Qty: 30 11RF tamsulosin 0.4 mg capsule 0.4 mg PO HS Qty: 90 3RF Rx Instructions: TAKE 1 CAPSULE BY MOUTH DAILY valacyclovir 500 mg tablet 500 mg PO HS Qty: 90 4RF venlafaxine 150 mg capsule,extended release 24hr 150 mg PO QAM Qty: 90 3RF venlafaxine 75 mg capsule,extended release 24hr 75 mg PO HS Qty: 90 3RF sodium chloride 1,000 mg tablet,soluble 1,000 mg PO BID Qty: 60 5RF verapamil 240 mg capsule,ext rel. pellets 24 hr 240 mg PO HS 30 Days Qty: 30 5RF clonazepam 0.5 mg tablet 0.5 mg PO TID Qty: 90 0RF Rx Instructions: temp increase tobramycin 0.3 % drops 1 drp ophthalmic (eye) Q4H 5 Days Qty: 5 0RF Rx Instructions: PLS DELIVER pantoprazole 40 mg tablet,delayed release (DR/EC) 40 mg PO BID Qty: 180 3RF cyanocobalamin (vitamin B-12) 1,000 mcg Lozenge 1,000 mcg SUBLINGUAL QAM latanoprost 0.005 % drops 1 drp ophthalmic (eye) HS cyclosporine [Restasis] 0.05 % Dropperette 1 drp OPB Q12H Systane (propylene glycol) 0.4-0.3 % Drops 1 drp OPB QID qlipfxfryb-doymgxtngofiw-fevp 50-325-40 mg tablet 1 - 2 tab PO .Q4-5H PRN (Reason: pain) Rx Instructions: every 4- 5 hours as needed for severe headache. No more than 2-3 days per week, max 6 tabs in 24 hours ketoconazole 2 % cream 1 applic topical BID PRN (Reason: FLARE UPS) Discontinued sulfamethoxazole-trimethoprim 800-160 mg tablet 1 tab PO BID 7 Days Qty: 14 0RF Discharge Orders: Discharge Order (Routine); Ordered 03/27/24 Ordered By: Yamileth Fox Admission Data Admit Date/Time: 03/25/24 17:21 Attending Provider: Dot Hobbs Admit Provider: Jacky Cunningham Primary Care Provider: Angelina Hobbs Other Providers: Jacky Cunningham Other Interventions: Discharge Summary Assessment (RN) Last Done: 03/27/24 11:33 Supervising Physician Co-Signing Physician Notes I personally examined the patient and verified gonzalez points of history and exam, discussed case, and agree with decision making and plan documented by Dr. Fox. Patient referred ports feeling much better, denies any symptoms that brought her initially into the hospital. Sodium levels improved to 132. We discussed chronic hyponatremia and importance of fluid restriction and approach to salt. Recommended she monitor this closely, she does get symptomatic and feels like she is going to fall when her levels are low. She will follow-up w ith her PCP. Reviewed that her stress testing was encouraging. Patient did well with physical therapy and was recommended to return home, she states she feels safe on her feet. We reviewed wound care for her healing right knee cellulitis. Encouraged her to continue her antibiotics as recommended to complete course. Patient finding benefit with lidocaine patches for pain. Patient appears comfortable, lungs clear b/l to auscultation, regular rate and rhythm, no acute distress. She is recommended to follow-up with PCP. Resident Activity Tracking Resident Involvement: Resident Care Provided Care Provided: Adult Hospital Medicine
== END 2024-03-27 14:44 | disposition home or self-care (01) | DRG 603 ==
LOC: ED 11:47 → SUATTDRO 17:21 → 2N 17:21 → INTOOBSV 17:21 → 2N 17:58

== ENCOUNTER 2024-08-01 13:42 | Inpatient (IN) ==
--- NOTE | 2024-08-01 14:12 | Emergency Department Note ---
Impression & Plan Stroke-like symptoms, Left sided numbness ED Provider Note NAME: JUAN LUIS VELASQUEZ AGE: 68 SEX: F : 1955 ARRIVES VIA: Ambulance INFORMANT: Patient, EMS ED PROVIDER(S): Everton Malagon DO CHIEF COMPLAINT: Strokelike symptoms HPI: The patient is a 68-year-old female who presented to the emergency department for an evaluation of strokelike symptoms. The patient states that she was having a bowel movement. She was straining and then she felt an acute numbness over the left side of her body. She also noticed facial numbness but it was more bilateral. She was hyperventilating according to the prehospital personnel. She states that when she calmed down she noticed that some of the facial numbness started to improve but she was left with left-sided numbness. She normally has left-sided weakness and pain because of previous DVT history. The patient denies having any fever. She has been under a lot of stress recently because she has been put into a jail. ROS: See above HPI for pertinent positives & negatives. A total of 10 systems reviewed and were otherwise negative. PAST MEDICAL HISTORY: See Below PAST SURGICAL HISTORY: See Below FAMILY HISTORY: See Below SOCIAL HISTORY: See Below HOME MEDICATIONS: See Below ALLERGIES: See Below VITALS: See Below PHYSICAL EXAMINATION: GENERAL: The patient is awake and alert. She is somewhat anxious appearing. EYES: The conjunctivae are clear. The pupils are round and reactive. EARS, NOSE, MOUTH AND THROAT: The nose is without any evidence of any deformity. NECK: The neck is nontender and supple. RESPIRATORY: Normal respiratory effort is noted there is no evidence of wheezing rhonchi or rales CARDIOVASCULAR: Regular rate and rhythm noted there no murmurs rubs or gallops normal S1 normal S2. GASTROINTESTINAL: The abdomen is soft. Abdomen is nontender. MUSCULOSKELETAL/EXTREMITIES: There is no evidence of gross deformity full range of motion is noted in the hips and shoulders. SKIN: There is no obvious evidence of any rash. There are no petechiae, pallor or cyanosis noted. NEUROLOGIC: Patient is awake alert and oriented x3. There is no drift in the upper extremities. The patient is tremulous. Speech was clear. There is no facial droop. The patient is able to hold each leg off the bed but she appears to have more strength in the left leg. She states this is chronic. There was subjective numbness to sharp versus dull over the left upper extremity and left lower extremity compared to the right. MEDICAL DECISION MAKING: The patient is a 68-year-old female who presented to the emergency department for an evaluation of strokelike symptoms. The patient was made a stroke alert after I evaluated the patient. She complained of left-sided numbness and other strokelike symptoms. I did discuss the patient's condition with the on-call telestroke neurology group. At this time the patient does not appear to meet criteria for TNK. Her symptoms are very mild and she appears to be at her baseline. She still has some subjective numbness. Given the risk and benefits of the medication I do not feel she would be a good candidate. I discussed the patient's condition with the on-call [facility] hospitalist. They have agreed to evaluate the patient in the emergency department. The patient was treated with aspirin load in the emergency department. Triage Nursing notes reviewed. Prior medical records reviewed Vital Signs: reviewed and remarkable for no significant abnormalities Differential diagnosis: Infection, dehydration, metabolic abnormality, hypo/hyperglycemia, electrolyte disturbance, anemia, hypoxia, cardiac sources, intracerebral event, toxicologic, neurologic, as well as other pathologies. ER treatment provided: See below Diagnostics interpreted by me: ECG: EKG was obtained in the emergency department. My interpretation is sinus bradycardia at 57 bpm. There was no ectopy. Nonspecific ST segment abnormalities were noted. This was compared to a tracing from March 25, 2024. No changes were noted. Cardiac Monitoring: An order was placed for continuous cardiac monitoring. The monitor shows a rate of 63 bpm with sinus rhythm. Laboratory studies: As stated above and show below. Imaging studies: See below. Radiographic imaging was reviewed by myself Consultation(s): I discussed this case with Dr Olivier who was on for stroke neurology with [facility] ED COURSE: Procedures: none Critical Care: I have personally spent greater than 35 minutes of critical care time in the direct management of this patient. This includes bedside care, interpretation of diagnostic studies, and testing, discussion with consultants, patient, and family members, and other required patient management activities. This 35 minutes is in excess of all separately billable procedures. 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 no active shingles currently Visual disturbance (Acute) Osteoarthritis of left knee Stroke migraine stroke (unsure of date -- within the last 7 years (since 2014) -> deficits include mild/minor dementia, finding right words, memory loss, right arm and leg weakness. follows with [facility]. Complicated migraine Numbness (Acute) Statin intolerance Hyponatremia (Acute) Weakness (Acute) Falls (Acute) Tear of medial meniscus of right knee Osteoarthritis of right knee Cerebrovascular disease Pre-diabetes Hyperlipidemia (Chronic) Patient has hx of intolerance to statin, has tried statins several times even with Co Q 10, and no longer dillan zetia either Headache, hemiplegic migraine (Chronic) Mitral valve disorder (Acute 09/20/11) Neuropathic pain Cystocele with rectocele 2010 Ataxia Complicated migraine with status migrainosus Constipation Gait disorder Parkinsonism (Acute) Restless legs syndrome (Chronic 09/20/11) Irritable bowel syndrome (Chronic 09/20/11) Depression with anxiety (Chronic) Hypothyroidism (Chronic) Memory impairment (Acute) mild - alert and oriented x3 Palpitations "irreegular heart beat" GERD (gastroesophageal reflux disease) Hypertension Hx of venous thrombosis and embolism (09/20/11) unsure of exact date. related to HRT. placed on anticoagulant since. Peripheral edema (Chronic) Osteoarthritis of hands, bilateral (Chronic) Esophageal dysmotility (Chronic) Medical History Anemia Glaucoma Vertigo Nausea and vomiting after administration of anesthetic agent On anticoagulant therapy Stroke October 22, 2021 -> treated at [facility]. right side weakness. December 21, 2021 Transient ischemic attack (TIA) August 2021. Parkinson disease History of COVID-19 Aug 17, 2020. no current issues History of anesthesia reaction unsure of the medication drug; reports getting a locked jaw after a surgery (~1979's) (unsure if it was vein stripping surgery or hysterectomy) Migraine Old myocardial infarct (09/20/11) no stents -- no current cardiology, follows with pcp Cervical radiculopathy Arthralgia of multiple sites Anemia Acid reflux Surgical History Hx of cataract extraction RT. History of cardiac cath Lucie Salazar. no stents History of esophagogastroduodenoscopy (EGD) History of laparoscopy History of colonoscopy H/O varicose vein ligation and stripping S/P total abdominal hysterectomy with BSO H/O rectocele repair cystocele and rectocele H/O ovarian cystectomy History of appendectomy Family History Mother , age 81 of a stroke Myocardial infarction Stroke Heart disease Father , age 89 of a stroke Stroke Other No family history of adverse response to anesthesia Denies family history of Ovarian cancer Prostate cancer Breast cancer Colorectal cancer Social History Smoking Status: Former smoker Second Hand Exposure: No; Do You Dip or Chew Tobacco: No; Hx Alcohol Use: No Hx Substance Use: No Preferred Language: Czech Communication Ability: Effective Visual Impairment: Limited Hearing Ability: Use of Hearing Aid Target Man Required: No Beliefs That Will Affect Care: None marital status: / Current Living Situation: Alone current occupational status: retired 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 How many Children do You have: 2 Feels Safe at Home: Yes Childhood Exposure to Second-Hand Smoke: No Diet: regular caffeine: Yes during the past year weight has: remained stable Dental Care, Regularly: No Physical Activity Frequency: Daily Seatbelt Use: always Sunscreen Use: Yes (sometimes) Assistive Devices: Cane and Walker Allergies Allergies Allergy/AdvReac Type Severity Reaction Status Date / Time methylprednisolone AdvReac Severe Psychosis Verified 07/23/24 13:37 ciprofloxacin [From Cipro] AdvReac Intermediate nausea Verified 07/23/24 13:37 erythromycin base AdvReac Intermediate VOMITTING Verified 07/23/24 13:37 Macrolide Antibiotics AdvReac Intermediate STOMACH Verified 07/23/24 13:37 UPSET Home Meds Home Medications Medication Instructions Recorded Confirmed cyanocobalamin (vitamin B-12) 1,000 mcg sublingual QAM 05/03/20 07/23/24 1,000 mcg sublingual lozenge latanoprost 0.005 % eye drops 1 drp ophthalmic (eye) HS 10/22/21 07/23/24 [id number] 1 - 2 tab PO .Q4-5H PRN pain 06/15/23 07/23/24 50 mg-325 mg-40 mg tablet cyclosporine 0.05 % eye drops in a 1 drp OPB Q12H 06/15/23 07/23/24 dropperette (Restasis) ketoconazole 2 % topical cream 1 applic topical BID PRN FLARE UPS 06/15/23 07/23/24 peg 400-propylene glycol 0.4 %-0.3 1 drp OPB QID 06/15/23 07/23/24 % eye drops (Systane (propylene glycol)) Previous Rx's Medication Instructions Recorded fluticasone propionate 50 1 spray intranasal QAM PRN Allergy 08/23/23 mcg/actuation nasal Symptoms #16 grams spray,suspension levothyroxine 75 mcg capsule 75 mcg PO DAILY #90 caps 08/23/23 meclizine 25 mg tablet 25 mg PO TID PRN motion sickness 08/23/23 #30 tabs valacyclovir 500 mg tablet 500 mg PO HS #90 tabs 08/23/23 pantoprazole 40 mg tablet,delayed 40 mg PO BID #180 tabs 11/15/23 release tobramycin 0.3 % eye drops 1 drp ophthalmic (eye) Q4H 5 days 11/15/23 #5 mL diclofenac sodium 1 % topical gel 2 g EXT QID #30 grams 03/27/24 (Voltaren Arthritis Pain) lidocaine 5 % topical patch 1 patch transdermal QAM #30 ea 03/27/24 polyethylene glycol 3350 17 gram 17 g PO DAILY #100 ea 03/27/24 oral powder packet (Miralax) hospital bed #1 ea 03/30/24 potassium chloride 10 mEq 10 meq PO QAM #30 tabs 04/26/24 tablet,extended release (Klor-Con) buspirone 10 mg tablet 20 mg (2 x 10 mg) PO TID #180 tabs 05/14/24 sodium chloride 1,000 mg soluble 1,000 mg PO BID #60 tabs 05/30/24 tablet amitriptyline 25 mg tablet 25 mg PO HS #90 tabs 06/28/24 clopidogrel 75 mg tablet 75 mg PO DAILY #90 tabs 08/15/24 lisinopril 10 mg tablet 10 mg PO QAM #90 tabs 06/28/24 tamsulosin 0.4 mg capsule 0.4 mg PO HS #90 caps 06/28/24 venlafaxine 150 mg 150 mg PO QAM #90 caps 06/28/24 capsule,extended release 24 hr venlafaxine 75 mg capsule,extended 75 mg PO HS #90 caps 06/28/24 release 24 hr verapamil 240 mg 24 hr 240 mg PO HS 30 days #30 caps 06/28/24 capsule,extended release clonazepam 0.5 mg tablet 0.5 mg PO TID #90 tabs 07/24/24 Results & Data (ED) Vital Signs Vital Signs - 24 hr 08/01/24 13:33 08/01/24 13:33 08/01/24 14:01 Temperature 36.8 C Temperature Source Oral Pulse Rate 55 L Pulse Rate [Apical] 55 L 55 L Pulse Rate from SpO2 Sensor Pulse Rhythm Regular Pulse Rhythm [Apical] Regular Regular Pulse Strength Normal Pulse Strength [Apical] Normal Normal Respiratory Rate 20 20 20 Respiratory Effort / Characteristics Non-Labored Non-Labored Non-Labored Respiratory Depth Normal Normal Normal Respiratory Pattern Regular Regular Regular Blood Pressure 160/82 H Blood Pressure [Right Arm] 160/82 H 160/82 H Blood Pressure Mean 108 Blood Pressure Mean [Right Arm] 108 108 Blood Pressure Position [Right Arm] Lying Lying Pulse Oximetry 100 100 100 Oxygen Delivery Method Room Air Room Air Room Air Sepsis Recent Fever Within 48 Hours No Sepsis New/Unexplained Change in Mental Status No Sepsis Action Taken by Nursing No Action Required 08/01/24 14:25 08/01/24 14:27 08/01/24 14:30 Temperature Temperature Source Pulse Rate 59 L 57 L Pulse Rate [Apical] Pulse Rate from SpO2 Sensor 59 L 56 L Pulse Rhythm Pulse Rhythm [Apical] Pulse Strength Pulse Strength [Apical] Respiratory Rate 22 21 Respiratory Effort / Characteristics Respiratory Depth Respiratory Pattern Blood Pressure 160/100 H 149/80 H Blood Pressure [Right Arm] Blood Pressure Mean 119 103 Blood Pressure Mean [Right Arm] Blood Pressure Position [Right Arm] Pulse Oximetry 100 100 Oxygen Delivery Method Sepsis Recent Fever Within 48 Hours Sepsis New/Unexplained Change in Mental Status Sepsis Action Taken by Custodial Medications Current Medication List: was personally reviewed by me Laboratory Data Attestation: I reviewed the patient's lab results. 08/01/24 14:10 08/01/24 14:10 Lab Results 08/01/24 Range/Units 14:10 WBC 4.61 L (4.8-10.8) K/ul RBC 4.25 (4.20-5.40) M/uL Hgb 13.3 (12.0-16.0) g/dl Hct 38.2 (37.0-47.0) % MCV 89.9 (80.0-100.0) fL MCH 31.3 (25.0-34.0) pg MCHC 34.8 (32.0-36.0) g/dL RDW Std Deviation 40.7 (36.4-46.3) fL RDW Coeff of Ana 12.4 (11.5-14.5) % Plt Count 255 (130-400) K/uL MPV 8.7 L (9.4-12.4) fL Immature Gran % (Auto) 0.2 % Neut % (Auto) 56.6 % Lymph % (Auto) 31.7 % Cassia % (Auto) 10.2 % Eos % (Auto) 0.4 % Baso % (Auto) 0.9 % Neut # (Auto) 2.61 (1.40-6.50) K/uL Lymph # (Auto) 1.46 (1.20-3.40) K/uL Cassia # (Auto) 0.47 (0.11-0.59) K/uL Eos # (Auto) 0.02 (0.00-0.50) K/uL Baso # (Auto) 0.04 (0.00-0.20) K/uL Immature Gran # (Auto) 0.01 (0.01-0.20) K/uL PT 10.6 (9.0-12.0) Seconds INR 1.0 (0.9-1.1) APTT 26 (21-31) Seconds PTT Ratio 1.0 Sodium 132 L (136-145) mmol/L Potassium 3.7 (3.5-5.1) mmol/L Chloride 99 (98-107) mmol/L Carbon Dioxide 22 (21-32) mmol/L Anion Gap 11 (3-11) BUN 8 (6-23) mg/dl Creatinine 0.95 (0.6-1.2) mg/dl Est Cr Clr Drug Dosing 53.5 ml/min Est GFR ( Amer) 71.8 ml/min Est GFR (Non-Af Amer) 62.0 ml/min BUN/Creatinine Ratio 8.4 L (10-20) Glucose 100 H (70-99(Fasting)) mg/dl Calcium 9.7 (8.6-10.3) mg/dl Magnesium 1.9 (1.7-2.4) mg/dl Total Bilirubin 0.6 (0.2-1.0) mg/dl AST 16 (13-39) U/L ALT 19 (7-52) U/L Alkaline Phosphatase 95 (34-104) U/L Troponin I High Sens < 2.3 (0-14) pg/ml Total Protein 7.2 (6.0-8.3) gm/dl Albumin 4.8 (3.4-5.0) gm/dl Globulin 2.4 L (2.5-4.0) gm/dl Albumin/Globulin Ratio 2.0 (0.9-2) Administered Medications Discontinued Medications Aspirin (Aspirin Chew 324 Mg) 324 mg PO NOW STA Stop: 08/01/24 15:06 Last Admin: 08/01/24 15:29 Dose: 324 mg Documented By: HS Ioversol (Optiray 320 125ml) 112 ml IV ONCE ONE Stop: 08/01/24 14:16 Last Admin: 08/01/24 14:15 Dose: 112 ml Documented By: BLACK Imaging Data Attestation: I personally reviewed and interpreted this imaging study as follows: My Impression: CT the brain was obtained in the emergency department. My interpretation is no intracranial hemorrhage or mass effect, final report below. Radiologist's Impression: Head CT 08/01/24 14:01 CT OF THE HEAD WITHOUT CONTRAST CLINICAL HISTORY: neuro deficit, acute stroke suspected COMPARISON STUDY: MRI brain November 19, 2023 and March 25, 2024. Head CT 03/25/2024. TECHNIQUE: Helical axial images of the head were obtained without IV contrast. Automated exposure control was utilized for the study. A dose lowering technique was utilized adhering to the principles of ALARA. FINDINGS: No acute intracranial hemorrhage, midline shift or mass effect is present. White matter hypodensities are unchanged and favor small vessel disease. The ventricular system is unremarkable. The basal cisterns are patent. No extra-axial collections are present. There are no findings to suggest acute dural sinus thrombosis or acute territorial infarct. No significant calvarial abnormalities are present. Visualized portions of the sinuses and mastoid air cells are clear. IMPRESSION: No acute intracranial findings. ACT 112: Negative or not required by law. Electronically signed by: Nathaniel Hamilton M.D. 08/01/2024 2:30 PM Head CTA 08/01/24 14:01 HEAD CTA HISTORY: neuro deficit, acute stroke suspected TECHNIQUE: Multiaxial CT images of the head were performed both before and after the intravenous administration of contrast to evaluate the major cerebral vessels. 3D/MIP images were also obtained. Sagittal and coronal reformats were reviewed. A dose lowering technique was utilized adhering to the principles of ALARA. COMPARISON: Head CT 8 11/19/2023. FINDINGS: There is no mass, hematoma, midline shift, or acute infarct. Visualized intracranial internal carotid arteries, distal vertebral arteries, and basilar artery are widely patent. There is no significant stenosis, occlusion, or aneurysm seen within the bilateral ACAs or MCAs. No change in the moderate multifocal stenoses within the bilateral posterior cerebral arteries. IMPRESSION: 1. No significant stenosis, occlusion, or aneurysm within the bilateral ACAs or MCAs. 2. No change in the moderate multifocal stenoses within the bilateral posterior cerebral arteries. ACT 112: Negative or not required by law. Electronically signed by: Jose Caban M.D. 08/01/2024 2:52 PM Neck CTA 08/01/24 14:01 CT angio neck with con CLINICAL HISTORY: 68 years-old Female with neuro deficit, acute stroke suspected. Acute stroke like symptoms with right arm numbness COMPARISON STUDY: Head CT of same day, CTA neck 11/19/2023 TECHNIQUE: Following the IV administration of 112 mL of Optiray, CT angiogram of the neck was performed from the aortic arch to the skull base. Images are reviewed in the axial, sagittal, and coronal planes. 3-D MIPS images are created and assessed. IV contrast was administered without complication. All measurements were calculated based on NASCET criteria. A dose lowering technique was utilized adhering to the principles of ALARA. CT DOSE: 1112.04 mGy.cm FINDINGS: There is no cervical lymphadenopathy. No acute cervical spine fractures are present. The bilateral common carotid, cervical internal carotid and vertebral arteries are patent. There is mild stenosis at the origin of the left subclavian artery. The right vertebral is dominant and patent. There is no dissection or aneurysm within the neck. There is mild plaque within the proximal bilateral internal carotid arteries without significant stenosis. IMPRESSION:Unremarkable CTA of the neck. ACT 112: Negative or not required by law. The above report was generated using voice recognition software. It may contain grammatical, syntax or spelling errors. Electronically signed by: Fredy Knight M.D. 08/01/2024 2:37 PM Discharge Plan Visit Data Chief Complaint: TIA Symptoms ED Provider: Everton Malagon Discharge Problem: Stroke-like symptoms, Left sided numbness Patient Disposition: Being Evaluated by Hospitalist Forms Stand Alone Forms: [facility] [place] [employer] Prescriptions Prescriptions: No Action fluticasone propionate 50 mcg/actuation spray,suspension 1 spray intranasal QAM PRN (Reason: Allergy Symptoms) Qty: 16 3RF levothyroxine 75 mcg capsule 75 mcg PO DAILY Qty: 90 3RF meclizine 25 mg tablet 25 mg PO TID PRN (Reason: motion sickness) Qty: 30 3RF valacyclovir 500 mg tablet 500 mg PO HS Qty: 90 4RF potassium chloride [Klor-Con 10] 10 mEq tablet extended release 10 meq PO QAM Qty: 30 11RF sodium chloride 1,000 mg tablet,soluble 1,000 mg PO BID Qty: 60 11RF venlafaxine 150 mg capsule,extended release 24hr 150 mg PO QAM Qty: 90 3RF lisinopril 10 mg tablet 10 mg PO QAM Qty: 90 3RF clopidogrel 75 mg tablet 75 mg PO DAILY Qty: 90 3RF tamsulosin 0.4 mg capsule 0.4 mg PO HS Qty: 90 3RF Rx Instructions: TAKE 1 CAPSULE BY MOUTH DAILY venlafaxine 75 mg capsule,extended release 24hr 75 mg PO HS Qty: 90 3RF amitriptyline 25 mg tablet 25 mg PO HS Qty: 90 3RF verapamil 240 mg capsule,ext rel. pellets 24 hr 240 mg PO HS 30 Days Qty: 30 5RF clonazepam 0.5 mg tablet 0.5 mg PO TID Qty: 90 0RF Rx Instructions: temp increase tobramycin 0.3 % drops 1 drp ophthalmic (eye) Q4H 5 Days Qty: 5 0RF Rx Instructions: PLS DELIVER pantoprazole 40 mg tablet,delayed release (DR/EC) 40 mg PO BID Qty: 180 3RF buspirone 10 mg tablet 20 mg PO TID Qty: 180 3RF (DME) hospital bed See Rx Instructions .Route .MEDSUPPLY Qty: 1 0RF Rx Instructions: As directed cyanocobalamin (vitamin B-12) 1,000 mcg Lozenge 1,000 mcg SUBLINGUAL QAM latanoprost 0.005 % drops 1 drp ophthalmic (eye) HS cyclosporine [Restasis] 0.05 % Dropperette 1 drp OPB Q12H Systane (propylene glycol) 0.4-0.3 % Drops 1 drp OPB QID [id number]-[id number]-[id number] 50-325-40 mg tablet 1 - 2 tab PO .Q4-5H PRN (Reason: pain) Rx Instructions: every 4- 5 hours as needed for severe headache. No more than 2-3 days per week, max 6 tabs in 24 hours ketoconazole 2 % cream 1 applic topical BID PRN (Reason: FLARE UPS) diclofenac sodium [Voltaren Arthritis Pain] 1 % Gel 2 g EXT QID Qty: 30 0RF lidocaine 5 % Adhesive Patch,Medicated 1 patch transdermal QAM Qty: 30 0RF polyethylene glycol 3350 [Miralax] 17 gram Powder In Packet 17 g PO DAILY Qty: 100 0RF Referrals Referrals: Angelina Hobbs CRNP [Primary Care Provider] -
[2024-08-01] MEDS: OPTIRAY 320 125ml IV ONE (14:15)
[2024-08-01 14:21] LABS: Basophils # (auto) 0.04 K/uL (0.00-0.20); Basophils % (auto) 0.9 %; Eosinophils # (auto) 0.02 K/uL (0.00-0.50); Eosinophils % (auto) 0.4 %; Hematocrit (blood only) 38.2 % (37.0-47.0); Hemoglobin 13.3 g/dl (12.0-16.0); Immature Granulocytes # (auto) 0.01 K/uL (0.01-0.20); Immature Granulocytes % (auto) 0.2 %; Lymphocytes # (auto) 1.46 K/uL (1.20-3.40); Lymphocytes % (auto) 31.7 %; Mean Corpuscular Hemoglobin 31.3 pg (25.0-34.0); Mean Corpuscular Hgb Conc 34.8 g/dL (32.0-36.0); Mean Corpuscular Volume 89.9 fL (80.0-100.0); Mean Platelet Volume 8.7 fL (9.4-12.4); Monocytes # (auto) 0.47 K/uL (0.11-0.59); Monocytes % (auto) 10.2 %; Neutrophils # (auto) 2.61 K/uL (1.40-6.50); Neutrophils % (auto) 56.6 %; Platelet Count 255 K/uL (130-400); RDW Coefficient of Variation 12.4 % (11.5-14.5); RDW Standard Deviation 40.7 fL (36.4-46.3); Red Blood Count 4.25 M/uL (4.20-5.40); White Blood Count 4.61 K/ul (4.8-10.8)
--- NOTE | 2024-08-01 14:31 | CT Scan Report ---
CT OF THE HEAD WITHOUT CONTRAST CLINICAL HISTORY: neuro deficit, acute stroke suspected COMPARISON STUDY: MRI brain November 19, 2023 and March 25, 2024. Head CT 03/25/2024. TECHNIQUE: Helical axial images of the head were obtained without IV contrast. Automated exposure con trol was utilized for the study. A dose lowering technique was utilized adhering to the principles o f ALARA. FINDINGS: No acute intracranial hemorrhage, midline shift or mass effect is present. White matter hyp odensities are unchanged and favor small vessel disease. The ventricular system is unremarkable. The basal cisterns are patent. No extra-axial collections are present. There are no findings to suggest a cute dural sinus thrombosis or acute territorial infarct. No significant calvarial abnormalities are present. Visualized portions of the sinuses and mastoid air cells are clear. IMPRESSION: No acute intracranial findings. ACT 112: Negative or not required by law. Electronically signed by: Nathaniel Hamilton M.D. 08/01/2024 2:30 PM
[2024-08-01 14:33] LABS: Partial Thromboplastin Time 26 Seconds (21-31); Prothrombin Time 10.6 Seconds (9.0-12.0)
--- NOTE | 2024-08-01 14:39 | CT Scan Report ---
CT angio neck with con CLINICAL HISTORY: 68 years-old Female with neuro deficit, acute stroke suspected. Acute stroke lik e symptoms with right arm numbness COMPARISON STUDY: Head CT of same day, CTA neck 11/19/2023 TECHNIQUE: Following the IV administration of 112 mL of Optiray, CT angiogram of the neck was perform ed from the aortic arch to the skull base. Images are reviewed in the axial, sagittal, and coronal pl anes. 3-D MIPS images are created and assessed. IV contrast was administered without complication. Al l measurements were calculated based on NASCET criteria. A dose lowering technique was utilized adhe ring to the principles of ALARA. CT DOSE: 1112.04 mGy.cm FINDINGS: There is no cervical lymphadenopathy. No acute cervical spine fractures are present. The bilateral co mmon carotid, cervical internal carotid and vertebral arteries are patent. There is mild stenosis at the origin of the left subclavian artery. The right vertebral is dominant and patent. There is no dis section or aneurysm within the neck. There is mild plaque within the proximal bilateral internal amador tid arteries without significant stenosis. IMPRESSION:Unremarkable CTA of the neck. ACT 112: Negative or not required by law. The above report was generated using voice recognition software. It may contain grammatical, syntax o r spelling errors. Electronically signed by: Fredy Knight M.D. 08/01/2024 2:37 PM
[2024-08-01 14:43] LABS: Alanine Aminotransferase 19 U/L (7-52); Albumin Level 4.8 gm/dl (3.4-5.0); Alkaline Phosphatase 95 U/L (34-104); Anion Gap 11 (3-11); Aspartate Aminotransferase 16 U/L (13-39); BUN Creatinine Ratio 8.4 (10-20); Bilirubin,Total 0.6 mg/dl (0.2-1.0); Blood Urea Nitrogen 8 mg/dl (6-23); Calcium 9.7 mg/dl (8.6-10.3); Carbon Dioxide 22 mmol/L (21-32); Chloride 99 mmol/L (98-107); Creatinine Clr Calc Pharmacy 53.5 ml/min; Est GFR (African American) 71.8 ml/min; Globulin 2.4 gm/dl (2.5-4.0); Glucose 100 mg/dl (70-99(Fasting)); Magnesium 1.9 mg/dl (1.7-2.4); Potassium 3.7 mmol/L (3.5-5.1); Sodium 132 mmol/L (136-145); Total Protein 7.2 gm/dl (6.0-8.3)
[2024-08-01 14:49] LABS: Troponin I High Sensitivity < 2.3 pg/ml (0-14)
--- NOTE | 2024-08-01 14:54 | CT Scan Report ---
HEAD CTA HISTORY: neuro deficit, acute stroke suspected TECHNIQUE: Multiaxial CT images of the head were performed both before and after the intravenous admi nistration of contrast to evaluate the major cerebral vessels. 3D/MIP images were also obtained. Sag ittal and coronal reformats were reviewed. A dose lowering technique was utilized adhering to the cristela Ramirez. COMPARISON: Head CT 8 11/19/2023. FINDINGS: There is no mass, hematoma, midline shift, or acute infarct. Visualized intracranial psychology intern al carotid arteries, distal vertebral arteries, and basilar artery are widely patent. There is no sig nificant stenosis, occlusion, or aneurysm seen within the bilateral ACAs or MCAs. No change in the mo derate multifocal stenoses within the bilateral posterior cerebral arteries. IMPRESSION: 1. No significant stenosis, occlusion, or aneurysm within the bilateral ACAs or MCAs. 2. No change in the moderate multifocal stenoses within the bilateral posterior cerebral arteries. ACT 112: Negative or not required by law. Electronically signed by: Jose Caban M.D. 08/01/2024 2:52 PM
--- NOTE | 2024-08-01 15:18 | History & Physical Report ---
Date of Service August 01, 2024 Assessment & Plan (1) Stroke-like symptoms: Plan: Admit to the PCU on telemetry Currently stable, nontoxic-appearing, with improved but not resolved symptoms Presented to the ED via EMS on 08/01/2024 due to acute onset of left-sided paresthesias and subjective weakness in the left upper and lower extremities while straining to have a bowel movement this morning CT of the head/brain without contrast, CTA of the head/neck were read as negative for acute changes compared to previous Patient was evaluated by [facility] who did not recommend TNK administration but did recommend loading the patient with aspirin and continuing with dual antiplatelet therapy for now while ongoing CVA workup is obtained Per review of previous admissions and last neurology clinic note from 01/23/2024, patient has a history of strokelike symptoms and complicated migraine with status migrainosus on verapamil and venlafaxine > Patient explained that she did have a headache prior to admission which has nearly resolved, unsure at this time if presentation is a result of recurrent migraine versus new CVA at this time Patient was given 324 mg aspirin in the ED and confirm she had her a.m. dose of Plavix prior to ED arrival Patient is still experiencing subjective left-sided facial numbness, intermittent paresthesias at various spots of the left upper extremity which she reports changes since arrival, and left upper extremity/lower extremity weakness compared to right Patient does have a previous history of CVA Will plan to continue dual antiplatelet therapy at this time and allow permissive hypertension until MRI results are back Patient does not appear to be on a statin, will start 40 mg p.o. atorvastatin now then continue daily Follow MRI of the brain without contrast, if she has findings consistent with acute CVA will obtain TTE Follow a.m. fasting lipid panel and hemoglobin A1c Bilateral CHRISTIANA stockings for DVT prophylaxis for now Dysphagia screen, every 4 hours neurochecks Heart healthy diet with aspiration precautions and easy to chew texture AM CBC, BMP, mag, PT/INR, hemoglobin A1c, fasting lipid panel (2) Parkinsonism: Plan: Previously taken off pramipexole due to history of hyponatremia and reportedly did not tolerate Sinemet PT/OT consults, case management consult, fall/aspiration (3) Failure to thrive in adult: Plan: Patient was currently working with her PCP and outpatient showcase trimmer to try and find placement Will consult case maker and PT/OT to see if placement can be initiated at time of discharge (4) Bladder retention of urine: Plan: Patient was experiencing significant suprapubic discomfort at the time of exam and reported she has been having difficulty urinating over the past week Bedside bladder scan at the time of my exam shows approximately 900 cc of urinary retention Will place Becerra catheter at the time of admission as patient reports previous history of requiring Becerra catheter placement Will obtain UA at the time of Becerra catheter placement to monitor for signs of infection Should attempt voiding trial prior to discharge, consult urology with any complications or (5) Constipation: Plan: Patient has been experiencing approximately 4 days of constipation, this is an ongoing chronic issue Abdominal exam is benign with ongoing bowel sounds and passage of gas Will start scheduled MiraLAX and senna for now Monitor for consistent bowel movements moving forward (6) Depression with anxiety: Plan: Continue buspirone, amitriptyline, as needed clonazepam, and venlafaxine Plan The patient was discussed with Dr. Suero at the time of the admission History of Present Illness Chief Complaint: Strokelike symptoms Primary Care Provider: BRIEN Chahal Charley is a 68-year-old female with a past medical history significant for vascular parkinsonism, complicated/hemiplegic migraine, frequent falls, anxiety, IBS, previous CVA with right sided weakness on Plavix, hypothyroidism on Synthroid, hypertension on lisinopril/verapamil who presented to the [facility] ED via EMS from home due to acute onset of left-sided numbness/paresthesias and anxiety while attempting to have a bowel movement this morning. Patient was reportedly hyperventilating on EMS arrival. Was noted to be hypertensive on arrival with systolic blood pressure in the 160s and bradycardic with heart rate in the 50s but otherwise stable. Labs were significant for a sodium of 132 which appears near her chronic baseline. CT of the head/brain without contrast, CTA of the head, and CT of the neck were read as unchanged from previous. The patient was evaluated by [facility] who did not feel that she would be a TNK candidate but did recommend loading the patient with aspirin and admitting for ongoing TIA[facility] workup[facility] on [facility]/Plavix for now and allowing permissive hypertension until her MRI of the brain is obtained over the next 24 hours. Prior to admission the patient was given 324 mg aspirin. Patient was sitting in bed no significant distress but does appear anxious. Explains that she had woken up in her normal state of health which includes chronic right sided weakness due to previous CVA. States that she has been having issues with constipation and urinary retention over the past 1 to 2 weeks. She had been sitting on her home toilet trying to have a bowel movement and states that she had been straining hard for a few minutes when she had acute onset of feeling lightheaded then experiencing left-sided numbness on her left face, left upper extremity, and left lower extremity. When asked, she states that she did not have complete numbness on her entire left upper or left lower extremity but would experience the numbness/paresthesias in different parts of her extremities. States that the left side of her mouth and lips were significantly numb earlier. States that she feels as though her left upper extremity and left lower extremity are currently weaker than their baseline. Explains that her paresthesias on the left side of her body are significantly improved compared to arrival but not completely resolved at this time. Denies current headache, recent changes in vision, hearing, taste, smell, chest pain, shortness of breath, nausea/vomiting, dysuria/hematuria, diarrhea, and recent trauma. States that she is experiencing suprapubic discomfort at this time as she has not been able to urinate all day. Bedside bladder scan shows approximately 900 cc of urinary retention. She explains that she has been working with her PCP and outpatient showcase trimmer to be placed as she has been unable to safely care for self at home as she lives alone. She confirms that she is a DNR/DNI and that she would want her son to make medical decisions for her if she cannot make them herself. Confirms that she had all of her a.m. medications prior to ED arrival. Please refer to Dr. Suero's attestation for any changes to the treatment plan Allergies Allergy/AdvReac Type Severity Reaction Status Date / Time methylprednisolone AdvReac Severe Psychosis Verified 08/01/24 20:23 ciprofloxacin [From Cipro] AdvReac Intermediate nausea Verified 08/01/24 20:23 erythromycin base AdvReac Intermediate VOMITTING Verified 08/01/24 20:23 Macrolide Antibiotics AdvReac Intermediate STOMACH Verified 08/01/24 20:23 UPSET Home Medications Medication Instructions Recorded Confirmed Type cyanocobalamin (vitamin B-12) 1,000 mcg sublingual QAM 05/03/20 08/01/24 History 1,000 mcg sublingual lozenge latanoprost 0.005 % eye drops 1 drp ophthalmic (eye) HS 10/22/21 08/01/24 History ejltrqabls-jsweleonypwjj-sxbxixjq 1 - 2 tab PO .Q4-5H PRN pain 06/15/23 08/01/24 History 50 mg-325 mg-40 mg tablet cyclosporine 0.05 % eye drops in a 1 drp OPB Q12H 06/15/23 08/01/24 History dropperette (Restasis) peg 400-propylene glycol 0.4 %-0.3 1 drp OPB QID 06/15/23 08/01/24 History % eye drops (Systane (propylene glycol)) fluticasone propionate 50 1 spray intranasal QAM PRN Allergy 08/23/23 08/01/24 Rx mcg/actuation nasal Symptoms #16 grams spray,suspension levothyroxine 75 mcg capsule 75 mcg PO DAILY #90 caps 08/23/23 08/01/24 Rx valacyclovir 500 mg tablet 500 mg PO HS #90 tabs 08/23/23 08/01/24 Rx pantoprazole 40 mg tablet,delayed 40 mg PO BID #180 tabs 11/15/23 08/01/24 Rx release tobramycin 0.3 % eye drops 1 drp ophthalmic (eye) Q4H 5 days 11/15/23 08/01/24 Rx #5 mL lidocaine 5 % topical patch 1 patch transdermal QAM #30 ea 03/27/24 08/01/24 Rx hospital bed #1 ea 03/30/24 07/23/24 Rx potassium chloride 10 mEq 10 meq PO QAM #30 tabs 04/26/24 08/01/24 Rx tablet,extended release (Klor-Con) buspirone 10 mg tablet 20 mg (2 x 10 mg) PO TID #180 tabs 05/14/24 08/01/24 Rx sodium chloride 1,000 mg soluble 1,000 mg PO BID #60 tabs 05/30/24 08/01/24 Rx tablet amitriptyline 25 mg tablet 25 mg PO HS #90 tabs 06/28/24 08/01/24 Rx clopidogrel 75 mg tablet 75 mg PO DAILY #90 tabs 06/28/24 08/01/24 Rx lisinopril 10 mg tablet 10 mg PO QAM #90 tabs 06/28/24 08/01/24 Rx tamsulosin 0.4 mg capsule 0.4 mg PO HS #90 caps 06/28/24 08/01/24 Rx venlafaxine 150 mg 150 mg PO QAM #90 caps 06/28/24 08/01/24 Rx capsule,extended release 24 hr venlafaxine 75 mg capsule,extended 75 mg PO HS #90 caps 06/28/24 08/01/24 Rx release 24 hr verapamil 240 mg 24 hr 240 mg PO HS 30 days #30 caps 06/28/24 08/01/24 Rx capsule,extended release clonazepam 0.5 mg tablet 0.5 mg PO TID #90 tabs 07/24/24 08/01/24 Rx diclofenac sodium 1 % topical gel 2 g EXT QID PRN Pain 08/01/24 08/01/24 History (Voltaren Arthritis Pain) Past Med/Surg History Problem List (Updated 08/01/24 @ 16:02 by Blas Strong PA-C) Failure to thrive in adult Left sided numbness (Acute) Stroke-like symptoms (Acute) 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 no active shingles currently Visual disturbance (Acute) Osteoarthritis of left knee Stroke migraine stroke (unsure of date -- within the last 7 years (since 2014) -> deficits include mild/minor dementia, finding right words, memory loss, right arm and leg weakness. follows with [facility] Neu[facility]. Complicated migraine Numbness (Acute) Statin intolerance Hyponatremia (Acute) Weakness (Acute) Falls (Acute) Tear of medial meniscus of right knee Osteoarthritis of right knee Cerebrovascular disease Pre-diabetes Hyperlipidemia (Chronic) Patient has hx of intolerance to statin, has tried statins several times even with Co Q 10, and no longer dillan zetia either Headache, hemiplegic migraine (Chronic) Mitral valve disorder (Acute 09/20/11) Neuropathic pain Cystocele with rectocele 2010 Ataxia Complicated migraine with status migrainosus Constipation Gait disorder Parkinsonism (Acute) Restless legs syndrome (Chronic 09/20/11) Irritable bowel syndrome (Chronic 09/20/11) Depression with anxiety (Chronic) Hypothyroidism (Chronic) Memory impairment (Acute) mild - alert and oriented x3 Palpitations "irreegular heart beat" GERD (gastroesophageal reflux disease) Hypertension Hx of venous thrombosis and embolism (09/20/11) unsure of exact date. related to HRT. placed on anticoagulant since. Peripheral edema (Chronic) Osteoarthritis of hands, bilateral (Chronic) Esophageal dysmotility (Chronic) Medical History Anemia Glaucoma Vertigo Nausea and vomiting after administration of anesthetic agent On anticoagulant therapy Stroke October 22, 2021 -> treated at [facility]. right side weakness. December 21, 2021 Transient ischemic attack (TIA) August 2021. Parkinson disease History of COVID-19 Aug 17, 2020. no current issues History of anesthesia reaction unsure of the medication drug; reports getting a locked jaw after a surgery (~s) (unsure if it was vein stripping surgery or hysterectomy) Migraine Old myocardial infarct (09/20/11) no stents -- no current cardiology, follows with pcp Cervical radiculopathy Arthralgia of multiple sites Anemia Acid reflux Surgical History Hx of cataract extraction RT. History of cardiac cath [facility] Marie. no stents History of esophagogastroduodenoscopy (EGD) History of laparoscopy History of colonoscopy H/O varicose vein ligation and stripping S/P total abdominal hysterectomy with BSO H/O rectocele repair cystocele and rectocele H/O ovarian cystectomy History of appendectomy Family History Mother , age 81 of a stroke Myocardial infarction Stroke Heart disease Father , age 89 of a stroke Stroke Other No family history of adverse response to anesthesia Denies family history of Ovarian cancer Prostate cancer Breast cancer Colorectal cancer Social History Smoking Status: Never smoker Second Hand Exposure: No; Do You Dip or Chew Tobacco: No; Tobacco Cessation Education Requested by Patient: No Hx Alcohol Use: No Hx Substance Use: No Preferred Language: Estonian Communication Ability: Effective Visual Impairment: Limited Hearing Ability: Use of Hearing Aid Skin Care Consultant Required: No Beliefs That Will Affect Care: None marital status: / Current Living Situation: Alone current occupational status: retired 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 How many Children do You have: 2 Other Information That Helps Us Care for You: No Feels Safe at Home: Yes Safety Concerns: Feels Safe At This Time Childhood Exposure to Second-Hand Smoke: No Diet: regular caffeine: Yes during the past year weight has: remained stable Dental Care, Regularly: No Physical Activity Frequency: Daily Seatbelt Use: always Sunscreen Use: Yes (sometimes) Assistive Devices: Denture - Upper, Denture - Lower and Glasses Physical Exam Physical Exam: Physical Exam: General: Patient is anxious but in no significant distress, stated age, nontoxic-appearing HEENT: Normocephalic, atraumatic, no scleral icterus, pupils around round, symmetrical, and reactive to light, moist mucus membranes, trachea midline, no thyromegaly Chest/Pulm: No respiratory distress, symmetrical chest expansion, clear breath sounds throughout Cardiac: RRR, no murmurs noted Abdomen: Negative for ascites and bruising, normoactive bowel sounds, soft, mildly tender to palpation in the suprapubic area without rebound tenderness, otherwise nontender to palpation throughout Musculoskeletal: Symmetrical and without signs of acute trauma Extremities: Radial, dorsalis pedis, and posterior tibial pulses are intact and symmetrical, no edema noted in the BL LE's Skin: Warm, dry, no rashes , lesions, or scars noted Neuro: Alert and oriented to person, place, month, year, and president, no focal defects, CN II-XII tested with subjective decrease sensation on the left face compared to right otherwise cranial nerves are intact, negative pronator drift testing the bilateral upper extremities, patient with 4+ strength in the left upper extremity and 5 push strength in the right upper extremity, 5+ strength in the right lower extremity with 4+ strength in the left lower extremity, symmetrical sensation in the bilateral lower extremities no tremors noted Psych: Patient is anxious but polite and cooperative during the exam Results & Data Results & Data Vital Signs (Past 12 Hours) Vital Signs Temp Pulse Pulse Resp BP BP Pulse Ox 08/01/24 14:30 57 L 21 149/80 H 100 08/01/24 14:27 59 L 22 100 08/01/24 14:25 160/100 H 08/01/24 14:01 55 L 20 160/82 H 100 08/01/24 13:33 55 L 20 160/82 H 100 08/01/24 13:33 36.8 C 55 L 20 160/82 H 100 O2 Del Method 08/01/24 14:30 08/01/24 14:27 08/01/24 14:25 08/01/24 14:01 Room Air 08/01/24 13:33 Room Air 08/01/24 13:33 Room Air Laboratory Results Abnormal lab results 08/01/24 Range/Units 14:10 WBC 4.61 L (4.8-10.8) K/ul MPV 8.7 L (9.4-12.4) fL Sodium 132 L (136-145) mmol/L BUN/Creatinine Ratio 8.4 L (10-20) Glucose 100 H (70-99(Fasting)) mg/dl Globulin 2.4 L (2.5-4.0) gm/dl Diagnostic Findings Head CT 08/01/24 14:01 CT OF THE HEAD WITHOUT CONTRAST CLINICAL HISTORY: neuro deficit, acute stroke suspected COMPARISON STUDY: MRI brain November 19, 2023 and March 25, 2024. Head CT 03/25/2024. TECHNIQUE: Helical axial images of the head were obtained without IV contrast. Automated exposure control was utilized for the study. A dose lowering technique was utilized adhering to the principles of ALARA. FINDINGS: No acute intracranial hemorrhage, midline shift or mass effect is present. White matter hypodensities are unchanged and favor small vessel disease. The ventricular system is unremarkable. The basal cisterns are patent. No extra-axial collections are present. There are no findings to suggest acute dural sinus thrombosis or acute territorial infarct. No significant calvarial abnormalities are present. Visualized portions of the sinuses and mastoid air cells are clear. IMPRESSION: No acute intracranial findings. ACT 112: Negative or not required by law. Electronically signed by: Nathaniel Hamilton M.D. 08/01/2024 2:30 PM Head CTA 08/01/24 14:01 HEAD CTA HISTORY: neuro deficit, acute stroke suspected TECHNIQUE: Multiaxial CT images of the head were performed both before and after the intravenous administration of contrast to evaluate the major cerebral vessels. 3D/MIP images were also obtained. Sagittal and coronal reformats were reviewed. A dose lowering technique was utilized adhering to the principles of ALARA. COMPARISON: Head CT 8 11/19/2023. FINDINGS: There is no mass, hematoma, midline shift, or acute infarct. Visualized intracranial internal carotid arteries, distal vertebral arteries, and basilar artery are widely patent. There is no significant stenosis, occlusion, or aneurysm seen within the bilateral ACAs or MCAs. No change in the moderate multifocal stenoses within the bilateral posterior cerebral arteries. IMPRESSION: 1. No significant stenosis, occlusion, or aneurysm within the bilateral ACAs or MCAs. 2. No change in the moderate multifocal stenoses within the bilateral posterior cerebral arteries. ACT 112: Negative or not required by law. Electronically signed by: Jose Caban M.D. 08/01/2024 2:52 PM Neck CTA 08/01/24 14:01 CT angio neck with con CLINICAL HISTORY: 68 years-old Female with neuro deficit, acute stroke suspected. Acute stroke like symptoms with right arm numbness COMPARISON STUDY: Head CT of same day, CTA neck 11/19/2023 TECHNIQUE: Following the IV administration of 112 mL of Optiray, CT angiogram of the neck was performed from the aortic arch to the skull base. Images are reviewed in the axial, sagittal, and coronal planes. 3-D MIPS images are created and assessed. IV contrast was administered without complication. All measurements were calculated based on NASCET criteria. A dose lowering technique was utilized adhering to the principles of ALARA. CT DOSE: 1112.04 mGy.cm FINDINGS: There is no cervical lymphadenopathy. No acute cervical spine fractures are present. The bilateral common carotid, cervical internal carotid and vertebral arteries are patent. There is mild stenosis at the origin of the left subclavian artery. The right vertebral is dominant and patent. There is no dissection or aneurysm within the neck. There is mild plaque within the proximal bilateral internal carotid arteries without significant stenosis. IMPRESSION:Unremarkable CTA of the neck. ACT 112: Negative or not required by law. The above report was generated using voice recognition software. It may contain grammatical, syntax or spelling errors. Electronically signed by: Fredy Knight M.D. 08/01/2024 2:37 PM ECG Additional Comments: Sinus bradycardia without acute ST segment or T wave changes Code Status & VTE Plan Code Status DNR/DNI VTE Prophylaxis Plan VTE Prophylaxis will be ordered: Yes Supervising Physician Co-Signing Physician Notes I personally saw and examined the patient. I verified all gonzalez points and agree with Blas Strong PA-C with the following exceptions and/or additions: 68 year old female presents to the ER with left sided facial numbness and arm numbness. She denies any weakness to me but reported subjective weakness earlier of her left upper extremity. Multiple brain MRIs reviewed and reassured patient that none showed an acute stroke as she thought she was diagnosed with stroke on all her other occasions but on reading prior neurology consult this appears to b e more of a complex migraine without headache O/E numbness on left side of face in V1-V3 distribution. CN2-> 12 otherwise intact. no extremity weakness or numbness, HS RRR, no murmurs, Chest CTAB, Abdo SNT A/P Suspected complex migraine - multiple presentations with similar symptoms and negative MRIs, seen previously by neurology. Suspect etiology is complex migraine. Patient working on higher level of care placement regardless therefore will have PT/OT to assess her. PG Care Time/CCT Total # of Minutes Spent Total Time Spent with Patient: Total time spent is greater than 50% in coordination of care (as documented) at patient's floor/unit and/or counseling patient: Coding [place] [address] INT INP/OBS CARE 3/75MIN Patient Type Established Medical Decision Making High Complexity Diagnoses Stroke-like symptoms R29.90 Parkinson's disease, unspecified whether dyskinesia present, unspecified whether manifestations fluctuate G20.A1 Dyskinesia presence: unspecified whether dyskinesia Fluctuating manifestations: unspecified whether manifestations fluctuate Parkinsonism type: Parkinson's disease Failure to thrive in adult R62.7 Bladder retention of urine R33.9 Constipation K59.00 Depression with anxiety F41.8 (2) Parkinsonism Dyskinesia presence: unspecified whether dyskinesia Fluctuating manifestations: unspecified whether manifestations fluctuate Parkinsonism type: Parkinson's disease Qualified Code(s): G20.A1 - Parkinson's disease without dy skinesia, without mention of fluctuations
[2024-08-01] MEDS ORDERED: PHARMACIST DISCHARGE MED REC CONSULT PRN (15:19)
[2024-08-01] MEDS: ASPIRIN CHEW 324 MG PO STA (15:29)
--- NOTE | 2024-08-01 16:32 | XRay Report ---
XR chest 1V portable HISTORY: 68 years-old Female neuro deficit, acute stroke suspected acute stroke like symptoms COMPARISON: 03/25/2024 TECHNIQUE: AP view of the chest FINDINGS: Cardiac mediastinal and hilar silhouettes are within normal limits. No pneumothorax, pleural effusion or airspace consolidation. Bones of the chest appear grossly intact. IMPRESSION: No acute process. ACT 112: Negative or not required by law. The above report was generated using voice recognition software. It may contain grammatical, syntax o r spelling errors. Electronically signed by: Fredy Knight M.D. 08/01/2024 4:31 PM
[2024-08-01] MEDS: ATORVASTATIN 40 MG TAB PO STA (16:48)
[2024-08-01] MEDS: POLYETHYLENE (MIRALAX) 17 GM PACK PO SCH (16:48)
[2024-08-01] MEDS: SENNA 8.6 MG TAB PO SCH (16:48)
--- NOTE | 2024-08-01 18:40 | Magnetic Resonance Report ---
MR brain wo con HISTORY: 68 years-old Female stroke workup acute strokelike symptoms COMPARISON: Head CT of same day TECHNIQUE: Multiple and multisequence MRI of the brain was obtained without IV contrast FINDINGS: No restricted diffusion. Partially into sella. 3 mm pineal gland cyst. No acute intracranial hemorrha ge, midline shift, abnormal extra-axial collection, hydrocephalus or intra-axial mass. Involutional c hanges with moderate to extensive T2/FLAIR hyperintense foci throughout the white matter. Cerebral ve nous sinuses and major arterial flow voids appear patent. Prior bilateral lens repair. Mastoid air ce lls and paranasal sinuses are clear. IMPRESSION: 1. No acute intracranial abnormality, specifically there is no acute or subacute infarct. 2. Involutional changes with moderate to extensive chronic microvascular ischemic disease ACT 112: Negative or not required by law. The above report was generated using voice recognition software. It may contain grammatical, syntax o r spelling errors. Electronically signed by: Fredy Knight M.D. 08/01/2024 6:38 PM
[2024-08-01] MEDS ORDERED: ARTIFICIAL TEARS OP PRN (20:57)
[2024-08-01] MEDS: VENLAFAXINE HCL XR 75 MG CAPXR PO SCH (22:11)
[2024-08-01] MEDS: VERAPAMIL HCL 240 MG TABCR PO SCH (22:11)
[2024-08-01] MEDS: AMITRIPTYLINE HCL 25 MG TAB PO SCH (22:11)
[2024-08-01] MEDS: PANTOprazole 40 MG TAB PO SCH (22:12)
[2024-08-01] MEDS: SODIUM CHLORIDE 1 GM TABLET PO SCH (22:12)
[2024-08-01] MEDS: valACYclovir HCL 500 MG TABLET PO SCH (22:12)
[2024-08-01] MEDS: busPIRone 5 MG TAB PO SCH (22:13)
[2024-08-01] MEDS: TAMSULOSIN HCL 0.4 MG CAP PO SCH (22:13)
[2024-08-01] MEDS: clonazePAM 0.5 MG TAB PO SCH (22:15)
[2024-08-01 23:11] LABS: Appearance Urine Clear (Clear); Bacteria Urine Automated None Seen (None Seen); Bilirubin Urine Negative (Negative); Blood Urine 2+ (Negative); Cast Urine Automated 0-2 /lpf (0-2); Color Urine Yellow; Epithelial Cell Urine Auto 0-2 /hpf (0-2); Glucose Urine UA Negative (Negative); Ketones Urine Trace (Negative); Leukocyte Esterase Urine Trace (Negative); Nitrite Urine Negative (Negative); Protein Urine Trace (Negative); RBC Urine Automated >20 /hpf (0-2); Specific Gravity Urine > 1.045 (1.000-1.030); Urobilinogen Urine Negative (Negative)
[2024-08-02] MEDS: LEVOTHYROXINE SODIUM 75 MCG TABLET PO SCH (06:13)
--- NOTE | 2024-08-02 06:39 | Electrocardiogram Report ---
Test Reason : Blood Pressure : */* mmHG Vent. Rate : 57 BPM Atrial Rate : 57 BPM P-R Int : 162 ms QRS Dur : 84 ms QT Int : 446 ms P-R-T Axes : 53 29 53 degrees QTcB Int : 434 ms Sinus bradycardia Otherwise normal ECG When compared with ECG of 25-Mar-2024 17:40, No significant change was found Confirmed by Jerry Wiley ([id number]) on 08/02/2024 6:39:28 AM Referred By: Confirmed By: Jerry Wiley
[2024-08-02 07:03] LABS: Hematocrit (blood only) 37.6 % (37.0-47.0); Hemoglobin 12.6 g/dl (12.0-16.0); Mean Corpuscular Hemoglobin 31.2 pg (25.0-34.0); Mean Corpuscular Hgb Conc 33.5 g/dL (32.0-36.0); Mean Corpuscular Volume 93.1 fL (80.0-100.0); Mean Platelet Volume 8.6 fL (9.4-12.4); Platelet Count 240 K/uL (130-400); RDW Coefficient of Variation 12.8 % (11.5-14.5); RDW Standard Deviation 43.6 fL (36.4-46.3); Red Blood Count 4.04 M/uL (4.20-5.40)
[2024-08-02 07:31] LABS: Prothrombin Time 10.6 Seconds (9.0-12.0)
[2024-08-02 07:34] LABS: BUN Creatinine Ratio 10.4 (10-20); Calcium 9.3 mg/dl (8.6-10.3); Chol HDL Ratio 6.1 (0-5); Creatinine Clr Calc Pharmacy 47.1 ml/min; Est GFR (African American) 62.9 ml/min; Est GFR (Non-African American) 54.3 ml/min; Magnesium 2.1 mg/dl (1.7-2.4); Potassium 4.5 mmol/L (3.5-5.1)
[2024-08-02 07:50] LABS: Estimated Average Glucose 128 mg/dl; Hemoglobin A1C 6.1 % (4.5-5.6)
[2024-08-02] MEDS: lisinopril 10 MG TAB PO SCH (07:59)
[2024-08-02] MEDS: VENLAFAXINE HCL XR 150 MG CAPXR PO SCH (07:59)
[2024-08-02] MEDS: ATORVASTATIN 40 MG TAB PO SCH (07:59)
[2024-08-02] MEDS: CLOPIDOGREL BISULFATE 75 MG TAB PO SCH (08:00)
--- NOTE | 2024-08-02 09:58 | Neurology Consultation ---
Date of Consultation August 02, 2024 Assessment & Plan (1) Left sided numbness: History of Present Illness Attending Physician: Cj Wei History of Present Illness pt this morning feeling much better with left side. having abdominal cramps again and difficulty bowel movements. mri brain negative. chart reviewed. admission HPI: Charley is a 68-year-old female with a past medical history significant for vascular parkinsonism, complicated/hemiplegic migraine, frequent falls, anxiety, IBS, previous CVA with right sided weakness on Plavix, hypothyroidism on Synthroid, hypertension on lisinopril/verapamil who presented to the [facility] ED via EMS from home due to acute onset of left-sided numbness/paresthesias and anxiety while attempting to have a bowel movement this morning. Patient was reportedly hyperventilating on EMS arrival. Was noted to be hypertensive on arrival with systolic blood pressure in the 160s and bradycardic with heart rate in the 50s but otherwise stable. Labs were significant for a sodium of 132 which appears near her chronic baseline. CT of the head/brain without contrast, CTA of the head, and CT of the neck were read as unchanged from previous. The patient was evaluated by [facility] who did not feel that she would be a TNK candidate but did recommend loading the patient with aspirin and admitting for ongoing TIA/[facility] workup[facility] on [facility]/Plavix for now and allowing permissive hypertension until her MRI of the brain is obtained over the next 24 hours. Prior to admission the patient was given 324 mg aspirin. Patient was sitting in bed no significant distress but does appear anxious. Explains that she had woken up in her normal state of health which includes chronic right sided weakness due to previous CVA. States that she has been having issues with constipation and urinary retention over the past 1 to 2 weeks. She had been sitting on her home toilet trying to have a bowel movement and states that she had been straining hard for a few minutes when she had acute onset of feeling lightheaded then experiencing left-sided numbness on her left face, left upper extremity, and left lower extremity. When asked, she states that she did not have complete numbness on her entire left upper or left lower extremity but would experience the numbness/paresthesias in different parts of her extremities. States that the left side of her mouth and lips were significantly numb earlier. States that she feels as though her left upper extremity and left lower extremity are currently weaker than their baseline. Explains that her paresthesias on the left side of her body are significantly improved compared to arrival but not completely resolved at this time. Denies current headache, recent changes in vision, hearing, taste, smell, chest pain, shortness of breath, nausea/vomiting, dysuria/hematuria, diarrhea, and recent trauma. States that she is experiencing suprapubic discomfort at this time as she has not been able to urinate all day. Bedside bladder scan shows approximately 900 cc of urinary retention. She explains that she has been working with her PCP and outpatient residential case manager to be placed as she has been unable to safely care for self at home as she lives alone. She confirms that she is a DNR/DNI and that she would want her son to make medical decisions for her if she cannot make them herself. Confirms that she had all of her a.m. medications prior to ED arrival. Allergies Allergy/AdvReac Type Severity Reaction Status Date / Time methylprednisolone AdvReac Severe Psychosis Verified 08/01/24 20:23 ciprofloxacin [From Cipro] AdvReac Intermediate nausea Verified 08/01/24 20:23 erythromycin base AdvReac Intermediate VOMITTING Verified 08/01/24 20:23 Macrolide Antibiotics AdvReac Intermediate STOMACH Verified 08/01/24 20:23 UPSET Home Medications Medication Instructions Recorded Confirmed Type cyanocobalamin (vitamin B-12) 1,000 mcg sublingual QAM 05/03/20 08/01/24 History 1,000 mcg sublingual lozenge latanoprost 0.005 % eye drops 1 drp ophthalmic (eye) HS 10/22/21 08/01/24 History vfravvyxyw-wjxjfdoezcmnm-zxxldvnn 1 - 2 tab PO .Q4-5H PRN pain 06/15/23 08/01/24 History 50 mg-325 mg-40 mg tablet cyclosporine 0.05 % eye drops in a 1 drp OPB Q12H 06/15/23 08/01/24 History dropperette (Restasis) peg 400-propylene glycol 0.4 %-0.3 1 drp OPB QID 06/15/23 08/01/24 History % eye drops (Systane (propylene glycol)) fluticasone propionate 50 1 spray intranasal QAM PRN Allergy 08/23/23 08/01/24 Rx mcg/actuation nasal Symptoms #16 grams spray,suspension levothyroxine 75 mcg capsule 75 mcg PO DAILY #90 caps 08/23/23 08/01/24 Rx valacyclovir 500 mg tablet 500 mg PO HS #90 tabs 08/23/23 08/01/24 Rx pantoprazole 40 mg tablet,delayed 40 mg PO BID #180 tabs 11/15/23 08/01/24 Rx release tobramycin 0.3 % eye drops 1 drp ophthalmic (eye) Q4H 5 days 11/15/23 08/01/24 Rx #5 mL lidocaine 5 % topical patch 1 patch transdermal QAM #30 ea 03/27/24 08/01/24 Rx hospital bed #1 ea 03/30/24 07/23/24 Rx potassium chloride 10 mEq 10 meq PO QAM #30 tabs 04/26/24 08/01/24 Rx tablet,extended release (Klor-Con) buspirone 10 mg tablet 20 mg (2 x 10 mg) PO TID #180 tabs 05/14/24 08/01/24 Rx sodium chloride 1,000 mg soluble 1,000 mg PO BID #60 tabs 05/30/24 08/01/24 Rx tablet amitriptyline 25 mg tablet 25 mg PO HS #90 tabs 06/28/24 08/01/24 Rx clopidogrel 75 mg tablet 75 mg PO DAILY #90 tabs 06/28/24 08/01/24 Rx lisinopril 10 mg tablet 10 mg PO QAM #90 tabs 06/28/24 08/01/24 Rx tamsulosin 0.4 mg capsule 0.4 mg PO HS #90 caps 06/28/24 08/01/24 Rx venlafaxine 150 mg 150 mg PO QAM #90 caps 06/28/24 08/01/24 Rx capsule,extended release 24 hr venlafaxine 75 mg capsule,extended 75 mg PO HS #90 caps 06/28/24 08/01/24 Rx release 24 hr verapamil 240 mg 24 hr 240 mg PO HS 30 days #30 caps 06/28/24 08/01/24 Rx capsule,extended release clonazepam 0.5 mg tablet 0.5 mg PO TID #90 tabs 07/24/24 08/01/24 Rx diclofenac sodium 1 % topical gel 2 g EXT QID PRN Pain 08/01/24 08/01/24 History (Voltaren Arthritis Pain) Patient History Medical History Anemia Glaucoma Vertigo Nausea and vomiting after administration of anesthetic agent On anticoagulant therapy Stroke October 22, 2021 -> treated at [facility]. right side weakness. December 21, 2021 Transient ischemic attack (TIA) August 2021. Parkinson disease History of COVID-19 Aug 17, 2020. no current issues History of anesthesia reaction unsure of the medication drug; reports getting a locked jaw after a surgery (~) (unsure if it was vein stripping surgery or hysterectomy) Migraine Old myocardial infarct (09/20/11) no stents -- no current cardiology, follows with pcp Cervical radiculopathy Arthralgia of multiple sites Anemia Acid reflux Surgical History Hx of cataract extraction RT. History of cardiac cath Lucie Salazar. no stents History of esophagogastroduodenoscopy (EGD) History of laparoscopy History of colonoscopy H/O varicose vein ligation and stripping S/P total abdominal hysterectomy with BSO H/O rectocele repair cystocele and rectocele H/O ovarian cystectomy History of appendectomy Family History Mother , age 81 of a stroke Myocardial infarction Stroke Heart disease Father , age 89 of a stroke Stroke Other No family history of adverse response to anesthesia Denies family history of Ovarian cancer Prostate cancer Breast cancer Colorectal cancer Social History Smoking Status: Never smoker Second Hand Exposure: No; Do You Dip or Chew Tobacco: No; Tobacco Cessation Education Requested by Patient: No Hx Alcohol Use: No Hx Substance Use: No Preferred Language: Citizen Of [place] Communication Ability: Effective Visual Impairment: Limited Hearing Ability: Use of Hearing Aid Bilingual Medical Receptionist Required: No Beliefs That Will Affect Care: None marital status: / Current Living Situation: Alone current occupational status: retired 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 How many Children do You have: 2 Other Information That Helps Us Care for You: No Feels Safe at Home: Yes Safety Concerns: Feels Safe At This Time Childhood Exposure to Second-Hand Smoke: No Diet: regular caffeine: Yes during the past year weight has: remained stable Dental Care, Regularly: No Physical Activity Frequency: Daily Seatbelt Use: always Sunscreen Use: Yes (sometimes) Assistive Devices: Denture - Upper, Denture - Lower and Glasses Exam (Neuro) Physical Exam: HEENT: normocephalic grossly Neuro: Mental: AOx4, fluent speech, normal comprehension, no apraxia, no L/R confusion, no neglect CN: PERRL, Full EOM, symmetric face, midline T/U/P, Motor: No abnormal movements, normal tone, 5/5 t/o bilaterally Sens: intact to touch b/l grossly Coord: intact FNT b/l DTR: 2+ sym b/l Impression: 68 yo female with transient left limbs paresthesia resolved in setting of anxiety and abdominal GI symptoms and cramps. Does not appears to be stroke or TIA in nature. likely anxiety and GI symptoms contributing. Recommendations: no further stroke work up needed. improve anxiety and GI symptoms/cramps. not much add from neurology call again if new question. will sign off. Chart reviewed I have spent more than 50% educating patient about potential diagnosis and neurological evaluation and coordinating care with patient's treatment team. Total time spent (including chart review and coordination of care): 45 min (this includes chart review). Results & Data Vital Signs (Past 12 Hours) Vital Signs Temp Pulse Resp BP BP Pulse Ox O2 Del Method 08/02/24 08:05 36.8 C 62 18 103/68 95 Room Air 08/02/24 03:00 36.6 C 62 16 91/54 L 94 Room Air 08/01/24 23:29 36.7 C 66 18 105/68 96 Room Air PG Care Time/CCT Total # of Minutes Spent Total Time Spent with Patient: Total time spent is greater than 50% in coordination of care (as documented) at patient's floor/unit and/or counseling patient: Coding Level of Care Code 98285 IN/OBS CONSULT LVL 3,45M Diagnoses Left sided numbness R20.0
--- NOTE | 2024-08-02 23:31 | Hospitalist Progress Note ---
Date of Service August 02, 2024 Assessment & Plan (1) Stroke-like symptoms: Plan: Admit to the PCU on telemetry Currently stable, nontoxic-appearing, with improved but not resolved symptoms Presented to the ED via EMS on 08/01/2024 due to acute onset of left-sided paresthesias and subjective weakness in the left upper and lower extremities while straining to have a bowel movement this morning CT of the head/brain without contrast, CTA of the head/neck were read as negative for acute changes compared to previous Patient was evaluated by [facility] who did not recommend TNK administration but did recommend loading the patient with aspirin and continuing with dual antiplatelet therapy for now while ongoing CVA workup is obtained Per review of previous admissions and last neurology clinic note from 01/23/2024, patient has a history of strokelike symptoms and complicated migraine with status migrainosus on verapamil and venlafaxine > Patient explained that she did have a headache prior to admission which has nearly resolved, unsure at this time if presentation is a result of recurrent migraine versus new CVA at this time Patient was given 324 mg aspirin in the ED and confirm she had her a.m. dose of Plavix prior to ED arrival Patient is still experiencing subjective left-sided facial numbness, intermittent paresthesias at various spots of the left upper extremity which she reports changes since arrival, and left upper extremity/lower extremity weakness compared to right Patient does have a previous history of CVA Will plan to continue dual antiplatelet therapy at this time and allow permissive hypertension until MRI results are back Patient does not appear to be on a statin, will start 40 mg p.o. atorvastatin now then continue daily MRI of the brain was negative. -Consulted neurology: Appears to be transient left limb paresthesia in the setting of anxiety and abdominal GI symptoms. Does not appear to be a TIA in nature, stroke ruled out by MRI. (2) Parkinsonism: Plan: Previously taken off pramipexole due to history of hyponatremia and reportedly did not tolerate Sinemet PT/OT consults, case management consult, fall/aspiration (3) Failure to thrive in adult: Plan: Patient was currently working with her PCP and outpatient case loader operator to try and find placement Will consult case loader operator and PT/OT to see if placement can be initiated at time of discharge (4) Bladder retention of urine: Plan: Patient was experiencing significant suprapubic discomfort at the time of exam and reported she has been having difficulty urinating over the past week Bedside bladder scan at the time of my exam shows approximately 900 cc of urinary retention Will place Villatoro catheter at the time of admission as patient reports previous history of requiring Villatoro catheter placement removed villatoro on 08/02 will monitor. (5) Constipation: Plan: Patient has been experiencing approximately 4 days of constipation, this is an ongoing chronic issue Abdominal exam is benign with ongoing bowel sounds and passage of gas Will start scheduled MiraLAX and senna for now Monitor for consistent bowel movements moving forward (6) Depression with anxiety: Plan: Continue buspirone, amitriptyline, as needed clonazepam, and venlafaxine Admission and Anticipated Discharge Date Admission Date: August 01, 2024 Subjective Patient reports feeling well. Review of Systems Review of Systems: All systems reviewed & are unremarkable except as noted in HPI & below Physical Exam Physical Exam: General: Patient in NAD. HEENT: Normocephalic, atraumatic, no scleral icterus, pupils around round, symmetrical, and reactive to light, moist mucus membranes, trachea midline, no thyromegaly Chest/Pulm: No respiratory distress, symmetrical chest expansion, clear breath sounds throughout Cardiac: RRR, no murmurs noted Abdomen: Negative for ascites and bruising, normoactive bowel sounds, soft, mildly tender to palpation in the suprapubic area without rebound tenderness, otherwise nontender to palpation throughout Musculoskeletal: Symmetrical and without signs of acute trauma Extremities: Radial, dorsalis pedis, and posterior tibial pulses are intact and symmetrical, no edema noted in the BL LE's Skin: Warm, dry, no rashes , lesions, or scars noted Psych: Patient is anxious but polite and cooperative during the exam Results & Data Results & Data Vital Signs (Past 12 Hours) Vital Signs Temp Pulse Resp BP BP Pulse Ox O2 Del Method 08/02/24 20:02 36.8 C 64 17 127/72 95 Room Air 08/02/24 16:01 36.7 C 62 18 119/70 95 Room Air 08/02/24 12:26 36.6 C 66 18 118/67 96 Room Air PG Care Time/CCT Total # of Minutes Spent Total Time Spent with Patient: Total time spent is greater than 50% in coordination of care (as documented) at patient's floor/unit and/or counseling patient: Coding Level of Care Code 56921 SUB INP/OBS CARE MIN Diagnoses Stroke-like symptoms R29.90 Parkinson's disease, unspecified whether dyskinesia present, unspecified whether manifestations fluctuate G20.A1 Dyskinesia presence: unspecified whether dyskinesia Fluctuating manifestations: unspecified whether manifestations fluctuate Parkinsonism type: Parkinson's disease Failure to thrive in adult R62.7 Bladder retention of urine R33.9 Constipation K59.00 Depression with anxiety F41.8 (2) Parkinsonism Dyskinesia presence: unspecified whether dyskinesia Fluctuating manifestations: unspecified whether manifestations fluctuate Parkinsonism type: Parkinson's disease Qualified Code(s): G20.A1 - Parkinson's disease without dyskinesia, without mention of fluctuations
[2024-08-03 07:50] LABS: Hemoglobin 12.2 g/dl (12.0-16.0); Mean Corpuscular Hemoglobin 31.1 pg (25.0-34.0); Mean Corpuscular Hgb Conc 33.9 g/dL (32.0-36.0); Mean Corpuscular Volume 91.8 fL (80.0-100.0); Mean Platelet Volume 8.9 fL (9.4-12.4); Platelet Count 233 K/uL (130-400); RDW Coefficient of Variation 12.6 % (11.5-14.5); RDW Standard Deviation 42.4 fL (36.4-46.3); Red Blood Count 3.92 M/uL (4.20-5.40); White Blood Count 6.17 K/ul (4.8-10.8)
[2024-08-03 08:05] LABS: BUN Creatinine Ratio 11.4 (10-20); Creatinine Clr Calc Pharmacy 57.5 ml/min; Est GFR (African American) 78.8 ml/min; Magnesium 1.8 mg/dl (1.7-2.4); Potassium 4.1 mmol/L (3.5-5.1)
[2024-08-03 08:11] LABS: Prothrombin Time 10.4 Seconds (9.0-12.0)
[2024-08-03 08:42] VITALS: BP 127/74; PULSE 58; RESP 17; TEMP 97.9; O2SAT 94
--- NOTE | 2024-08-05 15:07 | Discharge Summary ---
Discharge Summary Date of Service August 03, 2024 Principal Dx & Hospital Course #1 = Principal Diagnosis (1) Stroke-like symptoms: Admit to the PCU on telemetry Currently stable, nontoxic-appearing, with improved but not resolved symptoms Presented to the ED via EMS on 08/01/2024 due to acute onset of left-sided paresthesias and subjective weakness in the left upper and lower extremities while straining to have a bowel movement this morning CT of the head/brain without contrast, CTA of the head/neck were read as negative for acute changes compared to previous Patient was evaluated by [facility] who did not recommend TNK administ ration but did recommend loading the patient with aspirin and continuing with dual antiplatelet therapy for now while ongoing CVA workup is obtained Per review of previous admissions and last neurology clinic note from 01/23/2024, patient has a history of strokelike symptoms and complicated migraine with status migrainosus on verapamil and venlafaxine > Patient explained that she did have a headache prior to admission which has nearly resolved, unsure at this time if presentation is a result of recurrent migraine versus new CVA at this time Patient was given 324 mg aspirin in the ED and confirm she had her a.m. dose of Plavix prior to ED arrival Patient is still experiencing subjective left-sided facial numbness, intermittent paresthesias at various spots of the left upper extremity which she reports changes since arrival, and left upper extremity/lower extremity weakness compared to right Patient does have a previous history of CVA Will plan to continue dual antiplatelet therapy at this time and allow permissive hypertension until MRI results are back Patient does not appear to be on a statin, will start 40 mg p.o. atorvastatin now then continue daily MRI of the brain was negative. -Consulted neurology: Appears to be transient left limb paresthesia in the setting of anxiety and abdominal GI symptoms. Does not appear to be a TIA in nature, stroke ruled out by MRI. Patient discharged on the . (2) Parkinsonism: Previously taken off pramipexole due to history of hyponatremia and reportedly did not tolerate Sinemet PT/OT consults, case management consult, fall/aspiration (3) Failure to thrive in adult: Patient was currently working with her PCP and outpatient rn case management to try and find placement DIscharged home. (4) Bladder retention of urine: Patient was experiencing significant suprapubic discomfort at the time of exam and reported she has been having difficulty urinating over the past week Bedside bladder scan at the time of my exam shows approximately 900 cc of urinary retention Will place Villatoro catheter at the time of admission as patient reports previous history of requiring Villatoro catheter placement removed villatoro on 08/02 will monitor. (5) Constipation: Patient has been experiencing approximately 4 days of constipation, this is an ongoing chronic issue Abdominal exam is benign with ongoing bowel sounds and passage of gas (6) Depression with anxiety: Continue buspirone, amitriptyline, as needed clonazepam, and venlafaxine Admission HPI Per Admitting Provider Charley is a 68-year-old female with a past medical history significant for vascular parkinsonism, complicated/hemiplegic migraine, frequent falls, anxiety, IBS, previous CVA with right sided weakness on Plavix, hypothyroidism on Synthroid, hypertension on lisinopril/verapamil who presented to the [facility] ED via EMS from home due to acute onset of left-sided numbness/paresthesias and anxiety while attempting to have a bowel movement this morning. Patient was reportedly hyperventilating on EMS arrival. Was noted to be hypertensive on arrival with systolic blood pressure in the 160s and bradycardic with heart rate in the 50s but otherwise stable. Labs were significant for a sodium of 132 which appears near her chronic baseline. CT of the head/brain without contrast, CTA of the head, and CT of the neck were read as unchanged from previous. The patient was evaluated by [facility] who did not feel that she would be a TNK candidate but did recommend loading the patient with aspirin and admitting for ongoing TIA[facility] workup[facility] on [facility]/Plavix for now and allowing permissive hypertension until her MRI of the brain is obtained over the next 24 hours. Prior to admission the patient was given 324 mg aspirin. Patient was sitting in bed no significant distress but does appear anxious. Explains that she had woken up in her normal state of health which includes chronic right sided weakness due to previous CVA. States that she has been having issues with constipation and urinary retention over the past 1 to 2 weeks. She had been sitting on her home toilet trying to have a bowel movement and states that she had been straining hard for a few minutes when she had acute onset of feeling lightheaded then experiencing left-sided numbness on her left face, left upper extremity, and left lower extremity. When asked, she states that she did not have complete numbness on her entire left upper or left lower extremity but would experience the numbness/paresthesias in different parts of her extremities. States that the left side of her mouth and lips were significantly numb earlier. States that she feels as though her left upper extremity and left lower extremity are currently weaker than their baseline. Explains that her paresthesias on the left side of her body are significantly improved compared to arrival but not completely resolved at this time. Denies current headache, recent changes in vision, hearing, taste, smell, chest pain, shortness of breath, nausea/vomiting, dysuria/hematuria, diarrhea, and recent trauma. States that she is experiencing suprapubic discomfort at this time as she has not been able to urinate all day. Bedside bladder scan shows approximately 900 cc of urinary retention. She explains that she has been w orking with her PCP and outpatient rn case management to be placed as she has been unable to safely care for self at home as she lives alone. She confirms that she is a DNR/DNI and that she would want her son to make medical decisions for her if she cannot make them herself. Confirms that she had all of her a.m. medications prior to ED arrival. Discharge Exam General: Patient in NAD. HEENT: Normocephalic, atraumatic, no scleral icterus, pupils around round, symmetrical, and reactive to light, moist mucus membranes, trachea midline, no thyromegaly Chest/Pulm: No respiratory distress, symmetrical chest expansion, clear breath sounds throughout Cardiac: RRR, no murmurs noted Abdomen: Negative for ascites and bruising, normoactive bowel sounds, soft, mildly tender to palpation in the suprapubic area without rebound tenderness, otherwise nontender to palpation throughout Musculoskeletal: Symmetrical and without signs of acute trauma Extremities: Radial, dorsalis pedis, and posterior tibial pulses are intact and symmetrical, no edema noted in the BL LE's Skin: Warm, dry, no rashes , lesions, or scars noted Psych: Patient is calm. Discharge Plan Discharge Items Patient Disposition: Home - Self-Care Reason For Visit: stroke like symptoms Discharge Diagnosis: stroke like symptoms. Activity: Resume your previous activity Non-emergency contact: Primary Care Provider Call non-emergency contact if: you have any medication questions Follow-up/Referrals: Angelina Hobbs CRNP [Primary Care Provider] - 08/06/24 10:30 am Diet: Heart Healthy Diet Texture: Easy to Chew Addtl Attending Provider Instructions: You were worked up for a possible stroke or mini stroke. Thankfully your imaging did not show a sign of a stroke. Neurology evaluated you and also agreed this was not stroke related. This may be due to cramps or anxiety. I will recommend you followup with your PCP in 1-2 weeks. Pending Studies at Discharge: No Stand-Alone Forms: [facility], Smoking Cessation Medications and DC Order Prescriptions: Continued fluticasone propionate 50 mcg/actuation spray,suspension 1 spray intranasal QAM PRN (Reason: Allergy Symptoms) Qty: 16 3RF levothyroxine 75 mcg capsule 75 mcg PO DAILY Qty: 90 3RF valacyclovir 500 mg tablet 500 mg PO HS Qty: 90 4RF potassium chloride [Klor-Con 10] 10 mEq tablet extended release 10 meq PO QAM Qty: 30 11RF sodium chloride 1,000 mg tablet,soluble 1,000 mg PO BID Qty: 60 11RF venlafaxine 150 mg capsule,extended release 24hr 150 mg PO QAM Qty: 90 3RF lisinopril 10 mg tablet 10 mg PO QAM Qty: 90 3RF clopidogrel 75 mg tablet 75 mg PO DAILY Qty: 90 3RF tamsulosin 0.4 mg capsule 0.4 mg PO HS Qty: 90 3RF Rx Instructions: TAKE 1 CAPSULE BY MOUTH DAILY venlafaxine 75 mg capsule,extended release 24hr 75 mg PO HS Qty: 90 3RF amitriptyline 25 mg tablet 25 mg PO HS Qty: 90 3RF verapamil 240 mg capsule,ext rel. pellets 24 hr 240 mg PO HS 30 Days Qty: 30 5RF clonazepam 0.5 mg tablet 0.5 mg PO TID Qty: 90 0RF Rx Instructions: temp increase tobramycin 0.3 % drops 1 drp ophthalmic (eye) Q4H 5 Days Qty: 5 0RF Rx Instructions: PLS DELIVER pantoprazole 40 mg tablet,delayed release (DR/EC) 40 mg PO BID Qty: 180 3RF buspirone 10 mg tablet 20 mg PO TID Qty: 180 3RF (DME) hospital bed See Rx Instructions .Route .MEDSUPPLY Qty: 1 0RF Rx Instructions: As directed cyanocobalamin (vitamin B-12) 1,000 mcg Lozenge 1,000 mcg SUBLINGUAL QAM latanoprost 0.005 % drops 1 drp ophthalmic (eye) HS cyclosporine [Restasis] 0.05 % Dropperette 1 drp OPB Q12H Systane (propylene glycol) 0.4-0.3 % Drops 1 drp OPB QID uyswagpecs-gaszsprelvcly-lsxl 50-325-40 mg tablet 1 - 2 tab PO .Q4-5H PRN (Reason: pain) Rx Instructions: every 4- 5 hours as needed for severe headache. No more than 2-3 days per week, max 6 tabs in 24 hours lidocaine 5 % Adhesive Patch,Medicated 1 patch transdermal QAM Qty: 30 0RF diclofenac sodium [Voltaren Arthritis Pain] 1 % gel 2 g EXT QID PRN (Reason: Pain) No Action nitrofurantoin monohyd/m-cryst [Macrobid] 100 mg capsule 100 mg PO BID Qty: 14 0RF Rx Instructions: must administer with a meal/food Discharge Orders: Discharge Order (Routine); Ordered 08/03/24 Ordered By: Cj Barragan/Other Patient Handouts: Managing Type 2 Diabetes Admission Data Admit Date/Time: 08/01/24 15:18 Attending Provider: Cj Wei Admit Provider: Rafael Suero Primary Care Provider: Angelina Hobbs Other Providers: Rafael Suero; Austin Morgan Other Interventions: Discharge Summary Assessment (RN) Last Done: 08/03/24 12:14 Hospital Stay Data Consultations 08/01/24 15:33 ED Decision to Admit Stat 08/02/24 08:20 Consult Neurology Routine Diagnostic Imagining Performed 08/01/24 14:01 CT angio head w con Stat CT angio neck with con Stat CT head/brain wo con Stat 08/01/24 15:33 MRI Brain [MR brain wo con] Stat Pending Results Patient Have Any Pending Studies at Discharge: No Discharge Instructions Given to Patient (Per Discharging Provider) You were worked up for a possible stroke or mini stroke. Thankfully your imaging did not show a sign of a stroke. Neurology evaluated you and also agreed this was not stroke related. This may be due to cramps or anxiety. I will recommend you followup with your PCP in 1-2 weeks. Total Time Total Time Spent Total Time Spent (In Minutes): 32 Coding Level of Care Code 22871 INP/OBS DISCH >30 MIN Diagnoses Stroke-like symptoms R29.90 Parkinson's disease, unspecified whether dyskinesia present, unspecified whether manifestations fluctuate G20.A1 Dyskinesia presence: unspecified whether dyskinesia Fluctuating manifestations: unspecified whether manifestations fluctuate Parkinsonism type: Parkinson's disease Failure to thrive in adult R62.7 Bladder retention of urine R33.9 Constipation K59.00 Depression with anxiety F41.8
== END 2024-08-03 13:36 | disposition home or self-care (01) | DRG 92 ==
LOC: ED 13:42 → EDINP 15:18 → SUATTDRO 15:18 → 2S 20:51 → 3N 08-03 00:21
DX: R20.0 Anesthesia of skin; K59.00 Constipation, unspecified; I69.351 Hemiplegia and hemiparesis following cerebral infarction affecting right dominant side; Z86.718 Personal history of other venous thrombosis and embolism; G43.909 Migraine, unspecified, not intractable, without status migrainosus; R62.7 Adult failure to thrive; I25.2 Old myocardial infarction; Z88.8 Allergy status to other drugs, medicaments and biological substances; F41.9 Anxiety disorder, unspecified; R33.9 Retention of urine, unspecified; Z85.828 Personal history of other malignant neoplasm of skin; Z82.3 Family history of stroke; Z79.890 Hormone replacement therapy; Z79.02 Long term (current) use of antithrombotics/antiplatelets; Z79.899 Other long term (current) drug therapy; F32.A Depression, unspecified; Z66 Do not resuscitate; G20.A1 Parkinson's disease without dyskinesia, without mention of fluctuations; I10 Essential (primary) hypertension; Z88.1 Allergy status to other antibiotic agents; E03.9 Hypothyroidism, unspecified; Z68.26 Body mass index [BMI] 26.0-26.9, adult; Z86.16 Personal history of COVID-19

== ENCOUNTER 2025-03-12 11:10 | Inpatient (IN) ==
[2025-03-12] MEDS: OPTIRAY 320 125ml IV ONE (11:38)
[2025-03-12 11:40] LABS: iSTAT Hemoglobin 11.9 g/dl (12.0-16.0); iSTAT Ionized Calcium 1.18 mmol/l (1.12-1.32)
[2025-03-12 11:48] LABS: Basophils # (auto) 0.03 K/uL (0.00-0.20); Basophils % (auto) 0.7 %; Eosinophils # (auto) 0.11 K/uL (0.00-0.50); Eosinophils % (auto) 2.6 %; Hematocrit (blood only) 34.8 % (37.0-47.0); Hemoglobin 11.7 g/dl (12.0-16.0); Immature Granulocytes # (auto) 0.01 K/uL (0.01-0.20); Immature Granulocytes % (auto) 0.2 %; Lymphocytes # (auto) 1.39 K/uL (1.20-3.40); Lymphocytes % (auto) 32.3 %; Mean Corpuscular Hemoglobin 31.1 pg (25.0-34.0); Mean Corpuscular Hgb Conc 33.6 g/dL (32.0-36.0); Mean Corpuscular Volume 92.6 fL (80.0-100.0); Mean Platelet Volume 9.3 fL (9.4-12.4); Monocytes # (auto) 0.42 K/uL (0.11-0.59); Monocytes % (auto) 9.7 %; Neutrophils # (auto) 2.35 K/uL (1.40-6.50); Neutrophils % (auto) 54.5 %; Platelet Count 258 K/uL (130-400); RDW Coefficient of Variation 13.2 % (11.5-14.5); RDW Standard Deviation 45.2 fL (36.4-46.3); Red Blood Count 3.76 M/uL (4.20-5.40); White Blood Count 4.31 K/ul (4.8-10.8)
--- NOTE | 2025-03-12 12:03 | Emergency Department Note ---
Impression & Plan Numbness on right side, History of CVA (cerebrovascular accident), Headache, Stroke-like symptoms ED Provider Note NAME: JUAN LUIS VELASQUEZ AGE: 69 SEX: F : 1955 ARRIVES VIA: Ambulance INFORMANT: [Patient][family] ED PROVIDER(S): [Urbano Paula MD] CHIEF COMPLAINT: TIA symptoms HISTORY OF PRESENT ILLNESS: The patient is a 69-year-old female with a history of CVA as well as complex migraine. She presents complaining of a headache that has been present for 12 days despite her outpatient meds. The headache was initially left-sided but is now right-sided. This morning, she awoke with a headache and shortly thereafter, noticed numbness to the right face, right arm and right leg. She tried to drink coffee and drooled on the right side. Her family thought her speech was a bit slurred. She presents for evaluation. She has not had cough or cold. No fever. She does take Plavix but no other stronger blood thinning agents. Patient has noticed numbness now for 4-1/2 hours. PMHx/PSHx/Social Hx: See Below PHYSICAL EXAM: GENERAL: Patient is in no acute distress. HEENT: No acute trauma, normocephalic atraumatic, mucous membranes moist, no nasal congestion. NECK: No stridor, no adenopathy, no meningismus, trachea is midline. LUNGS: Clear to auscultation bilaterally, no wheeze, no rhonchi, breath sounds equal. HEART: 2/6 systolic murmur, regular rate and rhythm. ABDOMEN: Soft, nontender, no peritonitis. EXTREMITIES: No cyanosis, full range of motion of all the joints without pain or difficulty. NEUROLOGIC: Awake and alert. There is some right upper and lower cerebellar dysfunction as well as some right upper and lower weakness. There is a very subtle speech slur, she does appear to have a subtle right facial droop with speaking that disappears when asked to smile. SKIN: No jaundice, no diaphoresis. DIFFERENTIAL DIAGNOSIS: Stroke, complex migraine, intracranial bleeding, electrolyte imbalance, among others. EMERGENCY DEPARTMENT PROCEDURES: MEDICAL DECISION MAKING: There is no leukocytosis. No worrisome anemia. There is a normal platelet count. No coagulopathy. No renal failure or significant electrolyte abnormality. No concerning liver enzyme elevation. The patient appears to be in a euthyroid state. ECG shows a sinus rhythm, no ischemia. Cardiac enzyme testing x 1 is not consistent with acute cardiac injury. Urinalysis does not show infection. Brain CT shows no acute bleed or mass effect. CTA of the neck and head were performed. There was no aneurysm, no clot. Stenosis of vessels noted previously was seen, the findings were stable. Chest x-ray did not show pneumonia or CHF. On exam, the patient had clear signs of weakness on the right and some subtle speech slur. I did have a stroke alert called. The patient was seen by [facility] neurology via telemedicine. The patient was not a candidate for TNK as she was out of the window. The stroke neurologist recommended a cocktail for potential migraine/complex migraine. If her symptoms did not resolve completely after the cocktail, she should be admitted for further stroke workup. The patient was given IV saline, IV Compazine, IV Benadryl, IV Zofran, IV Toradol, IV Tylenol. She did have some improvement but not complete improvement. The patient is to be hospitalized for further stroke workup. At this point, the true diagnosis is unknown, she will benefit from a neurology consult and further monitoring. I spoke with the patient and case management, the on-call hospitalist was consulted. Prior/Outside records/notes reviewed: None ECG per my interpretation: Indication was possible stroke. The ECG shows a normal sinus rhythm with a rate of 67. There is no ST elevation, no acute dysrhythmia. No PVCs. The QTc is 439. Continuous Cardiac Monitoring per my interpretation: An order was placed for continuous cardiac monitoring. The monitor shows a rate of 65 with normal sinus rhythm. Imaging/x-ray results per my interpretation: Chest x-ray does not show pneumonia or CHF. Chronic Medical/Social conditions affecting care: History of previous CVA Care/Management discussed with: [facility] neurology-Dr. Rojo. Case management and the on-call hospitalist. Level of care consideration(s): After review of the information above and other included data: --I believe the patient requires escalation of care to admission Critical Care Note: I have personally spent 52 minutes of critical care time in the direct management of this patient. This includes bedside care, interpretation of diagnostic studies, and testing, discussion with consultants, patient, and family members, and other required patient management activities. This 52 minutes is in excess of all separately billable procedures. 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 no active shingles currently Visual disturbance (Acute) Osteoarthritis of left knee Stroke migraine stroke (unsure of date -- within the last 7 years (since 2014) -> deficits include mild/minor dementia, finding right words, memory loss, right arm and leg weakness. follows with [facility]. Complicated migraine Numbness (Acute) Statin intolerance Hyponatremia (Acute) Weakness (Acute) Falls (Acute) Tear of medial meniscus of right knee Osteoarthritis of right knee Cerebrovascular disease Pre-diabetes Hyperlipidemia (Chronic) Patient has hx of intolerance to statin, has tried statins several times even with Co Q 10, and no longer dillan zetia either Headache, hemiplegic migraine (Chronic) Mitral valve disorder (Acute 09/20/11) Neuropathic pain Cystocele with rectocele 2010 Ataxia Complicated migraine with status migrainosus Constipation Gait disorder Parkinsonism (Acute) Restless legs syndrome (Chronic 09/20/11) Irritable bowel syndrome (Chronic 09/20/11) Depression with anxiety (Chronic) Hypothyroidism (Chronic) Memory impairment (Acute) mild - alert and oriented x3 Palpitations "irreegular heart beat" GERD (gastroesophageal reflux disease) Hypertension Hx of venous thrombosis and embolism (09/20/11) unsure of exact date. related to HRT. placed on anticoagulant since. Peripheral edema (Chronic) Osteoarthritis of hands, bilateral (Chronic) Esophageal dysmotility (Chronic) Medical History Anemia Glaucoma Vertigo Nausea and vomiting after administration of anesthetic agent On anticoagulant therapy Stroke October 22, 2021 -> treated at [facility]. right side weakness. December 21, 2021 Transient ischemic attack (TIA) August 2021. Parkinson disease History of COVID-19 Aug 17, 2020. no current issues History of anesthesia reaction unsure of the medication drug; reports getting a locked jaw after a surgery (~) (unsure if it was vein stripping surgery or hysterectomy) Migraine Old myocardial infarct (09/20/11) no stents -- no current cardiology, follows with pcp Cervical radiculopathy Arthralgia of multiple sites Anemia Acid reflux Surgical History Hx of cataract extraction History of cardiac cath History of esophagogastroduodenoscopy (EGD) History of laparoscopy History of colonoscopy H/O varicose vein ligation and stripping S/P total abdominal hysterectomy H/O rectocele repair H/O ovarian cystectomy History of appendectomy Family History Mother Myocardial infarction Stroke Heart disease Father Stroke Other No family history of adverse response to anesthesia Denies family history of Ovarian cancer Prostate cancer Breast cancer Colorectal cancer Social History Smoking Status: Never smoker Second Hand Exposure: No; Do You Dip or Chew Tobacco: No; Hx Alcohol Use: No Hx Substance Use: No Preferred Language: Argentine Communication Ability: Effective Visual Impairment: Limited Hearing Ability: Use of Hearing Aid Sales Lead Generator Required: No Beliefs That Will Affect Care: Alevism marital status: / Current Living Situation: Alone current occupational status: retired 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 How many Children do You have: 2 Feels Safe at Home: Yes Childhood Exposure to Second-Hand Smoke: No Diet: regular caffeine: Yes during the past year weight has: remained stable Dental Care, Regularly: No Physical Activity Frequency: Daily Seatbelt Use: always Sunscreen Use: Yes (sometimes) Assistive Devices: Cane and Walker Allergies Allergies Allergy/AdvReac Type Severity Reaction Status Date / Time methylprednisolone AdvReac Severe Psychosis Verified 12/06/24 13:27 ciprofloxacin [From Cipro] AdvReac Intermediate nausea Verified 12/06/24 13:27 erythromycin base AdvReac Intermediate VOMITTING Verified 12/06/24 13:27 Macrolide Antibiotics AdvReac Intermediate STOMACH Verified 12/06/24 13:27 UPSET Home Meds Home Medications Medication Instructions Recorded Confirmed cyanocobalamin (vitamin B-12) 1,000 mcg sublingual QAM 05/03/20 03/12/25 1,000 mcg sublingual lozenge latanoprost 0.005 % eye drops 1 drp ophthalmic (eye) HS 10/22/21 03/12/25 peg 400-propylene glycol 0.4 %-0.3 1 drp OPB UD 06/15/23 03/12/25 % eye drops (Systane (propylene glycol)) diclofenac sodium 1 % topical gel 2 g EXT QID PRN Pain 08/01/24 03/12/25 (Voltaren Arthritis Pain) tobramycin 0.3 % eye drops 1 drp ophthalmic (eye) UD 03/12/25 03/12/25 Previous Rx's Medication Instructions Recorded fluticasone propionate 50 1 spray intranasal QAM PRN Allergy 08/23/23 mcg/actuation nasal Symptoms #16 grams spray,suspension lidocaine 5 % topical patch 1 patch transdermal QAM #30 ea 03/27/24 hospital bed #1 ea 03/30/24 potassium chloride 10 mEq 10 meq PO QAM #30 tabs 04/26/24 tablet,extended release (Klor-Con) sodium chloride 1,000 mg soluble 1,000 mg PO BID #60 tabs 05/30/24 tablet lisinopril 10 mg tablet 10 mg PO QAM #90 tabs 06/28/24 levothyroxine 75 mcg capsule 75 mcg PO DAILY #90 caps 08/23/24 valacyclovir 500 mg tablet 500 mg PO HS #90 tabs 08/23/24 mirtazapine 15 mg tablet (Remeron) 15 mg PO DAILY #30 tabs 09/21/24 pantoprazole 40 mg tablet,delayed 40 mg PO BID #180 tabs 10/17/24 release clopidogrel 75 mg tablet 75 mg PO DAILY #90 tabs 11/13/24 tamsulosin 0.4 mg capsule 0.4 mg PO HS #90 caps 11/13/24 venlafaxine 150 mg 150 mg PO QAM #90 caps 11/13/24 capsule,extended release 24 hr venlafaxine 75 mg capsule,extended 75 mg PO HS #90 caps 11/13/24 release 24 hr amitriptyline 50 mg tablet 50 mg PO HS 30 days #30 tabs 12/06/24 verapamil 240 mg 24 hr 240 mg PO HS 30 days #30 caps 12/06/24 capsule,extended release buspirone 10 mg tablet 20 mg (2 x 10 mg) PO TID #180 tabs 12/12/24 clonazepam 0.5 mg tablet 0.5 mg PO TID #90 tabs 03/05/25 [id number]-[id number]-[id number] 1 - 2 tab PO .Q4-5H PRN pain #20 03/11/25 50 mg-325 mg-40 mg tablet tabs ondansetron HCl 4 mg tablet 4 mg PO TID PRN nausea and 03/11/25 vomiting #30 tabs Results & Data (ED) Vital Signs Vital Signs - 24 hr 03/12/25 11:21 03/12/25 12:00 03/12/25 12:00 Temperature 36.5 C Temperature Source Oral Pulse Rate 65 64 Pulse Rate [Left Finger] Pulse Rate from SpO2 Sensor 63 Respiratory Rate 20 30 H Respiratory Effort / Characteristics Non-Labored Spontaneous Respiratory Depth Normal Respiratory Pattern Regular Blood Pressure 151/84 H 151/84 H Blood Pressure [Left Arm] Blood Pressure Mean 106 94 Blood Pressure Mean [Left Arm] Pulse Oximetry 95 97 Oxygen Delivery Method Sepsis Recent Fever Within 48 Hours No Sepsis New/Unexplained Change in Mental Status N/A Sepsis Action Taken by Nursing No Action Required 03/12/25 12:00 03/12/25 12:05 03/12/25 14:00 Temperature Temperature Source Pulse Rate 71 Pulse Rate [Left Finger] 70 Pulse Rate from SpO2 Sensor Respiratory Rate 16 Respiratory Effort / Characteristics Respiratory Depth Respiratory Pattern Blood Pressure 151/84 H Blood Pressure [Left Arm] 144/79 H Blood Pressure Mean 94 Blood Pressure Mean [Left Arm] 100 Pulse Oximetry 98 Oxygen Delivery Method Room Air Sepsis Recent Fever Within 48 Hours Sepsis New/Unexplained Change in Mental Status Sepsis Action Taken by Nursing 03/12/25 16:01 Temperature Temperature Source Pulse Rate 62 Pulse Rate [Left Finger] Pulse Rate from SpO2 Sensor Respiratory Rate Respiratory Effort / Characteristics Respiratory Depth Respiratory Pattern Blood Pressure Blood Pressure [Left Arm] Blood Pressure Mean Blood Pressure Mean [Left Arm] Pulse Oximetry Oxygen Delivery Method Sepsis Recent Fever Within 48 Hours Sepsis New/Unexplained Change in Mental Status Sepsis Action Taken by Intermediate Medications Current Medication List: was personally reviewed by me Laboratory Data Attestation: I reviewed the patient's lab results. 03/12/25 11:20 03/12/25 11:20 Lab Results 04/03/12/25 03/12/25 Range/Units 11:20 11:29 12:47 WBC 4.31 L (4.8-10.8) K/ul RBC 3.76 L (4.20-5.40) M/uL Hgb 11.7 L (12.0-16.0) g/dl POC Hgb 11.9 L (12.0-16.0) g/dl Hct 34.8 L (37.0-47.0) % POC Hct 35 L (37-47) % MCV 92.6 (80.0-100.0) fL MCH 31.1 (25.0-34.0) pg MCHC 33.6 (32.0-36.0) g/dL RDW Std Deviation 45.2 (36.4-46.3) fL RDW Coeff of Ana 13.2 (11.5-14.5) % Plt Count 258 (130-400) K/uL MPV 9.3 L (9.4-12.4) fL Immature Gran % (Auto) 0.2 % Neut % (Auto) 54.5 % Lymph % (Auto) 32.3 % [place] % (Auto) 9.7 % Eos % (Auto) 2.6 % Baso % (Auto) 0.7 % Neut # (Auto) 2.35 (1.40-6.50) K/uL Lymph # (Auto) 1.39 (1.20-3.40) K/uL [place] # (Auto) 0.42 (0.11-0.59) K/uL Eos # (Auto) 0.11 (0.00-0.50) K/uL Baso # (Auto) 0.03 (0.00-0.20) K/uL Immature Gran # (Auto) 0.01 (0.01-0.20) K/uL PT 10.3 (9.0-12.0) Seconds INR 0.9 (0.9-1.1) APTT 25 (21-31) Seconds PTT Ratio 0.9 POC Sodium 139 (135-144) mmol/L Sodium 137 (136-145) mmol/L POC Potassium 4.0 (3.3-5.0) mmol/L Potassium 4.0 (3.5-5.1) mmol/L POC Chloride 103 (101-112) mmol/L Chloride 106 (98-107) mmol/L Carbon Dioxide 24 (21-32) mmol/L POC Total CO2 22 L (24-31) mmol/L Anion Gap 7 (3-11) POC Anion Gap 19.0 (16-25) mmol/L POC BUN 16 (7-18) mg/dl BUN 16 (6-23) mg/dl Creatinine 1.01 (0.6-1.2) mg/dl POC Creatinine 1.0 (0.6-1.3) mg/dl Est Cr Clr Drug Dosing 54.0 ml/min eGFR 60.64 BUN/Creatinine Ratio 15.8 (10-20) Glucose 108 H (70-99(Fasting)) mg/dl POC Glucose (other) 111 H (70-99) mg/dl Calcium 8.9 (8.6-10.3) mg/dl POC Ioniz Calcium [place] 1.18 (1.12-1.32) mmol/l Magnesium 1.9 (1.7-2.4) mg/dl Total Bilirubin 0.3 (0.2-1.0) mg/dl AST 16 (13-39) U/L ALT 19 (7-52) U/L Alkaline Phosphatase 102 (34-104) U/L Troponin I High Sens 3.4 (0-14) pg/ml Total Protein 7.1 (6.0-8.3) gm/dl Albumin 4.3 (3.4-5.0) gm/dl Globulin 2.8 (2.5-4.0) gm/dl Albumin/Globulin Ratio 1.5 (0.9-2) TSH 1.949 (0.300-4.500) uIu/ml Urine Color Yellow Urine Appearance Clear (Clear) Urine pH 6.0 (4.5-7.5) Ur Specific [place] 1.020 (1.000-1.030) Urine Protein Negative (Negative) Urine Glucose (UA) Negative (Negative) Urine Ketones Negative (Negative) Urine Blood Negative (Negative) Urine Nitrite Negative (Negative) Urine Bilirubin Negative (Negative) Urine Urobilinogen Negative (Negative) Ur Leukocyte Esterase 1+ H (Negative) Urine WBC (Auto) 0-5 (0-5) /hpf Urine RBC (Auto) 0-2 (0-2) /hpf U Hyaline Cast (Auto) 0-2 (0-2) /lpf U Epithel Cells (Auto) 0-2 (0-2) /hpf Urine Bacteria (Auto) None Seen (None Seen) Administered Medications Discontinued Medications Aspirin (Aspirin 81 Mg Chew) 324 mg PO NOW STA Stop: 03/12/25 15:53 Last Admin: 03/12/25 16:09 Dose: 324 mg Documented By: STEFAN Diphenhydramine HCl (Diphenhydramine 50 Mg/Ml Vial) 25 mg IV NOW STA Stop: 03/12/25 12:12 Last Admin: 03/12/25 12:43 Dose: 25 mg Documented By: STEFAN Sodium Chloride (Nss) 1,000 mls @ 999 mls/hr IV .Q1H1M ONE Stop: 03/12/25 13:11 Last Infusion: 03/12/25 13:40 Dose: Infused Documented By: Admin: 03/12/25 12:39 Dose: 999 mls/hr Documented By: STEFAN Prochlorperazine 10 mg/ (Syringe) 10 mls @ 5 mls/min IV ONE ONE Stop: 03/12/25 12:12 Last Admin: 03/12/25 12:44 Dose: Not Given Documented By: STEFAN Acetaminophen (Ofirmev) 1,000 mg in 100 mls @ 400 mls/hr IV NOW STA Stop: 03/12/25 12:25 Last Infusion: 03/12/25 12:58 Dose: Infused Documented By: Admin: 03/12/25 12:43 Dose: 400 mls/hr Documented By: STEFAN Magnesium Sulfate/Dextrose (Magnesium Sulfate / D5w) 1 gm in 100 mls @ 100 mls/hr IV NOW ONE Stop: 03/12/25 17:27 Last Admin: 03/12/25 18:22 Dose: 100 mls/hr Documented By: JOSHUA Ioversol (Optiray 320 125ml) 120 ml IV ONCE ONE Stop: 03/12/25 11:39 Last Admin: 03/12/25 11:38 Dose: 120 ml Documented By: STEPHANIE Ketorolac Tromethamine (Ketorolac Tromethamine 15 Mg/Ml Vial) 10 mg IV NOW ONE Stop: 03/12/25 12:12 Last Admin: 03/12/25 12:41 Dose: 10 mg Documented By: STEFAN Ondansetron HCl (Ondansetron Inj 2 Mg/Ml 2 Ml Vial) 4 mg IV NOW STA Stop: 03/12/25 12:12 Last Admin: 03/12/25 12:39 Dose: 4 mg Documented By: STEFAN Prochlorperazine (Prochlorperazine 5 Mg/Ml 2 Ml Vial) Confirm Administered Dose 10 mg .ROUTE .STK-MED ONE Stop: 03/12/25 12:18 Last Admin: 03/12/25 12:40 Dose: 10 mg Documented By: STEFAN Imaging Data Radiologist's Impression: Chest X-Ray 03/12/25 11:19 XR chest 1V portable HISTORY: 69 years-old Female Weakness COMPARISON: 08/01/2024 TECHNIQUE: AP view of the chest FINDINGS: Cardiac mediastinal and hilar silhouettes are within normal limits. No pneumothorax, pleural effusion or overt pulmonary edema. Chronic interstitial coarsening. Bones appear grossly intact. IMPRESSION: No acute process. ACT 112: Negative or not required by law. The above report was generated using voice recognition software. It may contain grammatical, syntax or spelling errors. Electronically signed by: Fredy Knight M.D. 03/12/2025 12:[address] 03/12/25 11:34 CT angio head w con, CT head/brain wo con CLINICAL HISTORY: 69 years-old Female with neuro deficit, acute stroke suspected. Acute strokelike symptoms with headache and right-sided weakness. History of multifocal stenoses within the posterior cerebral arteries. COMPARISON STUDY: Head CT and CTA head 08/01/2024 TECHNIQUE: Unenhanced axial CT scan of the brain is performed. Subsequently, following the IV administration of 120 cc of Optiray, CT angiogram of the brain was performed from the skull base to the vertex. Images are reviewed in the axial, sagittal, and coronal planes. 3-D MIPS images are created and assessed. IV contrast was administered without complication. All measurements were obtained according to NASCET criteria. A dose lowering technique was utilized adhering to the principles of ALARA. CT DOSE: 1057.7 mGy.cm FINDINGS: CT BRAIN: There is no acute intracranial hemorrhage, midline shift, hydrocephalus, intracranial mass, territorial ischemia or abnormal extra-axial collections. No abnormal intra-axial or extra-axial enhancement. Involutional changes with probable chronic microvascular ischemic disease. Prior bilateral repair. Mastoid air cells and middle ear cavities are clear. No calvarial fracture. Paranasal sinuses are clear. CT ANGIOGRAM OF THE BRAIN: The imaged bilateral internal carotid arteries are patent. The bilateral anterior and middle cerebral arteries are also patent. The right vertebral artery is dominant. Patent basilar artery. Moderate to severe multifocal stenoses again noted within the posterior cerebral arteries. No arterial occlusion identified. No abnormal intracranial enhancement. Dural sinuses appear patent. IMPRESSION: 1. No acute intracranial abnormality. 2. Multifocal moderate to severe high-grade stenoses again noted throughout the posterior cerebral arteries. 3. Otherwise unremarkable CTA of the head. ACT 112: Negative or not required by law. The above report was generated using voice recognition software. It may contain grammatical, syntax or spelling errors. Electronically signed by: Fredy Knight M.D. 03/12/2025 12:06 PM Head CTA 03/12/25 11:34 CT angio head w con, CT head/brain wo con CLINICAL HISTORY: 69 years-old Female with neuro deficit, acute stroke suspected. Acute strokelike symptoms with headache and right-sided weakness. History of multifocal stenoses within the posterior cerebral arteries. COMPARISON STUDY: Head CT and CTA head 08/01/2024 TECHNIQUE: Unenhanced axial CT scan of the brain is performed. Subsequently, following the IV administration of 120 cc of Optiray, CT angiogram of the brain was performed from the skull base to the vertex. Images are reviewed in the axial, sagittal, and coronal planes. 3-D MIPS images are created and assessed. IV contrast was administered without complication. All measurements were obtained according to NASCET criteria. A dose lowering technique was utilized adhering to the principles of ALARA. CT DOSE: 1057.7 mGy.cm FINDINGS: CT BRAIN: There is no acute intracranial hemorrhage, midline shift, hydrocephalus, intracranial mass, territorial ischemia or abnormal extra-axial collections. No abnormal intra-axial or extra-axial enhancement. Involutional changes with probable chronic microvascular ischemic disease. Prior bilateral repair. Mastoid air cells and middle ear cavities are clear. No calvarial fracture. Paranasal sinuses are clear. CT ANGIOGRAM OF THE BRAIN: The imaged bilateral internal carotid arteries are patent. The bilateral anterior and middle cerebral arteries are also patent. The right vertebral artery is dominant. Patent basilar artery. Moderate to severe multifocal stenoses again noted within the posterior cerebral arteries. No arterial occlusion identified. No abnormal intracranial enhancement. Dural sinuses appear patent. IMPRESSION: 1. No acute intracranial abnormality. 2. Multifocal moderate to severe high-grade stenoses again noted throughout the posterior cerebral arteries. 3. Otherwise unremarkable CTA of the head. ACT 112: Negative or not required by law. The above report was generated using voice recognition software. It may contain grammatical, syntax or spelling errors. Electronically signed by: Fredy Knight M.D. 03/12/2025 12:06 PM Neck CTA 03/12/25 11:34 CT ANGIOGRAPHY OF THE NECK WITH CONTRAST CLINICAL HISTORY: neuro deficit, acute stroke suspected. Headache. Right-sided weakness. Confusion. COMPARISON STUDY: CTA of the Neck August 01, 2024 Technique: CT angiography of the carotid and vertebral arteries was obtained using Optiray and 3D reconstruction on an independent workstation. NASCET criteria was utilized. Automated exposure control was utilized for the study. A dose lowering technique was utilized adhering to the principles of ALARA. Findings: Visualized portions of the lung apices are unremarkable. There is no cervical lymphadenopathy. There are no cervical spine fractures. Mild stenosis at the origin of the left subclavian artery is unchanged. The bilateral vertebral arteries are patent. The right vertebral artery is dominant. No aneurysm or dissection within the neck. There is mild plaque within the proximal bilateral internal carotid arteries. This does not result in significant stenosis. IMPRESSION: 1. Mild atherosclerotic plaque within the proximal bilateral internal carotid arteries without significant stenosis. 2. No change in mild stenosis at the origin of the left subclavian artery. 3. No dissection or aneurysm within the neck. ACT 112: Negative or not required by law. Electronically signed by: Nathaniel Hamilton M.D. 03/12/2025 12:02 PM Brain MRI 03/12/25 16:02 MRI of the brain performed without IV contrast History: Neurodeficit Comparison: 08/01/2024 Technique: Sagittal T1-weighted and axial T2-weighted, T2/FLAIR and diffusion-weighted with ADC map images of the brain were obtained without IV contrast. Findings: No evidence for intracranial mass lesion, mass-effect, midline shift, or abnormal extra-axial fluid collection. There is moderate to marked generalized cerebral atrophy, which appears somewhat parietal lobe predominant. Moderate scattered high signal intensity abnormality throughout the white matter on T2/FLAIR, is consistent with chronic small vessel ischemic disease. No abnormally reduced diffusion or evidence for acute infarct. Normal intravascular flow voids. Bilateral pseudophakia. Impression: No acute intracranial pathology Electronically signed by Rick Llanos 03-12-2025 6:18 PM Discharge Plan Visit Data Chief Complaint: TIA Symptoms ED Provider: Urbano Paula Discharge Problem: Numbness on right side, History of CVA (cerebrovascular accident), Headache, Stroke-like symptoms Patient Disposition: Admitted As Inpatient Condition: Serious Discharge Instructions Interventions: ED Discharge Assessment Last Done: 03/12/25 17:46 Discharge Problem: Headache Qualifiers: Headache type: unspecified Headache chronicity pattern: acute headache I ntractability: intractable Qualified Code(s): R51.9 - Headache, unspecified
[2025-03-12 12:06] LABS: INR 0.9 (0.9-1.1); Partial Thromboplastin Ratio 0.9; Partial Thromboplastin Time 25 Seconds (21-31); Prothrombin Time 10.3 Seconds (9.0-12.0)
--- NOTE | 2025-03-12 12:07 | CT Scan Report ---
CT angio head w con, CT head/brain wo con CLINICAL HISTORY: 69 years-old Female with neuro deficit, acute stroke suspected. Acute strokelike symptoms with headache and right-sided weakness. History of multifocal stenoses within the posterior cerebral arteries. COMPARISON STUDY: Head CT and CTA head 08/01/2024 TECHNIQUE: Unenhanced axial CT scan of the brain is performed. Subsequently, following the IV adminis tration of 120 cc of Optiray, CT angiogram of the brain was performed from the skull base to the vert ex. Images are reviewed in the axial, sagittal, and coronal planes. 3-D MIPS images are created and a ssessed. IV contrast was administered without complication. All measurements were obtained according to NASCET criteria. A dose lowering technique was utilized adhering to the principles of ALARA. CT DOSE: 1057.7 mGy.cm FINDINGS: CT BRAIN: There is no acute intracranial hemorrhage, midline shift, hydrocephalus, intracranial mass, territori al ischemia or abnormal extra-axial collections. No abnormal intra-axial or extra-axial enhancement. Involutional changes with probable chronic microvascular ischemic disease. Prior bilateral repair. M astoid air cells and middle ear cavities are clear. No calvarial fracture. Paranasal sinuses are julieta r. CT ANGIOGRAM OF THE BRAIN: The imaged bilateral internal carotid arteries are patent. The bilateral anterior and middle cerebral arteries are also patent. The right vertebral artery is dominant. Patent basilar artery. Moderate to severe multifocal stenoses again noted within the posterior cerebral arteries. No arterial occlusion identified. No abnormal intracranial enhancement. Dural sinuses appear patent. IMPRESSION: 1. No acute intracranial abnormality. 2. Multifocal moderate to severe high-grade stenoses again noted throughout the posterior cerebral ar teries. 3. Otherwise unremarkable CTA of the head. ACT 112: Negative or not required by law. The above report was generated using voice recognition software. It may contain grammatical, syntax o r spelling errors. Electronically signed by: Fredy Knight M.D. 03/12/2025 12:06 PM
[2025-03-12 12:10] LABS: Albumin Level 4.3 gm/dl (3.4-5.0); Bilirubin,Total 0.3 mg/dl (0.2-1.0); Calcium 8.9 mg/dl (8.6-10.3); Magnesium 1.9 mg/dl (1.7-2.4)
[2025-03-12 12:16] LABS: Albumin Globulin Ratio 1.5 (0.9-2); BUN Creatinine Ratio 15.8 (10-20); Globulin 2.8 gm/dl (2.5-4.0); Total Protein 7.1 gm/dl (6.0-8.3)
[2025-03-12 12:17] LABS: Troponin I High Sensitivity 3.4 pg/ml (0-14)
[2025-03-12 12:26] LABS: Thyroid Stimulating Hormone 1.949 uIu/ml (0.300-4.500)
--- NOTE | 2025-03-12 12:38 | XRay Report ---
XR chest 1V portable HISTORY: 69 years-old Female Weakness COMPARISON: 08/01/2024 TECHNIQUE: AP view of the chest FINDINGS: Cardiac mediastinal and hilar silhouettes are within normal limits. No pneumothorax, pleural effusion or overt pulmonary edema. Chronic interstitial coarsening. Bones appear grossly intact. IMPRESSION: No acute process. ACT 112: Negative or not required by law. The above report was generated using voice recognition software. It may contain grammatical, syntax o r spelling errors. Electronically signed by: Fredy Knight M.D. 03/12/2025 12:36 PM
[2025-03-12] MEDS: ONDANSETRON INJ 2 MG/ML 2 ML VIAL IV STA (12:39)
[2025-03-12] MEDS: SODIUM CHLORIDE 0.9% 1,000 ML IV ONE (12:39)
[2025-03-12] MEDS: PROCHLORPERAZINE 5 MG/ML 2 ML VIAL ONE (12:40)
[2025-03-12] MEDS: KETOROLAC TROMETHAMINE 15 MG/ML VIAL IV ONE (12:41)
[2025-03-12] MEDS: diphenhydrAMINE 50 MG/ML VIAL IV STA (12:43)
[2025-03-12] MEDS: ACETAMINOPHEN 1,000 MG/100 ML VIAL IV STA (12:43)
[2025-03-12] MEDS: PROCHLORPERAZINE 10 MG in SYRINGE 8 ML IV ONE (12:44)
[2025-03-12 13:15] LABS: Appearance Urine Clear (Clear); Bacteria Urine Automated None Seen (None Seen); Bilirubin Urine Negative (Negative); Blood Urine Negative (Negative); Cast Urine Automated 0-2 /lpf (0-2); Color Urine Yellow; Epithelial Cell Urine Auto 0-2 /hpf (0-2); Glucose Urine UA Negative (Negative); Ketones Urine Negative (Negative); Leukocyte Esterase Urine 1+ (Negative); Nitrite Urine Negative (Negative); Protein Urine Negative (Negative); RBC Urine Automated 0-2 /hpf (0-2); Urobilinogen Urine Negative (Negative); WBC Urine Automated 0-5 /hpf (0-5)
--- NOTE | 2025-03-12 15:42 | History & Physical Report ---
Date of Service March 12, 2025 Assessment & Plan (1) Stroke-like symptoms: Plan: 69yo F with a PMHx of complex migraine, CVA, TIA who presents with RUE/RLE/R facial deficits suspicious for CVA for complex migraine. Headache, CVA evaluation With known extensive CVD/right basal ganglier lacunar infarct and hx chronic migraine symptoms. At baseline has some chronic gait dysfunction. Patient has a longstanding history of complicated migraine which may be the ca use of her symptoms however on exam she has significant right upper and right lower extremity asymmetric weakness with dysmetria and over reach which has never changed with migraine before. Given the symptoms, will stroke risk factors will add aspirin full dose and MRI to complete CV evaluation EKG: Normal sinus rhythm, no territorial ischemia 4.5-hour onset of right arm/face/leg numbness and the inability to drink coffee without drooling from the right side of her mouth 12 days of preceding headache CTAhead: No acute finding. 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 Mild proximal bilateral internal carotid artery plaque without significant stenosis CThead: No acute finding Chest x-ray: No acute finding MRI pending Risk of hypertension x 24 hours or until MRI is able to R/O acute CVA Statin intolerant. Repeat lipid panel pending. 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 She is statin intolerant after multiple trials red rice yeast that she does tolerate is not sufficient for appropriate risk reduction for her. Follow-up for Repatha/PCSK9 as outpatient Full dose aspirin ordered on admission. Long-term antiplatelet recommendations pending MRI results, if agitation is felt to be due to stroke rather than migraine then should have DAPT for at least 3 weeks. PT/OT pending Permissive hypertension x 24 hours unless CVA is ruled out on MRI. Lisinopril held. Labetalol as needed for SBP greater than 220/110. If CVA is ruled out then resume lisinopril and treat to inpatient goal of systolic less than 180. BP 144/79 on admission Complicated migraine DDx includes complicated migraine Continue amitriptyline 50 mg p.o. at bedtime Continue verapamil ER Tylenol, Toradol multimodal breakthrough pain control Ophthalmology evaluation 03/05/2025: Was evaluated for intense retro-orbital left eye pain. Right visual acuity by ophthalmology 20/40 with normal intraocular pressure. Unchanged eye exam and was suspected to be due to migraine at the time. DHE and triptans contraindicated due to complex migraine and vascular disease If MRI is normal then we will treat with dexamethasone 10 mg x 1 followed by 6 mg daily, continue Tylenol/Toradol/ramipril/amitriptyline. If unable to obtain clinical improvement with all of these then consult neurology at that point --> ?lidocaine versus ketamine infusion as she has had greater than 72 hours/status migrainosus Hypothyroidism Continue Synthroid History of chest pain Stress echo 03/2024 without acute findings EKG without acute ischemic changes on admission Troponin 3.4 on admission Follow clinically History of parkinsonism Did not tolerate Sinemet, taken off pramipexole due to hyponatremia in the past. Follow-up neurology evaluation inconsistent with this. Chest discomfort Patient has some mild right chest wall discomfort directly reproducible on palpation consistent with MSK strain. Denies any injuries to the area. She has no other chest pain, no pleuritic/inspiratory pain, no substernal pain and a normal troponin and normal EKG. No evidence of anginal symptoms. DVT prophylaxis: SCDs, chemical prophylaxis tentatively afternoon 03/13 pending completion of stroke evaluation. If CVA/large territory infarct is seen then need to reevaluate risk/benefit of chemical prophylaxis Diet: Pending swallow eval. Heart healthy once passed CODE STATUS: DNR/DNI Disposition: M/T (2) Hypertension: (3) Migraine: History of Present Illness Primary Care Provider: BRIEN Chahal Charley is a 69-year-old female with past medical history of parkinsonism, frequent falls, anxiety, IBS, TIA, hypothyroidism, hypertension, and complex migraine who presented for stroke evaluation. mbolysis She was evaluated as a stroke alert Per ER sign out: - Hx of complex migraine with neurologic symptoms - Has has status migranosis (migraine x12 days) - Home migrane medicnes werent helping - Work up this morning 7am and had development of R arm, R face, R leg numbness. +dysarhtria and drooling from R face. - RUE/RLE testing in ER with cerebellar findings. Slight drift, but very poor coordination. +slurring speech on ER exam - CT series with chronic findings, naf - MRI pending - Dr. Zand telestroke --> Unclear if stroke vs complex migraine. Outside of TNKase window. +Migraine cocktail. Follow for a few hours. If improving dc as complex migraine, if not --> complete stroke workup. Passed swallow trinity. Seen at the bedside. She reports that she has had several days of a migraine similar to her prior migraine which has not resolved with her normal home treatments. She was not overly concerned about this until this morning when she woke up and had new right face, right arm, right leg numbness and tingling and was unable to drink coffee because this dribbled out of the right side of her mouth. She has since noticed that while her facial sensation has improved and she is able to puff out her cheeks she has difficulty using her [employer]) cell phone wit h her dominant right hand. She is weak in the right arm and is not able to lift this past the shoulder. Right leg also feels weak. The symptoms have been present since she woke up around 78:00 in the morning. She has not taken any aspirin. She reports she takes Plavix and did take this this morning. She does not think she takes blood thinners any further. She has had some tenderness to palpation of her chest otherwise denies chest pain. No shortness of breath. No fevers chills or sweats. No cough. No dysuria. Medical History: Reviewed Medications: Reviewed Surgical History: Reviewed Family history: Reviewed Allergies: Reviewed Social History: No tobacco. No ETOH. Code Status: Surrogate LITO HodgeAlbertina seth "shes like a daughter to me and knows me", as a backup would want her son Fredy called. DNR/DNI Allergies Allergy/AdvReac Type Severity Reaction Status Date / Time methylprednisolone AdvReac Severe Psychosis Verified 12/06/24 13:27 ciprofloxacin [From Cipro] AdvReac Intermediate nausea Verified 12/06/24 13:27 erythromycin base AdvReac Intermediate VOMITTING Verified 12/06/24 13:27 Macrolide Antibiotics AdvReac Intermediate STOMACH Verified 12/06/24 13:27 UPSET Home Medications Medication Instructions Recorded Confirmed Type cyanocobalamin (vitamin B-12) 1,000 mcg sublingual QAM 05/03/20 03/12/25 History 1,000 mcg sublingual lozenge latanoprost 0.005 % eye drops 1 drp ophthalmic (eye) HS 10/22/21 03/12/25 History peg 400-propylene glycol 0.4 %-0.3 1 drp OPB UD 06/15/23 03/12/25 History % eye drops (Systane (propylene glycol)) fluticasone propionate 50 1 spray intranasal QAM PRN Allergy 08/23/23 03/12/25 Rx mcg/actuation nasal Symptoms #16 grams spray,suspension lidocaine 5 % topical patch 1 patch transdermal QAM #30 ea 03/27/24 03/12/25 Rx hospital bed #1 ea 03/30/24 12/06/24 Rx potassium chloride 10 mEq 10 meq PO QAM #30 tabs 04/26/24 03/12/25 Rx tablet,extended release (Klor-Con) sodium chloride 1,000 mg soluble 1,000 mg PO BID #60 tabs 05/30/24 03/12/25 Rx tablet lisinopril 10 mg tablet 10 mg PO QAM #90 tabs 06/28/24 03/12/25 Rx diclofenac sodium 1 % topical gel 2 g EXT QID PRN Pain 08/01/24 03/12/25 History (Voltaren Arthritis Pain) levothyroxine 75 mcg capsule 75 mcg PO DAILY #90 caps 08/23/24 03/12/25 Rx valacyclovir 500 mg tablet 500 mg PO HS #90 tabs 08/23/24 03/12/25 Rx mirtazapine 15 mg tablet (Remeron) 15 mg PO DAILY #30 tabs 09/21/24 03/12/25 Rx pantoprazole 40 mg tablet,delayed 40 mg PO BID #180 tabs 10/17/24 03/12/25 Rx release clopidogrel 75 mg tablet 75 mg PO DAILY #90 tabs 11/13/24 03/12/25 Rx tamsulosin 0.4 mg capsule 0.4 mg PO HS #90 caps 11/13/24 03/12/25 Rx venlafaxine 150 mg 150 mg PO QAM #90 caps 11/13/24 03/12/25 Rx capsule,extended release 24 hr venlafaxine 75 mg capsule,extended 75 mg PO HS #90 caps 11/13/24 03/12/25 Rx release 24 hr amitriptyline 50 mg tablet 50 mg PO HS 30 days #30 tabs 12/06/24 03/12/25 Rx verapamil 240 mg 24 hr 240 mg PO HS 30 days #30 caps 12/06/24 03/12/25 Rx capsule,extended release buspirone 10 mg tablet 20 mg (2 x 10 mg) PO TID #180 tabs 12/12/24 03/12/25 Rx clonazepam 0.5 mg tablet 0.5 mg PO TID #90 tabs 03/05/25 03/12/25 Rx zmyuqqldky-elobyihxncqes-hzavvrsj 1 - 2 tab PO .Q4-5H PRN pain #20 03/11/25 03/12/25 Rx 50 mg-325 mg-40 mg tablet tabs ondansetron HCl 4 mg tablet 4 mg PO TID PRN nausea and 03/11/25 03/12/25 Rx vomiting #30 tabs tobramycin 0.3 % eye drops 1 drp ophthalmic (eye) UD 03/12/25 03/12/25 History Past Med/Surg History Problem List (Updated 03/12/25 @ 07:06 by BRIEN Chahal) H/O: stroke Insomnia 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 no active shingles currently Visual disturbance (Acute) Osteoarthritis of left knee Stroke migraine stroke (unsure of date -- within the last 7 years (since 2014) -> deficits include mild/minor dementia, finding right words, memory loss, right arm and leg weakness. [facility]. Complicated migraine Numbness (Acute) Statin intolerance Hyponatremia (Acute) Weakness (Acute) Falls (Acute) Tear of medial meniscus of right knee Osteoarthritis of right knee Cerebrovascular disease Pre-diabetes Hyperlipidemia (Chronic) Patient has hx of intolerance to statin, has tried statins several times even with Co Q 10, and no longer dillan zetia either Headache, hemiplegic migraine (Chronic) Mitral valve disorder (Acute 09/20/11) Neuropathic pain Cystocele with rectocele 2010 Ataxia Complicated migraine with status migrainosus Constipation Gait disorder Parkinsonism (Acute) Restless legs syndrome (Chronic 09/20/11) Irritable bowel syndrome (Chronic 09/20/11) Depression with anxiety (Chronic) Hypothyroidism (Chronic) Memory impairment (Acute) mild - alert and oriented x3 Palpitations "irreegular heart beat" GERD (gastroesophageal reflux disease) Hypertension Hx of venous thrombosis and embolism (09/20/11) unsure of exact date. related to HRT. placed on anticoagulant since. Peripheral edema (Chronic) Osteoarthritis of hands, bilateral (Chronic) Esophageal dysmotility (Chronic) Medical History Anemia Glaucoma Vertigo Nausea and vomiting after administration of anesthetic agent On anticoagulant therapy Stroke Transient ischemic attack (TIA) Parkinson disease History of COVID-19 History of anesthesia reaction Migraine Old myocardial infarct (09/20/11) Cervical radiculopathy Arthralgia of multiple sites Anemia Acid reflux Surgical History Hx of cataract extraction History of cardiac cath History of esophagogastroduodenoscopy (EGD) History of laparoscopy History of colonoscopy H/O varicose vein ligation and stripping S/P total abdominal hysterectomy H/O rectocele repair H/O ovarian cystectomy History of appendectomy Family History Mother Myocardial infarction Stroke Heart disease Father Stroke Other No family history of adverse response to anesthesia Denies family history of Ovarian cancer Prostate cancer Breast cancer Colorectal cancer Social History Smoking Status: Never smoker Second Hand Exposure: No; Do You Dip or Chew Tobacco: No; Hx Alcohol Use: No Hx Substance Use: No Preferred Language: Mauritian Communication Ability: Effective Visual Impairment: Limited Hearing Ability: Use of Hearing Aid Medicare Insurance Specialist Required: No Beliefs That Will Affect Care: Protestant marital status: / Current Living Situation: Alone current occupational status: retired 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 NAD. Cooperative. Pulm: CTAB A&P. -wheezes, -rales, -rhonchi. Symmetrical chest rise. No increased work of breathing. No respiratory distress. Cardiac: RRR, -mrg. Radial pulses intact and symmetrical. Abdominal: Nontender, nondistended, soft. BS present. CRANIAL NERVES: II: Pupils equal and reactive, no relative afferent pupillary defect, no VF cuts III, IV, : EOM intact, no gaze preference or deviation, no nystagmus. V: normal sensation in V1, V2, and V3 segments bilaterally VII: Slight right-sided facial asymmetry which corrects on smile. No nasolabial fold flattening. Cheek puff normal VIII: normal hearing to speech IX, X: normal palatal elevation, no uvular deviation XI: 5/5 head turn and 5/5 shoulder shrug bilaterally XII: midline tongue protrusion MOTOR: RUE: Patient is only able to flex the shoulder to approximately 90 degrees due to weakness. Right honey blender strength, elbow flexion/extension, shoulder flexion, external rotation/internal rotation are all diminished and 4/minus/5 compared to the right. On finger-nose testing with the right hand she does have significant dysmetria/over reach with the right hand. No abnormalities on the left hand. Sensation to soft touch in the right hand is intact but qualitatively different compared to the left per patient LUE: 5/5 Shoulder internal rotation, external rotation, flexion, extension, abduction, adduction 5/5 Elbow flexion/extension, wrist flexi on/extension 5/5 honey blender strength, finger flexion/extens ion, interosseus RLE: 4/5 hip flexion, ankle dorsiflexion/plan tarflexion. Sensation soft touch is grossly intact Mild dqvi-lc-qonv dysmetria on the right side. Left side weuo-pk-biqc testing normal LLE: 5/5 to hip flexion, knee flexion/extensi on, ankle dorsiflexion/plantarflexion Results & Data Results & Data Vital Signs (Past 12 Hours) Vital Signs Temp Pulse Pulse Resp BP BP Pulse Ox 03/12/25 14:00 70 16 144/79 H 98 03/12/25 12:05 71 03/12/25 12:00 151/84 H 03/12/25 12:00 151/84 H 03/12/25 12:00 64 30 H 97 03/12/25 11:21 36.5 C 65 20 151/84 H 95 O2 Del Method 03/12/25 14:00 Room Air 03/12/25 12:05 03/12/25 12:00 03/12/25 12:00 03/12/25 12:00 03/12/25 11:21 PG Care Time/CCT Total # of Minutes Spent Total Time Spent with Patient: Total time spent is greater than 50% in coordination of care (as documented) at patient's floor/unit and/or counseling patient: Coding Level of Care Code 08114 INT INP/OBS CARE 3/75MIN Diagnoses Stroke-like symptoms R29.90 Hypertension I10 Migraine G43.909
[2025-03-12] MEDS: ASPIRIN 81 MG CHEW PO STA (16:09)
[2025-03-12] MEDS ORDERED: PHARMACIST DISCHARGE MED REC CONSULT PRN (16:18)
[2025-03-12] MEDS ORDERED: LABETALOL HCL IV 5 MG/ML 20ML IV PRN (16:25)
[2025-03-12] MEDS ORDERED: ACETAMINOPHEN 325 MG TAB PO PRN (16:28)
[2025-03-12] MEDS ORDERED: PROCHLORPERAZINE 5 MG/ML 2 ML VIAL IV PRN (16:28)
--- NOTE | 2025-03-12 18:18 | Magnetic Resonance Report ---
MRI of the brain performed without IV contrast History: Neurodeficit Comparison: 08/01/2024 Technique: Sagittal T1-weighted and axial T2-weighted, T2/FLAIR and diffusion-weighted with ADC map images of the brain were obtained without IV contrast. Findings: No evidence for intracranial mass lesion, mass-effect, midline shift, or abnormal extra-axial fluid collection. There is moderate to marked generalized cerebral atrophy, which appears somewhat parietal lobe predominant. Moderate scattered high signal intensity abnormality throughout the white matter on T2/FLAIR, is consistent with chronic small vessel ischemic disease. No abnormally reduced diffusion or evidence for acute infarct. Normal intravascular flow voids. Bilateral pseudophakia. Impression: No acute intracranial pathology Electronically signed by Rick Llanos 03-12-2025 6:18 PM
[2025-03-12] MEDS: MAGNESIUM SULFATE / D5W 1 GM/100 ML BAG IV ONE (18:22)
[2025-03-12] MEDS ORDERED: DEXAMETHASONE SOD INJ 4 MG/ML VIAL IV STA (18:32)
[2025-03-12] MEDS: dexAMETHasone 10 MG in SYRINGE 0 ML IV ONE (19:58)
[2025-03-12] MEDS: TOBRAMYCIN SULF 0.3% OP SOLN 5 ML BTL OP SCH (20:50)
[2025-03-12] MEDS: LATANOPROST 0.005% OP SOLN 2.5 ML BTL OP SCH (20:50)
[2025-03-12] MEDS: VERAPAMIL HCL 240 MG TABCR PO SCH (20:55)
[2025-03-12] MEDS: busPIRone 5 MG TAB PO SCH (20:56)
[2025-03-12] MEDS: AMITRIPTYLINE HCL 50 MG TAB PO SCH (20:56)
[2025-03-12] MEDS: SODIUM CHLORIDE 1 GM TABLET PO SCH (20:57)
[2025-03-12] MEDS: PANTOprazole 40 MG TAB PO SCH (20:57)
[2025-03-12] MEDS: TAMSULOSIN HCL 0.4 MG CAP PO SCH (20:58)
[2025-03-12] MEDS: VENLAFAXINE HCL XR 75 MG CAPXR PO SCH (20:58)
[2025-03-12] MEDS: clonazePAM 0.5 MG TAB PO SCH (21:01)
[2025-03-13] MEDS: LEVOTHYROXINE SODIUM 75 MCG TABLET PO SCH (05:44)
[2025-03-13 06:21] LABS: Basophils # (auto) 0.01 K/uL (0.00-0.20); Basophils % (auto) 0.3 %; Hematocrit (blood only) 33.1 % (37.0-47.0); Immature Granulocytes # (auto) 0.02 K/uL (0.01-0.20); Immature Granulocytes % (auto) 0.6 %; Lymphocytes # (auto) 0.57 K/uL (1.20-3.40); Lymphocytes % (auto) 16.8 %; Mean Corpuscular Hemoglobin 30.6 pg (25.0-34.0); Mean Corpuscular Hgb Conc 33.2 g/dL (32.0-36.0); Mean Corpuscular Volume 91.9 fL (80.0-100.0); Monocytes # (auto) 0.11 K/uL (0.11-0.59); Monocytes % (auto) 3.2 %; Neutrophils # (auto) 2.69 K/uL (1.40-6.50); Neutrophils % (auto) 79.1 %; Platelet Count 242 K/uL (130-400); RDW Coefficient of Variation 13.1 % (11.5-14.5); RDW Standard Deviation 44.6 fL (36.4-46.3)
[2025-03-13 06:36] LABS: BUN Creatinine Ratio 15.4 (10-20); Calcium 8.9 mg/dl (8.6-10.3); Creatinine Clr Calc Pharmacy 57.7 ml/min; Potassium 4.5 mmol/L (3.5-5.1)
[2025-03-13] MEDS: VENLAFAXINE HCL XR 150 MG CAPXR PO SCH (07:55)
[2025-03-13] MEDS: CLOPIDOGREL BISULFATE 75 MG TAB PO SCH (07:55)
[2025-03-13] MEDS: MIRTAZAPINE TAB 15 MG TAB PO SCH (07:56)
[2025-03-13] MEDS: BUTALBITAL/ACETAMIN/CAFFEINE TAB PO PRN ×2 (07:56→13:17)
[2025-03-13] MEDS: LIDOCAINE 5% 1 PATCH TD SCH (07:57)
[2025-03-13] MEDS: ONDANSETRON INJ 2 MG/ML 2 ML VIAL IV PRN (07:58)
[2025-03-13] MEDS: DICLOFENAC SOD 1% GEL 100 GM TUBE EXT PRN (07:58)
[2025-03-13] MEDS: POLYETHYLENE (MIRALAX) 17 GM PACK PO PRN (08:02)
[2025-03-13] MEDS: POTASSIUM CHLORIDE 10 MEQ TABCR PO SCH (08:02)
[2025-03-13 08:41] LABS: Estimated Average Glucose 128 mg/dl; Hemoglobin A1C 6.1 % (4.5-5.6)
[2025-03-13] MEDS ORDERED: ASPIRIN 81 MG ECTAB PO SCH (09:00)
[2025-03-13] MEDS: KETOROLAC TROMETHAMINE 15 MG/ML VIAL IV PRN (10:10)
--- NOTE | 2025-03-13 11:34 | Hospitalist Progress Note ---
Date of Service March 13, 2025 Assessment & Plan (1) Stroke-like symptoms: Plan: Headache, CVA evaluation With known extensive CVD/right basal ganglier lacunar infarct and hx chronic migraine symptoms. At baseline has some chronic gait dysfunction. Patient has a longstanding history of complicated migraine which may be the cause of her symptoms however on exam she has significant right upper and right lower extremity asymmetric weakness with dysmetria and over Continue amitriptyline 50 mg p.o. at bedtime Continue verapamil ER Tylenol, Toradol multimodal breakthrough pain control DHE and triptans contraindicated due to complex migraine and vascular disease dexamethasone 10 mg x 1 followed by 6 mg daily, - continue Fiorcet/Tylenol/Toradol/ramipril/amitriptyline. - MRI negative for acute pathology (2) Hypertension: (3) Migraine: Plan 69yo F with a PMHx of complex migraine, CVA, TIA who presents with RUE/RLE/R facial deficits suspicious for CVA for complex migraine. Admission and Anticipated Discharge Date Admission Date: March 12, 2025 Subjective Pt still complaining of headaches this am. Review of Systems Review of Systems: CONST: Negative for fever, body aches and chills. HENT: Negative for neck pain/stiffness, +headache, congestion, sore throat, swelling. EYES: Negative for discharge/pain or vision changes. RESP: Negative for cough/hemoptysis and shortness of breath. CV: Negative chest pain, difficulty breathing, palpitations. ABD: Negative pain, nausea, vomiting. : Negative increase frequency, dysuria, blood in urine or stool. MUSC: Negative for muscle aches, edema. SKIN: Negative rash, lesions/sores. NEURO: Negative headache, dizziness, weakness. Physical Exam Physical Exam: GENERAL APPEARANCE NAD, activity normal for age, well developed/ well nourished, no cyanosis, pallor, or diaphoresis. EYES lids/conjunctiva normal. EARS/NOSE/THROAT Mucous membranes moist, nares normal, lips/teeth normal uvula midline without oral pharyngeal erythema, exudate or swelling TMs normal bilaterally. No lymphangitis/lymphedema. HEAD/NECK normocephalic atraumatic, no facial trauma, neck is supple. RESPIRATORY respiratory effort normal, speaks in full sentences, no tripod position, no accessory muscle use. Lungs clear to auscultation without rhonchi, wheezes, rales CARDIAC Regular rate and rhythm, no edema. ABDOMINAL Soft, ND/NT. No evidence of fluid wave. No pulsatile masses on exam, rebound tenderness, Garcia sign or pain over Mcburney's point. MUSCLES/EXTREMITIES No abnormal range of motion, no swelling. SKIN Warm, pink and dry. No rashes, dermatoses, petechiae or lesions. NEUROLOGICAL Speech is clear and appropriate. Normal level of consciousness. Gait and coordination are normal. 5/5 strength in all extremities. PSYCH Normal mood and affect. Judgement/competence is appropriate Results & Data Results & Data Vital Signs (Past 12 Hours) Vital Signs Temp Pulse Resp BP Pulse Ox O2 Del Method 03/13/25 08:00 36.3 C L 64 16 124/73 94 Room Air 03/13/25 03:05 36.5 C 69 18 108/69 94 Room Air PG Care Time/CCT Total # of Minutes Spent Total Time Spent with Patient: Total time spent is greater than 50% in coordination of care (as documented) at patient's floor/unit and/or counseling patient: Coding Level of Care Code 00220 SUB INP/OBS CARE 2/35MIN Diagnoses Stroke-like symptoms R29.90 Hypertension I10 Migraine G43.909
[2025-03-13] MEDS: DIHYDROERGOTAMINE MESYLATE 1 MG/ML VIAL SQ ONE (11:55)
[2025-03-13] MEDS: dexAMETHasone 4 MG TAB PO SCH (13:16)
[2025-03-13] MEDS: ENOXAPARIN INJ 40 MG/0.4 ML SYR SQ SCH (13:24)
[2025-03-14 05:38] LABS: Basophils # (auto) 0.01 K/uL (0.00-0.20); Basophils % (auto) 0.1 %; Hematocrit (blood only) 30.2 % (37.0-47.0); Hemoglobin 10.4 g/dl (12.0-16.0); Immature Granulocytes # (auto) 0.06 K/uL (0.01-0.20); Immature Granulocytes % (auto) 0.8 %; Lymphocytes # (auto) 1.02 K/uL (1.20-3.40); Lymphocytes % (auto) 12.9 %; Mean Corpuscular Hemoglobin 31.2 pg (25.0-34.0); Mean Corpuscular Hgb Conc 34.4 g/dL (32.0-36.0); Mean Corpuscular Volume 90.7 fL (80.0-100.0); Mean Platelet Volume 9.3 fL (9.4-12.4); Monocytes # (auto) 0.53 K/uL (0.11-0.59); Monocytes % (auto) 6.7 %; Neutrophils # (auto) 6.26 K/uL (1.40-6.50); Neutrophils % (auto) 79.5 %; Platelet Count 230 K/uL (130-400); RDW Coefficient of Variation 13.1 % (11.5-14.5); Red Blood Count 3.33 M/uL (4.20-5.40); White Blood Count 7.88 K/ul (4.8-10.8)
[2025-03-14 05:52] LABS: BUN Creatinine Ratio 22.9 (10-20); Calcium 8.6 mg/dl (8.6-10.3); Potassium 4.9 mmol/L (3.5-5.1)
[2025-03-14] MEDS: ACETAMINOPHEN 325 MG TAB PO PRN (06:03)
--- NOTE | 2025-03-14 09:33 | Electrocardiogram Report ---
Test Reason : Blood Pressure : */* mmHG Vent. Rate : 67 BPM Atrial Rate : 67 BPM P-R Int : 164 ms QRS Dur : 82 ms QT Int : 416 ms P-R-T Axes : 45 6 67 degrees QTcB Int : 439 ms Normal sinus rhythm Normal ECG When compared with ECG of 01-Aug-2024 13:48, No significant change was found Confirmed by Paulino Tamayo ([id number]) on 03/14/2025 9:33:02 AM Referred By: Confirmed By: Paulino Tamayo
[2025-03-14] MEDS: FLUTICASONE PROPIONATE NA SPR 16 GM BTL PRN (10:08)
--- NOTE | 2025-03-14 11:36 | Hospitalist Progress Note ---
Date of Service March 14, 2025 Assessment & Plan (1) Stroke-like symptoms: Plan: Headache, CVA evaluation With known extensive CVD/right basal ganglier lacunar infarct and hx chronic migraine symptoms. At baseline has some chronic gait dysfunction. Patient has a longstanding history of complicated migraine which may be the cause of her symptoms however on exam she has significant right upper and right lower extremity asymmetric weakness with dysmetria and over Continue amitriptyline 50 mg p.o. at bedtime Continue verapamil ER Tylenol, Toradol multimodal breakthrough pain control DHE and triptans contraindicated due to complex migraine and vascular disease dexamethasone 10 mg x 1 followed by 6 mg daily, - continue Fiorcet/Tylenol/Toradol/ramipril/amitriptyline. - MRI negative for acute pathology (2) Hypertension: Plan: -Continue verapamil ER (3) Migraine: Plan 69yo F with a PMHx of complex migraine, CVA, TIA who presents with RUE/RLE/R facial deficits suspicious for CVA for complex migraine. Awaiting placement at SNF, pending authorization. Admission and Anticipated Discharge Date Admission Date: March 12, 2025 Subjective Pt states headache has improved since yesterday. Review of Systems Review of Systems: CONST: Negative for fever, body aches and chills. HENT: Negative for neck pain/stiffness, +headache, congestion, sore throat, swelling. EYES: Negative for discharge/pain or vision changes. RESP: Negative for cough/hemoptysis and shortness of breath. CV: Negative chest pain, difficulty breathing, palpitations. ABD: Negative pain, nausea, vomiting. : Negative increase frequency, dysuria, blood in urine or stool. MUSC: Negative for muscle aches, edema. SKIN: Negative rash, lesions/sores. NEURO: Negative headache, dizziness, weakness. Physical Exam Physical Exam: GENERAL APPEARANCE NAD, activity normal for age, well developed/ well nourished, no cyanosis, pallor, or diaphoresis. EYES lids/conjunctiva normal. EARS/NOSE/THROAT Mucous membranes moist, nares normal, lips/teeth normal uvula midline without oral pharyngeal erythema, exudate or swelling TMs normal bilaterally. No lymphangitis/lymphedema. HEAD/NECK normocephalic atraumatic, no facial trauma, neck is supple. RESPIRATORY respiratory effort normal, speaks in full sentences, no tripod position, no accessory muscle use. Lungs clear to auscultation without rhonchi, wheezes, rales CARDIAC Regular rate and rhythm, no edema. ABDOMINAL Soft, ND/NT. No evidence of fluid wave. No pulsatile masses on exam, rebound tenderness, Garcia sign or pain over Mcburney's point. MUSCLES/EXTREMITIES No abnormal range of motion, no swelling. SKIN Warm, pink and dry. No rashes, dermatoses, petechiae or lesions. NEUROLOGICAL Speech is clear and appropriate. Normal level of consciousness. Gait and coordination are normal. 5/5 strength in all extremities. PSYCH Normal mood and affect. Judgement/competence is appropriate Results & Data Results & Data Vital Signs (Past 12 Hours) Vital Signs Temp Pulse Pulse Resp BP Pulse Ox O2 Del Method 03/14/25 08:00 72 03/14/25 07:24 36.6 C 62 17 139/81 93 Room Air 03/14/25 02:36 36.5 C 69 18 114/60 93 Room Air PG Care Time/CCT Total # of Minutes Spent Total Time Spent with Patient: Total time spent is greater than 50% in coordination of care (as documented) at patient's floor/unit and/or counseling patient: Coding Level of Care Code 49679 SUB INP/OBS CARE 2/35MIN Diagnoses Stroke-like symptoms R29.90 Hypertension I10 Migraine G43.909
[2025-03-14] MEDS: MELATONIN 3 MG TAB PO PRN (20:36)
[2025-03-15 06:09] LABS: Basophils # (auto) 0.02 K/uL (0.00-0.20); Basophils % (auto) 0.3 %; Eosinophils # (auto) 0.01 K/uL (0.00-0.50); Eosinophils % (auto) 0.1 %; Hematocrit (blood only) 32.1 % (37.0-47.0); Hemoglobin 10.8 g/dl (12.0-16.0); Immature Granulocytes # (auto) 0.08 K/uL (0.01-0.20); Immature Granulocytes % (auto) 1.1 %; Lymphocytes # (auto) 1.65 K/uL (1.20-3.40); Lymphocytes % (auto) 21.7 %; Mean Corpuscular Hemoglobin 30.9 pg (25.0-34.0); Mean Corpuscular Hgb Conc 33.6 g/dL (32.0-36.0); Mean Corpuscular Volume 91.7 fL (80.0-100.0); Mean Platelet Volume 9.3 fL (9.4-12.4); Monocytes # (auto) 0.65 K/uL (0.11-0.59); Monocytes % (auto) 8.5 %; Neutrophils % (auto) 68.3 %; Platelet Count 245 K/uL (130-400); RDW Coefficient of Variation 13.4 % (11.5-14.5); RDW Standard Deviation 45.1 fL (36.4-46.3); White Blood Count 7.61 K/ul (4.8-10.8)
[2025-03-15 06:30] LABS: Calcium 8.7 mg/dl (8.6-10.3)
[2025-03-15 06:35] LABS: BUN Creatinine Ratio 23.2 (10-20); Creatinine Clr Calc Pharmacy 53.2 ml/min
[2025-03-15] MEDS: SIMETHICONE 80 MG CHEW PO PRN (09:34)
--- NOTE | 2025-03-15 09:58 | Hospitalist Progress Note ---
Date of Service March 15, 2025 Assessment & Plan (1) Stroke-like symptoms: Plan: Headache, CVA evaluation With known extensive CVD/right basal ganglier lacunar infarct and hx chronic migraine symptoms. At baseline has some chronic gait dysfunction. Patient has a longstanding history of complicated migraine which may be the cause of her symptoms however on exam she has significant right upper and right lower extremity asymmetric weakness with dysmetria and over Continue amitriptyline 50 mg p.o. at bedtime Continue verapamil ER Tylenol, Toradol multimodal breakthrough pain control DHE and triptans contraindicated due to complex migraine and vascular disease dexamethasone 10 mg x 1 followed by 6 mg daily, - continue Fiorcet/Tylenol/Toradol/ramipril/amitriptyline. - MRI negative for acute pathology (2) Hypertension: Plan: -Continue verapamil ER (3) Migraine: Plan 69yo F with a PMHx of complex migraine, CVA, TIA who presents with RUE/RLE/R facial deficits suspicious for CVA for complex migraine. Awaiting placement at SNF, pending authorization. Admission and Anticipated Discharge Date Admission Date: March 12, 2025 Subjective Pt feeling her headaches have significancy improved. Review of Systems Review of Systems: CONST: Negative for fever, body aches and chills. HENT: Negative for neck pain/stiffness, +headache, congestion, sore throat, swelling. EYES: Negative for discharge/pain or vision changes. RESP: Negative for cough/hemoptysis and shortness of breath. CV: Negative chest pain, difficulty breathing, palpitations. ABD: Negative pain, nausea, vomiting. : Negative increase frequency, dysuria, blood in urine or stool. MUSC: Negative for muscle aches, edema. SKIN: Negative rash, lesions/sores. NEURO: Negative headache, dizziness, weakness. Physical Exam Physical Exam: GENERAL APPEARANCE NAD, activity normal for age, well developed/ well nourished, no cyanosis, pallor, or diaphoresis. EYES lids/conjunctiva normal. EARS/NOSE/THROAT Mucous membranes moist, nares normal, lips/teeth normal uvula midline without oral pharyngeal erythema, exudate or swelling TMs normal bilaterally. No lymphangitis/lymphedema. HEAD/NECK normocephalic atraumatic, no facial trauma, neck is supple. RESPIRATORY respiratory effort normal, speaks in full sentences, no tripod position, no accessory muscle use. Lungs clear to auscultation without rhonchi, wheezes, rales CARDIAC Regular rate and rhythm, no edema. ABDOMINAL Soft, ND/NT. No evidence of fluid wave. No pulsatile masses on exam, rebound tenderness, Garcia sign or pain over Mcburney's point. MUSCLES/EXTREMITIES No abnormal range of motion, no swelling. SKIN Warm, pink and dry. No rashes, dermatoses, petechiae or lesions. NEUROLOGICAL Speech is clear and appropriate. Normal level of consciousness. Gait and coordination are normal. 5/5 strength in all extremities. PSYCH Normal mood and affect. Judgement/competence is appropriate Results & Data Results & Data Vital Signs (Past 12 Hours) Vital Signs Temp Pulse Pulse Resp BP Pulse Ox O2 Del Method 03/15/25 07:52 36.5 C 64 20 134/71 95 Room Air 03/15/25 05:36 56 L 03/15/25 03:27 36.9 C 88 19 136/88 98 Room Air 03/14/25 23:37 36.9 C 89 16 128/79 96 Room Air PG Care Time/CCT Total # of Minutes Spent Total Time Spent with Patient: Total time spent is greater than 50% in coordination of care (as documented) at patient's floor/unit and/or counseling patient: Coding Level of Care Code 63786 SUB INP/OBS CARE 2/35MIN Diagnoses Stroke-like symptoms R29.90 Hypertension I10 Migraine G43.909
[2025-03-15] MEDS: MAGNESIUM HYDROXIDE SUSP 30 ML UDC PO PRN (14:38)
--- NOTE | 2025-03-16 09:13 | Hospitalist Progress Note ---
Date of Service March 16, 2025 Assessment & Plan (1) Stroke-like symptoms: Plan: Headache, CVA evaluation With known extensive CVD/right basal ganglier lacunar infarct and hx chronic migraine symptoms. At baseline has some chronic gait dysfunction. Patient has a longstanding history of complicated migraine which may be the cause of her symptoms however on exam she has significant right upper and right lower extremity asymmetric weakness with dysmetria and over Continue amitriptyline 50 mg p.o. at bedtime Continue verapamil ER Tylenol, Toradol multimodal breakthrough pain control DHE and triptans contraindicated due to complex migraine and vascular disease dexamethasone 10 mg x 1 followed by 6 mg daily, - continue Fiorcet/Tylenol/Toradol/ramipril/amitriptyline. - MRI negative for acute pathology (2) Hypertension: Plan: -Continue verapamil ER (3) Migraine: Plan 69yo F with a PMHx of complex migraine, CVA, TIA who presents with RUE/RLE/R facial deficits suspicious for CVA for complex migraine. Awaiting placement at SNF, pending authorization. Admission and Anticipated Discharge Date Admission Date: March 12, 2025 Subjective Pt feeling her headaches have significancy improved. Complaining of constipation, no BM in 15 days. Review of Systems Review of Systems: CONST: Negative for fever, body aches and chills. HENT: Negative for neck pain/stiffness, congestion, sore throat, swelling. EYES: Negative for discharge/pain or vision changes. RESP: Negative for cough/hemoptysis and shortness of breath. CV: Negative chest pain, difficulty breathing, palpitations. ABD: Negative pain, nausea, vomiting. : Negative increase frequency, dysuria, blood in urine or stool. MUSC: Negative for muscle aches, edema. SKIN: Negative rash, lesions/sores. NEURO: Negative headache, dizziness, weakness. Physical Exam Physical Exam: GENERAL APPEARANCE NAD, activity normal for age, well developed/ well nourished, no cyanosis, pallor, or diaphoresis. EYES lids/conjunctiva normal. EARS/NOSE/THROAT Mucous membranes moist, nares normal, lips/teeth normal uvula midline without oral pharyngeal erythema, exudate or swelling TMs normal bilaterally. No lymphangitis/lymphedema. HEAD/NECK normocephalic atraumatic, no facial trauma, neck is supple. RESPIRATORY respiratory effort normal, speaks in full sentences, no tripod position, no accessory muscle use. Lungs clear to auscultation without rhonchi, wheezes, rales CARDIAC Regular rate and rhythm, no edema. ABDOMINAL Soft, ND/NT. No evidence of fluid wave. No pulsatile masses on exam, rebound tenderness, Garcia sign or pain over Mcburney's point. MUSCLES/EXTREMITIES No abnormal range of motion, no swelling. SKIN Warm, pink and dry. No rashes, dermatoses, petechiae or lesions. NEUROLOGICAL Speech is clear and appropriate. Normal level of consciousness. Gait and coordination are normal. 5/5 strength in all extremities. PSYCH Normal mood and affect. Judgement/competence is appropriate Results & Data Results & Data Vital Signs (Past 12 Hours) Vital Signs Temp Pulse Pulse Resp BP Pulse Ox O2 Del Method 03/16/25 07:54 36.4 C L 58 L 19 129/76 95 Room Air 03/16/25 05:37 53 L 03/16/25 03:46 36.6 C 56 L 18 123/72 93 Room Air 03/15/25 23:13 36.7 C 63 18 149/83 H 94 Room Air 03/15/25 23:00 61 PG Care Time/CCT Total # of Minutes Spent Total Time Spent with Patient: Total time spent is greater than 50% in coordination of care (as documented) at patient's floor/unit and/or counseling patient: Coding Level of Care Code 90721 SUB INP/OBS CARE 2/35MIN Diagnoses Stroke-like symptoms R29.90 Hypertension I10 Migraine G43.909
[2025-03-16] MEDS: MAGNESIUM CITRATE 296 ML/BTL PO STA (11:10)
[2025-03-16] MEDS: SOD PHOSPHATE/SOD BIPHOSPHATE ENEMA 132 ML BTL PR PRN (20:34)
--- NOTE | 2025-03-17 10:24 | Hospitalist Progress Note ---
Date of Service March 17, 2025 Assessment & Plan (1) Stroke-like symptoms: Plan: Headache, CVA evaluation With known extensive CVD/right basal ganglier lacunar infarct and hx chronic migraine symptoms. At baseline has some chronic gait dysfunction. Patient has a longstanding history of complicated migraine which may be the cause of her symptoms however on exam she has significant right upper and right lower extremity asymmetric weakness with dysmetria and over Continue amitriptyline 50 mg p.o. at bedtime Continue verapamil ER Tylenol, Toradol multimodal breakthrough pain control DHE and triptans contraindicated due to complex migraine and vascular disease dexamethasone 10 mg x 1 followed by 6 mg daily, - continue Fiorcet/Tylenol/Toradol/ramipril/amitriptyline. - MRI negative for acute pathology (2) Hypertension: Plan: -Continue verapamil ER (3) Migraine: Plan 69yo F with a PMHx of complex migraine, CVA, TIA who presents with RUE/RLE/R facial deficits suspicious for CVA for complex migraine. Awaiting placement at SNF, pending authorization. Admission and Anticipated Discharge Date Admission Date: March 12, 2025 Subjective No events overnight. Pt resting comfortably in bed. Had multiple BMs, feeling better. Review of Systems Review of Systems: CONST: Negative for fever, body aches and chills. HENT: Negative for neck pain/stiffness, congestion, sore throat, swelling. EYES: Negative for discharge/pain or vision changes. RESP: Negative for cough/hemoptysis and shortness of breath. CV: Negative chest pain, difficulty breathing, palpitations. ABD: Negative pain, nausea, vomiting. : Negative increase frequency, dysuria, blood in urine or stool. MUSC: Negative for muscle aches, edema. SKIN: Negative rash, lesions/sores. NEURO: Negative headache, dizziness, weakness. Physical Exam Physical Exam: GENERAL APPEARANCE NAD, activity normal for age, well developed/ well nourished, no cyanosis, pallor, or diaphoresis. EYES lids/conjunctiva normal. EARS/NOSE/THROAT Mucous membranes moist, nares normal, lips/teeth normal uvula midline without oral pharyngeal erythema, exudate or swelling TMs normal bilaterally. No lymphangitis/lymphedema. HEAD/NECK normocephalic atraumatic, no facial trauma, neck is supple. RESPIRATORY respiratory effort normal, speaks in full sentences, no tripod position, no accessory muscle use. Lungs clear to auscultation without rhonchi, wheezes, rales CARDIAC Regular rate and rhythm, no edema. ABDOMINAL Soft, ND/NT. No evidence of fluid wave. No pulsatile masses on exam, rebound tenderness, Garcia sign or pain over Mcburney's point. MUSCLES/EXTREMITIES No abnormal range of motion, no swelling. SKIN Warm, pink and dry. No rashes, dermatoses, petechiae or lesions. NEUROLOGICAL Speech is clear and appropriate. Normal level of consciousness. Gait and coordination are normal. 5/5 strength in all extremities. PSYCH Normal mood and affect. Judgement/competence is appropriate Results & Data Results & Data Vital Signs (Past 12 Hours) Vital Signs Temp Pulse Pulse Resp BP Pulse Ox O2 Del Method 03/17/25 08:00 36.4 C L 54 L 18 147/78 H 95 Room Air 03/17/25 05:37 53 L 03/17/25 03:55 36.7 C 64 18 153/77 H 96 Room Air 03/16/25 23:00 85 03/16/25 22:37 36.7 C 67 20 161/96 H 97 Room Air PG Care Time/CCT Total # of Minutes Spent Total Time Spent with Patient: Total time spent is greater than 50% in coordination of care (as documented) at patient's floor/unit and/or counseling patient: Coding Level of Care Code 62748 SUB INP/OBS CARE 2/35MIN Diagnoses Stroke-like symptoms R29.90 Hypertension I10 Migraine G43.909
[2025-03-17 19:41] VITALS: RESP 18
--- NOTE | 2025-03-18 09:50 | Hospitalist Progress Note ---
Date of Service March 18, 2025 Assessment & Plan (1) Stroke-like symptoms: Plan: Headache, CVA evaluation With known extensive CVD/right basal ganglier lacunar infarct and hx chronic migraine symptoms. At baseline has some chronic gait dysfunction. Patient has a longstanding history of complicated migraine which may be the cause of her symptoms however on exam she has significant right upper and right lower extremity asymmetric weakness with dysmetria and over Continue amitriptyline 50 mg p.o. at bedtime Continue verapamil ER Tylenol, Toradol multimodal breakthrough pain control DHE and triptans contraindicated due to complex migraine and vascular disease dexamethasone 10 mg x 1 followed by 6 mg daily, - continue Fiorcet/Tylenol/Toradol/ramipril/amitriptyline. - MRI negative for acute pathology - no further symptoms (2) Hypertension: Plan: -Continue verapamil ER (3) Migraine: Plan 69yo F with a PMHx of complex migraine, CVA, TIA who presents with RUE/RLE/R facial deficits suspicious for CVA for complex migraine. Awaiting placement at SNF, pending authorization. Admission and Anticipated Discharge Date Admission Date: March 12, 2025 Subjective No events overnight. Pt resting comfortably in bed. No complaints Review of Systems Review of Systems: CONST: Negative for fever, body aches and chills. HENT: Negative for neck pain/stiffness, congestion, sore throat, swelling. EYES: Negative for discharge/pain or vision changes. RESP: Negative for cough/hemoptysis and shortness of breath. CV: Negative chest pain, difficulty breathing, palpitations. ABD: Negative pain, nausea, vomiting. : Negative increase frequency, dysuria, blood in urine or stool. MUSC: Negative for muscle aches, edema. SKIN: Negative rash, lesions/sores. NEURO: Negative headache, dizziness, weakness. Physical Exam Physical Exam: GENERAL APPEARANCE NAD, activity normal for age, well developed/ well nourished, no cyanosis, pallor, or diaphoresis. EYES lids/conjunctiva normal. EARS/NOSE/THROAT Mucous membranes moist, nares normal, lips/teeth normal uvula midline without oral pharyngeal erythema, exudate or swelling TMs normal bilaterally. No lymphangitis/lymphedema. HEAD/NECK normocephalic atraumatic, no facial trauma, neck is supple. RESPIRATORY respiratory effort normal, speaks in full sentences, no tripod position, no accessory muscle use. Lungs clear to auscultation without rhonchi, wheezes, rales CARDIAC Regular rate and rhythm, no edema. ABDOMINAL Soft, ND/NT. No evidence of fluid wave. No pulsatile masses on exam, rebound tenderness, Garcia sign or pain over Mcburney's point. MUSCLES/EXTREMITIES No abnormal range of motion, no swelling. SKIN Warm, pink and dry. No rashes, dermatoses, petechiae or lesions. NEUROLOGICAL Speech is clear and appropriate. Normal level of consciousness. Gait and coordination are normal. 5/5 strength in all extremities. PSYCH Normal mood and affect. Judgement/competence is appropriate Results & Data Results & Data Vital Signs (Past 12 Hours) Vital Signs Temp Pulse Pulse Resp BP Pulse Ox O2 Del Method 03/18/25 08:00 58 L 03/18/25 07:08 36.6 C 58 L 18 138/87 96 Room Air 03/18/25 03:03 36.5 C 58 L 18 125/78 94 Room Air 03/18/25 00:00 59 L 03/17/25 22:45 36.6 C 58 L 18 157/88 H 96 Room Air PG Care Time/CCT Total # of Minutes Spent Total Time Spent with Patient: Total time spent is greater than 50% in coordination of care (as documented) at patient's floor/unit and/or counseling patient: Coding Level of Care Code 03352 SUB INP/OBS CARE 2/35MIN Diagnoses Stroke-like symptoms R29.90 Hypertension I10 Migraine G43.909
[2025-03-18 11:38] VITALS: BP 144/81; TEMP 97.7; O2SAT 97
--- NOTE | 2025-03-18 13:39 | Discharge Summary ---
Discharge Summary Date of Service March 18, 2025 Principal Dx & Hospital Course #1 = Principal Diagnosis (1) Stroke-like symptoms: Headache, CVA evaluation With known extensive CVD/right basal ganglier lacunar infarct and hx chronic migraine symptoms. At baseline has some chronic gait dysfunction. Patient has a longstanding history of complicated migraine which may be the cause of her symptoms however on exam she has significant right upper and right lower extremity asymmetric weakness with dysmetria and over Continue amitriptyline 50 mg p.o. at bedtime Continue verapamil ER Tylenol, Toradol multimodal breakthrough pain control DHE and triptans contraindicated due to complex migraine and vascular disease dexamethasone 10 mg x 1 followed by 6 mg daily, - continue Fiorcet/Tylenol/Toradol/ramipril/amitriptyline. - MRI negative for acute pathology - no further symptoms (2) Hypertension: -Continue verapamil ER (3) Migraine: Plan 69yo F with a PMHx of complex migraine, CVA, TIA who presents with RUE/RLE/R facial deficits suspicious for CVA for complex migraine. Awaiting placement at SNF, pending authorization. Admission HPI Per Admitting Provider Charley is a 69-year-old female with past medical history of parkinsonism, frequent falls, anxiety, IBS, TIA, hypothyroidism, hypertension, and complex migraine who presented for stroke evaluation. mbolysis She was evaluated as a stroke alert Per ER sign out: - Hx of complex migraine with neurologic symptoms - Has has status migranosis (migraine x12 days) - Home migrane medicnes werent helping - Work up this morning 7am and had development of R arm, R face, R leg numbness. +dysarhtria and drooling from R face. - RUE/RLE testing in ER with cerebellar findings. Slight drift, but very poor coordination. +slurring speech on ER exam - CT series with chronic findings, naf - MRI pending - Dr. Rojo telestroke --> Unclear if stroke vs complex migraine. Outside of TNKase window. +Migraine cocktail. Follow for a few hours. If improving dc as complex migraine, if not --> complete stroke workup. Passed swallow eval. Seen at the bedside. She reports that she has had several days of a migraine similar to her prior migraine which has not resolved with her normal home treatments. She was not overly concerned about this until this morning when she woke up and had new right face, right arm, right leg numbness and tingling and was unable to drink coffee because this dribbled out of the right side of her m outh. She has since noticed that while her facial sensation has improved and she is able to puff out her cheeks she has difficulty using her r cell phone with her dominant right hand. She is weak in the right arm and is not able to lift this past the shoulder. Right leg also feels weak. The symptoms have been present since she woke up around 78:00 in the morning. She has not taken any aspirin. She reports she takes Plavix and did take this this morning. She does not think she takes blood thinners any further. She has had some tenderness to palpation of her chest otherwise denies chest pain. No shortness of breath. No fevers chills or sweats. No cough. No dysuria. Medical History: Reviewed Medications: Reviewed Surgical History: Reviewed Family history: Reviewed Allergies: Reviewed Social History: No tobacco. No ETOH. Code Status: Surrogate LITO ann "shes like a daughter to me and knows me", as a backup would want her son Fredy called. DNR/DNI Discharge Exam GENERAL APPEARANCE NAD, activity normal for age, well developed/ well nourished, no cyanosis, pallor, or diaphoresis. EYES lids/conjunctiva normal. EARS/NOSE/THROAT Mucous membranes moist, nares normal, lips/teeth normal uvula midline without oral pharyngeal erythema, exudate or swelling TMs normal bilaterally. No lymphangitis/lymphedema. HEAD/NECK normocephalic atraumatic, no facial trauma, neck is supple. RESPIRATORY respiratory effort normal, speaks in full sentences, no tripod position, no accessory muscle use. Lungs clear to auscultation without rhonchi, wheezes, rales CARDIAC Regular rate and rhythm, no edema. ABDOMINAL Soft, ND/NT. No evidence of fluid wave. No pulsatile masses on exam, rebound tenderness, Garcia sign or pain over Mcburney's point. MUSCLES/EXTREMITIES No abnormal range of motion, no swelling. SKIN Warm, pink and dry. No rashes, dermatoses, petechiae or lesions. NEUROLOGICAL Speech is clear and appropriate. Normal level of consciousness. Gait and coordination are normal. 5/5 strength in all extremities. PSYCH Normal mood and affect. Judgement/competence is appropriate Discharge Plan Discharge Items Patient Disposition: Home - Self-Care Reason For Visit: RUE/RLL WEAKNESS. COMPLEX MIGRAINE VS CVA EVAL Discharge Diagnosis: complex migraine headache Condition on Discharge: Serious Activity: Resume your previous activity Non-emergency contact: Primary Care Provider Call non-emergency contact if: you have any medication questions Follow-up/Referrals: Angelina Hobbs CRNP [Primary Care Provider] - Diet: Regular Addtl Attending Provider Instructions: Follow up with [facility] for 2 weeks Pending Studies at Discharge: No Stand-Alone Forms: My [employer], Smoking Cessation Medications and DC Order Prescriptions: New aspirin 81 mg Tablet,Delayed Release (Dr/Ec) 81 mg PO DAILY Qty: 30 0RF Continued fluticasone propionate 50 mcg/actuation spray,suspension 1 spray intranasal QAM PRN (Reason: Allergy Symptoms) Qty: 16 3RF Rx Instructions: 03/12-OTC/not on list from pharmacy. unable to verify potassium chloride [Klor-Con 10] 10 mEq tablet extended release 10 meq PO QAM Qty: 30 11RF sodium chloride 1,000 mg tablet,soluble 1,000 mg PO BID Qty: 60 11RF lisinopril 10 mg tablet 10 mg PO QAM Qty: 90 3RF levothyroxine 75 mcg capsule 75 mcg PO DAILY Qty: 90 3RF valacyclovir 500 mg tablet 500 mg PO HS Qty: 90 4RF mirtazapine [Remeron] 15 mg tablet 15 mg PO DAILY Qty: 30 6RF pantoprazole 40 mg tablet,delayed release (DR/EC) 40 mg PO BID Qty: 180 3RF clopidogrel 75 mg tablet 75 mg PO DAILY Qty: 90 3RF venlafaxine 75 mg capsule,extended release 24hr 75 mg PO HS Qty: 90 3RF venlafaxine 150 mg capsule,extended release 24hr 150 mg PO QAM Qty: 90 3RF tamsulosin 0.4 mg capsule 0.4 mg PO HS Qty: 90 3RF Rx Instructions: TAKE 1 CAPSULE BY MOUTH DAILY buspirone 10 mg tablet 20 mg PO TID Qty: 180 3RF clonazepam 0.5 mg tablet 0.5 mg PO TID Qty: 90 0RF lakyctqgjx-idvucepeufarq-zzwb 50-325-40 mg tablet 1 - 2 tab PO .Q4-5H PRN (Reason: pain) Qty: 20 0RF Rx Instructions: every 4- 5 hours as needed for severe headache. No more than 2-3 days per week, max 6 tabs in 24 hours ondansetron HCl 4 mg tablet 4 mg PO TID PRN (Reason: nausea and vomiting) Qty: 30 0RF (DME) hospital bed See Rx Instructions .Route .MEDSUPPLY Qty: 1 0RF Rx Instructions: As directed amitriptyline 50 mg tablet 50 mg PO HS 30 Days Qty: 30 5RF verapamil 240 mg capsule,ext rel. pellets 24 hr 240 mg PO HS 30 Days Qty: 30 5RF cyanocobalamin (vitamin B-12) 1,000 mcg Lozenge 1,000 mcg SUBLINGUAL QAM Rx Instructions: 03/12-OTC/not on list from pharmacy. unable to verify latanoprost 0.005 % drops 1 drp ophthalmic (eye) HS Systane (propylene glycol) 0.4-0.3 % Drops 1 drp OPB UD Rx Instructions: 03/12-1 drp eyes qid. OTC/not on list from pharmacy. unable to verify lidocaine 5 % Adhesive Patch,Medicated 1 patch transdermal QAM Qty: 30 0RF Rx Instructions: 1 patch transdermal qam. On hold w/pharmacy diclofenac sodium [Voltaren Arthritis Pain] 1 % gel 2 g EXT QID PRN (Reason: Pain) Rx Instructions: 03/12-OTC/ last filled 03/2024 tobramycin 0.3 % drops 1 drp ophthalmic (eye) UD Rx Instructions: 03/12-1 drp eye q4h. not on list from pharmacy. unable to verify Discharge Orders: Discharge Order (Routine); Ordered 03/18/25 Ordered By: Navi Barragan/Other Patient Handouts: Prediabetes, 5 Steps for Eating Healthier Admission Data Admit Date/Time: 03/12/25 16:17 Attending Provider: Navi Osorio Admit Provider: Jacky Cunningham Primary Care Provider: Angelina Hobbs Other Providers: Jacky Cunningham; [facility] Stay Data Consultations 03/12/25 14:24 ED Decision to Admit Stat 03/12/25 15:46 ED Decision to Admit Stat Diagnostic Imagining Performed 03/12/25 11:34 CT angio head w con Stat CT angio neck with con Stat CT head/brain wo con Stat 03/12/25 16:02 MRI Brain [MR brain wo con] Urgent Pending Results Patient Have Any Pending Studies at Discharge: No Discharge Instructions Given to Patient (Per Discharging Provider) Follow up with [facility] for 2 weeks Total Time Total Time Spent Total Time Spent (In Minutes): 50 Coding Level of Care Code 30487 INP/OBS DISCH >30 MIN Diagnoses Stroke-like symptoms R29.90 Hypertension I10 Migraine G43.909
[2025-03-18 14:50] VITALS: PULSE 59
== END 2025-03-18 17:29 | disposition home health service (06) | DRG 103 ==
LOC: SUATTDRO → ED 11:10 → SUATTDRO 16:17 → 4W 16:17 → 2S 03-17 16:16